=== PATIENT | female | born 1995 | race Hispanic/Latino ===

== ENCOUNTER 2018-03-06 23:06 | Emergency (ER) | payer SELFPAY ==
[2018-03-07 00:12] LABS: Absolute Lymphocytes (CBC) 2.8 K/uL (0.7-4.9); Absolute Monocytes 0.4 K/uL (0.1-1.3); Absolute Neutrophil 3.2 K/uL (1.8-8.0); Basophils % 0.5 % (0-1.3); Eosinophils % 1.1 % (0-4.4); Hematocrit 37.2 % (36.0-45.0); Lymphocytes % 42.6 % (15.3-44.8); MCH 31.7 pg (27.0-35.0); MCV 92.2 fL (80-100); MPV 7.9 fL (7.6-11.3); Monocytes % 6.5 % (3.3-12.3); RBC Red Blood Cell Count 4.04 M/uL (3.86-4.86)
[2018-03-07 00:17] LABS: Urine Blood 1+ (NEG); Urine Glucose NEGATIVE (NEG); Urine Protein NEGATIVE (NEG); Urine Specific Gravity 1.025 (1.005-1.030)
[2018-03-07 00:37] LABS: BUN Blood Urea Nitrogen 9 mg/dL (7-18); Bicarbonate 26 mmol/L (21-32); Glucose Level 85 mg/dL (74-106); Potassium 3.9 mmol/L (3.5-5.1); Sodium Level 141 mmol/L (136-145)
--- NOTE | 2018-03-07 03:39 | EDPHYS ---
Physician Documentation [facility] Name: Lilia Nunez Age: 22 yrs Sex: Female : 1995 Arrival Date: 03/06/2018 Time: 23:07 Bed 23 Private MD: ED Physician Misha Muñoz HPI: 03/07 00:06 This 22 yrs old Female presents to ER via Ambulatory with complaints of jr8 Nausea, Abdominal Pain. 00:06 The patient presents to the emergency department with nausea, abdominal pain, of the jr8 right lower quadrant and left lower quadrant, described as crampy, stabbing. Onset: The symptoms/episode began/occurred gradually, 2 week(s) ago. Possible causes: unknown. The symptoms are aggravated by nothing. The symptoms are alleviated by nothing. Associated signs and symptoms: Pertinent positives: vaginal bleeding. Severity of symptoms: At their worst the symptoms were mild in the emergency department the symptoms are unchanged. The patient has not experienced similar symptoms in the past. The patient has not recently seen a physician. 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 - Social history:: Smoking status: Patient uses tobacco products, smokes one-half pack cigarettes per day. - Ebola Screening: : No symptoms or risks identified at this time. ROS: 03/07 00:06 ENT: Negative for injury, pain, and discharge, Neck: Negative for injury, pain, and jr8 swelling, Cardiovascular: Negative for chest pain, palpitations, and edema, Respiratory: Negative for shortness of breath, cough, wheezing, and pleuritic chest pain, Back: Negative for injury and pain, MS/Extremity: Negative for injury and deformity, Skin: Negative for injury, rash, and discoloration, Neuro: Negative for headache, weakness, numbness, tingling, and seizure. Abdomen/GI: Positive for abdominal pain, nausea, abdominal cramps, Negative for diarrhea, constipation, abdominal distension, anorexia, dysphagia, hematemesis, black/tarry stool, rectal pain, rectal bleeding, bowel incontinence, flatulence. : Positive for vaginal bleeding, menstrual abnormality, Negative for urinary symptoms, vaginal discharge, vaginal itching. Exam: 00:06 Cardiovascular: Regular rate and rhythm with a normal S1 and S2. No gallops, murmurs, jr8 or rubs. Normal PMI, no JVD. No pulse deficits. Respiratory: Lungs have equal breath sounds bilaterally, clear to auscultation and percussion. No rales, rhonchi or wheezes noted. No increased work of breathing, no retractions or nasal flaring. Back: No spinal tenderness. No costovertebral tenderness. Full range of motion. Skin: Warm, dry with normal turgor. Normal color with no rashes, no lesions, and no evidence of cellulitis. MS/ Extremity: Pulses equal, no cyanosis. Neurovascular intact. Full, normal range of motion. Neuro: Awake and alert, GCS 15, oriented to person, place, time, and situation. Cranial nerves II-XII grossly intact. Motor strength 5/5 in all extremities. Sensory grossly intact. Cerebellar exam normal. Normal gait. 00:06 Abdomen/GI: Inspection: abdomen appears normal, Bowel sounds: active, all quadrants, Palpation: soft, in all quadrants, mild abdominal tenderness, in the suprapubic area, right lower quadrant and left lower quadrant, mass, is not appreciated, rebound tenderness, is not appreciated, voluntary guarding, is not appreciated, involuntary guarding, is not appreciated, no appreciated organomegaly, Indicators: McBurney's point is not tender, Leon's sign is negative, Rovsing's sign is negative, Obturator sign is negative, Liver: no appreciated palpable abnormalities, tenderness, is not appreciated. Vital Signs: 03/06 23:47 BP 148 / 100; Pulse 87; Resp 20; Temp 98.1; Pulse Ox 97% on R/A; Weight 72.57 kg (R); ak1 Height 5 ft. 2 in. (157.48 cm) (R); Pain 04/07; 03/07 00:43 BP 120 / 65; Pulse 55; Resp 17; Pulse Ox 100% on R/A; kr2 02:30 BP 134 / 72; Pulse 62; Resp 20; Pulse Ox 100% on R/A; Pain 10; fc 03:50 BP 99 / 70; Pulse 58; Resp 16; Temp 97.6; Pulse Ox 100% on R/A; Pain 0/10; ak1 03/06 23:47 Body Mass Index 29.26 (72.57 kg, 157.48 cm) ak1 MDM: 03/06 23:39 Patient medically screened. 03/07 02:55 ED course: Disposition severely delayed secondary to V-Rad returning imaging report . 03:37 Data reviewed: vital signs, nurses notes, lab test result(s), radiologic studies, CT jr8 scan, and as a result, I will discharge patient. Data interpreted: Pulse oximetry: on room air is 100 %. Interpretation: normal. Counseling: I had a detailed discussion with the patient and/or guardian regarding: the historical points, exam findings, and any diagnostic results supporting the discharge/admit diagnosis, lab results, radiology results, the need for outpatient follow up, an OB/Gyne specialist, to return to the emergency department if symptoms worsen or persist or if there are any questions or concerns that arise at home. 03/06 23:49 Order name: CBC with Diff; Complete Time: 00:40 03/06 23:49 Order name: Basic Metabolic Panel; Complete Time: 00:40 03/06 23:49 Order name: IV; Complete Time: 00:10 03/07 00:12 Order name: Urine Dipstick--Ancillary (enter results); Complete Time: 00:28 03/07 00:12 Order name: Urine --Ancillary (enter results); Complete Time: 00:28 03/07 00:41 Order name: CT Abd/Pelvis - W/Contrast 03/06 23:49 Order name: Urine Test (obtain specimen); Complete Time: 00:10 03/06 23:49 Order name: Urine Dipstick-Ancillary (obtain specimen); Complete Time: 00: Administered Medications: No medications were administered Disposition: 06:58 Co-signature as Attending Physician, Misha Muñoz MD I agree with the assessment and jacek plan of care. Disposition: 03/07/18 03:38 Discharged to Home. Impression: Abdominal and pelvic pain. - Condition is Stable. - Discharge Instructions: Abdominal Pain, Adult. - Prescriptions for Ibuprofen 800 mg Oral Tablet - take 1 tablet by ORAL route every 12 hours As needed take with food; 20 tablet. Zofran 4 mg Oral Tablet - take 1 tablet by ORAL route every 12 hours As needed; 20 tablet. - Medication Reconciliation Form, Thank You Letter, Antibiotic Education, Prescription Opioid Use form. - Follow up: Private Physician; When: 2 - 3 days; Reason: Recheck today's complaints, Continuance of care, Re-evaluation by your physician. - Problem is new. - Symptoms have improved. Signatures: Dispatcher [employer] EDTX Misha Muñoz MD MD cha Roszak, Josh, PA PA jr8 Samantha Saucedo, RN RN ak1 Corrections: (The following items were deleted from the chart) 03:51 03:38 03/07/2018 03:38 Discharged to Home. Impression: Abdominal and pelvic pain. ak1 Condition is Stable. Forms are Medication Reconciliation Form, Thank You Letter, Antibiotic Education, Prescription Opioid Use. Follow up: Private Physician; When: 2 - 3 days; Reason: Recheck today's complaints, Continuance of care, Re-evaluation by your physician. Problem is new. Symptoms have improved. jr8
--- NOTE | 2018-03-07 03:39 | ER ---
Nurse's Notes [facility] Name: Lilia Nunez Age: 22 yrs Sex: Female : 1995 Arrival Date: 03/06/2018 Time: 23:07 Bed 23 Private MD: Diagnosis: Abdominal and pelvic pain Presentation: 03/06 23:45 Presenting complaint: Patient states: mid and lower abd pain since 02/15 after starting ak1 her cycle a second time for the month. pt LMP 01/30/18. pt c/o nausea. Transition of care: patient was not received from another setting of care. Onset of symptoms is unknown. Risk Assessment: Do you want to hurt yourself or someone else? Patient reports no desire to harm self or others. Initial Sepsis Screen: Does the patient meet any 2 criteria? No. Patient's initial sepsis screen is negative. Does the patient have a suspected source of infection? No. Patient's initial sepsis screen is negative. Care prior to arrival: None. 23:45 Method Of Arrival: Ambulatory ak1 23:45 Acuity: TERRY 3 ak1 Triage Assessment: 23:47 General: Appears in no apparent distress. Behavior is calm, cooperative. Pain: ak1 Complains of pain in abdomen. EENT: No signs and/or symptoms were reported regarding the EENT system. Neuro: No deficits noted. Cardiovascular: No deficits noted. Respiratory: No deficits noted. GI: Reports lower abdominal pain, nausea. : Reports vaginal bleeding that is. Derm: No signs and/or symptoms reported regarding the dermatologic system. Musculoskeletal: No signs and/or symptoms reported regarding the musculoskeletal system. 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 - Social history:: Smoking status: Patient uses tobacco products, smokes one-half pack cigarettes per day. - Ebola Screening: : No symptoms or risks identified at this time. Screenin:48 Abuse screen: Denies threats or abuse. Denies injuries from another. Nutritional ak1 screening: No deficits noted. Tuberculosis screening: No symptoms or risk factors identified. Fall Risk None identified. Assessment: 23:55 General: Appears in no apparent distress. uncomfortable, well groomed, well developed, kr2 well nourished, Behavior is calm, cooperative, appropriate for age. Pain: Complains of pain in suprapubic area, right lower quadrant and left lower quadrant Pain currently is 5 out of 10 on a pain scale. Quality of pain is described as aching, crampy, tender, Is continuous, Alleviated by rest, Aggravated by increased activity. Neuro: Level of Consciousness is awake, alert, obeys commands, Oriented to person, place, time, situation, Appropriate for age. Cardiovascular: Capillary refill < 3 seconds in bilateral fingers Patient's skin is warm and dry. Respiratory: Airway is patent Respiratory effort is even, unlabored, Respiratory pattern is regular, symmetrical. GI: Abdomen is flat, non-distended, Reports nausea, vomiting. : Urine is clear. EENT: Oral mucosa is moist. Derm: Skin is intact, is healthy with good turgor, Skin is clammy, Skin is pink, Skin temperature is warm. Musculoskeletal: Circulation, motion, and sensation intact. 03/07 01:15 General: Appears in no apparent distress. uncomfortable, Behavior is calm, cooperative, fc appropriate for age. Pain: Complains of pain in abdomen Quality of pain is described as aching, crampy, tender, Is continuous. Neuro: Level of Consciousness is awake, alert, obeys commands, Oriented to person, place, time, situation. Cardiovascular: No deficits noted. Respiratory: No deficits noted. GI: Abdomen is non-distended, Bowel sounds present X 4 quads. Abd is soft X 4 quads Abdomen is tender to palpation X 4 quads. Reports nausea, vomiting. : No deficits noted. EENT: No deficits noted. Derm: Skin is pink, warm \T\ dry. Musculoskeletal: Circulation, motion, and sensation intact. Capillary refill < 3 seconds. 02:45 Reassessment: No changes from previously documented assessment. Patient and/or family fc updated on plan of care and expected duration. Pain level reassessed. Patient is alert, oriented x 3, equal unlabored respirations, skin warm/dry/pink. Awaiting results of CT. Vital Signs: 03/06 23:47 BP 148 / 100; Pulse 87; Resp 20; Temp 98.1; Pulse Ox 97% on R/A; Weight 72.57 kg (R); ak1 Height 5 ft. 2 in. (157.48 cm) (R); Pain 8/10; 07 00:43 BP 120 / 65; Pulse 55; Resp 17; Pulse Ox 100% on R/A; kr2 02:30 BP 134 / 72; Pulse 62; Resp 20; Pulse Ox 100% on R/A; Pain 4/10; fc 03:50 BP 99 / 70; Pulse 58; Resp 16; Temp 97.6; Pulse Ox 100% on R/A; Pain 0/10; ak1 03/06 23:47 Body Mass Index 29.26 (72.57 kg, 157.48 cm) ak1 ED Course: 03/06 23:07 Patient arrived in ED. es 23:39 Jadiel Roth PA is PHCP. jr8 23:39 Misha Muñoz MD is Attending Physician. jr8 23:46 Triage completed. ak1 23:47 Arm band placed on Patient placed in an exam room, on a stretcher, on pulse oximetry, ak1 Patient notified of wait time. 23:49 Patient has correct armband on for positive identification. Bed in low position. Call ak1 light in reach. Side rails up X 1. Pulse ox on. NIBP on. 23:59 Mei Vizcarra, RN is Primary Nurse. kr2 03/07 00:00 Inserted saline lock: 22 gauge in right antecubital area, using aseptic technique. kr2 Blood collected. 01:52 CT Abd/Pelvis - W/Contrast In Process Unspecified. EDMS 01:53 CT completed. Patient tolerated procedure well. Patient moved to CT via wheelchair. eh Patient moved back from CT. 03:49 No provider procedures requiring assistance completed. IV discontinued, intact, ak1 bleeding controlled, No redness/swelling at site. Pressure dressing applied. Administered Medications: No medications were administered Outcome: 03:38 Discharge ordered by . jr8 03:50 Discharged to home ambulatory, with family. ak1 03:50 Condition: improved 03:50 Discharge instructions given to patient, family, Instructed on discharge instructions, follow up and referral plans. medication usage, Demonstrated understanding of instructions, follow-up care, medications, Prescriptions given X 2. 03:51 Patient left the ED. ak1 Signatures: Dispatcher [employer] Natalia Mcdaniels Ervin eh Chretien, Felicia, RN RN Jadiel Pratt PA PA jr8 Krenek, Amber RN RN ak1 Mei Vizcarra RN RN kr2
--- NOTE | 2018-03-07 08:48 | RAD REPORT ---
EXAM DESCRIPTION: CTAbdomen Pelvis W Contrast - 03/07/2018 6:44 am CLINICAL HISTORY: Abdominal pain. iv only;Abd pain COMPARISON: Head C Spine Cap W Con dated 02/27/2017 TECHNIQUE: Biphasic CT imaging of the abdomen and pelvis was performed with 100 ml non-ionic IV cont rast. All CT scans are performed using dose optimization technique as appropriate and may include automated exposure control or mA/KV adjustment according to patient size. FINDINGS: The lung bases are clear. The liver, spleen, pancreas, adrenal glands and kidneys are within normal limits. No bowel obstruction, free air, free fluid or abscess. Moderate fecal retention in the colon. The ashvin endix is normal. No evidence of significant lymphadenopathy. No suspicious bony findings. IMPRESSION: No acute intra-abdominal or pelvic finding. Moderate fecal retention in the colon.
== END 2018-03-07 03:51 | disposition home or self-care (01) ==
LOC: ER 23:06
DX: R10.2 Pelvic and perineal pain (principal); F17.210 Nicotine dependence, cigarettes, uncomplicated
CPT/HCPCS: 36415; 74177; 80048; 81003; 81025; 85025; 99284; Q9967

== ENCOUNTER 2018-06-06 00:58 | Emergency (ER) | payer SELFPAY ==
[2018-06-06] MEDS ORDERED: ONDANSETRON 4 MG/2 ML VIAL ONE (01:51)
[2018-06-06] MEDS ORDERED: NA CHLORIDE 0.9% 2,000 ML ONE (01:51)
[2018-06-06 01:57] LABS: Absolute Lymphocytes (CBC) 1.2 K/uL (0.7-4.9); Absolute Monocytes 0.5 K/uL (0.1-1.3); Basophils % 0.3 % (0-1.3); Eosinophils % 0.1 % (0-4.4); Hematocrit 38.1 % (36.0-45.0); Lymphocytes % 15.9 % (15.3-44.8); MCH 32.4 pg (27.0-35.0); MCV 91.8 fL (80-100); MPV 7.8 fL (7.6-11.3); Monocytes % 5.8 % (3.3-12.3); RBC Red Blood Cell Count 4.16 M/uL (3.86-4.86)
[2018-06-06 02:12] LABS: ALT/SGPT 21 U/L (12-78); AST/SGOT 13 U/L (15-37); Albumin 3.8 g/dL (3.4-5.0); Alkaline Phosphatase 79 U/L (45-117); BUN Blood Urea Nitrogen 10 mg/dL (7-18); Bicarbonate 25 mmol/L (21-32); Bilirubin Direct < 0.1 mg/dL (0-0.2); Bilirubin Total 0.2 mg/dL (0.2-1.0); Glucose Level 126 mg/dL (74-106); Lipase 102 U/L (73-393); Potassium 3.9 mmol/L (3.5-5.1); Protein, Total 7.3 g/dL (6.4-8.2); Sodium Level 139 mmol/L (136-145)
--- NOTE | 2018-06-06 02:56 | ER ---
Nurse's Notes [facility] Name: Lilia Nunez Age: 23 yrs Sex: Female : 1995 Arrival Date: 06/06/2018 Time: 01:00 Bed 5 Private MD: Diagnosis: Gastrenteritis Presentation: 06/06 01:09 Presenting complaint: Patient states: Vomiting x5 today; Denies any fever, diarrhea, lp1 abdominal pain; States feeling generalized weakness. Transition of care: patient was not received from another setting of care. Onset of symptoms was June 06, 2018. Risk Assessment: Do you want to hurt yourself or someone else? Patient reports no desire to harm self or others. Initial Sepsis Screen: Does the patient meet any 2 criteria? No. Patient's initial sepsis screen is negative. Does the patient have a suspected source of infection? No. Patient's initial sepsis screen is negative. Care prior to arrival: None. 01:09 Method Of Arrival: Ambulatory lp1 01:09 Acuity: TERRY 3 lp1 Triage Assessment: 01:15 General: Appears in no apparent distress. comfortable, Behavior is calm, cooperative, cc3 appropriate for age. Pain: Denies pain. GI: Reports vomiting, since yesterday. 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 - Social history:: Smoking status: Patient/guardian denies using tobacco. - Ebola Screening: : No symptoms or risks identified at this time. Screenin:12 Abuse screen: Denies threats or abuse. Denies injuries from another. Nutritional lp1 screening: No deficits noted. Tuberculosis screening: No symptoms or risk factors identified. Fall Risk None identified. Assessment: 01:15 General: Appears in no apparent distress. comfortable, Behavior is calm, cooperative, cc3 appropriate for age. Pain: Denies pain. Neuro: Level of Consciousness is awake, alert, obeys commands, Oriented to person, place, time, situation, Appropriate for age. Cardiovascular: Denies chest pain. Respiratory: Airway is patent Respiratory effort is even, unlabored, Respiratory pattern is regular, symmetrical. GI: Abdomen is round non-distended. : No signs and/or symptoms were reported regarding the genitourinary system. EENT: No signs and/or symptoms were reported regarding the EENT system. Derm: No signs and/or symptoms reported regarding the dermatologic system. Musculoskeletal: No signs and/or symptoms reported regarding the musculoskeletal system. 02:15 Reassessment: Patient appears in no apparent distress at this time. Patient and/or cc3 family updated on plan of care and expected duration. Pain level reassessed. Patient is alert, oriented x 3, equal unlabored respirations, skin warm/dry/pink. 03:00 Reassessment: Dr. Santoyo discharged the patient home with prescription given. IV cannula cc3 removed and patient left ER vitally stable and ambulatory. Vital Signs: 01:11 BP 132 / 98; Pulse 93; Resp 16; Pulse Ox 100% on R/A; Weight 74.84 kg; Height 5 ft. 2 lp1 in. (157.48 cm); Pain 0/10; 02:45 BP 128 / 74; Pulse 92; Resp 16 S; Pulse Ox 100% on R/A; Pain 0/10; cc3 01:11 Body Mass Index 30.18 (74.84 kg, 157.48 cm) lp1 ED Course: 01:00 Patient arrived in ED. ds1 01:10 Triage completed. lp1 01:11 Arm band placed on left wrist. lp1 01:15 Patient has correct armband on for positive identification. Bed in low position. Call cc3 light in reach. Side rails up X 1. 01:18 Denae Roldan is Primary Nurse. cc3 01:20 Terry Santoyo MD is Attending Physician. pkl 01:30 Inserted saline lock: 20 gauge in right antecubital area, using aseptic technique. cc3 Blood collected. 02:50 Patient moved to radiology via wheelchair. kw 02:50 X-ray completed. Patient tolerated procedure well. kw 02:50 Patient moved back from radiology. kw 02:50 XRAY Abdomen Acute Series In Process Unspecified. EDMS 03:00 No provider procedures requiring assistance completed. IV discontinued, intact, cc3 bleeding controlled, No redness/swelling at site. Pressure dressing applied. Administered Medications: 01:40 Drug: NS 0.9% 1000 ml Route: IV; Rate: 1000 ml; Site: right antecubital; cc3 02:40 Follow up: Response: No adverse reaction; IV Status: Completed infusion; IV Intake: cc3 1000ml 01:40 Drug: Zofran 4 mg Route: IVP; Site: right antecubital; cc3 02:00 Follow up: Response: No adverse reaction; Nausea is decreased; Vomiting decreased cc3 02:29 Drug: NS 0.9% 1000 ml Route: IV; Rate: 125 ml/hr; Site: right antecubital; cc3 03:00 Follow up: Response: No adverse reaction; IV Status: Order to discontinue infusion; IV cc3 Intake: 100ml Intake: 02:40 IV: 1000ml; Total: 1000ml. cc3 03:00 IV: 100ml; Total: 1100ml. cc3 Outcome: 02:55 Discharge ordered by . teri 03:00 Discharged to home ambulatory. cc3 03:00 Condition: stable 03:00 Discharge instructions given to patient, Instructed on discharge instructions, follow up and referral plans. medication usage, Demonstrated understanding of instructions, follow-up care, medications, Prescriptions given X 1. 03:12 Patient left the ED. cc3 Signatures: Dispatcher [employer] Terry Pool MD MD pkl Sanford, Demi ds1 Argelia Briceno Laura, RN RN lp1 Denae Roldan cc3
--- NOTE | 2018-06-06 02:56 | EDPHYS ---
Physician Documentation [facility] Name: Lilia Nunez Age: 23 yrs Sex: Female : 1995 Arrival Date: 06/06/2018 Time: 01:00 Bed 5 Private MD: ED Physician Terry Santoyo HPI: 06/06 01:25 This 23 yrs old Female presents to ER via Ambulatory with complaints of pkl Vomiting. 01:25 The patient presents to the emergency department with nausea, vomiting, diarrhea. pkl Onset: The symptoms/episode began/occurred yesterday. 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 - Social history:: Smoking status: Patient/guardian denies using tobacco. - Ebola Screening: : No symptoms or risks identified at this time. ROS: 01:25 Eyes: Negative for injury, pain, redness, and discharge, ENT: Negative for injury, pkl pain, and discharge, Neck: Negative for injury, pain, and swelling, Cardiovascular: Negative for chest pain, palpitations, and edema, Respiratory: Negative for shortness of breath, cough, wheezing, and pleuritic chest pain. 01:25 Abdomen/GI: Positive for nausea, vomiting, and diarrhea. 01:25 Back: Negative for acute changes. 01:25 : Negative for urinary symptoms. 01:25 MS/extremity: Negative for acute changes. 01:25 Skin: Negative for rash. 01:25 Neuro: Negative for altered mental status. Exam: 01:25 Head/Face: Normocephalic, atraumatic. Eyes: Pupils equal round and reactive to light, pkl extra-ocular motions intact. Lids and lashes normal. Conjunctiva and sclera are non-icteric and not injected. Cornea within normal limits. Periorbital areas with no swelling, redness, or edema. ENT: Nares patent. No nasal discharge, no septal abnormalities noted. Tympanic membranes are normal and external auditory canals are clear. Oropharynx with no redness, swelling, or masses, exudates, or evidence of obstruction, uvula midline. Mucous membranes moist. Neck: Trachea midline, no thyromegaly or masses palpated, and no cervical lymphadenopathy. Supple, full range of motion without nuchal rigidity, or vertebral point tenderness. No Meningismus. Chest/axilla: Normal chest wall appearance and motion. Nontender with no deformity. No lesions are appreciated. Cardiovascular: Regular rate and rhythm with a normal S1 and S2. No gallops, murmurs, or rubs. Normal PMI, no JVD. No pulse deficits. Respiratory: Lungs have equal breath sounds bilaterally, clear to auscultation and percussion. No rales, rhonchi or wheezes noted. No increased work of breathing, no retractions or nasal flaring. 01:25 Abdomen/GI: Bowel sounds: normal, Palpation: abdomen is soft and non-tender, in all quadrants. 01:25 Back: Exam negative for acute changes. 01:25 : Exam negative for acute changes. 01:25 Musculoskeletal/extremity: Exam is negative for acute changes. 01:25 Skin: Exam negative for rash. 01:25 Neuro: Orientation: is normal, Mentation: is normal, Cranial nerves: grossly normal, Motor: is normal. Vital Signs: 01:11 BP 132 / 98; Pulse 93; Resp 16; Pulse Ox 100% on R/A; Weight 74.84 kg; Height 5 ft. 2 lp1 in. (157.48 cm); Pain 0/10; 02:45 BP 128 / 74; Pulse 92; Resp 16 S; Pulse Ox 100% on R/A; Pain 0/10; cc3 01:11 Body Mass Index 30.18 (74.84 kg, 157.48 cm) lp1 MDM: 01:20 Patient medically screened. pkl 02:45 Data reviewed: vital signs, nurses notes, lab test result(s), radiologic studies, plain pkl films. 06/06 01:24 Order name: Basic Metabolic Panel; Complete Time: 02:21 pkl 06/06 01:24 Order name: CBC with Diff; Complete Time: 02:21 pkl 06/06 01:24 Order name: Creatinine for Radiology; Complete Time: 02:21 pkl 06/06 01:24 Order name: Hepatic Function; Complete Time: 02:21 pkl 06/06 01:24 Order name: Lipase; Complete Time: 02:21 pkl 06/06 01:56 Order name: Urine Dipstick--Ancillary (enter results) ms 06/06 01:24 Order name: IV Saline Lock; Complete Time: 01:42 pkl 06/06 01:24 Order name: Labs collected and sent; Complete Time: 01:42 pkl 06/06 01:56 Order name: Urine --Ancillary (enter results) ms 06/06 02:22 Order name: XRAY Abdomen Acute Series pkl Administered Medications: 01:40 Drug: NS 0.9% 1000 ml Route: IV; Rate: 1000 ml; Site: right antecubital; cc3 02:40 Follow up: Response: No adverse reaction; IV Status: Completed infusion; IV Intake: cc3 1000ml 01:40 Drug: Zofran 4 mg Route: IVP; Site: right antecubital; cc3 02:00 Follow up: Response: No adverse reaction; Nausea is decreased; Vomiting decreased cc3 02:29 Drug: NS 0.9% 1000 ml Route: IV; Rate: 125 ml/hr; Site: right antecubital; cc3 03:00 Follow up: Response: No adverse reaction; IV Status: Order to discontinue infusion; IV cc3 Intake: 100ml Disposition: 06/06/18 02:55 Discharged to Home. Impression: Gastrenteritis. - Condition is Stable. - Prescriptions for Zofran 4 mg Oral Tablet - take 1 tablet by ORAL route every 12 hours As needed; 6 tablet. - Medication Reconciliation Form, Thank You Letter, Antibiotic Education, Prescription Opioid Use form. - Follow up: Private Physician; When: 1 - 2 days; Reason: Re-evaluation by your physician. - Problem is new. - Symptoms have improved. Signatures: Dispatcher [employer] EDMS Terry Santoyo MD MD pkl Gricelda Cisneros RN RN lp1 Denae Roldan cc3 Corrections: (The following items were deleted from the chart) 03:12 02:55 06/06/2018 02:55 Discharged to Home. Impression: Gastrenteritis. Condition is cc3 Stable. Forms are Medication Reconciliation Form, Thank You Letter, Antibiotic Education, Prescription Opioid Use. Follow up: Private Physician; When: 1 - 2 days; Reason: Re-evaluation by your physician. Problem is new. Symptoms have improved. pkl
[2018-06-06 05:49] LABS: Urine Blood 1+ (NEG); Urine Glucose NEGATIVE (NEG); Urine Protein NEGATIVE (NEG)
--- NOTE | 2018-06-06 09:21 | RAD REPORT ---
EXAM DESCRIPTION: RAD - Abdomen Acute Series - 06/06/2018 2:52 am CLINICAL HISTORY: Abdominal pain, vomiting COMPARISON: Chest exam 2008, CT imaging February 2018 FINDINGS: Lungs are clear. Heart size and pulmonary vasculature are normal. No pleural effusion, pne umothorax or other acute cardiopulmonary process seen. No gastric dilatation suspected. There is no dilated large or small bowel seen. Patient does have a m oderate amount of stool filling most of the colon. No free air or pneumatosis. No suspicious calcific ations. No other suspicious for significant findings. IMPRESSION: Moderate stool volume throughout the colon. No large or small bowel obstruction, free ai r or other surgically emergent finding.
== END 2018-06-06 03:12 | disposition home or self-care (01) ==
LOC: ER 00:58
DX: K52.9 Noninfective gastroenteritis and colitis, unspecified (principal)
CPT/HCPCS: 36415; 74022; 80048; 80076; 81003; 81025; 83690; 85025; 96361; 96374; 99284; J2405; J7030

== ENCOUNTER 2019-07-25 15:47 | Emergency (ER) | payer SELFPAY ==
--- OUTSIDE RECORDS SUMMARY | 2019-07-25 15:49 | XMS REPORT ---
:1995 [facility] Address [address] [place] [address] Dr. Williamson. [address] [place] [address] Care Team Providers Name Role Phone Unavailable Unavailable Unavailable Problems This patient has no known problems. Allergies, Adverse Reactions, Alerts This patient has no known allergies or adverse reactions. Medications This patient has no known medications.
[2019-07-25] MEDS ORDERED: TETANUS & DIPHTHERIA TOX,ADULT 0.5 ML VIAL ONE (16:14)
[2019-07-25] MEDS ORDERED: LIDOCAINE 1% MPF 5 ML VIAL ONE ×2 (16:14→16:40)
--- NOTE | 2019-07-25 17:11 | ER ---
Nurse's Notes [facility] Name: Lilia Nunez Age: 24 yrs Sex: Female : 1995 Arrival Date: 07/25/2019 Time: 15:48 Bed 8 Private MD: Diagnosis: Laceration without foreign body of left forearm;Fall on same level from slipping, tripping and stumbling Presentation: 07/25 15:54 Presenting complaint: Patient states: I got light headed while walking and fell on to la1 some rakes in the garage, laceration to left arm. Transition of care: patient was not received from another setting of care. Complicating Factors: There are no complicating factors for this patient. Onset of symptoms was July 25, 2019. Risk Assessment: Do you want to hurt yourself or someone else? Patient reports no desire to harm self or others. Initial Sepsis Screen: Does the patient meet any 2 criteria? No. Patient's initial sepsis screen is negative. Does the patient have a suspected source of infection? No. Patient's initial sepsis screen is negative. Care prior to arrival: None. 15:54 Method Of Arrival: Ambulatory la1 15:54 Acuity: TERRY 3 la1 Historical: - Allergies: 15:57 No Known Allergies; la1 - PMHx: 15:57 Asthma; la1 - Immunization history:: Adult Immunizations up to date. - Social history:: Smoking status: Patient uses tobacco products, smokes one pack cigarettes per day. - Ebola Screening: : No symptoms or risks identified at this time. Screenin:28 Abuse screen: Denies threats or abuse. Denies injuries from another. Nutritional rv screening: No deficits noted. Tuberculosis screening: No symptoms or risk factors identified. Fall Risk None identified. Assessment: 16:25 General: Appears in no apparent distress. comfortable, Behavior is calm, cooperative. rv Pain: Complains of pain in left arm. Neuro: Level of Consciousness is awake, alert, obeys commands, Oriented to person, place, time, situation. Cardiovascular: Patient's skin is warm and dry. Respiratory: Airway is patent. GI: No signs and/or symptoms were reported involving the gastrointestinal system. : No signs and/or symptoms were reported regarding the genitourinary system. EENT: No signs and/or symptoms were reported regarding the EENT system. Derm: Skin is intact. Musculoskeletal: Reports pain in left arm. Injury Description: Laceration sustained to left arm is clean, 2.6 to 7.5 cm long, not bleeding. 16:28 Reassessment: patient refused CT scan. rv 16:31 Reassessment: patient also refused Xray. referred to KRISTYN Stoll. rv 17:01 Reassessment: Patient appears in no apparent distress at this time. No changes from ph previously documented assessment. Patient is alert, oriented x 3, equal unlabored respirations, skin warm/dry/pink. 17:38 Reassessment: Patient appears in no apparent distress at this time. No changes from ph previously documented assessment. Patient is alert, oriented x 3, equal unlabored respirations, skin warm/dry/pink. Pt instructed on suture care and to follow up for suture removal in 10-14 days. Vital Signs: 15:57 BP 140 / 100; Pulse 104; Resp 16; Temp 98.1; Pulse Ox 100% on R/A; Weight 77.11 kg; la1 Height 5 ft. 2 in. (157.48 cm); 16:05 BP 126 / 75 Supine; Pulse 91; lt1 16:08 BP 122 / 83 Sitting; Pulse 87; lt1 16:11 BP 129 / 94 Standing; Pulse 106; lt1 17:39 BP 118 / 84; Pulse 87; Resp 18; Temp 97.9; Pulse Ox 99% on R/A; ph 15:57 Body Mass Index 31.09 (77.11 kg, 157.48 cm) la1 ED Course: 15:48 Patient arrived in ED. mr 15:56 Triage completed. la1 15:57 Arm band placed on left wrist. la1 15:59 Dodie Bruce FNP-C is [facility]. kb 15:59 Blaze Quiñones MD is Attending Physician. kb 16:18 Maria Luisa Hdz RN is Primary Nurse. ph 16:27 Wound care: to laceration located on left arm was cleaned with Hibiclens, irrigated rv with normal saline, dressed with 4X4s, Patient tolerated well. 16:28 Patient has correct armband on for positive identification. Bed in low position. Call rv light in reach. Side rails up X 1. Pulse ox on. NIBP on. 17:00 No provider procedures requiring assistance completed. Patient did not have IV access ph during this emergency room visit. Dressings: Kerlix X 1; left arm 4X4s. 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 Exp: rv 02/01/2021. Lot #: [id number]. } Route: IM; Site: right deltoid; 17:42 Follow up: Response: No adverse reaction ph 17:01 Drug: Lidocaine (1 %) 1 vials Volume: 5 ml; Route: Infiltration; ph Outcome: 17:10 Discharge ordered by . karel 17:41 Discharged to home ambulatory, with significant other. ph 17:41 Condition: good 17:41 Discharge instructions given to patient, Instructed on discharge instructions, follow up and referral plans. medication usage, wound care, Demonstrated understanding of instructions, follow-up care, medications, wound care, Prescriptions given X 1. 17:42 Patient left the ED. ph Signatures: Dodie Bruce, DRONE OPERATOR-C DRONE OPERATOR-Ckb NolandNicole Lee, DRONE OPERATOR-C DRONE OPERATOR-Cla1 Maria Luisa Hdz, RN RN Harlan Marques, LYNETTE OJEDA Theresa, [facility]
--- NOTE | 2019-07-25 17:11 | EDPHYS ---
Physician Documentation [facility] Name: Lilia Nunez Age: 24 yrs Sex: Female : 1995 Arrival Date: 07/25/2019 Time: 15:48 Bed 8 Private MD: ED Physician Blaze Quiñones HPI: 07/25 16:24 This 24 yrs old Female presents to ER via Ambulatory with complaints of Passed kb Out Prior To Arrival, Laceration To Arm. 17:11 Details of fall: The patient fell from an upright position, while walking. Onset: The kb symptoms/episode began/occurred just prior to arrival. Associated injuries: The patient sustained palmar aspect of left forearm, laceration, 2 lacerations, each 4cm in length. Severity of symptoms: At their worst the symptoms were moderate, in the emergency department the symptoms are unchanged. The patient has not experienced similar symptoms in the past. The patient has not recently seen a physician. Pt reports she was walking outside and either tripped on the step or got lightheaded and the step caused her to fall. Pt fell onto metal rake with left arm causing 2 lacerations. Pt believes she passed out for a few seconds after fall. Can recall all events. . Historical: - Allergies: 15:57 No Known Allergies; la1 - PMHx: 15:57 Asthma; la1 - Immunization history:: Adult Immunizations up to date. - Social history:: Smoking status: Patient uses tobacco products, smokes one pack cigarettes per day. - Ebola Screening: : No symptoms or risks identified at this time. ROS: 16:21 Constitutional: Negative for fever, chills, and weight loss, Eyes: Negative for injury, kb pain, redness, and discharge, ENT: Negative for injury, pain, and discharge, Neck: Negative for injury, pain, and swelling, Cardiovascular: Negative for chest pain, palpitations, and edema, Respiratory: Negative for shortness of breath, cough, wheezing, and pleuritic chest pain, Abdomen/GI: Negative for abdominal pain, nausea, vomiting, diarrhea, and constipation, Back: Negative for injury and pain. 16:21 Skin: Positive for laceration(s), of the palmar aspect of left forearm. 16:21 Neuro: Positive for dizziness, headache, loss of consciousness. kb Exam: 16:21 Constitutional: This is a well developed, well nourished patient who is awake, alert, kb and in no acute distress. Head/Face: Normocephalic, atraumatic. Eyes: Pupils equal round and reactive to light, extra-ocular motions intact. Lids and lashes normal. Conjunctiva and sclera are non-icteric and not injected. Cornea within normal limits. Periorbital areas with no swelling, redness, or edema. ENT: Nares patent. No nasal discharge, no septal abnormalities noted. Tympanic membranes are normal and external auditory canals are clear. Oropharynx with no redness, swelling, or masses, exudates, or evidence of obstruction, uvula midline. Mucous membranes moist. Neck: Trachea midline, no thyromegaly or masses palpated, and no cervical lymphadenopathy. Supple, full range of motion without nuchal rigidity, or vertebral point tenderness. No Meningismus. Chest/axilla: Normal chest wall appearance and motion. Nontender with no deformity. No lesions are appreciated. Cardiovascular: Regular rate and rhythm with a normal S1 and S2. No gallops, murmurs, or rubs. Normal PMI, no JVD. No pulse deficits. Respiratory: Lungs have equal breath sounds bilaterally, clear to auscultation and percussion. No rales, rhonchi or wheezes noted. No increased work of breathing, no retractions or nasal flaring. Abdomen/GI: Soft, non-tender, with normal bowel sounds. No distension or tympany. No guarding or rebound. No evidence of tenderness throughout. MS/ Extremity: Pulses equal, no cyanosis. Neurovascular intact. Full, normal range of motion. Neuro: Awake and alert, GCS 15, oriented to person, place, time, and situation. Cranial nerves II-XII grossly intact. Motor strength 5/5 in all extremities. Sensory grossly intact. Cerebellar exam normal. Normal gait. 16:21 Skin: injury, laceration(s), the wound is approximately 4 cm(s), of the palmar aspect of left forearm, the second wound is approximately 4 cm(s), of the palmar aspect of left forearm, that can be described as clean, no foreign body, linear, without bleeding. Vital Signs: 15:57 BP 140 / 100; Pulse 104; Resp 16; Temp 98.1; Pulse Ox 100% on R/A; Weight 77.11 kg; la1 Height 5 ft. 2 in. (157.48 cm); 16:05 BP 126 / 75 Supine; Pulse 91; lt1 16:08 BP 122 / 83 Sitting; Pulse 87; lt1 16:11 BP 129 / 94 Standing; Pulse 106; lt1 17:39 BP 118 / 84; Pulse 87; Resp 18; Temp 97.9; Pulse Ox 99% on R/A; ph 15:57 Body Mass Index 31.09 (77.11 kg, 157.48 cm) la1 Laceration: 17:05 Wound Repair of 8cm ( 3.1in ) subcutaneous laceration to palmar aspect of left forearm. kb Linear shaped.. Distal neuro/vascular/tendon intact. Anesthesia: Local anesthetic administered with 8 mls of 1% lidocaine. Wound prep: Extensive cleansing with hibiclenz by me, Wound irrigation with saline by me. Skin closed with 9 4-0 Prolene using interrupted sutures and sterile technique. Dressed with Neosporin, bandaid. Patient tolerated well. MDM: 15:59 Patient medically screened. kb 16:20 Data reviewed: vital signs, nurses notes. Data interpreted: Pulse oximetry: on room air kb is 100 %. Interpretation: normal. 17:07 Counseling: I had a detailed discussion with the patient and/or guardian regarding: the kb historical points, exam findings, and any diagnostic results supporting the discharge/admit diagnosis, the need for outpatient follow up, a family practitioner, to return to the emergency department if symptoms worsen or persist or if there are any questions or concerns that arise at home. ED course: Two parallel lacerations measuring 4cm each. 4 sutures placed through both lacerations to close skin. 2 simple sutures used to complete closure of distal laceration. 3 simple sutures placed to complete closure of proximal laceration.. 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 Lot #: [id number]. } Route: IM; Site: right deltoid; 17:42 Follow up: Response: No adverse reaction ph 17:01 Drug: Lidocaine (1 %) 1 vials Volume: 5 ml; Route: Infiltration; ph Disposition: 07/25/19 17:10 Discharged to Home. Impression: Laceration without foreign body of left forearm, Fall on same level from slipping, tripping and stumbling. - Condition is Stable. - Discharge Instructions: Laceration Care, Adult, Lade-nd-Lnlr, Fall Prevention in the Home, Poic-tg-Nmet. - Prescriptions for Diclofenac Sodium 75 mg Oral Tablet, Delayed Release (E.C.) - take 1 tablet by ORAL route 2 times per day As needed; 30 tablet. - Medication Reconciliation Form, Thank You Letter, Antibiotic Education, Prescription Opioid Use, Work release form form. - Follow up: Emergency Department; When: As needed; Reason: Worsening of condition. Follow up: Private Physician; When: 2 - 3 days; Reason: Recheck today's complaints, Continuance of care, Re-evaluation by your physician. - Notes: Have sutures removed in 10-14 days Keep clean and dry Addendum: 07/30/2019 09:56 Co-signature as Attending Physician, Blaze Quiñones MD I agree with the assessment and k dr plan of care. Signatures: Dispatcher [employer] EDOR Dodie Bruce, HOME CARE ASSOCIATE-C HOME CARE ASSOCIATE-Ckb Blaze Quiñones MD MD [facility] Nikunj Boswell HOME CARE ASSOCIATE-C HOME CARE ASSOCIATE-Cla1 Maria Luisa Hdz, RN RN Harlan Espinosa, LYNETTE RN rv Corrections: (The following items were deleted from the chart) 07/25 16:34 16:11 Head Brain Wo Cont+CT.RAD.BRZ ordered. [facility] EDOR 16:36 16:24 Forearm Left+RAD.RAD.BRZ ordered. [facility] EDOR 17:42 17:10 07/25/2019 17:10 Discharged to Home. Impression: Laceration without foreign body ph of left forearm; Fall on same level from slipping, tripping and stumbling. Condition is Stable. Forms are Medication Reconciliation Form, Thank You Letter, Antibiotic Education, Prescription Opioid Use. Follow up: Emergency Department; When: As needed; Reason: Worsening of condition. Follow up: Private Physician; When: 2 - 3 days; Reason: Recheck today's complaints, Continuance of care, Re-evaluation by your physician. kb
[2019-07-25 18:04] VITALS: BP 118/84; TEMP 97.9; O2SAT 99
== END 2019-07-25 17:42 | disposition home or self-care (01) ==
LOC: ER 15:47
PROC: 0DQQXZZ Repair Anus, External Approach (ICD-10-PCS; principal; 2019-07-25)
DX: S51.812A Laceration without foreign body of left forearm, initial encounter (principal); W01.0XXA Fall on same level from slipping, tripping and stumbling without subsequent striking against object, initial encounter; Y93.89 Activity, other specified; Y92.9 Unspecified place or not applicable; Z23 Encounter for immunization; F17.210 Nicotine dependence, cigarettes, uncomplicated
CPT/HCPCS: 90471; 90714; 99284

== ENCOUNTER 2019-07-28 22:53 | Emergency (ER) | payer SELFPAY ==
--- OUTSIDE RECORDS SUMMARY | 2019-07-28 22:54 | XMS REPORT ---
:1995 [facility] Address [address] [place] [address] Dr. Williamson. [address] [place] [address] Care Team Providers Name Role Phone Unavailable Unavailable Unavailable Problems This patient has no known problems. Allergies, Adverse Reactions, Alerts This patient has no known allergies or adverse reactions. Medications This patient has no known medications.
[2019-07-28 23:24] LABS: Absolute Lymphocytes (CBC) 1.2 K/uL (0.7-4.9); Basophils % 0.6 % (0-1.3); Hematocrit 40.8 % (36.0-45.0); Lymphocytes % 10.7 % (15.3-44.8); MPV 7.7 fL (7.6-11.3); RBC Red Blood Cell Count 4.64 M/uL (3.86-4.86)
[2019-07-28 23:33] LABS: Protime INR 1.16
[2019-07-28] MEDS ORDERED: NA CHLORIDE 0.9% 1,000 ML ONE (23:37)
[2019-07-28 23:46] LABS: ALT/SGPT 24 U/L (12-78); AST/SGOT 23 U/L (15-37); Albumin 4.3 g/dL (3.4-5.0); Alkaline Phosphatase 77 U/L (45-117); BUN Blood Urea Nitrogen 8 mg/dL (7-18); Bicarbonate 21 mmol/L (21-32); Bilirubin Direct 0.2 mg/dL (0-0.2); Bilirubin Total 0.6 mg/dL (0.2-1.0); Glucose Level 86 mg/dL (74-106); Potassium 3.1 mmol/L (3.5-5.1); Sodium Level 136 mmol/L (136-145)
[2019-07-28] MEDS ORDERED: CEFTRIAXONE/SWI 1gm 1 GM/10 ML SYR ONE (23:48)
[2019-07-29 00:11] LABS: Barbiturates NEGATIVE (NEGATIVE); Benzodiazepines NEGATIVE (NEGATIVE); Cocaine NEGATIVE (NEGATIVE); METHAMPHETAM POSITIVE (NEGATIVE); Methadone NEGATIVE (NEGATIVE); Opiates NEGATIVE (NEGATIVE); Phencyclidine NEGATIVE (NEGATIVE); THC Cannibis POSITIVE (NEGATIVE)
[2019-07-29 00:12] LABS: Urine Blood 3+ (NEG); Urine Glucose NEGATIVE (NEG); Urine Protein TRACE (NEG)
[2019-07-29] MEDS ORDERED: POTASSIUM 25 MEQ EFFERV TAB ONE (01:46)
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
[2019-07-29 05:19] VITALS: BP 132/88; TEMP 98.6; O2SAT 99
--- NOTE | 2019-07-29 06:12 | EKG ---
Test Date: 2019-07-28 Test Time: 23:21:19 Storm Window Installer: GIGI MEASUREMENT RESULTS: Intervals: Rate: 85 UT: 148 QRSD: 86 QT: 384 QTc: 456 [place]: P: 32 UT: 148 QRS: 132 T: 25 INTERPRETIVE STATEMENTS: Sinus rhythm with premature atrial complexes Right axis deviation Abnormal ECG No previous ECG available for comparison Electronically Signed On 07-29-19 06:12:13 PIN SORTER AND BAGGER by Rickey Bedolla
--- NOTE | 2019-07-31 13:37 | RAD REPORT ---
EXAM DESCRIPTION: CT of the head without contrast CLINICAL HISTORY: DIZZINESS COMPARISON: None available TECHNIQUE: Axial CT of the head obtained from the skull apex to the skull base without contrast. FINDINGS: No acute intracranial hemorrhage identified. No mass, mass effect, shift of the midline, a bnormal extra-axial fluid collection or CT evidence of acute ischemic change identified. The ventricu lar system is unremarkable. No acute abnormalities of the supratentorial white matter, basal gangli a, cerebellum, or brainstem. The visualized paranasal sinuses and the mastoids are clear. No skull fracture identified. Visualized orbits and globes are unremarkable. IMPRESSION: 1. No acute intracranial abnormality identified. This exam was performed according to our departmental dose-optimization program, which includes autom ated exposure control, adjustment of the mA and/or kV according to patient size and/or use of iterati ve reconstruction technique. Electronically signed by: Guanaco Wilcox 07/29/2019 1:28 AM FIRE MANAGEMENT OFFICER Due to temporary technical issues with the PACS/Fluency reporting system, reports are being signed by the in house radiologist as a courtesy to ensure prompt reporting. The interpreting radiologist is f ully responsible for the content of the report.
== END 2019-07-29 04:41 | disposition home or self-care (01) ==
LOC: ER 22:53
DX: T74.21XA Adult sexual abuse, confirmed, initial encounter (principal); T43.625A Adverse effect of amphetamines, initial encounter; N93.9 Abnormal uterine and vaginal bleeding, unspecified; N39.0 Urinary tract infection, site not specified; E87.6 Hypokalemia; Y00.XXXA Assault by blunt object, initial encounter; Y93.89 Activity, other specified; Y92.9 Unspecified place or not applicable; F17.210 Nicotine dependence, cigarettes, uncomplicated
CPT/HCPCS: 36415; 70450; 80048; 80076; 80307; 80320; 80329; 81003; 81025; 85025; 85610; 85730; 93005; 96361; 96365; 99284; J0696; J7030

== ENCOUNTER 2019-07-30 13:21 | Emergency (ER) | payer SELFPAY ==
--- OUTSIDE RECORDS SUMMARY | 2019-07-30 13:23 | XMS REPORT ---
:1995 [facility] Address [address] [place] [address] [address] [place] [address] Care Team Providers Name Role Phone Unavailable Unavailable Unavailable Problems This patient has no known problems. Allergies, Adverse Reactions, Alerts This patient has no known allergies or adverse reactions. Medications This patient has no known medications.
--- NOTE | 2019-07-30 14:33 | EDPHYS ---
Physician Documentation [facility] Name: Lilia Nunez Age: 24 yrs Sex: Female : 1995 Arrival Date: 07/30/2019 Time: 13:24 Bed 9 Private MD: ED Physician Arnold Nunez HPI: 07/30 16:06 This 24 yrs old Female presents to ER via Ambulatory with complaints of Suture la1 Removal. 16:06 The patient has sutures on the palmar aspect of left forearm. Sutures/elba progress: la1 The patient has no c/o's. The wound is well-healing with no redness, swelling, discharge, or dehiscence reported. Pt with well approximated wounds to left forearm.. 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 - Social history:: Smoking status: Patient uses tobacco products, smokes one pack cigarettes per day. - Ebola Screening: : No symptoms or risks identified at this time. ROS: 16:08 Constitutional: Negative for fever, chills, and weight loss, Cardiovascular: Negative la1 for chest pain, palpitations, and edema, Respiratory: Negative for shortness of breath, cough, wheezing, and pleuritic chest pain, MS/Extremity: Negative for injury and deformity, Skin: Negative for injury, rash, and discoloration, Neuro: Negative for headache, weakness, numbness, tingling, and seizure. Exam: 16:08 Constitutional: This is a well developed, well nourished patient who is awake, alert, la1 and in no acute distress. Cardiovascular: Regular rate and rhythm with a normal S1 and S2. No gallops, murmurs, or rubs. Normal PMI, no JVD. No pulse deficits. Respiratory: Lungs have equal breath sounds bilaterally, clear to auscultation and percussion. No rales, rhonchi or wheezes noted. No increased work of breathing, no retractions or nasal flaring. Abdomen/GI: Soft, non-tender, with normal bowel sounds. No distension or tympany. No guarding or rebound. No evidence of tenderness throughout. Skin: Warm, dry with normal turgor. Normal color with no rashes, no lesions, and no evidence of cellulitis. MS/ Extremity: Pulses equal, no cyanosis. Neurovascular intact. Full, normal range of motion. Neuro: Awake and alert, GCS 15, oriented to person, place, time, and situation. Cranial nerves II-XII grossly intact. Motor strength 5/5 in all extremities. Sensory grossly intact. Cerebellar exam normal. Normal gait. Vital Signs: 13:34 BP 122 / 89; Pulse 115; Resp 20 S; Temp 98.2(TE); Pulse Ox 99% on R/A; Pain 0/10; aa5 Procedures: 16:08 Suture/Staple removal: Removed 9 sutures, from palmar aspect of left forearm, site la1 appears well healed, Patient tolerated well. MDM: 14:13 Patient medically screened. la1 14:32 Data reviewed: vital signs, nurses notes. Counseling: I had a detailed discussion with la1 the patient and/or guardian regarding: the historical points, exam findings, and any diagnostic results supporting the discharge/admit diagnosis. Administered Medications: No medications were administered Disposition: 17:10 Co-signature as Attending Physician, Arnold Nunez MD. rn Disposition: 07/30/19 14:32 Discharged to Home. Impression: Encounter for removal of sutures. - Condition is Stable. - Discharge Instructions: Suture Removal, Care After, Incision Care, Adult. - Medication Reconciliation Form, Thank You Letter form. - Follow up: Private Physician; When: As needed; Reason: Wound Recheck, Recheck today's complaints, Re-evaluation by your physician. Signatures: Arnold Nunez MD MD rn Calderon, Audri RN RN aa5 Nikunj Boswell, SYRUP MACHINE LABORER-C SYRUP MACHINE LABORER-Cla1 Corrections: (The following items were deleted from the chart) 14:43 14:32 07/30/2019 14:32 Discharged to Home. Impression: Encounter for removal of aa5 sutures. Condition is Stable. Forms are Medication Reconciliation Form, Thank You Letter, Antibiotic Education, Prescription Opioid Use. Follow up: Private Physician; When: As needed; Reason: Wound Recheck, Recheck today's complaints, Re-evaluation by your physician. la1
--- NOTE | 2019-07-30 14:33 | ER ---
Nurse's Notes [facility] Name: Lilia Nunez Age: 24 yrs Sex: Female : 1995 Arrival Date: 07/30/2019 Time: 13:24 Bed 9 Private MD: Diagnosis: Encounter for removal of sutures Presentation: 07/30 13:32 Presenting complaint: Patient states: "I just need the sutures removed from my left aa5 forearm". Sutures were placed 07/25/19. Transition of care: patient was not received from another setting of care. Onset of symptoms was July 30, 2019. Risk Assessment: Do you want to hurt yourself or someone else? Patient reports no desire to harm self or others. Initial Sepsis Screen: Does the patient meet any 2 criteria? No. Patient's initial sepsis screen is negative. Does the patient have a suspected source of infection? No. Patient's initial sepsis screen is negative. Care prior to arrival: None. 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 - Social history:: Smoking status: Patient uses tobacco products, smokes one pack cigarettes per day. - Ebola Screening: : No symptoms or risks identified at this time. Assessment: 13:35 General: Appears comfortable, Behavior is cooperative. Pain: Denies pain. Neuro: Level aa5 of Consciousness is awake, alert, obeys commands, Oriented to person, place, time, situation. Cardiovascular: Patient's skin is warm and dry. Respiratory: Airway is patent Respiratory effort is even, unlabored, Respiratory pattern is regular, symmetrical. GI: No signs and/or symptoms were reported involving the gastrointestinal system. : No signs and/or symptoms were reported regarding the genitourinary system. EENT: No signs and/or symptoms were reported regarding the EENT system. Derm: Skin is pink, warm \\T\\ dry. Musculoskeletal: Range of motion: intact in all extremities. Vital Signs: 13:34 BP 122 / 89; Pulse 115; Resp 20 S; Temp 98.2(TE); Pulse Ox 99% on R/A; Pain 0/10; aa5 ED Course: 13:24 Patient arrived in ED. mr 13:32 Arm band placed on. aa5 13:33 Triage completed. aa5 14:13 Nikunj Boswell FNP-C [facility]. la1 14:13 Arnold Nunez MD is Attending Physician. la1 14:41 Kellie Lopez, RN is Primary Nurse. aa5 Administered Medications: No medications were administered Outcome: 14:32 Discharge ordered by . la1 14:40 Patient left the ED. aa5 14:40 Eloped from patient exam room, after seeing physician Time discovered patient gone: aa5 July 30, 2019 at 14:40 Signatures: Nicole Noland mr Kellie Lopez, RN RN aa5 Nikunj Boswell FNP-C HOSPITAL TRAY SERVICE WORKER-Cla1 Corrections: (The following items were deleted from the chart) 14:44 14:43 Patient left the ED. aa5 aa5
[2019-07-30 15:19] VITALS: BP 122/89; TEMP 98.2; O2SAT 99
== END 2019-07-30 14:43 | disposition home or self-care (01) ==
LOC: ER 13:21
DX: Z48.02 Encounter for removal of sutures (principal)
CPT/HCPCS: 99281

== ENCOUNTER 2019-08-23 13:12 | Emergency (ER) | payer SELFPAY ==
--- OUTSIDE RECORDS SUMMARY | 2019-08-23 13:22 | XMS REPORT ---
:1995 [facility] [address] [place] [address] [address] [place] [address] Care Team Providers Name Role Phone Unavailable Unavailable Unavailable Problems This patient has no known problems. Allergies, Adverse Reactions, Alerts This patient has no known allergies or adverse reactions. Medications This patient has no known medications.
--- NOTE | 2019-08-23 13:44 | ER ---
Nurse's Notes [facility] Name: Lilia Nunez Age: 24 yrs Sex: Female : 1995 Arrival Date: 08/23/2019 Time: 13:13 Bed 25 Private MD: Diagnosis: Cutaneous abscess of other sites-left labia majora Presentation: 08/23 13:24 Presenting complaint: Patient states: "i think i have a boil down there" referring to sr5 the vaginal area. Reports pain both on the outside and inside the vagina. Denies change in vaginal discharge. Transition of care: patient was not received from another setting of care. Onset of symptoms was August 22, 2019. Risk Assessment: Do you want to hurt yourself or someone else? Patient reports no desire to harm self or others. Initial Sepsis Screen: Does the patient meet any 2 criteria? HR > 90 bpm. Does the patient have a suspected source of infection? No. Patient's initial sepsis screen is negative. Care prior to arrival: None. 13:24 Method Of Arrival: Ambulatory sr5 13:24 Acuity: TERRY 3 sr5 Triage Assessment: 13:26 General: Appears uncomfortable, Behavior is calm, cooperative. Pain: Complains of pain sr5 in groin Pain currently is 10 out of 10 on a pain scale. Neuro: No deficits noted. Cardiovascular: No deficits noted. Respiratory: No deficits noted. 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 - Social history:: Smoking status: Patient uses tobacco products, smokes one-half pack cigarettes per day. - Ebola Screening: : Patient negative for fever greater than or equal to 101.5 degrees Fahrenheit, and additional compatible Ebola Virus Disease symptoms. Screenin:40 Abuse screen: Denies threats or abuse. Denies injuries from another. Nutritional ca1 screening: No deficits noted. Tuberculosis screening: No symptoms or risk factors identified. Fall Risk None identified. Assessment: 13:40 General: Appears in no apparent distress. comfortable, Behavior is calm, cooperative, ca1 appropriate for age. Pain: Complains of pain in groin Pain currently is 10 out of 10 on a pain scale. Neuro: Level of Consciousness is awake, alert, obeys commands, Oriented to person, place, time, situation, Appropriate for age. Derm: Skin is intact, is healthy with good turgor, Skin is pink, warm \\T\\ dry. Abscess located on left labia majora is nickel sized, has no drainage, is raised, firm and tender upon palpation. Musculoskeletal: Circulation, motion, and sensation intact. Capillary refill < 3 seconds, Range of motion: intact in all extremities. Vital Signs: 13:26 BP 125 / 76; Pulse 110; Resp 18; Temp 98.3(O); Pulse Ox 100% ; Weight 77.11 kg (R); sr5 Height 5 ft. 2 in. (157.48 cm); Pain 10/10; 13:26 Body Mass Index 31.09 (77.11 kg, 157.48 cm) sr5 ED Course: 13:13 Patient arrived in ED. rg4 13:21 Dodie Bruce FNP-C is PHCP. kb 13:21 Arnold Nunez MD is Attending Physician. kb 13:26 Triage completed. sr5 13:26 Arm band placed on right wrist. sr5 13:30 Eryn Snyder, RN is Primary Nurse. ca1 13:40 Patient has correct armband on for positive identification. Placed in gown. Bed in low ca1 position. Call light in reach. Side rails up X 1. Pulse ox on. NIBP on. Warm blanket given. 13:40 No provider procedures requiring assistance completed. Urine collected: clean catch ca1 specimen, cloudy, Amount Voided: 50mL. Patient did not have IV access during this emergency room visit. Administered Medications: 13:49 Drug: Bactrim (160 mg-800 mg (DS) 1 tablet Route: PO; ca1 13:49 Follow up: Response: Medication administered at discharge. ca1 Outcome: 13:43 Discharge ordered by . kb 13:49 Discharged to home ambulatory, with significant other. ca1 13:49 Condition: stable 13:49 Discharge instructions given to patient, Instructed on discharge instructions, follow up and referral plans. medication usage, Demonstrated understanding of instructions, follow-up care, medications, Prescriptions given X 1. 13:50 Patient left the ED. ca1 Signatures: Dodie Brcue, WAN CHAVIRA-Jackson Frank RN RN sr5 Urszula Vanessa4 Eryn Snyder, RN RN ca1
--- NOTE | 2019-08-23 13:45 | EDPHYS ---
Physician Documentation [facility] Name: Lilia Nunez Age: 24 yrs Sex: Female : 1995 Arrival Date: 08/23/2019 Time: 13:13 Bed 25 Private MD: ED Physician Arnold Nunez HPI: 08/23 13:40 This 24 yrs old Female presents to ER via Ambulatory with complaints of kb Vaginal Pain. 13:40 The patient presents with an abscess of the left labia majora. Description: swollen, kb warm. Onset: The symptoms/episode began/occurred yesterday. Possible cause(s): unknown. Associated signs and symptoms: Pertinent positives: swelling, Pertinent negatives: discharge, drainage, erythema, foreign body sensation, fever, headache, nausea, shortness of breath, vomiting. Modifying factors: the symptoms are alleviated by nothing, the symptoms are aggravated by pressure, squeezing the lesion and expressing the contents, touching. Severity of symptoms: At their worst the symptoms were moderate, in the emergency department the symptoms are unchanged. The patient has not experienced similar symptoms in the past. The patient has not recently seen a physician. 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 - Social history:: Smoking status: Patient uses tobacco products, smokes one-half pack cigarettes per day. - Ebola Screening: : Patient negative for fever greater than or equal to 101.5 degrees Fahrenheit, and additional compatible Ebola Virus Disease symptoms. ROS: 13:40 Constitutional: Negative for fever, chills, and weight loss, ENT: Negative for injury, kb pain, and discharge, Neck: Negative for injury, pain, and swelling, Cardiovascular: Negative for chest pain, palpitations, and edema, Respiratory: Negative for shortness of breath, cough, wheezing, and pleuritic chest pain, Abdomen/GI: Negative for abdominal pain, nausea, vomiting, diarrhea, and constipation, MS/Extremity: Negative for injury and deformity, Neuro: Negative for headache, weakness, numbness, tingling, and seizure. 13:40 Skin: Positive for abscess, of the left labia majora. Exam: 13:40 Constitutional: This is a well developed, well nourished patient who is awake, alert, kb and in no acute distress. Head/Face: Normocephalic, atraumatic. Neck: Trachea midline, no thyromegaly or masses palpated, and no cervical lymphadenopathy. Supple, full range of motion without nuchal rigidity, or vertebral point tenderness. No Meningismus. Chest/axilla: Normal chest wall appearance and motion. Nontender with no deformity. No lesions are appreciated. Cardiovascular: Regular rate and rhythm with a normal S1 and S2. No gallops, murmurs, or rubs. Normal PMI, no JVD. No pulse deficits. Respiratory: Lungs have equal breath sounds bilaterally, clear to auscultation and percussion. No rales, rhonchi or wheezes noted. No increased work of breathing, no retractions or nasal flaring. Abdomen/GI: Soft, non-tender, with normal bowel sounds. No distension or tympany. No guarding or rebound. No evidence of tenderness throughout. MS/ Extremity: Pulses equal, no cyanosis. Neurovascular intact. Full, normal range of motion. Neuro: Awake and alert, GCS 15, oriented to person, place, time, and situation. Cranial nerves II-XII grossly intact. Motor strength 5/5 in all extremities. Sensory grossly intact. Cerebellar exam normal. Normal gait. 13:40 Skin: abscess, that is small, of the left labia majora, with induration. Vital Signs: 13:26 BP 125 / 76; Pulse 110; Resp 18; Temp 98.3(O); Pulse Ox 100% ; Weight 77.11 kg (R); sr5 Height 5 ft. 2 in. (157.48 cm); Pain 10/10; 13:26 Body Mass Index 31.09 (77.11 kg, 157.48 cm) sr5 MDM: 13:29 Patient medically screened. kb 13:40 Data reviewed: vital signs, nurses notes. Data interpreted: Pulse oximetry: on room air kb is 100 %. Interpretation: normal. Counseling: I had a detailed discussion with the patient and/or guardian regarding: the historical points, exam findings, and any diagnostic results supporting the discharge/admit diagnosis, the need for outpatient follow up, an OB/Gyne specialist, to return to the emergency department if symptoms worsen or persist or if there are any questions or concerns that arise at home. ED course: No areas of fluctuance noted. Pt elected not to have incision made at this time, would rather try PO antibiotics first. . 08/23 13:46 Order name: Urine Dipstick--Ancillary (enter results) eb 08/23 13:46 Order name: Urine --Ancillary (enter results) eb Administered Medications: 13:49 Drug: Bactrim (160 mg-800 mg (DS) 1 tablet Route: PO; ca1 13:49 Follow up: Response: Medication administered at discharge. ca1 Disposition: 17:40 Co-signature as Attending Physician, Arnold Nunez MD. rn Disposition: 08/23/19 13:43 Discharged to Home. Impression: Cutaneous abscess of other sites - left labia majora. - Condition is Stable. - Discharge Instructions: Skin Abscess, [id number]. - Prescriptions for Bactrim DS 800- 160 mg Oral Tablet - take 1 tablet by ORAL route every 12 hours for 10 days; 20 tablet. - Medication Reconciliation Form, Thank You Letter, Antibiotic Education, Prescription Opioid Use form. - Follow up: Emergency Department; When: As needed; Reason: Worsening of condition. Follow up: Private Physician; When: 2 - 3 days; Reason: Recheck today's complaints, Continuance of care, Re-evaluation by your physician. Signatures: Dispatcher [employer] EDDodie Linares, COW TRIMMER-C COW TRIMMER-Ckb Arnold Nunez MD MD rn ReseckJackson mcmillan RN RN sr5 Eryn Snyder RN RN ca1 Corrections: (The following items were deleted from the chart) 13:50 13:43 08/23/2019 13:43 Discharged to Home. Impression: Cutaneous abscess of other sites ca1 - left labia majora. Condition is Stable. Forms are Medication Reconciliation Form, Thank You Letter, Antibiotic Education, Prescription Opioid Use. Follow up: Emergency Department; When: As needed; Reason: Worsening of condition. Follow up: Private Physician; When: 2 - 3 days; Reason: Recheck today's complaints, Continuance of care, Re-evaluation by your physician. kb
[2019-08-23] MEDS ORDERED: SMZ./TMP. 800/160 MG TABLET ONE (13:50)
[2019-08-23 14:06] VITALS: BP 125/76; TEMP 98.3; O2SAT 100
[2019-08-23 14:11] LABS: Urine Blood NEGATIVE (NEG); Urine Glucose NEGATIVE (NEG); Urine Protein NEGATIVE (NEG)
== END 2019-08-23 13:50 | disposition home or self-care (01) ==
LOC: ER 13:12
DX: N76.4 Abscess of vulva (principal); F17.210 Nicotine dependence, cigarettes, uncomplicated
CPT/HCPCS: 81003; 81025; 99284

== ENCOUNTER 2019-09-02 13:38 | Emergency (ER) | payer SELFPAY ==
--- OUTSIDE RECORDS SUMMARY | 2019-09-02 13:40 | XMS REPORT ---
:1995 [facility] Address [address] [place] [address] [address] [place] [id number] Care Team Providers Name Role Phone Unavailable Unavailable Unavailable Problems This patient has no known problems. Allergies, Adverse Reactions, Alerts This patient has no known allergies or adverse reactions. Medications This patient has no known medications.
--- NOTE | 2019-09-02 14:54 | ER ---
Nurse's Notes [facility] Name: Lilia Nunez Age: 24 yrs Sex: Female : 1995 Arrival Date: 09/02/2019 Time: 13:41 Bed 11 Private MD: Diagnosis: Influenza due to certain identified influenza viruses Presentation: 09/02 14:12 Presenting complaint: Patient states: Cough, congestion 4 days ago. Fever on and off. ca1 Sore throat 2 days ago. Transition of care: patient was not received from another setting of care. Onset of symptoms was September 02, 2019. Risk Assessment: Do you want to hurt yourself or someone else? Patient reports no desire to harm self or others. Initial Sepsis Screen: Does the patient meet any 2 criteria? No. Patient's initial sepsis screen is negative. Does the patient have a suspected source of infection? No. Patient's initial sepsis screen is negative. Care prior to arrival: None. 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 - Social history:: Smoking status: Patient uses tobacco products, smokes one-half pack cigarettes per day. - Ebola Screening: : Patient negative for fever greater than or equal to 101.5 degrees Fahrenheit, and additional compatible Ebola Virus Disease symptoms Patient denies exposure to infectious person Patient denies travel to an Ebola-affected area in the 21 days before illness onset No symptoms or risks identified at this time. Screenin:36 Abuse screen: Denies threats or abuse. Denies injuries from another. Nutritional ca1 screening: No deficits noted. Tuberculosis screening: No symptoms or risk factors identified. Fall Risk None identified. Assessment: 14:36 General: Appears in no apparent distress. comfortable, Behavior is calm, cooperative, ca1 appropriate for age. Pain: Complains of pain in throat Pain currently is 7 out of 10 on a pain scale. Neuro: Level of Consciousness is awake, alert, obeys commands, Oriented to person, place, time, situation. Cardiovascular: Heart tones S1 S2 present Capillary refill < 3 seconds Patient's skin is warm and dry. Respiratory: Reports cough that is Airway is patent Respiratory effort is even, unlabored, Respiratory pattern is regular, symmetrical, Breath sounds are clear bilaterally. EENT: Reports nasal congestion. Derm: Skin is intact, is healthy with good turgor, Skin is pink, warm \T\ dry. Musculoskeletal: Circulation, motion, and sensation intact. Capillary refill < 3 seconds, Range of motion: intact in all extremities. Vital Signs: 14:14 BP 124 / 83; Pulse 99; Resp 18 S; Temp 99.1(O); Pulse Ox 100% on R/A; Weight 72.57 kg ca1 (R); Height 5 ft. 2 in. (157.48 cm) (R); Pain 8/10; 14:14 Body Mass Index 29.26 (72.57 kg, 157.48 cm) ca1 ED Course: 13:41 Patient arrived in ED. mr 14:13 Triage completed. ca1 14:14 Arm band placed on right wrist. ca1 14:35 Eryn Snyder RN is Primary Nurse. ca1 14:35 Jadiel Roth PA is PHCP. jr8 14:35 Misha Muñoz MD is Attending Physician. jr8 14:36 Patient has correct armband on for positive identification. Bed in low position. Call ca1 light in reach. Side rails up X 1. Pulse ox on. NIBP on. 14:36 No provider procedures requiring assistance completed. Patient did not have IV access ca1 during this emergency room visit. Administered Medications: 15:00 Drug: Decadron 10 mg Route: IM; Site: right deltoid; ss 15:10 Follow up: Response: No adverse reaction; Medication administered at discharge. ss Outcome: 14:53 Discharge ordered by . jr8 15:10 Discharged to home ambulatory. ss 15:10 Condition: good 15:10 Discharge instructions given to patient, family, Instructed on discharge instructions, follow up and referral plans. medication usage, Demonstrated understanding of instructions, follow-up care, medications, Prescriptions given X 1. 15:10 Patient left the ED. ss Signatures: Nicole Noland Shelby, RN RN Jadiel Roth PA PA 8 Acob, Eryn, RN RN ca1
--- NOTE | 2019-09-02 14:54 | EDPHYS ---
Physician Documentation [facility] Name: Lilia Nunez Age: 24 yrs Sex: Female : 1995 Arrival Date: 09/02/2019 Time: 13:41 Bed 11 Private MD: ED Physician Misha Muñoz HPI: 09/02 14:57 This 24 yrs old Female presents to ER via Ambulatory with complaints of Flu jr8 Symptoms. 14:57 The patient reports fever, not measured (subjective). Onset: The symptoms/episode jr8 began/occurred gradually, 4 day(s) ago. Modifying factors: The patient has had contact with sick daughter. Associated signs and symptoms: Pertinent positives: chills, cough, runny nose, sinus congestion, sore throat. Severity of symptoms: At their worst the symptoms were mild in the emergency department the symptoms are unchanged. The patient has not experienced similar symptoms in the past. The patient has not recently seen a physician. Stated that her child was diagnosed with influenza last week. Started having similar symptoms 4 days ago but still feels weak. Now having sore throat . 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 - Social history:: Smoking status: Patient uses tobacco products, smokes one-half pack cigarettes per day. - Ebola Screening: : Patient negative for fever greater than or equal to 101.5 degrees Fahrenheit, and additional compatible Ebola Virus Disease symptoms Patient denies exposure to infectious person Patient denies travel to an Ebola-affected area in the 21 days before illness onset No symptoms or risks identified at this time. ROS: 14:57 Eyes: Negative for injury, pain, redness, and discharge, Neck: Negative for injury, jr8 pain, and swelling, Cardiovascular: Negative for chest pain, palpitations, and edema, Abdomen/GI: Negative for abdominal pain, nausea, vomiting, diarrhea, and constipation, Back: Negative for injury and pain, MS/Extremity: Negative for injury and deformity, Skin: Negative for injury, rash, and discoloration, Neuro: Negative for headache, weakness, numbness, tingling, and seizure. 14:57 Constitutional: Positive for body aches, chills, fatigue, fever. 14:57 ENT: Positive for rhinorrhea, sinus congestion, sore throat. 14:57 Respiratory: Positive for cough, Negative for dyspnea on exertion, shortness of breath, sputum production, wheezing. Exam: 14:57 Eyes: Pupils equal round and reactive to light, extra-ocular motions intact. Lids and jr8 lashes normal. Conjunctiva and sclera are non-icteric and not injected. Cornea within normal limits. Periorbital areas with no swelling, redness, or edema. ENT: Nares patent. No nasal discharge, no septal abnormalities noted. Tympanic membranes are normal and external auditory canals are clear. Oropharynx with no redness, swelling, or masses, exudates, or evidence of obstruction, uvula midline. Mucous membranes moist. Neck: Trachea midline, no thyromegaly or masses palpated, and no cervical lymphadenopathy. Supple, full range of motion without nuchal rigidity, or vertebral point tenderness. No Meningismus. Cardiovascular: Regular rate and rhythm with a normal S1 and S2. No gallops, murmurs, or rubs. Normal PMI, no JVD. No pulse deficits. Respiratory: Lungs have equal breath sounds bilaterally, clear to auscultation and percussion. No rales, rhonchi or wheezes noted. No increased work of breathing, no retractions or nasal flaring. Abdomen/GI: Soft, non-tender, with normal bowel sounds. No distension or tympany. No guarding or rebound. No evidence of tenderness throughout. Back: No spinal tenderness. No costovertebral tenderness. Full range of motion. Skin: Warm, dry with normal turgor. Normal color with no rashes, no lesions, and no evidence of cellulitis. MS/ Extremity: Pulses equal, no cyanosis. Neurovascular intact. Full, normal range of motion. Neuro: Awake and alert, GCS 15, oriented to person, place, time, and situation. Cranial nerves II-XII grossly intact. Motor strength 5/5 in all extremities. Sensory grossly intact. Cerebellar exam normal. Normal gait. Vital Signs: 14:14 BP 124 / 83; Pulse 99; Resp 18 S; Temp 99.1(O); Pulse Ox 100% on R/A; Weight 72.57 kg ca1 (R); Height 5 ft. 2 in. (157.48 cm) (R); Pain 8/10; 14:14 Body Mass Index 29.26 (72.57 kg, 157.48 cm) ca1 MDM: 14:35 Patient medically screened. jr8 14:52 Data reviewed: vital signs, nurses notes, lab test result(s), Flu: positive and as a jr8 result, I will discharge patient. Data interpreted: Pulse oximetry: on room air is 100 %. Interpretation: normal. Counseling: I had a detailed discussion with the patient and/or guardian regarding: the historical points, exam findings, and any diagnostic results supporting the discharge/admit diagnosis, lab results, the need for outpatient follow up, a family practitioner, to return to the emergency department if symptoms worsen or persist or if there are any questions or concerns that arise at home. 09/02 14:16 Order name: Flu; Complete Time: 14:52 ca1 09/02 14:16 Order name: Strep; Complete Time: 14:52 ca1 09/02 14:51 Order name: Throat Culture EDMS Administered Medications: 15:00 Drug: Decadron 10 mg Route: IM; Site: right deltoid; 15:10 Follow up: Response: No adverse reaction; Medication administered at discharge. Disposition: 09/03 07:31 Co-signature as Attending Physician, Misha Muñoz MD I agree with the assessment and jacek plan of care. Disposition: 09/02/19 14:53 Discharged to Home. Impression: Influenza due to certain identified influenza viruses. - Condition is Stable. - Discharge Instructions: Influenza, Adult. - Prescriptions for Tessalon Perles 100 mg Oral Capsule - take 1 capsule by ORAL route every 8 hours As needed; 15 capsule. - Work release form, Medication Reconciliation Form, Thank You Letter, Antibiotic Education, Prescription Opioid Use form. - Follow up: Private Physician; When: 2 - 3 days; Reason: Recheck today's complaints, Continuance of care, Re-evaluation by your physician. - Problem is new. - Symptoms have improved. Signatures: Dispatcher [employer] EDMS Misha Muñoz MD MD cha Smirch, Shelby, RN RN Jadiel Roth PA PA jr8 Eryn Snyder RN RN ca1 Corrections: (The following items were deleted from the chart) 09/02 15:10 14:53 09/02/2019 14:53 Discharged to Home. Impression: Influenza due to certain ss identified influenza viruses. Condition is Stable. Forms are Medication Reconciliation Form, Thank You Letter, Antibiotic Education, Prescription Opioid Use. Follow up: Private Physician; When: 2 - 3 days; Reason: Recheck today's complaints, Continuance of care, Re-evaluation by your physician. Problem is new. Symptoms have improved. jr8
[2019-09-02] MEDS ORDERED: dexAMETHasone 10 MG/ML VIAL ONE (14:59)
[2019-09-02 15:24] VITALS: BP 124/83; TEMP 99.1; O2SAT 100
== END 2019-09-02 15:10 | disposition home or self-care (01) ==
LOC: ER 13:38
DX: J10.1 Influenza due to other identified influenza virus with other respiratory manifestations (principal); F17.210 Nicotine dependence, cigarettes, uncomplicated
CPT/HCPCS: 87070; 87081; 87804; 96372; 99283; J1100

== ENCOUNTER 2019-12-22 20:28 | Emergency (ER) | payer SELFPAY ==
--- OUTSIDE RECORDS SUMMARY | 2019-12-22 20:30 | XMS REPORT ---
:1995 Author Organization [facility] t Address [address] [place] [address] [address] [place] [address] Care Team Providers Name Role Phone Unavailable Unavailable Unavailable Problems This patient has no known problems. Allergies, Adverse Reactions, Alerts This patient has no known allergies or adverse reactions. Medications This patient has no known medications.
[2019-12-22] MEDS ORDERED: NA CHLORIDE 0.9% 1,000 ML ONE (20:54)
[2019-12-22 21:05] LABS: Absolute Lymphocytes (CBC) 2.4 K/uL (0.7-4.9); Basophils % 0.5 % (0-1.3); Hematocrit 39.6 % (36.0-45.0); Lymphocytes % 33.7 % (15.3-44.8); MPV 7.4 fL (7.6-11.3); RBC Red Blood Cell Count 4.36 M/uL (3.86-4.86)
[2019-12-22 21:12] LABS: Urine Amorphous Sediment 3+ /HPF (NONE SEEN); Urine Bacteria >50 /HPF (<20); Urine Culture Reflex Order REFLEXED; Urine Mucus 2+ /HPF (NONE SEEN); Urine RBC <5 /HPF (NONE SEEN)
[2019-12-22 21:13] LABS: Urine Blood NEGATIVE (NEG); Urine Glucose NEGATIVE (NEG); Urine Protein NEGATIVE (NEG); Urine Specific Gravity 1.025 (1.005-1.030); Urine pH 7.5 (5.0-7.0)
[2019-12-22 21:23] LABS: ALT/SGPT 22 U/L (12-78); AST/SGOT 14 U/L (15-37); Albumin 3.6 g/dL (3.4-5.0); Alkaline Phosphatase 89 U/L (45-117); BUN Blood Urea Nitrogen 12 mg/dL (7-18); Bicarbonate 28 mmol/L (21-32); Bilirubin Direct < 0.1 mg/dL (0-0.2); Bilirubin Total 0.1 mg/dL (0.2-1.0); Glucose Level 88 mg/dL (74-106); Lipase 91 U/L (73-393); Potassium 3.9 mmol/L (3.5-5.1); Protein, Total 7.4 g/dL (6.4-8.2); Sodium Level 144 mmol/L (136-145)
[2019-12-22] MEDS ORDERED: CEFTRIAXONE/SWI 1gm 1 GM/10 ML SYR ONE (21:36)
--- NOTE | 2019-12-22 21:52 | RAD REPORT ---
EXAM DESCRIPTION: CT - Abdomen Pelvis W Contrast - 12/22/2019 9:40 pm CLINICAL HISTORY: Abdominal pain COMPARISON: 2017 TECHNIQUE: Computed axial tomography of the abdomen pelvis was obtained. 100 cc Isovue-300 was admin istered intravenously. Oral contrast was not requested which limits evaluation of bowel. All CT scans are performed using dose optimization technique as appropriate and may include automated exposure control or mA/KV adjustment according to patient size. FINDINGS: The liver, spleen, pancreas, adrenal and kidneys appear unremarkable. There is no evidence of diverticulitis. Normal appendix 2 centimeter right ovarian cyst without significant free fluid IMPRESSION: 2 centimeter right ovarian cyst without significant free fluid
--- NOTE | 2019-12-22 22:03 | EDPHYS ---
Physician Documentation [facility] Name: Lilia Nunez Age: 24 yrs Sex: Female : 1995 Arrival Date: 12/22/2019 Time: 20:[address] Private MD: ED Physician Terry Santoyo HPI: 12/21 20:39 This 24 yrs old Female presents to ER via Ambulatory with complaints of cp Abdominal Pain. 20:40 The patient presents with abdominal pain in the periumbilical area. cp 20:40 Onset: The symptoms/episode began/occurred 2 week(s) ago. cp 20:40 The symptoms do not radiate. Associated signs and symptoms: Pertinent negatives: nausea cp and vomiting, anorexia, chest pain, constipation, diarrhea, dysuria, fever. 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 - Social history:: Smoking status: Patient reports the use of cigarette tobacco products, smokes two packs cigarettes per day. Patient/guardian denies using alcohol, street drugs. ROS: 20:45 Constitutional: Negative for body aches, chills, fever, poor PO intake. cp 20:45 Eyes: Negative for injury, pain, redness, and discharge. cp Exam: 21:00 Constitutional: The patient appears in no acute distress, alert, awake, non-toxic, well cp developed, well nourished. 21:00 Head/Face: Normocephalic, atraumatic. cp 21:00 Eyes: Periorbital structures: appear normal, Conjunctiva: normal, no exudate, no injection, Sclera: no appreciated abnormality, Lids and lashes: appear normal, bilaterally. 21:00 ENT: External ear(s): are unremarkable, Nose: is normal, Mouth: is normal, Posterior pharynx: is normal, airway is patent, no erythema, no exudate. 21:00 Chest/axilla: Inspection: normal, Palpation: is normal, no crepitus, no tenderness. 21:00 Cardiovascular: Rate: tachycardic, Rhythm: regular. 21:00 Respiratory: the patient does not display signs of respiratory distress, Respirations: normal, no use of accessory muscles, labored breathing, is not present, Breath sounds: are clear throughout, no decreased breath sounds. 21:00 Abdomen/GI: Inspection: abdomen appears normal, Bowel sounds: active, all quadrants, Palpation: soft, in all quadrants, mild abdominal tenderness, in the umbilical area, rebound tenderness, is not appreciated, voluntary guarding, is not appreciated, involuntary guarding, is not appreciated. 21:00 Back: CVA tenderness, is absent. Vital Signs: 20:37 BP 140 / 94; Pulse 104; Resp 18; Temp 98.2; Pulse Ox 99% ; Pain 10/10; ll1 21:17 BP 124 / 84; Pulse 92; Resp 16; Pulse Ox 100% ; rr5 22:14 BP 120 / 86; Pulse 85; Resp 16; Temp 98.2; Pulse Ox 99% on R/A; rr5 MDM: 20:38 Patient medically screened. cp 22:01 Data reviewed: vital signs, nurses notes, lab test result(s), radiologic studies, CT cp scan, and as a result, I will discharge patient. 12/21 20:39 Order name: Basic Metabolic Panel; Complete Time: 21:23 cp 12/21 21:23 Interpretation: Normal except: CL 109; GFR 80. cp 12/21 20:39 Order name: CBC with Diff; Complete Time: 21:23 cp 12/21 21:24 Interpretation: Normal except: MCV 90.8; MPV 7.4. cp 12/21 20:39 Order name: Creatinine for Radiology; Complete Time: 21:59 cp 12/21 21:59 Interpretation: Within normal limits. cp 12/21 20:39 Order name: Hepatic Function; Complete Time: 21:24 cp 12/21 21:24 Interpretation: Normal except: AST 14; BILIT 0.1; GLOB 3.8; A/G 0.9. cp 12/21 20:39 Order name: Lipase; Complete Time: 21:59 cp 12/21 21:59 Interpretation: Within normal limits. cp 12/21 20:39 Order name: Urine Microscopic Only; Complete Time: 21:23 cp 12/21 21:24 Interpretation: Normal except: UWBC 5-10; UBACT >50; AMORPH 3+. cp 12/21 20:39 Order name: Urine Dipstick-Ancillary (obtain specimen); Complete Time: 21:03 cp 12/21 20:39 Order name: IV Saline Lock; Complete Time: 21:03 cp 12/21 21:11 Order name: Urine Dipstick--Ancillary (enter results); Complete Time: 21:23 mw2 12/21 22:00 Interpretation: Normal except: UPH 7.5; UESTR TRACE. cp 12/21 21:11 Order name: Urine --Ancillary (enter results); Complete Time: 21:23 mw2 12/21 21:13 Order name: Urine Culture EDSD 12/21 21:25 Order name: CT Abd/Pelvis - IV Contrast Only; Complete Time: 21:59 cp 12/21 20:39 Order name: Labs collected and sent; Complete Time: 21:03 cp 12/21 20:39 Order name: Urine Test (obtain specimen); Complete Time: 21:03 cp Administered Medications: 21:03 Drug: NS 0.9% 1000 ml Route: IV; Rate: 1 bolus; Site: right antecubital; jb4 22:15 Follow up: Response: No adverse reaction; IV Status: Completed infusion; IV Intake: rr5 1000ml 21:34 Drug: Rocephin 1 grams Route: IV; Rate: calculated rate; Site: right antecubital; rr5 22:05 Follow up: Response: No adverse reaction; IV Status: Completed infusion; IV Intake: [id number] Disposition: 23:07 Co-signature as Attending Physician, Terry Santoyo MD. pkl Disposition: 12/22/19 22:02 Discharged to Home. Impression: Urinary tract infection, site not specified, Unspecified abdominal pain. - Condition is Stable. - Discharge Instructions: Abdominal Pain, Adult, Urinary Tract Infection, Adult. - Prescriptions for Bactrim DS 800- 160 mg Oral Tablet - take 1 tablet by ORAL route every 12 hours for 7 days; 14 tablet. - Medication Reconciliation Form, Thank You Letter, Antibiotic Education, Prescription Opioid Use form. - Follow up: Private Physician; When: 2 - 3 days; Reason: Recheck today's complaints. - Problem is new. - Symptoms have improved. Signatures: [facility] Terry Sant[facility] MD MD pkl Misha Umaña PA PA cp Bryson, James, RN RN jb4 Hal Masters RN RN rr5 Estefany Yanes RN RN ll1 Corrections: (The following items were deleted from the chart) 22:16 22:02 12/22/2019 22:02 Discharged to Home. Impression: Urinary tract infection, site rr5 not specified; Unspecified abdominal pain. Condition is Stable. Forms are Medication Reconciliation Form, Thank You Letter, Antibiotic Education, Prescription Opioid Use. Follow up: Private Physician; When: 2 - 3 days; Reason: Recheck today's complaints. Problem is new. Symptoms have improved. cp
--- NOTE | 2019-12-22 22:03 | ER ---
Nurse's Notes [facility] Name: Lilia Nunez Age: 24 yrs Sex: Female : 1995 Arrival Date: 12/22/2019 Time: 20:[address] Private MD: Diagnosis: Urinary tract infection, site not specified;Unspecified abdominal pain Presentation: 12/21 20:37 Chief complaint: Patient states: Epigastric pain for 2 weeks. Int. N/V. No fever. ll1 Coronavirus screen: Proceed with normal triage. Patient denies a cough. Patient denies shortness of breath or difficulty breathing. Patient denies measured and/or subjective temperature greater than 100.4F prior to today's visit. Patient denies travel on a cruise ship or to a country the [facility] currently lists as an affected area. Patient denies contact with known and/or suspected case of COVID-19. Ebola Screen: Patient denies travel to an Ebola-affected area in the 21 days before illness onset. Initial Sepsis Screen: Does the patient meet any 2 criteria? HR > 90 bpm. No. Patient's initial sepsis screen is negative. Does the patient have a suspected source of infection? No. Patient's initial sepsis screen is negative. Risk Assessment: Do you want to hurt yourself or someone else? Patient reports no desire to harm self or others. Onset of symptoms was December 08, 2019. 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 - Social history:: Smoking status: Patient reports the use of cigarette tobacco products, smokes two packs cigarettes per day. Patient/guardian denies using alcohol, street drugs. Screenin:04 Abuse screen: Denies threats or abuse. Denies injuries from another. Nutritional rr5 screening: No deficits noted. Tuberculosis screening: No symptoms or risk factors identified. Fall Risk IV access (20 points). Total Reynolds Fall Scale indicates No Risk (0-24 pts). Assessment: 20:40 General: Appears in no apparent distress. comfortable, Behavior is calm, cooperative, rr5 appropriate for age. Pain: Complains of pain in abdomen Pain does not radiate. Pain currently is 10 out of 10 on a pain scale. Quality of pain is described as aching, Pain began gradually, Is intermittent. Neuro: Level of Consciousness is awake, alert, obeys commands, Oriented to person, place, time, situation, Appropriate for age. Cardiovascular: Capillary refill < 3 seconds Patient's skin is warm and dry. Respiratory: Airway is patent Respiratory effort is even, unlabored, Respiratory pattern is regular, symmetrical. GI: Abdomen is round non-distended, Bowel sounds present X 4 quads. Abd is soft and non tender X 4 quads. Reports lower abdominal pain, upper abdominal pain, nausea, vomiting. : No signs and/or symptoms were reported regarding the genitourinary system. EENT: No signs and/or symptoms were reported regarding the EENT system. Derm: Skin is intact, is healthy with good turgor, Skin temperature is warm. Musculoskeletal: Circulation, motion, and sensation intact. Capillary refill < 3 seconds. 21:30 Reassessment: Patient appears in no apparent distress at this time. No changes from rr5 previously documented assessment. Patient is alert, oriented x 3, equal unlabored respirations, skin warm/dry/pink. awaiting for results. 22:14 Reassessment: Patient appears in no apparent distress at this time. Patient is alert, rr5 oriented x 3, equal unlabored respirations, skin warm/dry/pink. discharge instruction given and explained without complaints made. Vital Signs: 20:37 BP 140 / 94; Pulse 104; Resp 18; Temp 98.2; Pulse Ox 99% ; Pain 10/10; ll1 21:17 BP 124 / 84; Pulse 92; Resp 16; Pulse Ox 100% ; rr5 22:14 BP 120 / 86; Pulse 85; Resp 16; Temp 98.2; Pulse Ox 99% on R/A; rr5 ED Course: 20:31 Patient arrived in ED. ag3 20:32 Misha Umaña PA is PHCP. cp 20:32 Terry Santoyo MD is Attending Physician. cp 20:39 Triage completed. ll1 20:39 Arm band placed on Patient placed in an exam room, on a stretcher. ll1 20:47 Masters, Hal, RN is Primary Nurse. rr5 20:50 No provider procedures requiring assistance completed. Inserted saline lock: 20 gauge rr5 in right antecubital area, using aseptic technique. Blood collected. 21:06 Patient has correct armband on for positive identification. Bed in low position. Call rr5 light in reach. Pulse ox on. NIBP on. 21:40 CT Abd/Pelvis - IV Contrast Only In Process Unspecified. EDMS 21:49 CT completed. Patient tolerated procedure well. Patient moved back from CT. mw3 22:14 IV discontinued, intact, bleeding controlled, No redness/swelling at site. Pressure rr5 dressing applied. Administered Medications: 21:03 Drug: NS 0.9% 1000 ml Route: IV; Rate: 1 bolus; Site: right antecubital; jb4 22:15 Follow up: Response: No adverse reaction; IV Status: Completed infusion; IV Intake: rr5 1000ml 21:34 Drug: Rocephin 1 grams Route: IV; Rate: calculated rate; Site: right antecubital; rr5 22:05 Follow up: Response: No adverse reaction; IV Status: Completed infusion; IV Intake: [id number] Intake: 22:05 IV: 10ml; Total: 10ml. rr5 22:15 IV: 1000ml; Total: 1010ml. rr5 Outcome: 22:02 Discharge ordered by . cp 22:14 Discharged to home ambulatory. rr5 22:14 Condition: stable 22:14 Discharge instructions given to patient, Instructed on discharge instructions, follow up and referral plans. medication usage, Demonstrated understanding of instructions, follow-up care, medications, Prescriptions given X 1. 22:16 Patient left the ED. rr5 Signatures: Dispatcher [employer] EDMS Misha Umaña PA PA cp Bryson, James RN RN jb4 Lashaun Kc mw3 Lexus Greer 3 Hal Masters, RN RN rr5 Estefany Yanes RN RN ll1
[2019-12-22 22:41] VITALS: TEMP 98.2
[2019-12-22 22:44] VITALS: BP 120/86; O2SAT 99
== END 2019-12-22 22:16 | disposition home or self-care (01) ==
LOC: ER 20:28
DX: N39.0 Urinary tract infection, site not specified (principal); F17.210 Nicotine dependence, cigarettes, uncomplicated
CPT/HCPCS: 36415; 74177; 80048; 80076; 81003; 81015; 81025; 83690; 85025; 87086; 87088; 96361; 96365; 99284; J0696; J7030; Q9967

== ENCOUNTER 2020-03-01 14:20 | Emergency (ER) | payer SELFPAY ==
--- OUTSIDE RECORDS SUMMARY | 2020-03-01 14:22 | XMS REPORT | Continuity of Care Document ---
:1995 Author Organization [facility] t Address [address] [place] [address] [address] [place] [address] Care Team Providers Name Role Phone Unavailable Unavailable Unavailable Problems This patient has no known problems. Allergies, Adverse Reactions, Alerts This patient has no known allergies or adverse reactions. Medications This patient has no known medications. Procedures This patient has no known procedures. Results This patient has no known results.
--- NOTE | 2020-03-01 16:05 | EDPHYS ---
Physician Documentation [facility] Name: Lilia Nunez Age: 24 yrs Sex: Female : 1995 Arrival Date: 03/01/2020 Time: 14:24 Bed 17 Private MD: ED Physician Maria C Hernández HPI: 03/01 15:12 This 24 yrs old Female presents to ER via Ambulatory with complaints of kb Vaginal Pain, Vaginal Discharge, STD Exposure. 15:12 The patient presents with urinary symptoms, dysuria, vaginal discharge, that is a kb moderate amount of yellow discharge, white discharge, patient has had similar discharge in the past. Onset: The symptoms/episode began/occurred 1 month(s) ago. Modifying factors: The symptoms are alleviated by nothing, the symptoms are aggravated by urinating, wiping. Associated signs and symptoms: Pertinent positives: dysuria, vaginal discharge. Severity of symptoms: At their worst the symptoms were moderate, in the emergency department the symptoms are unchanged. The patient has experienced similar episodes in the past. The patient has not recently seen a physician. "My baby daddy said I gave him an STD and I know I got it from my ex-boyfriend. I know it's a STD because I've had them before." Pt reports pain to genital area with urination and wiping. Reports yellow/white vaginal discharge. Reports this has been going on for approx 1 month. Sexual partner tested positive for trichomoniasis. . 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 - Social history:: Smoking status: Patient reports the use of cigarette tobacco products, smokes one pack cigarettes per day. ROS: 15:11 Constitutional: Negative for fever, chills, and weight loss, Cardiovascular: Negative kb for chest pain, palpitations, and edema, Respiratory: Negative for shortness of breath, cough, wheezing, and pleuritic chest pain, Abdomen/GI: Negative for abdominal pain, nausea, vomiting, diarrhea, and constipation, MS/Extremity: Negative for injury and deformity, Skin: Negative for injury, rash, and discoloration, Neuro: Negative for headache, weakness, numbness, tingling, and seizure. 15:11 : Positive for burning with urination, vaginal discharge, vaginal itching. Exam: 15:11 Constitutional: This is a well developed, well nourished patient who is awake, alert, kb and in no acute distress. Head/Face: Normocephalic, atraumatic. Chest/axilla: Normal chest wall appearance and motion. Nontender with no deformity. No lesions are appreciated. Cardiovascular: Regular rate and rhythm with a normal S1 and S2. No gallops, murmurs, or rubs. Normal PMI, no JVD. No pulse deficits. Respiratory: Lungs have equal breath sounds bilaterally, clear to auscultation and percussion. No rales, rhonchi or wheezes noted. No increased work of breathing, no retractions or nasal flaring. Abdomen/GI: Soft, non-tender, with normal bowel sounds. No distension or tympany. No guarding or rebound. No evidence of tenderness throughout. Skin: Warm, dry with normal turgor. Normal color with no rashes, no lesions, and no evidence of cellulitis. MS/ Extremity: Pulses equal, no cyanosis. Neurovascular intact. Full, normal range of motion. Neuro: Awake and alert, GCS 15, oriented to person, place, time, and situation. Cranial nerves II-XII grossly intact. Motor strength 5/5 in all extremities. Sensory grossly intact. Cerebellar exam normal. Normal gait. Vital Signs: 15:07 BP 131 / 85; Pulse 79; Resp 17; Temp 98.0(O); Pulse Ox 98% on R/A; Weight 86.18 kg; vc Height 5 ft. 2 in. (157.48 cm); Pain 8/10; 15:07 Body Mass Index 34.75 (86.18 kg, 157.48 cm) vc MDM: 15:00 Patient medically screened. kb 15:11 Data reviewed: vital signs, nurses notes. Data interpreted: Pulse oximetry: on room air kb is 98 %. Interpretation: normal. 15:12 Counseling: I had a detailed discussion with the patient and/or guardian regarding: the kb historical points, exam findings, and any diagnostic results supporting the discharge/admit diagnosis, lab results, the need for outpatient follow up, an OB/Gyne specialist, to return to the emergency department if symptoms worsen or persist or if there are any questions or concerns that arise at home. 03/01 15:10 Order name: Urine Microscopic Only; Complete Time: 16:41 kb 03/01 16:05 Order name: Urine Dipstick--Ancillary (enter results); Complete Time: 16:17 em1 03/01 16:05 Order name: Urine --Ancillary (enter results); Complete Time: 16:17 em1 03/01 16:36 Order name: Urine Culture [facility] 03/01 15:10 Order name: Urine Test (obtain specimen); Complete Time: 16:03 kb 03/01 15:10 Order name: Urine Dipstick-Ancillary (obtain specimen); Complete Time: 16:03 kb Administered Medications: 16:30 Drug: Rocephin (cefTRIAXone) 250 mg Route: IM; Site: right gluteus; dm5 16:55 Follow up: Response: No adverse reaction vc 16:30 Drug: Zithromax 1 grams Route: PO; dm5 16:55 Follow up: Response: No adverse reaction vc 16:30 Drug: Flagyl 2 grams Route: PO; dm5 16:55 Follow up: Response: No adverse reaction vc Disposition: 18:32 Co-signature as Attending Physician, Maria C Hernández MD. ma2 Disposition: 03/01/20 16:04 Discharged to Home. Impression: Unspecified sexually transmitted disease. - Condition is Stable. - Discharge Instructions: Sexually Transmitted Disease, [id number]. - Medication Reconciliation Form, Thank You Letter, Antibiotic Education, Prescription Opioid Use form. - Follow up: Emergency Department; When: As needed; Reason: Worsening of condition. Follow up: Private Physician; When: 2 - 3 days; Reason: Recheck today's complaints, Continuance of care, Re-evaluation by your physician. Signatures: Dispatcher [employer] EDDodie Linares FNP-C FNP-Ckb Markwardt, Deana, RN RN Maria C Man MD MD ma2 Ruba Mills RN RN vc Corrections: (The following items were deleted from the chart) 16:47 16:04 03/01/2020 16:04 Discharged to Home. Impression: Unspecified sexually transmitted vc disease. Condition is Stable. Forms are Medication Reconciliation Form, Thank You Letter, Antibiotic Education, Prescription Opioid Use. Follow up: Emergency Department; When: As needed; Reason: Worsening of condition. Follow up: Private Physician; When: 2 - 3 days; Reason: Recheck today's complaints, Continuance of care, Re-evaluation by your physician. kb
--- NOTE | 2020-03-01 16:05 | ER ---
Nurse's Notes [facility] Name: Lilia Nunez Age: 24 yrs Sex: Female : 1995 Arrival Date: 03/01/2020 Time: 14:24 Bed 17 Private MD: Diagnosis: Unspecified sexually transmitted disease Presentation: 03/01 15:07 Chief complaint: Patient states: "I HAD SEX WITH MY BABY KEVIN A FEW DAYS AGO AND HE vc CALLED ME TODAY SAYING I NEEDED TO GET CHECKED OUT BECAUSE HE TESTED POSITIVE FOR TRICHOMONIASIS. I THOUGHT I HAD A YEAST INFECTION. IT HURTS WHEN I PEE OR WIPE, I'M DISCHARGING, AND THERE IS AN ODOR.". Coronavirus screen: Proceed with normal triage. Patient denies a cough. Patient denies shortness of breath or difficulty breathing. Patient denies measured and/or subjective temperature greater than 100.4F prior to today's visit. Patient denies travel on a cruise ship or to a country the [facility] currently lists as an affected area. Patient denies contact with known and/or suspected case of COVID-19. Ebola Screen: No symptoms or risks identified at this time. Initial Sepsis Screen: Does the patient meet any 2 criteria? No. Patient's initial sepsis screen is negative. Does the patient have a suspected source of infection? Yes: Dysuria/Frequency/Urgency/UTI. Risk Assessment: Do you want to hurt yourself or someone else? Patient reports no desire to harm self or others. Onset of symptoms is unknown. Care prior to arrival: TAKING MONISTAT FOR 3 WEEKS. 15:07 Method Of Arrival: Ambulatory vc 15:07 Acuity: TERRY 4 vc Triage Assessment: 15:11 General: Appears in no apparent distress. uncomfortable, Behavior is calm, cooperative, vc appropriate for age. Pain: Complains of pain in WHILE PEEING OR WIPING Pain does not radiate. Pain currently is 8 out of 10 on a pain scale. Quality of pain is described as burning. 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 - Social history:: Smoking status: Patient reports the use of cigarette tobacco products, smokes one pack cigarettes per day. Screenin:11 Abuse screen: Denies threats or abuse. Nutritional screening: No deficits noted. vc Tuberculosis screening: No symptoms or risk factors identified. Fall Risk None identified. Assessment: 15:00 General: Behavior is cooperative, anxious. Pain: Complains of pain in burrows with vc urination and wiping. 15:00 Neuro: Level of Consciousness is awake, alert, obeys commands, Oriented to person, vc place, time, situation, Appropriate for age. Cardiovascular: Capillary refill < 3 seconds Patient's skin is warm and dry. Respiratory: Airway is patent Respiratory effort is even, unlabored, Respiratory pattern is regular, symmetrical. GI: No signs and/or symptoms were reported involving the gastrointestinal system. : Reports burning with urination, discharge, from vagina that is malodorous, white, pain with urination. Derm: No signs and/or symptoms reported regarding the dermatologic system. Derm: No signs and/or symptoms reported regarding the dermatologic system. 16:00 Reassessment: Patient appears in no apparent distress at this time. Patient and/or vc family updated on plan of care and expected duration. Pain level reassessed. Patient is alert, oriented x 3, equal unlabored respirations, skin warm/dry/pink. Patient states symptoms have not improved. Vital Signs: 15:07 BP 131 / 85; Pulse 79; Resp 17; Temp 98.0(O); Pulse Ox 98% on R/A; Weight 86.18 kg; vc Height 5 ft. 2 in. (157.48 cm); Pain 8/10; 15:07 Body Mass Index 34.75 (86.18 kg, 157.48 cm) vc ED Course: 14:24 Patient arrived in ED. mr 14:57 Ruba Mills RN is Primary Nurse. vc 15:00 Dodie Bruce FNP-C is PHCP. kb 15:00 Maria C Hernández MD is Attending Physician. kb 15:00 Arm band placed on. vc 15:00 Patient has correct armband on for positive identification. vc 15:00 Pulse ox on. NIBP on. vc 15:10 Triage completed. vc 16:45 No provider procedures requiring assistance completed. Patient did not have IV access vc during this emergency room visit. Administered Medications: 16:30 Drug: Rocephin (cefTRIAXone) 250 mg Route: IM; Site: right gluteus; dm5 16:55 Follow up: Response: No adverse reaction vc 16:30 Drug: Zithromax 1 grams Route: PO; dm5 16:55 Follow up: Response: No adverse reaction vc 16:30 Drug: Flagyl 2 grams Route: PO; dm5 16:55 Follow up: Response: No adverse reaction vc Outcome: 16:04 Discharge ordered by . karel 16:45 Discharged to home ambulatory. vc 16:45 Condition: good 16:45 Discharge instructions given to patient, Instructed on discharge instructions, follow up and referral plans. Demonstrated understanding of instructions, follow-up care. 16:47 Patient left the ED. vc Signatures: Dodie Bruce, DIRECTOR OF OPERATIONS HOME HEALTH-C DIRECTOR OF OPERATIONS HOME HEALTH-Sasha Gamboa RN RN [email or web address] Nicole Noland Vanessa, RN RN vc
[2020-03-01 16:14] LABS: Urine Blood TRACE (NEG); Urine Glucose NEGATIVE (NEG); Urine Protein NEGATIVE (NEG); Urine Specific Gravity >1.030 (1.005-1.030)
[2020-03-01] MEDS ORDERED: AZITHROMYCIN 250 MG TAB ONE (16:23)
[2020-03-01] MEDS ORDERED: metroNIDAZOLE 500 MG TABLET ONE (16:23)
[2020-03-01] MEDS ORDERED: LIDOCAINE 1% MPF 2 ML AMPULE ONE (16:24)
[2020-03-01] MEDS ORDERED: CEFTRIAXONE 250 MG/VIAL ONE (16:24)
[2020-03-01] MEDS ORDERED: WATER FOR INJ,STERILE 10 ML ONE (16:27)
[2020-03-01 16:33] LABS: Urine Mucus SLIGHT /HPF (NONE SEEN)
[2020-03-01 16:34] LABS: Urine Bacteria 20-50 /HPF (<20); Urine Culture Reflex Order REFLEXED; Urine RBC <5 /HPF (NONE SEEN)
[2020-03-01 16:53] VITALS: BP 131/85; TEMP 98; O2SAT 98
== END 2020-03-01 16:47 | disposition home or self-care (01) ==
LOC: ER 14:20
DX: A64 Unspecified sexually transmitted disease (principal)
CPT/HCPCS: 81003; 81015; 81025; 87086; 87088; 96372; 99283; J0696; J2001

== ENCOUNTER 2020-05-10 19:16 | Emergency (ER) | payer SELFPAY ==
--- OUTSIDE RECORDS SUMMARY | 2020-05-10 19:18 | XMS REPORT | Continuity of Care Document ---
:1995 Author Organization [facility] t Address [address] [place] [address] [address] [place] [address] Care Team Providers Name Role Phone Unavailable Unavailable Unavailable Problems This patient has no known problems. Allergies, Adverse Reactions, Alerts This patient has no known allergies or adverse reactions. Medications This patient has no known medications. Procedures This patient has no known procedures. Results This patient has no known results.
--- NOTE | 2020-05-10 19:51 | EDPHYS ---
Physician Documentation [facility] Name: Lilia Nunez Age: 25 yrs Sex: Female : 1995 Arrival Date: 05/10/2020 Time: 19:18 Bed 25 Private MD: ED Physician Arnold Nunez HPI: 05/10 19:48 This 25 yrs old Female presents to ER via Ambulatory with complaints of rn Toothache. 19:48 The patient presents with pain. The problem is located in the left upper posterior. rn Onset: The symptoms/episode began/occurred today. Duration: The symptoms are continuous. Modifying factors: The symptoms are alleviated by nothing, the symptoms are aggravated by chewing. Severity of symptoms: At their worst the symptoms were mild, in the emergency department the symptoms are unchanged. The patient has experienced similar episodes in the past. The patient has not recently seen a physician. 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 - Social history:: Smoking status: Patient reports the use of cigarette tobacco products, smokes one-half pack cigarettes per day, Patient uses alcohol, but reports only rare drinking. Patient/guardian denies using street drugs. - Family history:: not pertinent. - Hospitalizations: : No recent hospitalization is reported. ROS: 19:48 Constitutional: Negative for fever, chills, and weight loss, Eyes: Negative for injury, rn pain, redness, and discharge, ENT: + dental pain, no swelling or drainage Neck: Negative for injury, pain, and swelling. Exam: 19:48 Constitutional: This is a well developed, well nourished patient who is awake, alert, rn and in no acute distress. ENT: No focal swelling/drainage/redness, + mild tenderness alond left upper/posterior gums, no dental injury, no sinus pressure or tenderness Vital Signs: 19:27 BP 130 / 71; Pulse 73; Resp 17; Temp 98.7; Pulse Ox 100% ; Pain 10/10; ll1 MDM: 19:35 Patient medically screened. rn 19:48 Differential diagnosis: dental caries, gingivitis, dental abscess. Data reviewed: vital rn signs, nurses notes, and as a result, I will discharge patient. Counseling: I had a detailed discussion with the patient and/or guardian regarding: the historical points, exam findings, and any diagnostic results supporting the discharge/admit diagnosis, the need for outpatient follow up, to return to the emergency department if symptoms worsen or persist or if there are any questions or concerns that arise at home. Special discussion: I discussed with the patient/guardian in detail that at this point there is no indication for admission to the hospital. It is understood, however, that if the symptoms persist or worsen the patient needs to return immediately for re-evaluation. Based on the history and exam findings, there is no indication for further emergent testing or inpatient evaluation. I discussed with the patient/guardian the need to see a dentist for further evaluation of the symptoms. Administered Medications: 20:14 Drug: [place] 5 mg-325 mg 1 tabs Route: PO; ll1 20:36 Follow up: Response: No adverse reaction; Pain is decreased; RASS: Alert and Calm (0) ll1 20:14 Drug: Motrin 800 mg Route: PO; ll1 20:36 Follow up: Response: No adverse reaction; Pain is decreased; RASS: Alert and Calm (0) ll1 20:14 Drug: Clindamycin 300 mg Route: PO; ll1 20:36 Follow up: Response: No adverse reaction; RASS: Alert and Calm (0) ll1 Disposition: 05/10/20 19:50 Discharged to Home. Impression: Dental pain. - Condition is Stable. - Discharge Instructions: Dental Pain. - Prescriptions for Clindamycin HCl 300 mg Oral Capsule - take 1 capsule by ORAL route every 6 hours for 10 days; 40 capsule. - Medication Reconciliation Form, Thank You Letter, Antibiotic Education, Prescription Opioid Use, Work release form form. - Follow up: Private Physician; When: As needed; Reason: Recheck today's complaints, Re-evaluation by your physician. - Problem is new. - Symptoms are unchanged. Signatures: Ryan Brunson RN RN sg Arnold Nunez MD MD rn Lewis, Lynsay, RN RN ll1 Corrections: (The following items were deleted from the chart) 20:18 19:50 05/10/2020 19:50 Discharged to Home. Impression: Dental pain. Condition is sg Stable. Forms are Medication Reconciliation Form, Thank You Letter, Antibiotic Education, Prescription Opioid Use. Follow up: Private Physician; When: As needed; Reason: Recheck today's complaints, Re-evaluation by your physician. Problem is new. Symptoms are unchanged. rn
--- NOTE | 2020-05-10 19:51 | ER ---
Nurse's Notes [facility] Name: Lilia Nunez Age: 25 yrs Sex: Female : 1995 Arrival Date: 05/10/2020 Time: 19:18 Bed 25 Private MD: Diagnosis: Dental pain Presentation: 05/10 19:27 Chief complaint: Patient states: Left upper jaw dental pain since yesterday. No fever. ll1 Unable to get to a dentist. Coronavirus screen: Client denies travel out of the [place] in the last 14 days. At this time, the client does not indicate any symptoms associated with coronavirus-19. Ebola Screen: Patient denies travel to an Ebola-affected area in the 21 days before illness onset. Initial Sepsis Screen: Does the patient meet any 2 criteria? No. Patient's initial sepsis screen is negative. Risk Assessment: Do you want to hurt yourself or someone else? Patient reports no desire to harm self or others. Onset of symptoms was May 09, 2020. 19:27 Method Of Arrival: Ambulatory [facility] 19:27 Acuity: TERRY 4 ll1 20:00 Initial Sepsis Screen: Does the patient have a suspected source of infection? Yes: ll1 Other: dental pain. Triage Assessment: 20:10 General: Appears uncomfortable, Behavior is calm, cooperative. ll1 20:35 EENT: Reports pain in L upper jaw. 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 - Social history:: Smoking status: Patient reports the use of cigarette tobacco products, smokes one-half pack cigarettes per day, Patient uses alcohol, but reports only rare drinking. Patient/guardian denies using street drugs. - Family history:: not pertinent. - Hospitalizations: : No recent hospitalization is reported. Screenin:10 Abuse screen: Denies threats or abuse. Nutritional screening: No deficits noted. ll1 Tuberculosis screening: No symptoms or risk factors identified. Fall Risk None identified. Total Reynolds Fall Scale indicates No Risk (0-24 pts). Assessment: 20:10 Pain: Complains of pain in L upper jaw Pain currently is 10 out of 10 on a pain scale. ll1 Quality of pain is described as aching, throbbing, Pain began 1 day ago. Is continuous. Neuro: No deficits noted. Cardiovascular: No deficits noted. Respiratory: No deficits noted. GI: Abdomen is flat, Bowel sounds present X 4 quads. Abd is soft and non tender X 4 quads. Reports nausea. EENT: Oral mucosa is moist. Reports pain in L upper jaw. Vital Signs: 19:27 BP 130 / 71; Pulse 73; Resp 17; Temp 98.7; Pulse Ox 100% ; Pain 10/10; ll1 ED Course: 19:18 Patient arrived in ED. mr 19:28 Triage completed. ll1 19:29 Arm band placed on. ll1 19:35 Arnold Nunez MD is Attending Physician. rn 20:06 Ryan Brunson RN is Primary Nurse. sg 20:10 Patient has correct armband on for positive identification. Bed in low position. Call ll1 light in reach. Side rails up X 1. 20:10 No provider procedures requiring assistance completed. Patient did not have IV access ll1 during this emergency room visit. Administered Medications: 20:14 Drug: [place] 5 mg-325 mg 1 tabs Route: PO; ll1 20:36 Follow up: Response: No adverse reaction; Pain is decreased; RASS: Alert and Calm (0) ll1 20:14 Drug: Motrin 800 mg Route: PO; ll1 20:36 Follow up: Response: No adverse reaction; Pain is decreased; RASS: Alert and Calm (0) ll1 20:14 Drug: Clindamycin 300 mg Route: PO; ll1 20:36 Follow up: Response: No adverse reaction; RASS: Alert and Calm (0) ll1 Outcome: 19:50 Discharge ordered by . rn 20:18 Patient left the ED. sg 20:18 Discharged to home ambulatory. ll1 20:18 Condition: stable 20:18 Discharge instructions given to patient, Instructed on discharge instructions, follow up and referral plans. medication usage, Demonstrated understanding of instructions, follow-up care, medications, Prescriptions given X 1. Signatures: Ryan Brunson RN RN sg Nicole Noland Arnold Nunez MD MD rn Lewis, Lynsay, RN RN [facility]
[2020-05-10] MEDS ORDERED: IBUPROFEN 400 MG TAB ONE (20:19)
[2020-05-10] MEDS ORDERED: HYDROCODONE/APAP 5/325 MG TAB ONE (20:19)
[2020-05-10 20:54] VITALS: BP 130/71; TEMP 98.7; O2SAT 100
== END 2020-05-10 20:18 | disposition home or self-care (01) ==
LOC: ER 19:16
DX: K08.89 Other specified disorders of teeth and supporting structures (principal); F17.210 Nicotine dependence, cigarettes, uncomplicated
CPT/HCPCS: 99283

== ENCOUNTER 2020-09-22 19:09 | Emergency (ER) | payer SELFPAY ==
--- OUTSIDE RECORDS SUMMARY | 2020-09-22 19:11 | XMS REPORT | Continuity of Care Document ---
:1995 Author Organization [facility] t Address [address] [place] [address] Care Team Providers Name Role Phone José Miguel CHAVIRA Attending Clinician Problems This patient has no known problems. Allergies, Adverse Reactions, Alerts This patient has no known allergies or adverse reactions. Medications This patient has no known medications. Procedures This patient has no known procedures. Encounters Start End Encounter Admission Attending Care Care Encounter Source Date/Time Date/Time Type Type Clinicians Facility Department ID 2020-06-16 2020-06-16 Josefa Valdez [facility] [id number] 15:24:00 17:00:00 Caity Dalton [id number] [place] [id number] [place] [id number] Results This patient has no known results.
[2020-09-22 20:41] LABS: Urine Blood 1+ (NEG); Urine Glucose NEGATIVE (NEG); Urine Protein NEGATIVE (NEG); Urine Specific Gravity >1.030 (1.005-1.030)
[2020-09-22 22:03] LABS: Urine Bacteria 20-50 /HPF (<20)
[2020-09-22 22:04] LABS: Urine Mucus 3+ /HPF (NONE SEEN)
--- NOTE | 2020-09-22 22:46 | EDPHYS ---
Physician Documentation [facility] Name: Lilia Nunez Age: 25 yrs Sex: Female : 1995 Arrival Date: 09/22/2020 Time: 19:10 Bed 28 Private MD: ED Physician Evens Pitt HPI: 09/22 22:41 This 25 yrs old Female presents to ER via Ambulatory with complaints of ps1 Vaginal Pain. 22:41 patient states that she had unprotected sex with her ex. He reportedly cheated on her ps1 but she had GC/ trich which was treated and now she has it again. Requesting treatment. Has green discharge with dysuria. 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 - Social history:: Smoking status: Patient reports the use of cigarette tobacco products, smokes one-half pack cigarettes per day, Patient uses alcohol, occasionally. Patient/guardian denies using street drugs. ROS: 22:41 Constitutional: Negative for fever, chills, and weight loss, Eyes: Negative for injury, ps1 pain, redness, and discharge, Cardiovascular: Negative for chest pain, palpitations, and edema, Respiratory: Negative for shortness of breath, cough, wheezing, and pleuritic chest pain, Abdomen/GI: Negative for abdominal pain, nausea, vomiting, diarrhea, and constipation. 22:41 Neuro: Negative for headache, weakness, numbness, tingling, and seizure, Psych: Negative for depression, anxiety, suicide ideation, homicidal ideation, and hallucinations. 22:41 : Positive for burning with urination, vaginal discharge. Exam: 22:41 Constitutional: This is a well developed, well nourished patient who is awake, alert, ps1 and in no acute distress. Head/Face: Normocephalic, atraumatic. Eyes: Pupils equal round and reactive to light, extra-ocular motions intact. Lids and lashes normal. Conjunctiva and sclera are non-icteric and not injected. Cardiovascular: Regular rate and rhythm. No gallops, murmurs, or rubs. Normal PMI, no JVD. No pulse deficits. Respiratory: Lungs have equal breath sounds bilaterally, clear to auscultation and percussion. No rales, rhonchi or wheezes noted. No increased work of breathing, no retractions or nasal flaring. Abdomen/GI: Soft, non-tender, with normal bowel sounds. No distension or tympany. No guarding or rebound. No evidence of tenderness throughout. 22:41 : deferred. No abdominal pain. . Vital Signs: 19:44 BP 122 / 79; Pulse 90; Resp 16; Temp 98.7; Pulse Ox 99% ; Weight 90.72 kg; Height 5 ft. rr5 2 in. (157.48 cm); Pain 8/10; 19:44 Body Mass Index 36.58 (90.72 kg, 157.48 cm) rr5 MDM: 22:35 Patient medically screened. ps1 09/22 20:07 Order name: Urine Dipstick--Ancillary (enter results); Complete Time: 22:40 mw2 09/22 20:07 Order name: Urine --Ancillary (enter results); Complete Time: 22:40 mw2 09/22 20:08 Order name: Urine Microscopic Only kb 09/22 20:09 Order name: Urine Microscopic Only; Complete Time: 22:40 EDPR 09/22 22:05 Order name: Urine Culture [facility] 09/22 19:47 Order name: Urine Test (obtain specimen); Complete Time: 21:56 kb 09/22 19:47 Order name: Urine Dipstick-Ancillary (obtain specimen); Complete Time: 21:56 kb Administered Medications: 22:56 Drug: Rocephin (cefTRIAXone) 500 mg Route: IM; Site: right deltoid; em 22:57 Drug: AZITHromycin 1 grams Route: PO; em 22:57 Drug: Flagyl 2 grams Route: PO; em Disposition: 09/22/20 22:46 Discharged to Home. Impression: Encounter for STI treatment, Vaginal discharge, Acute cystitis without hematuria. - Condition is Stable. - Discharge Instructions: Sexually Transmitted Disease, Urinary Tract Infection, Adult. - Prescriptions for Doxycycline Hyclate 100 mg Oral Tablet - take 1 tablet by ORAL route every 12 hours; 20 tablet. - Medication Reconciliation Form, Thank You Letter, Antibiotic Education, Prescription Opioid Use form. - Follow up: Private Physician; When: Tomorrow; Reason: Recheck today's complaints, Continuance of care, Re-evaluation by your physician. Follow up: Emergency Department; When: As needed; Reason: Fever > 102 F, Worsening of condition. - Problem is new. - Symptoms are unchanged. Signatures: Dispatcher [employer] EDDodie Linares, TELEPHONE SERVICE REPRESENTATIVE-C TELEPHONE SERVICE REPRESENTATIVE-Ckb Cl Garcia, RN RN em Marilyn Lovett RN RN iw Evens Pitt MD MD ps1 Hal Masters RN RN rr5 Corrections: (The following items were deleted from the chart) 22:46 22:46 09/22/2020 22:46 Discharged to Home. Impression: Encounter for STI treatment; ps1 Vaginal discharge. Condition is Stable. Forms are Medication Reconciliation Form, Thank You Letter, Antibiotic Education, Prescription Opioid Use. Follow up: Private Physician; When: Tomorrow; Reason: Recheck today's complaints, Continuance of care, Re-evaluation by your physician. Follow up: Emergency Department; When: As needed; Reason: Fever > 102 F, Worsening of condition. Problem is new. Symptoms are unchanged. ps1 23:19 22:46 09/22/2020 22:46 Discharged to Home. Impression: Encounter for STI treatment; iw Vaginal discharge; Acute cystitis without hematuria. Condition is Stable. Forms are Medication Reconciliation Form, Thank You Letter, Antibiotic Education, Prescription Opioid Use. Follow up: Private Physician; When: Tomorrow; Reason: Recheck today's complaints, Continuance of care, Re-evaluation by your physician. Follow up: Emergency Department; When: As needed; Reason: Fever > 102 F, Worsening of condition. Problem is new. Symptoms are unchanged. ps1
--- NOTE | 2020-09-22 22:46 | ER ---
Nurse's Notes [facility] Name: Lilia Nunez Age: 25 yrs Sex: Female : 1995 Arrival Date: 09/22/2020 Time: 19:10 Bed 28 Private MD: Diagnosis: Encounter for STI treatment;Vaginal discharge;Acute cystitis without hematuria Presentation: 09/22 19:44 Chief complaint: Patient states: vaginal pain started this weekend, it hurts when i pee rr5 and having discharge. Coronavirus screen: Client denies travel out of the [place] in the last 14 days. At this time, the client does not indicate any symptoms associated with coronavirus-19. Ebola Screen: Patient negative for fever greater than or equal to 101.5 degrees Fahrenheit, and additional compatible Ebola Virus Disease symptoms Patient denies exposure to infectious person. Patient denies travel to an Ebola-affected area in the 21 days before illness onset. Initial Sepsis Screen: Does the patient meet any 2 criteria? No. Patient's initial sepsis screen is negative. Does the patient have a suspected source of infection? Yes: Dysuria/Frequency/Urgency/UTI. Risk Assessment: Do you want to hurt yourself or someone else? Patient reports no desire to harm self or others. Onset of symptoms was September 19, 2020. 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 - Social history:: Smoking status: Patient reports the use of cigarette tobacco products, smokes one-half pack cigarettes per day, Patient uses alcohol, occasionally. Patient/guardian denies using street drugs. Screenin:15 Abuse screen: Denies threats or abuse. Nutritional screening: No deficits noted. em Tuberculosis screening: No symptoms or risk factors identified. Fall Risk None identified. Assessment: 20:30 General: Appears in no apparent distress. comfortable, Behavior is calm, cooperative, em appropriate for age, Denies fever. Pain: Complains of pain in pelvis. Neuro: Level of Consciousness is awake, alert, obeys commands, Oriented to person, place, time, situation, Appropriate for age. Cardiovascular: Capillary refill < 3 seconds Patient's skin is warm and dry. Respiratory: Airway is patent Respiratory effort is even, unlabored, Respiratory pattern is regular, symmetrical. : Reports burning with urination, discharge. Derm: Skin is intact, is healthy with good turgor, Skin is pink, warm \T\ dry. Musculoskeletal: Capillary refill < 3 seconds, Range of motion: intact in all extremities. 23:15 Reassessment: pt refused GC probe and wet prep, states she just wants her meds and iw wants to go home. Vital Signs: 19:44 BP 122 / 79; Pulse 90; Resp 16; Temp 98.7; Pulse Ox 99% ; Weight 90.72 kg; Height 5 ft. rr5 2 in. (157.48 cm); Pain 8/10; 19:44 Body Mass Index 36.58 (90.72 kg, 157.48 cm) rr5 ED Course: 19:10 Patient arrived in ED. cf2 19:45 Urine collected: clean catch specimen, clear. rr5 19:46 Triage completed. rr5 19:48 Arm band placed on right wrist. rr5 21:43 Cl Garcia, RN is Primary Nurse. em 21:54 Evens Pitt MD is Attending Physician. ps1 22:15 Patient has correct armband on for positive identification. Bed in low position. Call em light in reach. Adult w/ patient. 23:18 No provider procedures requiring assistance completed. Patient did not have IV access iw during this emergency room visit. Administered Medications: 22:56 Drug: Rocephin (cefTRIAXone) 500 mg Route: IM; Site: right deltoid; em 22:57 Drug: AZITHromycin 1 grams Route: PO; em 22:57 Drug: Flagyl 2 grams Route: PO; em Outcome: 22:46 Discharge ordered by . ps1 23:18 Discharged to home ambulatory. iw 23:18 Condition: good 23:18 Discharge instructions given to patient, Instructed on discharge instructions, follow up and referral plans. medication usage, Demonstrated understanding of instructions, follow-up care, medications, Prescriptions given X 1. 23:19 Patient left the ED. iw Addendum: 09/26/2020 20:19 Addendum: Culture Results: Positive urine culture. Bacteria is resistant to, has d m5 intermediate sensitivity, or is not tested against prescribed antibiotics. 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 Prescription called-in to pharmacy of choice. Augmentin 875 mg 1 tab PO BID for 7 days called in by ks for BILL [facility]bert to [facility]. Signatures: Sasha Aiken, LYNETTE RN dm5 Cl Garcia RN RN em Williams, Irene, RN RN iw Singer, Phillip, MD MD ps1 Hal Masters RN RN rr5 Boris, Derek 2
[2020-09-22] MEDS ORDERED: AZITHROMYCIN 250 MG TAB ONE (23:01)
[2020-09-22] MEDS ORDERED: metroNIDAZOLE 500 MG TABLET ONE (23:01)
[2020-09-22] MEDS ORDERED: CEFTRIAXONE 500 MG/VIAL ONE (23:01)
[2020-09-22] MEDS ORDERED: LIDOCAINE 1% MPF 2 ML AMPULE ONE (23:01)
[2020-09-22 23:23] VITALS: BP 122/79; TEMP 98.7; O2SAT 99
== END 2020-09-22 23:19 | disposition home or self-care (01) ==
LOC: ER 19:09
DX: N30.00 Acute cystitis without hematuria (principal); A64 Unspecified sexually transmitted disease; J45.909 Unspecified asthma, uncomplicated; F17.210 Nicotine dependence, cigarettes, uncomplicated
CPT/HCPCS: 81003; 81015; 81025; 87077; 87086; 87088; 87186; 96372; 99283; J0696; J2001

== ENCOUNTER 2020-10-24 17:13 | Emergency (ER) | payer SELFPAY ==
--- OUTSIDE RECORDS SUMMARY | 2020-10-24 17:50 | XMS REPORT | Continuity of Care Document ---
:1995 Author Organization [facility] t Address [address] [place] [address] Care Team Providers Name Role Phone José [...] Facility Department ID 2020-06-16 2020-06-16 Josefa Valdez DCP[facility] [id number] 15:24:00 17:00:00 Caity Dalton [id number] [place] [id number] [place] [phone] Results This patient has no known results.
[2020-10-24 19:45] LABS: Absolute Lymphocytes (CBC) 2.8 K/uL (0.7-4.9); Basophils % 0.4 % (0-1.3); Hematocrit 39.8 % (36.0-45.0); Lymphocytes % 38.4 % (15.3-44.8); MPV 7.7 fL (7.6-11.3)
[2020-10-24 20:02] LABS: ALT/SGPT 23 U/L (12-78); AST/SGOT 12 U/L (15-37); Albumin 3.9 g/dL (3.4-5.0); Alkaline Phosphatase 87 U/L (45-117); BUN Blood Urea Nitrogen 9 mg/dL (7-18); Bicarbonate 28 mmol/L (21-32); Bilirubin Direct < 0.1 mg/dL (0-0.2); Bilirubin Total 0.3 mg/dL (0.2-1.0); Glucose Level 87 mg/dL (74-106); Lipase 63 U/L (73-393); Potassium 3.6 mmol/L (3.5-5.1); Protein, Total 7.7 g/dL (6.4-8.2); Sodium Level 141 mmol/L (136-145)
--- NOTE | 2020-10-24 20:24 | EDPHYS ---
Physician Documentation [facility] Name: Lilia Nunez Age: 25 yrs Sex: Female : 1995 Arrival Date: 10/24/2020 Time: 17:18 Bed 20 Private MD: ED Physician Blaze Quiñones HPI: 10/24 19:46 This 25 yrs old Female presents to ER via Ambulatory with complaints of kb Diarrhea, Nausea. 19:46 The patient presents to the emergency department with nausea, vomiting, diarrhea. kb Onset: The symptoms/episode began/occurred yesterday. Possible causes: unknown. The symptoms are aggravated by nothing. The symptoms are alleviated by nothing. Associated signs and symptoms: Pertinent positives: diarrhea, nausea, vomiting. Severity of symptoms: At their worst the symptoms were moderate in the emergency department the symptoms are unchanged. The patient has not experienced similar symptoms in the past. The patient has not recently seen a physician. Pt reports n/v/d since yesterday. Denies fever. Historical: - Allergies: 17:40 No Known Drug Allergies; ll1 - PMHx: 17:40 Asthma; ll1 - PSHx: 17:40 None; ll1 - Immunization history:: Flu vaccine is not up to date. - Social history:: Smoking status: Patient reports the use of cigarette tobacco products, smokes one-half pack cigarettes per day. ROS: 19:46 Constitutional: Negative for fever, chills, and weight loss, Cardiovascular: Negative kb for chest pain, palpitations, and edema, Respiratory: Negative for shortness of breath, cough, wheezing, and pleuritic chest pain, MS/Extremity: Negative for injury and deformity, Skin: Negative for injury, rash, and discoloration, Neuro: Negative for headache, weakness, numbness, tingling, and seizure. 19:46 Abdomen/GI: Positive for nausea, vomiting, and diarrhea, abdominal cramps. Exam: 20:23 Constitutional: This is a well developed, well nourished patient who is awake, alert, kb and in no acute distress. Head/Face: Normocephalic, atraumatic. Cardiovascular: Regular rate and rhythm with a normal S1 and S2. No gallops, murmurs, or rubs. Normal PMI, no JVD. No pulse deficits. Respiratory: Lungs have equal breath sounds bilaterally, clear to auscultation and percussion. No rales, rhonchi or wheezes noted. No increased work of breathing, no retractions or nasal flaring. Abdomen/GI: Soft, non-tender, with normal bowel sounds. No distension or tympany. No guarding or rebound. No evidence of tenderness throughout. Skin: Warm, dry with normal turgor. Normal color with no rashes, no lesions, and no evidence of cellulitis. MS/ Extremity: Pulses equal, no cyanosis. Neurovascular intact. Full, normal range of motion. Neuro: Awake and alert, GCS 15, oriented to person, place, time, and situation. Cranial nerves II-XII grossly intact. Motor strength 5/5 in all extremities. Sensory grossly intact. Cerebellar exam normal. Normal gait. Vital Signs: 17:41 BP 118 / 93; Pulse 75; Resp 17; Temp 97.9; Pulse Ox 99% ; Weight 86.18 kg; Height 5 ft. ll1 2 in. (157.48 cm); Pain 10/10; 20:35 BP 120 / 80; Pulse 70; Resp 18; Temp 98; Pulse Ox 98% ; ea 17:41 Body Mass Index 34.75 (86.18 kg, 157.48 cm) ll1 MDM: 18:47 Patient medically screened. kb 20:23 Data reviewed: vital signs, nurses notes. Data interpreted: Pulse oximetry: on room air kb is 99 %. Interpretation: normal. Counseling: I had a detailed discussion with the patient and/or guardian regarding: the historical points, exam findings, and any diagnostic results supporting the discharge/admit diagnosis, lab results, the need for outpatient follow up, a family practitioner, to return to the emergency department if symptoms worsen or persist or if there are any questions or concerns that arise at home. 10/24 19:08 Order name: Basic Metabolic Panel; Complete Time: 20:11 kb 10/24 19:08 Order name: CBC with Diff; Complete Time: 20:11 kb 10/24 19:08 Order name: Hepatic Function; Complete Time: 20:11 kb 10/24 19:08 Order name: Lipase; Complete Time: 20:11 kb 10/24 19:08 Order name: IV Saline Lock; Complete Time: 19:35 kb 10/24 19:08 Order name: Labs collected and sent; Complete Time: 19:35 kb Administered Medications: 20:32 Drug: Zofran (Ondansetron) 4 mg Route: IVP; Site: right antecubital; ea 20:42 Follow up: Response: No adverse reaction ea 20:32 Drug: Bentyl 20 mg Route: PO; ea 20:42 Follow up: Response: No adverse reaction ea Disposition: 10/24/20 20:23 Discharged to Home. Impression: Nausea and vomiting, Diarrhea, unspecified. - Condition is Stable. - Discharge Instructions: Food Choices to Help Relieve Diarrhea, Adult, Viral Gastroenteritis, Adult, [id number], Nausea and Vomiting, Adult, Zpwm-[id number], Diarrhea, Adult, Wabq-mc-Glpy. - Prescriptions for Bentyl 20 mg Oral Tablet - take 1 tablet by ORAL route every 6 hours As needed; 20 tablet. Zofran 4 mg Oral Tablet - take 1 tablet by ORAL route every 6 hours As needed; 20 tablet. - Work release form, Medication Reconciliation Form, Thank You Letter, Antibiotic Education, Prescription Opioid Use form. - Follow up: Emergency Department; When: As needed; Reason: Worsening of condition. Follow up: Private Physician; When: 2 - 3 days; Reason: Recheck today's complaints, Continuance of care, Re-evaluation by your physician. Addendum: 10/27/2020 05:42 Co-signature as Attending Physician, Blaze Quiñones MD I agree with the assessment and k dr plan of care. Signatures: Dispatcher [employer] EDIL Dodie Bruce, PRIMER BOXER-C PRIMER BOXER-Ckb Blaze Quiñones MD MD [facility] Cass Meeks RN RN ea Lewis, Lynsay, RN RN ll1 Corrections: (The following items were deleted from the chart) 10/24 20:42 20:23 10/24/2020 20:23 Discharged to Home. Impression: Nausea and vomiting; Diarrhea, ea unspecified. Condition is Stable. Forms are Medication Reconciliation Form, Thank You Letter, Antibiotic Education, Prescription Opioid Use. Follow up: Emergency Department; When: As needed; Reason: Worsening of condition. Follow up: Private Physician; When: 2 - 3 days; Reason: Recheck today's complaints, Continuance of care, Re-evaluation by your physician. kb
--- NOTE | 2020-10-24 20:24 | ER ---
Nurse's Notes [facility] Name: Lilia Nunez Age: 25 yrs Sex: Female : 1995 Arrival Date: 10/24/2020 Time: 17:18 Bed 20 Private MD: Diagnosis: Nausea and vomiting;Diarrhea, unspecified Presentation: 10/24 17:41 Chief complaint: Patient states: Abd pain with diarrhea and nausea for 2 days. No known ll1 fever. Coronavirus screen: Client denies travel out of the [place] in the last 14 days. At this time, the client does not indicate any symptoms associated with coronavirus-19. Ebola Screen: Patient denies travel to an Ebola-affected area in the 21 days before illness onset. Initial Sepsis Screen: Does the patient meet any 2 criteria? No. Patient's initial sepsis screen is negative. Does the patient have a suspected source of infection? Yes: Acute abdominal pain. Risk Assessment: Do you want to hurt yourself or someone else? Patient reports no desire to harm self or others. Onset of symptoms was October 23, 2020. 17:41 Method Of Arrival: Ambulatory ll1 17:41 Acuity: TERRY 3 ll1 Historical: - Allergies: 17:40 No Known Drug Allergies; ll1 - PMHx: 17:40 Asthma; ll1 - PSHx: 17:40 None; ll1 - Immunization history:: Flu vaccine is not up to date. - Social history:: Smoking status: Patient reports the use of cigarette tobacco products, smokes one-half pack cigarettes per day. Screenin:18 Abuse screen: Denies threats or abuse. Nutritional screening: No deficits noted. ea Tuberculosis screening: No symptoms or risk factors identified. Fall Risk None identified. Assessment: 19:18 General: Appears in no apparent distress. Behavior is calm, cooperative, appropriate ea for age. Pain: Denies pain. Neuro: Level of Consciousness is awake, alert, obeys commands, Oriented to person, place, time, situation. Cardiovascular: Patient's skin is warm and dry. Respiratory: Airway is patent Respiratory effort is even, unlabored, Respiratory pattern is regular, symmetrical. GI: Abdomen is non-distended. Derm: Skin is pink, warm \T\ dry. 20:41 Reassessment: Patient and/or family updated on plan of care and expected duration. Pain ea level reassessed. Patient is alert, oriented x 3, equal unlabored respirations, skin warm/dry/pink. Discharge instruction given to patient, verbalized the understanding of instruction. Pt left ED ambulatory tolerating well. Vital Signs: 17:41 BP 118 / 93; Pulse 75; Resp 17; Temp 97.9; Pulse Ox 99% ; Weight 86.18 kg; Height 5 ft. ll1 2 in. (157.48 cm); Pain 10/10; 20:35 BP 120 / 80; Pulse 70; Resp 18; Temp 98; Pulse Ox 98% ; ea 17:41 Body Mass Index 34.75 (86.18 kg, 157.48 cm) ll1 ED Course: 17:18 Patient arrived in ED. mr 17:40 Arm band placed on. ll1 17:42 Triage completed. ll1 18:47 Dodie Bruce FNP-C is [facility]. kb 18:47 Blaze Quiñones MD is Attending Physician. kb 19:18 Cass Meeks, LYNETTE is Primary Nurse. ea 19:18 Patient has correct armband on for positive identification. Bed in low position. Call ea light in reach. Side rails up X2. 19:30 Inserted saline lock: 20 gauge in right antecubital area, using aseptic technique. ea 20:39 No provider procedures requiring assistance completed. IV discontinued, intact, ea bleeding controlled, No redness/swelling at site. Pressure dressing applied. Administered Medications: 20:32 Drug: Zofran (Ondansetron) 4 mg Route: IVP; Site: right antecubital; ea 20:42 Follow up: Response: No adverse reaction ea 20:32 Drug: Bentyl 20 mg Route: PO; ea 20:42 Follow up: Response: No adverse reaction ea Outcome: 20:23 Discharge ordered by . kb 20:40 Discharged to home ambulatory. ea 20:40 Condition: stable 20:40 Discharge instructions given to patient, Instructed on discharge instructions, follow up and referral plans. medication usage, Demonstrated understanding of instructions, follow-up care, medications, Prescriptions given X 2. 20:42 Patient left the ED. ea Signatures: Dodie Bruce FNP-C FNP-Noris Nicole Noland mr Meeks, Cass, RN RN ea Joaquín, Lynsay, RN RN ll1
[2020-10-24] MEDS ORDERED: ONDANSETRON 4 MG/2 ML VIAL ONE (20:49)
[2020-10-24] MEDS ORDERED: DICYCLOMINE HCL 10 MG CAP ONE (20:49)
[2020-10-24 22:16] VITALS: BP 120/80; TEMP 98; O2SAT 98
== END 2020-10-24 20:42 | disposition home or self-care (01) ==
LOC: ER 17:13
DX: R19.7 Diarrhea, unspecified (principal); F17.210 Nicotine dependence, cigarettes, uncomplicated
CPT/HCPCS: 36415; 80048; 80076; 83690; 85025; 96374; 99283; J2405

== ENCOUNTER 2020-12-08 14:30 | Emergency (ER) | payer SELFPAY ==
--- OUTSIDE RECORDS SUMMARY | 2020-12-08 14:33 | XMS REPORT | Continuity of Care Document ---
:1995 Author Organization [facility] t Address [address] [place] [address] Care Team Providers Name Role Phone José [...] Facility Department ID 2020-06-16 2020-06-16 Josefa Valdez [facility] [id number] 15:24:00 17:00:00 Caity Dalton [id number] [place] [id number] [place] [phone] [id number] Results This patient has no known results.
[2020-12-08 17:17] LABS: Urine Blood Negative (Negative); Urine Glucose Negative (Negative); Urine Protein 1+ (Negative); Urine Specific Gravity 1.015 (1.005-1.030); Urine pH 8.5 (5.0-7.0)
[2020-12-08 17:49] LABS: Urine Specific Gravity/Preg 1.015 (1.005-1.030)
[2020-12-08 17:52] LABS: Absolute Lymphocytes (CBC) 2.1 K/uL (0.7-4.9); Basophils % 0.7 % (0-1.3); Lymphocytes % 23.8 % (15.3-44.8); MPV 7.7 fL (7.6-11.3); RBC Red Blood Cell Count 4.41 M/uL (3.86-4.86)
[2020-12-08 18:09] LABS: ALT/SGPT 21 U/L (12-78); AST/SGOT 10 U/L (15-37); Albumin 3.6 g/dL (3.4-5.0); Alkaline Phosphatase 80 U/L (45-117); BUN Blood Urea Nitrogen 9 mg/dL (7-18); Bicarbonate 29 mmol/L (21-32); Bilirubin Direct < 0.1 mg/dL (0-0.2); Bilirubin Total 0.2 mg/dL (0.2-1.0); Glucose Level 84 mg/dL (74-106); Lipase 61 U/L (73-393); Potassium 4.1 mmol/L (3.5-5.1); Protein, Total 7.1 g/dL (6.4-8.2); Sodium Level 143 mmol/L (136-145)
--- NOTE | 2020-12-08 18:37 | RAD REPORT ---
EXAM DESCRIPTION: CT - Abdomen Pelvis W Contrast - 12/08/2020 6:19 pm CLINICAL HISTORY: abominal pain COMPARISON: Abdomen Pelvis W Contrast dated 12/22/2019; Abdomen Pelvis W Contrast dated 03/07/2018 TECHNIQUE: Biphasic, helical CT imaging of the abdomen and pelvis was performed following 100 ml non -ionic IV contrast. No oral contrast administered. All CT scans are performed using dose optimization technique as appropriate and may include automated exposure control or mA/KV adjustment according to patient size. FINDINGS: No suspicious findings in the lung bases. The liver, spleen, and pancreas show no suspicious findings. Gallbladder is tightly contracted. No bi liary tree dilatation. Symmetric renal function is seen with no hydronephrosis or suspicious renal mass. No pyelonephritis o r acute parenchymal process. No bladder abnormalities. No adrenal abnormalities. No uterine or left ovarian abnormality. Right ovary contains a 4.5 centimeter cyst and a smaller 1.9 centimeter cyst. The larger cyst is somewhat heterogeneous and may have some cellular or hemorrhagic debris. No calcium or fat component. This is probably still functional and can be monitored with a fo llow-up study as warranted. No dilated bowel loops or bowel wall thickening. Appendix is normal. No free air, free fluid or infla mmatory stranding. No hernia, mass or bulky lymphadenopathy. No suspicious bony findings. IMPRESSION: Contrast enhanced CT abdomen and pelvis showing no acute or emergent finding. Patient has a 4.5 centimeter complex right ovarian cyst and smaller adjacent 1.9 centimeter cyst. Lar calvin cyst is probably still functional cyst rather than ovarian mass. This can be monitored on subsequ ent imaging. Correlation is needed to determine if the patient has a pain pattern that may be related to an unruptured right ovarian cyst.
[2020-12-08] MEDS ORDERED: ONDANSETRON 4 MG/2 ML VIAL ONE (19:05)
[2020-12-08] MEDS ORDERED: KETOROLAC 30 MG/ML INJ ONE (19:05)
[2020-12-08] MEDS ORDERED: MORPHINE 4 MG/ML SYR ONE (19:55)
--- NOTE | 2020-12-08 19:55 | ER ---
Nurse's Notes [facility] Name: Lilia Nunez Age: 25 yrs Sex: Female : 1995 Arrival Date: 12/08/2020 Time: 14:31 Bed 17 [facility] MD: Diagnosis: Unspecified ovarian cysts Presentation: 12/08 14:53 Chief complaint: Patient states: Abdominal pain, all over x 4 days. Denies V/D. Reports ca1 a little bit of nausea. Coronavirus screen: Client denies travel out of the [place] in the last 14 days. nausea, Client presents with at least one sign or symptom that may indicate coronavirus-19. Standard/surgical mask placed on the client. Provider contacted for isolation considerations. Ebola Screen: Patient negative for fever greater than or equal to 101.5 degrees Fahrenheit, and additional compatible Ebola Virus Disease symptoms Patient denies exposure to infectious person. Patient denies travel to an Ebola-affected area in the 21 days before illness onset. No symptoms or risks identified at this time. Initial Sepsis Screen: Does the patient meet any 2 criteria? No. Patient's initial sepsis screen is negative. Does the patient have a suspected source of infection? No. Patient's initial sepsis screen is negative. Risk Assessment: Do you want to hurt yourself or someone else? Patient reports no desire to harm self or others. Onset of symptoms was December 08, 2020. 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 - Social history:: Smoking status: Patient reports the use of cigarette tobacco products, smokes one-half pack cigarettes per day. Screenin:52 Abuse screen: Denies threats or abuse. Nutritional screening: No deficits noted. jd3 Tuberculosis screening: No symptoms or risk factors identified. Fall Risk IV access (20 points). Ambulatory Aid- None/Bed Rest/Nurse Assist (0 pts). Gait- Normal/Bed Rest/Wheelchair (0 pts) Mental Status- Oriented to own ability (0 pts). Total Reynolds Fall Scale indicates No Risk (0-24 pts). Assessment: 17:49 General: Appears in no apparent distress. comfortable, Behavior is calm, cooperative, jd3 appropriate for age. Pain: Complains of pain in abdomen Quality of pain is described as aching, tender. Neuro: Level of Consciousness is awake, alert, obeys commands, Oriented to person, place, time, situation. Cardiovascular: Denies chest pain, Capillary refill < 3 seconds Patient's skin is warm and dry. Respiratory: Airway is patent Respiratory effort is even, unlabored, Respiratory pattern is regular, symmetrical, Denies cough, shortness of breath. GI: Abdomen is round non-distended, Abd is soft X 4 quads Abdomen is tender to palpation X 4 quads. Reports lower abdominal pain, upper abdominal pain, nausea. : No signs and/or symptoms were reported regarding the genitourinary system. EENT: No signs and/or symptoms were reported regarding the EENT system. Derm: Skin is intact, Skin is dry, Skin is normal, Skin temperature is warm. Musculoskeletal: Circulation, motion, and sensation intact. Range of motion: intact in all extremities. 18:45 Reassessment: Patient appears in no apparent distress at this time. No changes from jd3 previously documented assessment. Patient and/or family updated on plan of care and expected duration. Pain level reassessed. Patient is alert, oriented x 3, equal unlabored respirations, skin warm/dry/pink. 19:44 General: Appears in no apparent distress. comfortable, Behavior is calm, cooperative, ea appropriate for age. Pain: Complains of pain in abdomen. Neuro: Level of Consciousness is awake, alert, obeys commands, Oriented to person, place, time, situation. Cardiovascular: Patient's skin is warm and dry. Respiratory: Airway is patent Respiratory effort is even, unlabored, Respiratory pattern is regular, symmetrical. Derm: Skin is pink, warm \T\ dry. Vital Signs: 14:53 BP 113 / 77; Pulse 92; Resp 16; Temp 97.7(TE); Pulse Ox 100% on R/A; Weight 86.18 kg ca1 (R); Height 5 ft. 2 in. (157.48 cm) (R); Pain 10/10; 18:30 BP 106 / 76; Pulse 73; Resp 16 S; Pulse Ox 100% on R/A; jd3 20:00 BP 110 / 70; Pulse 68; Resp 18; Temp 98; Pulse Ox 98% on R/A; ea 14:53 Body Mass Index 34.75 (86.18 kg, 157.48 cm) ca1 ED Course: 14:31 Patient arrived in ED. am2 14:54 Triage completed. ca1 14:54 Arm band placed on right wrist. ca1 16:47 Mando Ruiz PA is PHCP. m 16:47 Misha Muñoz MD is Attending Physician. [facility] 16:50 Cameron Holden RN is Primary Nurse. jd3 17:49 Initial lab(s) drawn, by me, sent to lab. Inserted saline lock: 22 gauge in right mh5 antecubital area, using aseptic technique. Blood collected. 17:50 Patient has correct armband on for positive identification. Bed in low position. Call 5 light in reach. Side rails up X 1. Warm blanket given. Pulse ox on. NIBP on. 18:19 CT Abd/Pelvis - IV Contrast Only In Process Unspecified. EDMS 20:06 No provider procedures requiring assistance completed. IV discontinued, intact, ea bleeding controlled, No redness/swelling at site. Pressure dressing applied. Administered Medications: 18:42 CANCELLED (other medication used): morphine 4 mg IVP once; RASS on ADMIN: Combtv4, Very jmm Agttd3, Agttd2, Rstlss1, AlertClm0, Drwsy-1, Lt Sdtn-2, Mod Sdtn-3, Dp Sdtn-4, UnArsble-5 18:51 Drug: Zofran (Ondansetron) 4 mg Route: IVP; Site: right antecubital; jd3 20:08 Follow up: Response: No adverse reaction ea 18:51 Drug: Ketorolac 30 mg Route: IVP; Site: right antecubital; jd3 20:08 Follow up: Response: No adverse reaction ea 19:35 Drug: morphine 4 mg Route: IVP; Site: right antecubital; ea 20:08 Follow up: Response: No adverse reaction ea Outcome: 19:55 Discharge ordered by . jmm 20:06 Discharged to home ambulatory, with family. ea 20:06 Condition: stable 20:06 Discharge instructions given to patient, Instructed on discharge instructions, follow up and referral plans. medication usage, Demonstrated understanding of instructions, follow-up care, medications, Prescriptions given X 1. 20:07 Patient left the ED. oscar Signatures: Dispatcher [employer] EDMS Mando Ruiz PA PA jmm Martinez, Maria 5 Dimitri, Lay lemon2 Cass Meeks RN RN ea Davies, Jonathon, RN RN jd3 Acob, Cheryl, RN RN ca1 Corrections: (The following items were deleted from the chart) 19:01 19:00 BP 106 / 76; Pulse 73bpm; Resp 16bpm; Spontaneous; Pulse Ox 100% RA; anusha tavares
--- NOTE | 2020-12-08 19:56 | EDPHYS ---
Physician Documentation [facility] Name: Lilia Nunez Age: 25 yrs Sex: Female : 1995 Arrival Date: 12/08/2020 Time: 14:31 Bed 17 Private MD: ED Physician Misha Muñoz HPI: 12/08 16:55 This 25 yrs old Female presents to ER via Ambulatory with complaints of jmm Abdominal Pain. 16:55 The patient presents with abdominal pain in the epigastric area, in the lower abdomen. jmm Onset: The symptoms/episode began/occurred gradually, 4 day(s) ago. The symptoms do not radiate. Associated signs and symptoms: Pertinent negatives: fever, vomiting. The symptoms are described as achy. Modifying factors: The symptoms are alleviated by nothing, the symptoms are aggravated by nothing. This is a 25 year old female with a history of asthma that presents to the ED with complaints of epigastric and lower abdominal pain beginning approx 4 days ago. Denies abnormal discharge, patient states LMP 8 weeks ago. Denies vomiting or diarrhea. . 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 - Social history:: Smoking status: Patient reports the use of cigarette tobacco products, smokes one-half pack cigarettes per day. ROS: 16:55 Constitutional: Negative for fever, chills, and weight loss, Cardiovascular: Negative jmm for chest pain, palpitations, and edema, Respiratory: Negative for shortness of breath, cough, wheezing, and pleuritic chest pain. 16:55 Abdomen/GI: Positive for abdominal pain. 16:55 All other systems are negative. Exam: 16:55 Constitutional: This is a well developed, well nourished patient who is awake, alert, jmm and in no acute distress. Head/Face: atraumatic. Eyes: EOMI, no conjunctival erythema appreciated ENT: Moist Mucus Membranes Neck: Trachea midline, Supple Chest/axilla: Normal chest wall appearance and motion. Cardiovascular: Regular rate and rhythm. No edema appreciated Respiratory: Normal respirations, no respiratory distress appreciated 16:55 Back: Normal ROM Skin: General appearance color normal MS/ Extremity: Moves all extremities, no obvious deformities appreciated, no edema noted to the lower extremities Neuro: Awake and alert, normal gait Psych: Behavior is normal, Mood is normal, Patient is cooperative and pleasant 16:55 Abdomen/GI: Inspection: abdomen appears normal, Bowel sounds: normal, Palpation: soft, in all quadrants, nontender, in all quadrants. Vital Signs: 14:53 BP 113 / 77; Pulse 92; Resp 16; Temp 97.7(TE); Pulse Ox 100% on R/A; Weight 86.18 kg ca1 (R); Height 5 ft. 2 in. (157.48 cm) (R); Pain 10/10; 18:30 BP 106 / 76; Pulse 73; Resp 16 S; Pulse Ox 100% on R/A; jd3 20:00 BP 110 / 70; Pulse 68; Resp 18; Temp 98; Pulse Ox 98% on R/A; ea 14:53 Body Mass Index 34.75 (86.18 kg, 157.48 cm) ca1 MDM: 16:55 Patient medically screened. jacek 19:54 Data reviewed: vital signs, nurses notes. Counseling: I had a detailed discussion with carson the patient and/or guardian regarding: the historical points, exam findings, and any diagnostic results supporting the discharge/admit diagnosis, lab results, radiology results, the need for outpatient follow up, to return to the emergency department if symptoms worsen or persist or if there are any questions or concerns that arise at home. ED course: Patient advised to follow up with obgyn for further evaluation. Patient understood and agrees with the plan of care. . 12/08 17:12 Order name: Basic Metabolic Panel; Complete Time: 18:24 [facility] 12/08 17:12 Order name: CBC with Diff; Complete Time: 18:03 [facility] 12/08 17:12 Order name: Hepatic Function; Complete Time: 18:24 [facility] 12/08 17:12 Order name: Lipase; Complete Time: 18:24 [facility] 12/08 17:17 Order name: Urine Dipstick-Ancillary; Complete Time: 17:18 [facility] 12/08 17:22 Order name: Urine --Ancillary (enter results); Complete Time: 18:03 12/08 17:12 Order name: IV Saline Lock; Complete Time: 17:49 [facility] 12/08 17:12 Order name: Labs collected and sent; Complete Time: 17:49 [facility] 12/08 17:12 Order name: Urine Dipstick-Ancillary (obtain specimen); Complete Time: 17:15 [facility] 12/08 17:12 Order name: CT Abd/Pelvis - IV Contrast Only; Complete Time: 18:40 [facility] 12/08 17:12 Order name: Urine Test (obtain specimen); Complete Time: 17:15 [facility] Administered Medications: 18:42 CANCELLED (other medication used): morphine 4 mg IVP once; RASS on ADMIN: Combtv4, Very jmm Agttd3, Agttd2, Rstlss1, AlertClm0, Drwsy-1, Lt Sdtn-2, Mod Sdtn-3, Dp Sdtn-4, UnArsble-5 18:51 Drug: Zofran (Ondansetron) 4 mg Route: IVP; Site: right antecubital; jd3 20:08 Follow up: Response: No adverse reaction ea 18:51 Drug: Ketorolac 30 mg Route: IVP; Site: right antecubital; jd3 20:08 Follow up: Response: No adverse reaction ea 19:35 Drug: morphine 4 mg Route: IVP; Site: right antecubital; ea 20:08 Follow up: Response: No adverse reaction ea Disposition: 12/08/20 19:55 Discharged to Home. Impression: Unspecified ovarian cysts. - Condition is Stable. - Discharge Instructions: Ovarian Cyst. - Prescriptions for Ibuprofen 800 mg Oral Tablet - take 1 tablet by ORAL route every 8 hours As needed take with food; 30 tablet. - Medication Reconciliation Form, Thank You Letter, Antibiotic Education, Prescription Opioid Use, Work release form form. - Follow up: Private Physician; When: 2 - 3 days; Reason: Recheck today's complaints, Continuance of care, Re-evaluation by your physician. Addendum: 12/10/2020 06:53 Co-signature as Attending Physician, Misha Muñoz MD I agree with the assessment and c etienne plan of care. Signatures: Dispatcher [employer] Misha Croft MD MD cha Mickail, Joel, PA PA jmm Antunez, Elena, RN Cameron Aguirre ea RN RN jd3 AcobEryn RN RN ca1 Corrections: (The following items were deleted from the chart) 12/08 18:42 18:42 morphine 4 mg IVP once; RASS on ADMIN: Combtv4, Very Agttd3, Agttd2, Rstlss1, jmm AlertClm0, Drwsy-1, Lt Sdtn-2, Mod Sdtn-3, Dp Sdtn-4, UnArsble-5 ordered. carson 20:07 19:55 12/08/2020 19:55 Discharged to Home. Impression: Unspecified ovarian cysts. ea Condition is Stable. Forms are Work release form, Medication Reconciliation Form, Thank You Letter, Antibiotic Education, Prescription Opioid Use. Follow up: Private Physician; When: 2 - 3 days; Reason: Recheck today's complaints, Continuance of care, Re-evaluation by your physician. carson
[2020-12-08 20:27] VITALS: BP 110/70; TEMP 98; O2SAT 98
== END 2020-12-08 20:07 | disposition home or self-care (01) ==
LOC: ER 14:30
DX: N83.209 Unspecified ovarian cyst, unspecified side (principal); F17.210 Nicotine dependence, cigarettes, uncomplicated
CPT/HCPCS: 36415; 74177; 80048; 80076; 81003; 81025; 83690; 85025; 96374; 96375; 99284; J2405; Q9967

== ENCOUNTER 2021-01-09 09:10 | Emergency (ER) | payer SELFPAY ==
--- OUTSIDE RECORDS SUMMARY | 2021-01-09 09:12 | XMS REPORT | Continuity of Care Document ---
:1995 Author Organization [facility] t Address [address] [place] [address] Care Team Providers Name Role Phone Deepa Patterson NP Attending Clinician José Miguel CHAVIRA Attending Clinician Problems This patient has no known problems. Allergies, Adverse Reactions, Alerts This patient has no known allergies or adverse reactions. Medications This patient has no known medications. Procedures This patient has no known procedures. Encounters Start End Encounter Admission Attending Care Care Encounter Source Date/Time Date/Time Type Type Clinicians Facility Department ID 2020-12-09 2020-12-10 Emergency [facility] [id number] 19:02:00 01:46:00 Tessa Dalton [id number] [place] [id number] [place] [address] [id number] 2020-06-16 2020-06-16 [facility] [id number] 15:24:00 17:00:00 Caity Dalton [id number] [place] [id number] [place] [address] [id number] Results This patient has no known results.
[2021-01-09] MEDS ORDERED: KETOROLAC 30 MG/ML INJ ONE (10:06)
--- NOTE | 2021-01-09 10:28 | RAD REPORT ---
EXAM DESCRIPTION: RAD - Chest Pa And Lat (2 Views) - 01/09/2021 10:20 am CLINICAL HISTORY: CHEST PAIN Chest pain. COMPARISON: Abdomen Acute Series dated 06/06/2018; CHEST PA AND LAT 2 VIEW dated 09/30/2008; CHEST PA A ND LAT 2 VIEW dated 04/22/2006; Abdomen Pelvis W Contrast dated 12/08/2020 FINDINGS: The lungs are clear. The heart is normal in size. No displaced fractures. IMPRESSION: No acute or concerning finding suspected.
--- NOTE | 2021-01-09 10:45 | ER ---
Nurse's Notes [facility] Name: Lilia Nunez Age: 25 yrs Sex: Female : 1995 Arrival Date: 01/09/2021 Time: 09:11 Bed 4 Private MD: Diagnosis: Chondrocostal junction syndrome [Tietze] Presentation: 01/09 09:14 Chief complaint: Patient states: "I just don't feel right. My left ankle hurts and I jd3 don't know what i did to it. my chest hurts when I breath. and I have been taking all these bad meds and I just don't feel right.". Coronavirus screen: At this time, the client does not indicate any symptoms associated with coronavirus-19. Ebola Screen: Patient negative for fever greater than or equal to 101.5 degrees Fahrenheit, and additional compatible Ebola Virus Disease symptoms. Initial Sepsis Screen: Does the patient meet any 2 criteria? No. Patient's initial sepsis screen is negative. Does the patient have a suspected source of infection? No. Patient's initial sepsis screen is negative. Risk Assessment: Do you want to hurt yourself or someone else? Patient reports no desire to harm self or others. Onset of symptoms was January 09, 2021. 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 - Social history:: Smoking status: unknown. Screenin:13 Abuse screen: Denies threats or abuse. Nutritional screening: No deficits noted. ap3 Tuberculosis screening: No symptoms or risk factors identified. Fall Risk No fall in past 12 months (0 pts). No secondary diagnosis (0 pts). IV access (20 points). Ambulatory Aid- None/Bed Rest/Nurse Assist (0 pts). Gait- Impaired (20 pts.). Mental Status- Oriented to own ability (0 pts). Total Reynolds Fall Scale indicates Low Risk Score (25-44 pts). Fall prevention measures have been instituted. Side Rails Up X 2 Frequent Obs/Assesments occuring As available Patient and Family Educated on Fall Prevention Program and strategies. Assessment: 10:09 General: Appears uncomfortable, Behavior is cooperative, appropriate for age, restless. ap3 General: patient states that her ex boyfriend has been getting her "morphine pills" for her pain because the medication prescribed to her was not alleviating her pain. Patient states she takes these "morphine pills" 3 to 4 times a day, strength is unknown.. Pain: Complains of pain in chest and right ankle. Neuro: Level of Consciousness is awake, alert, obeys commands, Oriented to person, place, time, situation, Gait is unsteady. Cardiovascular: Reports chest pain, Capillary refill < 3 seconds. Respiratory: Airway is patent Respiratory effort is even, unlabored, Respiratory pattern is regular, symmetrical, Denies cough, shortness of breath. GI: Abdomen is round Bowel sounds present X 4 quads. : Reports she was diagnosed with an ovarian cyst last month, has been self medicating for it but is currently having no symptoms. EENT: No signs and/or symptoms were reported regarding the EENT system. Derm: No signs and/or symptoms reported regarding the dermatologic system. Musculoskeletal: Reports pain in right ankle. 11:06 Reassessment: Pt discharged, awaiting transportation at this time. jl7 Vital Signs: 09:16 BP 137 / 82; Pulse 114; Resp 19 S; Temp 97.3(TE); Pulse Ox 100% on R/A; Weight 90.72 kg jd3 (R); Height 5 ft. 2 in. (157.48 cm) (R); Pain 10/10; 10:50 BP 121 / 81; Pulse 97; Pulse Ox 100% on R/A; ap3 09:16 Body Mass Index 36.58 (90.72 kg, 157.48 cm) jd3 ED Course: 09:11 Patient arrived in ED. am2 09:15 Triage completed. jd3 09:17 Arm band placed on. jd3 09:22 Jadiel Roth PA is PHCP. jr8 09:22 Misha Muñoz MD is Attending Physician. jr8 09:25 Lay Crawford, LYNETTE is Primary Nurse. ap3 10:14 Patient has correct armband on for positive identification. Bed in low position. Call ap3 light in reach. Side rails up X 1. Pulse ox on. NIBP on. Door closed. Noise minimized. 10:20 XRAY Chest Pa And Lat (2 Views) In Process Unspecified. EDMS 10:57 No provider procedures requiring assistance completed. Patient did not have IV access ap3 during this emergency room visit. Administered Medications: 10:15 Drug: TORadol (ketorolac) 30 mg Route: IM; Site: right gluteus; ap3 10:51 Follow up: Response: No adverse reaction; Pain is decreased ap3 Outcome: 10:44 Discharge ordered by . 8 10:57 Discharged to home ambulatory. ap3 10:57 Condition: good 10:57 Discharge instructions given to patient, Instructed on discharge instructions, follow up and referral plans. medication usage, Demonstrated understanding of instructions, follow-up care, medications, Prescriptions given X 2. 11:28 Patient left the ED. ap3 Signatures: Dispatcher [employer] EDMS Jadiel Roth PA PA jr8 Elio Dawn RN RN jl7 Lay Mosley Jonathon, RN RN jd3 Lay Crawford RN RN ap3 Corrections: (The following items were deleted from the chart) 09:20 09:16 Pulse 114bpm; Resp 19bpm; Spontaneous; Pulse Ox 100% RA; Temp 97.3F Temporal; jd3 90.72 kg Reported; Height 5 ft. 2 in. Reported; BMI: 36.5; Pain 06/07; jd3
--- NOTE | 2021-01-09 10:45 | EDPHYS ---
Physician Documentation [facility] Name: Lilia Nunez Age: 25 yrs Sex: Female : 1995 Arrival Date: 01/09/2021 Time: 09:11 Bed 4 Private MD: ED Physician Misha Muñoz HPI: 01/09 09:55 This 25 yrs old Female presents to ER via Ambulatory with complaints of Chest jr8 Pain. 09:55 The patient or guardian reports chest pain that is located primarily in the anterior jr8 chest wall. The pain does not radiate. Associated signs and symptoms: The patient has no apparent associated signs or symptoms. The chest pain is described as sharp. Duration: The patient or guardian reports multiple episodes. Modifying factors: The symptoms are alleviated by rest, the symptoms are aggravated by movement, palpation of area. Severity of pain: At its worst the pain was moderate in the emergency department the pain is unchanged. The patient has not experienced similar symptoms in the past. The patient has not recently seen a physician. Patient stated that she woke up with chest wall pain on left side that is worse with palpation, breathing, and movement. Denies trauma or recent URI. Stated that her left ankle is also cramping but again denies trauma . 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 - Social history:: Smoking status: unknown. ROS: 09:55 Eyes: Negative for injury, pain, redness, and discharge, ENT: Negative for injury, jr8 pain, and discharge, Neck: Negative for injury, pain, and swelling, Respiratory: Negative for shortness of breath, cough, wheezing, and pleuritic chest pain, Abdomen/GI: Negative for abdominal pain, nausea, vomiting, diarrhea, and constipation, Back: Negative for injury and pain, MS/Extremity: Negative for injury and deformity, Skin: Negative for injury, rash, and discoloration, Neuro: Negative for headache, weakness, numbness, tingling, and seizure. 09:55 Cardiovascular: Positive for chest pain, with movement, Negative for edema, orthopnea, palpitations, paroxysmal nocturnal dyspnea. Exam: 09:55 Neck: Trachea midline, no thyromegaly or masses palpated, and no cervical jr8 lymphadenopathy. Supple, full range of motion without nuchal rigidity, or vertebral point tenderness. No Meningismus. Cardiovascular: Regular rate and rhythm with a normal S1 and S2. No gallops, murmurs, or rubs. Normal PMI, no JVD. No pulse deficits. Respiratory: Lungs have equal breath sounds bilaterally, clear to auscultation and percussion. No rales, rhonchi or wheezes noted. No increased work of breathing, no retractions or nasal flaring. Abdomen/GI: Soft, non-tender, with normal bowel sounds. No distension or tympany. No guarding or rebound. No evidence of tenderness throughout. Back: No spinal tenderness. No costovertebral tenderness. Full range of motion. Skin: Warm, dry with normal turgor. Normal color with no rashes, no lesions, and no evidence of cellulitis. MS/ Extremity: Pulses equal, no cyanosis. Neurovascular intact. Full, normal range of motion. Neuro: Awake and alert, GCS 15, oriented to person, place, time, and situation. Cranial nerves II-XII grossly intact. Motor strength 5/5 in all extremities. Sensory grossly intact. 09:55 Chest/axilla: Inspection: normal, Palpation: tenderness, that is moderate, of the anterior aspect of left upper chest and mid-sternal area, that totally reproduces the patient's complaints. 10:01 ECG was reviewed by the Attending Physician. [facility] Vital Signs: 09:16 BP 137 / 82; Pulse 114; Resp 19 S; Temp 97.3(TE); Pulse Ox 100% on R/A; Weight 90.72 kg jd3 (R); Height 5 ft. 2 in. (157.48 cm) (R); Pain 10/10; 10:50 BP 121 / 81; Pulse 97; Pulse Ox 100% on R/A; ap3 09:16 Body Mass Index 36.58 (90.72 kg, 157.48 cm) jd3 MDM: 09:25 Patient medically screened. jacek 10:02 The patient's pulmonary embolism risk score was calculated as follows: No Risks (0 Pts).jr8 10:04 Data reviewed: vital signs, nurses notes, EKG, radiologic studies, plain films. Data jr8 interpreted: Pulse oximetry: on room air is 100 %. Interpretation: normal. Counseling: I had a detailed discussion with the patient and/or guardian regarding: the historical points, exam findings, and any diagnostic results supporting the discharge/admit diagnosis, radiology results, the need for outpatient follow up, a family practitioner, to return to the emergency department if symptoms worsen or persist or if there are any questions or concerns that arise at home. 01/09 09:36 Order name: XRAY Chest Pa And Lat (2 Views); Complete Time: 10:42 jr8 01/09 09:36 Order name: EKG; Complete Time: 09:38 jr8 01/09 09:36 Order name: EKG - Nurse/Tech; Complete Time: 10:15 jr8 EC:01 Rate is 65 beats/min. Rhythm is regular, Normal Sinus Rhythm. QRS [place] is Normal. [place] jr8 interval is normal. QRS interval is normal. QT interval is normal. No Q waves. T waves are Inverted in lead III. T waves are Flattened in leads aVF, V3. No ST changes noted. Clinical impression: NSR w/ Non-specific ST/T Changes and No evidence of ischemia. Interpreted by me. Reviewed by me. Administered Medications: 10:15 Drug: TORadol (ketorolac) 30 mg Route: IM; Site: right gluteus; ap3 10:51 Follow up: Response: No adverse reaction; Pain is decreased ap3 Disposition: 01/10 07:50 Co-signature as Attending Physician, Misha Muñoz MD I agree with the assessment and jacek plan of care. Disposition: 01/09/21 10:44 Discharged to Home. Impression: Chondrocostal junction syndrome [Tietze]. - Condition is Stable. - Discharge Instructions: Chest Wall Pain, Costochondritis. - Prescriptions for Ibuprofen 800 mg Oral Tablet - take 1 tablet by ORAL route every 8 hours As needed take with food; 30 tablet. Zofran 4 mg Oral Tablet - take 1 tablet by ORAL route every 12 hours As needed; 20 tablet. - Medication Reconciliation Form, Thank You Letter, Antibiotic Education, Prescription Opioid Use form. - Follow up: Private Physician; When: 5 - 6 days; Reason: Recheck today's complaints, Continuance of care, Re-evaluation by your physician. - Problem is new. - Symptoms have improved. Signatures: Dispatcher [employer] EDMS Misha Muñoz MD MD cha Roszak, Josh, PA PA jr8 Cameron Holden, RN RN jd3 Lay Crawford RN RN ap3 Corrections: (The following items were deleted from the chart) 01/09 11:28 10:44 01/09/2021 10:44 Discharged to Home. Impression: Chondrocostal junction syndrome ap3 [Tietze]. Condition is Stable. Forms are Medication Reconciliation Form, Thank You Letter, Antibiotic Education, Prescription Opioid Use. Follow up: Private Physician; When: 5 - 6 days; Reason: Recheck today's complaints, Continuance of care, Re-evaluation by your physician. Problem is new. Symptoms have improved. jr8
[2021-01-09 11:35] VITALS: TEMP 97.3; O2SAT 100
[2021-01-09 11:36] VITALS: BP 121/81
== END 2021-01-09 11:28 | disposition home or self-care (01) ==
LOC: ER 09:10
DX: M94.0 Chondrocostal junction syndrome [Tietze] (principal); J45.909 Unspecified asthma, uncomplicated
CPT/HCPCS: 71046; 93005; 96372; 99284

== ENCOUNTER 2022-09-03 18:07 | Emergency (ER) | payer SELFPAY ==
--- OUTSIDE RECORDS SUMMARY | 2022-09-03 18:11 | XMS REPORT | Continuity of Care Document ---
:1995 Author Organization [facility] t Address [address] [place] [address] Care Team Providers Name Role Phone PCP, PATIENT DOES NOT HAVE A Primary Care Physician UnavailQIANA Diaz Attending Clinician Unavailable Qiana Kinney Attending Clinician Elliot Fletcher Attending Clinician ELLIOT FRASER Attending Clinician Unavailable Amber Cardozo NP Attending Clinician Payers Payer Name Policy Type Policy Number Effective Date Expiration Date S celio MEDICAID PENDING PENDING 2021 00:00:00 Problems Condition Condition Condition Status Onset Resolution Last Treating Co mments Source Name Details Category Date Date Treatment Clinician Date No known No known Disease Unive rs active active ity of problems problems [facility] Allergies, Adverse Reactions, Alerts Allergy Allergy Status Severity Reaction(s) Onset Inactive Treating Comm ents Source Name Type Date Date Clinician NO KNOWN Drug Active Univers ALLERGIE Class ity [facility] Social History Social Habit Start Date Stop Date Quantity Comments Source Exposure to Not sure [facility] SARS-CoV-2 (event) Medica l Branch Cigarettes smoked 2017-07-12 2017-07-12 [facility] current (pack per 00:00:00 00:00:00 Medical Branch ) - Reported Tobacco use and 2017-07-12 2017-07-12 Never used [facility] [place] exposure 00:00:00 00:00:00 Medical Branch Sex Ass[birth year] At [birth year] [facility] 00:00:00 00:00:00 Medical Branch Smoking Status Start Date Stop Date Source Current every day smoker 2017-07-12 00:00:00 [facility] Medications Ordered Filled Start Stop Current Ordering Indication Dosage Frequency Signature Comments Components Source Medication Medication Date Date Medication? Clinician (SIG) Name Name Dose 2021-0 No Unknown 6-02 00:00: 00 Dose 2022-0 No Unknown 6-02 00:00: 00 Dose 2022-0 No Unknown 4-17 00:00: 00 Dose 2022-0 No Unknown 4-17 00:00: 00 Dose 2022-0 No Unknown 4-17 00:00: 00 Dose 2022-0 No Unknown 4-17 00:00: 00 Dose 2022-0 No Unknown 3-12 00:00: 00 Dose 2022-0 No Unknown 3-12 00:00: 00 Dose 2022-0 No Unknown 3-12 00:00: 00 Dose 2022-0 No Unknown 3-12 00:00: 00 Dose 2022-0 No Unknown 3-12 00:00: 00 Dose 2022-0 No Unknown 3-12 00:00: 00 Dose 2022-0 No Unknown 3-12 00:00: 00 Dose 2022-0 No Unknown 3-12 00:00: 00 Dose 2022-0 No Unknown 3-12 00:00: 00 Dose 2022-0 No Unknown 3-12 00:00: 00 Dose 2022-0 No Unknown 3-12 00:00: 00 Dose 2022-0 No Unknown 3-12 00:00: 00 Dose 2022-0 No Unknown 3-12 00:00: 00 Dose 2022-0 No Unknown 3-12 00:00: 00 Dose 2022-0 No Unknown 3-12 00:00: 00 Dose 2022-0 No Unknown 3-12 00:00: 00 Dose 2022-0 No Unknown 3-12 00:00: 00 Dose 2022-0 No Unknown 3-12 00:00: 00 Dose 2022-0 No Unknown 3-12 00:00: 00 Dose 2022-0 No Unknown 3-12 00:00: 00 Dose 2022-0 No Unknown 3-11 00:00: 00 Dose 2022-0 No Unknown 3-11 00:00: 00 Dose 2022-0 No Unknown 3-11 00:00: 00 Dose 2022-0 No Unknown 3-11 00:00: 00 Dose 2022-0 No Unknown 3-11 00:00: 00 Dose 2022-0 No Unknown 3-11 00:00: 00 Dose 2022-0 No Unknown 3-11 00:00: 00 Dose 2022-0 No Unknown 3-11 00:00: 00 Dose 2022-0 No Unknown 3-11 00:00: 00 Dose 2022-0 No Unknown 3-11 00:00: 00 Dose 2022-0 No Unknown 3-11 00:00: 00 Dose 2022-0 No Unknown 3-11 00:00: 00 Dose 2022-0 No Unknown 3-10 00:00: 00 Dose 2022-0 No Unknown 3-10 00:00: 00 Dose 2022-0 No Unknown 3-10 00:00: 00 Dose 2022-0 No Unknown 3-10 00:00: 00 Dose 2022-0 No Unknown 3-10 00:00: 00 Dose 2022-0 No Unknown 3-10 00:00: 00 Dose 2022-0 No Unknown 3-10 00:00: 00 Dose 2022-0 No Unknown 3-10 00:00: 00 Dose 2022-0 No Unknown 3-10 00:00: 00 Dose 2022-0 No Unknown 3-10 00:00: 00 Dose 2022-0 No Unknown 3-10 00:00: 00 Dose 2022-0 No Unknown 3-10 00:00: 00 Dose 2022-0 No Unknown 3-10 00:00: 00 Dose 2022-0 No Unknown 3-10 00:00: 00 Dose 2022-0 No Unknown 3-10 00:00: 00 Dose 2022-0 No Unknown 3-10 00:00: 00 Dose 2022-0 No Unknown 3-10 00:00: 00 Dose 2022-0 No Unknown 3-10 00:00: 00 Dose 2022-0 No Unknown 3-10 00:00: 00 Dose 2022-0 No Unknown 3-10 00:00: 00 Dose 2022-0 No Unknown 3-10 00:00: 00 Dose 2022-0 No Unknown 3-10 00:00: 00 Dose 2022-0 No Unknown 3-10 00:00: 00 Dose 2022-0 No Unknown 3-10 00:00: 00 Dose 2022-0 No Unknown 3-10 00:00: 00 Dose 2022-0 No Unknown 3-10 00:00: 00 Dose 2022-0 No Unknown 3-10 00:00: 00 Dose 2022-0 No Unknown 3-10 00:00: 00 Dose 2022-0 No Unknown 3-09 00:00: 00 Dose 2022-0 No Unknown 3-09 00:00: 00 Dose 2022-0 No Unknown 3-09 00:00: 00 Dose 2022-0 No Unknown 3-09 00:00: 00 Dose 2022-0 No Unknown 3-09 00:00: 00 Dose 2022-0 No Unknown 3-09 00:00: 00 Dose 2022-0 No Unknown 3-09 00:00: 00 Dose 2022-0 No Unknown 3-09 00:00: 00 Dose 2022-0 No Unknown 3-09 00:00: 00 Dose 2022-0 No Unknown 3-09 00:00: 00 Dose 2022-0 No Unknown 3-09 00:00: 00 Dose 2022-0 No Unknown 3-09 00:00: 00 Dose 2022-0 No Unknown 3-09 00:00: 00 Dose 2022-0 No Unknown 3-09 00:00: 00 Dose 2022-0 No Unknown 3-09 00:00: 00 Dose 2022-0 No Unknown 3-09 00:00: 00 Dose 2022-0 No Unknown 3-09 00:00: 00 Dose 2022-0 No Unknown 3-09 00:00: 00 Dose 2022-0 No Unknown 3-09 00:00: 00 Dose 2022-0 No Unknown 3-09 00:00: 00 Dose 2022-0 No Unknown 3-09 00:00: 00 Dose 2022-0 No Unknown 3-09 00:00: 00 Dose 2022-0 No Unknown 3-09 00:00: 00 Dose 2022-0 No Unknown 3-09 00:00: 00 Dose 2022-0 No Unknown 3-09 00:00: 00 Dose 2022-0 No Unknown 3-09 00:00: 00 Dose 2022-0 No Unknown 3-09 00:00: 00 Dose 2021-0 No Unknown 3-09 00:00: 00 Dose 2021-0 No Unknown 3- 00:00: 00 Dose 2021-0 No Unknown 3- 00:00: 00 Dose 2021-0 No Unknown 3- 00:00: 00 Dose 2021-0 No Unknown 3- 00:00: 00 Dose 2021-0 No Unknown 3- 00:00: 00 Dose 2021-0 No Unknown 3- 00:00: 00 Dose 2021-0 No Unknown 3- 00:00: 00 Dose 2021-0 No Unknown 3- 00:00: 00 Dose 2021-0 No Unknown 3- 00:00: 00 Dose 2021-0 No Unknown 3- 00:00: 00 cefTRIAXone 2020-08 500mg 500 mg, U nivers (ROCEPHIN) 10-26 12- Intramuscu it y of injection 03:45: 02:59 lar, ONCE, [place] 500 mg 00 :00 1 dose, On Medical [facility] 08/24/21 at 2145, VIVIEN
Re ason for Anti-Infec tive: Documented Infection< br>Documen héctor Infection Site: Pelvic
Duration of Therapy: 7 days NaCl 0.9% 2020-08 1000mL at 999 Uni vers (NS) bolus 10-26 12-28 mL/hr, ity of infusion 02:00: 02:45 1,000 mL, [place] 1,000 mL 00 :00 IV Medical Infusion, Branch ONCE, 1 dose, On [facility] 08/24/21 at 2000, VIVIEN doxycycline 2020-08 No [id number] 100mg Take 1 Univers hyclate 100 10-25 [id number] capsule by i ty of mg capsule 00:00: 05:59 mouth 2 [place] as 00 :00 (two) Medical times [place] daily for 7 days. traMADoL No 50mg 50 mg, Univer s (ULTRAM) 03-26 Oral, ity of tablet 50 22:15: 21:15 ONCE, 1 [place] mg 00 :00 dose, [facility] 03/26/21 at Branch 1715, Routine traMADoL 50 Yes [id number] 50mg Take 1 Univ ers mg tablet 7-29 tablet by ity o f 00:00: mouth [place] 00 every 6 Medical (six) Branch hours as needed for Pain (scale 7-10). Indication s: acute pain traMADoL 50 Yes [id number] 50mg Take 1 Univ ers mg tablet 7-29 tablet by ity o f 00:00: mouth [place] 00 every 6 Medical (six) Branch hours as needed for Pain (scale 7-10). Indication s: acute pain clindamycin 2020- No [id number] 450mg Take 3 Univers 150 mg - 08-09 capsules ity of capsule 00:00: 04:59 by mouth 3 [place] as 00 :00 (three) Medical times Branch daily for 10 days. dicyclomine Yes 20mg 20 mg, Univ ers (BENTYL) 12-10 Intramuscu ity o f injection 13:00: lar, QID, [place] 20 mg 00 First dose Medical on Tue Branch 12/10/20 at 0800, Until Discontinu ed, Routine ketorolac 2020- No 30mg 30 mg, Unive rs (TORADOL) 12-10 Slow IV ity of injection 04:45: 03:51 Push, [place] 30 mg 00 :00 ONCE, 1 Medical dose, Tue Branch 12/09/20 at 2345, Routine
membership counselor approving Restricted medication : AMBER CARDOZO dicyclomine Yes [id number] 20mg Take 1 Univers 20 mg 12-10 [id number] tablet by ity of tablet 00:00: mouth 4 [place] 00 (four) Medical times Branch daily as needed for Abdominal pain. dicyclomine 2020- No [id number] 20mg Take 1 Univers 20 mg 12-10 [id number] tablet by ity of tablet 00:00: 00:00 mouth 4 [place] 00 :00 (four) Medical times Branch daily as needed for Abdominal pain. indomethaci 2020- No [id number] 50mg Take 1 Univers n 50 mg 12-10 [id number] capsule by ity of capsule 00:00: 04:59 mouth 2 [place] 00 :00 (two) Medical times Branch daily with meals for 7 days. Flonase No 12mcg/a Allergy 3-05 ctuatio Relief 50 00:00: n mcg/actuati 00 on nasal spray,suspe nsion Bromfed DM 2020-0 No 75mg/5 2 mg-30 3-05 mL mg-10 mg/5 00:00: mL oral 00 syrup HYDROcodone 2019-08 2020- No 1{tbl} 1 tablet, Univers -acetaminop 0-16 06- Oral, ity of hen (NORCO 22:00: 21:06 ONCE, 1 [place] 5) 5-325 mg 00 :00 dose, Mon Med ical tablet 1 06/16/20 Branch tablet at 1700, VIVIEN ketorolac 2019-08- No 60mg 60 mg, Unive rs (TORADOL) 06-16 Intramuscu ity of injection 22:00: 21:07 lar, ONCE, [place] 60 mg 00 :00 1 dose, Medical Mon Branch 06/16/20 at 1700, VIVIEN
Fa culty member approving Restricted medication : EMERGENCY ROOM, penicillin 2019-08- No [id number] 500mg Take 1 Univers v potassium 0-16 06- tablet by it y of 500 mg 00:00: 04:59 mouth 4 [place] tablet 00 :00 (four) Medical times Branch daily for 7 days. acetaminoph 2019-08- No [id number] 1{tbl} Take 1 U nivers en-codeine 0-16 06- tablet by ity of 300-30 mg 00:00: 04:59 mouth [place] tablet 00 :00 every 6 Medical (six) Branch hours as needed for Pain (scale 7-10) for up to 7 days. Indication s: acute pain codeine-gua 2016-08 Yes 5mL Take 5 mL U nivers ifenesin 1-14 by mouth ity of 10-100 mg/5 00:00: every 6 [place] mL solution 00 (six) Medical hours as Branch needed for Cough. ondansetron 2016-08 Yes 4mg Take 1 Univ ers 4 mg 1-14 tablet by ity of disintegrat 00:00: mouth [place] ing tablet 00 every 8 Medica l (eight) Branch hours as needed for Nausea and Vomiting (N/V). codeine-gua 2016-08 Yes 5mL Take 5 mL U nivers ifenesin 1-14 by mouth ity of 10-100 mg/5 00:00: every 6 [place] mL solution 00 (six) Medical hours as Branch needed for Cough. ondansetron 2016-08 Yes 4mg Take 1 Univ ers 4 mg 14 tablet by ity of disintegrat 00:00: mouth [place] ing tablet 00 every 8 Medica l (eight) Branch hours as needed for Nausea and Vomiting (N/V). codeine-gua 2016-08 No 5mL Take 5 mL Univers ifenesin 09-11 by mouth ity of 10-100 mg/5 00:00: 00:00 every 6 [place] mL solution 00 :00 (six) Medical hours as Branch needed for Cough. ondansetron 2016-08 No 4mg Take 1 Uni vers 4 mg 09-11 tablet by ity of disintegrat 00:00: 00:00 mouth [place] ing tablet 00 :00 every 8 Medica l (eight) Branch hours as needed for Nausea and Vomiting (N/V). ibuprofen No 1mg 800 mg 5-03 tablet 00:00: 00 Immunizations Ordered Filled Immunization Date Status Comments [facility] e Immunization Name Name SARS-COV-2 COVID-19 2021-01-17 Completed Unive rsity of PFIZER VACCINE 00:00:00 [facility] SARS-COV-2 COVID-19 2021-01-17 Completed Unive rsity of PFIZER VACCINE 00:00:00 [facility] SARS-COV-2 COVID-19 2020-12-20 Completed Unive rsity of PFIZER VACCINE 00:00:00 [facility] SARS-COV-2 COVID-19 2020-12-20 Completed Unive rsity of PFIZER VACCINE 00:00:00 [facility] Influenza, 2017-08-24 Completed seasonal, inj 00:00:00 Hep A-Hep B 2017-04-06 Completed 00:00:00 Vital Signs Vital Name Observation Time Observation Value Comments Source Systolic blood 2021-08-25 02:00:00 120 mm[Hg] Univer sity of pressure [facility] Diastolic blood 2021-08-25 02:00:00 82 mm[Hg] Unive rsity of pressure [facility] Heart rate 2021-08-25 02:00:00 82 /min [facility] Respiratory rate 2021-08-25 02:00:00 15 /min [facility] [place] [facility] Oxygen saturation in 2021-08-25 02:00:00 100 /min University of Arterial blood by [facility] Pulse oximetry Branch Body temperature 2021-08-25 00:45:00 37.17 Ariane [facility] [place] [facility] Body weight 2021-08-25 00:45:00 86.183 kg [facility] [place] [facility] BMI 2021-08-25 00:45:00 34.75 kg/m2 [facility] [place] [facility] Systolic blood 2021 20:13:00 108 mm[Hg] Univer sity of pressure [place] [facility] Diastolic blood 2021 20:13:00 86 mm[Hg] Unive rsity of pressure [place] [facility] Heart rate 2021 20:13:00 90 /min [facility] [place] [facility] Body temperature 2021 20:13:00 37.5 Ariane [facility] [place] [facility] Respiratory rate 2021 20:13:00 18 /min [facility] [place] [facility] Body height 2021 20:13:00 157.5 cm [facility] [place] [facility] Body weight 2021 20:13:00 88.905 kg [facility] [place] [facility] BMI 2021 20:13:00 35.85 kg/m2 [facility] [place] [facility] Oxygen saturation in 2021 20:13:00 100 /min University of Arterial blood by [facility] Pulse oximetry Branch Systolic blood 2020-12-10 00:00:00 120 mm[Hg] Univer sity of pressure [place] [facility] Diastolic blood 2020-12-10 00:00:00 74 mm[Hg] Unive rsity of pressure [place] [facility] Heart rate 2020-12-10 00:00:00 71 /min [facility] [place] [facility] Body temperature 2020-12-10 00:00:00 37.5 Ariane [facility] [place] [facility] Respiratory rate 2020-12-10 00:00:00 18 /min [facility] [place] [facility] Body weight 2020-12-10 00:00:00 86.183 kg [facility] [place] [facility] BMI 2020-12-10 00:00:00 34.75 kg/m2 [facility] [place] [facility] Oxygen saturation in 2020-12-10 00:00:00 97 /min University of Arterial blood by [facility] juan m Pulse oximetry Branch Systolic blood 2020-12-10 00:00:00 120 mm[Hg] Univer sity of pressure [place] [facility] Diastolic blood 2020-12-10 00:00:00 74 mm[Hg] Unive rsity of pressure [place] [facility] Heart rate 2020-12-10 00:00:00 71 /min [facility] [place] [facility] Body temperature 2020-12-10 00:00:00 37.5 Ariane [facility] [place] [facility] Respiratory rate 2020-12-10 00:00:00 18 /min [facility] [place] [facility] Body weight 2020-12-10 00:00:00 86.183 kg [facility] [place] [facility] BMI 2020-12-10 00:00:00 34.75 kg/m2 [facility] [place] [facility] Oxygen saturation in 2020-12-10 00:00:00 97 /min University of Arterial blood by [facility] Pulse oximetry Branch Systolic blood 2020-06-16 20:21:00 132 mm[Hg] Univer sity of pressure [place] [facility] Diastolic blood 2020-06-16 20:21:00 74 mm[Hg] Unive rsity of pressure [place] [facility] Heart rate 2020-06-16 20:21:00 82 /min [facility] [place] [facility] Body temperature 2020-06-16 20:21:00 36.72 Ariane [facility] [place] [facility] Respiratory rate 2020-06-16 20:21:00 20 /min [facility] [place] [facility] Body height 2020-06-16 20:21:00 157.5 cm [facility] [place] [facility] Body weight 2020-06-16 20:21:00 86.183 kg [facility] [place] [facility] BMI 2020-06-16 20:21:00 34.75 kg/m2 [facility] [place] [facility] Oxygen saturation in 2020-06-16 20:21:00 100 /min University of Arterial blood by [facility] juan m Pulse oximetry Branch Systolic blood 2020-06-16 20:21:00 132 mm[Hg] Univer sity of pressure [place] [facility] Diastolic blood 2020-06-16 20:21:00 74 mm[Hg] Unive rsity of pressure [facility] Heart rate 2020-06-16 20:21:00 82 /min Universi ty [facility] Body temperature 2020-06-16 20:21:00 36.72 Ariane Univ ersity of [facility] Respiratory rate 2020-06-16 20:21:00 20 /min [facility] Body height 2020-06-16 20:21:00 157.5 cm Universi ty of [facility] Body weight 2020-06-16 20:21:00 86.183 kg Universi ty of [facility] BMI 2020-06-16 20:21:00 34.75 kg/m2 Universi ty [facility] Oxygen saturation in 2020-06-16 20:21:00 100 /min [facility] Arterial blood by [facility] Pulse oximetry Branch BP Systolic 2021-11-04 11:02:00 108 mm[Hg] BP Diastolic 2021-11-04 11:02:00 68 mm[Hg] Weight Measured 2021-11-04 11:02:00 201.20 pounds Height Measured 2021-11-04 11:02:00 62.00 inches Body Temperature 2021-11-04 11:02:00 98.00 degrees Heart Rate 2021-11-04 11:02:00 83.00 /min Respiratory Rate 2021-11-04 11:02:00 BP Systolic 2021-09-08 14:27:00 BP Diastolic 2021-09-08 14:27:00 Weight Measured 2021-09-08 14:27:00 180.00 pounds Height Measured 2021-09-08 14:27:00 62.00 inches Body Temperature 2021-09-08 14:27:00 Heart Rate 2021-09-08 14:27:00 Respiratory Rate 2021-09-08 14:27:00 BP Systolic 2018-08-15 11:28:00 117 mm[Hg] BP Diastolic 2018-08-15 11:28:00 70 mm[Hg] Weight Measured 2018-08-15 11:28:00 175.60 pounds Height Measured 2018-08-15 11:28:00 62.00 inches Body Temperature 2018-08-15 11:28:00 98.60 degrees Heart Rate 2018-08-15 11:28:00 84.00 /min Respiratory Rate 2018-08-15 11:28:00 16.00 /min BP Systolic 2018-08-15 11:25:00 117 mm[Hg] BP Diastolic 2018-08-15 11:25:00 70 mm[Hg] Weight Measured 2018-08-15 11:25:00 175.60 pounds Height Measured 2018-08-15 11:25:00 62.00 inches Body Temperature 2018-08-15 11:25:00 98.60 degrees Heart Rate 2018-08-15 11:25:00 84.00 /min Respiratory Rate 2018-08-15 11:25:00 16.00 /min BP Systolic 2017-08-24 11:17:00 131 mm[Hg] BP Diastolic 2017-08-24 11:17:00 77 mm[Hg] Weight Measured 2017-08-24 11:17:00 155.80 pounds Height Measured 2017-08-24 11:17:00 62.00 inches Body Temperature 2017-08-24 11:17:00 98.40 degrees Heart Rate 2017-08-24 11:17:00 81.00 /min Respiratory Rate 2017-08-24 11:17:00 17.00 /min BP Systolic 2017-04-04 10:43:00 119 mm[Hg] BP Diastolic 2017-04-04 10:43:00 79 mm[Hg] Weight Measured 2017-04-04 10:43:00 155.40 pounds Height Measured 2017-04-04 10:43:00 62.00 inches Body Temperature 2017-04-04 10:43:00 98.20 degrees Heart Rate 2017-04-04 10:43:00 77.00 /min Respiratory Rate 2017-04-04 10:43:00 15.00 /min BP Systolic 2017-01-21 13:40:00 121 mm[Hg] BP Diastolic 2017-01-21 13:40:00 81 mm[Hg] Weight Measured 2017-01-21 13:40:00 156.60 pounds Height Measured 2017-01-21 13:40:00 62.00 inches Body Temperature 2017-01-21 13:40:00 99.20 degrees Heart Rate 2017-01-21 13:40:00 78.00 /min Respiratory Rate 2017-01-21 13:40:00 16.00 /min BP Systolic 2016-01-02 11:57:00 111 mm[Hg] BP Diastolic 2016-01-02 11:57:00 71 mm[Hg] Weight Measured 2016-01-02 11:57:00 178.00 pounds Height Measured 2016-01-02 11:57:00 62.50 inches Body Temperature 2016-01-02 11:57:00 98.10 degrees Heart Rate 2016-01-02 11:57:00 69.00 /min Respiratory Rate 2016-01-02 11:57:00 16.00 /min BP Systolic 2016-01-02 11:50:00 111 mm[Hg] BP Diastolic 2016-01-02 11:50:00 71 mm[Hg] Weight Measured 2016-01-02 11:50:00 178.00 pounds Height Measured 2016-01-02 11:50:00 62.50 inches Body Temperature 2016-01-02 11:50:00 98.10 degrees Heart Rate 2016-01-02 11:50:00 69.00 /min Respiratory Rate 2016-01-02 11:50:00 16.00 /min BP Systolic 2015-12-30 15:40:00 112 mm[Hg] BP Diastolic 2015-12-30 15:40:00 74 mm[Hg] Weight Measured 2015-12-30 15:40:00 176.60 pounds Height Measured 2015-12-30 15:40:00 62.50 inches Body Temperature 2015-12-30 15:40:00 98.30 degrees Heart Rate 2015-12-30 15:40:00 84.00 /min Respiratory Rate 2015-12-30 15:40:00 16.00 /min Procedures Procedure Date / Time Performed Performing Clinician [facility] e POCT TEST 2021-08-25 01:28:00 Qiana Valdez [facility] BASIC METABOLIC PANEL 2021-08-25 01:26:[address] [facility] (NA, K, CL, CO2, Medical Branch GLUCOSE, BUN, CREATININE, CA) CBC WITH DIFF 2021-08-25 01:26:00 Qiana Valdez [facility] URINALYSIS 2021-08-25 01:26:00 Qiana Valdez [facility] CONSENT/REFUSAL FOR 2021-08-25 00:39:27 Doctor Unassigned, No [facility] [place] [facility] AND Name Medical Branch TREATMENT CONSENT/REFUSAL FOR 2021 20:08:24 Doctor Unassigned, No [facility] [place] DI[facility]NOS[facility] AND Name Medical Branch TREATMENT CT ABDOMEN PELVIS WO 2020-12-10 04:09:17 Amber Cardozo [facility] CONTRAST [facility] URINE DRUG 2020-12-10 03:57:[address] [facility] (IMMUNOASSAY) - 4 ER Medical [facility] PANEL POCT TEST 2020-12-10 01:46:00 Johnnie Olivarez [facility] LIPASE 2020-12-10 01:44:00 Johnnie Olivarez [facility] COMP. METABOLIC PANEL 2020-12-10 01:44:[address] [facility] ([id number]) Medical [place] CBC WITH DIFF 2020-12-10 01:44:00 Johnnie Olivarez [facility] URINALYSIS 2020-12-10 01:44:00 Johnnie Olivarez [facility] NOTICE OF PRIVACY 2020-12-09 23:56:35 Doctor Unassigned, No [facility] [place] [facility] Name Medical Branch CONSENT/REFUSAL FOR 2020-12-09 23:55:46 Doctor Unassigned, No [facility] [place] DIAGNOS[facility] AND Name Medical Branch TREATMENT CONSENT/REFUSAL FOR 2020-06-16 20:19:26 Doctor Unassigned, No [facility] [place] DIAGNOSIS AND Name Medical Branch TREATMENT Plan of Care Planned Activity Planned Date Details Comments Source Goal Plan of Care Note [code = 27785-5] Goal Plan of Care Note [code = 47792-2] Goal Plan of Care Note [code = 50070-6] Goal Plan of Care Note [code = 67559-5] Goal Plan of Care Note [code = 41443-9] Goal Plan of Care Note [code = 95930-2] Goal Plan of Care Note [code = 69607-2] Goal Plan of Care Note [code = 88019-3] Goal Plan of Care Note [code = 52679-3] Goal Plan of Care Note [code = 72967-4] Goal Plan of Care Note [code = 74982-4] Goal Plan of Care Note [code = 26804-8] Goal Plan of Care Note [code = 55973-5] Goal Plan of Care Note [code = 24910-0] Goal Plan of Care Note [code = 38954-0] Goal Plan of Care Note [code = 32765-0] Goal Plan of Care Note [code = 43286-2] Goal Plan of Care Note [code = 08840-5] Goal Plan of Care Note [code = 76315-7] Goal Plan of Care Note [code = 29405-2] Goal Plan of Care Note [code = 58383-5] Goal Plan of Care Note [code = 97235-0] Goal Plan of Care Note [code = 20050-1] Goal Plan of Care Note [code = 33844-2] Goal Plan of Care Note [code = 21903-3] Goal Plan of Care Note [code = 74143-5] Encounters Start End Encounter Admission Attending Care Care Encounter Source Date/Time Date/Time Type Type Clinicians Facility Department ID 2022-04-02 2022-04-02 Outpatient [id number] 00:00:00 00:00:00 Visit [id number] 2021-08-24 2021-08-24 [facility] [id number] Univers 18:46:00 21:11:00 QIANA jimenez [facility] 2021-08-24 2021-08-24 Emergency [facility] [id number] Univers 18:46:00 21:11:00 Qiana LOONEY [id number] i ty of [place] 4.2.7.2.686 [facility] [id number] [address] 2021 2021 Emergency [facility] [id number] Univers 15:14:00 16:17:00 Elliot Keisha Looney [id number] i ty of [place] 4.2.7.2.686 [facility] [id number] [address] 2021 2021 Emergency X EVELIO, [facility] ERT [id number] Univers 15:08:00 15:08:00 [facility] 2020-12-09 2020-12-10 Emergency Drever, [facility] [id number] Univers 19:02:00 01:46:00 Amber Looney [id number] ity of [place] 4.2.7.2.686 [facility] [id number] [address] 2020-12-09 2020-12-10 Emergency Drever, [facility] [id number] 19:02:00 01:46:00 Amber Looney [id number] [place] 4.2.7.2.686 [place] [id number] [facility] 2020-12-09 2020-12-09 Emergency X [facility] ERT [id number] Univers 18:54:00 18:54:00 ity [facility] 2020-06-16 2020-06-16 Emergency Valdez, [facility] [id number] Univers 15:24:00 17:00:00 Qiana Looney [id number] i ty of [place] 4.2.7.2.686 [facility] [id number] [address] 2020-06-16 2020-06-16 Emergency Valdez, [facility] [id number] 15:24:00 17:00:00 Qiana Looney [id number] [place] 4.2.7.2.686 [place] [id number] [facility] [facility] 2020-06-16 2020-06-16 Emergency [facility] ERT [id number] [facility] 15:18:00 [facility]18[facility] 2020-01-27 2020-01-27 Emergency X [facility] ERT [id number] [facility] 14:14:00 14:14:00 [facility] Results Test Description Test Time Test Comments Results Result Comments Source PAP TEST, THINPREP, IMAGED 2021-11-06 09:47:06 Test Item Value Reference Range Interpretation Comme nts SOURCE: (test code = Cervical/Endocervical 8001) SLIDES: (test code = 1 8011) LMP: (test code = 10/27/2021 8021) SPECIMEN ADEQUACY: (NOTE) Martín west for (test code = 34578) evaluati on. Endocervical cells/transform ation zone component prese nt. INTERPRETATION: NILM/NO EPITH. ABNORMALITY;SEE (test code = 02477) BELOW -------- NEGATIVE FOR INTRAEPITHE LIAL LESION OR MALIGNANCY ( NILM) -- TOUR DRIVER: Nery Macedo (test code = 8101) LOCATION: (test code (NOTE) Specime ns processed and = 38078) interpreted at [facility], [address] [place] [address], Phone: , CLIA: [id number] CPT: (test code = (NOTE) 41260 UNLE SS OTHERWISE 8140) INDICATED, COMP UTER AIDED AND CYTOTECHNOL OGIST SCREENING PERFO RMED. The Pap test is a scree sekou test with an inheren t, but low probability of error. Your patient should be reminded to consult you immediately if she experien mira any suspicious sign s or symptoms, regar dless of her Pap test result . An alternate repor t format containing imag es or consolidated pr ior Pap history is avai lable as applicable. UNL ESS OTHERWISE INDICATED, ALL TESTING PERFORMED [facility]. [address] [place] [address] LABORATOR Y DIRECTOR: Anjum YINIA NUMBER [id number] CAP ACCREDITATION N O. PAP TEST, THINPREP, [id number] 00:00:00 Test Item Value Reference Range Interpretation Comments SOURCE: (test code = Cervical/Endocervical 8001) SLIDES: (test code = 1 8011) LMP: (test code = 8021) 10/27/2021 SPECIMEN ADEQUACY: (NOTE) (test code = 66892) INTERPRETATION: (test NILM/NO EPITH. code = 59485) ABNORMALITY;SEE BELOW TOUR DRIVER: (test Nery [place] code = 8101) LOCATION: (test code = (NOTE) 33246) CPT: (test code = 8140) (NOTE) PAP TEST, THINPREP, [id number] 00:00:00 Test Item Value Reference Range Interpretation Comments SOURCE: (test code = Cervical/Endocervical 8001) SLIDES: (test code = 1 8011) LMP: (test code = 8021) 10/27/2021 SPECIMEN ADEQUACY: (NOTE) (test code = 48414) INTERPRETATION: (test NILM/NO EPITH. code = 71891) ABNORMALITY;SEE BELOW TOUR DRIVER: (test Nery [place] code = 8101) LOCATION: (test code = (NOTE) 82375) CPT: (test code = 8140) (NOTE) VAGINAL PATHOGENS DNA [id number] 14:50:28 Test Item Value Reference Range Interpretation Comments DAMIR SPECIES (test NEGATIVE NEGATIVE code = ) G. VAGINALIS (test NEGATIVE NEGATIVE code = 42839) T. VAGINALIS (test NEGATIVE NEGATIVE UNLESS O THERWISE code = 20608) INDICATED, ALL TESTING PERFORMED [facility] [address] [place] [address] 4 LABORATORY DIRE CTOR: Anjum YINIA NUMBER [id number] CAP ACCREDITATI ON NO. [id number] 06:56:09 Test Item Value Reference Range Interpretation Comments RPR RESULT (test code = NON-REACTIVE NON-REACTIVE 3501) RPR TITER (test code = 3500) NOT INDIC. TITER NOT INDIC. HIV 1/2 4TH GEN, RFLX [id number] 05:54:17 Test Item Value Reference Range Interpretation Comments HIV 1/2 4TH GEN, RFLX CONF (test NON-REACTIVE NON-REACTIVE code = 3514) HEPATITIS PANEL, [id number] 05:54:17 Test Item Value Reference Range Interpretation Comments HEPATITIS A IgM (test NON-REACTIVE NON-REACTIVE code = 71767) HEPATITIS B CORE IgM NON-REACTIVE NON-REACTIVE (test code = 4644) HEPATITIS B SURF AG NON-REACTIVE NON-REACTIVE (test code = 2739) HEPATITIS C ANTIBODY NON-REACTIVE NON-REACTIVE (test code = 4675) INTERPRETATION (NOTE) Hepatitis A HEPATITIS A: (test code sero logy shows no = 2552) evidence of acu te hepatitis A. INTERPRETATION (NOTE) Hepatitis B HEPATITIS B: (test code sero logy shows no = 70545) evidence of acu te hepatitis B and no indication of exposure to hepatitis B vir us in the previous jie eight months. INTERPRETATION (NOTE) Hepatitis C HEPATITIS C: (test code sero logy shows no = 42539) evidence of exposure to hepatitisC viru s at this time. I t can take up to 12 months after exposure tothe hepatitis C vir us for antibodies to become detectab le in the blood in certain patient s. HIV AB/AG COMBO RFLX [id number] 00:00:00 Test Item Value Reference Range Interpretation Comments HIV 1/2 4TH GEN, RFLX CONF (test NON-REACTIVE code = 3514) HIV AB/AG COMBO RFLX [id number] 00:00:00 Test Item Value Reference Range Interpretation Comments HIV 1/2 4TH GEN, RFLX CONF (test NON-REACTIVE code = 3514) ACUTE HEPATITIS [id number] 00:00:00 Test Item Value Reference Range Interpretation Comments HEPATITIS A IgM (test code = NON-REACTIVE 09337) HEPATITIS B CORE IgM (test code NON-REACTIVE = 4644) HEPATITIS B SURF AG (test code = NON-REACTIVE 2739) HEPATITIS C ANTIBODY (test code NON-REACTIVE = 4675) INTERPRETATION HEPATITIS A: (NOTE) (test code = 2552) INTERPRETATION HEPATITIS B: (NOTE) (test code = 80276) INTERPRETATION HEPATITIS C: (NOTE) (test code = 52499) ACUTE HEPATITIS [id number] 00:00:00 Test Item Value Reference Range Interpretation Comments HEPATITIS A IgM (test code = NON-REACTIVE 48502) HEPATITIS B CORE IgM (test code NON-REACTIVE = 4644) HEPATITIS B SURF AG (test code = NON-REACTIVE 3409) HEPATITIS C ANTIBODY (test code NON-REACTIVE = 4638) INTERPRETATION HEPATITIS A: (NOTE) (test code = 2552) INTERPRETATION HEPATITIS B: (NOTE) (test code = 30779) INTERPRETATION HEPATITIS C: (NOTE) (test code = 99390) [id number] 00:00:00 Test Item Value Reference Range Interpretation Comments RPR RESULT (test code = NON-REACTIVE 3501) RPR TITER (test code = 3500) NOT INDIC. TITER [id number] 00:00:00 Test Item Value Reference Range Interpretation Comments RPR RESULT (test code = NON-REACTIVE 3501) RPR TITER (test code = 3500) NOT INDIC. TITER [id number] 00:00:00 Test Item Value Reference Range Interpretation Comments RPR RESULT (test code = NON-REACTIVE 3501) RPR TITER (test code = 3500) NOT INDIC. TITER VAGINAL PATHOGENS DNA [id number] 00:00:00 Test Item Value Reference Range Interpretation Comments DAMIR SPECIES (test code = 30659) NEGATIVE G. VAGINALIS (test code = 14358) NEGATIVE T. VAGINALIS (test code = 91777) NEGATIVE VAGINAL PATHOGENS DNA [id number] 00:00:00 Test Item Value Reference Range Interpretation Comments DAMIR SPECIES (test code = 05884) NEGATIVE G. VAGINALIS (test code = 85236) NEGATIVE T. VAGINALIS (test code = 33643) NEGATIVE SARS-CoV-2 (COVID-19), RT-PCR/[id number] 13:12:43 Test Item Value Reference Interpretation Comments Range SARS-CoV-2 NEGATIVE SEE NOTE SARS-CoV-2 RNA NOT INTERPRETATION DETECTEDNegat fidencio (test code = 23202) results do not preclude SARS-C oV-2 infection and s hould pete used as t he sole basis for patie nt management deci sions. Negativeresults must be combined wit h clinical observ ations, patient history ,and epidemiological information. Op timum specimen types and timingfor peak viral levels during infections caus ed by SARS-CoV-2 have darby morales. Collection of m ultiple specimens or ty pes ofspecimens may be necessary to de tect virus. Improper specimencollect ion and handling, seque nce variability und er primers/probes, or organism presen t below the limit of de tection may lead to falsenegative r esults. Positive and ne gative predictive valu es oftesting are h ighly dependent on prevalence. Fal se negative testre sults are more likely when prevalence is h igh. SOURCE (test code = NASOPHARYNGEAL Note: [place] [address]) Ronit Jagdeep Brooke l-Time RT-PCR. The exp ected result or refer ence range is NEGATI VE (Not Detected). For more information reg arding COVID-19 testin g to include clinicalinforma tion, methodology det ail, intended use, F DA authorization andrecommended fact sheets for krissy ents or healthcare prov iders, see RF Controls Announcement: SARS-CoV-2 (COV ID-19) by NAAT at URL below (note,fact shee ts are provided by met hod given in report:https:// www.[employer].com/clinic ians/cl ient-communicat ions/ Alternatively, see downloadable PD F fact sheet at:https://www. leemail/COVID-19-R T-PCR UNLESS OTHERWIS E INDICATED, ALL TESTING PERFORMED [facility], [facility]. [address] [place] [id number] BEENA PARVEZ DIRECTOR: ELIF MADISON M.D. CLIA NUMBER [id number] CAP ACCREDITATION N O. [id number] SARS-CoV-2 (COVID-19) by RT-PCR (HIGH RISK)2021-09-16 00:00:00 Test Item Value Reference Range Interpretation Comments SARS-CoV-2 INTERPRETATION NEGATIVE (test code = 49594) SOURCE (test code = 03313) NASOPHARYNGEAL SARS-CoV-2 (COVID-19) by RT-PCR (HIGH RISK)2021-09-16 00:00:00 Test Item Value Reference Range Interpretation Comments SARS-CoV-2 INTERPRETATION NEGATIVE (test code = 14930) SOURCE (test code = 91845) NASOPHARYNGEAL SARS-CoV-2 (COVID-19), RT-PCR/[id number] 13:37:12 Test Item Value Reference Interpretation Comments Range SARS-CoV-2 PRESUMPTIVE SEE NOTE A NOTE: PRESUMPT FIDENCIO INTERPRETATION POSITIVE POSITIVE RESU LTS (test code = 56763) ARE MOST CONSISTENT WITH SARS-COV-2 NEAR THE LIMIT OF DETECTION OF TH E ASSAY. OTHER UNCOMMON POSSIBLECAUSES ARE A MUTATION IN O NE OF THE TARGET REGIONS, INFECT ION WITHANOTHER SARBECOVIRUS OR LABORATORY ISSU ES. CORRELATE WITH CLINICALHISTORY AND EPIDEMIOLOGIC FINDINGS. SOURCE (test code = NASOPHARYNGEAL Note: Methodology 11055) is Ronit Jagdeep Real-Time RT-PC R. The expected re sult or reference ra nge is NEGATIVE (No t Detected). For more information regarding COVID -19 testing to incl ude clinicalinforma tion , methodology detail, intende d use, FDA authorization andrecommended fact sheets for krissy ents or healthcare providers, see NewTest Announcement: SARS-CoV-2 (COVID-19) by N AAT at URL below (note,fact shee ts are provided by method given in report:https:// www. Tr[employer]i ans/client-comm unic ations/ Alternatively, see downloadable PD F fact sheet at:https://www. Tus reQRdos/COVID-1 9-RT -PCR Note: Methodology is Ronit Jagdeep Real-Time RT-PC R. The expected re sult or reference ra nge is NEGATIVE (No t Detected). For more information regarding COVID -19 testing to incl ude clinicalinforma tion , methodology detail, intende d use, FDA authorization andrecommended fact sheets for krissy ents or healthcare providers, see NewTest Announcement: SARS-CoV-2 (COVID-19) by N AAT at URL below (note,fact shee ts are provided by method given in report:https:// wwwLoaded Pocket/EDUSi pam ans/client-comm unic ations/ Alternatively, see downloadable PD F fact sheet at:https://www. Tus reQRdos/COVID-1 9-RT -PCR UNLESS OTHERWISE INDICATED, ALL TESTING PERFORM [facility], [facility]. [address] [place] [address] 15 4 COMPOSITE LAYUP WORKER: ELIF MADISON M.D. CLIA NUMBER [id number] CAP ACCREDITATION N O. [id number] SARS-CoV-2 (COVID-19) by RT-PCR (HIGH RISK)2021-09-09 00:00:00 Test Item Value Reference Range Interpretation Comments SARS-CoV-2 PRESUMPTIVE POSITIVE INTERPRETATION (test code = 79327) SOURCE (test code = NASOPHARYNGEAL 96302) SARS-CoV-2 (COVID-19) by RT-PCR (HIGH RISK)2021-09-09 00:00:00 Test Item Value Reference Range Interpretation Comments SARS-CoV-2 PRESUMPTIVE POSITIVE INTERPRETATION (test code = 64217) SOURCE (test code = NASOPHARYNGEAL 89828) BASIC METABOLIC PANEL (NA, K, CL, CO2, GLUCOSE, BUN, CREATININE, CA)2021-08-25 01:45:53 Test Item Value Reference Range Interpretation Comments NA (test code = 136 mmol/L 135-145 6227826819) K (test code = 4.1 mmol/L 3.5-5.0 6996059351) CL (test code = 102 mmol/L 98-108 9753060220) CO2 TOTAL (test code = 29 mmol/L 23-31 0317209623) AGAP (test code = 2-16 5688451221) BUN (test code = 9 mg/dL 7-23 6318871448) GLUCOSE (test code = 92 mg/dL 70-110 9093606278) CREATININE (test code = 0.54 mg/dL 0.50-1.04 9154982962) CALCIUM (test code = 8.5 mg/dL 8.6-10.6 L 7417881868) eGFR (test code = mL/min/1.73m2 9762608320) EMERALD (test code = EMERALD) Association of Glomerular Filtration Rate (GFR) and Staging of Kidney Disease* + --+ --+ ------+| GFR (mL/min/1.73 m2) ?| With Kidney Damage ?| ?Without Kidney Damage+ --------+ --------+ +| ?>90 ?| ?Stage one ?| ? Normal ?+ ---+ ---+ -------+| ?60-89 ?| ?Stage two ?| ? Decreased GFR ? + --+ --+ ------+| ?30-59 ?| ?Stage three ?| ? Stage three ? + --+ --+ ------+| ?15-29 ?| ?Stage four ? | ? Stage four ?+ ---+ ---+ -------+| ?<15 (or dialysis) ? ?| ?Stage five ? | ? Stage five ?+ ---+ ---+ -------+ *Each stage assumes the associated GFR level has been in effect for at least three months. ?Stages 1 to 5, with or without kidney disease, indicate chronic kidney disease. Notes: Determination of stages one and two (with eGFR >59mL/min/1.73 m2) requires estimation of kidney damage for at least three months as defined by structural or functional abnormalities of the kidney, manifested by either:Pathological abnormalities or Markers of kidney damage (including abnormalities in the composition of the blood or urine or abnormalities in imaging tests). Lab Interpretation Abnormal (test code = 40037-4) [facility] WITH [id number] 01:34:37 Test Item Value Reference Range Interpretation Comments WBC (test code = See_Comment [Automated 9689-2) message] The sy stem which generated this result transmitted reference range : 4.30 - 11.10 10*3/?L. The reference range was not used to interpret this result as normal/abnormal . RBC (test code = See_Comment [Automated 077-8) message] The sy stem which generated this result transmitted reference range : 3.93 - 5.25 10*6/?L. The reference range was not used to interpret this result as normal/abnormal . HGB (test code = 13.4 g/dL 11.6-15.0 718-7) HCT (test code = 39.8 % 35.7-45.2 4544-3) MCV (test code = 88.8 fL 80.6-95.5 787-2) MCH (test code = 29.9 pg 25.9-32.8 785-6) MCHC (test code = 33.7 g/dL 31.6-35.1 786-4) RDW-SD (test code = 41.3 fL 39.0-49.9 63894-2) RDW-CV (test code = 12.7 % 12.0-15.5 788-0) PLT (test code = See_Comment [Automated 067-3) message] The sy stem which generated this result transmitted reference range : 166 - 358 10*3/ ?L. The reference r lexy was not used to interpret this result as normal/abnormal . MPV (test code = 9.1 fL 9.5-12.9 L 43599-5) NRBC/100 WBC (test See_Comment [Automat ed code = 4102170832) message] The system which generated this result transmitted reference range : 0.0 - 10.0 /100 WBCs. The refer ence range was not u sed to interpret th is result as normal/abnormal . NRBC x10^3 (test code <0.01 See_Comment [Auto mated = 0397446714) message] The s ystem which generated this result transmitted reference range : 10*3/?L. The reference range was not used to interpret this result as normal/abnormal . GRAN MAT (NEUT) % 49.6 % (test code = 770-8) IMM GRAN % (test code 0.20 % = 7971941139) LYMPH % (test code = 39.5 % 736-9) MONO % (test code = 9.0 % 5905-5) EOS % (test code = 1.3 % 713-8) BASO % (test code = 0.4 % 706-2) GRAN MAT x10^3(ANC) 2.36 10*3/uL 1.88-7.09 (test code = 9082561829) IMM GRAN x10^3 (test <0.03 0.00-0.06 code = 9343119359) LYMPH x10^3 (test code 1.88 10*3/uL 1.32-3.29 = 731-0) MONO x10^3 (test code 0.43 10*3/uL 0.33-0.92 = 742-7) EOS x10^3 (test code = 0.06 10*3/uL 0.03-0.39 711-2) BASO x10^3 (test code <0.03 0.01-0.07 = 704-7) Lab Interpretation Abnormal (test code = 16966-1) [facility] [id number] 01:28:00 Test Item Value Reference Range Interpretation Comments POCT PREG (test code = 1605) negative On board controls acceptable with present C Line (test code = 3574) POCT PREG LOT # (test code = 3575) [id number] POCT PREG TEST DATE (test 09/28/2022 code = 3576) Lab Interpretation (test code = Normal 37823-9) [facility]2020-12-10 05:28:49 Test Item Value Reference Range Interpretation Comments AMPHET (test code = Negative Negative 8097422515) Cocaine Metabolite (test Negative Negative code = 8801970984) OPIATES (test code = Presumptive Positive Negative A 5469046858) THC (test code = Negative Negative 5670421142) EMERALD (test code = EMERALD) Urine Drug Cutoff Ranges Amphetamine: ? 1,000 ng/mLCocaine: ? 150 ng/mLOpiates: ? 300 ng/mLCannabinoids: ?50 ng/mL The results are to be used only for medical (i.e., treatment) purposes. Unconfirmed screening results must not be used for non-medical purposes (e.g., employment testing, legal testing). Lab Interpretation (test Abnormal code = 45354-0) [facility] P[facility] WO [id number] 04:25:17No acute intra-abdominal or pelvic abnormality. No genitourinary stones. Complex right ovarian cyst,likely hemorrhagic cyst measuring 3.8 cm RL: 6200AF: 91642 Electronically signed by Kenny Rashid 12/09/2020 11:25 PMPatient name: LORNA BREWER BETHANYB: 1995 25 years EXAMINATION: CT ABDOMEN PELVIS WO CONTRAST Ordering Physician: AMBER CARDOZO CLINICAL HISTORY:Flank pain, kidney stone suspected COMPARISON:None TECHNIQUE:Helical CT images of the abdomen and pelvis were performed fromthe lungbases to the proximal femurs using 5 mm slice thickness without theadministration of IV contr ast. Coronal and sagittal reconstruction wasperformed. Dose reduction technology was utilized.. FINDINGS:Lack of IV contrast decreased sensitivity for detecting and characterizingabnormalities within the abdomen and pelvis. The liver is normal in sizeand morphology without discrete lesions. No calcified gallstones. Thespleen is normal. No pancreatic lesions or inflammatory changes. Theadrenal glands are normal. Both kidneys are symmetric in size without discrete lesions. No stones orhydronephrosis. Urinary bladder is grossly normal. Complex cyst in theright ovary measures 3.8 cm. No hiatal hernia or esophageal thickening. No discrete gastric thickeningor surrounding inflammatory changes. The largeand small bowel are normalin caliber and wall thickness. The appendix is normal. No free fluid or abscess. No adenopathy. Aorta is normal in caliber. No acute osseous abnormality. No acute process in the subcutaneous softtissues. The lung bases are clear. [facility], Radiant Results Inft User - 12/09/2020 11:26 PM CDTPatient name: LORNA BREWER NIETODOB: 1995 25 years EXAMINATION: CT ABDOMEN PELVIS WO CONTRASTOrdering Physician: AMBER CARDOZO CLINICAL HISTORY:Flank pain, kidney stone suspected COMPARISON:NoneTECHNIQUE:Helical CT images of the abdomen and pelvis were performed from the lungbases to the proximal femurs using 5 mm slice thickness without theadministration of IV contrast. Coronaland sagittal reconstruction wasperformed. Dose reduction technology was utilized..FINDINGS:Lack of IV contrast decreased sensitivity for detecting and characterizingabnormalities within the abdomen andpelvis. The liver is normal in sizeand morphology without discrete lesions. No calcified gallstones.Thespleen is normal. No pancreatic lesions or inflammatory changes. Theadrenal glands are normal.Both kidneys are symmetric in size without discrete lesions. No stones orhydronephrosis. Urinary bladderis grossly normal. Complex cyst in theright ovary measures 3.8 cm.No hiatal hernia or esophageal thic kening. No discrete gastric thickeningor surrounding inflammatory changes. The large and small bowelare normalin caliber and wall thickness. The appendix is normal.No free fluid or abscess. No adenopathy. Aorta is normal in caliber.No acute osseous abnormality. No acute process in the subcutaneous softtissues. The lung bases are clear.IMPRESSIONNo acute intra-abdominal or pelvic abnormality. No genitourinary stones.Complex right ovarian cyst, likely hemorrhagic cyst measuring 3.8 cmRL: 6200AFC: 91882 [facility] HospitalUrinalysis2021-04-14 02:12:28 Test Item Value Reference Range Interpretation Comments APPEARANCE (test code = Hazy Clear A 7087033116) COLOR (test code = Yellow Yellow 2582666576) PH (test code = 4.8-8.0 4958732514) SP GRAVITY (test code = 1.003-1.030 0209526428) GLU U QUAL (test code = Normal Normal 8549438047) BLOOD (test code = Negative Negative 8667959614) KETONES (test code = Negative Negative 9384707645) PROTEIN (test code = Negative Negative 2887-8) UROBILIN (test code = 4.0 mg/dL Normal A 6265874681) BILIRUBIN (test code = Negative Negative 6095467480) NITRITE (test code = Negative Negative 9610587413) LEUK HOLLEY (test code = Negative Negative 8449747984) RBC/HPF (test code = See_Comment H [Autom ated message] 2264403355) The system Trustlook generated this result transmit héctor reference range : 0 - 3 HPF. The refe rence range was not u sed to interpret th is result as normal/abnormal . WBC/HPF (test code = See_Comment [Autom ated message] 7787608978) The system [employer] generated this result transmit héctor reference range : 0 - 5 HPF. The refe rence range was not u sed to interpret th is result as normal/abnormal . BACTERIA (test code = Negative Negative 4757191783) MUCOUS (test code = Slight Negative LPF A 9042043203) SQ EPITH (test code = HPF 6405249210) YEAST BUD (test code = See_Comment H [Aut omated message] 9913876610) The system [employer] generated this result transmit héctor reference range : <=1 HPF. The refere nce range was not u sed to interpret th is result as normal/abnormal . Lab Interpretation (test Abnormal code = 91996-7) [facility] HospitalComplete Metabolic [id number] 02:09:13 Test Item Value Reference Range Interpretation Comments NA (test code = 137 mmol/L 135-145 2454099871) K (test code = 3.7 mmol/L 3.5-5.0 3090857857) CL (test code = 103 mmol/L 98-108 0152829168) CO2 TOTAL (test code 26 mmol/L 23-31 = 9312476365) AGAP (test code = 2-16 4280560229) BUN (test code = 12 mg/dL 7-23 5554921216) GLUCOSE (test code = 92 mg/dL 70-110 9421795886) CREATININE (test code 0.62 mg/dL 0.50-1.04 = 0358868566) TOTAL BILI (test code 0.4 mg/dL 0.1-1.1 = 0722074384) CALCIUM (test code = 8.9 mg/dL 8.6-10.6 2515785089) T PROTEIN (test code 7.1 g/dL 6.3-8.2 = 2847372165) ALBUMIN (test code = 4.4 g/dL 3.5-5.0 7986548356) ALK PHOS (test code = 79 U/L 34-122 5471719683) ALTv (test code = 16 U/L 5-35 1742-6) AST(SGOT) (test code 23 U/L 13-40 = 8800809953) eGFR (test code = mL/min/1.73m2 8944499438) EMERALD (test code = EMERALD) Association of Glomerular Filtration Rate (GFR) and Staging of Kidney Disease* + + +- +| GFR (mL/min/1.73 m2) ?| With Kidney Damage ?| ?Without Kidney Damage+ ------+ ----+ ------+| ?>90 ?| ?Stage one ?| ? Normal ?+ -+ + -+| ?60-89 ?| ?Stage two ?| ? Decreased GFR ? + + +- +| ?30-59 ?| ?Stage three ?| ? Stage three ? + + +- +| ?15-29 ?| ?Stage four ? | ? Stage four ?+ -+ + -+| ?<15 (or dialysis) ? ?| ?Stage five ? | ? Stage five ?+ -+ + -+ *Each stage assumes the associated GFR level has been in effect for at least three months. ?Stages 1 to 5, with or without kidney disease, indicate chronic kidney disease. Notes: Determination of stages one and two (with eGFR >59mL/min/1.73 m2) requires estimation of kidney damage for at least three months as defined by structural or functional abnormalities of the kidney, manifested by either:Pathological abnormalities or Markers of kidney damage (including abnormalities in the composition of the blood or urine or abnormalities in imaging tests). [facility] HospitalLip[facility], [id number] 02:08:38 Test Item Value Reference Range Interpretation Comments LIPASE (test code = 2324337401) 53 U/L 0-220 Lab Interpretation (test code = Normal 98456-9) [facility] HospitalCBC with [id number] 02:00:16 Test Item Value Reference Range Interpretation Comments WBC (test code = See_Comment [Automated message] 1890-2) The system [employer]look generated this result transmitted ref erence range: 4.30 - 1 1.10 10*3/?L. The re ference range was not u sed to interpret this result as normal/abnor mal. RBC (test code = See_Comment [Automated message] 729-8) The system [employer] generated this result transmitted ref erence range: 3.93 - 5 .25 10*6/?L. The re ference range was not u sed to interpret this result as normal/abnor mal. HGB (test code = 13.4 g/dL 11.6-15.0 718-7) HCT (test code = 39.9 % 35.7-45.2 4544-3) MCV (test code = 89.1 fL 80.6-95.5 787-2) MCH (test code = 29.9 pg 25.9-32.8 785-6) MCHC (test code = 33.6 g/dL 31.6-35.1 786-4) RDW-SD (test code 42.6 fL 39.0-49.9 = 43001-2) RDW-CV (test code 13.2 % 12.0-15.5 = 788-0) PLT (test code = See_Comment [Automated message] 497-3) The system [employer] generated this result transmitted ref erence range: 166 - 35 8 10*3/?L. The re ference range was not u sed to interpret this result as normal/abnor mal. MPV (test code = 9.5 fL 9.5-12.9 36192-9) NRBC/100 WBC (test See_Comment [Automat ed message] code = 5095496807) The syste m which generated this result transmitted ref erence range: 0.0 - 10 .0 /100 WBCs. The refer ence range was not u sed to interpret this result as normal/abnor mal. NRBC x10^3 (test <0.01 See_Comment [Automated message] code = 1430888903) The syste m which generated this result transmitted ref erence range: 10*3/?L. The reference range was not used to interpr et this result as normal/abnormal . GRAN MAT (NEUT) % 59.6 % (test code = 770-8) IMM GRAN % (test 0.30 % code = 5152382319) LYMPH % (test code 31.8 % = 736-9) MONO % (test code 6.4 % = 5905-5) EOS % (test code = 1.4 % 713-8) BASO % (test code 0.5 % = 706-2) GRAN MAT 5.15 10*3/uL 1.88-7.09 x10^3(ANC) (test code = 3586019876) IMM GRAN x10^3 0.03 10*3/uL 0.00-0.06 (test code = 7683166870) LYMPH x10^3 (test 2.75 10*3/uL 1.32-3.29 code = 731-0) MONO x10^3 (test 0.55 10*3/uL 0.33-0.92 code = 742-7) EOS x10^3 (test 0.12 10*3/uL 0.03-0.39 code = 711-2) BASO x10^3 (test 0.04 10*3/uL 0.01-0.07 code = 704-7) [id number] Test Item Value Reference Range Interpretation Comments POCT PREG (test code = 1605) negative On board controls acceptable with C present Line (test code = 3574) Lab Interpretation (test code = Normal 97060-4) [facility] by RT-PCR (HIGH RISK) 2020-12-03 00:00:00 Test Item Value Reference Range Interpretation Comments SARS-CoV-2 INTERPRETATION (test NEGATIVE code = 68044) SOURCE (test code = 96617) NOT SPECIFIED SARS-CoV-2 (COVID-19) by RT-PCR (HIGH RISK)2020-12-03 00:00:00 Test Item Value Reference Range Interpretation Comments SARS-CoV-2 INTERPRETATION (test NEGATIVE code = 71524) SOURCE (test code = 93441) NOT SPECIFIED PAP TEST, THINPREP, [id number] 00:00:00 Test Item Value Reference Range Interpretation Comments SOURCE: (test code = Cervical/Endocervical 8001) SLIDES: (test code = 1 8011) LMP: (test code = 03/16/17 8021) SPECIMEN ADEQUACY: (NOTE) (test code = 53400) INTERPRETATION: (test NO EPITHELIAL code = 68665) ABNORMALITY SEE BELOW TOUR DRIVER: LITO Skaggs(ASCP) (test code = 8101) QC TECHNOLOGIST: Jg Humphrey (test code = 8111) CT(ASCP)IAC LOCATION: (test code (NOTE) = 70185) CPT: (test code = (NOTE) 8140) PAP TEST, THINPREP, [id number] 00:00:00 Test Item Value Reference Range Interpretation Comments SOURCE: (test code = Cervical/Endocervical 8001) SLIDES: (test code = 1 8011) LMP: (test code = 03/16/17 8021) SPECIMEN ADEQUACY: (NOTE) (test code = 87913) INTERPRETATION: (test NO EPITHELIAL code = 70507) ABNORMALITY SEE BELOW TOUR DRIVER: LITO Skaggs(ASCP) (test code = 8101) QC TECHNOLOGIST: Jg Humphrey (test code = 8111) CT(ASCP)IAC LOCATION: (test code (NOTE) = 48691) CPT: (test code = (NOTE) 8140) GC AND CHLAMYDIA AMPLIFIED, [id number] 00:00:00 Test Item Value Reference Range Interpretation Comments GONORRHEA, TMA (test code = 66677) NEGATIVE CHLAMYDIA, TMA (test code = 89835) NEGATIVE GC AND CHLAMYDIA AMPLIFIED, [id number] 00:00:00 Test Item Value Reference Range Interpretation Comments GONORRHEA, TMA (test code = 57712) NEGATIVE CHLAMYDIA, TMA (test code = 67986) NEGATIVE HIV AB/AG COMBO RFLX [id number] 00:00:00 Test Item Value Reference Range Interpretation Comments HIV 1/2 4TH GEN, RFLX CONF (test NON-REACTIVE code = 3514) HIV AB/AG COMBO RFLX [id number] 00:00:00 Test Item Value Reference Range Interpretation Comments HIV 1/2 4TH GEN, RFLX CONF (test NON-REACTIVE code = 3514) [id number] 00:00:00 Test Item Value Reference Range Interpretation Comments RPR RESULT (test code = NON-REACTIVE 3501) RPR TITER (test code = 3500) NOT INDIC. TITER [id number] 00:00:00 Test Item Value Reference Range Interpretation Comments RPR RESULT (test code = NON-REACTIVE 3501) RPR TITER (test code = 3500) NOT INDIC. TITER [id number] 00:00:00 Test Item Value Reference Range Interpretation Comments RPR RESULT (test code = NON-REACTIVE 3501) RPR TITER (test code = 3500) NOT INDIC. TITER ACUTE HEPATITIS [id number] 00:00:00 Test Item Value Reference Range Interpretation Comments HEPATITIS A IgM (test code = NON-REACTIVE 21534) HEPATITIS B CORE IgM (test code NON-REACTIVE = 4644) HEPATITIS B SURF AG (test code = NON-REACTIVE 2739) HEPATITIS C ANTIBODY (test code NON-REACTIVE = 4675) INTERPRETATION HEPATITIS A: (NOTE) (test code = 2552) INTERPRETATION HEPATITIS B: (NOTE) (test code = 57504) INTERPRETATION HEPATITIS C: (NOTE) (test code = 19197) ACUTE HEPATITIS [id number] 00:00:00 Test Item Value Reference Range Interpretation Comments HEPATITIS A IgM (test code = NON-REACTIVE 46991) HEPATITIS B CORE IgM (test code NON-REACTIVE = 4644) HEPATITIS B SURF AG (test code = NON-REACTIVE 2739) HEPATITIS C ANTIBODY (test code NON-REACTIVE = 4675) INTERPRETATION HEPATITIS A: (NOTE) (test code = 2552) INTERPRETATION HEPATITIS B: (NOTE) (test code = 25957) INTERPRETATION HEPATITIS C: (NOTE) (test code = 01058)"
[2022-09-03] MEDS ORDERED: HYDROCODONE/APAP 5/325 MG TAB ONE (19:52)
--- NOTE | 2022-09-03 21:03 | RAD REPORT ---
EXAM DESCRIPTION: RAD - Wrist Left 3 View - 09/03/2022 7:56 pm CLINICAL HISTORY: PAIN COMPARISON: No comparisons FINDINGS: No fracture is identified. There is no dislocation or periosteal reaction noted. No foreig n body or other soft tissue abnormality. IMPRESSION: Negative left wrist examination.
--- NOTE | 2022-09-03 21:12 | EDPHYS ---
Physician Documentation [facility] Name: Lilia Nunez Age: 27 yrs Sex: Female : 1995 Arrival Date: 09/03/2022 Time: 18:10 Bed Treatment Private MD: ED Physician Aly Zarate HPI: 09/03 21:09 This 27 yrs old Female presents to ER via Ambulatory with complaints of Wrist kb Pain. 21:09 The patient or guardian reports decreased range of motion, pain, tenderness. The kb complaints affect the left wrist diffusely. Context: The problem was sustained at home, resulted from an unknown cause. Onset: The symptoms/episode began/occurred yesterday. Modifying factors: The symptoms are alleviated by nothing, the symptoms are aggravated by movement. Associated signs and symptoms: The patient has no apparent associated signs or symptoms. The patient has experienced similar episodes in the past, a few times. The patient has not recently seen a physician. Patient reports left wrist pain that started yesterday and has been ongoing. Reports she is had this pain in the past but is never lasted this long. 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 Denies injury or trauma.. 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 - Social history:: Smoking status: Patient denies any tobacco usage or history of. ROS: 21:07 Constitutional: Negative for fever, chills, and weight loss. kb 21:07 MS/extremity: Positive for pain, tenderness, of the left wrist. 21:07 All other systems are negative. Exam: 21:07 Constitutional: This is a well developed, well nourished patient who is awake, alert, kb and in no acute distress. Head/Face: Normocephalic, atraumatic. ENT: Moist Mucous membranes Cardiovascular: Regular rate and rhythm with a normal S1 and S2. No gallops, murmurs, or rubs. No pulse deficits. Respiratory: Respirations even and unlabored. No increased work of breathing. Talking in full sentences Skin: Warm, dry with normal turgor. Normal color. Neuro: Awake and alert, GCS 15, oriented to person, place, time, and situation. Moves all extremities. Normal gait. Psych: Awake, alert, with orientation to person, place and time. Behavior, mood, and affect are within normal limits. 21:07 Musculoskeletal/extremity: Extremities: grossly normal except: noted in the left wrist: decreased ROM, pain, tenderness, ROM: limited active range of motion due to pain, in the left wrist, Circulation is intact in all extremities. Sensation intact. Vital Signs: 18:32 BP 113 / 81; Pulse 73; Resp 18; Temp 98; Pulse Ox 100% ; Weight 80.74 kg; Height 5 ft. kb3 2 in. (157.48 cm); Pain 9/10; 20:32 BP 141 / 98; Pulse 84; Resp 20; Pulse Ox 100% on R/A; em6 18:32 Body Mass Index 32.56 (80.74 kg, 157.48 cm) kb3 MDM: 18:12 Patient medically screened. snw 21:08 Differential diagnosis: closed fracture, tendonitis, Sprain. Data reviewed: vital kb signs, nurses notes. Data interpreted: Pulse oximetry: on room air is 100 %. Interpretation: normal. Counseling: I had a detailed discussion with the patient and/or guardian regarding: the historical points, exam findings, and any diagnostic results supporting the discharge/admit diagnosis, radiology results, the need for outpatient follow up, a orthopedic surgeon, to return to the emergency department if symptoms worsen or persist or if there are any questions or concerns that arise at home. ED course: Independent interpretation of the following tests in the emergency department: X-ray left wrist reveals no acute findings I considered the following discharge prescriptions or medication management in the emergency department: Diclofenac prescribed; History obtained from: Patient. 09/03 18:38 Order name: Wrist Left (3 View) XRAY; Complete Time: 21:06 kb3 09/03 21:06 Order name: Wrist Splint; Complete Time: 21:19 kb Administered Medications: 21:07 Drug: [place] (HYDROcodone-acetaminophen) 5 mg-325 mg 1 tabs Route: PO; kb 21:19 Follow up: Response: No adverse reaction; RASS: Alert and Calm (0) em6 Disposition Summary: 09/03/22 21:11 Discharge Ordered Location: Home kb Condition: Stable kb Diagnosis - Pain in left wrist kb Followup: kb - With: Emergency Department - When: As needed - Reason: Worsening of condition Followup: kb - With: Private Physician - When: 2 - 3 days - Reason: Recheck today's complaints, Continuance of care, Re-evaluation by your physician Discharge Instructions: - Discharge Summary Sheet kb - Musculoskeletal Pain kb - Wrist Pain, Adult, [id number] kb Forms: - Medication Reconciliation Form kb - Work release form kb - Thank You Letter kb - Antibiotic Education kb - Prescription Opioid Use kb Prescriptions: - Diclofenac Sodium 75 mg Oral tablet,delayed release (DR/EC) - take 1 tablet by ORAL route 2 times per day As needed; 30 tablet; Refills: 0, kb Product Selection Permitted Addendum: 09/05/2022 12:36 Co-signature as Attending Physician, Aly Zarate DO I was immediately available on-site m s3 in the Emergency Department for consultation in the care of the patient.. Signatures: Dispatcher [employer] EDMS Dodie Bruce, MACHINE HEEL BUILDER-C MACHINE HEEL BUILDER-Ckb Kellie Benitez MACHINE HEEL BUILDER-C MACHINE HEEL BUILDER-Csnw Aly Zarate DO DO ms3 Beatriz Alicea, RN RN kb3 Jyotsna Gillespie RN em6
--- NOTE | 2022-09-03 21:12 | ER ---
Nurse's Notes [facility] Name: Lilia Nunez Age: 27 yrs Sex: Female : 1995 Arrival Date: 09/03/2022 Time: 18:10 Bed Treatment Private MD: Diagnosis: Pain in left wrist Presentation: 09/03 18:32 Chief complaint: Patient states: spontaneous onset of left ulnar wrist pain since last kb3 night. Denies injury. Coronavirus screen: Vaccine status: Patient reports receiving the 2nd dose of the covid vaccine. Client denies travel out of the [place] in the last 14 days. Ebola Screen: Patient negative for fever greater than or equal to 101.5 degrees Fahrenheit, and additional compatible Ebola Virus Disease symptoms Patient denies exposure to infectious person. Patient denies travel to an Ebola-affected area in the 21 days before illness onset. Initial Sepsis Screen: Does the patient meet any 2 criteria? No. Patient's initial sepsis screen is negative. Does the patient have a suspected source of infection? No. Patient's initial sepsis screen is negative. Risk Assessment: Do you want to hurt yourself or someone else? Patient reports no desire to harm self or others. Onset of symptoms was September 02, 2021. 18:32 Method Of Arrival: Ambulatory kb3 18:32 Acuity: TERRY 4 kb3 Triage Assessment: 18:35 General: Appears in no apparent distress. Behavior is calm, cooperative. Pain: kb3 Complains of pain in left wrist Pain does not radiate. Pain currently is 9 out of 10 on a pain scale. Quality of pain is described as throbbing. 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 - Social history:: Smoking status: Patient denies any tobacco usage or history of. Screenin:32 [facility] ED Fall Risk Assessment (Adult) History of falling in the last 3 months, em6 including since admission No falls in past 3 months (0 pts) Confusion or Disorientation No (0 pts) Intoxicated or Sedated No (0 pts) Impaired Gait No (0 pts) Mobility Assist Device Used No (0 pt) Altered Elimination No (0 pt) Score/Fall Risk Level 0 - 2 = Low Risk Oriented to surroundings, Maintained a safe environment, Educated pt \T\ family on fall prevention, incl call for assistance when getting out of bed, Assessed \T\ reinforced patient's understanding of fall precautions, Provided non-skid footwear, Hourly rounding (assess needs \T\ fall precautionary measures) done, Used ambulatory aids as needed (educated on \T\ assisted with), Used gait belt as appropriate. Abuse screen: Denies threats or abuse. Nutritional screening: No deficits noted. Tuberculosis screening: No symptoms or risk factors identified. Assessment: 20:33 General: Appears in no apparent distress. Behavior is cooperative. Pain: Complains of em6 pain in left arm and left wrist Pain does not radiate. Pain currently is 6 out of 10 on a pain scale. Quality of pain is described as pressure, sharp. Neuro: Lang Agitation-Sedation Scale (RASS): 0 - Alert and Calm. Cardiovascular: Patient's skin is warm and dry. Respiratory: Airway is patent Respiratory effort is even, unlabored, Respiratory pattern is regular, symmetrical. GI: No signs and/or symptoms were reported involving the gastrointestinal system. : No signs and/or symptoms were reported regarding the genitourinary system. EENT: No signs and/or symptoms were reported regarding the EENT system. Derm: No signs and/or symptoms reported regarding the dermatologic system. Musculoskeletal: Circulation, motion, and sensation intact. Range of motion: intact in all extremities. Vital Signs: 18:32 BP 113 / 81; Pulse 73; Resp 18; Temp 98; Pulse Ox 100% ; Weight 80.74 kg; Height 5 ft. kb3 2 in. (157.48 cm); Pain 9/10; 20:32 BP 141 / 98; Pulse 84; Resp 20; Pulse Ox 100% on R/A; em6 18:32 Body Mass Index 32.56 (80.74 kg, 157.48 cm) kb3 ED Course: 18:10 Patient arrived in ED. as 18:11 Kellie Benitez FNP-C is PHCP. snw 18:11 Aly Zarate DO is Attending Physician. snw 18:35 Triage completed. kb3 18:35 Arm band placed on right wrist. kb3 19:44 PHCP role handed off by Kellie Benitez FNP-C kb 19:44 Dodie Bruce FNP-C is PHCP. kb 19:58 Wrist Left (3 View) XRAY In Process Unspecified. EDMS 20:27 Jyotsna Gillespie, RN is Primary Nurse. em6 20:32 Bed in low position. Call light in reach. Side rails up X 1. Pulse ox on. NIBP on. Warm em6 blanket given. 21:19 No provider procedures requiring assistance completed. Patient did not have IV access em6 during this emergency room visit. Administered Medications: 21:07 Drug: [place] (HYDROcodone-acetaminophen) 5 mg-325 mg 1 tabs Route: PO; kb 21:19 Follow up: Response: No adverse reaction; RASS: Alert and Calm (0) em6 Medication: 20:33 VIS not applicable for this client. em6 Outcome: 21:11 Discharge ordered by MD. kb 21:19 Discharged to home ambulatory. em6 21:19 Condition: stable 21:19 Discharge instructions given to patient, Instructed on discharge instructions, follow up and referral plans. medication usage, splint care Demonstrated understanding of instructions, follow-up care, medications, splint care, Prescriptions given X 1. 21:20 Patient left the ED. em6 Signatures: Dispatcher [employer] EDPR Dodie Bruce FNP-C FNP-Ckb Kellie Benitez FNP-C FNP-CsnGabi Mohan as Jyotsna Gillespie, RN RN em6 Beatriz Alicea, LYNETTE RN kb3 Corrections: (The following items were deleted from the chart) 21:20 21:19 Discharge instructions given to patient, Instructed on discharge instructions, em6 follow up and referral plans. medication usage, Demonstrated understanding of instructions, follow-up care, medications, Prescriptions given X 1, em6
[2022-09-03 22:10] VITALS: TEMP 98; O2SAT 100
[2022-09-03 22:11] VITALS: BP 141/98
== END 2022-09-03 21:20 | disposition home or self-care (01) ==
LOC: ER 18:07
DX: M25.532 Pain in left wrist (principal)
CPT/HCPCS: 99284

== ENCOUNTER 2022-09-16 17:09 | Emergency (ER) | payer SELFPAY ==
--- OUTSIDE RECORDS SUMMARY | 2022-09-16 17:14 | XMS REPORT | Continuity of Care Document ---
:1995 Author Organization [facility] t Address [address] [place] [address] Care Team Providers Name Role Phone Dena Perry Primary Care Physician [phone] SREE LOPEZ Attending Clinician Unavailable Sree Lopez MD Attending Clinician QIANA VALDEZ Attending Clinician Unavailable Qiana Kinney Attending Clinician Elliot Fletcher Attending Clinician ELLIOT FRASER Attending Clinician Unavailable Amber Cardozo NP Attending Clinician Payers Payer Name Policy Type Policy Number Effective Date Expiration Date S [facility] MEDICAID PENDING PENDING 2021 00:00:00 Problems Condition Condition Condition Status Onset Resolution Last Treating Co mments Source Name Details Category Date Date Treatment Clinician Date No known No known Disease Unive rs active active ity of problems problems [facility] Allergies, Adverse Reactions, Alerts Allergy Allergy Status Severity Reaction(s) Onset Inactive Treating Comm ents Source Name Type Date Date Clinician NO KNOWN Drug Active Univers ALLERGIE Class ity of S [facility] Social History Social Habit Start Date Stop Date Quantity Comments Source History of tobacco Cigarette Smoker University [facility] Exposure to 2022-08-31 2022-09-10 Not sure University of SARS-CoV-2 (event) 00:00:00 12:55:00 [facility] Cigarettes smoked 2017-07-12 2017-07-12 Univers ity of current (pack per 00:00:00 00:00:00 [facility] ) - Reported Branch Tobacco use and 2017-07-12 2017-07-12 Smokeless Universit y of exposure 00:00:00 00:00:00 tobacco non-user [facility] Sex Assigned At [birth year] Universit y of 00:00:00 00:00:00 [facility] Smoking Status Start Date Stop Date Source Smokes tobacco daily 2017-07-12 00:00:00 [facility] ity of [facility] Medications Ordered Filled Start Stop Current Ordering Indication Dosage Frequency Signature Comments Components Source Medication Medication Date Date Medication? Clinician (SIG) Name Name LORazepam No 1mg 1 mg, Univer s (ATIVAN) 09-10 Oral, ity of tablet 1 mg 19:30: 19:43 [place]CE, 1 [place] :[place] dose, On Medical Fri Branch 09/10/22 at 1330, VIVIEN hydrOXYzine Yes [id number] 25mg Take 1 Univers (VISTARIL) 09-10 capsule by ity of 25 mg 00:00: mouth 2 [place] capsule 00 (two) Medical times [place] daily as needed for Anxiety. Dose No Unknown 6-02 00:00: 00 Dose 2021-0 No Unknown 6-02 00:00: 00 Dose 2021-0 No Unknown 4-17 00:00: 00 Dose 2021-0 No Unknown 4-17 00:00: 00 Dose 2021-0 No Unknown 4-17 00:00: 00 Dose 2021-0 No Unknown 4-17 00:00: 00 Dose 2021-0 No Unknown 3-12 00:00: 00 Dose 2021-0 No Unknown 3-12 00:00: 00 Dose 2021-0 No Unknown 3-12 00:00: 00 Dose 2021-0 No Unknown 3-12 00:00: 00 Dose 2-0 No Unknown 3-12 00:00: 00 Dose 2021-0 No Unknown 3-12 00:00: 00 Dose 2021-0 No Unknown 3-12 00:00: 00 Dose 2022-0 [...] 2022-0 No Unknown 3-09 00:00: 00 Dose 2-0 No Unknown 3-09 00:00: 00 Dose 2-0 No Unknown 3-09 00:00: 00 Dose 2-0 No Unknown 3-09 00:00: 00 Dose 2-0 No Unknown 3-09 00:00: 00 Dose 2022-0 No Unknown 3-09 00:00: 00 Dose 2-0 No Unknown 3-09 00:00: 00 Dose 2-0 No Unknown 3-09 00:00: 00 Dose 2-0 No Unknown 3-09 00:00: 00 Dose 2-0 No Unknown 3-09 00:00: 00 Dose 2-0 No Unknown 3-09 00:00: 00 Dose 2-0 No Unknown 3-09 00:00: 00 Dose 2-0 No Unknown 3-09 00:00: 00 Dose 2-0 No Unknown 3-09 00:00: 00 Dose 2-0 No Unknown 3-09 00:00: 00 Dose 2-0 No Unknown 3-09 00:00: 00 Dose 2-0 No Unknown 3-09 00:00: 00 Dose 2-0 No Unknown 3-09 00:00: 00 Dose 2-0 No Unknown 3-09 00:00: 00 Dose 2-0 No Unknown 3-09 00:00: 00 Dose 2-0 No Unknown 3-09 00:00: 00 Dose 2022-0 No Unknown 3-09 00:00: 00 Dose 2-0 No Unknown 3-09 00:00: 00 Dose 2-0 No Unknown 3-09 00:00: 00 cefTRIAXone 2020-08- No 500mg 500 mg, U nivers (ROCEPHIN) 10-26 Intramuscu it y of injection 03:45: 02:59 lar, [place]CE, [place] 500 mg 00 :00 1 dose, On [facility] 08/24/21 at 2145, VIVIEN
Re ason for Anti-Infec tive: Documented Infection< br>Documen héctor Infection Site: Pelvic
Duration of Therapy: 7 days NaCl 0.9% 2020-08- No 1000mL at 999 Uni vers (NS) bolus 2-28 12-28 mL/hr, ity of infusion 02:00: 02:45 1,000 mL, [place] as 1,000 mL 00 :00 IV Medical Infusion, Branch ONCE, 1 dose, On 08/24/21 at 2000, VIVIEN doxycycline 2020-08- No [id number] 100mg Take 1 Univers hyclate 100 10-25 01-04 9101 capsule by i ty of mg capsule 00:00: 05:59 mouth 2 [place] 00 :00 (two) Medical times Branch daily for 7 days. traMADoL No 50mg 50 mg, Univer s (ULTRAM) 03-26 07-29 Oral, ity of tablet 50 22:15: 21:15 ONCE, 1 [place] mg 00 :00 dose, Nadia Medical 03/26/21 at Branch 1715, Routine traMADoL 50 Yes [id number] 50mg Take 1 Univ ers mg tablet -29 tablet by ity o f 00:00: mouth [...] Indication s: acute pain clindamycin 2020- No [id number] 450mg Take 3 Univers 150 mg 03-26 08-09 capsules ity of capsule 00:00: 04:59 by mouth 3 [place] 00 :00 (three) Medical times Branch daily for 10 days. dicyclomine Yes 20mg 20 mg, Univ ers (BENTYL) -14 Intramuscu ity o f injection 13:00: lar, QID, [place] 20 mg 00 First dose Medical on Tue Branch 12/10/20 at 0800, Until Discontinu ed, Routine ketorolac 2020- No 30mg 30 mg, Unive rs (TORADOL) 12-10- Slow IV ity of injection 04:45: 03:51 Push, [place] 30 mg 00 :00 ONCE, 1 Medical dose, [facility] Branch 12/09/20 at 2345, Routine
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 dicyclomine 2020- No [id number] 20mg Take 1 Univers 20 mg 12-10 [id number] tablet by ity of tablet 00:00: 00:00 mouth 4 [place] 00 :00 (four) Medical times Branch daily as needed for Abdominal pain. indomethaci 2020- No [id number] 50mg Take 1 Univers n 50 mg 12-10 [id number] capsule by ity of capsule 00:00: 04:59 mouth 2 [place] 00 :00 (two) Medical times Branch daily with meals for 7 days. Flonase No 12mcg/a Allergy 3-05 ctuatio Relief 50 00:00: n mcg/actuati 00 on nasal spray,suspe nsion Bromfed DM No 75mg/5 2 mg-30 3-05 mL mg-10 mg/5 00:00: mL oral 00 syrup HYDROcodone 2019-08 2020- No 1{tbl} 1 tablet, Univers -acetaminop 06-16 Oral, ity of hen (NORCO 22:00: 21:06 ONCE, 1 [place] 5) 5-325 mg 00 :00 dose, Mon Med ical tablet 1 06/16/20 Branch tablet at 1700, VIVIEN ketorolac 2019-08- No 60mg 60 mg, Unive rs (TORADOL) 06-16 Intramuscu ity of injection 22:00: 21:07 lar, ONCE, [place] 60 mg 00 :00 1 dose, Medical [facility] Branch 06/16/20 at 1700, VIVIEN
Fa culty member approving Restricted medication : EMERGENCY ROOM, penicillin 2019-08- No [id number] 500mg Take 1 Univers v potassium 0-19 10-27 tablet by it y of 500 mg 00:00: 04:59 mouth 4 [place] tablet 00 :00 (four) Medical times Branch daily for 7 days. acetaminoph 2019-08 2020- No [id number] 1{tbl} Take 1 U nivers en-codeine 0-19 10-27 tablet by ity of 300-30 mg 00:00: [...] No 5mL Take 5 mL Univers ifenesin 1-14 -29 by mouth ity of 10-100 mg/5 00:00: 00:00 every 6 [place] mL solution 00 :00 (six) Medical hours as Branch needed for Cough. ondansetron 2016-08 No 4mg Take 1 Uni vers 4 mg 1-14 -29 tablet by ity of disintegrat 00:00: 00:00 mouth [place] tablet 00 :00 every 8 Medica l (eight) Branch hours as needed for Nausea and Vomiting (N/V). ibuprofen No 1mg 800 mg 5-03 tablet 00:00: 00 Immunizations Ordered Filled Immunization Date Status Comments Sour e Immunization Name Name SARS-COV-2 COVID-19 2021-01-17 Completed Unive rsity of PFIZER VACCINE 00:00:00 [facility] SARS-COV-2 COVID-19 2021-01-17 Completed Unive rsity of PFIZER VACCINE 00:00:00 [facility] SARS-COV-2 COVID-19 2021-01-17 Completed Unive rsity of PFIZER VACCINE 00:00:00 [facility] SARS-COV-2 COVID-19 2020-12-20 Completed Unive rsity of PFIZER VACCINE 00:00:00 [facility] SARS-COV-2 COVID-19 2020-12-20 Completed Unive rsity of PFIZER VACCINE 00:00:00 [facility] SARS-COV-2 COVID-19 2020-12-20 Completed Unive rsity of PFIZER VACCINE 00:00:00 [facility] Influenza, 2017-08-24 Completed seasonal, inj 00:00:00 Hep A-Hep B 2017-04-06 Completed 00:00:00 Vital Signs Vital Name Observation Time Observation Value Comments Source Systolic blood 2022-09-10 18:57:00 180 mm[Hg] Univer sity of pressure [facility] Diastolic blood 2022-09-10 18:57:00 115 mm[Hg] Unive rsity of pressure [facility] Heart rate 2022-09-10 18:57:00 90 /min [facility] Body temperature 2022-09-10 18:57:00 36.83 Ariane [facility] Respiratory rate 2022-09-10 18:57:00 20 /min [facility] Body height 2022-09-10 18:57:00 157.5 cm [facility] Body weight 2022-09-10 18:57:00 79.379 kg [facility] BMI 2022-09-10 18:57:00 32.01 kg/m2 [facility] Oxygen saturation in 2022-09-10 18:57:00 99 /min University of Arterial blood by [facility] Pulse oximetry Branch Systolic blood 2021-08-25 02:00:00 120 mm[Hg] Univer sity of pressure [place] [facility] Diastolic blood 2021-08-25 02:00:00 82 mm[Hg] Unive rsity of pressure [place] [facility] Heart rate 2021-08-25 02:00:00 82 /min Universi ty [facility] [place] [facility] Respiratory rate 2021-08-25 02:00:00 15 /min Univ ersity of [place] [facility] Oxygen saturation in 2021-08-25 02:00:00 100 /min University of Arterial blood by [place] ju[place] m Pulse oximetry Branch Body temperature 2021-08-25 00:45:00 37.17 Ariane Univ [facility] [place] [facility] Body weight 2021-08-25 00:45:00 86.183 kg Universi ty [facility] [place] [facility] BMI 2021-08-25 00:45:00 34.75 kg/m2 [facility]i ty [facility] [place] [facility] Systolic blood 2021 20:13:00 108 mm[Hg] Univer sity of pressure [place] [facility] Diastolic blood 2021 20:13:00 86 mm[Hg] Unive rsity of pressure [place] [facility] Heart rate 2021 20:13:00 90 /min Universi ty of [place] [facility] Body temperature 2021 20:13:00 37.5 Ariane Univ ersity [facility] [place] [facility] Respiratory rate 2021 20:13:00 18 /min Univ ersity [facility] [place] [facility] Body height 2021 20:13:00 157.5 cm Universi ty [facility] [place] [facility] Body weight 2021 20:13:00 88.905 kg Universi ty [facility] [place] [facility] BMI 2021 20:13:00 35.85 kg/m2 [facility]i ty [facility] [place] [facility] Oxygen saturation in 2021 20:13:00 100 /min University of Arterial blood by [facility] juan m Pulse oximetry Branch Systolic blood 2020-12-10 00:00:00 120 mm[Hg] Univer sity of pressure [place] [facility] Diastolic blood 2020-12-10 00:00:00 74 mm[Hg] Unive rsity of pressure [place] [facility] Heart rate 2020-12-10 00:00:00 71 /min [facility]i ty [facility] [place] [facility] Body temperature 2020-12-10 00:00:00 37.5 Ariane Univ ers[facility] [place] [facility] Respiratory rate 2020-12-10 00:00:00 18 /min Univ ers[facility] [place] [facility] Body weight 2020-12-10 00:00:00 86.183 kg [facility]i [facility] [place] [facility] BMI 2020-12-10 00:00:00 34.75 kg/m2 [facility] [place] [facility] Oxygen saturation in 2020-12-10 00:00:00 97 /min University of Arterial blood by [facility] Pulse oximetry Branch Systolic blood 2020-12-10 00:00:00 120 mm[Hg] Univer sity of pressure [place] [facility] Diastolic blood 2020-12-10 00:00:00 74 mm[Hg] Unive rsity of pressure [place] [facility] Heart rate 2020-12-10 00:00:00 71 /min Universi ty [facility] [place] [facility] Body temperature 2020-12-10 00:00:00 37.5 Ariane Univ ers[facility] [place] [facility] Respiratory rate 2020-12-10 00:00:00 18 /min Univ ers[facility] [place] [facility] Body weight 2020-12-10 00:00:00 86.183 kg [facility]i [facility] [place] [facility] BMI 2020-12-10 00:00:00 34.75 kg/m2 [facility] [place] [facility] Oxygen saturation in 2020-12-10 00:00:00 97 /min University of Arterial blood by [facility] Pulse oximetry Branch Systolic blood 2020-06-16 20:21:00 132 mm[Hg] Univer sity of pressure [place] [facility] Diastolic blood 2020-06-16 20:21:00 74 mm[Hg] Unive rsity of pressure [place] [facility] Heart rate 2020-06-16 20:21:00 82 /min Universi ty [facility] [place] [facility] Body temperature 2020-06-16 20:21:00 36.72 Ariane Univ ersity [facility] [place] [facility] Respiratory rate 2020-06-16 20:21:00 20 /min Univ [facility] [place] [facility] Body height 2020-06-16 20:21:00 157.5 cm [facility]i [facility] [place] [facility] Body weight 2020-06-16 20:21:00 86.183 kg [facility] [place] [facility] BMI 2020-06-16 20:21:00 34.75 kg/m2 [facility] [place] [facility] Oxygen saturation in 2020-06-16 20:21:00 100 /min University of Arterial blood by [facility] Pulse oximetry Branch Systolic blood 2020-06-16 20:21:00 132 mm[Hg] Univer sity of pressure [facility] Diastolic blood 2020-06-16 20:21:00 74 mm[Hg] Unive rsity of pressure [facility] Heart rate 2020-06-16 20:21:00 82 /min Universi ty of [facility] Body temperature 2020-06-16 20:21:00 36.72 Ariane Univ ersity of [facility] Respiratory rate 2020-06-16 20:21:00 20 /min [facility] Body height 2020-06-16 20:21:00 157.5 cm Universi ty of [facility] Body weight 2020-06-16 20:21:00 86.183 kg Universi ty [facility] BMI 2020-06-16 20:21:00 34.75 kg/m2 Universi [facility] Oxygen saturation in 2020-06-16 20:21:00 100 /min University of Arterial blood by [facility] Pulse oximetry Branch BP Systolic 2021-11-04 11:02:00 [...] 16.00 /min Procedures Procedure Date / Time Performing Clinician Source Performed POCT TEST 2022-09-10 19:42:00 Sree Lopez [facility] URINE DRUG (IMMUNOASSAY) 2022-09-10 19:41:00 Sree Lopez [facility] SCREEN URINALYSIS 2022-09-10 19:41:00 Sree Lopez White o f [facility] CONSENT/REFUSAL FOR 2022-09-10 18:46:57 Doctor Unassigned, No [facility] [place] DIAGNOSIS AND TREATMENT Name [facility] POCT TEST 2021-08-25 01:28:00 Qiana Valdez [facility] BASIC METABOLIC PANEL 2021-08-25 01:26:00 [facility] (NA, K, CL, CO2, Medical Branch GLUCOSE, BUN, CREATININE, CA) CBC WITH DIFF 2021-08-25 01:26:00 José iMguel [facility] URINALYSIS 2021-08-25 01:26:00 José Miguel [facility] CONSENT/REFUSAL FOR 2021-08-25 00:39:27 Doctor Unassigned, No [facility] [place] DIAGNOS[facility] TREATMENT [facility] CONSENT/REFUSAL FOR 2021 20:08:24 Doctor Unassigned, No [facility] [place] DI[facility] TREATMENT [facility] ABDOMEN PELVIS WO 2020-12-10 04:09:17 Amber Cardozo [facility] CONTRAST [facility] URINE DRUG (IMMUNOASSAY) 2020-12-10 03:57:00 [facility] [place] [facility] ER PANEL [facility] POCT TEST 2020-12-10 01:46:00 Johnnie Olivarez [facility] LIPASE 2020-12-10 01:44:00 Johnnie Olivarez [facility] COMP. METABOLIC PANEL 2020-12-10 01:44:00 Johnnie Olivarez [facility] ([id number]) [facility] CBC WITH DIFF 2020-12-10 01:44:00 Johnnie Olivarez [facility] URINALYSIS 2020-12-10 01:44:00 Johnnie Olivarez [facility] NOTICE OF PRIVACY 2020-12-09 23:56:35 [facility]igned, No [facility] CONSENT/REFUSAL FOR 2020-12-09 23:55:46 Doctor Unassigned, No [facility] [place] DIAGNOSIS AND TREATMENT Name Medical Branch CONSENT/REFUSAL FOR 2020-06-16 20:19:26 Doctor Unassigned, No [facility] [place] DIAGNOSIS AND TREATMENT Name Medical Branch Plan of Care Planned Activity Planned Date Details Comments Source Goal Plan of Care Note [code = 01013-6] Goal Plan of Care Note [code = 43924-9] Goal Plan of Care Note [code = 80280-9] Goal Plan of Care Note [code = 93876-4] Goal Plan of Care Note [code = 96834-9] Goal Plan of Care Note [code = 04835-5] Goal Plan of Care Note [code = 99397-6] Goal Plan of Care Note [code = 38481-2] Goal Plan of Care Note [code = 10328-0] Goal Plan of Care Note [code = 16290-1] Goal Plan of Care Note [code = 07147-6] Goal Plan of Care Note [code = 80437-9] Goal Plan of Care Note [code = 86931-8] Goal Plan of Care Note [code = 90866-2] Goal Plan of Care Note [code = 77000-4] Goal Plan of Care Note [code = 99150-9] Goal Plan of Care Note [code = 01424-0] Goal Plan of Care Note [code = 54810-2] Goal Plan of Care Note [code = 55711-6] Goal Plan of Care Note [code = 56568-7] Goal Plan of Care Note [code = 16824-3] Goal Plan of Care Note [code = 94182-7] Goal Plan of Care Note [code = 28498-8] Goal Plan of Care Note [code = 30592-4] Goal Plan of Care Note [code = 42376-4] Goal Plan of Care Note [code = 10316-6] Encounters Start End Encounter Admission Attending Care Care Encounter Source Date/Time Date/Time Type Type Clinicians Facility Department ID 2022-09-11 Outpatient [facility] [id number] [place] 22:37:13 [id number] Health 2022-09-10 2022-09-10 Emergency X CATHLEEN LOPEZ ERT [id number] Univers 12:58:00 16:23:00 SREE jimenez of [facility] 2022-09-10 2022-09-10 Emergency Vasut, [facility] [id number] Univers 12:58:00 16:23:00 Sree LOONEY [id number] i ty of [place] 4.2.7.2.686 [facility] [id number] [address] 2022-04-02 2022-04-02 [facility] [id number] 00:00:00 00:00:00 Visit [id number] 2021-08-24 2021-08-24 Emergency X VALDEZ, [facility] ERT [id number] Univers 18:46:00 21:11:00 QIANA itmaegan [facility] 2021-08-24 2021-08-24 Emergency Valdez, [facility] [id number] Univers 18:46:00 21:11:00 Qiana LOONEY [id number] i ty of [place] [address] [place] [id number] 2021 2021 [facility] [id number] Univers 15:14:00 16:17:00 Elliot Looney [id number] i ty of [place] 4.2.7.2.6 [facility] [id number] [address] 2021 2021 Emergency X EVELIO, [facility] ERT [id number] Univers 15:08:00 15:08:00 ELLIOT ity [facility] 2020-12-09 2020-12-10 Emergency [facility] [id number] Univers 19:02:00 01:46:00 Amber Looney [id number] ity of [place] 4.2.7.2.6 [facility] [id number] [address] 2020-12-09 2020-12-10 Emergency [facility] [id number] 19:02:00 01:46:00 Amber Looney [id number] [place] 4.2.7.2.686 [place] [id number] [facility] 2020-12-09 2020-12-09 Emergency X [facility] ERT [id number] Univers 18:54:00 18:54:00 ity [facility] 2020-06-16 2020-06-16 Emergency Valdez, [facility] [id number] Univers 15:24:00 17:00:00 Qiana Looney [id number] i ty of [place] 4.2.7.2.686 [facility] [id number] [address] 2020-06-16 2020-06-16 Emergency [facility], [facility] [id number] 15:24:00 17:00:00 Qiana Looney [id number] [place] 4.2.7.2.686 [place] [id number] [facility] 2020-06-16 2020-06-16 Emergency X [facility] ERT [id number] Univers 15:18:00 15:18:00 [facility] 2020-01-27 2020-01-27 Emergency X [facility] ERT [id number] Univers 14:14:00 14:14:[address] [facility] Results Test Description Test Time Test Comments Results Result Comments Source POCT TEST 2022-09-10 19:42:00 Test Item Value Reference Range Interpretation Comme nts POCT PREG (test code = 1605) negative On board controls acceptable with C Line (test code = 3574) present POCT PREG LOT # (test code = 3575) [id number] POCT PREG TEST DATE (test code = 3576) 11-27-2023 Lab Interpretation (test code = 12715-8) Normal [facility], THINPREP, [id number] 09:47:06 Test Item Value Reference Range Interpretation Comments SOURCE: (test Cervical/Endoce code = 8001) rvical SLIDES: (test 1 code = 8011) LMP: (test code 10/27/2021 = 8021) SPECIMEN (NOTE) Satisfactory f or ADEQUACY: (test evaluation. code = 54981) Endocervical cells/transform ation zone component present. INTERPRETATION: NILM/NO EPITH. (test code = ABNORMALITY;SEE 49787) BELOW -------- - NEGATIVE FOR INTRAEPITHELIAL LESION OR MALIGNANCY ( NILM) -------- -------- -------- ---- SYSTEM VALIDATION ENGINEER Nery Macedo : (test code = 8101) LOCATION: (test (NOTE) Specimens pr ocessed and code = 08931) interpreted at [facility], [address] [place] [address] 4, Phone: , CLIA: [id number] CPT: (test code (NOTE) 81695 UNLESS OTHERWISE = 8140) INDICATED, COMP UTER AIDED AND CYTOTECHNOLOGIS T SCREENING PERFO RMED. The Pap test is a screening test with an inherent, but l ow probability of error. Your patient sh ould be reminded to con sult you immediately if she experiences any suspicious sig ns or symptoms, regar dless of her Pap test re sult. An alternate repor t format containing imag es or consolidated pr ior Pap history is avai lable as applicable. UNL ESS OTHERWISE INDIC ATED, ALL TESTING PER FORMED [facility] PATH [facility], [facility]. [address] [place] [address] LABORATOR Y DIRECTOR: ELIF MADISON M.D. CLIA NUMBER [id number] CAP ACCREDITATION N O. [id number] PAP TEST, THINPREP, [id number] 00:00:00 Test Item Value Reference Range Interpretation Comments SOURCE: (test code = Cervical/Endocervical 8001) SLIDES: (test code = 1 8011) LMP: (test code = 8021) 10/27/2021 SPECIMEN ADEQUACY: (NOTE) (test code = 55696) INTERPRETATION: (test NILM/NO EPITH. code = 24469) ABNORMALITY;SEE BELOW SYSTEM VALIDATION ENGINEER: (test Nery Macedo code = 8101) LOCATION: (test code = (NOTE) 24717) CPT: (test code = 8140) (NOTE) PAP TEST, THINPREP, [id number] 00:00:00 Test Item Value Reference Range Interpretation Comments SOURCE: (test code = Cervical/Endocervical 8001) SLIDES: (test code = 1 8011) LMP: (test code = 8021) 10/27/2021 SPECIMEN ADEQUACY: (NOTE) (test code = 66098) INTERPRETATION: (test NILM/NO EPITH. code = 37999) ABNORMALITY;SEE BELOW SYSTEM VALIDATION ENGINEER: (test Nery Macedo code = 8101) LOCATION: (test code = (NOTE) 57281) CPT: (test code = 8140) (NOTE) VAGINAL PATHOGENS DNA [id number] 14:50:28 Test Item Value Reference Range Interpretation Comments DAMIR SPECIES (test NEGATIVE NEGATIVE code = 51842) G. VAGINALIS (test NEGATIVE NEGATIVE code = 48653) T. VAGINALIS (test NEGATIVE NEGATIVE UNLESS O THERWISE code = 97876) INDICATED, ALL TESTING PERFORMED [facility] PATHOLOGY LABOR [facility] [facility] [address] [place] [address] 4 LABORATORY DIRE CTOR: ELIF BLACK M.D. CLIA NUMBER [id number] [facility] [place] [id number] 06:56:09 Test Item Value Reference Range Interpretation Comments RPR RESULT (test code = NON-REACTIVE NON-REACTIVE 3501) RPR TITER (test code = 3500) NOT INDIC. TITER NOT INDIC. HIV 1/2 4TH GEN, RFLX [id number] 05:54:17 Test Item Value Reference Range Interpretation Comments HIV 1/2 4TH GEN, RFLX CONF (test NON-REACTIVE NON-REACTIVE code = 3514) HEPATITIS PANEL, [id number] 05:54:17 Test Item Value Reference Range Interpretation Comments HEPATITIS A IgM (test NON-REACTIVE NON-REACTIVE code = 20453) HEPATITIS B CORE IgM NON-REACTIVE NON-REACTIVE (test code = 4644) HEPATITIS B SURF AG NON-REACTIVE NON-REACTIVE (test code = 2739) HEPATITIS C ANTIBODY NON-REACTIVE NON-REACTIVE (test code = 4675) INTERPRETATION (NOTE) Hepatitis A HEPATITIS A: (test code sero logy shows no = 2552) evidence of acu te hepatitis A. INTERPRETATION (NOTE) Hepatitis B HEPATITIS B: (test code sero logy shows no = 61442) evidence of acu te hepatitis B and no indication of exposure to hepatitis B vir us in the previous jie eight months. INTERPRETATION (NOTE) Hepatitis C HEPATITIS C: (test code sero logy shows no = 56028) evidence of exposure to hepatitisC viru s at this time. I t can take up to 12 months after exposure tothe hepatitis C vir us for antibodies to become detectab le in the blood in certain patient s. HIV AB/AG COMBO RFLX [id number] 00:00:00 Test Item Value Reference Range Interpretation Comments HIV 1/2 4TH GEN, RFLX CONF (test NON-REACTIVE code = 3514) HIV AB/AG COMBO RFLX [id number] 00:00:00 Test Item Value Reference Range Interpretation Comments HIV 1/2 4TH GEN, RFLX CONF (test NON-REACTIVE code = 3514) ACUTE HEPATITIS [id number] 00:00:00 Test Item Value Reference Range Interpretation Comments HEPATITIS A IgM (test code = NON-REACTIVE 63945) HEPATITIS B CORE IgM (test code NON-REACTIVE = 4644) HEPATITIS B SURF AG (test code = NON-REACTIVE 2739) HEPATITIS C ANTIBODY (test code NON-REACTIVE = 4675) INTERPRETATION HEPATITIS A: (NOTE) (test code = 2552) INTERPRETATION HEPATITIS B: (NOTE) (test code = 58927) INTERPRETATION HEPATITIS C: (NOTE) (test code = 10542) ACUTE HEPATITIS [id number] 00:00:00 Test Item Value Reference Range Interpretation Comments HEPATITIS A IgM (test code = NON-REACTIVE 15334) HEPATITIS B CORE IgM (test code NON-REACTIVE = 4644) HEPATITIS B SURF AG (test code = NON-REACTIVE 2739) HEPATITIS C ANTIBODY (test code NON-REACTIVE = 4675) INTERPRETATION HEPATITIS A: (NOTE) (test code = 2552) INTERPRETATION HEPATITIS B: (NOTE) (test code = 08163) INTERPRETATION HEPATITIS C: (NOTE) (test code = 16310) [id number] 00:00:00 Test Item Value Reference Range Interpretation Comments RPR RESULT (test code = NON-REACTIVE 3501) RPR TITER (test code = 3500) NOT INDIC. TITER [id number] 00:00:00 Test Item Value Reference Range Interpretation Comments RPR RESULT (test code = NON-REACTIVE 3501) RPR TITER (test code = 3500) NOT INDIC. TITER [id number] 00:00:00 Test Item Value Reference Range Interpretation Comments RPR RESULT (test code = NON-REACTIVE 3501) RPR TITER (test code = 3500) NOT INDIC. TITER VAGINAL PATHOGENS DNA [id number] 00:00:00 Test Item Value Reference Range Interpretation Comments DAMIR SPECIES (test code = 62437) NEGATIVE G. VAGINALIS (test code = 24743) NEGATIVE T. VAGINALIS (test code = 96919) NEGATIVE VAGINAL PATHOGENS DNA [id number] 00:00:00 Test Item Value Reference Range Interpretation Comments DAMIR SPECIES (test code = 68987) NEGATIVE G. VAGINALIS (test code = 37904) NEGATIVE T. VAGINALIS (test code = 08372) NEGATIVE SARS-CoV-2 (COVID-19), RT-PCR/[id number] 13:12:43 Test Item Value Reference Interpretation Comments Range SARS-CoV-2 NEGATIVE SEE NOTE SARS-CoV-2 RNA NOT INTERPRETATION DETECTEDNegat fidencio (test code = 33549) results do not preclude SARS-C oV-2 infection and s hould notbe used as t he sole basis for patie nt management deci sions. Negativeresults must be combined wit h clinical observ ations, patient history ,and epidemiological information. Op timum specimen types and timingfor peak viral levels during infections caus ed by SARS-CoV-2 have notbeen determi andrew. Collection of m ultiple specimens or ty [...] (test code = NASOPHARYNGEAL Note: [place] [address]) Ronit Jagdeep [place] l-Time RT-PCR. The exp ected result or refer ence range is NEGATI VE (Not Detected). For more information reg arding COVID-19 testin g to include clinicalinforma tion, methodology det ail, intended use, F DA authorization andrecommended fact sheets for krissy ents or healthcare prov iders, see Channel [employer] Announcement: SARS-CoV-2 (COV ID-19) by NAAT at URL below (note,fact shee ts are provided by met hod given in report:https:// [email or web address]/clinic ians/cl ient-communicat ions/ Alternatively, see downloadable PD F fact sheet at:https://www. [employer]/COVID-19-R T-PCR UNLESS OTHERWIS E INDICATED, ALL TESTING PERFORMED [facility]Y [facility], [facility]. [address] [place] [address] DIRECTOR: ELIF MADISON M.D. CLIA NUMBER [id number] CAP ACCREDITATION N O. [id number] SARS-CoV-2 (COVID-19) by RT-PCR (HIGH RISK)2021-09-16 00:00:00 Test Item Value Reference Range Interpretation Comments SARS-CoV-2 INTERPRETATION NEGATIVE (test code = 97478) SOURCE (test code = 09192) NASOPHARYNGEAL SARS-CoV-2 (COVID-19) by RT-PCR (HIGH RISK)2021-09-16 00:00:00 Test Item Value Reference Range Interpretation Comments SARS-CoV-2 INTERPRETATION NEGATIVE (test code = 95485) SOURCE (test code = 40646) NASOPHARYNGEAL SARS-CoV-2 (COVID-19), RT-PCR/[id number] 13:37:12 Test Item Value Reference Interpretation Comments Range SARS-CoV-2 PRESUMPTIVE SEE NOTE A NOTE: PRESUMPT FIDENCIO INTERPRETATION POSITIVE POSITIVE RESU LTS (test code = 62859) ARE MOST CONSISTENT WITH SARS-COV-2 NEAR THE LIMIT OF DETECTION OF TH E ASSAY. OTHER UNCOMMON POSSIBLECAUSES ARE A MUTATION IN O NE OF THE TARGET REGIONS, INFECT ION WITHANOTHER SARBECOVIRUS OR LABORATORY ISSU ES. CORRELATE WITH CLINICALHISTORY AND EPIDEMIOLOGIC FINDINGS. SOURCE (test code = NASOPHARYNGEAL Note: Methodology 02999) is Ronit Jagdeep Real-Time RT-PC R. The [...] provided by method given in report:https:// www. [employer]Act[employer]/Cozy Queeni ans/client-comm unic ations/ Alternatively, see downloadable PD F fact sheet at:https://www. [employer]/COVID-1 9-RT -PCR Note: Methodology is Ronit Jagdeep Real-Time RT-PC R. The expected re sult or reference ra nge is NEGATIVE (No t Detected). For more information regarding COVID -19 testing to incl e clinicalinforma tion , methodology detail, intende d use, FDA authorization andrecommended fact sheets for krissy ents or healthcare providers, see NewTest Announcement: SARS-CoV-2 (COVID-19) by N AAT at URL below (note,fact shee ts are provided by method given in report:https:// wwwLocalCircles/Cozy Queeni ans/client-comm unic ations/ Alternatively, see downloadable PD F fact sheet at:https://wwwCubeacon/COVID-1 9-RT -PCR UNLESS OTHERWISE INDICATED, ALL TESTING PERFORM [facility], [facility]. [address] [place] [address] 4 MUSIC TYPOGRAPHER: ELIF MADISON M.D. CLIA NUMBER [id number] CAP ACCREDITATION N O. [id number] SARS-CoV-2 (COVID-19) by RT-PCR (HIGH RISK)2021-09-09 00:00:00 Test Item Value Reference Range Interpretation Comments SARS-CoV-2 PRESUMPTIVE POSITIVE INTERPRETATION (test code = 53537) SOURCE (test code = NASOPHARYNGEAL 09300) SARS-CoV-2 (COVID-19) by RT-PCR (HIGH RISK)2021-09-09 00:00:00 Test Item Value Reference Range Interpretation Comments SARS-CoV-2 PRESUMPTIVE POSITIVE INTERPRETATION (test code = 01219) SOURCE (test code = NASOPHARYNGEAL 18531) BASIC METABOLIC PANEL (NA, K, CL, CO2, GLUCOSE, BUN, CREATININE, CA)2021-08-25 01:45:53 Test Item Value Reference Range Interpretation Comments NA (test code = 136 mmol/L 135-145 7981259825) K (test code = 4.1 mmol/L 3.5-5.0 7315074279) CL (test code = 102 mmol/L 98-108 9750302597) CO2 TOTAL (test code = 29 mmol/L 23-31 6166477226) AGAP (test code = 2-16 4398054019) BUN (test code = 9 mg/dL 7-23 3807386417) GLUCOSE (test code = 92 mg/dL 70-110 8293541887) CREATININE (test code = 0.54 mg/dL 0.50-1.04 4311295822) CALCIUM (test code = 8.5 mg/dL 8.6-10.6 L 0742763359) eGFR (test code = mL/min/1.73m2 5766761023) EMERALD (test code = EMERALD) Association of [...] tests). Lab Interpretation Abnormal (test code = 06348-5) [facility] WITH [id number] 01:34:37 Test Item Value Reference Range Interpretation Comments WBC (test code = See_Comment [Automated 2690-2) message] The sy stem which generated this result transmitted reference range : 4.30 - 11.10 10*3/?L. The reference range was not used to interpret this result as normal/abnormal . RBC (test code = See_Comment [Automated 789-8) message] The sy stem which generated this [...] RDW-SD (test code = 41.3 fL 39.0-49.9 85123-7) RDW-CV (test code = 12.7 % 12.0-15.5 788-0) PLT (test code = See_Comment [Automated 777-3) message] The sy stem which generated this result transmitted reference range : 166 - 358 10*3/ ?L. The reference r lexy was not used to interpret this result as normal/abnormal . MPV (test code = 9.1 fL 9.5-12.9 L 24710-6) NRBC/100 WBC (test See_Comment [Automat ed code = 1864639347) message] The system which generated this result transmitted reference range : 0.0 - 10.0 /100 WBCs. The refer ence range was not u sed to interpret th is result as normal/abnormal . NRBC x10^3 (test code <0.01 See_Comment [Auto mated = 5726365915) message] The s ystem which generated this result transmitted reference range : 10*3/?L. The reference range was not used to interpret this result as normal/abnormal . GRAN MAT (NEUT) % 49.6 % (test code = 770-8) IMM GRAN % (test code 0.20 % = 8531687202) LYMPH % (test code = 39.5 % 736-9) MONO % (test code = 9.0 % 5905-5) EOS % (test code = 1.3 % 713-8) BASO % (test code = 0.4 % 706-2) GRAN MAT x10^3(ANC) 2.36 10*3/uL 1.88-7.09 (test code = 5688898647) IMM GRAN x10^3 (test <0.03 0.00-0.06 code = 7065087701) LYMPH x10^3 (test code 1.88 10*3/uL 1.32-3.29 = 731-0) MONO x10^3 (test code 0.43 10*3/uL 0.33-0.92 = 742-7) EOS x10^3 (test code = 0.06 10*3/uL 0.03-0.39 711-2) BASO x10^3 (test code <0.03 0.01-0.07 = 704-7) Lab Interpretation Abnormal (test code = 52904-7) [facility] [id number] 01:28:00 Test Item Value Reference Range Interpretation Comments POCT PREG (test code = 1605) negative On board controls acceptable with present C Line (test code = 3574) POCT PREG LOT # (test code = 3575) [id number] POCT PREG TEST DATE (test 09/28/2022 code = 3576) Lab Interpretation (test code = Normal 39227-8) [facility]2020-12-10 05:28:49 Test Item Value Reference Range Interpretation Comments AMPHET (test code = Negative Negative 7257014341) Cocaine Metabolite (test Negative Negative code = 7370483276) OPIATES (test code = Presumptive Positive Negative A 2941451850) THC (test code = Negative Negative 8699333708) EMERALD (test code = EMERALD) Urine Drug Cutoff Ranges Amphetamine: ? 1,000 ng/mLCocaine: ? 150 ng/mLOpiates: ? 300 ng/mLCannabinoids: ?50 ng/mL The results are to be used only for medical (i.e., treatment) purposes. Unconfirmed screening results must not be used for non-medical purposes (e.g., employment testing, legal testing). Lab Interpretation (test Abnormal code = 39486-0) [facility] P[facility] WO [id number] 04:25:17No acute intra-abdominal or pelvic abnormality. No genitourinary stones. Complex right ovarian cyst,likely hemorrhagic cyst measuring 3.8 cm RL: 6200AFC: 66692 Patient name: LORNA GUERRAB: 1995 25 years EXAMINATION: CT ABDOMEN PELVIS WO CONTRAST Ordering Physician: AMBER CARDOZO CLINICAL HISTORY:Flank pain, kidney stonesuspected COMPARISON:None TECHNIQUE:Helical CT images of the abdomen and pelvis were performed from the lungbases to the proximal femurs using 5 mm slice thickness without theadministration of IV contrast. Coronal and sagittal reconstruction wasperformed. Dose reduction technology was utilized.. FINDIN GS:Lack of IV contrast decreased sensitivity for detecting [...] ovary measures 3.8 cm. No hiatal hernia oresophageal thickening. No discrete gastric thickeningor surrounding inflammatory changes. The large and small bowel are normalin caliber and wall thickness. The appendix is normal. No free fluid or abscess. No adenopathy. Aorta is normal in caliber. No acute osseous abnormality. No acute process in the subcutaneous softtissues. The lung bases are clear. [facility], Radiant Results Inft User - 12/09/2020 11:26 PM CDTPatient name: LORNA HIGHTOWER: 1995 25 years EXAMINATION: CT ABDOMEN PELVISWO CONTRASTOrdering Physician: AMBER CARDOZO CLINICAL HISTORY:Flank pain, kidney stone suspected COMPARISON:NoneTECHNIQUE:Helical CT images of the abdomen and pelvis were performed from the lungbasesto the proximal femurs using 5 mm slice thickness without theadministration of IV contrast. Coronal and sagittal reconstruction wasperformed. Dose reduction technology was utilized..FINDINGS:Lack of IVcontrast decreased sensitivity for detecting and characterizingabnormalities within the abdomen and pelvis. The liver is normal in sizeand morphology without discrete lesions. No calcified gallstones. Thespleen is normal. No pancreatic lesions or inflammatory changes. Theadrenal glands are normal.Bothkidneys are symmetric in size without discrete lesions. No stones orhydronephrosis. Urinary bladder is grossly normal. Complex cyst in theright ovary measures 3.8 cm.No hiatal hernia or esophageal thick ening. No discrete gastric thickeningor surrounding inflammatory changes. The large and small bowel are normalin caliber and wall thickness. The appendix is normal.No free fluid or abscess. No adenopathy. Aorta is normal in caliber.No acute osseous abnormality. No acute process in the subcutaneous softtissues. The lung bases are clear.IMPRESSIONNo acute intra-abdominal or pelvic abnormality. No genitourinary stones.Complex right ovarian cyst, likely hemorrhagic cyst measuring 3.8 cmRL: 6200AF: 13520 [facility]en[facility]inalysis2021-04-14 02:12:28 Test Item Value Reference Range Interpretation Comments APPEARANCE (test code = Hazy Clear A 8723797758) COLOR (test code = Yellow Yellow 8284409374) PH (test code = 4.8-8.0 3986295966) SP GRAVITY (test code = 1.003-1.030 1558085888) GLU U QUAL (test code = Normal Normal 8242627611) BLOOD (test code = Negative Negative 5334996548) KETONES (test code = Negative Negative 3798060262) PROTEIN (test code = Negative Negative 2887-8) UROBILIN (test code = 4.0 mg/dL Normal A 6116185093) BILIRUBIN (test code = Negative Negative 6901990678) NITRITE (test code = Negative Negative 1765277211) LEUK HOLLEY (test code = Negative Negative 4104088969) RBC/HPF (test code = See_Comment H [Autom ated message] 8445903265) The system InfoBionic generated this result transmit héctor reference range : 0 - 3 HPF. The refe rence range was not u sed to interpret th is result as normal/abnormal . WBC/HPF (test code = See_Comment [Autom ated message] 9025514209) The system [employer] generated this result transmit héctor reference range : 0 - 5 HPF. The refe rence range was not u sed to interpret th is result as normal/abnormal . BACTERIA (test code = Negative Negative 8409131077) MUCOUS (test code = Slight Negative LPF A 4320925462) SQ EPITH (test code = HPF 3998675534) YEAST BUD (test code = See_Comment H [Aut omated message] 3063927851) The system [employer] generated this result transmit héctor reference range : <=1 HPF. The refere nce range was not u sed to interpret th is result as normal/abnormal . Lab Interpretation (test Abnormal code = 21783-6) [facility] Metabolic [id number] 02:09:13 Test Item Value Reference Range Interpretation Comments NA (test code = 137 mmol/L 135-145 5191632061) K (test code = 3.7 mmol/L 3.5-5.0 4711158783) CL (test code = 103 mmol/L 98-108 4566745742) CO2 TOTAL (test code 26 mmol/L 23-31 = 7421275554) AGAP (test code = 2-16 6261536391) BUN (test code = 12 mg/dL 7-23 6924591246) GLUCOSE (test code = 92 mg/dL 70-110 1875707282) CREATININE (test code 0.62 mg/dL 0.50-1.04 = 9624095339) TOTAL BILI (test code 0.4 mg/dL 0.1-1.1 = 2599577603) CALCIUM (test code = 8.9 mg/dL 8.6-10.6 3344024271) T PROTEIN (test code 7.1 g/dL 6.3-8.2 = 5288849851) ALBUMIN (test code = 4.4 g/dL 3.5-5.0 3120909903) ALK PHOS (test code = 79 U/L 34-122 1093413320) ALTv (test code = 16 U/L 5-35 1742-6) AST(SGOT) (test code 23 U/L 13-40 = 7632031202) eGFR (test code = mL/min/1.73m2 3877117802) EMERALD (test code = EMERALD) Association of [...] or urine or abnormalities in imaging tests). [facility]enLip[facility], [id number] 02:08:38 Test Item Value Reference Range Interpretation Comments LIPASE (test code = 5932468819) 53 U/L 0-220 Lab Interpretation (test code = Normal 89451-8) [facility] with [id number] 02:00:16 Test Item Value Reference Range Interpretation Comments WBC (test code = See_Comment [Automated message] 6690-2) The system [employer] generated this result transmitted ref erence range: 4.30 - 1 1.10 10*3/?L. The re ference range was not u sed to interpret this result as normal/abnor mal. RBC (test code = See_Comment [Automated message] 319-8) The system [employer] generated this result transmitted ref erence range: [...] RDW-SD (test code 42.6 fL 39.0-49.9 = 34123-0) RDW-CV (test code 13.2 % 12.0-15.5 = 788-0) PLT (test code = See_Comment [Automated message] 777-3) The system [employer] generated this result transmitted ref erence range: 166 - 35 8 10*3/?L. The re ference range was not u sed to interpret this result as normal/abnor mal. MPV (test code = 9.5 fL 9.5-12.9 62674-2) NRBC/100 WBC (test See_Comment [Automat ed message] code = 7834677343) The [employer] which generated this result transmitted ref erence range: 0.0 - 10 .0 /100 WBCs. The refer ence range was not u sed to interpret this result as normal/abnor mal. NRBC x10^3 (test <0.01 See_Comment [Automated message] code = 5919972676) The syste m which generated this result transmitted ref erence range: 10*3/?L. The reference range was not used to interpr et this result as normal/abnormal . GRAN MAT (NEUT) % 59.6 % (test code = 770-8) IMM GRAN % (test 0.30 % code = 6571417138) LYMPH % (test code 31.8 % = 736-9) MONO % (test code 6.4 % = 5905-5) EOS % (test code = 1.4 % 713-8) BASO % (test code 0.5 % = 706-2) GRAN MAT 5.15 10*3/uL 1.88-7.09 x10^3(ANC) (test code = 4280213637) IMM GRAN x10^3 0.03 10*3/uL 0.00-0.06 (test code = 6906812592) LYMPH x10^3 (test 2.75 10*3/uL 1.32-3.29 code = 731-0) MONO x10^3 (test 0.55 10*3/uL 0.33-0.92 code = 742-7) EOS x10^3 (test 0.12 10*3/uL 0.03-0.39 code = 711-2) BASO x10^3 (test 0.04 10*3/uL 0.01-0.07 code = 704-7) [facility] [id number] 01:46:00 Test Item Value Reference Range Interpretation Comments POCT PREG (test code = 1605) negative On board controls acceptable with C present Line (test code = 3574) Lab Interpretation (test code = Normal 53298-1) [facility]ARS[facility] (COVID-19) by RT-PCR (HIGH RISK) 2020-12-03 00:00:00 Test Item Value Reference Range Interpretation Comments SARS-CoV-2 INTERPRETATION (test NEGATIVE code = 35503) SOURCE (test code = 24599) NOT SPECIFIED SARS-CoV-2 (COVID-19) by RT-PCR (HIGH RISK)2020-12-03 00:00:00 Test Item Value Reference Range Interpretation Comments SARS-CoV-2 INTERPRETATION (test NEGATIVE code = 54937) SOURCE (test code = 72427) NOT SPECIFIED PAP TEST, THINPREP, [id number] 00:00:00 Test Item Value Reference Range Interpretation Comments SOURCE: (test code = Cervical/Endocervical 8001) SLIDES: (test code = 1 8011) LMP: (test code = 03/16/17 8021) SPECIMEN ADEQUACY: (NOTE) (test code = 74579) INTERPRETATION: (test NO EPITHELIAL code = 38276) ABNORMALITY SEE BELOW SYSTEM VALIDATION ENGINEER: LITO Skaggs(ASCP) (test code = 8101) QC TECHNOLOGIST: Jg Humphrey, (test code = 8111) CT(ASCP)IAC LOCATION: (test code (NOTE) = 27687) CPT: (test code = (NOTE) 8140) PAP TEST, THINPREP, [id number] 00:00:00 Test Item Value Reference Range Interpretation Comments SOURCE: (test code = Cervical/Endocervical 8001) SLIDES: (test code = 1 8011) LMP: (test code = 03/16/17 8021) SPECIMEN ADEQUACY: (NOTE) (test code = 54581) INTERPRETATION: (test NO EPITHELIAL code = 89300) ABNORMALITY SEE BELOW SYSTEM VALIDATION ENGINEER: LITO Skaggs(ASCP) (test code = 8101) QC TECHNOLOGIST: Jg Humphrey, (test code = 8111) CT(ASCP)IAC LOCATION: (test code (NOTE) = 11207) CPT: (test code = (NOTE) 8140) GC AND CHLAMYDIA AMPLIFIED, [id number] 00:00:00 Test Item Value Reference Range Interpretation Comments GONORRHEA, TMA (test code = 44067) NEGATIVE CHLAMYDIA, TMA (test code = 54882) NEGATIVE GC AND CHLAMYDIA AMPLIFIED, [id number] 00:00:00 Test Item Value Reference Range Interpretation Comments GONORRHEA, TMA (test code = 83452) NEGATIVE CHLAMYDIA, TMA (test code = 85591) NEGATIVE HIV AB/AG COMBO RFLX [id number] 00:00:00 Test Item Value Reference Range Interpretation Comments HIV 1/2 4TH GEN, RFLX CONF (test NON-REACTIVE code = 3514) HIV AB/AG COMBO RFLX [id number] 00:00:00 Test Item Value Reference Range Interpretation Comments HIV 1/2 4TH GEN, RFLX CONF (test NON-REACTIVE code = 3514) [id number] 00:00:00 Test Item Value Reference Range Interpretation Comments RPR RESULT (test code = NON-REACTIVE 3501) RPR TITER (test code = 3500) NOT INDIC. TITER [id number] 00:00:00 Test Item Value Reference Range Interpretation Comments RPR RESULT (test code = NON-REACTIVE 3501) RPR TITER (test code = 3500) NOT INDIC. TITER [id number] 00:00:00 Test Item Value Reference Range Interpretation Comments RPR RESULT (test code = NON-REACTIVE 3501) RPR TITER (test code = 3500) NOT INDIC. TITER ACUTE HEPATITIS [id number] 00:00:00 Test Item Value Reference Range Interpretation Comments HEPATITIS A IgM (test code = NON-REACTIVE 03057) HEPATITIS B CORE IgM (test code NON-REACTIVE = 4644) HEPATITIS B SURF AG (test code = NON-REACTIVE 2739) HEPATITIS C ANTIBODY (test code NON-REACTIVE = 4675) INTERPRETATION HEPATITIS A: (NOTE) (test code = 2552) INTERPRETATION HEPATITIS B: (NOTE) (test code = 54711) INTERPRETATION HEPATITIS C: (NOTE) (test code = 34446) ACUTE HEPATITIS [id number] 00:00:00 Test Item Value Reference Range Interpretation Comments HEPATITIS A IgM (test code = NON-REACTIVE 44186) HEPATITIS B CORE IgM (test code NON-REACTIVE = 4644) HEPATITIS B SURF AG (test code = NON-REACTIVE 2739) HEPATITIS C ANTIBODY (test code NON-REACTIVE = 4675) INTERPRETATION HEPATITIS A: (NOTE) (test code = 2552) INTERPRETATION HEPATITIS B: (NOTE) (test code = 26384) INTERPRETATION HEPATITIS C: (NOTE) (test code = 71248)"
[2022-09-16 17:41] LABS: Urine Blood Trace-intact (Negative); Urine Glucose Negative (Negative); Urine Protein Negative (Negative); Urine Specific Gravity 1.015 (1.005-1.030)
--- NOTE | 2022-09-16 17:45 | EDPHYS ---
Physician Documentation [facility] Name: Lilia Nunez Age: 27 yrs Sex: Female : 1995 Arrival Date: 09/16/2022 Time: 17:11 Bed 11 Private MD: ED Physician Blaze Quiñones HPI: 09/16 17:51 This 27 yrs old Female presents to ER via Ambulatory with complaints of snw Toothache, Doesn't Feel Right. 17:51 The patient presents with pain. The problem is located in the upper left first molar snw (#14). Onset: The symptoms/episode began/occurred acutely. Duration: The symptoms are continuous. Associated signs and symptoms: The patient has no apparent associated signs or symptoms. Severity of symptoms: At their worst the symptoms were moderate. It is unknown whether or not the patient has had similar symptoms in the past. The patient has not recently seen a physician. pt has been taking too many aspirin/NSAID for pain. Poison control contacted. . 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 - Social history:: Smoking status: . ROS: 17:47 Constitutional: Negative for fever, chills, and weight loss, Eyes: Negative for injury, snw pain, redness, and discharge, Neck: Negative for injury, pain, and swelling, Cardiovascular: Negative for chest pain, palpitations, and edema, Respiratory: Negative for shortness of breath, cough, wheezing, and pleuritic chest pain, Abdomen/GI: Negative for abdominal pain, nausea, vomiting, diarrhea, and constipation, Back: Negative for injury and pain, : Negative for injury, bleeding, discharge, and swelling, MS/Extremity: Negative for injury and deformity, Skin: Negative for injury, rash, and discoloration, Neuro: Negative for headache, weakness, numbness, tingling, and seizure. 17:47 ENT: Positive for dental pain. Exam: 17:47 Constitutional: This is a well developed, well nourished patient who is awake, alert, snw and in no acute distress. Head/Face: Normocephalic, atraumatic. Eyes: Pupils equal round and reactive to light, extra-ocular motions intact. Lids and lashes normal. Conjunctiva and sclera are non-icteric and not injected. Cornea within normal limits. Periorbital areas with no swelling, redness, or edema. Neck: Trachea midline, no thyromegaly or masses palpated, and no cervical lymphadenopathy. Supple, full range of motion without nuchal rigidity, or vertebral point tenderness. No Meningismus. Chest/axilla: Normal chest wall appearance and motion. Nontender with no deformity. No lesions are appreciated. Cardiovascular: Regular rate and rhythm with a normal S1 and S2. No gallops, murmurs, or rubs. Normal PMI, no JVD. No pulse deficits. Respiratory: Lungs have equal breath sounds bilaterally, clear to auscultation and percussion. No rales, rhonchi or wheezes noted. No increased work of breathing, no retractions or nasal flaring. Abdomen/GI: Soft, non-tender, with normal bowel sounds. No distension or tympany. No guarding or rebound. No evidence of tenderness throughout. Back: No spinal tenderness. No costovertebral tenderness. Full range of motion. Skin: Warm, dry with normal turgor. Normal color with no rashes, no lesions, and no evidence of cellulitis. MS/ Extremity: Pulses equal, no cyanosis. Neurovascular intact. Full, normal range of motion. Neuro: Awake and alert, GCS 15, oriented to person, place, time, and situation. Cranial nerves II-XII grossly intact. Motor strength 5/5 in all extremities. Sensory grossly intact. Cerebellar exam normal. Normal gait. Psych: Awake, alert, with orientation to person, place and time. Behavior, mood, and affect are within normal limits. 17:47 ENT: External ear(s): are unremarkable, Mouth: is normal, Posterior pharynx: is normal, Dental exam: pain, that is moderate, specifically in the upper left first molar (#14). Vital Signs: 17:13 BP 112 / 94; Pulse 73; Resp 16; Temp 98.3; Pulse Ox 100% on R/A; iw MDM: 17:27 Patient medically screened. snw 17:49 Differential diagnosis: dental caries, gingivitis, dental abscess, ASA overdose. Data snw reviewed: vital signs, nurses notes, lab test result(s), urinalysis, pH 7.0. I considered the following discharge prescriptions or medication management in the emergency department Medications were administered in the Emergency Department. See MAR. Test considered but Not performed: Labs: no tinnitus, pH of urine alkaline, no ketones. Counseling: I had a detailed discussion with the patient and/or guardian regarding: the historical points, exam findings, and any diagnostic results supporting the discharge/admit diagnosis, the presence of at least one elevated blood pressure reading (>120/80) during this emergency department visit, lab results, the need for outpatient follow up, to return to the emergency department if symptoms worsen or persist or if there are any questions or concerns that arise at home. Special discussion: I have referred the patient to see his PCP for further evaluation of high blood pressure. Based on the history and exam findings, there is no indication for further emergent testing or inpatient evaluation. I discussed with the patient/guardian the need to see a dentist for further evaluation of the symptoms. I discussed with the patient/guardian the need to see the primary care provider for further evaluation of the symptoms. 09/16 17:27 Order name: Urine Drug Screen snw 09/16 17:27 Order name: Urine Microscopic Only; Complete Time: 17:53 snw 09/16 17:27 Order name: Urine Dipstick-Ancillary (obtain specimen); Complete Time: 17:37 snw 09/16 17:42 Order name: Urine Dipstick-Ancillary; Complete Time: 17:42 EDMS 09/16 17:53 Order name: Urine --Ancillary (enter results) kj1 09/16 17:27 Order name: Urine Test (obtain specimen); Complete Time: 17:37 snw Administered Medications: 17:42 Drug: Ancef (cefazolin) 1 grams Route: IM; Site: right vastus lateralis; ll1 17:57 Follow up: Response: No adverse reaction ll1 Disposition: 18:19 Co-signature as Attending Physician, Blaze Quiñones MD I agree with the assessment and kdr plan of care. Disposition Summary: 09/16/22 17:45 Discharge Ordered Location: Home snw Condition: Stable snw Diagnosis - Dental caries, unspecified snw Followup: snw - With: Emergency Department - When: As needed - Reason: Worsening of condition Followup: snw - With: Private Physician - When: 5 - 6 days - Reason: Recheck today's complaints, Continuance of care, Re-evaluation by your physician Discharge Instructions: - Discharge Summary Sheet snw - Dental Caries, Adult snw - Dental Pain snw - Diet and Dental Disease snw - Rehydration, Adult snw Forms: - Medication Reconciliation Form snw - Thank You Letter snw - Antibiotic Education snw - Prescription Opioid Use snw - Work release form ss Prescriptions: - chlorhexidine gluconate 0.12 % Mucous Membrane mouthwash - place 15 milliliter by MUCOUS MEMBRANE route 2 times per day after brushing snw teeth, swish in mouth for 30 seconds then spit out; 480 milliliter; Refills: 0, Product Selection Permitted - Clindamycin HCl 300 mg Oral Capsule - take 1 capsule by ORAL route every 8 hours for 10 days; 30 capsule; Refills: 0, snw Product Selection Permitted - Tramadol 50 mg Oral Tablet - take 1 tablet by ORAL route every 8 hours as needed; 12 tablet; Refills: 0, snw Product Selection Permitted Signatures: Dispatcher [employer] EDMS Blaze Quiñones MD MD kdr Waters, Shelly, NARCOTICS DETECTIVE-C NARCOTICS DETECTIVE-Csnw Marilyn Lovett, RN RN iw Estefany Yanes RN RN ll1 Corrections: (The following items were deleted from the chart) 17:15 17:15 Home Meds: None; [facility]
--- NOTE | 2022-09-16 17:45 | ER ---
Nurse's Notes [facility] Name: Lilia Nunez Age: 27 yrs Sex: Female : 1995 Arrival Date: 09/16/2022 Time: 17:11 Bed 11 Private MD: Diagnosis: Dental caries, unspecified Presentation: 09/16 17:13 Chief complaint: Patient states: i have a toothache and I took 5 aleve last night and iw five Excedrin today and she put some numbing medicine on her tooth today and they told me i took too much medicine and now I don't feel good, my tooth has been hurting for three days. Coronavirus screen: At this time, the client does not indicate any symptoms associated with coronavirus-19. Ebola Screen: Patient negative for fever greater than or equal to 101.5 degrees Fahrenheit, and additional compatible Ebola Virus Disease symptoms Patient denies exposure to infectious person. Patient denies travel to an Ebola-affected area in the 21 days before illness onset. No symptoms or risks identified at this time. Initial Sepsis Screen: Does the patient meet any 2 criteria? No. Patient's initial sepsis screen is negative. Does the patient have a suspected source of infection? No. Patient's initial sepsis screen is negative. Risk Assessment: Do you want to hurt yourself or someone else? Patient reports no desire to harm self or others. Onset of symptoms was September 16, 2022. 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 - Social history:: Smoking status: . Screenin:43 [facility] ED Fall Risk Assessment (Adult) Score/Fall Risk Level 0 - 2 = Low Risk ll1 Oriented to surroundings, Maintained a safe environment, Educated pt \T\ family on fall prevention, incl call for assistance when getting out of bed, Hourly rounding (assess needs \T\ fall precautionary measures) done. Abuse screen: Denies threats or abuse. Nutritional screening: No deficits noted. Tuberculosis screening: No symptoms or risk factors identified. Assessment: 17:42 General: Appears uncomfortable, Behavior is cooperative, appropriate for age, anxious. ll1 Pain: Complains of pain in L upper jaw Quality of pain is described as aching, throbbing, Pain began 2-3 days ago. Neuro: Reports dizziness. Cardiovascular: No deficits noted. Respiratory: No deficits noted. EENT: Reports pain in left jaw. 17:57 Reassessment: No changes from previously documented assessment. Patient and/or family ll1 updated on plan of care and expected duration. Pain level reassessed. Patient is alert, oriented x 3, equal unlabored respirations, skin warm/dry/pink. Vital Signs: 17:13 BP 112 / 94; Pulse 73; Resp 16; Temp 98.3; Pulse Ox 100% on R/A; iw ED Course: 17:11 Patient arrived in ED. mr 17:15 Triage completed. iw 17:15 Arm band placed on. iw 17:24 Kell[facility] Benitez [facility]C [facility]. snw 17:24 Blaze Quiñones MD is Attending Physician. snw 17:31 Estefany Yanes, LYNETTE is Primary Nurse. ll1 17:37 Urine Microscopic Only Sent. ll1 17:37 Urine Drug Screen Sent. ll1 17:43 Patient has correct armband on for positive identification. Bed in low position. Call ll1 light in reach. Cardiac monitoring not applicable on this patient. 17:58 No provider procedures requiring assistance completed. Patient did not have IV access ll1 during this emergency room visit. Administered Medications: 17:42 Drug: Ancef (cefazolin) 1 grams Route: IM; Site: right vastus lateralis; ll1 17:57 Follow up: Response: No adverse reaction ll1 Medication: 17:43 VIS not applicable for this client. ll1 Outcome: 17:45 Discharge ordered by . snw 17:58 Discharged to home ambulatory. ll1 17:58 Condition: stable 17:58 Discharge instructions given to patient, Instructed on discharge instructions, follow up and referral plans. no drinking with medication, no driving heavy equipment, medication usage, Demonstrated understanding of instructions, follow-up care, medications, Prescriptions given X 3. 17:58 Patient left the ED. ll1 Signatures: Kellie Benitez FNP-C FNP-Nicole Stevens Irene, RN Estefany Bush RN RN ll1 Corrections: (The following items were deleted from the chart) 17:15 17:15 [place] Meds: None; irvin bryan
[2022-09-16 17:50] LABS: Urine Bacteria None Seen /HPF (<20); Urine RBC <5 /HPF (None Seen)
[2022-09-16 17:57] LABS: Barbiturates NEGATIVE (NEGATIVE); Benzodiazepines NEGATIVE (NEGATIVE); Cocaine NEGATIVE (NEGATIVE); METHAMPHETAM NEGATIVE (NEGATIVE); Methadone NEGATIVE (NEGATIVE); Opiates NEGATIVE (NEGATIVE); Phencyclidine NEGATIVE (NEGATIVE); THC Cannibis NEGATIVE (NEGATIVE)
[2022-09-16 18:05] LABS: Urine Specific Gravity/Preg 1.015 (1.005-1.030)
[2022-09-16 18:33] VITALS: BP 112/94; TEMP 98.3; O2SAT 100
== END 2022-09-16 17:58 | disposition home or self-care (01) ==
LOC: ER 17:09
DX: K02.9 Dental caries, unspecified (principal); F41.9 Anxiety disorder, unspecified; J45.909 Unspecified asthma, uncomplicated
CPT/HCPCS: 80307; 81003; 81015; 81025; 96372; 99283

== ENCOUNTER 2023-04-05 10:39 | Emergency (ER) | payer BC ==
--- OUTSIDE RECORDS SUMMARY | 2023-04-05 10:44 | XMS REPORT | Continuity of Care Document ---
:1995 Author Organization [facility] t Address [address] [place] [address] [place] [address] Care Team Providers Name Role Phone Dena Perry Primary Care Physician [phone] SREE LOPEZ Attending Clinician Unavailable Sree Lopez MD Attending Clinician QIANA VALDEZ Attending Clinician Unavailable Qiana Kinney Attending Clinician Elliot Fletcher Attending Clinician ELLIOT FRASER Attending Clinician Unavailable Amber Cardozo NP Attending Clinician Payers Payer Name Policy Type Policy Number Effective Date Expiration Date S ource MEDICAID PENDING PENDING 2021 00:00:00 Problems Condition Condition Condition Status Onset Resolution Last Treating Co mments Source Name Details Category Date Date Treatment Clinician Date No known No known Disease Unive rs active active ity of problems problems [facility] Allergies, Adverse Reactions, Alerts Allergy Allergy Status Severity Reaction(s) Onset Inactive Treating Comm ents Source Name Type Date Date Clinician NO KNOWN Drug Active Univers ALLERGIE Class ity of S [facility] Social History Social Habit Start Date Stop Date Quantity Comments Source History of tobacco Cigarette Smoker University of use [facility] Exposure to 2022-08-31 2022-09-10 Not sure University of SARS-CoV-2 (event) 00:00:00 12:55:00 [facility] Cigarettes smoked 2017-07-12 2017-07-12 Univers ity of current (pack per 00:00:00 00:00:00 [facility] ) - Reported Branch Tobacco use and 2017-07-12 2017-07-12 Smokeless Universit y of exposure 00:00:00 00:00:00 tobacco non-user [facility] Sex Assigned At [birth year] Universit y of 00:00:00 00:00:00 [facility] Smoking Status Start Date Stop Date Source Smokes tobacco daily 2017-07-12 00:00:00 [facility] ity of [facility] Medications Ordered Filled Start Stop Current Ordering Indication Dosage Frequency Signature Comments Components Source Medication Medication Date Date Medication? Clinician (SIG) Name Name LORazepam No 1mg 1 mg, Univer s (ATIVAN) 09-10 Oral, ity of tablet 1 mg 19:30: 19:43 [place] dose, On Medical Fri Branch 09/10/22 at 1330, VIVIEN hydrOXYzine Yes [id number] 25mg Take 1 Univers (VISTARIL) 09-10 capsule by ity of 25 mg 00:00: mouth 2 [place] capsule 00 (two) Medical times [place] daily as needed for Anxiety. Dose 2021-0 No Unknown 6-02 00:00: 00 [...] Dose 2022-0 No Unknown 3-09 00:00: 00 cefTRIAXone 2020-08- No 500mg 500 mg, U nivers (ROCEPHIN) 10-26 12-28 Intramuscu it y of injection 03:45: 02:59 lar, ONCE, [place] 500 mg 00 :00 1 dose, On [facility] 08/24/21 at 2145, VIVIEN
Re ason for Anti-Infec tive: Documented Infection< br>Documen héctor Infection Site: Pelvic
Duration of Therapy: 7 days NaCl 0.9% 2020-08- No 1000mL at 999 Uni vers (NS) bolus 2-28 12-28 mL/hr, ity of infusion 02:00: 02:45 1,000 mL, [place] as 1,000 mL 00 :00 IV Medical Infusion, Branch ONCE, 1 dose, On Tue08/24/21 at 2000, VIVIEN doxycycline 2020-08- No [id number] 100mg Take 1 Univers hyclate 100 10-25 [...] Indication s: acute pain clindamycin 2020- No [id number] 450mg Take 3 Univers 150 mg 03-26 08-09 capsules ity of capsule 00:00: 04:59 by mouth 3 [place] as 00 :00 (three) Medical times Branch daily for 10 days. dicyclomine Yes 20mg 20 mg, Univ ers (BENTYL) 4-14 Intramuscu ity o f injection 13:00: lar, QID, [place] as 20 mg 00 First dose Medical on Tue Branch 12/10/20 at 0800, Until Discontinu ed, Routine ketorolac 2020- No 30mg 30 mg, Unive rs (TORADOL) 4-14 04-14 Slow IV ity of injection 04:45: 03:51 Push, [place] 30 mg 00 :00 ONCE, 1 Medical dose, [facility] Branch 12/09/20 at 2345, Routine
bioinformatics team member approving Restricted medication : AMBER CARDOZO dicyclomine Yes [id number] 20mg Take 1 Univers 20 mg 12-10 [id number] tablet by ity of tablet 00:00: mouth 4 [place] 00 (four) Medical times Branch daily as needed for Abdominal pain. dicyclomine 2020- No [id number] 20mg Take 1 Univers 20 mg 12-10 [id number] tablet by ity of tablet 00:00: 00:00 mouth 4 [place] 00 :00 (four) Medical times [place] daily as needed for Abdominal pain. indomethaci 2020- No [id number] 50mg Take 1 Univers n 50 mg 12-10 [id number] capsule by ity of capsule 00:00: 04:59 mouth 2 [place] 00 :00 (two) Medical times [place] daily with meals for 7 days. Flonase [...] as 5) 5-325 mg 00 :00 dose, [facility] Med ical tablet 1 06/16/20 Branch tablet at 1700, VIVIEN ketorolac 2019-08- No 60mg 60 mg, Unive rs (TORADOL) 06-16 Intramuscu ity of injection 22:00: 21:07 lar, ONCE, [place] 60 mg 00 :00 1 dose, Medical [facility] Branch 06/16/20 at 1700, VIVIEN
Fa culty member approving Restricted medication : EMERGENCY ROOM, penicillin 2019-08 2020- No [id number] 500mg Take 1 Univers v potassium 0-19 [...] Completed Unive rsity of PFIZER VACCINE 00:00:00 [facility] SARS-COV-2 COVID-19 2021-01-17 Completed Unive rsity of PFIZER VACCINE 00:00:00 [facility] SARS-COV-2 COVID-19 2021-01-17 Completed Unive rsity of PFIZER VACCINE 00:00:00 [facility] SARS-COV-2 COVID-19 2020-12-20 Completed Unive rsity of PFIZER VACCINE 00:00:00 [facility] SARS-COV-2 COVID-19 2020-12-20 Completed Unive rsity of PFIZER VACCINE 00:00:00 [facility] SARS-COV-2 COVID-19 2020-12-20 Completed Unive rsity of PFIZER VACCINE 00:00:00 [facility] Influenza, 2017-08-24 Completed seasonal, inj 00:00:00 Hep A-Hep B 2017-04-06 Completed 00:00:00 Vital Signs Vital Name Observation Time Observation Value Comments Source Systolic blood 2022-09-10 18:57:00 180 mm[Hg] Univer sity of pressure [facility] Diastolic blood 2022-09-10 18:57:00 115 mm[Hg] Unive rsity of pressure [facility] Heart rate 2022-09-10 18:57:00 90 /min [facility] Body temperature 2022-09-10 18:57:00 36.83 Ariane [facility] Res[facility] rate 2022-09-10 18:57:00 20 /min [facility] Body height 2022-09-10 18:57:00 157.5 cm [facility] Body weight 2022-09-10 18:57:00 79.379 kg [facility] BMI 2022-09-10 18:57:00 32.01 kg/m2 [facility] Oxygen saturation in 2022-09-10 18:57:00 99 /min University Arterial blood by [facility] Pulse oximetry Branch Systolic blood 2021-08-25 02:00:00 120 mm[Hg] Univer sity of pressure [place] [facility] Diastolic blood 2021-08-25 02:00:00 82 mm[Hg] Unive rsity of pressure [place] [facility] Heart rate 2021-08-25 02:00:00 82 /min Universi ty of [place] [facility] Respiratory rate 2021-08-25 02:00:00 15 /min Univ ersity [facility] [place] [facility] Oxygen saturation in 2021-08-25 02:00:00 100 /min University of Arterial blood by [place] Medi juan m Pulse oximetry Branch Body temperature 2021-08-25 00:45:00 37.17 Ariane Univ ers[facility] [place] [facility] Body weight 2021-08-25 00:45:00 86.183 kg Universi ty [facility] [place] [facility] BMI 2021-08-25 00:45:00 34.75 kg/m2 Universi ty [facility] [place] [facility] Systolic blood 2021 20:13:00 108 mm[Hg] Univer sity of pressure [place] [facility] Diastolic blood 2021 20:13:00 86 mm[Hg] Unive rsity of pressure [place] [facility] Heart rate 2021 20:13:00 90 /min Universi ty [facility] [place] [facility] Body temperature 2021 20:13:00 37.5 Ariane Univ ers[facility] [place] [facility] Respiratory rate 2021 20:13:00 18 /min Univ ers[facility] [place] [facility] Body height 2021 20:13:00 157.5 cm Universi ty [facility] [place] [facility] Body weight 2021 20:13:00 88.905 kg Universi ty [facility] [place] [facility] BMI 2021 20:13:00 35.85 kg/m2 [facility] [place] [facility] Oxygen saturation in 2021 20:13:00 100 /min University of Arterial blood by [place] Medi juan m Pulse oximetry Branch Systolic blood 2020-12-10 00:00:00 120 mm[Hg] Univer sity of pressure [place] [facility] Diastolic blood 2020-12-10 00:00:00 74 mm[Hg] Unive rsity of pressure [place] [facility] Heart rate 2020-12-10 00:00:00 71 /min Universi ty [facility] [place] [facility] Body temperature 2020-12-10 00:00:00 37.5 Ariane Univ ersity [facility] [place] [facility] Respiratory rate 2020-12-10 00:00:00 18 /min Univ ers[facility] [place] [facility] Body weight 2020-12-10 00:00:00 86.183 kg Universi ty [facility] [place] [facility] BMI 2020-12-10 00:00:00 34.75 kg/m2 [facility]i ty [facility] [place] [facility] Oxygen saturation in 2020-12-10 00:00:00 97 /min University of Arterial blood by [facility] Pulse oximetry Branch Systolic blood 2020-12-10 00:00:00 120 mm[Hg] Univer sity of pressure [place] [facility] Diastolic blood 2020-12-10 00:00:00 74 mm[Hg] Unive rsity of pressure [place] [facility] Heart rate 2020-12-10 00:00:00 71 /min Universi ty [facility] [place] [facility] Body temperature 2020-12-10 00:00:00 37.5 Ariane Univ [facility] [place] [facility] Respiratory rate 2020-12-10 00:00:00 18 /min Univ [facility] [place] [facility] Body weight 2020-12-10 00:00:00 86.183 kg Universi ty [facility] [place] [facility] BMI 2020-12-10 00:00:00 34.75 kg/m2 [facility] [place] [facility] Oxygen saturation in 2020-12-10 00:00:00 97 /min University of Arterial blood by [facility] Pulse oximetry Branch Systolic blood 2020-06-16 20:21:00 132 mm[Hg] Univer sity of pressure [place] [facility] Diastolic blood 2020-06-16 20:21:00 74 mm[Hg] Unive rsity of pressure [place] [facility] Heart rate 2020-06-16 20:21:00 82 /min [facility]i ty [facility] [place] [facility] Body temperature 2020-06-16 20:21:00 36.72 Ariane Univ [facility] [place] [facility] Respiratory rate 2020-06-16 20:21:00 20 /min Univ [facility] [place] [facility] Body height 2020-06-16 20:21:00 157.5 cm [facility]i [facility] [place] [facility] Body weight 2020-06-16 20:21:00 86.183 kg [facility] [place] [facility] BMI 2020-06-16 20:21:00 34.75 kg/m2 [facility] [place] [facility] Oxygen saturation in 2020-06-16 20:21:00 100 /min University of Arterial blood by [place] Medi juan m Pulse oximetry Branch Systolic blood 2020-06-16 20:21:00 132 mm[Hg] Univer sity of pressure [facility] Diastolic blood 2020-06-16 20:21:00 74 mm[Hg] Unive rsity of pressure [facility] Heart rate 2020-06-16 20:21:00 82 /min Universi ty of [facility] Body temperature 2020-06-16 20:21:00 36.72 Ariane Univ ersity of [facility] Respiratory rate 2020-06-16 20:21:00 20 /min Univ ersity of [facility] Body height 2020-06-16 20:21:00 157.5 cm Universi ty of [facility] Body weight 2020-06-16 20:21:00 86.183 kg Universi ty of [facility] BMI 2020-06-16 20:21:00 34.75 kg/m2 Universi ty [facility] Oxygen saturation in 2020-06-16 20:21:00 100 /min University of Arterial blood by [facility] Pulse oximetry Branch BP Systolic 2021-11-04 11:02:00 [...] Performed POCT TEST 2022-09-10 19:42:00 Sree Lopez [facility] URINE DRUG (IMMUNOASSAY) 2022-09-10 19:41:00 Sree Lopez [facility] SCREEN URINALYSIS 2022-09-10 19:41:00 Sree Lopez Reynolds o f [facility] CONSENT/REFUSAL FOR 2022-09-10 18:46:57 Doctor Unassigned, No Un iversity of [place] DIAGNOSIS AND TREATMENT Name [facility] POCT TEST 2021-08-25 01:28:00 Qiana Valdez [facility] BASIC METABOLIC PANEL 2021-08-25 01:26:00 [facility], K, CL, CO2, Medical Branch GLUCOSE, BUN, CREATININE, CA) CBC WITH DIFF 2021-08-25 01:26:00 [facility] 2021-08-25 01:26:00 Jagdeep [facility] CONSENT/REFUSAL FOR 2021-08-25 00:39:27 Doctor Unassigned, No [facility] [place] [facility] CONSENT/REFUSAL FOR 2021 20:08:24 Doctor Unassigned, No [facility] [place] [facility] ABDOMEN PELVIS WO 2020-12-10 04:09:17 Amber Cardozo [facility] CONTRAST [facility] URINE DRUG (IMMUNOASSAY) 2020-12-10 03:57:00 [facility] Cardozo [facility] [place] [facility] PANEL [facility] POCT TEST 2020-12-10 01:46:00 Johnnie Olivarez [facility] LIPASE 2020-12-10 01:44:00 Johnnie Olivarez [facility] COMP. METABOLIC PANEL 2020-12-10 01:44:00 Johnnie Olivarez [facility] ([id number]) Medical [place] CBC WITH DIFF 2020-12-10 01:44:00 Johnnie Olivarez [facility] URINALYSIS 2020-12-10 01:44:00 Johnnie Olivarez [facility] NOTICE OF PRIVACY 2020-12-09 23:56:35 [facility], [facility] CONSENT/REFUSAL FOR 2020-12-09 23:55:46 Doctor Unassigned, No [facility] [place] DIAGNOSIS AND TREATMENT Name Medical Branch CONSENT/REFUSAL FOR 2020-06-16 20:19:26 [facility]igned, No [facility] Name [facility] Branch Plan of Care Planned Activity Planned Date Details Comments Source Goal Plan of Care Note [code = 35714-5] Goal Plan of Care Note [code = 07507-5] Goal Plan of Care Note [code = 41683-8] Goal Plan of Care Note [code = 79766-3] Goal Plan of Care Note [code = 55293-3] Goal Plan of Care Note [code = 80907-5] Goal Plan of Care Note [code = 50313-9] Goal Plan of Care Note [code = 00316-6] Goal Plan of Care Note [code = 60236-3] Goal Plan of Care Note [code = 11918-8] Goal Plan of Care Note [code = 23229-4] Goal Plan of Care Note [code = 48444-6] Goal Plan of Care Note [code = 01545-1] Goal Plan of Care Note [code = 27017-9] Goal Plan of Care Note [code = 49848-0] Goal Plan of Care Note [code = 09063-8] Goal Plan of Care Note [code = 76949-4] Goal Plan of Care Note [code = 92659-3] Goal Plan of Care Note [code = 73053-6] Goal Plan of Care Note [code = 73069-7] Goal Plan of Care Note [code = 14260-6] Goal Plan of Care Note [code = 08735-1] Goal Plan of Care Note [code = 22800-6] Goal Plan of Care Note [code = 36980-3] Goal Plan of Care Note [code = 52049-9] Goal Plan of Care Note [code = 61907-4] Encounters Start End Encounter Admission Attending Care Care Encounter Source Date/Time Date/Time Type Type Clinicians Facility Department ID 2022-09-11 Outpatient [facility] [id number] [place] 22:37:13 [id number] Health 2023-03-15 2023-03-15 Outpatient [facility] [id number] Mariusz 08:16:23 08:16:23 0718 F Karlo 2022-09-10 2022-09-10 Emergency X XIN, [facility] [id number] Univers 12:58:00 16:23:00 SREE itmaegan [facility] 2022-09-10 2022-09-10 Emergency Vassherry, [facility] [id number] Univers 12:58:00 16:23:00 Sree Mendoza AAYUSH [id number] i ty of [place] 4.2.7.2.686 [facility] [id number] [address] 2022-04-02 2022-04-02 Outpatient [id number] 00:00:00 00:00:00 Visit [id number] 2021-08-24 2021-08-24 Emergency X JAGDEEP, [facility] ERT [id number] Univers 18:46:00 21:11:00 QIANA jimenez [facility] 2021-08-24 2021-08-24 [facility] [id number] Univers 18:46:00 21:11:00 Qiana LOONEY [id number] i ty of [place] 4.2.7.2.686 [facility] [id number] [address] 2021 2021 [facility] [id number] Univers 15:14:00 16:17:00 Elliot Valdes Aayush [id number] i ty of [place] 4.2.7.2.686 [facility] [id number] [address] 2021 2021 Emergency [facility] [id number] Univers 15:08:00 15:08:00 ELLIOT jimenez [facility] 2020-12-09 2020-12-10 Emergency [facility] [id number] Univers 19:02:00 01:46:00 Amber Looney [id number] ity of [place] 4.2.7.2.686 [facility] [id number] [address] 2020-12-09 2020-12-10 Emergency Drever, [facility] [id number] 19:02:00 01:46:00 Amber Looney [id number] [place] 4.2.7.2.686 [place] [id number] [facility] 2020-12-09 2020-12-09 Emergency X [facility] ERT [id number] Univers 18:54:00 [facility]:54:[facility] 2020-06[facility]16 2020-06-16 Emergency Valdez, [facility] [id number] Univers 15:24:00 17:00:00 Qiana Looney [id number] [facility] 4.2.7.2.686 [facility] [id number] [address] 2020-06-16 2020-06-16 Emergency Valdez, [facility] [id number] 15:24:00 17:00:00 Qiana Looney 350.1.13.10 [place] 4.2.7.2.686 [place] [id number] [facility] 2020-06-16 2020-06-16 Emergency X [place] ERT [id number] Univers 15:18:00 15:18:00 [facility] 2020-01-27 2020-01-27 Emergency X [facility] ERT [id number] Univers 14:14:00 14:14:00 [facility] Results Test Description Test Time Test Comments Results Result Comments Source POCT TEST 2022-09-10 19:42:00 Test Item Value Reference Range Interpretation Comme nts POCT PREG (test code = 1605) negative On board controls acceptable with C Line (test code = 3574) present POCT PREG LOT # (test code = 3575) [id number] POCT PREG TEST DATE (test code = 3576) 11-27-2023 Lab Interpretation (test code = 62600-2) [facility], [id number] 09:47:06 Test Item Value Reference Range Interpretation Comments SOURCE: (test Cervical/Endoce code = 8001) rvical SLIDES: (test 1 code = 8011) LMP: (test code 10/27/2021 = 8021) SPECIMEN (NOTE) Satisfactory f or ADEQUACY: (test evaluation. code = 89375) Endocervical cells/transform ation zone component present. INTERPRETATION: NILM/NO EPITH. (test code = ABNORMALITY;SEE 81141) BELOW -------- - NEGATIVE FOR INTRAEPITHELIAL LESION OR MALIGNANCY ( NILM) -------- -------- -------- ---- STUDENT RECORDS COORDINATOR Nery Macedo : (test code = 8101) LOCATION: (test (NOTE) Specimens pr ocessed and code = 71727) interpreted at [facility], [address] [place] [address] 8440 4, Phone: , CLIA: [id number] CPT: (test code (NOTE) 75278 UNLESS OTHERWISE = 8140) INDICATED, COMP UTER AIDED AND CYTOTECHNOLOGIS T SCREENING PERFO RMED. The Pap test is a screening test with an inherent, but l ow probability of error. Your patient sh ould be reminded to con sult you immediately if she experiences any suspicious sign s or symptoms, regar dless of her Pap test re sult. An alternate repor t format containing imag es or consolidated pr ior Pap history is avai lable as applicable. UNL ESS OTHERWISE INDIC ATED, ALL TESTING PER FORMED ATCLINICAL PATH OLOGY [facility], [place]. [address] [place] [address] LABORATOR Y DIRECTOR: ELIF MADISON M.D. CLIA NUMBER [id number] CAP ACCREDITATION N O. [id number] PAP TEST, THINPREP, [id number] 00:00:00 Test Item Value Reference Range Interpretation Comments SOURCE: (test code = Cervical/Endocervical 8001) SLIDES: (test code = 1 8011) LMP: (test code = 8021) 10/27/2021 SPECIMEN ADEQUACY: (NOTE) (test code = 23830) INTERPRETATION: (test NILM/NO EPITH. code = 91652) ABNORMALITY;SEE BELOW STUDENT RECORDS COORDINATOR: (test Nery Macedo code = 8101) LOCATION: (test code = (NOTE) 31063) CPT: (test code = 8140) (NOTE) PAP TEST, THINPREP, [id number] 00:00:00 Test Item Value Reference Range Interpretation Comments SOURCE: (test code = Cervical/Endocervical 8001) SLIDES: (test code = 1 8011) LMP: (test code = 8021) 10/27/2021 SPECIMEN ADEQUACY: (NOTE) (test code = 01408) INTERPRETATION: (test NILM/NO EPITH. code = 32669) ABNORMALITY;SEE BELOW STUDENT RECORDS COORDINATOR: (test Nery Macedo code = 8101) LOCATION: (test code = (NOTE) 46089) CPT: (test code = 8140) (NOTE) VAGINAL PATHOGENS DNA [id number] 14:50:28 Test Item Value Reference Range Interpretation Comments DAMIR SPECIES (test NEGATIVE NEGATIVE code = ) G. VAGINALIS (test NEGATIVE NEGATIVE code = 19168) T. VAGINALIS (test NEGATIVE NEGATIVE UNLESS O THERWISE code = 38793) INDICATED, ALL TESTING PERFORMED [facility] PATHOLOGY [facility], [facility]. [address] [place] [address] 4 LABORATORY DIRE CTOR: ELIF BLACK M.D. CLIA NUMBER [id number] [place] [id number] 06:56:09 Test Item Value Reference Range Interpretation Comments RPR RESULT (test code = NON-REACTIVE NON-REACTIVE 3501) RPR TITER (test code = 3500) NOT INDIC. TITER NOT INDIC. HIV 1/2 4TH GEN, RFLX [id number] 05:54:17 Test Item Value Reference Range Interpretation Comments HIV 1/2 4TH GEN, RFLX CONF (test NON-REACTIVE NON-REACTIVE code = 3514) HEPATITIS PANEL, [id number] 05:54:17 Test Item Value Reference Range Interpretation Comments HEPATITIS A IgM (test NON-REACTIVE NON-REACTIVE code = 97919) HEPATITIS B CORE IgM NON-REACTIVE NON-REACTIVE (test code = 4644) HEPATITIS B SURF AG NON-REACTIVE NON-REACTIVE (test code = 2739) HEPATITIS C ANTIBODY NON-REACTIVE NON-REACTIVE (test code = 4675) INTERPRETATION (NOTE) Hepatitis A HEPATITIS A: (test code sero logy shows no = 2552) evidence of acu te hepatitis A. INTERPRETATION (NOTE) Hepatitis B HEPATITIS B: (test code sero logy shows no = 29392) evidence of acu te hepatitis B and no indication of exposure to hepatitis B vir us in the previous jie eight months. INTERPRETATION (NOTE) Hepatitis C HEPATITIS C: (test code sero logy shows no = 03869) evidence of exposure to hepatitisC viru s at this time. I t can take up to 12 months after exposure tothe hepatitis C vir us for antibodies to become detectab le in the blood in certain patient s. HIV AB/AG COMBO RFLX [id number] 00:00:00 Test Item Value Reference Range Interpretation Comments HIV 1/2 4TH GEN, RFLX CONF (test NON-REACTIVE code = 3514) HIV AB/AG COMBO RFLX [id number] 00:00:00 Test Item Value Reference Range Interpretation Comments HIV 1/2 4TH GEN, RFLX CONF (test NON-REACTIVE code = 3514) ACUTE HEPATITIS [id number] 00:00:00 Test Item Value Reference Range Interpretation Comments HEPATITIS A IgM (test code = NON-REACTIVE 22560) HEPATITIS B CORE IgM (test code NON-REACTIVE = 4644) HEPATITIS B SURF AG (test code = NON-REACTIVE 2739) HEPATITIS C ANTIBODY (test code NON-REACTIVE = 4675) INTERPRETATION HEPATITIS A: (NOTE) (test code = 2552) INTERPRETATION HEPATITIS B: (NOTE) (test code = 16872) INTERPRETATION HEPATITIS C: (NOTE) (test code = 10826) ACUTE HEPATITIS [id number] 00:00:00 Test Item Value Reference Range Interpretation Comments HEPATITIS A IgM (test code = NON-REACTIVE 10553) HEPATITIS B CORE IgM (test code NON-REACTIVE = 4644) HEPATITIS B SURF AG (test code = NON-REACTIVE 2739) HEPATITIS C ANTIBODY (test code NON-REACTIVE = 4675) INTERPRETATION HEPATITIS A: (NOTE) (test code = 2552) INTERPRETATION HEPATITIS B: (NOTE) (test code = 82729) INTERPRETATION HEPATITIS C: (NOTE) (test code = 45208) [id number] 00:00:00 Test Item Value Reference Range Interpretation Comments RPR RESULT (test code = NON-REACTIVE 3501) RPR TITER (test code = 3500) NOT INDIC. TITER [id number] 00:00:00 Test Item Value Reference Range Interpretation Comments RPR RESULT (test code = NON-REACTIVE 3501) RPR TITER (test code = 3500) NOT INDIC. TITER [id number] 00:00:00 Test Item Value Reference Range Interpretation Comments RPR RESULT (test code = NON-REACTIVE 3501) RPR TITER (test code = 3500) NOT INDIC. TITER VAGINAL PATHOGENS DNA [id number] 00:00:00 Test Item Value Reference Range Interpretation Comments DAMIR SPECIES (test code = 91563) NEGATIVE G. VAGINALIS (test code = 50658) NEGATIVE T. VAGINALIS (test code = 47914) NEGATIVE VAGINAL PATHOGENS DNA [id number] 00:00:00 Test Item Value Reference Range Interpretation Comments DAMIR SPECIES (test code = ) NEGATIVE G. VAGINALIS (test code = 46055) NEGATIVE T. VAGINALIS (test code = 96897) NEGATIVE SARS-CoV-2 (COVID-19), RT-PCR/[id number] 13:12:43 Test Item Value Reference Interpretation Comments Range SARS-CoV-2 NEGATIVE SEE NOTE SARS-CoV-2 RNA NOT INTERPRETATION DETECTEDNegat fidencio (test code = 67027) results do not preclude SARS-C oV-2 infection [...] (test code = NASOPHARYNGEAL [place]: [place] [address]) Ronit Jagdeep [place] l-Time RT-PCR. The exp ected result or refer ence range is NEGATI VE (Not Detected). For more information reg arding COVID-19 testin g to include clinicalinforma tion, methodology det ail, intended use, F DA authorization andrecommended fact sheets for krissy ents or healthcare prov iders, see NewTest Announcement: SARS-CoV-2 (COV ID-19) by NAAT at URL below (note,fact shee ts are provided by met hod given in report:https:// [email or web address]/clinic ians/cl ient-communicat ions/ Alternatively, see downloadable PD F fact sheet at:https://www. [employer]/COVID-19-R T-PCR UNLESS OTHERWIS E INDICATED, ALL TESTING PERFORMED [facility], [address] [place] [address] DIRECTOR: ELIF MADISON M.D. CLIA NUMBER [id number] CAP ACCREDITATION N O. [id number] SARS-CoV-2 (COVID-19) by RT-PCR (HIGH RISK)2021-09-16 00:00:00 Test Item Value Reference Range Interpretation Comments SARS-CoV-2 INTERPRETATION NEGATIVE (test code = 51873) SOURCE (test code = 45639) NASOPHARYNGEAL SARS-CoV-2 (COVID-19) by RT-PCR (HIGH RISK)2021-09-16 00:00:00 Test Item Value Reference Range Interpretation Comments SARS-CoV-2 INTERPRETATION NEGATIVE (test code = 75810) SOURCE (test code = 49047) NASOPHARYNGEAL SARS-CoV-2 (COVID-19), RT-PCR/[id number] 13:37:12 Test Item Value Reference Interpretation Comments Range SARS-CoV-2 PRESUMPTIVE SEE NOTE A NOTE: PRESUMPT FIDENCIO INTERPRETATION POSITIVE POSITIVE RESU LTS (test code = 64890) ARE MOST CONSISTENT WITH SARS-COV-2 NEAR THE LIMIT OF DETECTION OF TH E ASSAY. OTHER UNCOMMON POSSIBLECAUSES ARE A MUTATION IN O NE OF THE TARGET REGIONS, INFECT ION WITHANOTHER SARBECOVIRUS OR LABORATORY ISSU ES. CORRELATE WITH CLINICALHISTORY AND EPIDEMIOLOGIC FINDINGS. SOURCE (test code = NASOPHARYNGEAL Note: Methodology 19589) is Ronit Jagdeep Real-Time RT-PC R. The [...] provided by method given in report:https:// www. [employer] ans/client-comm unic ations/ Alternatively, see downloadable PD F fact sheet at:https://www. [employer]/COVID-1 9-RT -PCR Note: Methodology is Ronit Jagdeep [...] are provided by method given in report:https:// wwwBRES [employer]visors/[employer] ans/client-comm unic ations/ Alternatively, see downloadable PD F fact sheet at:https://[email or web address]/COVID-1 9-RT -PCR UNLESS OTHERWISE INDICATED, ALL TESTING PERFORM [facility], [facility]. [address] [place] [address] 4 SCIENTIFIC EDITOR: ELIF MADISON M.D. CLIA NUMBER [id number] CAP ACCREDITATION N O. [id number] SARS-CoV-2 (COVID-19) by RT-PCR (HIGH RISK)2021-09-09 00:00:00 Test Item Value Reference Range Interpretation Comments SARS-CoV-2 PRESUMPTIVE POSITIVE INTERPRETATION (test code = 90873) SOURCE (test code = NASOPHARYNGEAL 29585) SARS-CoV-2 (COVID-19) by RT-PCR (HIGH RISK)2021-09-09 00:00:00 Test Item Value Reference Range Interpretation Comments SARS-CoV-2 PRESUMPTIVE POSITIVE INTERPRETATION (test code = 42334) SOURCE (test code = NASOPHARYNGEAL 03522) BASIC METABOLIC PANEL (NA, K, CL, CO2, GLUCOSE, BUN, CREATININE, CA)2021-08-25 01:45:53 Test Item Value Reference Range Interpretation Comments NA (test code = 136 mmol/L 135-145 0103289457) K (test code = 4.1 mmol/L 3.5-5.0 3587003526) CL (test code = 102 mmol/L 98-108 9193340852) CO2 TOTAL (test code = 29 mmol/L 23-31 0572079411) AGAP (test code = 2-16 0460479017) BUN (test code = 9 mg/dL 7-23 2590270643) GLUCOSE (test code = 92 mg/dL 70-110 5781994484) CREATININE (test code = 0.54 mg/dL 0.50-1.04 2710302062) CALCIUM (test code = 8.5 mg/dL 8.6-10.6 L 0928196509) eGFR (test code = mL/min/1.73m2 0874849264) EMERALD (test code = EMERALD) Association of [...] tests). Lab Interpretation Abnormal (test code = 85000-4) [facility] WITH [id number] 01:34:37 Test Item Value Reference Range Interpretation Comments WBC (test code = See_Comment [Automated 0010-2) message] The sy stem which generated this result transmitted reference range : 4.30 - 11.10 10*3/?L. The reference range was not used to interpret this result as normal/abnormal . RBC (test code = See_Comment [Automated 219-8) message] The sy stem which generated this [...] RDW-SD (test code = 41.3 fL 39.0-49.9 20667-9) RDW-CV (test code = 12.7 % 12.0-15.5 788-0) PLT (test code = See_Comment [Automated 997-3) message] The sy stem which generated this result transmitted reference range : 166 - 358 10*3/ ?L. The reference r lexy was not used to interpret this result as normal/abnormal . MPV (test code = 9.1 fL 9.5-12.9 L 81454-2) NRBC/100 WBC (test See_Comment [Automat ed code = 4340954981) message] The system which generated this result transmitted reference range : 0.0 - 10.0 /100 WBCs. The refer ence range was not u sed to interpret th is result as normal/abnormal . NRBC x10^3 (test code <0.01 See_Comment [Auto mated = 6585506928) message] The s ystem which generated this result transmitted reference range : 10*3/?L. The reference range was not used to interpret this result as normal/abnormal . GRAN MAT (NEUT) % 49.6 % (test code = 770-8) IMM GRAN % (test code 0.20 % = 2069724807) LYMPH % (test code = 39.5 % 736-9) MONO % (test code = 9.0 % 5905-5) EOS % (test code = 1.3 % 713-8) BASO % (test code = 0.4 % 706-2) GRAN MAT x10^3(ANC) 2.36 10*3/uL 1.88-7.09 (test code = 8011355771) IMM GRAN x10^3 (test <0.03 0.00-0.06 code = 3119522194) LYMPH x10^3 (test code 1.88 10*3/uL 1.32-3.29 = 731-0) MONO x10^3 (test code 0.43 10*3/uL 0.33-0.92 = 742-7) EOS x10^3 (test code = 0.06 10*3/uL 0.03-0.39 711-2) BASO x10^3 (test code <0.03 0.01-0.07 = 704-7) Lab Interpretation Abnormal (test code = 89124-2) [id number] 01:28[facility]00 Test Item Value Reference Range Interpretation Comments POCT PREG (test code = 1605) negative On board controls acceptable with present C Line (test code = 3574) POCT PREG LOT # (test code = 3575) [id number] POCT PREG TEST DATE (test 09/28/2022 code = 3576) Lab Interpretation (test code = Normal 04245-8) [facility]2020-12-10 05:28:49 Test Item Value Reference Range Interpretation Comments AMPHET (test code = Negative Negative 8090322339) Cocaine Metabolite (test Negative Negative code = 0820651841) OPIATES (test code = Presumptive Positive Negative A 6142332839) THC (test code = Negative Negative 1601420636) EMERALD (test code = EMERALD) Urine Drug Cutoff Ranges Amphetamine: ? 1,000 ng/mLCocaine: ? 150 ng/mLOpiates: ? 300 ng/mLCannabinoids: ?50 ng/mL The results are to be used only for medical (i.e., treatment) purposes. Unconfirmed screening results must not be used for non-medical purposes (e.g., employment testing, legal testing). Lab Interpretation (test Abnormal code = 06076-1) [facility] WO [id number] 04:25:17No acute intra-abdominal or pelvic abnormality. No genitourinary stones. Complex right ovarian cyst,likely hemorrhagic cyst measuring 3.8 cm RL: 6200AF: 60460 Patient name: LORNA HIGHTOWER: 1995 25 years EXAMINATION: CT ABDOMEN PELVIS [...] - 12/09/2020 11:26 PM CDTPatient name: LORNA GUERRADOB: 1995 25 years EXAMINATION: CT ABDOMEN PELVISWO [...] likely hemorrhagic cyst measuring 3.8 cmRL: 6200AFC: 26131 [facility]Urinalysis2021-04-14 02:12:28 Test Item Value Reference Range Interpretation Comments APPEARANCE (test code = Hazy Clear A 8466012284) COLOR (test code = Yellow Yellow 1248897141) PH (test code = 4.8-8.0 5210206849) SP GRAVITY (test code = 1.003-1.030 8832617004) GLU U QUAL (test code = Normal Normal 9502170697) BLOOD (test code = Negative Negative 0865809897) KETONES (test code = Negative Negative 0252225136) PROTEIN (test code = Negative Negative 2887-8) UROBILIN (test code = 4.0 mg/dL Normal A 2582418551) BILIRUBIN (test code = Negative Negative 4137637819) NITRITE (test code = Negative Negative 3085669925) LEUK HOLLEY (test code = Negative Negative 1852153350) RBC/HPF (test code = See_Comment H [Autom ated message] 2769155962) The system [employer] generated this result transmit héctor reference range : 0 - 3 HPF. The refe rence range was not u sed to interpret th is result as normal/abnormal . WBC/HPF (test code = See_Comment [Autom ated message] 9973812014) The system [employer] generated this result transmit héctor reference range : 0 - 5 HPF. The refe rence range was not u sed to interpret th is result as normal/abnormal . BACTERIA (test code = Negative Negative 2559052647) MUCOUS (test code = Slight Negative LPF A 4504047506) SQ EPITH (test code = HPF 7082769896) YEAST BUD (test code = See_Comment H [Aut omated message] 2730410368) The system [employer] generated this result transmit héctor reference range : <=1 HPF. The refere nce range was not u sed to interpret th is result as normal/abnormal . Lab Interpretation (test Abnormal code = 55798-0) [facility] CenterComplete Metabolic [id number] 02:09:13 Test Item Value Reference Range Interpretation Comments NA (test code = 137 mmol/L 135-145 7806045962) K (test code = 3.7 mmol/L 3.5-5.0 7666805418) CL (test code = 103 mmol/L 98-108 9004019638) CO2 TOTAL (test code 26 mmol/L 23-31 = 2261223296) AGAP (test code = 2-16 1127367512) BUN (test code = 12 mg/dL 7-23 7338990589) GLUCOSE (test code = 92 mg/dL 70-110 8817428636) CREATININE (test code 0.62 mg/dL 0.50-1.04 = 3067579180) TOTAL BILI (test code 0.4 mg/dL 0.1-1.1 = 7556550763) CALCIUM (test code = 8.9 mg/dL 8.6-10.6 3185147288) T PROTEIN (test code 7.1 g/dL 6.3-8.2 = 5716351211) ALBUMIN (test code = 4.4 g/dL 3.5-5.0 6799148393) ALK PHOS (test code = 79 U/L 34-122 4151055377) ALTv (test code = 16 U/L 5-35 1742-6) AST(SGOT) (test code 23 U/L 13-40 = 0447070975) eGFR (test code = mL/min/1.73m2 1723549981) EMERALD (test code = EMERALD) Association of [...] or urine or abnormalities in imaging tests). [facility] CenterLipase, [id number] 02:08:38 Test Item Value Reference Range Interpretation Comments LIPASE (test code = 9592357351) 53 U/L 0-220 Lab Interpretation (test code = Normal 63830-9) [facility] CenterCBC with [id number] 02:00:16 Test Item Value Reference Range Interpretation Comments WBC (test code = See_Comment [Automated message] 6690-2) The system [employer] generated this result transmitted ref erence range: 4.30 - 1 1.10 10*3/?L. The re ference range was not u sed to interpret this result as normal/abnor mal. RBC (test code = See_Comment [Automated message] 099-8) The system [employer] generated this result transmitted ref erence range: [...] RDW-SD (test code 42.6 fL 39.0-49.9 = 48903-7) RDW-CV (test code 13.2 % 12.0-15.5 = 788-0) PLT (test code = See_Comment [Automated message] 707-3) The system [employer] generated this result transmitted ref erence range: 166 - 35 8 10*3/?L. The re ference range was not u sed to interpret this result as normal/abnor mal. MPV (test code = 9.5 fL 9.5-12.9 13252-4) NRBC/100 WBC (test See_Comment [Automat ed message] code = 1019789365) The [employer] which generated this result transmitted ref erence range: 0.0 - 10 .0 /100 WBCs. The refer ence range was not u sed to interpret this result as normal/abnor mal. NRBC x10^3 (test <0.01 See_Comment [Automated message] code = 1873510690) The syste m which generated this result transmitted ref erence range: 10*3/?L. The reference range was not used to interpr et this result as normal/abnormal . GRAN MAT (NEUT) % 59.6 % (test code = 770-8) IMM GRAN % (test 0.30 % code = 6183496896) LYMPH % (test code 31.8 % = 736-9) MONO % (test code 6.4 % = 5905-5) EOS % (test code = 1.4 % 713-8) BASO % (test code 0.5 % = 706-2) GRAN MAT 5.15 10*3/uL 1.88-7.09 x10^3(ANC) (test code = 8071187850) IMM GRAN x10^3 0.03 10*3/uL 0.00-0.06 (test code = 7938124827) LYMPH x10^3 (test 2.75 10*3/uL 1.32-3.29 code = 731-0) MONO x10^3 (test 0.55 10*3/uL 0.33-0.92 code = 742-7) EOS x10^3 (test 0.12 10*3/uL 0.03-0.39 code = 711-2) BASO x10^3 (test 0.04 10*3/uL 0.01-0.07 code = 704-7) [facility]PO[facility] [id number] 01:46:00 Test Item Value Reference Range Interpretation Comments POCT PREG (test code = 1605) negative On board controls acceptable with C present Line (test code = 3574) Lab Interpretation (test code = Normal 26481-6) [facility] CenterSARS[facility]CoV-[facility] (COVID-19) by RT-PCR (HIGH RISK) 2020-12-03 00:00:00 Test Item Value Reference Range Interpretation Comments SARS-CoV-2 INTERPRETATION (test NEGATIVE code = 75593) SOURCE (test code = 27373) NOT SPECIFIED SARS-CoV-2 (COVID-19) by RT-PCR (HIGH RISK)2020-12-03 00:00:00 Test Item Value Reference Range Interpretation Comments SARS-CoV-2 INTERPRETATION (test NEGATIVE code = 17446) SOURCE (test code = 81017) NOT SPECIFIED PAP TEST, THINPREP, [id number] 00:00:00 Test Item Value Reference Range Interpretation Comments SOURCE: (test code = Cervical/Endocervical 8001) SLIDES: (test code = 1 8011) LMP: (test code = 03/16/17 8021) SPECIMEN ADEQUACY: (NOTE) (test code = 38991) INTERPRETATION: (test NO EPITHELIAL code = 96476) ABNORMALITY SEE BELOW STUDENT RECORDS COORDINATOR: LITO Skaggs(ASCP) (test code = 8101) QC TECHNOLOGIST: Jg Humphrey, (test code = 8111) CT(ASCP)IAC LOCATION: (test code (NOTE) = 26047) CPT: (test code = (NOTE) 8140) PAP TEST, THINPREP, [id number] 00:00:00 Test Item Value Reference Range Interpretation Comments SOURCE: (test code = Cervical/Endocervical 8001) SLIDES: (test code = 1 8011) LMP: (test code = 03/16/17 8021) SPECIMEN ADEQUACY: (NOTE) (test code = 25259) INTERPRETATION: (test NO EPITHELIAL code = 04111) ABNORMALITY SEE BELOW STUDENT RECORDS COORDINATOR: LITO Skaggs(ASCP) (test code = 8101) QC TECHNOLOGIST: Jg Humphrey, (test code = 8111) CT(ASCP)IAC LOCATION: (test code (NOTE) = 26795) CPT: (test code = (NOTE) 8140) GC AND CHLAMYDIA AMPLIFIED, [id number] 00:00:00 Test Item Value Reference Range Interpretation Comments GONORRHEA, TMA (test code = 43316) NEGATIVE CHLAMYDIA, TMA (test code = 31411) NEGATIVE GC AND CHLAMYDIA AMPLIFIED, [id number] 00:00:00 Test Item Value Reference Range Interpretation Comments GONORRHEA, TMA (test code = 61601) NEGATIVE CHLAMYDIA, TMA (test code = 36244) NEGATIVE HIV AB/AG COMBO RFLX [id number] 00:00:00 Test Item Value Reference Range Interpretation Comments HIV 1/2 4TH GEN, RFLX CONF (test NON-REACTIVE code = 3514) HIV AB/AG COMBO RFLX [id number] 00:00:00 Test Item Value Reference Range Interpretation Comments HIV 1/2 4TH GEN, RFLX CONF (test NON-REACTIVE code = 3514) [id number] 00:00:00 Test Item Value Reference Range Interpretation Comments RPR RESULT (test code = NON-REACTIVE 3501) RPR TITER (test code = 3500) NOT INDIC. TITER [id number] 00:00:00 Test Item Value Reference Range Interpretation Comments RPR RESULT (test code = NON-REACTIVE 3501) RPR TITER (test code = 3500) NOT INDIC. TITER [id number] 00:00:00 Test Item Value Reference Range Interpretation Comments RPR RESULT (test code = NON-REACTIVE 3501) RPR TITER (test code = 3500) NOT INDIC. TITER ACUTE HEPATITIS [id number] 00:00:00 Test Item Value Reference Range Interpretation Comments HEPATITIS A IgM (test code = NON-REACTIVE 56477) HEPATITIS B CORE IgM (test code NON-REACTIVE = 4644) HEPATITIS B SURF AG (test code = NON-REACTIVE 2739) HEPATITIS C ANTIBODY (test code NON-REACTIVE = 4675) INTERPRETATION HEPATITIS A: (NOTE) (test code = 2552) INTERPRETATION HEPATITIS B: (NOTE) (test code = 54876) INTERPRETATION HEPATITIS C: (NOTE) (test code = 91604) ACUTE HEPATITIS [id number] 00:00:00 Test Item Value Reference Range Interpretation Comments HEPATITIS A IgM (test code = NON-REACTIVE 59645) HEPATITIS B CORE IgM (test code NON-REACTIVE = 4644) HEPATITIS B SURF AG (test code = NON-REACTIVE 2739) HEPATITIS C ANTIBODY (test code NON-REACTIVE = 4675) INTERPRETATION HEPATITIS A: (NOTE) (test code = 2552) INTERPRETATION HEPATITIS B: (NOTE) (test code = 94090) INTERPRETATION HEPATITIS C: (NOTE) (test code = 41233)"
[2023-04-05] MEDS ORDERED: METOCLOPRAMIDE 10 MG/2mL INJ ONE (11:11)
[2023-04-05] MEDS ORDERED: MORPHINE 4 MG/ML SYR ONE (11:12)
[2023-04-05] MEDS ORDERED: dexAMETHasone 10 MG/ML VIAL ONE (11:12)
[2023-04-05] MEDS ORDERED: NA CHLORIDE 0.9% 1,000 ML ONE (11:12)
[2023-04-05 11:19] LABS: Specific Gravity > 1.030 (1.005-1.030)
[2023-04-05 11:21] LABS: Absolute Lymphocytes (CBC) 1.6 K/uL (0.7-4.9); Hematocrit 41.5 % (36.0-45.0); Lymphocytes % 18.3 % (15.3-44.8); MCV 91.5 fL (80-100); MPV 7.3 fL (7.6-11.3); Platelets 350 thou/uL (152-406); RBC Red Blood Cell Count 4.54 M/uL (3.86-4.86)
[2023-04-05 11:32] LABS: Potassium 4.1 mEq/L (3.5-5.1)
--- NOTE | 2023-04-05 11:32 | RAD REPORT ---
EXAM DESCRIPTION: CT - Head Brain Wo Cont - 04/05/2023 11:23 am CLINICAL HISTORY: HEADACHE Headache, drowsiness COMPARISON: Head Brain Wo Cont dated 07/29/2019 TECHNIQUE: All CT scans are performed using dose optimization technique as appropriate and may inclu de automated exposure control or mA/KV adjustment according to patient size. FINDINGS: No intracranial hemorrhage, hydrocephalus or extra-axial fluid collection.No areas of brai n edema or evidence of midline shift. Mild fluid is seen in the sphenoid sinus. The paranasal sinuses and mastoids are otherwise clear. The calvarium is intact. IMPRESSION: No acute intracranial abnormality.
--- NOTE | 2023-04-05 11:51 | ER ---
Nurse's Notes [facility] Name: Lilia Nunez Age: 28 yrs Sex: Female : 1995 Arrival Date: 04/05/2023 Time: 10:39 Bed 13 Private MD: Diagnosis: Migraine, unspecified, not intractable, without status migrainosus Presentation: 04/05 10:45 Chief complaint: Patient states: MIGRAINE SINCE Y/D WITH NAUSEA. Coronavirus screen: At bp this time, the client does not indicate any symptoms associated with coronavirus-19. Ebola Screen: No symptoms or risks identified at this time. Initial Sepsis Screen: Does the patient meet any 2 criteria? No. Patient's initial sepsis screen is negative. Does the patient have a suspected source of infection? No. Patient's initial sepsis screen is negative. Risk Assessment: Do you want to hurt yourself or someone else? Patient reports no desire to harm self or others. Onset of symptoms was April 04, 2023. 10:45 Method Of Arrival: Ambulatory bp 10:45 Acuity: TERRY 3 bp Triage Assessment: 10:46 General: Appears uncomfortable, Behavior is calm, cooperative, appropriate for age. bp Pain: Complains of pain in head. EENT: No deficits noted. Neuro: Reports headache. Cardiovascular: No deficits noted. Respiratory: No deficits noted. GI: Reports nausea. : No signs and/or symptoms were reported regarding the genitourinary system. Derm: No deficits noted. Musculoskeletal: No deficits noted. Historical: - Allergies: 10:46 No Known Drug Allergies; bp - Home Meds: 10:46 None [Active]; bp - PMHx: 10:46 Asthma; Anxiety; bp - Immunization history:: Adult Immunizations up to date. - Social history:: Smoking status: Patient denies any tobacco usage or history of. - Family history:: not pertinent. - Hospitalizations: : No recent hospitalization is reported. Screenin:13 [facility] ED Fall Risk Assessment (Adult) History of falling in the last 3 months, kc6 including since admission No falls in past 3 months (0 pts) Confusion or Disorientation No (0 pts) Intoxicated or Sedated No (0 pts) Impaired Gait No (0 pts) Mobility Assist Device Used No (0 pt) Altered Elimination No (0 pt) Score/Fall Risk Level 0 - 2 = Low Risk. Abuse screen: Denies threats or abuse. Denies injuries from another. Nutritional screening: No deficits noted. Tuberculosis screening: No symptoms or risk factors identified. Assessment: 11:12 General: Appears in no apparent distress. comfortable, Behavior is calm, cooperative, kc6 appropriate for age. Pain: Complains of pain in head Pain does not radiate. Pain currently is 9 out of 10 on a pain scale. Quality of pain is described as dull, throbbing, Is continuous. Neuro: Level of Consciousness is awake, alert, obeys commands, Oriented to person, place, time, situation, Appropriate for age. Cardiovascular: Capillary refill < 3 seconds. Respiratory: Airway is patent Trachea midline Respiratory effort is even, unlabored, Respiratory pattern is regular, symmetrical. GI: Abdomen is flat, non-distended, Reports nausea, vomiting, Patient currently denies diarrhea. : No signs and/or symptoms were reported regarding the genitourinary system. EENT: No signs and/or symptoms were reported regarding the EENT system. Derm: No signs and/or symptoms reported regarding the dermatologic system. Skin is intact, is healthy with good turgor, Skin is pink, warm \T\ dry. Musculoskeletal: No signs and/or symptoms reported regarding the musculoskeletal system. Circulation, motion, and sensation intact. Capillary refill < 3 seconds, Range of motion: intact in all extremities. 12:10 Reassessment: Patient appears in no apparent distress at this time. No changes from kc6 previously documented assessment. Patient and/or family updated on plan of care and expected duration. Pain level reassessed. Patient is alert, oriented x 3, equal unlabored respirations, skin warm/dry/pink. Vital Signs: 10:45 BP 109 / 73; Pulse 69; Resp 16; Temp 98; Pulse Ox 100% ; Weight 79.38 kg; Height 5 ft. bp 2 in. ; 12:10 BP 100 / 72; Pulse 54; Resp 17 S; Pulse Ox 100% on R/A; kc6 10:45 Body Mass Index 32.01 (79.38 kg, 157.48 cm) bp [place] Coma Score: 11:48 Eye Response: spontaneous(4). Motor Response: obeys commands(6). Verbal Response: rn oriented(5). Total: 15. ED Course: 10:41 Patient arrived in ED. mr 10:45 Sana Govea, RN is Primary Nurse. kc6 10:46 Triage completed. bp 10:46 Arm band placed on. bp 10:47 Arnold Nunez MD is Attending Physician. rn 11:01 Radiology exam delayed due to IV insertion attempt and/or patient not having ls3 appropriate IV at this time. pain meds. 11:11 Test, Urine Sent. kc6 11:11 CBC with Diff Sent. kc6 11:11 Basic Metabolic Panel Sent. kc6 11:13 Patient has correct armband on for positive identification. Bed in low position. Call kc6 light in reach. Side rails up X 1. 11:13 Inserted saline lock: 20 gauge in right antecubital area, using aseptic technique. kc6 Blood collected. 11:23 CT Head Brain wo Cont In Process Unspecified. EDMS 11:49 John Turcios MD is Referral Physician. rn 12:10 No provider procedures requiring assistance completed. IV discontinued, intact, kc6 bleeding controlled, No redness/swelling at site. Pressure dressing applied. Administered Medications: 11:11 Drug: morphine IVP or IV 4 mg Route: IVP; Infused Over: 4 mins; Site: right antecubital;kc6 12:11 Follow up: Response: No adverse reaction; Pain is decreased; RASS: Alert and Calm (0) kc6 11:11 Drug: Decadron - Dexamethasone IVP 10 mg Route: IVP; Site: right antecubital; kc6 12:11 Follow up: Response: No adverse reaction kc6 11:12 Drug: NS 0.9% IV 1000 ml Route: IV; Rate: 1000 ml; Site: right antecubital; kc6 12:11 Follow up: Response: No adverse reaction; IV Status: Completed infusion; IV Intake: kc6 1000ml 11:12 Drug: metoCLOPramide IVP 10 mg Route: IVP; Site: right antecubital; kc6 12:11 Follow up: Response: No adverse reaction; Nausea is decreased kc6 Medication: 12:10 VIS not applicable for this client. kc6 Intake: 12:11 IV: 1000ml; Total: 1000ml. kc6 Outcome: 11:50 Discharge ordered by MD. rn 12:10 Discharged to home ambulatory, with family. kc6 12:10 Condition: improved 12:10 Discharge instructions given to patient, Instructed on discharge instructions, follow up and referral plans. Demonstrated understanding of instructions, follow-up care. 12:11 Patient left the ED. kc6 Signatures: Dispatcher [employer] YANCY LudinNicole MayraArnold MD MD rn Peltier, Brian RN Kyara Silverio ls3 Sana Govea RN RN kc6
--- NOTE | 2023-04-05 11:51 | EDPHYS ---
Physician Documentation [facility] Name: Lilia Nunez Age: 28 yrs Sex: Female : 1995 Arrival Date: 04/05/2023 Time: 10:39 Bed 13 Private MD: ED Physician Arnold Nunez HPI: 04/05 11:00 This 28 yrs old Female presents to ER via Ambulatory with complaints of rn Headache. 11:00 The patient complains of pain to the forehead. The patient describes the headache as rn aching. Onset: The symptoms/episode began/occurred yesterday. Associated signs and symptoms: Pertinent positives: nausea, vomiting, Pertinent negatives: altered mental status, fever, neck stiffness, rash, vision changes, vision loss, vertigo. Severity of symptoms: At its worst the pain was moderate, in the emergency department the pain is unchanged. Headache History: The patient has had previous headaches and this one is similar to previous episodes. The patient has experienced similar episodes in the past. Pt reports headaches since teenager, has never had imaging done, but has what she calls "migraines" about 5-6 times a year. No fever. Does not feel ill. Otherwise, feels like previous headaches. No neck stiffness. NO focal neuro complaint. . Historical: - Allergies: 10:46 No Known Drug Allergies; bp - Home Meds: 10:46 None [Active]; bp - PMHx: 10:46 Asthma; Anxiety; bp - Immunization history:: Adult Immunizations up to date. - Social history:: Smoking status: Patient denies any tobacco usage or history of. - Family history:: not pertinent. - Hospitalizations: : No recent hospitalization is reported. ROS: 11:00 Constitutional: Negative for fever, chills, and weight loss, Eyes: Negative for injury, rn pain, redness, and discharge, Neck: Negative for injury, pain, and swelling, Cardiovascular: Negative for chest pain, palpitations, and edema, Respiratory: Negative for shortness of breath, cough, wheezing, and pleuritic chest pain, Abdomen/GI: Negative for abdominal pain, diarrhea, and constipation Back: Negative for injury and pain, MS/Extremity: Negative for injury and deformity, Skin: Negative for injury, rash, and discoloration, Neuro: Negative for weakness, numbness, tingling, and seizure Exam: 11:00 Constitutional: This is a well developed, well nourished patient who is awake, alert, rn and in no acute distress, lights off, laying in bed. Head/Face: Normocephalic, atraumatic. Neck: Trachea midline, no masses palpated, and no cervical lymphadenopathy. Supple, full range of motion without nuchal rigidity, or vertebral point tenderness. No Meningismus. Cardiovascular: Regular rate and rhythm. No pulse deficits. Respiratory: No increased work of breathing, no retractions or nasal flaring. Skin: Warm, dry MS/ Extremity: Pulses equal, no cyanosis. Neuro: Awake and alert, GCS 15, oriented to person, place, time, and situation. Cranial nerves II-XII grossly intact. Motor strength 5/5 in all extremities. Sensory grossly intact. Cerebellar exam normal. Vital Signs: 10:45 BP 109 / 73; Pulse 69; Resp 16; Temp 98; Pulse Ox 100% ; Weight 79.38 kg; Height 5 ft. bp 2 in. ; 12:10 BP 100 / 72; Pulse 54; Resp 17 S; Pulse Ox 100% on R/A; kc6 10:45 Body Mass Index 32.01 (79.38 kg, 157.48 cm) bp [place] Coma Score: 11:48 Eye Response: spontaneous(4). Motor Response: obeys commands(6). Verbal Response: rn oriented(5). Total: 15. MDM: 10:47 Patient medically screened. rn 11:48 Differential diagnosis: hypertensive headache, intracerebral hemorrhage, migraine, rn neoplasm, tension headache, vasomotor headache. Data reviewed: vital signs, nurses notes, lab test result(s), radiologic studies, CT scan, and as a result, I will discharge patient. Counseling: I had a detailed discussion with the patient and/or guardian regarding: the historical points, exam findings, and any diagnostic results supporting the discharge/admit diagnosis, lab results, radiology results, the need for outpatient follow up, to return to the emergency department if symptoms worsen or persist or if there are any questions or concerns that arise at home. Response to treatment: the patient's symptoms have markedly improved after treatment, and as a result, I will discharge patient. Special discussion: I discussed with the patient/guardian in detail that at this point there is no indication for admission to the hospital. It is understood, however, that if the symptoms persist or worsen the patient needs to return immediately for re-evaluation. Based on the history and exam findings, there is no indication for further emergent testing or inpatient evaluation. I discussed with the patient/guardian the need to see the neurologist for further evaluation of the symptoms. 04/05 10:54 Order name: Test, Urine; Complete Time: 11:38 rn 04/05 10:54 Order name: CBC with Diff; Complete Time: 11: rn 04/05 10:54 Order name: Basic Metabolic Panel; Complete Time: 11: rn 04/05 10:54 Order name: CT Head Brain wo Cont; Complete Time: : rn 04/05 10:54 Order name: IV Start; Complete Time: 11:11 rn Administered Medications: 11:11 Drug: morphine IVP or IV 4 mg Route: IVP; Infused Over: 4 mins; Site: right antecubital;kc6 12:11 Follow up: Response: No adverse reaction; Pain is decreased; RASS: Alert and Calm (0) 6 11:11 Drug: Decadron - Dexamethasone IVP 10 mg Route: IVP; Site: right antecubital; kc6 12:11 Follow up: Response: No adverse reaction kc6 11:12 Drug: NS 0.9% IV 1000 ml Route: IV; Rate: 1000 ml; Site: right antecubital; kc6 12:11 Follow up: Response: No adverse reaction; IV Status: Completed infusion; IV Intake: kc6 1000ml 11:12 Drug: metoCLOPramide IVP 10 mg Route: IVP; Site: right antecubital; kc6 12:11 Follow up: Response: No adverse reaction; Nausea is decreased kc6 Disposition Summary: 04/05/23 11:50 Discharge Ordered Location: Home rn Problem: an ongoing problem rn Symptoms: have improved rn Condition: Stable rn Diagnosis - Migraine, unspecified, not intractable, without status migrainosus rn Followup: rn - With: John Turcios MD - When: As needed - Reason: Recheck today's complaints, Re-evaluation by your physician Discharge Instructions: - Discharge Summary Sheet rn - Migraine Headache rn Forms: - Medication Reconciliation Form rn - Thank You Letter rn - Antibiotic government auditor - Prescription Opioid Use rn - Patient Portal Instructions rn Signatures: Dispatcher [employer] EDArnold Dodge MD MD rn Christopher Mancera, RN RN bp Sana Govea RN RN kc6
[2023-04-05 12:19] VITALS: TEMP 98; O2SAT 100
[2023-04-05 12:20] VITALS: BP 100/72
== END 2023-04-05 12:11 | disposition home or self-care (01) ==
LOC: ER 10:39
DX: G43.009 Migraine without aura, not intractable, without status migrainosus (principal)
CPT/HCPCS: 96361; 85025; 80048; 36415; 81025; 70450; 96375; 96374; 99284; J2765; J1100; J7030

== ENCOUNTER 2023-05-17 18:32 | Emergency (ER) | payer BC ==
--- OUTSIDE RECORDS SUMMARY | 2023-05-17 18:37 | XMS REPORT | Continuity of Care Document ---
:1995 Author Organization [facility] t Address [address] [facility] [address] [place] [address] Care Team Providers Name Role Phone Dena Perry Primary Care Physician [phone] SREE LOPEZ Attending Clinician Unavailable Sree Lopez MD Attending Clinician QIANA VALDEZ Attending Clinician Unavailable Qiana Kinney Attending Clinician Elliot Fletcher Attending Clinician ELLIOT FRASER Attending Clinician Unavailable Amber Cardozo NP Attending Clinician Payers Payer Name Policy Type Policy Number Effective Date Expiration Date S [facility] [place] PENDING PENDING 2021 00:00:00 Problems Condition Condition Condition Status Onset Resolution Last Treating Co mments Source Name Details Category Date Date Treatment Clinician Date No known No known Disease Unive rs active active ity of problems problems [facility] Allergies, Adverse Reactions, Alerts Allergy Allergy Status Severity Reaction(s) Onset Inactive Treating Comm ents Source Name Type Date Date Clinician NO KNOWN Drug Active Univers ALLERGIE Class ity of S [facility] Social History Social Habit Start Date Stop Date Quantity Comments Source History of tobacco Cigarette Smoker University of use [facility] Exposure to 2022-08-31 2022-09-10 Not sure University of SARS-CoV-2 (event) 00:00:00 12:55:00 [facility] Cigarettes smoked 2017-07-12 2017-07-12 Univers ity of current (pack per 00:00:00 00:00:00 [facility] ) - Reported Branch Tobacco use and 2017-07-12 2017-07-12 Smokeless Universit y of exposure 00:00:00 00:00:00 tobacco non-user [facility] Sex Assigned At [birth year] Universit y of 00:00:00 00:00:00 [facility] Smoking Status Start Date Stop Date Source Smokes tobacco daily 2017-07-12 00:00:00 Univers ity of [facility] Medications Ordered Filled Start Stop Current Ordering Indication Dosage Frequency Signature Comments Components Source Medication Medication Date Date Medication? Clinician (SIG) Name Name LORazepam No 1mg 1 mg, Univer s (ATIVAN) 09-10 Oral, ity of tablet 1 mg 19:30: 19:43 [place] 1 [place] :[place] dose, On Medical Fri Branch 09/10/22 at 1330, VIVIEN hydrOXYzine Yes [id number] 25mg Take 1 Univers (VISTARIL) 09-10 capsule by ity of 25 mg 00:00: mouth 2 [place] capsule 00 (two) Medical times [place] daily as needed for Anxiety. Dose No [...] 500 mg 00 :00 1 dose, On [facility] 08/24/21 at 2145, VIVIEN
Re ason [...] Tue08/24/21 at 2000, VIVIEN doxycycline 2020-08- No [id number] 100mg Take 1 Univers hyclate 100 10-25 [...] Indication s: acute pain clindamycin 2020- No [id number] 450mg Take 3 Univers 150 mg 03-26 [...] :00 ONCE, 1 Medical dose, [facility] Branch 12/09/20 at 2345, Routine
member of parliament approving Restricted medication : AMBER CARDOZO dicyclomine Yes [id number] 20mg Take 1 Univers 20 mg 12-10 [id number] tablet by ity of tablet 00:00: mouth 4 [place] 00 (four) Medical times Branch daily as needed for Abdominal pain. dicyclomine 2020- No [id number] 20mg Take 1 Univers 20 mg 12-10 [id number] tablet by ity of tablet 00:00: 00:00 mouth 4 [place] 00 :00 (four) Medical times Branch daily as needed for Abdominal pain. indomethaci 2020- No [id number] 50mg Take 1 Univers n 50 mg 12-10 [id number] capsule by ity of capsule 00:00: 04:59 mouth 2 [place] 00 :00 (two) Medical times Branch daily [...] No 60mg 60 mg, Unive rs (TORADOL) 006-16 Intramuscu ity of injection 22:00: 21:07 lar, ONCE, [place] 60 mg 00 :00 1 dose, Medical Mon Branch 06/16/20 at 1700, VIVIEN
Fa culty member approving Restricted medication : EMERGENCY ROOM, penicillin 2019-08 2020- No [id number] 500mg Take 1 Univers v potassium 0-19 [...] Completed Unive rsity of PFIZER VACCINE 00:00:00 [facility] SARS-COV-2 COVID-19 2021-01-17 Completed Unive rsity of PFIZER VACCINE 00:00:00 [facility] SARS-COV-2 COVID-19 2021-01-17 Completed Unive rsity of PFIZER VACCINE 00:00:00 [facility] SARS-COV-2 COVID-19 2020-12-20 Completed Unive rsity of PFIZER VACCINE 00:00:00 [facility] SARS-COV-2 COVID-19 2020-12-20 Completed Unive rsity of PFIZER VACCINE 00:00:00 [facility] SARS-COV-2 COVID-19 2020-12-20 Completed Unive rsity of PFIZER VACCINE 00:00:00 [facility] Influenza, 2017-08-24 Completed seasonal, inj 00:00:00 Hep A-Hep B 2017-04-06 Completed 00:00:00 Vital Signs Vital Name Observation Time Observation Value Comments Source Systolic blood 2022-09-10 18:57:00 180 mm[Hg] Univer sity of pressure [facility] Diastolic blood 2022-09-10 18:57:00 115 mm[Hg] Unive rsity of pressure [facility] Heart rate 2022-09-10 18:57:00 90 /min [facility] Body temperature 2022-09-10 18:57:00 36.83 Ariane [facility] Respiratory rate 2022-09-10 18:57:00 20 /min [facility] Body height 2022-09-10 18:57:00 157.5 cm [facility] Body weight 2022-09-10 18:57:00 79.379 kg [facility] BMI 2022-09-10 18:57:00 32.01 kg/m2 [facility] Oxygen saturation in 2022-09-10 18:57:00 99 /min University Arterial blood by [facility] Pulse oximetry Branch Systolic blood 2021-08-25 02:00:00 120 mm[Hg] Univer sity of pressure [facility] Diastolic blood 2021-08-25 02:00:00 82 mm[Hg] Unive rsity of pressure [facility] Heart rate 2021-08-25 02:00:00 82 /min Universi ty of [facility] Respiratory rate 2021-08-25 02:00:00 15 /min Univ ersity of [place] [facility] Oxygen saturation in 2021-08-25 02:00:00 100 /min University of Arterial blood by [place] [employer] juan m Pulse oximetry Branch Body temperature 2021-08-25 00:45:00 37.17 Ariane Univ [facility] [place] [facility] Body weight 2021-08-25 00:45:00 86.183 kg Universi ty [facility] [place] [facility] BMI 2021-08-25 00:45:00 34.75 kg/m2 [facility]i ty [facility] [place] [facility] Systolic blood 2021 20:13:00 108 mm[Hg] Univer sity of pressure [facility] Diastolic blood 2021 20:13:00 86 mm[Hg] Unive rsity of pressure [facility] Heart rate 2021 20:13:00 90 /min Universi ty of [facility] Body temperature 2021 20:13:00 37.5 Ariane Univ ers[facility] [place] [facility] Respiratory rate 2021 20:13:00 18 /min Univ ers[facility] [place] [facility] Body height 2021 20:13:00 157.5 cm Universi ty [facility] Body weight 2021 20:13:00 88.905 kg Universi ty [facility] [place] [facility] BMI 2021 20:13:00 35.85 kg/m2 [facility] Oxygen saturation in 2021 20:13:00 100 /min University of Arterial blood by [place] [employer] juan m Pulse oximetry Branch Systolic blood 2020-12-10 00:00:00 120 mm[Hg] Univer sity of pressure [facility] Diastolic blood 2020-12-10 00:00:00 74 mm[Hg] Unive rsity of pressure [facility] Heart rate 2020-12-10 00:00:00 71 /min Universi ty [facility] Body temperature 2020-12-10 00:00:00 37.5 Ariane Univ [facility] [place] [facility] Respiratory rate 2020-12-10 00:00:00 18 /min Univ [facility] [place] [facility] Body weight 2020-12-10 00:00:00 86.183 kg Universi ty [facility] [place] [facility] BMI 2020-12-10 00:00:00 34.75 kg/m2 [facility]i ty [facility] [place] [facility] Oxygen saturation in 2020-12-10 00:00:00 97 /min University of Arterial blood by [facility] juan m Pulse oximetry Branch Systolic blood 2020-12-10 00:00:00 120 mm[Hg] Univer sity of pressure [place] [facility] Diastolic blood 2020-12-10 00:00:00 74 mm[Hg] Unive rsity of pressure [place] [facility] Heart rate 2020-12-10 00:00:00 71 /min Universi ty [facility] [place] [facility] Body temperature 2020-12-10 00:00:00 37.5 Ariane Univ ers[facility] [place] [facility] Respiratory rate 2020-12-10 00:00:00 18 /min Univ ers[facility] [place] [facility] Body weight 2020-12-10 00:00:00 86.183 kg Universi ty [facility] [place] [facility] BMI 2020-12-10 00:00:00 34.75 kg/m2 [facility] [place] [facility] Oxygen saturation in 2020-12-10 00:00:00 97 /min University of Arterial blood by [facility] Pulse oximetry Branch Systolic blood 2020-06-16 20:21:00 132 mm[Hg] Univer sity of pressure [place] [facility] Diastolic blood 2020-06-16 20:21:00 74 mm[Hg] Unive rsity of pressure [place] [facility] Heart rate 2020-06-16 20:21:00 82 /min [facility]i ty [facility] [place] [facility] Body temperature 2020-06-16 20:21:00 36.72 Ariane Univ [facility] [place] [facility] Respiratory rate 2020-06-16 20:21:00 20 /min Univ [facility] [place] [facility] Body height 2020-06-16 20:21:00 157.5 cm [facility]i [facility] [place] [facility] Body weight 2020-06-16 20:21:00 86.183 kg [facility]i [facility] [place] [facility] BMI 2020-06-16 20:21:00 34.75 kg/m2 [facility]i ty [facility] [place] [facility] Oxygen saturation in 2020-06-16 20:21:00 100 /min University of Arterial blood by [facility] Pulse oximetry Branch Systolic blood 2020-06-16 20:21:00 132 mm[Hg] Univer sity of pressure [facility] Diastolic blood 2020-06-16 20:21:00 74 mm[Hg] Unive rsity of pressure [facility] Heart rate 2020-06-16 20:21:00 82 /min Universi ty of [facility] Body temperature 2020-06-16 20:21:00 36.72 Ariane Univ ersity of [facility] Respiratory rate 2020-06-16 20:21:00 20 /min Univ ersity of [facility] Body height 2020-06-16 20:21:00 157.5 cm Universi ty of [facility] Body weight 2020-06-16 20:21:00 86.183 kg Universi ty of [facility] BMI 2020-06-16 20:21:00 34.75 kg/m2 Universi ty [facility] Oxygen saturation in 2020-06-16 20:21:00 100 /min University of Arterial blood by [facility] Pulse oximetry Branch BP Systolic 2021-11-04 11:02:00 [...] Performed POCT TEST 2022-09-10 19:42:00 Sree Lopez [facility] URINE DRUG (IMMUNOASSAY) 2022-09-10 19:41:00 Sree Lopez [facility] SCREEN URINALYSIS 2022-09-10 19:41:00 Sree Lopez [place] [facility] CONSENT/REFUSAL FOR 2022-09-10 18:46:57 Doctor Unassigned, No [facility] [place] [facility] TREATMENT Name [facility] POCT TEST 2021-08-25 01:28:00 Qiana Valdez [facility] BASIC METABOLIC PANEL 2021-08-25 01:26:00 [facility], K, CL, CO2, Medical Branch GLUCOSE, BUN, CREATININE, CA) CBC WITH DIFF 2021-08-25 01:26:[address] [facility] URINALYSIS 2021-08-25 01:26:[address] [facility] CONSENT/REFUSAL FOR 2021-08-25 00:39:27 Doctor Unassigned, No [facility] [place] [facility] TREATMENT [facility]3] CONSENT/REFUSAL FOR 2021 20:08:24 Doctor Unassigned, No [facility] [place] DIAGNOS[facility] TREATMENT [facility]3] CT ABDOMEN PELVIS WO 2020-12-10 04:09:17 Amber Cardozo [facility] CONTRAST [facility] URINE DRUG (IMMUNOASSAY) 2020-12-10 03:57:00 [facility] [place] [facility]EL [facility] POCT TEST 2020-12-10 01:46:00 Johnnie Olivarez [facility] LIPASE 2020-12-10 01:44:00 Johnnie Olivarez [facility] COMP. METABOLIC PANEL 2020-12-10 01:44:00 Johnnie Olivarez [facility] ([id number]) [facility] CBC WITH DIFF 2020-12-10 01:44:00 Johnnie Olivarez [facility] URINALYSIS 2020-12-10 01:44:00 Johnnie Olivarez [facility] NOTICE OF PRIVACY 2020-12-09 23:56:35 Doctor Unassigned, No [facility]3] CONSENT/REFUSAL FOR 2020-12-09 23:55:46 Doctor Unassigned, No [facility] [place] DIAGNOSIS AND TREATMENT Name Medical Branch CONSENT/REFUSAL FOR 2020-06-16 20:19:26 Doctor Unassigned, No [facility] [place] DIAGNOSIS AND TREATMENT Name Medical Branch Plan of Care Planned Activity Planned Date Details Comments Source Goal Plan of Care Note [code = 91364-8] Goal Plan of Care Note [code = 54439-9] Goal Plan of Care Note [code = 55344-5] Goal Plan of Care Note [code = 11579-7] Goal Plan of Care Note [code = 20701-5] Goal Plan of Care Note [code = 04064-1] Goal Plan of Care Note [code = 37880-4] Goal Plan of Care Note [code = 65685-8] Goal Plan of Care Note [code = 75931-9] Goal Plan of Care Note [code = 58538-4] Goal Plan of Care Note [code = 70668-8] Goal Plan of Care Note [code = 59534-0] Goal Plan of Care Note [code = 57360-7] Goal Plan of Care Note [code = 73847-0] Goal Plan of Care Note [code = 01478-6] Goal Plan of Care Note [code = 94566-7] Goal Plan of Care Note [code = 59717-8] Goal Plan of Care Note [code = 78906-2] Goal Plan of Care Note [code = 00774-8] Goal Plan of Care Note [code = 51860-6] Goal Plan of Care Note [code = 01539-6] Goal Plan of Care Note [code = 45247-1] Goal Plan of Care Note [code = 22662-8] Goal Plan of Care Note [code = 07151-7] Goal Plan of Care Note [code = 60719-3] Goal Plan of Care Note [code = 18954-8] Encounters Start End Encounter Admission Attending Care Care Encounter Source Date/Time Date/Time Type Type Clinicians Facility Department ID 2022-09-11 Outpatient [facility] [id number] [place] 22:37:13 [id number] Health 2023-03-15 2023-03-15 Outpatient [facility] [id number] Mariusz 08:16:23 08:16:23 0718 F Karlo 2022-09-10 2022-09-10 Emergency X XIN [facility] [id number] Univers 12:58:00 16:23:00 SREE itmaegan [facility] 2022-09-10 2022-09-10 Emergency [place], [facility] [id number] Univers 12:58:00 16:23:00 Sree Mendoza AAYUSH [id number] i ty [facility] 4.2.7.2.686 [facility] [id number] [address] 2022-04-02 2022-04-02 Outpatient [id number] 00:00:00 00:00:00 Visit [id number] 2021-08-24 2021-08-24 Emergency X VALDEZ, [facility] ERT [id number] Univers 18:46:00 21:11:00 QIANA jimenez [facility] 2021-08-24 2021-08-24 Emergency [facility] [id number] Univers 18:46:00 21:11:00 Qiana DE LUNANAGA [id number] i ty of [place] 4.2.7.2.686 [facility] [id number] [address] 2021 2021 [facility] [id number] Univers 15:14:00 16:17:00 Elliot Valdes Aayush [id number] i ty of [place] 4.2.7.2.686 [facility] [id number] [address] 2021 2021 Emergency [facility] [id number] Univers 15:08:00 15:08:00 ELLIOT [facility] 2020-12-09 2020-12-10 Emergency [facility] [id number] Univers 19:02:00 01:46:00 Amber Dalton [id number] ity of [place] 4.2.7.2.686 [facility] [id number] [address] 2020-12-09 2020-12-10 Emergency Drever, [facility] [id number] 19:02:00 01:46:00 Amber Arenas [place] [id number] [place] 4.2.7.2.686 [place] [id number] [facility] 2020-12-09 2020-12-09 Emergency X [facility] ERT [id number] Univers 18:54:00 18:54[facility] 2020-06-16 2020-06-16 Emergency Valdez, [facility] [id number] Univers 15:24:00 17:00:00 Qiana Dalton [id number] i ty of [place] 4.2.7.2.686 [facility] [id number] [address] 2020-06-16 2020-06-16 Emergency Valdez, [facility] [id number] 15:24:00 17:00:00 Qiana Dalton [id number] [place] 4.2.7.2.686 [place] [id number] [facility] 2020-06-16 2020-06-16 Emergency X [facility] ERT [id number] Univers 15:18:00 15:18:00 [facility] 2020-01-27 2020-01-27 Emergency X [place] ERT [id number] Univers 14:14:00 14:14:00 [facility] Results Test Description Test Time Test Comments Results Result Comments Source POCT TEST 2022-09-10 19:42:00 Test Item Value Reference Range Interpretation Comme nts POCT PREG (test code = 1605) negative On board controls acceptable with C Line (test code = 3574) present POCT PREG LOT # (test code = 3575) [id number] POCT PREG TEST DATE (test code = 3576) 11-27-2023 Lab Interpretation (test code = 75097-4) Normal [facility], THINPREP, [id number] 09:47:06 Test Item Value Reference Range Interpretation Comments SOURCE: (test Cervical/Endoce code = 8001) rvical SLIDES: (test 1 code = 8011) LMP: (test code 10/27/2021 = 8021) SPECIMEN (NOTE) Satisfactory f or ADEQUACY: (test evaluation. code = 93078) Endocervical cells/transform ation zone component present. INTERPRETATION: NILM/NO EPITH. (test code = ABNORMALITY;SEE 97495) BELOW -------- - NEGATIVE FOR INTRAEPITHELIAL LESION OR MALIGNANCY ( NILM) -------- -------- -------- ---- PACKAGE PICK UP Nery Macedo : (test code = 8101) LOCATION: (test (NOTE) Specimens pr ocessed and code = 15472) interpreted at [facility], [address] [place] [address] 5933 4, Phone: , CLIA: [id number] CPT: (test code (NOTE) 06344 UNLESS OTHERWISE = 8140) INDICATED, COMP UTER [...] ALL TESTING PER FORMED ATCLINICAL PATH OLOGY LABORATORIES, I [place] [place] [address] LABORATOR Y DIRECTOR: ELIF MADISON M.D. CLIA NUMBER [id number] CAP ACCREDITATION N O. [id number] PAP TEST, THINPREP, [id number] 00:00:00 Test Item Value Reference Range Interpretation Comments SOURCE: (test code = Cervical/Endocervical 8001) SLIDES: (test code = 1 8011) LMP: (test code = 8021) 10/27/2021 SPECIMEN ADEQUACY: (NOTE) (test code = 36502) INTERPRETATION: (test NILM/NO EPITH. code = 65731) ABNORMALITY;SEE BELOW PACKAGE PICK UP: (test Nery Macedo code = 8101) LOCATION: (test code = (NOTE) 71515) CPT: (test code = 8140) (NOTE) PAP TEST, THINPREP, [id number] 00:00:00 Test Item Value Reference Range Interpretation Comments SOURCE: (test code = Cervical/Endocervical 8001) SLIDES: (test code = 1 8011) LMP: (test code = 8021) 10/27/2021 SPECIMEN ADEQUACY: (NOTE) (test code = 07593) INTERPRETATION: (test NILM/NO EPITH. code = 19544) ABNORMALITY;SEE BELOW PACKAGE PICK UP: (test Nery Beckerkins code = 8101) LOCATION: (test code = (NOTE) 76054) CPT: (test code = 8140) (NOTE) VAGINAL PATHOGENS DNA [id number] 14:50:28 Test Item Value Reference Range Interpretation Comments DAMIR SPECIES (test NEGATIVE NEGATIVE code = ) G. VAGINALIS (test NEGATIVE NEGATIVE code = 52571) T. VAGINALIS (test NEGATIVE NEGATIVE UNLESS O THERWISE code = 73169) INDICATED, ALL TESTING PERFORMED [facility] PATHOLOGY [facility]. [address] [place] [address] LABORATORY DIRE CTOR: ELIF BLACK M.D. CLIA NUMBER [id number] [place] [id number] 06:56:09 Test Item Value Reference Range Interpretation Comments RPR RESULT (test code = NON-REACTIVE NON-REACTIVE 3501) RPR TITER (test code = 3500) NOT INDIC. TITER NOT INDIC. HIV 1/2 4TH GEN, RFLX [id number] 05:54:17 Test Item Value Reference Range Interpretation Comments HIV 1/2 4TH GEN, RFLX CONF (test NON-REACTIVE NON-REACTIVE code = 3514) HEPATITIS PANEL, [id number] 05:54:17 Test Item Value Reference Range Interpretation Comments HEPATITIS A IgM (test NON-REACTIVE NON-REACTIVE code = 28960) HEPATITIS B CORE IgM NON-REACTIVE NON-REACTIVE (test code = 4644) HEPATITIS B SURF AG NON-REACTIVE NON-REACTIVE (test code = 2739) HEPATITIS C ANTIBODY NON-REACTIVE NON-REACTIVE (test code = 4675) INTERPRETATION (NOTE) Hepatitis A HEPATITIS A: (test code sero logy shows no = 2552) evidence of acu te hepatitis A. INTERPRETATION (NOTE) Hepatitis B HEPATITIS B: (test code sero logy shows no = 94902) evidence of acu te hepatitis B and no indication of exposure to hepatitis B vir us in the previous jie eight months. INTERPRETATION (NOTE) Hepatitis C HEPATITIS C: (test code sero logy shows no = 12329) evidence of exposure to hepatitisC viru s at this time. I t can take up to 12 months after exposure tothe hepatitis C vir us for antibodies to become detectab le in the blood in certain patient s. HIV AB/AG COMBO RFLX [id number] 00:00:00 Test Item Value Reference Range Interpretation Comments HIV 1/2 4TH GEN, RFLX CONF (test NON-REACTIVE code = 3514) HIV AB/AG COMBO RFLX [id number] 00:00:00 Test Item Value Reference Range Interpretation Comments HIV 1/2 4TH GEN, RFLX CONF (test NON-REACTIVE code = 3514) ACUTE HEPATITIS [id number] 00:00:00 Test Item Value Reference Range Interpretation Comments HEPATITIS A IgM (test code = NON-REACTIVE 98891) HEPATITIS B CORE IgM (test code NON-REACTIVE = 4644) HEPATITIS B SURF AG (test code = NON-REACTIVE 2739) HEPATITIS C ANTIBODY (test code NON-REACTIVE = 4675) INTERPRETATION HEPATITIS A: (NOTE) (test code = 2552) INTERPRETATION HEPATITIS B: (NOTE) (test code = 24309) INTERPRETATION HEPATITIS C: (NOTE) (test code = 12210) ACUTE HEPATITIS [id number] 00:00:00 Test Item Value Reference Range Interpretation Comments HEPATITIS A IgM (test code = NON-REACTIVE 21408) HEPATITIS B CORE IgM (test code NON-REACTIVE = 4644) HEPATITIS B SURF AG (test code = NON-REACTIVE 2739) HEPATITIS C ANTIBODY (test code NON-REACTIVE = 4675) INTERPRETATION HEPATITIS A: (NOTE) (test code = 2552) INTERPRETATION HEPATITIS B: (NOTE) (test code = 11035) INTERPRETATION HEPATITIS C: (NOTE) (test code = 02308) [id number] 00:00:00 Test Item Value Reference Range Interpretation Comments RPR RESULT (test code = NON-REACTIVE 3501) RPR TITER (test code = 3500) NOT INDIC. TITER [id number] 00:00:00 Test Item Value Reference Range Interpretation Comments RPR RESULT (test code = NON-REACTIVE 3501) RPR TITER (test code = 3500) NOT INDIC. TITER [id number] 00:00:00 Test Item Value Reference Range Interpretation Comments RPR RESULT (test code = NON-REACTIVE 3501) RPR TITER (test code = 3500) NOT INDIC. TITER VAGINAL PATHOGENS DNA [id number] 00:00:00 Test Item Value Reference Range Interpretation Comments DAMIR SPECIES (test code = 83955) NEGATIVE G. VAGINALIS (test code = 13188) NEGATIVE T. VAGINALIS (test code = 18146) NEGATIVE VAGINAL PATHOGENS DNA [id number] 00:00:00 Test Item Value Reference Range Interpretation Comments DAMIR SPECIES (test code = ) NEGATIVE G. VAGINALIS (test code = 25680) NEGATIVE T. VAGINALIS (test code = 49318) NEGATIVE SARS-CoV-2 (COVID-19), RT-PCR/[id number] 13:12:43 Test Item Value Reference Interpretation Comments Range SARS-CoV-2 NEGATIVE SEE NOTE SARS-CoV-2 RNA NOT INTERPRETATION DETECTEDNegat fidencio (test code = 35351) results do not preclude SARS-C oV-2 infection [...] (test code = NASOPH[place]: [place] [address]) Ronit Jagdeep Brooke l-Time RT-PCR. The exp [...] provided by met hod given in report:https:// www.TrustGo.com/clinic ians/cl ient-communicat ions/ Alternatively, see downloadable PD F fact sheet at:https://www. [employer]/COVID-19-R T-PCR UNLESS OTHERWIS E INDICATED, ALL TESTING PERFORMED [facility] PATHOLOGY LABORATORIES, [facility]. [address] [place] [id number] [place] [address] DIRECTOR: ELIF MADISON M.D. CLIA NUMBER [id number] CAP ACCREDITATION N O. [id number] SARS-CoV-2 (COVID-19) by RT-PCR (HIGH RISK)2021-09-16 00:00:00 Test Item Value Reference Range Interpretation Comments SARS-CoV-2 INTERPRETATION NEGATIVE (test code = 65186) SOURCE (test code = 03938) NASOPHARYNGEAL SARS-CoV-2 (COVID-19) by RT-PCR (HIGH RISK)2021-09-16 00:00:00 Test Item Value Reference Range Interpretation Comments SARS-CoV-2 INTERPRETATION NEGATIVE (test code = 37295) SOURCE (test code = 30576) NASOPHARYNGEAL SARS-CoV-2 (COVID-19), RT-PCR/[id number] 13:37:12 Test Item Value Reference Interpretation Comments Range SARS-CoV-2 PRESUMPTIVE SEE NOTE A NOTE: PRESUMPT FIDENCIO INTERPRETATION POSITIVE POSITIVE RESU LTS (test code = 95112) ARE MOST CONSISTENT WITH SARS-COV-2 NEAR THE LIMIT OF DETECTION OF TH E ASSAY. OTHER UNCOMMON POSSIBLECAUSES ARE A MUTATION IN O NE OF THE TARGET REGIONS, INFECT ION WITHANOTHER SARBECOVIRUS OR LABORATORY ISSU ES. CORRELATE WITH CLINICALHISTORY AND EPIDEMIOLOGIC FINDINGS. SOURCE (test code = NASOPHARYNGEAL Note: Methodology 02303) is Ronit Jagdeep Real-Time RT-PC R. The [...] provided by method given in report:https:// www. [employer]/DermApprovedi ans/client-comm unic ations/ Alternatively, see downloadable PD F fact sheet at:https://www. [employer]/COVID-1 9-RT -PCR Note: Methodology is Ronit Jagdeep [...] are provided by method given in report:https:// [email or web address] ans/client-comm unic ations/ Alternatively, see downloadable PD F fact sheet at:https://[email or web address]-1 9-RT -PCR UNLESS OTHERWISE INDICATED, ALL TESTING PERFORM ED ATCLINICAL PATHOLOGY LABORATORIES, [facility]. [address] [place] [address] 4 [employer]PUTER SYSTEM[employer] SECURITY ADMINISTRATOR: ELIF MADISON M.D. CLIA NUMBER [id number] CAP ACCREDITATION N O. [id number] SARS-CoV-2 (COVID-19) by RT-PCR (HIGH RISK)2021-09-09 00:00:00 Test Item Value Reference Range Interpretation Comments SARS-CoV-2 PRESUMPTIVE POSITIVE INTERPRETATION (test code = 23593) SOURCE (test code = NASOPHARYNGEAL 90640) SARS-CoV-2 (COVID-19) by RT-PCR (HIGH RISK)2021-09-09 00:00:00 Test Item Value Reference Range Interpretation Comments SARS-CoV-2 PRESUMPTIVE POSITIVE INTERPRETATION (test code = 43116) SOURCE (test code = NASOPHARYNGEAL 28056) BASIC METABOLIC PANEL (NA, K, CL, CO2, GLUCOSE, BUN, CREATININE, CA)2021-08-25 01:45:53 Test Item Value Reference Range Interpretation Comments NA (test code = 136 mmol/L 135-145 1565766056) K (test code = 4.1 mmol/L 3.5-5.0 5947303119) CL (test code = 102 mmol/L 98-108 2411120696) CO2 TOTAL (test code = 29 mmol/L 23-31 6570126546) AGAP (test code = 2-16 7689438760) BUN (test code = 9 mg/dL 7-23 7827004302) GLUCOSE (test code = 92 mg/dL 70-110 0511628444) CREATININE (test code = 0.54 mg/dL 0.50-1.04 8481354272) CALCIUM (test code = 8.5 mg/dL 8.6-10.6 L 0720706286) eGFR (test code = mL/min/1.73m2 9012528451) EMERALD (test code = EMERALD) Association of [...] tests). Lab Interpretation Abnormal (test code = 93982-8) [facility] WITH [id number] 01:34:37 Test Item Value Reference Range Interpretation Comments WBC (test code = See_Comment [Automated 9781-2) message] The sy stem which generated this result transmitted reference range : 4.30 - 11.10 10*3/?L. The reference range was not used to interpret this result as normal/abnormal . RBC (test code = See_Comment [Automated 342-8) message] The sy stem which generated this [...] RDW-SD (test code = 41.3 fL 39.0-49.9 57154-2) RDW-CV (test code = 12.7 % 12.0-15.5 788-0) PLT (test code = See_Comment [Automated 297-3) message] The sy stem which generated this result transmitted reference range : 166 - 358 10*3/ ?L. The reference r lexy was not used to interpret this result as normal/abnormal . MPV (test code = 9.1 fL 9.5-12.9 L 40203-7) NRBC/100 WBC (test See_Comment [Automat ed code = 6312899618) message] The system which generated this result transmitted reference range : 0.0 - 10.0 /100 WBCs. The refer ence range was not u sed to interpret th is result as normal/abnormal . NRBC x10^3 (test code <0.01 See_Comment [Auto mated = 3954269154) message] The s ystem which generated this result transmitted reference range : 10*3/?L. The reference range was not used to interpret this result as normal/abnormal . GRAN MAT (NEUT) % 49.6 % (test code = 770-8) IMM GRAN % (test code 0.20 % = 8421195830) LYMPH % (test code = 39.5 % 736-9) MONO % (test code = 9.0 % 5905-5) EOS % (test code = 1.3 % 713-8) BASO % (test code = 0.4 % 706-2) GRAN MAT x10^3(ANC) 2.36 10*3/uL 1.88-7.09 (test code = 2599273361) IMM GRAN x10^3 (test <0.03 0.00-0.06 code = 9172776527) LYMPH x10^3 (test code 1.88 10*3/uL 1.32-3.29 = 731-0) MONO x10^3 (test code 0.43 10*3/uL 0.33-0.92 = 742-7) EOS x10^3 (test code = 0.06 10*3/uL 0.03-0.39 711-2) BASO x10^3 (test code <0.03 0.01-0.07 = 704-7) Lab Interpretation Abnormal (test code = 65291-5) [facility] [id number] 01:28:00 Test Item Value Reference Range Interpretation Comments POCT PREG (test code = 1605) negative On board controls acceptable with present C Line (test code = 3574) POCT PREG LOT # (test code = 3575) [id number] POCT PREG TEST DATE (test 09/28/2022 code = 3576) Lab Interpretation (test code = Normal 25673-4) [facility]2020-12-10 05:28:49 Test Item Value Reference Range Interpretation Comments AMPHET (test code = Negative Negative 4655442238) Cocaine Metabolite (test Negative Negative code = 9322138050) OPIATES (test code = Presumptive Positive Negative A 6182288804) THC (test code = Negative Negative 2438350984) EMERALD (test code = EMERALD) Urine Drug Cutoff Ranges Amphetamine: ? 1,000 ng/mLCocaine: ? 150 ng/mLOpiates: ? 300 ng/mLCannabinoids: ?50 ng/mL The results are to be used only for medical (i.e., treatment) purposes. Unconfirmed screening results must not be used for non-medical purposes (e.g., employment testing, legal testing). Lab Interpretation (test Abnormal code = 60062-7) [facility] CenterCT [facility] PEL[facility] WO [id number] 04:25:17No acute intra-abdominal or pelvic abnormality. No genitourinary stones. Complex right ovarian cyst,likely hemorrhagic cyst measuring 3.8 cm RL: 6200AF: 26505 Patient name: LORNA SIMSB: 1995 25 years EXAMINATION: CT ABDOMEN PELVIS [...] 12/09/2020 11:26 PM CDTPatient name: LORNA BREWER NIRASHAUNDOB: 1995 25 years EXAMINATION: CT ABDOMEN PELVISWO [...] likely hemorrhagic cyst measuring 3.8 cmRL: 6200AFC: 99169 [facility] CenterUrinalysis2021-04-14 02:12:28 Test Item Value Reference Range Interpretation Comments APPEARANCE (test code = Hazy Clear A 8132635284) COLOR (test code = Yellow Yellow 3282998834) PH (test code = 4.8-8.0 2154725156) SP GRAVITY (test code = 1.003-1.030 7139427081) GLU U QUAL (test code = Normal Normal 6395333355) BLOOD (test code = Negative Negative 4766657434) KETONES (test code = Negative Negative 0493831082) PROTEIN (test code = Negative Negative 2887-8) UROBILIN (test code = 4.0 mg/dL Normal A 0471026879) BILIRUBIN (test code = Negative Negative 4540218758) NITRITE (test code = Negative Negative 4926010707) LEUK HOLLEY (test code = Negative Negative 5926958281) RBC/HPF (test code = See_Comment H [Autom ated message] 0094726980) The system [employer] generated this result transmit héctor reference range : 0 - 3 HPF. The refe rence range was not u sed to interpret th is result as normal/abnormal . WBC/HPF (test code = See_Comment [Autom ated message] 3073872804) The system [employer] generated this result transmit héctor reference range : 0 - 5 HPF. The refe rence range was not u sed to interpret th is result as normal/abnormal . BACTERIA (test code = Negative Negative 8227409587) MUCOUS (test code = Slight Negative LPF A 9034817456) SQ EPITH (test code = HPF 2771184787) YEAST BUD (test code = See_Comment H [Aut omated message] 2220154965) The system [employer] generated this result transmit héctor reference range : <=1 HPF. The refere nce range was not u sed to interpret th is result as normal/abnormal . Lab Interpretation (test Abnormal code = 90391-4) [facility] CenterComplete Metabolic [id number] 02:09:13 Test Item Value Reference Range Interpretation Comments NA (test code = 137 mmol/L 135-145 1705018476) K (test code = 3.7 mmol/L 3.5-5.0 3119312463) CL (test code = 103 mmol/L 98-108 5016332185) CO2 TOTAL (test code 26 mmol/L 23-31 = 7488648163) AGAP (test code = 2-16 9875001341) BUN (test code = 12 mg/dL 7-23 5923313471) GLUCOSE (test code = 92 mg/dL 70-110 3769240799) CREATININE (test code 0.62 mg/dL 0.50-1.04 = 4917645178) TOTAL BILI (test code 0.4 mg/dL 0.1-1.1 = 7472942469) CALCIUM (test code = 8.9 mg/dL 8.6-10.6 8822329472) T PROTEIN (test code 7.1 g/dL 6.3-8.2 = 9038333732) ALBUMIN (test code = 4.4 g/dL 3.5-5.0 0286596516) ALK PHOS (test code = 79 U/L 34-122 3562561455) ALTv (test code = 16 U/L 5-35 1742-6) AST(SGOT) (test code 23 U/L 13-40 = 1486989570) eGFR (test code = mL/min/1.73m2 2173992260) EMERALD (test code = EMERALD) Association of [...] or urine or abnormalities in imaging tests). [facility] CenterLipase, [id number] 02:08:38 Test Item Value Reference Range Interpretation Comments LIPASE (test code = 6649103992) 53 U/L 0-220 Lab Interpretation (test code = Normal 81804-3) [facility] CenterCBC with [id number] 02:00:16 Test Item Value Reference Range Interpretation Comments WBC (test code = See_Comment [Automated message] 6690-2) The system [employer] generated this result transmitted ref erence range: 4.30 - 1 1.10 10*3/?L. The re ference range was not u sed to interpret this result as normal/abnor mal. RBC (test code = See_Comment [Automated message] 799-8) The system [employer] generated this result transmitted ref erence range: [...] RDW-SD (test code 42.6 fL 39.0-49.9 = 56621-2) RDW-CV (test code 13.2 % 12.0-15.5 = 788-0) PLT (test code = See_Comment [Automated message] 557-3) The system [employer] generated this result transmitted ref erence range: 166 - 35 8 10*3/?L. The re ference range was not u sed to interpret this result as normal/abnor mal. MPV (test code = 9.5 fL 9.5-12.9 23663-8) NRBC/100 WBC (test See_Comment [Automat ed message] code = 6005642019) The syste m which generated this result transmitted ref erence range: 0.0 - 10 .0 /100 WBCs. The refer ence range was not u sed to interpret this result as normal/abnor mal. NRBC x10^3 (test <0.01 See_Comment [Automated message] code = 9906205451) The syste m which generated this result transmitted ref erence range: 10*3/?L. The reference range was not used to interpr et this result as normal/abnormal . GRAN MAT (NEUT) % 59.6 % (test code = 770-8) IMM GRAN % (test 0.30 % code = 6902814395) LYMPH % (test code 31.8 % = 736-9) MONO % (test code 6.4 % = 5905-5) EOS % (test code = 1.4 % 713-8) BASO % (test code 0.5 % = 706-2) GRAN MAT 5.15 10*3/uL 1.88-7.09 x10^3(ANC) (test code = 5033860921) IMM GRAN x10^3 0.03 10*3/uL 0.00-0.06 (test code = 0604272693) LYMPH x10^3 (test 2.75 10*3/uL 1.32-3.29 code = 731-0) MONO x10^3 (test 0.55 10*3/uL 0.33-0.92 code = 742-7) EOS x10^3 (test 0.12 10*3/uL 0.03-0.39 code = 711-2) BASO x10^3 (test 0.04 10*3/uL 0.01-0.07 code = 704-7) [facility] CenterPOCT [id number] 01:46:00 Test Item Value Reference Range Interpretation Comments POCT PREG (test code = 1605) negative On board controls acceptable with C present Line (test code = 3574) Lab Interpretation (test code = Normal 69860-4) [facility] CenterSARS-CoV-2 (COVID-19) by RT-PCR (HIGH RISK) 2020-12-03 00:00:00 Test Item Value Reference Range Interpretation Comments SARS-CoV-2 INTERPRETATION (test NEGATIVE code = 74990) SOURCE (test code = 33744) NOT SPECIFIED SARS-CoV-2 (COVID-19) by RT-PCR (HIGH RISK)2020-12-03 00:00:00 Test Item Value Reference Range Interpretation Comments SARS-CoV-2 INTERPRETATION (test NEGATIVE code = 83573) SOURCE (test code = 85664) NOT SPECIFIED PAP TEST, THINPREP, [id number] 00:00:00 Test Item Value Reference Range Interpretation Comments SOURCE: (test code = Cervical/Endocervical 8001) SLIDES: (test code = 1 8011) LMP: (test code = 03/16/17 8021) SPECIMEN ADEQUACY: (NOTE) (test code = 38208) INTERPRETATION: (test NO EPITHELIAL code = 32793) ABNORMALITY SEE BELOW PACKAGE PICK UP: LITO Skaggs(ASCP) (test code = 8101) QC TECHNOLOGIST: Jg Humphrey, (test code = 8111) CT(ASCP)IAC LOCATION: (test code (NOTE) = 52772) CPT: (test code = (NOTE) 8140) PAP TEST, THINPREP, [id number] 00:00:00 Test Item Value Reference Range Interpretation Comments SOURCE: (test code = Cervical/Endocervical 8001) SLIDES: (test code = 1 8011) LMP: (test code = 03/16/17 8021) SPECIMEN ADEQUACY: (NOTE) (test code = 35360) INTERPRETATION: (test NO EPITHELIAL code = 79456) ABNORMALITY SEE BELOW PACKAGE PICK UP: LITO Skaggs(ASCP) (test code = 8101) QC TECHNOLOGIST: Jg Humphrey, (test code = 8111) CT(ASCP)IAC LOCATION: (test code (NOTE) = 26528) CPT: (test code = (NOTE) 8140) GC AND CHLAMYDIA AMPLIFIED, [id number] 00:00:00 Test Item Value Reference Range Interpretation Comments GONORRHEA, TMA (test code = 79429) NEGATIVE CHLAMYDIA, TMA (test code = 60850) NEGATIVE GC AND CHLAMYDIA AMPLIFIED, [id number] 00:00:00 Test Item Value Reference Range Interpretation Comments GONORRHEA, TMA (test code = 77511) NEGATIVE CHLAMYDIA, TMA (test code = 48871) NEGATIVE HIV AB/AG COMBO RFLX [id number] 00:00:00 Test Item Value Reference Range Interpretation Comments HIV 1/2 4TH GEN, RFLX CONF (test NON-REACTIVE code = 3514) HIV AB/AG COMBO RFLX [id number] 00:00:00 Test Item Value Reference Range Interpretation Comments HIV 1/2 4TH GEN, RFLX CONF (test NON-REACTIVE code = 3514) [id number] 00:00:00 Test Item Value Reference Range Interpretation Comments RPR RESULT (test code = NON-REACTIVE 3501) RPR TITER (test code = 3500) NOT INDIC. TITER [id number] 00:00:00 Test Item Value Reference Range Interpretation Comments RPR RESULT (test code = NON-REACTIVE 3501) RPR TITER (test code = 3500) NOT INDIC. TITER [id number] 00:00:00 Test Item Value Reference Range Interpretation Comments RPR RESULT (test code = NON-REACTIVE 3501) RPR TITER (test code = 3500) NOT INDIC. TITER ACUTE HEPATITIS [id number] 00:00:00 Test Item Value Reference Range Interpretation Comments HEPATITIS A IgM (test code = NON-REACTIVE 89160) HEPATITIS B CORE IgM (test code NON-REACTIVE = 4644) HEPATITIS B SURF AG (test code = NON-REACTIVE 2739) HEPATITIS C ANTIBODY (test code NON-REACTIVE = 4675) INTERPRETATION HEPATITIS A: (NOTE) (test code = 2552) INTERPRETATION HEPATITIS B: (NOTE) (test code = 46612) INTERPRETATION HEPATITIS C: (NOTE) (test code = 92129) ACUTE HEPATITIS [id number] 00:00:00 Test Item Value Reference Range Interpretation Comments HEPATITIS A IgM (test code = NON-REACTIVE 30691) HEPATITIS B CORE IgM (test code NON-REACTIVE = 4644) HEPATITIS B SURF AG (test code = NON-REACTIVE 2739) HEPATITIS C ANTIBODY (test code NON-REACTIVE = 4675) INTERPRETATION HEPATITIS A: (NOTE) (test code = 2552) INTERPRETATION HEPATITIS B: (NOTE) (test code = 45663) INTERPRETATION HEPATITIS C: (NOTE) (test code = 64768)"
[2023-05-17 19:15] LABS: SARS-CoV-2 Antigen Rapid Res Positive (Negative)
--- NOTE | 2023-05-17 19:30 | EDPHYS ---
Physician Documentation [facility] Name: Lilia Nunez Age: 28 yrs Sex: Female : 1995 Arrival Date: 05/17/2023 Time: 18:32 Bed IW4 Private MD: ED Physician Aly Zarate HPI: 05/17 18:43 This 28 yrs old Female presents to ER via Ambulatory with complaints of Flu ms3 Symptoms. 18:43 28-year-old female with past medical history of anxiety and asthma presents for body ms3 aches, cough that began this morning. Patient states her boss recently had COVID last week. Patient states her discomfort is an 8/10 described as aching. Patient denies alleviating or inciting factors. Patient states she took DayQuil and allergy medication this morning without relief.. Historical: - Allergies: 18:38 No Known Allergies; mb9 - Home Meds: 18:38 None [Active]; mb9 - PMHx: 18:38 Anxiety; Asthma; mb9 - PSHx: 18:38 None; mb9 - Immunization history:: Adult Immunizations up to date. - Social history:: Smoking status: Patient denies any tobacco usage or history of. ROS: 18:43 Constitutional: Negative for fever, and chills. Cardiovascular: Negative for chest ms3 pain, and palpitations. Respiratory: Negative for shortness of breath, cough, wheezing, and pleuritic chest pain, Abdomen/GI: Negative for abdominal pain, nausea, vomiting, diarrhea, and constipation, MS/Extremity: Negative for injury and deformity, Skin: Negative for injury, rash, and discoloration, 18:43 ENT: Positive for nasal discharge, rhinorrhea, sore throat, 18:43 All other systems are negative, Exam: 18:43 Constitutional: This is a well developed, well nourished patient who is awake, alert, ms3 and in no acute distress. Head/Face: Normocephalic, atraumatic. Chest/axilla: Normal chest wall appearance and motion. Nontender with no deformity. Cardiovascular: Regular rate and rhythm with a normal S1 and S2. No gallops, murmurs, or rubs. Normal PMI, no JVD. No pulse deficits. Respiratory: Lungs have equal breath sounds bilaterally, clear to auscultation and percussion. No rales, rhonchi or wheezes noted. No increased work of breathing, no retractions or nasal flaring. Abdomen/GI: Soft, non-tender, with normal bowel sounds. No distension or tympany. No guarding or rebound. No evidence of tenderness throughout. 18:43 ENT: Nose: Nasal mucosa: edematous, Mouth: Posterior pharynx: erythema, that is moderate, Vital Signs: 18:37 BP 125 / 88; Pulse 84; Resp 18; Temp 98.4; Pulse Ox 100% on R/A; Weight 79.38 kg; mb9 Height 5 ft. 2 in. ; 18:37 Body Mass Index 32.01 (79.38 kg, 157.48 cm) 9 MDM: 18:43 Patient medically screened. ms3 18:43 Differential Diagnosis: Bronchitis Influenza Upper Respiratory Infection. ms3 19:29 Data reviewed: vital signs, nurses notes, lab test result(s), and as a result, I will ms3 discharge patient. Counseling: I had a detailed discussion with the patient and/or guardian regarding the historical points, exam findings, and any diagnostic results supporting the discharge/admit diagnosis, lab results, the need for outpatient follow up, to return to the emergency department if symptoms worsen or persist or if there are any questions or concerns that arise at home. Special discussion: I discussed with the patient/guardian in detail that at this point there is no indication for admission to the hospital. It is understood, however, that if the symptoms persist or worsen the patient needs to return immediately for re-evaluation. ED course: Discussed positive COVID results with patient. Patient to follow-up with primary care physician in 2 to 3 days. Patient understands agrees plan. All questions were answered. Return precautions discussed include worsening symptoms, or any other concerns. 05/17 18:40 Order name: Flu; Complete Time: 19:28 [facility] 05/17 18:41 Order name: Strep [facility] 05/17 18:41 Order name: SARS RAPID; Complete Time: 19:28 [facility] 05/17 19:27 Order name: Throat Culture EDMS Administered Medications: No medications were administered Disposition Summary: 05/17/23 19:29 Discharge Ordered Notes: Location: Home ms3 Condition: Stable ms3 Diagnosis - SARS-associated coronavirus as the cause of diseases classified elsewhere ms3 - Cough ms3 - Myalgia ms3 Followup: ms3 - With: Louis North DO - When: 2 - 3 days - Reason: Recheck today's complaints Discharge Instructions: - Discharge Summary Sheet ms3 - Cough, Adult ms3 - COVID-19 ms3 - 10 Things You Can Do to Manage Your COVID-19 Symptoms at Home - [facility] [place]03/13/[place] ms3 Forms: - Medication Reconciliation Form ms3 - Thank You Letter ms3 - Antibiotic Education ms3 - Prescription Opioid Use ms3 - Patient Portal Instructions ms3 - Leadership Thank You Letter ms3 - Work release form pf1 Prescriptions: - Tessalon Perles 100 mg Oral Capsule - take 1 capsule ORAL route every 8 hours As needed; 15 capsule; Refills: 0, ms3 Product Selection Permitted Signatures: Dispatcher [employer] Aly Canela DO DO ms3 Nicole Gaston, RN RN mb9
--- NOTE | 2023-05-17 19:30 | ER ---
Nurse's Notes [facility] Name: Lilia Nunez Age: 28 yrs Sex: Female : 1995 Arrival Date: 05/17/2023 Time: 18:32 Bed IW4 Private MD: Diagnosis: SARS-associated coronavirus as the cause of diseases classified elsewhere;Cough;Myalgia Presentation: 05/17 18:37 Chief complaint: Patient states: "Since last week, I haven't felt good. My boss has mb9 COVID and I feel like I may have it or the flu. I've cough, sore throat, congestion, and feeling hot". Coronavirus screen: Vaccine status: Patient reports receiving the 2nd dose of the covid vaccine. Ebola Screen: No symptoms or risks identified at this time. Initial Sepsis Screen: Does the patient meet any 2 criteria? No. Patient's initial sepsis screen is negative. Does the patient have a suspected source of infection? No. Patient's initial sepsis screen is negative. Risk Assessment: Do you want to hurt yourself or someone else? Patient reports no desire to harm self or others. Onset of symptoms was May 17, 2023. 18:37 Method Of Arrival: Ambulatory mb9 18:37 Acuity: TERRY 4 mb9 Triage Assessment: 18:39 General: Appears in no apparent distress. Behavior is. Pain: Denies pain. EENT: Reports mb9 nasal congestion. Neuro: Lang Agitation-Sedation Scale (RASS): 0 - Alert and Calm Level of Consciousness is awake, alert, obeys commands, Oriented to person, place, time, situation, Appropriate for age. Cardiovascular: Patient's skin is warm and dry. Respiratory: Reports cough that is. GI: Patient currently denies diarrhea, nausea, vomiting. : No signs and/or symptoms were reported regarding the genitourinary system. Derm: Skin is pink, warm \\T\\ dry. Musculoskeletal: Range of motion: intact in all extremities. Historical: - Allergies: 18:38 No Known Allergies; mb9 - Home Meds: 18:38 None [Active]; mb9 - PMHx: 18:38 Anxiety; Asthma; mb9 - PSHx: 18:38 None; mb9 - Immunization history:: Adult Immunizations up to date. - Social history:: Smoking status: Patient denies any tobacco usage or history of. Screenin:20 Abuse screen: Denies threats or abuse. Nutritional screening: No deficits noted. pf1 19:20 [facility] ED Fall Risk Assessment (Adult) History of falling in the last 3 months, pf1 including since admission No falls in past 3 months (0 pts) Confusion or Disorientation No (0 pts) Intoxicated or Sedated No (0 pts) Impaired Gait No (0 pts) Mobility Assist Device Used No (0 pt) Altered Elimination No (0 pt) Score/Fall Risk Level 0 - 2 = Low Risk Oriented to surroundings, Maintained a safe environment, Educated pt \\T\\ family on fall prevention, incl call for assistance when getting out of bed, Assessed \\T\\ reinforced patient's understanding of fall precautions, Provided non-skid footwear, Hourly rounding (assess needs \\T\\ fall precautionary measures) done, Used ambulatory aids as needed (educated on \\T\\ assisted with), Used gait belt as appropriate. Tuberculosis screening: No symptoms or risk factors identified. Assessment: 18:39 Reassessment: see triage assessment. mb9 Vital Signs: 18:37 BP 125 / 88; Pulse 84; Resp 18; Temp 98.4; Pulse Ox 100% on R/A; Weight 79.38 kg; mb9 Height 5 ft. 2 in. ; 18:37 Body Mass Index 32.01 (79.38 kg, 157.48 cm) mb9 ED Course: 18:35 Patient arrived in ED. im 18:37 Aly Zarate DO is Attending Physician. ms3 18:38 Triage completed. mb9 18:39 Arm band placed on. mb9 18:45 SARS RAPID Sent. mb9 18:45 Strep Sent. mb9 18:45 Flu Sent. mb9 19:00 Patient has correct armband on for positive identification. pf1 19:29 Louis North DO is Referral Physician. ms3 19:51 No provider procedures requiring assistance completed. Patient did not have IV access pf1 during this emergency room visit. 19:52 Provided Education on: prescription medication. pf1 Administered Medications: No medications were administered Medication: 19:52 VIS not applicable for this client. pf1 Outcome: 19:29 Discharge ordered by . ms3 19:51 Discharged to home pf1 19:51 Condition: stable 19:51 Discharge instructions given to Patient left before signing discharge paperwork 19:52 Patient left the ED. pf1 Signatures: Aly Zarate DO DO ms3 Nicole Gaston RN RN mb9 Tessa Salazar RN RN pf1 Kathy Macedo
[2023-05-17 20:54] VITALS: BP 125/88; TEMP 98.4; O2SAT 100
== END 2023-05-17 19:52 | disposition home or self-care (01) ==
LOC: ER 18:32
DX: U07.1 COVID-19 (principal); M79.10 Myalgia, unspecified site
CPT/HCPCS: 36415; 87070; 87081; 87804; 87811

== ENCOUNTER 2023-07-04 12:13 | Emergency (ER) | payer BC ==
--- OUTSIDE RECORDS SUMMARY | 2023-07-04 12:17 | XMS REPORT | Continuity of Care Document ---
:1995 Author Organization [facility] t Address [address] [facility] [address] [place] [address] Care Team Providers Name Role Phone Dena Perry Primary Care Physician [phone] SREE LOPEZ Attending Clinician Unavailable Sree Lopez MD Attending Clinician QIANA VALDEZ Attending Clinician Unavailable Qiana Kinney Attending Clinician Elliot Fletcher Attending Clinician ELLIOT FRASER Attending Clinician Unavailable Amber Cardozo NP Attending Clinician Payers Payer Name Policy Type Policy Number Effective Date Expiration Date S [facility] MEDICAID PENDING PENDING 2021 00:00:00 Problems Condition Condition Condition Status Onset Resolution Last Treating Co mments Source Name Details Category Date Date Treatment Clinician Date No known No known Disease Unive rs active active ity of problems problems [facility] Allergies, Adverse Reactions, Alerts Allergy Allergy Status Severity Reaction(s) Onset Inactive Treating Comm ents Source Name Type Date Date Clinician NO KNOWN Drug Active Univers ALLERGIE Class ity of S [facility] Social History Social Habit Start Date Stop Date Quantity Comments Source History of tobacco Cigarette Smoker University [facility] Exposure to 2022-08-31 2022-09-10 Not sure University SARS-CoV-2 (event) 00:00:00 12:55:00 [facility] Cigarettes smoked 2017-07-12 2017-07-12 Univers ity of current (pack per 00:00:00 00:00:00 [facility] ) - Reported Branch Tobacco use and 2017-07-12 2017-07-12 Smokeless Universit y of exposure 00:00:00 00:00:00 tobacco non-user [facility] Sex Assigned At [birth year] Universit y of 00:00:00 00:00:00 [facility] Smoking Status Start Date Stop Date Source Smokes tobacco daily 2017-07-12 00:00:00 [facility] ity [facility] Medications Ordered Filled Start Stop Current Ordering Indication Dosage Frequency Signature Comments Components Source Medication Medication Date Date Medication? Clinician (SIG) Name Name LORazepam No 1mg 1 mg, Univer s (ATIVAN) 09-10 Oral, ity of tablet 1 mg 19:30: 19:43 [place] dose, On Medical Fri Branch 09/10/22 at 1330, VIVIEN hydrOXYzine Yes [id number] 25mg Take 1 Univers (VISTARIL) 09-10 capsule by ity of 25 mg 00:00: mouth 2 [place] capsule 00 (two) Medical times [place] daily as needed for Anxiety. Dose 2021-0 [...] No 500mg 500 mg, U nivers (ROCEPHIN) 2-28 12-28 Intramuscu it y of injection 03:45: 02:59 lar, ONCE, [place] 500 mg 00 :00 1 dose, On Medical [facility] Branch 08/24/21 at 2145, VIVIEN
Re ason for Anti-Infec tive: Documented Infection< br>Documen héctor Infection Site: Pelvic
Duration of Therapy: 7 days NaCl 0.9% 2020-08 No 1000mL at 999 Uni vers (NS) bolus 10-26 12-28 mL/hr, ity of infusion 02:00: 02:45 1,000 mL, [place] as 1,000 mL 00 :00 IV Medical Infusion, Branch ONCE, 1 dose, On 08/24/21 at 2000, VIVIEN doxycycline 2020-2021- No [id number] 100mg Take 1 Univers hyclate 100 10-25 01-04 [id number] capsule by i ty of mg capsule 00:00: 05:59 mouth 2 [place] 00 :00 (two) Medical times Branch daily for 7 days. traMADoL 2020- No 50mg 50 mg, Univer s (ULTRAM) [...] Indication s: acute pain clindamycin 2020- No [id number] 450mg Take 3 Univers 150 mg 03-26 [...] at 0800, Until Discontinu ed, Routine ketorolac No 30mg 30 mg, Unive rs (TORADOL) 12-10 Slow IV ity of injection 04:45: 03:51 Push, [place] 30 mg 00 :00 ONCE, 1 Medical dose, e Branch 12/09/20 at 2345, Routine
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 dicyclomine 2020- No [id number] 20mg Take 1 Univers 20 mg 12-10 [id number] tablet by ity of tablet 00:00: 00:00 mouth 4 [place] 00 :00 (four) Medical times Branch daily as needed for Abdominal pain. indomethaci 2020- No [id number] 50mg Take 1 Univers n 50 mg 12-10 [id number] capsule by ity of capsule 00:00: 04:59 mouth 2 [place] 00 :00 (two) Medical times Branch daily with meals for 7 days. Flonase No 12mcg/a Allergy 3-05 ctuatio Relief 50 00:00: n mcg/actuati 00 on nasal spray,suspe nsion Bromfed DM No 75mg/5 2 mg-30 3-05 mL mg-10 mg/5 00:00: mL oral 00 syrup HYDROcodone 2019-08- No 1{tbl} 1 tablet, Univers -acetaminop 06-16 Oral, ity of hen (NORCO 22:00: 21:06 ONCE, 1 [place] 5) 5-325 mg 00 :00 dose, Mon Med ical tablet 1 06/16/20 Branch tablet at 1700, VIVIEN ketorolac 2019-08 No 60mg 60 mg, Unive rs (TORADOL) 06-16 Intramuscu ity of injection 22:00: 21:07 lar, ONCE, [place] 60 mg 00 :00 1 dose, Medical [facility] Branch 06/16/20 at 1700, VIVIEN
Fa culty member approving Restricted medication : EMERGENCY ROOM, penicillin 2019-08- No [id number] 500mg Take 1 Univers v potassium 0-19 [...] needed for Nausea and Vomiting (N/V). ibuprofen 0 No 1mg 800 mg 5-03 tablet 00:00: 00 Vital Signs Vital Name Observation Time Observation Value Comments Source Systolic blood 2022-09-10 18:57:00 180 mm[Hg] Univer sity of pressure [place] [facility] [place] Diastolic blood 2022-09-10 18:57:00 115 mm[Hg] Unive rsity of [facility] Heart rate 2022-09-10 18:57:00 90 /min Universi ty of [facility] Body temperature 2022-09-10 18:57:00 36.83 Ariane Univ ersity of [facility] Respiratory rate 2022-09-10 18:57:00 20 /min Univ ersity of [facility] Body height 2022-09-10 18:57:00 157.5 cm Universi ty of [facility] Body weight 2022-09-10 18:57:00 79.379 kg Universi ty [facility] BMI 2022-09-10 18:57:00 32.01 kg/m2 Universi ty [facility] Oxygen saturation in 2022-09-10 18:57:00 99 /min University of Arterial blood by [facility] Pulse oximetry Branch Systolic blood 2021-08-25 02:00:00 120 mm[Hg] Univer sity of [facility] Diastolic blood 2021-08-25 02:00:00 82 mm[Hg] Unive rsity of [facility] Heart rate 2021-08-25 02:00:00 82 /min Universi ty [facility] Medical [place] Respiratory rate 2021-08-25 02:00:00 15 /min [facility] Oxygen saturation in 2021-08-25 02:00:00 100 /min University of Arterial blood by [facility] Pulse oximetry Branch Body temperature 2021-08-25 00:45:00 37.17 Ariane Univ ersity of [place] [facility] [place] Body weight 2021-08-25 00:45:00 86.183 kg Universi ty of [place] [facility] [place] BMI 2021-08-25 00:45:00 34.75 kg/m2 Universi ty of [place] [facility] [place] Systolic blood 2021 20:13:00 108 mm[Hg] Univer sity of pressure [place] [facility] Diastolic blood 2021 20:13:00 86 mm[Hg] Unive rsity of pressure [place] [facility] Heart rate 2021 20:13:00 90 /min Universi ty of [place] [facility] Body temperature 2021 20:13:00 37.5 Ariane Univ ersity of [place] [facility] Respiratory rate 2021 20:13:00 18 /min Univ ersity of [place] [facility] Body height 2021 20:13:00 157.5 cm Universi ty of [place] [facility] Body weight 2021 20:13:00 88.905 kg Universi ty of [place] [facility] BMI 2021 20:13:00 35.85 kg/m2 Universi ty of [place] [facility] Oxygen saturation in 2021 20:13:00 100 /min University of Arterial blood by [facility] juan m Pulse oximetry Branch Systolic blood 2020-12-10 00:00:00 120 mm[Hg] Univer sity of pressure [place] [facility] Diastolic blood 2020-12-10 00:00:00 74 mm[Hg] Unive rsity of pressure [place] [facility] Heart rate 2020-12-10 00:00:00 71 /min Universi ty of [place] [facility] Body temperature 2020-12-10 00:00:00 37.5 Ariane Univ ersity of [place] [facility] Respiratory rate 2020-12-10 00:00:00 18 /min Univ ersity of [place] [facility] Body weight 2020-12-10 00:00:00 86.183 kg Universi ty of [place] [facility] BMI 2020-12-10 00:00:00 34.75 kg/m2 Universi ty of [place] [facility] Oxygen saturation in 2020-12-10 00:00:00 97 /min University of Arterial blood by [facility] juan m Pulse oximetry Branch Systolic blood 2020-12-10 00:00:00 120 mm[Hg] Univer sity of pressure [place] [facility] Diastolic blood 2020-12-10 00:00:00 74 mm[Hg] Unive rsity of pressure [place] [facility] Heart rate 2020-12-10 00:00:00 71 /min Universi ty of [place] [facility] Body temperature 2020-12-10 00:00:00 37.5 Ariane Univ ersity of [place] [facility] Respiratory rate 2020-12-10 00:00:00 18 /min Univ ersity of [place] [facility] Body weight 2020-12-10 00:00:00 86.183 kg Universi ty of [place] [facility] BMI 2020-12-10 00:00:00 34.75 kg/m2 Universi ty of [place] [facility] Oxygen saturation in 2020-12-10 00:00:00 97 /min University of Arterial blood by [facility] Pulse oximetry Branch Systolic blood 2020-06-16 20:21:00 132 mm[Hg] Univer sity of pressure [place] [facility] Diastolic blood 2020-06-16 20:21:00 74 mm[Hg] Unive rsity of pressure [place] [facility] Heart rate 2020-06-16 20:21:00 82 /min Universi ty of [place] [facility] Body temperature 2020-06-16 20:21:00 36.72 Ariane Univ ersity of [place] [facility] Respiratory rate 2020-06-16 20:21:00 20 /min Univ ersity of [place] [facility] Body height 2020-06-16 20:21:00 157.5 cm Universi ty of [place] [facility] Body weight 2020-06-16 20:21:00 86.183 kg Universi ty of [place] [facility] BMI 2020-06-16 20:21:00 34.75 kg/m2 Universi ty of [place] [facility] Oxygen saturation in 2020-06-16 20:21:00 100 /min University of Arterial blood by [facility] Pulse oximetry Branch Systolic blood 2020-06-16 20:21:00 132 mm[Hg] Univer sity of pressure [place] [facility] Diastolic blood 2020-06-16 20:21:00 74 mm[Hg] Unive rsity of pressure [place] [facility] Heart rate 2020-06-16 20:21:00 82 /min Universi ty of [place] [facility] Body temperature 2020-06-16 20:21:00 36.72 Ariane Univ ersity of [place] [facility] Respiratory rate 2020-06-16 20:21:00 20 /min Univ ersity of [place] [facility] Body height 2020-06-16 20:21:00 157.5 cm Universi ty of [place] [facility] Body weight 2020-06-16 20:21:00 86.183 kg Universi ty of [place] [facility] BMI 2020-06-16 20:21:00 34.75 kg/m2 Universi ty of [place] [facility] Oxygen saturation in 2020-06-16 20:21:00 100 /min University of Arterial blood by [facility] Pulse oximetry Branch BP Systolic 2021-11-04 11:02:00 [...] Performed POCT TEST 2022-09-10 19:42:00 Sree Lopez [facility] URINE DRUG (IMMUNOASSAY) 2022-09-10 19:41:00 Sree Lopez [facility] SCREEN URINALYSIS 2022-09-10 19:41:00 Sree Lopez [place] o [facility] CONSENT/REFUSAL FOR 2022-09-10 18:46:57 [facility]igned[facility] POCT TEST 2021-08-25 01:28:00 Qiana Valdez [facility] BASIC METABOLIC PANEL 2021-08-25 01:26:00 Qiana Valdez [facility] (NA, K, CL, CO2, Medical Branch GLUCOSE, BUN, CREATININE, CA) CBC WITH DIFF 2021-08-25 01:26:00 Qiana Valdez [facility] URINALYSIS 2021-08-25 01:26:00 Qiana Valdez [facility] CONSENT/REFUSAL FOR 2021-08-25 00:39:27 Doctor Unassigned, [facility] CONSENT/REFUSAL FOR 2021 20:08:24 Doctor Unassigned, No Un [facility] [place] DIAGNOSIS AND TREATMENT Name Medical Branch CT ABDOMEN PELVIS WO 2020-12-10 04:09:17 Amber Cardozo [facility] CONTRAST [facility] URINE DRUG (IMMUNOASSAY) 2020-12-10 03:57:00 Amber Cardozo Un [facility] [place] - 4 ER PANEL [facility] Branch POCT TEST 2020-12-10 01:46:00 Johnnie Olivarez [facility] LIPASE 2020-12-10 01:44:00 Johnnie Olivarez [facility] COMP. METABOLIC PANEL 2020-12-10 01:44:00 Johnnie Olivarez [facility] ([id number]) [facility] CBC WITH DIFF 2020-12-10 01:44:00 Johnnie Olivarez [facility] URINALYSIS 2020-12-10 01:44:00 Johnnie Olivarez [facility] NOTICE OF PRIVACY 2020-12-09 23:56:35 Doctor Unassigned, No Univ ersity [facility] PRACTICES [facility] CONSENT/REFUSAL FOR 2020-12-09 23:55:46 Doctor Unassigned, No Un [facility] [place] DIAGNOSIS AND TREATMENT [facility] CONSENT/REFUSAL FOR 2020-06-16 20:19:26 Doctor Unassigned, No Un [facility] [place] DIAGNOSIS AND TREATMENT Name [facility] Plan of Care Planned Activity Planned Date Details Comments Source Goal Plan of Care Note [code = 82481-6] Goal Plan of Care Note [code = 98391-8] Goal Plan of Care Note [code = 21559-7] Goal Plan of Care Note [code = 95903-8] Goal Plan of Care Note [code = 80649-3] Goal Plan of Care Note [code = 28358-9] Goal Plan of Care Note [code = 21222-5] Goal Plan of Care Note [code = 36403-7] Goal Plan of Care Note [code = 77183-9] Goal Plan of Care Note [code = 00233-5] Goal Plan of Care Note [code = 34621-0] Goal Plan of Care Note [code = 89966-9] Goal Plan of Care Note [code = 18821-9] Goal Plan of Care Note [code = 20882-0] Goal Plan of Care Note [code = 13144-3] Goal Plan of Care Note [code = 26444-3] Goal Plan of Care Note [code = 05673-1] Goal Plan of Care Note [code = 65333-0] Goal Plan of Care Note [code = 11462-3] Goal Plan of Care Note [code = 92366-1] Goal Plan of Care Note [code = 27114-4] Goal Plan of Care Note [code = 99223-0] Goal Plan of Care Note [code = 25175-7] Goal Plan of Care Note [code = 01413-6] Goal Plan of Care Note [code = 67004-1] Goal Plan of Care Note [code = 12633-1] Encounters Start End Encounter Admission Attending Care Care Encounter Source Date/Time Date/Time Type Type Clinicians Facility Department ID 2022-09-11 Outpatient [facility] [id number] [place] 22:37:13 [id number] [facility] 2023-03-15 2023-03-15 Outpatient [facility] [id number] Mariusz 08:16:23 08:16:23 0718 F [place] 2022-09-10 2022-09-10 Emergency X VASUT, [facility] ERT [id number] Univers 12:58:00 16:23:00 SREE [facility] 2022-09-10 2022-09-10 Emergency Vasut, [facility] [id number] Univers 12:58:00 16:23:00 Sree LOONEY [id number] i [facility] 4.2.7.2.686 [facility] [id number] [place] [address] Branch 2022-04-02 2022-04-02 Outpatient [id number] 00:00:00 00:00:00 Visit [id number] 2021-08-24 2021-08-24 Emergency X VALDEZ, [facility] ERT [id number] Univers 18:46:00 21:11:00 [facility] 2021-08-242021-08-24 Emergency Valdez, [facility] [id number] Univers 18:46:00 21:11:00 Qiana LOONEY [id number] i ty [facility] 4.2.7.2.686 [facility] [id number] [address] 2021 2021 Emergency Fraser, [facility] [id number] Univers 15:14:00 16:17:00 Elliotlm [place] [id number] i ty of [place] [address] [place] [id number] 2021 2021 Emergency X EVELIO, [facility] ERT [id number] Univers 15:08:00 15:08:00 ELLIOT ity [facility] 2020-12-09 2020-12-10 Emergency Drever, [facility] [id number] Univers 19:02:00 01:46:00 Amber Looney [id number] ity of [place] [address] [place] [id number] 2020-12-09 2020-12-10 Emergency Drever, [facility] [id number] 19:02:00 01:46:00 Amber Looney [id number] [place] [address] [place] [address] [id number] [facility] 2020-12-09 2020-12-09 Emergency X [facility] ERT [id number] Univers 18:54:00 18:54:00 ity of [facility] 2020-06-16 2020-06-16 Emergency Valdez, [facility] [id number] Univers 15:24:00 17:00:00 Qiana Looney [id number] i ty of [place] 4.2.7.2.686 [facility] [id number] [address] 2020-06-16 2020-06-16 Emergency Valdez, [facility] [id number] 15:24:00 17:00:00 Qiana Looney [id number] [place] 4.2.7.2.686 [place] [id number] 2020-06-16 2020-06-16 Emergency X [facility] ERT [id number] Univers 15:18:00 15:18:00 [facility] 2020-01-27 2020-01-27 Emergency X [facility] ERT [id number] Univers 14:14:00 14:14:00 [facility] Results Test Description Test Time Test Comments Results Result Comments Source POCT TEST 2022-09-10 19:42:00 Test Item Value Reference Range Interpretation Comme nts POCT PREG (test code = 1605) negative On board controls acceptable with C Line (test code = 3574) present POCT PREG LOT # (test code = 3575) [id number] POCT PREG TEST DATE (test code = 3576) 11-27-2023 Lab Interpretation (test code = 45523-8) [facility], [id number] 09:47:06 Test Item Value Reference Range Interpretation Comments SOURCE: (test Cervical/Endoce code = 8001) rvical SLIDES: (test 1 code = 8011) LMP: (test code 10/27/2021 = 8021) SPECIMEN (NOTE) Satisfactory f or ADEQUACY: (test evaluation. code = 83409) Endocervical cells/transform ation zone component present. INTERPRETATION: NILM/NO EPITH. (test code = ABNORMALITY;SEE 78554) BELOW -------- - NEGATIVE FOR INTRAEPITHELIAL LESION OR MALIGNANCY ( NILM) -------- -------- -------- ---- PROCESS SAFETY ENGINEERING TECHNOLOGIST Nery Macedo : (test code = 8101) LOCATION: (test (NOTE) Specimens pr ocessed and code = 04247) interpreted at [facility], [address] [place] [address] 7875 4, Phone: , CLIA: [id number] CPT: (test code (NOTE) 30375 UNLESS OTHERWISE = 8140) INDICATED, COMP UTER [...] ESS OTHERWISE INDIC ATED, ALL TESTING PER [facility]. [address] [place] [id number] [facility] DIRECTOR: ELIF MADISON M.D. CLIA NUMBER [id number] CAP ACCREDITATION N O. [id number] PAP TEST, THINPREP, [id number] 00:00:00 Test Item Value Reference Range Interpretation Comments SOURCE: (test code = Cervical/Endocervical 8001) SLIDES: (test code = 1 8011) LMP: (test code = 8021) 10/27/2021 SPECIMEN ADEQUACY: (NOTE) (test code = 52159) INTERPRETATION: (test NILM/NO EPITH. code = 56427) ABNORMALITY;SEE BELOW PROCESS SAFETY ENGINEERING TECHNOLOGIST: (test Nery Macedo code = 8101) LOCATION: (test code = (NOTE) 28114) CPT: (test code = 8140) (NOTE) PAP TEST, THINPREP, [id number] 00:00:00 Test Item Value Reference Range Interpretation Comments SOURCE: (test code = Cervical/Endocervical 8001) SLIDES: (test code = 1 8011) LMP: (test code = 8021) 10/27/2021 SPECIMEN ADEQUACY: (NOTE) (test code = 85136) INTERPRETATION: (test NILM/NO EPITH. code = 78802) ABNORMALITY;SEE BELOW PROCESS SAFETY ENGINEERING TECHNOLOGIST: (test Nery Macedo code = 8101) LOCATION: (test code = (NOTE) 06993) CPT: (test code = 8140) (NOTE) VAGINAL PATHOGENS DNA [id number] 14:50:28 Test Item Value Reference Range Interpretation Comments DAMIR SPECIES (test NEGATIVE NEGATIVE code = ) G. VAGINALIS (test NEGATIVE NEGATIVE code = ) T. VAGINALIS (test NEGATIVE NEGATIVE UNLESS O THERWISE code = ) INDICATED, ALL TESTING PERFORMED [facility] PATHOLOGY LABOR [facility] [address] [place] [address] 4 LABORATORY DIRE CTOR: ELIF BLACK M.D. CLIA NUMBER [id number] [place] [id number] 06:56:09 Test Item Value Reference Range Interpretation Comments RPR RESULT (test code = NON-REACTIVE NON-REACTIVE 3501) RPR TITER (test code = 3500) NOT INDIC. TITER NOT INDIC. HIV 1/2 4TH GEN, RFLX [id number] 05:54:17 Test Item Value Reference Range Interpretation Comments HIV 1/2 4TH GEN, RFLX CONF (test NON-REACTIVE NON-REACTIVE code = 3514) HEPATITIS PANEL, [id number] 05:54:17 Test Item Value Reference Range Interpretation Comments HEPATITIS A IgM (test NON-REACTIVE NON-REACTIVE code = 04696) HEPATITIS B CORE IgM NON-REACTIVE NON-REACTIVE (test code = 4644) HEPATITIS B SURF AG NON-REACTIVE NON-REACTIVE (test code = 2739) HEPATITIS C ANTIBODY NON-REACTIVE NON-REACTIVE (test code = 4675) INTERPRETATION (NOTE) Hepatitis A HEPATITIS A: (test code sero logy shows no = 2552) evidence of acu te hepatitis A. INTERPRETATION (NOTE) Hepatitis B HEPATITIS B: (test code sero logy shows no = 90901) evidence of acu te hepatitis B and no indication of exposure to hepatitis B vir us in the previous jie eight months. INTERPRETATION (NOTE) Hepatitis C HEPATITIS C: (test code sero logy shows no = 54647) evidence of exposure to hepatitisC viru s at this time. I t can take up to 12 months after exposure tothe hepatitis C vir us for antibodies to become detectab le in the blood in certain patient s. HIV AB/AG COMBO RFLX [id number] 00:00:00 Test Item Value Reference Range Interpretation Comments HIV 1/2 4TH GEN, RFLX CONF (test NON-REACTIVE code = 3514) HIV AB/AG COMBO RFLX [id number] 00:00:00 Test Item Value Reference Range Interpretation Comments HIV 1/2 4TH GEN, RFLX CONF (test NON-REACTIVE code = 3514) ACUTE HEPATITIS [id number] 00:00:00 Test Item Value Reference Range Interpretation Comments HEPATITIS A IgM (test code = NON-REACTIVE 40534) HEPATITIS B CORE IgM (test code NON-REACTIVE = 4644) HEPATITIS B SURF AG (test code = NON-REACTIVE 2739) HEPATITIS C ANTIBODY (test code NON-REACTIVE = 4675) INTERPRETATION HEPATITIS A: (NOTE) (test code = 2552) INTERPRETATION HEPATITIS B: (NOTE) (test code = 60968) INTERPRETATION HEPATITIS C: (NOTE) (test code = 24797) ACUTE HEPATITIS [id number] 00:00:00 Test Item Value Reference Range Interpretation Comments HEPATITIS A IgM (test code = NON-REACTIVE 34381) HEPATITIS B CORE IgM (test code NON-REACTIVE = 4644) HEPATITIS B SURF AG (test code = NON-REACTIVE 2739) HEPATITIS C ANTIBODY (test code NON-REACTIVE = 4675) INTERPRETATION HEPATITIS A: (NOTE) (test code = 2552) INTERPRETATION HEPATITIS B: (NOTE) (test code = 29268) INTERPRETATION HEPATITIS C: (NOTE) (test code = 47304) [id number] 00:00:00 Test Item Value Reference Range Interpretation Comments RPR RESULT (test code = NON-REACTIVE 3501) RPR TITER (test code = 3500) NOT INDIC. TITER [id number] 00:00:00 Test Item Value Reference Range Interpretation Comments RPR RESULT (test code = NON-REACTIVE 3501) RPR TITER (test code = 3500) NOT INDIC. TITER [id number] 00:00:00 Test Item Value Reference Range Interpretation Comments RPR RESULT (test code = NON-REACTIVE 3501) RPR TITER (test code = 3500) NOT INDIC. TITER VAGINAL PATHOGENS DNA [id number] 00:00:00 Test Item Value Reference Range Interpretation Comments DAMIR SPECIES (test code = ) NEGATIVE G. VAGINALIS (test code = 07039) NEGATIVE T. VAGINALIS (test code = 36026) NEGATIVE VAGINAL PATHOGENS DNA [id number] 00:00:00 Test Item Value Reference Range Interpretation Comments DAMIR SPECIES (test code = ) NEGATIVE G. VAGINALIS (test code = 69307) NEGATIVE T. VAGINALIS (test code = 75623) NEGATIVE SARS-CoV-2 (COVID-19), RT-PCR/[id number] 13:12:43 Test Item Value Reference Interpretation Comments Range SARS-CoV-2 NEGATIVE SEE NOTE SARS-CoV-2 RNA NOT INTERPRETATION DETECTEDNegat fidencio (test code = 83136) results do not preclude SARS-C oV-2 infection [...] (test code = [place]OPHARY[place]: [place] [address]) Ronit Jagdeep Brooke l-Time RT-PCR. The exp [...] provided by met hod given in report:https:// [email or web address]/clinic ians/cl ient-communicat ions/ Alternatively, see downloadable PD F fact sheet at:https://www. Wote/COVID-19-R T-PCR UNLESS OTHERWIS E INDICATED, ALL TESTING PERFORMED [facility], [facility]. [address] [place] [address] DAWSON CARMONA DIRECTOR: ELIF MADISON M.D. [place] NUMBER [id number] CAP ACCREDITATION N O. [id number] SARS-CoV-2 (COVID-19) by RT-PCR (HIGH RISK)2021-09-16 00:00:00 Test Item Value Reference Range Interpretation Comments SARS-CoV-2 INTERPRETATION NEGATIVE (test code = 31068) SOURCE (test code = 17689) NASOPHARYNGEAL SARS-CoV-2 (COVID-19) by RT-PCR (HIGH RISK)2021-09-16 00:00:00 Test Item Value Reference Range Interpretation Comments SARS-CoV-2 INTERPRETATION NEGATIVE (test code = 77806) SOURCE (test code = 68845) NASOPHARYNGEAL SARS-CoV-2 (COVID-19), RT-PCR/[id number] 13:37:12 Test Item Value Reference Interpretation Comments Range SARS-CoV-2 PRESUMPTIVE SEE NOTE A NOTE: PRESUMPT FIDENCIO INTERPRETATION POSITIVE POSITIVE RESU LTS (test code = 66573) ARE MOST CONSISTENT WITH SARS-COV-2 NEAR THE LIMIT OF DETECTION OF TH E ASSAY. OTHER UNCOMMON POSSIBLECAUSES ARE A MUTATION IN O NE OF THE TARGET REGIONS, INFECT ION WITHANOTHER SARBECOVIRUS OR LABORATORY ISSU ES. CORRELATE WITH CLINICALHISTORY AND EPIDEMIOLOGIC FINDINGS. SOURCE (test code = NASOPHARYNGEAL Note: Methodology 40729) is Ronti Jagdeep Real-Time RT-PC R. The expected re sult or reference ra nge is NEGATIVE (No t Detected). For more information regarding COVID -19 testing to incl ude clinicalinforma tion , methodology detail, intende d use, FDA authorization andrecommended fact sheets for krissy ents or healthcare providers, see [facility] Announcement: SARS-CoV-2 (COVID-19) by N AAT at URL below (note,fact shee ts are provided by method given in report:https:// www. [employer]/cli pam ans/client-comm unic ations/ Alternatively, see downloadable PD F fact sheet at:https://[email or web address]. Admaxim.com/COVID-1 9-RT -PCR Note: Methodology is Ronit Jagdeep Real-Time RT-PC R. The expected re sult or reference ra nge is NEGATIVE (No t Detected). For more information regarding COVID -19 testing to incl ude clinicalinforma tion , methodology detail, intende d use, FDA authorization andrecommended fact sheets for krissy ents or healthcare providers, see [facility] Announcement: SARS-CoV-2 (COVID-19) by N AAT at URL below (note,fact shee ts are provided by method given in report:https:// www. [employer]/cli pam ans/client-comm unic ations/ Alternatively, see downloadable PD F fact sheet at:https://www. [employer].Needly/[email or web address]-1 9-RT -PCR UNLESS OTHERWISE INDICATED, ALL TESTING PERFORM [facility], [place] [address] 4 BODY TEAM MEMBER: ELIF MADISON M.D. [place] NUMBER [id number] CAP ACCREDITATION N O. [id number] SARS-CoV-2 (COVID-19) by RT-PCR (HIGH RISK)2021-09-09 00:00:00 Test Item Value Reference Range Interpretation Comments SARS-CoV-2 PRESUMPTIVE POSITIVE INTERPRETATION (test code = 30463) SOURCE (test code = NASOPHARYNGEAL 03280) SARS-CoV-2 (COVID-19) by RT-PCR (HIGH RISK)2021-09-09 00:00:00 Test Item Value Reference Range Interpretation Comments SARS-CoV-2 PRESUMPTIVE POSITIVE INTERPRETATION (test code = 22380) SOURCE (test code = NASOPHARYNGEAL 49984) BASIC METABOLIC PANEL (NA, K, CL, CO2, GLUCOSE, BUN, CREATININE, CA)2021-08-25 01:45:53 Test Item Value Reference Range Interpretation Comments NA (test code = 136 mmol/L 135-145 2155298446) K (test code = 4.1 mmol/L 3.5-5.0 2311550048) CL (test code = 102 mmol/L 98-108 7009679812) CO2 TOTAL (test code = 29 mmol/L 23-31 9804262139) AGAP (test code = 2-16 7527867381) BUN (test code = 9 mg/dL 7-23 5908260397) GLUCOSE (test code = 92 mg/dL 70-110 6189711424) CREATININE (test code = 0.54 mg/dL 0.50-1.04 0047510592) CALCIUM (test code = 8.5 mg/dL 8.6-10.6 L 4610000307) eGFR (test code = mL/min/1.73m2 6092195356) EMERALD (test code = EMERALD) Association of [...] tests). Lab Interpretation Abnormal (test code = 75287-0) [facility] WITH [id number] 01:34:37 Test Item Value Reference Range Interpretation Comments WBC (test code = See_Comment [Automated 6690-2) message] The sy stem which generated this [...] RDW-SD (test code = 41.3 fL 39.0-49.9 03690-2) RDW-CV (test code = 12.7 % 12.0-15.5 788-0) PLT (test code = See_Comment [Automated 777-3) message] The sy stem which generated this result transmitted reference range : 166 - 358 10*3/ ?L. The reference r lexy was not used to interpret this result as normal/abnormal . MPV (test code = 9.1 fL 9.5-12.9 L 26501-2) NRBC/100 WBC (test See_Comment [Automat ed code = 6981539603) message] The system which generated this result transmitted reference range : 0.0 - 10.0 /100 WBCs. The refer ence range was not u sed to interpret th is result as normal/abnormal . NRBC x10^3 (test code <0.01 See_Comment [Auto mated = 0517766499) message] The s ystem which generated this result transmitted reference range : 10*3/?L. The reference range was not used to interpret this result as normal/abnormal . GRAN MAT (NEUT) % 49.6 % (test code = 770-8) IMM GRAN % (test code 0.20 % = 3412122128) LYMPH % (test code = 39.5 % 736-9) MONO % (test code = 9.0 % 5905-5) EOS % (test code = 1.3 % 713-8) BASO % (test code = 0.4 % 706-2) GRAN MAT x10^3(ANC) 2.36 10*3/uL 1.88-7.09 (test code = 4515678903) IMM GRAN x10^3 (test <0.03 0.00-0.06 code = 0865941344) LYMPH x10^3 (test code 1.88 10*3/uL 1.32-3.29 = 731-0) MONO x10^3 (test code 0.43 10*3/uL 0.33-0.92 = 742-7) EOS x10^3 (test code = 0.06 10*3/uL 0.03-0.39 711-2) BASO x10^3 (test code <0.03 0.01-0.07 = 704-7) Lab Interpretation Abnormal (test code = 22205-2) [facility] [id number] 01:28:00 Test Item Value Reference Range Interpretation Comments POCT PREG (test code = 1605) negative On board controls acceptable with present C Line (test code = 3574) POCT PREG LOT # (test code = 3575) [id number] POCT PREG TEST DATE (test 09/28/2022 code = 3576) Lab Interpretation (test code = Normal 78858-2) [facility])2020-12-10 05:28:49 Test Item Value Reference Range Interpretation Comments AMPHET (test code = Negative Negative 6418484063) Cocaine Metabolite (test Negative Negative code = 6468936043) OPIATES (test code = Presumptive Positive Negative A 8651545030) THC (test code = Negative Negative 3807387002) EMERALD (test code = EMERALD) Urine Drug Cutoff Ranges Amphetamine: ? 1,000 ng/mLCocaine: ? 150 ng/mLOpiates: ? 300 ng/mLCannabinoids: ?50 ng/mL The results are to be used only for medical (i.e., treatment) purposes. Unconfirmed screening results must not be used for non-medical purposes (e.g., employment testing, legal testing). Lab Interpretation (test Abnormal code = 04735-2) [facility] CenterCT [facility] PEL[facility] WO [id number] 04:25:17No acute intra-abdominal or pelvic abnormality. No genitourinary stones. Complex right ovarian cyst,likely hemorrhagic cyst measuring 3.8 cm RL: 6200AFC: 79959 Patient name: LORNA GUERRADOB: 1995 25 years EXAMINATION: CT ABDOMEN PELVIS [...] - 12/09/2020 11:26 PM CDTPatient name: [facility] 1995 25 years EXAMINATION: CT ABDOMEN PELVISWO [...] likely hemorrhagic cyst measuring 3.8 cmRL: 6200AFC: 03210 [facility] CenterUrinalysis2021-04-14 02:12:28 Test Item Value Reference Range Interpretation Comments APPEARANCE (test code = Hazy Clear A 3756797812) COLOR (test code = Yellow Yellow 5360358080) PH (test code = 4.8-8.0 2324545594) SP GRAVITY (test code = 1.003-1.030 2447986877) GLU U QUAL (test code = Normal Normal 0253083928) BLOOD (test code = Negative Negative 4539420658) KETONES (test code = Negative Negative 5361655112) PROTEIN (test code = Negative Negative 2887-8) UROBILIN (test code = 4.0 mg/dL Normal A 9729413795) BILIRUBIN (test code = Negative Negative 1723660355) NITRITE (test code = Negative Negative 1320127649) LEUK HOLLEY (test code = Negative Negative 2926838713) RBC/HPF (test code = See_Comment H [Autom ated message] 7020542124) The system [employer] generated this result transmit héctor reference range : 0 - 3 HPF. The refe rence range was not u sed to interpret th is result as normal/abnormal . WBC/HPF (test code = See_Comment [Autom ated message] 9068853475) The system [employer] generated this result transmit héctor reference range : 0 - 5 HPF. The refe rence range was not u sed to interpret th is result as normal/abnormal . BACTERIA (test code = Negative Negative 5050176840) MUCOUS (test code = Slight Negative LPF A 6832340052) SQ EPITH (test code = HPF 7870654943) YEAST BUD (test code = See_Comment H [Aut omated message] 0179356579) The system [employer] generated this result transmit héctor reference range : <=1 HPF. The refere nce range was not u sed to interpret th is result as normal/abnormal . Lab Interpretation (test Abnormal code = 47751-3) [facility] CenterComplete Metabolic [id number] 02:09:13 Test Item Value Reference Range Interpretation Comments NA (test code = 137 mmol/L 135-145 1181768884) K (test code = 3.7 mmol/L 3.5-5.0 8434908854) CL (test code = 103 mmol/L 98-108 3847931488) CO2 TOTAL (test code 26 mmol/L 23-31 = 7665514191) AGAP (test code = 2-16 2049958586) BUN (test code = 12 mg/dL 7-23 7463708814) GLUCOSE (test code = 92 mg/dL 70-110 5101226630) CREATININE (test code 0.62 mg/dL 0.50-1.04 = 5990281080) TOTAL BILI (test code 0.4 mg/dL 0.1-1.1 = 0551681750) CALCIUM (test code = 8.9 mg/dL 8.6-10.6 0708620469) T PROTEIN (test code 7.1 g/dL 6.3-8.2 = 3363842913) ALBUMIN (test code = 4.4 g/dL 3.5-5.0 9884727303) ALK PHOS (test code = 79 U/L 34-122 6761703602) ALTv (test code = 16 U/L 5-35 1742-6) AST(SGOT) (test code 23 U/L 13-40 = 6628755680) eGFR (test code = mL/min/1.73m2 5289049072) EMERALD (test code = EMERALD) Association of [...] or urine or abnormalities in imaging tests). [facility] CenterLipase, [id number] 02:08:38 Test Item Value Reference Range Interpretation Comments LIPASE (test code = 2868427699) 53 U/L 0-220 Lab Interpretation (test code = Normal 94640-8) [facility] CenterCBC with [id number] 02:00:16 Test Item Value Reference Range Interpretation Comments WBC (test code = See_Comment [Automated message] 6690-2) The system [employer] generated this result transmitted ref erence range: 4.30 - 1 1.10 10*3/?L. The re ference range was not u sed to interpret this result as normal/abnor mal. RBC (test code = See_Comment [Automated message] 789-8) The system [employer] generated this result transmitted ref erence range: [...] RDW-SD (test code 42.6 fL 39.0-49.9 = 89101-1) RDW-CV (test code 13.2 % 12.0-15.5 = 788-0) PLT (test code = See_Comment [Automated message] 777-3) The system [employer] h generated this result transmitted ref erence range: 166 - 35 8 10*3/?L. The re ference range was not u sed to interpret this result as normal/abnor mal. MPV (test code = 9.5 fL 9.5-12.9 56813-8) NRBC/100 WBC (test See_Comment [Automat ed message] code = 7218322248) The syste m which generated this result transmitted ref erence range: 0.0 - 10 .0 /100 WBCs. The refer ence range was not u sed to interpret this result as normal/abnor mal. NRBC x10^3 (test <0.01 See_Comment [Automated message] code = 2674549872) The syste m which generated this result transmitted ref erence range: 10*3/?L. The reference range was not used to interpr et this result as normal/abnormal . GRAN MAT (NEUT) % 59.6 % (test code = 770-8) IMM GRAN % (test 0.30 % code = 4871229871) LYMPH % (test code 31.8 % = 736-9) MONO % (test code 6.4 % = 5905-5) EOS % (test code = 1.4 % 713-8) BASO % (test code 0.5 % = 706-2) GRAN MAT 5.15 10*3/uL 1.88-7.09 x10^3(ANC) (test code = 4626430741) IMM GRAN x10^3 0.03 10*3/uL 0.00-0.06 (test code = 4116192870) LYMPH x10^3 (test 2.75 10*3/uL 1.32-3.29 code = 731-0) MONO x10^3 (test 0.55 10*3/uL 0.33-0.92 code = 742-7) EOS x10^3 (test 0.12 10*3/uL 0.03-0.39 code = 711-2) BASO x10^3 (test 0.04 10*3/uL 0.01-0.07 code = 704-7) [facility] CenterPO[facility] [id number] 01:46:00 Test Item Value Reference Range Interpretation Comments POCT PREG (test code = 1605) negative On board controls acceptable with C present Line (test code = 3574) Lab Interpretation (test code = Normal 67866-2) [facility] CenterSARS-CoV-2 (COVID-19) by RT-PCR (HIGH RISK) 2020-12-03 00:00:00 Test Item Value Reference Range Interpretation Comments SARS-CoV-2 INTERPRETATION (test NEGATIVE code = 16671) SOURCE (test code = 06241) NOT SPECIFIED SARS-CoV-2 (COVID-19) by RT-PCR (HIGH RISK)2020-12-03 00:00:00 Test Item Value Reference Range Interpretation Comments SARS-CoV-2 INTERPRETATION (test NEGATIVE code = 74660) SOURCE (test code = 63699) NOT SPECIFIED PAP TEST, THINPREP, [id number] 00:00:00 Test Item Value Reference Range Interpretation Comments SOURCE: (test code = Cervical/Endocervical 8001) SLIDES: (test code = 1 8011) LMP: (test code = 03/16/17 8021) SPECIMEN ADEQUACY: (NOTE) (test code = 40543) INTERPRETATION: (test NO EPITHELIAL code = 85785) ABNORMALITY SEE BELOW PROCESS SAFETY ENGINEERING TECHNOLOGIST: Claudia Rolle CT(ASCP) (test code = 8101) QC TECHNOLOGIST: Jg Humphrey, (test code = 8111) CT(ASCP)IAC LOCATION: (test code (NOTE) = 12836) CPT: (test code = (NOTE) 8140) PAP TEST, THINPREP, [id number] 00:00:00 Test Item Value Reference Range Interpretation Comments SOURCE: (test code = Cervical/Endocervical 8001) SLIDES: (test code = 1 8011) LMP: (test code = 03/16/17 8021) SPECIMEN ADEQUACY: (NOTE) (test code = 62969) INTERPRETATION: (test NO EPITHELIAL code = 38834) ABNORMALITY SEE BELOW PROCESS SAFETY ENGINEERING TECHNOLOGIST: Claudia Rolle, CT(ASCP) (test code = 8101) QC TECHNOLOGIST: Jg Humphrey, (test code = 8111) CT(ASCP)IAC LOCATION: (test code (NOTE) = 25620) CPT: (test code = (NOTE) 8140) GC AND CHLAMYDIA AMPLIFIED, [id number] 00:00:00 Test Item Value Reference Range Interpretation Comments GONORRHEA, TMA (test code = 91050) NEGATIVE CHLAMYDIA, TMA (test code = 21865) NEGATIVE GC AND CHLAMYDIA AMPLIFIED, [id number] 00:00:00 Test Item Value Reference Range Interpretation Comments GONORRHEA, TMA (test code = 51684) NEGATIVE CHLAMYDIA, TMA (test code = 85971) NEGATIVE HIV AB/AG COMBO RFLX [id number] 00:00:00 Test Item Value Reference Range Interpretation Comments HIV 1/2 4TH GEN, RFLX CONF (test NON-REACTIVE code = 3514) HIV AB/AG COMBO RFLX [id number] 00:00:00 Test Item Value Reference Range Interpretation Comments HIV 1/2 4TH GEN, RFLX CONF (test NON-REACTIVE code = 3514) [id number] 00:00:00 Test Item Value Reference Range Interpretation Comments RPR RESULT (test code = NON-REACTIVE 3501) RPR TITER (test code = 3500) NOT INDIC. TITER [id number] 00:00:00 Test Item Value Reference Range Interpretation Comments RPR RESULT (test code = NON-REACTIVE 3501) RPR TITER (test code = 3500) NOT INDIC. TITER [id number] 00:00:00 Test Item Value Reference Range Interpretation Comments RPR RESULT (test code = NON-REACTIVE 3501) RPR TITER (test code = 3500) NOT INDIC. TITER ACUTE HEPATITIS [id number] 00:00:00 Test Item Value Reference Range Interpretation Comments HEPATITIS A IgM (test code = NON-REACTIVE 87176) HEPATITIS B CORE IgM (test code NON-REACTIVE = 4644) HEPATITIS B SURF AG (test code = NON-REACTIVE 2739) HEPATITIS C ANTIBODY (test code NON-REACTIVE = 4675) INTERPRETATION HEPATITIS A: (NOTE) (test code = 2552) INTERPRETATION HEPATITIS B: (NOTE) (test code = 41763) INTERPRETATION HEPATITIS C: (NOTE) (test code = 62042) ACUTE HEPATITIS [id number] 00:00:00 Test Item Value Reference Range Interpretation Comments HEPATITIS A IgM (test code = NON-REACTIVE 53485) HEPATITIS B CORE IgM (test code NON-REACTIVE = 4644) HEPATITIS B SURF AG (test code = NON-REACTIVE 2739) HEPATITIS C ANTIBODY (test code NON-REACTIVE = 4675) INTERPRETATION HEPATITIS A: (NOTE) (test code = 2552) INTERPRETATION HEPATITIS B: (NOTE) (test code = 80983) INTERPRETATION HEPATITIS C: (NOTE) (test code = 46260)"
--- NOTE | 2023-07-04 12:36 | EDPHYS ---
Physician Documentation [facility] Name: Lilia Nunez Age: 28 yrs Sex: Female : 1995 Arrival Date: 07/04/2023 Time: 12:13 Bed IW4 Private MD: ED Physician Arnold Nunez HPI: 07/04 12:34 This 28 yrs old Female presents to ER via Ambulatory with complaints of rn Toothache. 12:34 The patient presents with pain. The problem is located in the Left upper second molar. rn Onset: The symptoms/episode began/occurred at an unknown time. Duration: The symptoms are intermittent. Modifying factors: The symptoms are alleviated by nothing, the symptoms are aggravated by nothing. Severity of symptoms: At their worst the symptoms were moderate, in the emergency department the symptoms have improved. The patient has experienced similar episodes in the past. Patient reports about 3 years of intermittent pain to this tooth, left upper second molar, no injury, has known cavity, already has scheduled root canal or procedure next week. Here with increased pain and requesting antibiotics and pain medication. No fever. No trouble swallowing no trouble breathing.. 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 - Family history:: not pertinent. - Social history:: Smoking status: Patient denies any tobacco usage or history of. - Hospitalizations: : No recent hospitalization is reported. ROS: 12:34 Constitutional: Negative for fever, chills, and weight loss, ENT: Positive for dental rn pain Neck: Negative for injury, pain, and swelling, Exam: 12:34 Constitutional: This is a well developed, well nourished patient who is awake, alert, rn and in no acute distress. ENT: Left upper second premolar with small to moderate cavity noted. No intraoral swelling or erythema. No fluctuance. No buccal swelling. Vital Signs: 12:31 BP 113 / 69; Pulse 94; Resp 16; Temp 98.6; Pulse Ox 99% on R/A; Pain 8/10; iw 12:31 Pain Scale: Adult iw MDM: 12:16 Patient medically screened. rn 12:34 Differential diagnosis: dental caries, dental abscess. Data reviewed: vital signs, rn nurses notes, and as a result, I will discharge patient. Counseling: I had a detailed discussion with the patient and/or guardian regarding the historical points, exam findings, and any diagnostic results supporting the discharge/admit diagnosis, the need for outpatient follow up, to return to the emergency department if symptoms worsen or persist or if there are any questions or concerns that arise at home. Special discussion: I discussed with the patient/guardian in detail that at this point there is no indication for admission to the hospital. It is understood, however, that if the symptoms persist or worsen the patient needs to return immediately for re-evaluation. Based on the history and exam findings, there is no indication for further emergent testing or inpatient evaluation. I discussed with the patient/guardian the need to see a dentist for further evaluation of the symptoms. Administered Medications: No medications were administered Disposition Summary: 07/04/23 12:36 Discharge Ordered Notes: Location: Home rn Problem: an ongoing problem rn Symptoms: are unchanged rn Condition: Stable rn Diagnosis - Dental caries, unspecified rn Followup: rn - With: Private Physician - When: As needed - Reason: Recheck today's complaints, Re-evaluation by your physician Discharge Instructions: - Discharge Summary Sheet rn - Dental Caries, Adult rn Forms: - Medication Reconciliation Form rn - Thank You Letter rn - Antibiotic international guest coordinator - Prescription Opioid Use rn - Patient Portal Instructions rn - Leadership Thank You Letter rn - Work release form ll1 Prescriptions: - Clindamycin HCl 300 mg Oral Capsule - take 1 capsule ORAL route every 6 hours for 10 days; 40 capsule; Refills: 0, rn Product Selection Permitted - Tramadol 50 mg Oral Tablet - take 1 tablet ORAL route every 8 hours as needed; 12 tablet; Refills: 0, rn Product Selection Permitted Signatures: Marilyn Lovett RN RN Arnold Mccarty MD MD rn Lewis, Lynsay, RN RN ll1
--- NOTE | 2023-07-04 12:36 | ER ---
Nurse's Notes [facility] Name: Lilia Nunez Age: 28 yrs Sex: Female : 1995 Arrival Date: 07/04/2023 Time: 12:13 Bed IW4 Private MD: Diagnosis: Dental caries, unspecified Presentation: 07/04 12:31 Chief complaint: Patient states: her tooth has been hurting her this morning, is due iw for root canal next week. Coronavirus screen: At this time, the client does not indicate any symptoms associated with coronavirus-19. Ebola Screen: Patient negative for fever greater than or equal to 101.5 degrees Fahrenheit, and additional compatible Ebola Virus Disease symptoms Patient denies exposure to infectious person. Patient denies travel to an Ebola-affected area in the 21 days before illness onset. No symptoms or risks identified at this time. Initial Sepsis Screen: Does the patient meet any 2 criteria? No. Patient's initial sepsis screen is negative. Does the patient have a suspected source of infection? No. Patient's initial sepsis screen is negative. Risk Assessment: Do you want to hurt yourself or someone else? Patient reports no desire to harm self or others. Onset of symptoms was July 04, 2023. 12:31 Method Of Arrival: Ambulatory iw 12:31 Acuity: TERRY 4 iw Triage Assessment: 12:49 General: Appears uncomfortable, Behavior is calm, cooperative, appropriate for age. ll1 Pain: Complains of pain in left cheek Quality of pain is described as aching, throbbing. EENT: Reports pain in left cheek. 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 - Family history:: not pertinent. - Social history:: Smoking status: Patient denies any tobacco usage or history of. - Hospitalizations: : No recent hospitalization is reported. Screenin:35 [facility] ED Fall Risk Assessment (Adult) History of falling in the last 3 months, iw including since admission Score/Fall Risk Level 0 - 2 = Low Risk. 12:50 Abuse screen: Denies threats or abuse. Nutritional screening: No deficits noted. ll1 Tuberculosis screening: No symptoms or risk factors identified. Assessment: 12:35 General: Appears in no apparent distress. Pain: Complains of pain in left cheek. Vital Signs: 12:31 BP 113 / 69; Pulse 94; Resp 16; Temp 98.6; Pulse Ox 99% on R/A; Pain 8/10; iw 12:31 Pain Scale: Adult ED Course: 12:15 Patient arrived in ED. im 12:16 Arnold Nunez MD is Attending Physician. rn 12:33 Triage completed. iw 12:50 Arm band placed on. ll1 12:51 Patient has correct armband on for positive identification. Call light in reach. Side ll1 rails up X 1. Provided Education on: n/a. 12:51 No provider procedures requiring assistance completed. Patient did not have IV access ll1 during this emergency room visit. Administered Medications: No medications were administered Medication: 12:51 VIS not applicable for this client. ll1 Outcome: 12:36 Discharge ordered by MD. rn 12:51 Discharged to home ambulatory, ll1 12:51 Condition: stable 12:51 Discharge instructions given to patient, Instructed on discharge instructions, follow up and referral plans. medication usage, Demonstrated understanding of instructions, follow-up care, medications, Prescriptions given X 2, 12:52 Patient left the ED. ll1 Signatures: Marilyn Lovett RN LYNETTE Arnold Nunez MD MD rn Lewis, Lynsay, RN RN ll1 Kathy Macedo Corrections: (The following items were deleted from the chart) 12:35 12:31 Pulse 94bpm; Resp 16bpm; Pulse Ox 99% RA; Temp 98.6F; iw iw
[2023-07-04 13:05] VITALS: BP 113/69; TEMP 98.6; O2SAT 99
== END 2023-07-04 12:52 | disposition home or self-care (01) ==
LOC: ER 12:13
DX: K02.9 Dental caries, unspecified (principal)
CPT/HCPCS: 99283

== ENCOUNTER 2023-12-23 11:13 | Emergency (ER) | payer SELFPAY ==
--- OUTSIDE RECORDS SUMMARY | 2023-12-23 11:16 | XMS REPORT | Continuity of Care Document ---
Author Name Unknown Address [address] [facility] [address] [place] [address] [facility] thconnect Address [address] [place] [address] Care Team Providers Care Prepress Technician Name Role Phone Dena Perry Primary Care Physician SREE LOPEZ Attending Clinician Unavailable Sree Lopez MD Attending Clinician [phone] QIANA VALDEZ Attending Clinician Unavailable Qiana Kinney Attending Clinician Elliot Fletcher Attending Clinician [phone] ELLIOT FRASER Attending Clinician Unavailable Amber Cardozo NP Attending Clinician [phone] Payers Payer Name Policy Type Policy Number Effective Date Expirati on Date Source MEDICAID PENDING PENDING 2021 00:00:00 Problems Condition Name Condition Details Condition Category Status Onset Date Resolution Date Last Treatment Date Treating Clinician Comments Source No known active problems No known active problems Disease [facility] Allergies, Adverse Reactions, Alerts Allergy Name Allergy Type Status Severity Reaction(s) Onset Date Inactive Date Treating Clinician Comments Source NO KNOWN ALLERGIE S Drug Class Active [facility] Social History Social Habit Start Date Stop Date Quantity Comments Source History of tobacco use Cigarette Smoker [facility] Exposure to SARS-CoV-2 (event) 2022-08-31 00:00:00 2022-09-10 12:55:00 Not sure [facility] Cigarettes smoked current (pack per day) - Reported 2017-07-12 00:00:00 2017-07-12 00:00:00 [facility] Tobacco use and exposure 2017-07-12 00:00:00 2017-07-12 00:00:00 Smokeless tobacco non-user [facility] Sex Assigned At 1995 00:00:00 1995 00:00:00 [facility] Smoking Status Start Date Stop Date Source Smokes tobacco daily 2017-07-12 00:00:00 [facility] Medications Ordered Medication Name Filled Medication Name Start Date Stop Date Current Medication? Ordering Clinician Indication Dosage Frequency Signature (SIG) Comments Components Source LORazepam (ATIVAN) tablet 1 mg 09-10 19:30: 00 09-10 19:43 :00 No 1mg 1 mg, Oral, ONCE, 1 dose, On Tue09/10/22 at 1330, VIVIEN [facility] hydrOXYzine (VISTARIL) 25 mg capsule 09-10 00:00: 00 Yes [id number] 25mg Take 1 capsule by mouth 2 (two) times daily as needed for Anxiety. [facility] Dose Unknown 0 6-02 00:00: 00 No Dose Unknown 0 6-02 00:00: 00 No Dose Unknown 0 4-17 00:00: 00 No Dose Unknown 0 4-17 00:00: 00 No Dose Unknown 0 3-12 00:00: 00 No Dose Unknown 2021-0 3-12 00:00: 00 No Dose Unknown 0 3-11 00:00: 00 No Dose Unknown 2021-0 3-11 00:00: 00 No Dose Unknown 2021-0 3-10 00:00: 00 No Dose Unknown 2021-0 3-10 00:00: 00 No Dose Unknown 2021-0 3-09 00:00: 00 No Dose Unknown 0 3-09 00:00: 00 No cefTRIAXone (ROCEPHIN) injection 500 mg 2020-08 03:45: 00 08-25 02:59 :00 No 500mg 500 mg, Intramuscu lar, ONCE, 1 dose, On Tue08/24/21 at 2145, VIVIEN
Re ason for Anti-Infec tive: Documented Infection< br>Documen héctor Infection Site: Pelvic
Duration of Therapy: 7 days [facility] NaCl 0.9% (NS) bolus infusion 1,000 mL 2020-08 02:00: 00 08-25 02:45 :00 No 1000mL at 999 mL/hr, 1,000 mL, IV Infusion, ONCE, 1 dose, On Tue08/24/21 at 2000, VIVIEN [facility] doxycycline hyclate 100 mg capsule 2020-08 00:00: 00 09-01 05:59 :00 No [id number] 100mg Take 1 capsule by mouth 2 (two) times daily for 7 days. [facility] traMADoL (ULTRAM) tablet 50 mg 03-26 22:15: 00 03-26 21:15 :00 No 50mg 50 mg, Oral, ONCE, 1 dose, Nadia 03/26/21 at 1715, Routine [facility] traMADoL 50 mg tablet 03-26 00:00: 00 Yes [id number] 50mg Take 1 tablet by mouth every 6 (six) hours as needed for Pain (scale 7-10). Indication s: acute pain [facility] clindamycin 150 mg capsule 03-26 00:00: 00 04-06 04:59 :00 No [id number] 450mg Take 3 capsules by mouth 3 (three) times daily for 10 days. [facility] dicyclomine (BENTYL) injection 20 mg 12-10 13:00: 00 Yes 20mg 20 mg, Intramuscu lar, QID, First dose on Tue12/10/20 at 0800, Until Discontinu ed, Routine [facility] ketorolac (TORADOL) injection 30 mg 2021-0 4-14 04:45: 00 12-10 03:51 :00 No 30mg 30 mg, Slow IV Push, ONCE, 1 dose, 12/09/20 at 2345, Routine
membership assistant approving Restricted medication : AMBER CARDOZO [facility] dicyclomine 20 mg tablet 414 00:00: 00 03-26 00:00 :00 No [id number] 20mg Take 1 tablet by mouth 4 (four) times daily as needed for Abdominal pain. [facility] indomethaci n 50 mg capsule 12-10 00:00: 00 12-18 04:59 :00 No [id number] 50mg Take 1 capsule by mouth 2 (two) times daily with meals for 7 days. [facility] Flonase Allergy Relief 50 mcg/actuati on nasal spray,suspe nsion 10-31 00:00: 00 No 12mcg/a ctuatio n Bromfed DM 2 mg-30 mg-10 mg/5 mL oral syrup 05 00:00: 00 No 75mg/5 mL HYDROcodone -acetaminop hen (NORCO 5) 5-325 mg tablet 1 tablet 2019-08 22:00: 00 06-16 21:06 :00 No 1{tbl} 1 tablet, Oral, ONCE, 1 dose, 06/16/20 at 1700, VIVIEN [facility] ketorolac (TORADOL) injection 60 mg 2019-08 22:00: 00 06-16 21:07 :00 No 60mg 60 mg, Intramuscu lar, ONCE, 1 dose, 06/16/20 at 1700, VIVIEN
Fa culty member approving Restricted medication : EMERGENCY ROOM, [facility] penicillin v potassium 500 mg tablet 2019-08 00:00: 00 06-24 04:59 :00 No [id number] 500mg Take 1 tablet by mouth 4 (four) times daily for 7 days. [facility] acetaminoph en-codeine 300-30 mg tablet 2019-08 00:00: 00 06-24 04:59 :00 No [id number] 1{tbl} Take 1 tablet by mouth every 6 (six) hours as needed for Pain (scale 7-10) for up to 7 days. Indication s: acute pain [facility] codeine-gua ifenesin 10-100 mg/5 mL solution 2016-08 00:00: 00 03-26 00:00 :00 No 5mL Take 5 mL by mouth every 6 (six) hours as needed for Cough. [facility] ondansetron 4 mg disintegrat ing tablet 2016-08 00:00: 00 03-26 00:00 :00 No 4mg Take 1 tablet by mouth every 8 (eight) hours as needed for Nausea and Vomiting (N/V). [facility] ibuprofen 800 mg tablet 12-29 00:00: 00 No 1mg Vital Signs Vital Name Observation Time Observation Value Comments S ource Systolic blood pressure 2022-09-10 18:57:00 180 mm[Hg] [facility] Diastolic blood pressure 2022-09-10 18:57:00 115 mm[Hg] [facility] Heart rate 2022-09-10 18:57:00 90 /min [facility] acute hospital Body temperature 2022-09-10 18:57:00 36.83 Ariane [facility] Respiratory rate 2022-09-10 18:57:00 20 /min [facility] Body height 2022-09-10 18:57:00 157.5 cm [facility] Body weight 2022-09-10 18:57:00 79.379 kg [facility] BMI 2022-09-10 18:57:00 32.01 kg/m2 [facility] Oxygen saturation in Arterial blood by Pulse oximetry 2022-09-10 18:57:00 99 /min [facility] Systolic blood pressure 2021-08-25 02:00:00 120 mm[Hg] [facility] Diastolic blood pressure 2021-08-25 02:00:00 82 mm[Hg] [facility] Heart rate 2021-08-25 02:00:00 82 /min [facility] Respiratory rate 2021-08-25 02:00:00 15 /min [facility] Oxygen saturation in Arterial blood by Pulse oximetry 2021-08-25 02:00:00 100 /min [facility] Body temperature 2021-08-25 00:45:00 37.17 Ariane [facility] Body weight 2021-08-25 00:45:00 86.183 kg [facility] BMI 2021-08-25 00:45:00 34.75 kg/m2 [facility] Systolic blood pressure 2021 20:13:00 108 mm[Hg] [facility] Diastolic blood pressure 2021 20:13:00 86 mm[Hg] [facility] Heart rate 2021 20:13:00 90 /min [facility] Body temperature 2021 20:13:00 37.5 Ariane [facility] Respiratory rate 2021 20:13:00 18 /min [facility] Body height 2021 20:13:00 157.5 cm [facility] Body weight 2021 20:13:00 88.905 kg [facility] BMI 2021 20:13:00 35.85 kg/m2 [facility] Oxygen saturation in Arterial blood by Pulse oximetry 2021 20:13:00 100 /min [facility] Systolic blood pressure 2020-12-10 00:00:00 120 mm[Hg] [facility] Diastolic blood pressure 2020-12-10 00:00:00 74 mm[Hg] [facility] Heart rate 2020-12-10 00:00:00 71 /min [facility] Body temperature 2020-12-10 00:00:00 37.5 Ariane [facility] Respiratory rate 2020-12-10 00:00:00 18 /min [facility] Body weight 2020-12-10 00:00:00 86.183 kg [facility] BMI 2020-12-10 00:00:00 34.75 kg/m2 [facility] Oxygen saturation in Arterial blood by Pulse oximetry 2020-12-10 00:00:00 97 /min [facility] Systolic blood pressure 2020-12-10 00:00:00 120 mm[Hg] [facility] Diastolic blood pressure 2020-12-10 00:00:00 74 mm[Hg] [facility] Heart rate 2020-12-10 00:00:00 71 /min [facility] Body temperature 2020-12-10 00:00:00 37.5 Ariane [facility] Respiratory rate 2020-12-10 00:00:00 18 /min [facility] Body weight 2020-12-10 00:00:00 86.183 kg [facility] BMI 2020-12-10 00:00:00 34.75 kg/m2 [facility] Oxygen saturation in Arterial blood by Pulse oximetry 2020-12-10 00:00:00 97 /min [facility] Systolic blood pressure 2020-06-16 20:21:00 132 mm[Hg] [facility] Diastolic blood pressure 2020-06-16 20:21:00 74 mm[Hg] [facility] Heart rate 2020-06-16 20:21:00 82 /min [facility] Body temperature 2020-06-16 20:21:00 36.72 Ariane [facility] Respiratory rate 2020-06-16 20:21:00 20 /min [facility] Body height 2020-06-16 20:21:00 157.5 cm [facility] Body weight 2020-06-16 20:21:00 86.183 kg [facility] BMI 2020-06-16 20:21:00 34.75 kg/m2 [facility] Oxygen saturation in Arterial blood by Pulse oximetry 2020-06-16 20:21:00 100 /min [facility] Systolic blood pressure 2020-06-16 20:21:00 132 mm[Hg] [facility] Diastolic blood pressure 2020-06-16 20:21:00 74 mm[Hg] [facility] Heart rate 2020-06-16 20:21:00 82 /[facility] Body temperature 2020-06-16 20:21:00 36.72 Ariane [facility] Respiratory rate 2020-06-16 20:21:00 20 /min [facility] Body height 2020-06-16 20:21:00 157.5 cm [facility] Body weight 2020-06-16 20:21:00 86.183 kg [facility] BMI 2020-06-16 20:21:00 34.75 kg/m2 [facility] Oxygen saturation in Arterial blood by Pulse oximetry 2020-06-16 20:21:00 100 /min [place] [facility] BP Systolic 2021-11-04 11:02:00 108 mm[Hg] BP [...] Procedure Date / Time Performed Performing Clinician Source POCT TEST 2022-09-10 19:42:00 Sree Lopez [facility] URINE DRUG (IMMUNOASSAY) - COMPREHENSIVE DRUG SCREEN 2022-09-10 19:41:00 Sree Lopez [facility] URINALYSIS 2022-09-10 19:41:00 Sree Lopez [facility] CONSENT/REFUSAL FOR DIAGNOSIS AND TREATMENT 2022-09-10 18:46:57 Doctor Unassigned, [place] [facility] POCT TEST 2021-08-25 01:28:00 Aviva Valdez [facility] BASIC METABOLIC PANEL (NA, K, CL, CO2, GLUCOSE, BUN, CREATININE, CA) 2021-08-25 01:26:00 Qiana Valdez [facility] CBC WITH DIFF 2021-08-25 01:26:00 Qiana Valdez [facility] URINALYSIS 2021-08-25 01:26:00 Qiana Valdez [facility] CONSENT/REFUSAL FOR DIAGNOSIS AND TREATMENT 2021-08-25 00:39:27 Doctor Unassigned, [place] [facility] CONSENT/REFUSAL FOR DIAGNOSIS AND TREATMENT 2021 20:08:24 Doctor Unassigned, [place] [facility] CT ABDOMEN PELVIS WO CONTRAST 2020-12-10 04:09:17 Amber Cardozo [facility] URINE DRUG (IMMUNOASSAY) - 4 ER PANEL 2020-12-10 03:57:00 Amber Cardozo [facility] POCT TEST 2020-12-10 01:46:00 Johnnie Olivarez [facility] LIPASE 2020-12-10 01:44:00 Johnnie Olivarez [facility] COMP. METABOLIC PANEL ([id number]) 2020-12-10 01:44:00 Johnnie Olivarez [facility] CBC WITH DIFF 2020-12-10 01:44:00 Johnnie Olivarez [facility] URINALYSIS 2020-12-10 01:44:00 Johnnie Olivarez [facility] NOTICE OF PRIVACY PRACTICES 2020-12-09 23:56:35 Doctor Unassigned, [place] [facility] CONSENT/REFUSAL FOR DIAGNOSIS AND TREATMENT 2020-12-09 23:55:46 Doctor Unassigned, [place] [facility] CONSENT/REFUSAL FOR DIAGNOSIS AND TREATMENT 2020-06-16 20:19:26 Doctor Unassigned, [place] [facility] Plan of Care Planned Activity Planned Date Details Comments Source Goal Plan of Care Note [code = 77469-9] Goal Plan of Care Note [code = 69825-5] Goal Plan of Care Note [code = 55631-6] Goal Plan of Care Note [code = 99049-2] Goal Plan of Care Note [code = 55186-1] Goal Plan of Care Note [code = 47187-0] Goal Plan of Care Note [code = 83588-4] Goal Plan of Care Note [code = 73891-0] Goal Plan of Care Note [code = 16570-2] Goal Plan of Care Note [code = 23960-6] Goal Plan of Care Note [code = 65380-4] Goal Plan of Care Note [code = 94621-9] Goal Plan of Care Note [code = 29779-7] Goal Plan of Care Note [code = 23617-8] Goal Plan of Care Note [code = 31512-3] Goal Plan of Care Note [code = 05810-5] Goal Plan of Care Note [code = 44504-9] Goal Plan of Care Note [code = 23616-6] Goal Plan of Care Note [code = 05468-6] Goal Plan of Care Note [code = 49396-0] Goal Plan of Care Note [code = 17293-2] Goal Plan of Care Note [code = 83561-5] Goal Plan of Care Note [code = 47792-8] Goal Plan of Care Note [code = 43557-9] Goal Plan of Care Note [code = 46987-8] Goal Plan of Care Note [code = 05535-8] Encounters Start Date/Time End Date/Time Encounter Type Admission Type Attending [facility] Facility Care Department Encounter ID Source 2022-09-11 22:37:13 Outpatient [facility] ER [id number] [facility] 2023-03-15 08:16:23 2023-03-15 08:16:23 Outpatient [facility] 18 Mariusz Dietrich 2022-09-10 12:58:00 2022-09-10 16:23:00 Emergency X SREE LOPEZ [facility] ERT [id number] [facility] 2022-09-10 12:58:00 2022-09-10 16:23:00 Emergency Sree Lopez [facility] [id number] [facility] 2022-04-02 00:00:00 2022-04-02 00:00:00 Outpatient Visit [id number] 2021-08-24 18:46:00 2021-08-24 21:11:00 Emergency X QIANA VALDEZ [facility] ERT [id number] [facility] 2021-08-24 18:46:00 2021-08-24 21:11:00 Emergency Qiana Valdez [facility] [id number] [id number] [facility] 2021 15:14:00 2021 16:17:00 Emergency Elliot Fraser [facility] [id number] [id number] [facility] 2021 15:08:00 2021 15:08:00 Emergency X ELLIOT FRASER [facility] ERT [id number] [facility] 2020-12-09 19:02:00 2020-12-10 01:46:00 Emergency Amber Cardozo [facility] [id number] [id number] [id number] [facility] 2020-12-09 19:02:00 2020-12-10 01:46:00 Emergency Amber Cardozo [facility] [id number] 4.2.7.2.686 [id number] 2020-12-09 18:54:00 2020-12-09 18:54:00 Emergency X [facility] ERT [id number] [facility] 2020-06-16 15:24:00 2020-06-16 17:00:00 Emergency Qiana Valdez [facility] [id number] [id number] [id number] [facility] 2020-06-16 15:24:00 2020-06-16 17:00:00 Emergency Qiana Valdez [facility] [id number] [id number] [id number] 2020-06-16 15:18:00 2020-06-16 15:18:00 Emergency X [place] ERT [id number] [facility] 2020-01-27 14:14:00 2020-01-27 14:14:00 Emergency X [facility] ERT [id number] [facility] Results Test Description Test Time Test Comments Results Result Co mments Source [facility], THIN[facility], [id number] 09:47:06 * Test Item Value Reference Range Interpretation Comme nts SOURCE: (test code = 8001) Cervical/Endoce rvical SLIDES: (test code = 8011) 1 LMP: (test code = 8021) 10/27/2021 SPECIMEN ADEQUACY: (test code = 31189) (NOTE) Satisfactory for evaluation. Endocervical cells/transformation zone component present. INTERPRETATION: (test code = 13637) NILM/NO EPITH. ABNORMALITY;SEE BELOW --- - NEGATIVE FOR INTRAEPITHELIAL LESION OR MALIGNANCY (NILM) ---- WINE CELLAR STOCK CLERK : (test code = 8101) Nery Macedo LOCATION: (test code = 18961) (NOTE) Specimens proces sed and interpreted at [facility], [address] [place] [address], , CLIA: [id number] CPT: (test code = 8140) (NOTE) [address] UNLESS OTH ERWISE INDICATED, COMPUTER AIDED AND WINE CELLAR STOCK CLERK SCREENING PERFORMED. The Pap test is a screening test with an inherent, but low probability of error. Your patient should be reminded to consult you immediately if she experiences any suspicious signs or symptoms, regardless of her Pap test result. An alternate report format containing images or consolidated prior Pap history is available as applicable. UNLESS OTHERWISE INDICATED, ALL TESTING PERFORMED [facility] [address] [place] [address] TELEPHONE SURVEYOR: ELIF MADISON M.D. CLIA NUMBER [id number] [facility] [place]. [id number] PAP TEST, THINPREP, [id number] 00:00:00* Test Item Value Reference Range Interpretation Comme nts SOURCE: (test code = 8001) Cervical/Endocervical SLIDES: (test code = 8011) 1 LMP: (test code = 8021) 10/27/2021 SPECIMEN ADEQUACY: (test code = 07247) (NOTE) INTERPRETATION: (test code = 20635) NILM/NO EPITH. ABNORMALITY;SEE BELOW WINE CELLAR STOCK CLERK: (test code = 8101) Nery Macedo LOCATION: (test code = 43799) (NOTE) CPT: (test code = 8140) (NOTE) PAP TEST, THINPREP, [id number] 00:00:00* Test Item Value Reference Range Interpretation Comme nts SOURCE: (test code = 8001) Cervical/Endocervical SLIDES: (test code = 8011) 1 LMP: (test code = 8021) 10/27/2021 SPECIMEN ADEQUACY: (test code = 49265) (NOTE) INTERPRETATION: (test code = 11981) NILM/NO EPITH. ABNORMALITY;SEE BELOW WINE CELLAR STOCK CLERK: (test code = 8101) Nery Macedo LOCATION: (test code = 71509) (NOTE) CPT: (test code = 8140) (NOTE) VAGINAL PATHOGENS DNA [id number] 14:50:28* Test Item Value Reference Range Interpretation Comme nts DAMIR SPECIES (test code = 54714) NEGATIVE NEGATIVE G. VAGINALIS (test code = 82268) NEGATIVE NEGATIVE T. VAGINALIS (test code = 29360) NEGATIVE NEGATIVE UNLESS OTHERWISE INDICATED, ALL TESTING PERFORMED [facility] [address] [place] [address] TELEPHONE SURVEYOR: ELIF MADISON M.D. [facility] NUMBER [id number] [facility] [place]. [id number] 06:56:09* Test Item Value Reference Range Interpretation Comme nts RPR RESULT (test code = 3501) NON-REACTIVE NON-REACTIVE RPR TITER (test code = 3500) NOT INDIC. TITER NOT INDIC. HEPATITIS PANEL, [id number] 05:54:17* Test Item Value Reference Range Interpretation Comme nts HEPATITIS A IgM (test code = 89090) NON-REACTIVE NON-REACTIVE HEPATITIS B CORE IgM (test code = 4644) NON-REACTIVE NON-REACTIVE HEPATITIS B SURF AG (test code = 2739) NON-REACTIVE NON-REACTIVE HEPATITIS C ANTIBODY (test code = 4675) NON-REACTIVE NON-REACTIVE INTERPRETATION HEPATITIS A: (test code = 2552) (NOTE) Hepatitis A serology shows no evidence of acute hepatitis A. INTERPRETATION HEPATITIS B: (test code = 86843) (NOTE) Hepatitis B serology shows no evidence of acute hepatitis B andno indication of exposure to hepatitis B virus in the previous jie eight months. INTERPRETATION HEPATITIS C: (test code = 68867) (NOTE) Hepatitis C serology shows no evidence of exposure to hepatitisC virus at this time. It can take up to 12 months after exposure tothe hepatitis C virus for antibodies to become detectable in the blood in certain patients. HIV 1/2 4TH GEN, RFLX [id number] 05:54:17* Test Item Value Reference Range Interpretation Comme nts HIV 1/2 4TH GEN, RFLX CONF ( test code = 3514) NON-REACTIVE NON-REACTIVE HIV AB/AG COMBO RFLX [id number] 00:00:00* Test Item Value Reference Range Interpretation Comme nts HIV 1/2 4TH GEN, RFLX CONF ( test code = 3514) NON-REACTIVE HIV AB/AG COMBO RFLX [id number] 00:00:00* Test Item Value Reference Range Interpretation Comme nts HIV 1/2 4TH GEN, RFLX CONF ( test code = 3514) NON-REACTIVE ACUTE HEPATITIS [id number] 00:00:00* Test Item Value Reference Range Interpretation Comme nts HEPATITIS A IgM (test code = 06044) NON-REACTIVE HEPATITIS B CORE IgM (test c ode = 4644) NON-REACTIVE HEPATITIS B SURF AG (test co de = 2739) NON-REACTIVE HEPATITIS C ANTIBODY (test c ode = 4675) NON-REACTIVE INTERPRETATION HEPATITIS A: (test code = 2552) (NOTE) INTERPRETATION HEPATITIS B: (test code = 21420) (NOTE) INTERPRETATION HEPATITIS C: (test code = 46666) (NOTE) ACUTE HEPATITIS [id number] 00:00:00* Test Item Value Reference Range Interpretation Comme nts HEPATITIS A IgM (test code = 41224) NON-REACTIVE HEPATITIS B CORE IgM (test c ode = 4644) NON-REACTIVE HEPATITIS B SURF AG (test co de = 2739) NON-REACTIVE HEPATITIS C ANTIBODY (test c ode = 4675) NON-REACTIVE INTERPRETATION HEPATITIS A: (test code = 2552) (NOTE) INTERPRETATION HEPATITIS B: (test code = 11743) (NOTE) INTERPRETATION HEPATITIS C: (test code = 26120) (NOTE) [id number] 00:00:00* Test Item Value Reference Range Interpretation Comme nts RPR RESULT (test code = 3501) NON-REACTIVE RPR TITER (test code = 3500) NOT INDIC. TITER [id number] 00:00:00* Test Item Value Reference Range Interpretation Comme nts RPR RESULT (test code = 3501) NON-REACTIVE RPR TITER (test code = 3500) NOT INDIC. TITER [id number] 00:00:00* Test Item Value Reference Range Interpretation Comme nts RPR RESULT (test code = 3501) NON-REACTIVE RPR TITER (test code = 3500) NOT INDIC. TITER VAGINAL PATHOGENS DNA [id number] 00:00:00* Test Item Value Reference Range Interpretation Comme nts DAMIR SPECIES (test code = ) NEGATIVE G. VAGINALIS (test code = ) NEGATIVE T. VAGINALIS (test code = 00844) NEGATIVE VAGINAL PATHOGENS DNA [id number] 00:00:00* Test Item Value Reference Range Interpretation Comme nts DAMIR SPECIES (test code = 94054) NEGATIVE G. VAGINALIS (test code = 25420) NEGATIVE T. VAGINALIS (test code = 64222) NEGATIVE SARS-CoV-2 (COVID-19), RT-PCR/[id number] 13:12:43* Test Item Value Reference Range Interpretation Comments SARS-CoV-2 INTERPRETATION (test code = 29263) NEGATIVE SEE NOTE SARS-CoV-2 R NA NOT DETECTEDNegative results do not preclude SARS-CoV-2 infection and should notbe used as the sole basis for patient management decisions. Negativeresults must be combined with clinical observations, patient history,and epidemiological information. Optimum specimen types and timingfor peak viral levels during infections caused by SARS-CoV-2 have notbeen determined. Collection of multiple specimens or types ofspecimens may be necessary to detect virus. Improper specimencollection and handling, sequence variability under primers/probes,or organism present below the limit of detection may lead to falsenegative results. Positive and negative predictive values oftesting are highly dependent on prevalence. False negative testresults are more likely when prevalence is high. SOURCE (test code = 12931) NASOPHARYNGEAL Note: Methodolog y is Ronit Jagdeep Real-Time RT-PCR. The expected result or reference range is NEGATIVE (Not Detected). For more information regarding COVID-19 testing to include clinicalinformation, methodology detail, intended use, FDA authorization andrecommended fact sheets for patients or healthcare providers, see NewTuneWiki Announcement: SARS-CoV-2 (COVID-19) by NAAT at URL below (note,fact sheets are provided by method given in report:[email or web address] Alternatively, see downloadable PDF fact sheet at:[email or web address] UNLESS OTHERWISE INDICATED, ALL TESTING PERFORMED [facility] [employer] [address] [place] [address] TELEPHONE SURVEYOR: ELIF MADISON M.D. CLIA NUMBER [id number] [place]. [id number] SARS-CoV-2 (COVID-19) by RT-PCR (HIGH RISK)2021-09-16 00:00:00* Test Item Value Reference Range Interpretation Comme nts SARS-CoV-2 INTERPRETATION (test code = 57038) NEGATIVE SOURCE (test code = 42182) NASOPHARYNGEAL SARS-CoV-2 (COVID-19) by RT-PCR (HIGH RISK)2021-09-16 00:00:00* Test Item Value Reference Range Interpretation Comme nts SARS-CoV-2 INTERPRETATION (test code = 15120) NEGATIVE SOURCE (test code = 54142) NASOPHARYNGEAL SARS-CoV-2 (COVID-19), RT-PCR/[id number] 13:37:12* Test Item Value Reference Range Interpretation Comments SARS-CoV-2 INTERPRETATION (test code = 56549) PRESUMPTIVE POSITIVE SEE NOTE A NOTE: PRESUMPTIVE POSITIVE RESULTS ARE MOST CONSISTENT WITH [id number] THE LIMIT OF DETECTION OF THE ASSAY. OTHER UNCOMMON POSSIBLECAUSES ARE A MUTATION IN ONE OF THE TARGET REGIONS, INFECTION WITHANOTHER SARBECOVIRUS OR LABORATORY ISSUES. CORRELATE WITH CLINICALHISTORY AND EPIDEMIOLOGIC FINDINGS. SOURCE (test code = 55337) NASOPHARYNGEAL Note: Methodolog y is Ronit Jagdeep Real-Time RT-PCR. The expected result or reference range is NEGATIVE (Not Detected). For more information regarding COVID-19 testing to include clinicalinformation , methodology detail, intended use, FDA authorization andrecommended fact sheets for patients or healthcare providers, see TalentClick Announcement: SARS-CoV-2 (COVID-19) by NAAT at URL below (note,fact sheets are provided by method given in report:https://www. [email or web address] ans/client-[email or web address] ations/ Alternatively, see downloadable PDF fact sheet at:[email or web address]/[email or web address]-RT -PCR Note: Methodology is Ronit Jagdeep Real-Time RT-PCR. The expected result or reference range is NEGATIVE (Not Detected). For more information regarding COVID-19 testing to include clinicalinformation , methodology detail, intended use, FDA authorization andrecommended fact sheets for patients or healthcare providers, see NewTest Announcement: SARS-CoV-2 (COVID-19) by NAAT at URL below (note,fact sheets are provided by method given in report:https://www. [email or web address]/clinici ans/client-[email or web address] ations/ Alternatively, see downloadable PDF fact sheet at:[email or web address] -PCR UNLESS OTHERWISE INDICATED, ALL TESTING PERFORMED [facility] [employer], [facility]. [address] [place] [address] TELEPHONE SURVEYOR: ELIF MADISON M.D. IA NUMBER [id number] [facility] [place]. [id number] SARS-CoV-2 (COVID-19) by RT-PCR (HIGH RISK)2021-09-09 00:00:00* Test Item Value Reference Range Interpretation Comme nts SARS-CoV-2 INTERPRETATION (test code = 00622) PRESUMPTIVE POSITIVE SOURCE (test code = 49787) NASOPHARYNGEAL SARS-CoV-2 (COVID-19) by RT-PCR (HIGH RISK)2021-09-09 00:00:00* Test Item Value Reference Range Interpretation Comme nts SARS-CoV-2 INTERPRETATION (test code = 66093) PRESUMPTIVE POSITIVE SOURCE (test code = 27749) NASOPHARYNGEAL BASIC METABOLIC PANEL (NA, K, CL, CO2, GLUCOSE, BUN, CREATININE, CA)2021-08-25 01:45:53* Test Item Value Reference Range Interpretation Comme nts NA (test code = 8667531457) 136 mmol/L 135-145 K (test code = 5110373401) 4.1 mmol/L 3.5-5.0 CL (test code = 1235506895) 102 mmol/L 98-108 CO2 TOTAL (test code = 2007545964) 29 mmol/L 23-31 AGAP (test code = 2478108973) 2-16 BUN (test code = 0902882119) 9 mg/dL 7-23 GLUCOSE (test code = 3912666494) 92 mg/dL 70-110 CREATININE (test code = 9100113558) 0.54 mg/dL 0.50-1.04 CALCIUM (test code = 5926999688) 8.5 mg/dL 8.6-10.6 L eGFR (test code = 1357549995) mL/min/1.73m2 EMERALD (test code = EMERALD) Association of [...] or abnormalities in imaging tests). Lab Interpretation (test code = 80419-7) Abnormal [facility] WITH [id number] 01:34:37* Test Item Value Reference Range Interpretation Comme nts WBC (test code = 6690-2) See_Comment [Clipabout] The system which generated this result transmitted reference range: 4.30 - 11.10 10*3/?L. The reference range was not used to interpret this result as normal/abnormal. RBC (test code = 789-8) See_Comment [Automated [employer]] The system which generated this result transmitted reference range: 3.93 - 5.25 10*6/?L. The reference range was not used to interpret this result as normal/abnormal. HGB (test code = 718-7) 13.4 g/dL 11.6-15.0 HCT (test code = 4544-3) 39.8 % 35.7-45.2 MCV (test code = 787-2) 88.8 fL 80.6-95.5 MCH (test code = 785-6) 29.9 pg 25.9-32.8 MCHC (test code = 786-4) 33.7 g/dL 31.6-35.1 RDW-SD (test code = 63184-4) 41.3 fL 39.0-49.9 RDW-CV (test code = 788-0) 12.7 % 12.0-15.5 PLT (test code = 777-3) See_Comment [Automated Normala ge] The system which generated this result transmitted reference range: 166 - 358 10*3/?L. The reference range was not used to interpret this result as normal/abnormal. MPV (test code = 26147-9) 9.1 fL 9.5-12.9 L NRBC/100 WBC (test code = 8295505997) See_Comment [Automated [employer] ssage] The system which generated this result transmitted reference range: 0.0 - 10.0 /100 WBCs. The reference range was not used to interpret this result as normal/abnormal. NRBC x10^3 (test code = 7568480717) <0.01 See_Comment [Automated Normala ge] The system which generated this result transmitted reference range: 10*3/?L. The reference range was not used to interpret this result as normal/abnormal. GRAN MAT (NEUT) % (test code = 770-8) 49.6 % IMM GRAN % (test code = 0037781558) 0.20 % LYMPH % (test code = 736-9) 39.5 % MONO % (test code = 5905-5) 9.0 % EOS % (test code = 713-8) 1.3 % BASO % (test code = 706-2) 0.4 % GRAN MAT x10^3(ANC) (test code = 5578874828) 2.36 10*3/uL 1.88-7.09 IMM GRAN x10^3 (test code = 0013978026) <0.03 0.00-0.06 LYMPH x10^3 (test code = 731-0) 1.88 10*3/uL 1.32-3.29 MONO x10^3 (test code = 742-7) 0.43 10*3/uL 0.33-0.92 EOS x10^3 (test code = 711-2) 0.06 10*3/uL 0.03-0.39 BASO x10^3 (test code = 704-7) <0.03 0.01-0.07 Lab Interpretation (test code = 60570-4) [facility] [id number] 01:28:00* Test Item Value Reference Range Interpretation Comme nts POCT PREG (test code = 1605) negative On board controls acceptable with C Line (test code = 3574) present POCT PREG LOT # (test code = 3575) [id number] POCT PREG TEST DATE ( test code = 3576) 09/28/2022 Lab Interpretation (test cod e = 25944-0) Normal [facility] (URINE)2020-12-10 05:28:49* Test Item Value Reference Range Interpretation Comme nts AMPHET (test code = 5250980653) Negative Negative Cocaine Metabolite (test code = 0502315963) Negative Negative OPIATES (test code = 9947541920) Presumptive Positive Negative A THC (test code = 1872388981) Negative Negative EMERALD (test code = EMERALD) Urine Drug Cutoff Ranges Amphetamine: ? 1,000 ng/mLCocaine: ? 150 ng/mLOpiates: ? 300 ng/mLCannabinoids: ?50 ng/mL The results are to be used only for medical (i.e., treatment) purposes. Unconfirmed screening results must not be used for non-medical purposes (e.g., employment testing, legal testing). Lab Interpretation (test code = 08869-1) [facility]normal [facility] ABDOM[facility] PELVIS WO [id number] 04:25:17No acute intra-abdominal or pelvic abnormality. No genitourinary stones. Complex right ovarian cyst, likely hemorrhagic cyst measuring 3.8 cm RL: 6200AFC: 35403 Patient name: LORNA SIMSLes: 1995 25 years EXAMINATION: CT A BDOMEN PELVIS WO CONTRAST Ordering Physician: AMBER CARDOZO [...] normal in sizeand morphology without discrete lesions. Nocalcified gallstones. Thespleen is normal. No pancreatic lesions [...] bases are clear. [facility], Radiant Results Inft User- 12/09/2020 11:26 PM CDTPatient name: LORNA BREWER [facility]: 1995 25 years EXAMINATION: CT ABDOMEN PELVIS WO CONTRASTOrdering Physician: AMBER CARDOZO CLINICAL HISTORY:Flank pain, kidneystone suspected COMPARISON:NoneTECHNIQUE:Helical CT images of the abdomen and pelvis were performedfrom the lungbases to the proximal femurs using 5 mm slice thickness without theadministration of IV contrast. Coronal and sagittal reconstruction wasperformed. Dose reduction technology was utilized..FINDINGS:Lack of IV contrast decreased sensitivity for detecting and characterizingabnormalities within the abdomen and pelvis. The liver is normal in sizeand morphology without discrete lesions. Nocalcified gallstones. Thespleen is normal. No pancreatic lesions or inflammatory changes. Theadrenal glands are normal.Both kidneys are symmetric in size without discrete lesions. No stones orhydronephrosis. Urinary bladder is grossly normal. Complex cyst in theright ovary measures 3.8 cm.No hiatalhernia or esophageal thickening. No discrete gastric thickeningor surrounding inflammatory changes.The large and small bowel are normalin caliber and wall thickness. The appendix is normal.No free fluid or abscess. No adenopathy. Aorta is normal in caliber.No acute osseous abnormality. No acute process in the subcutaneous softtissues. The lung bases are clear.IMPRESSIONNo acute intra-abdominal or pelvic abnormality. No genitourinary stones.Complex right ovarian cyst, likely hemorrhagic cyst aisha suring 3.8 cmRL: 6200AF: 54945 [facility] 02:12:28* Test Item Value Reference Range Interpretation Comme nts APPEARANCE (test code = 3034753374) Hazy Clear A COLOR (test code = 4695429868) Yellow Yellow PH (test code = 4470091222) 4.8-8.0 SP GRAVITY (test code = 7185566280) 1.003-1.030 GLU U QUAL (test code = 4874782748) Normal Normal BLOOD (test code = 2193859032) Negative Negative KETONES (test code = 4392572981) Negative Negative PROTEIN (test code = 2887-8) Negative Negative UROBILIN (test code = 6784145542) 4.0 mg/dL Normal A BILIRUBIN (test code = 6069035266) Negative Negative NITRITE (test code = 9006281193) Negative Negative LEUK HOLLEY (test code = 1504915598) Negative Negative RBC/HPF (test code = 0624601386) See_Comment H [Automated Normala ge] The system which generated this result transmitted reference range: 0 - 3 HPF. The reference range was not used to interpret this result as normal/abnormal. WBC/HPF (test code = 7360589290) See_Comment [Automated Normala ge] The system which generated this result transmitted reference range: 0 - 5 HPF. The reference range was not used to interpret this result as normal/abnormal. BACTERIA (test code = 5444504855) Negative Negative MUCOUS (test code = 6611926999) Slight Negative LPF A SQ EPITH (test code = 9220403492) HPF YEAST BUD (test code = 6125906821) See_Comment H [Automated Normala ge] The system which generated this result transmitted reference range: <=1 HPF. The reference range was not used to interpret this result as normal/abnormal. Lab Interpretation (test code = 77184-9) Abnormal [facility] Taylor[facility] Metabolic [id number] 02:09:13* Test Item Value Reference Range Interpretation Comme nts NA (test code = 0007592670) 137 mmol/L 135-145 K (test code = 4291508970) 3.7 mmol/L 3.5-5.0 CL (test code = 3733154056) 103 mmol/L 98-108 CO2 TOTAL (test code = 7510027647) 26 mmol/L 23-31 AGAP (test code = 4033982706) 2-16 BUN (test code = 9033367992) 12 mg/dL 7-23 GLUCOSE (test code = 8647481761) 92 mg/dL 70-110 CREATININE (test code = 7952837512) 0.62 mg/dL 0.50-1.04 TOTAL BILI (test code = 2817970858) 0.4 mg/dL 0.1-1.1 CALCIUM (test code = 5524481264) 8.9 mg/dL 8.6-10.6 T PROTEIN (test code = 0985380644) 7.1 g/dL 6.3-8.2 ALBUMIN (test code = 9425378907) 4.4 g/dL 3.5-5.0 ALK PHOS (test code = 7426579807) 79 U/L 34-122 ALTv (test code = 1742-6) 16 U/L 5-35 AST(SGOT) (test code = 9953284277) 23 U/L 13-40 eGFR (test code = 4239582635) mL/min/1.73m2 EMERALD (test code = EMERALD) Association of [...] or urine or abnormalities in imaging tests). [facility] TaylorLipase, [id number] 02:08:38* Test Item Value Reference Range Interpretation Comme nts LIPASE (test code = 9083208719) 53 U/L 0-220 Lab Interpretation (test cod e = 01603-6) Normal [facility] Taylor[facility] with [id number] 02:00:16* Test Item Value Reference Range Interpretation Comme nts WBC (test code = 6690-2) See_Comment [Automated [employer]] The system which generated this result transmitted reference range: 4.30 - 11.10 10*3/?L. The reference range was not used to interpret this result as normal/abnormal. RBC (test code = 789-8) See_Comment [Clipabout] The system which generated this result transmitted reference range: 3.93 - 5.25 10*6/?L. The reference range was not used to interpret this result as normal/abnormal. HGB (test code = 718-7) 13.4 g/dL 11.6-15.0 HCT (test code = 4544-3) 39.9 % 35.7-45.2 MCV (test code = 787-2) 89.1 fL 80.6-95.5 MCH (test code = 785-6) 29.9 pg 25.9-32.8 MCHC (test code = 786-4) 33.6 g/dL 31.6-35.1 RDW-SD (test code = 90356-0) 42.6 fL 39.0-49.9 RDW-CV (test code = 788-0) 13.2 % 12.0-15.5 PLT (test code = 777-3) See_Comment [Automated messa ge] The system which generated this result transmitted reference range: 166 - 358 10*3/?L. The reference range was not used to interpret this result as normal/abnormal. MPV (test code = 59515-1) 9.5 fL 9.5-12.9 NRBC/100 WBC (test code = 8417254042) See_Comment [Automated me ssage] The system which generated this result transmitted reference range: 0.0 - 10.0 /100 WBCs. The reference range was not used to interpret this result as normal/abnormal. NRBC x10^3 (test code = 5098682322) <0.01 See_Comment [Automated me ssage] The system which generated this result transmitted reference range: 10*3/?L. The reference range was not used to interpret this result as normal/abnormal. GRAN MAT (NEUT) % (test code = 770-8) 59.6 % IMM GRAN % (test code = 4352321555) 0.30 % LYMPH % (test code = 736-9) 31.8 % MONO % (test code = 5905-5) 6.4 % EOS % (test code = 713-8) 1.4 % BASO % (test code = 706-2) 0.5 % GRAN MAT x10^3(ANC) (test code = 5076261611) 5.15 10*3/uL 1.88-7.09 IMM GRAN x10^3 (test code = 6562246491) 0.03 10*3/uL 0.00-0.06 LYMPH x10^3 (test code = 731-0) 2.75 10*3/uL 1.32-3.29 MONO x10^3 (test code = 742-7) 0.55 10*3/uL 0.33-0.92 EOS x10^3 (test code = 711-2) 0.12 10*3/uL 0.03-0.39 BASO x10^3 (test code = 704-7) 0.04 10*3/uL 0.01-0.07 [facility]PO[facility] [id number] 01:46:00* Test Item Value Reference Range Interpretation Comme nts POCT PREG (test code = 1605) negative On board controls acceptable with C Line (test code = 3574) present Lab Interpretation (test cod e = 40349-8) Normal [facility] TaylorSARS-CoV-2 (COVID-19) by RT-PCR (HIGH RISK) 2020-12-03 00:00:00* Test Item Value Reference Range Interpretation Comme nts SARS-CoV-2 INTERPRETATION (t est code = 48072) NEGATIVE SOURCE (test code = 39366) NOT SPECIFIED SARS-CoV-2 (COVID-19) by RT-PCR (HIGH RISK)2020-12-03 00:00:00* Test Item Value Reference Range Interpretation Comme nts SARS-CoV-2 INTERPRETATION (t est code = 60813) NEGATIVE SOURCE (test code = 18002) NOT SPECIFIED PAP TEST, THINPREP, [id number] 00:00:00* Test Item Value Reference Range Interpretation Comme nts SOURCE: (test code = 8001) Cervical/Endocervical SLIDES: (test code = 8011) 1 LMP: (test code = 8021) 03/16/17 SPECIMEN ADEQUACY: (test code = 24042) (NOTE) INTERPRETATION: (test code = 90788) NO EPITHELIAL ABNORMALITY SEE BELOW WINE CELLAR STOCK CLERK: (test code = 8101) LITO Skaggs(ASCP) QC TECHNOLOGIST: (test code = 8111) LITO Woods(ASCP)IAC LOCATION: (test code = 81223) (NOTE) CPT: (test code = 8140) (NOTE) PAP TEST, THINPREP, [id number] 00:00:00* Test Item Value Reference Range Interpretation Comme nts SOURCE: (test code = 8001) Cervical/Endocervical SLIDES: (test code = 8011) 1 LMP: (test code = 8021) 03/16/17 SPECIMEN ADEQUACY: (test code = 77422) (NOTE) INTERPRETATION: (test code = 69187) NO EPITHELIAL ABNORMALITY SEE BELOW WINE CELLAR STOCK CLERK: (test code = 8101) LITO Skaggs(ASCP) QC TECHNOLOGIST: (test code = 8111) LITO Woods(ASCP)IAC LOCATION: (test code = 19783) (NOTE) CPT: (test code = 8140) (NOTE) GC AND CHLAMYDIA AMPLIFIED, [id number] 00:00:00* Test Item Value Reference Range Interpretation Comme nts GONORRHEA, TMA (test code = 03911) NEGATIVE CHLAMYDIA, TMA (test code = 45856) NEGATIVE GC AND CHLAMYDIA AMPLIFIED, [id number] 00:00:00* Test Item Value Reference Range Interpretation Comme nts GONORRHEA, TMA (test code = 29174) NEGATIVE CHLAMYDIA, TMA (test code = 24975) NEGATIVE HIV AB/AG COMBO RFLX [id number] 00:00:00* Test Item Value Reference Range Interpretation Comme nts HIV 1/2 4TH GEN, RFLX CONF ( test code = 3514) NON-REACTIVE HIV AB/AG COMBO RFLX [id number] 00:00:00* Test Item Value Reference Range Interpretation Comme nts HIV 1/2 4TH GEN, RFLX CONF ( test code = 3514) NON-REACTIVE [id number] 00:00:00* Test Item Value Reference Range Interpretation Comme nts RPR RESULT (test code = 3501) NON-REACTIVE RPR TITER (test code = 3500) NOT INDIC. TITER [id number] 00:00:00* Test Item Value Reference Range Interpretation Comme nts RPR RESULT (test code = 3501) NON-REACTIVE RPR TITER (test code = 3500) NOT INDIC. TITER [id number] 00:00:00* Test Item Value Reference Range Interpretation Comme nts RPR RESULT (test code = 3501) NON-REACTIVE RPR TITER (test code = 3500) NOT INDIC. TITER ACUTE HEPATITIS [id number] 00:00:00* Test Item Value Reference Range Interpretation Comme nts HEPATITIS A IgM (test code = 84800) NON-REACTIVE HEPATITIS B CORE IgM (test c ode = 4644) NON-REACTIVE HEPATITIS B SURF AG (test co de = 2739) NON-REACTIVE HEPATITIS C ANTIBODY (test c ode = 4675) NON-REACTIVE INTERPRETATION HEPATITIS A: (test code = 2552) (NOTE) INTERPRETATION HEPATITIS B: (test code = 27349) (NOTE) INTERPRETATION HEPATITIS C: (test code = 60951) (NOTE) ACUTE HEPATITIS [id number] 00:00:00* Test Item Value Reference Range Interpretation Comme nts HEPATITIS A IgM (test code = 62054) NON-REACTIVE HEPATITIS B CORE IgM (test c ode = 4644) NON-REACTIVE HEPATITIS B SURF AG (test co de = 2739) NON-REACTIVE HEPATITIS C ANTIBODY (test c ode = 4675) NON-REACTIVE INTERPRETATION HEPATITIS A: (test code = 2552) (NOTE) INTERPRETATION HEPATITIS B: (test code = 86868) (NOTE) INTERPRETATION HEPATITIS C: (test code = 40065) (NOTE)"
[2023-12-23] MEDS ORDERED: ACETAMINOPHEN 500 MG TAB ONE (12:07)
[2023-12-23 12:35] LABS: SARS-CoV-2 Antigen CONTROL BLUE LINE VIS/BG OK; SARS-CoV-2 Antigen Rapid Res Negative (Negative)
--- NOTE | 2023-12-23 13:23 | EDPHYS ---
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 - Infectious Disease History:: Denies. - Social history:: Smoking status: Patient denies any tobacco usage or history of. Vital Signs: 11:20 BP 123 / 86; Pulse 93; Resp 18 S; Temp 97.3(TE); Pulse Ox 100% on R/A; Weight 83.46 kg aa5 (R); Height 5 ft. 2 in. (R); 12:19 BP 119 / 79; Pulse 88; Resp 16; Pulse Ox 100% on R/A; Pain 8/10; tl4 13:42 BP 112 / 70; Pulse 80; Resp 16; Temp 36.3(O); Pulse Ox 99% on R/A; Pain 0/10; tl4 11:20 Body Mass Index 33.65 (83.46 kg, 157.48 cm) aa5 12:19 Pain Scale: Adult tl4 13:42 Pain Scale: Adult tl4 MDM: 11:46 Patient medically screened. rt 12/22 11:52 Order name: Influenza Screen (a \T\ B); Complete Time: 13:21 rt 12/22 11:52 Order name: SARS RAPID; Complete Time: 13:21 rt 12/22 11:52 Order name: Strep; Complete Time: 13:21 rt 12/22 12:41 Order name: Throat Culture EDMS Administered Medications: 12:16 Drug: Acetaminophen PO 1000 mg PO once Route: PO; tl4 13:28 Follow up: Response: No adverse reaction; Pain is decreased tl4 Disposition Summary: 12/23/23 13:23 Discharge Ordered Notes: Location: Home rt Problem: new rt Symptoms: are unchanged rt Condition: Stable rt Diagnosis - Acute upper respiratory infection, unspecified rt Followup: rt - With: Private Physician - When: 5 - 6 days - Reason: Discharge Instructions: - Discharge Summary Sheet rt - Viral Respiratory Infection rt Forms: - Work release form rt - Medication Reconciliation Form rt - Antibiotic Education rt - Prescription Opioid Use rt - Patient Portal Instructions rt - Leadership Thank You Letter rt Signatures: Dispatcher [employer] Kellie Patrick RN RN aa5 Angel Rosales MD MD rt Sj Rivera RN RN tl4 Corrections: (The following items were deleted from the chart) 11:22 11:21 Allergies: Aspirin; aa5 aa5
--- NOTE | 2023-12-23 13:23 | ER ---
Nurse's Notes [facility] Name: Lilia Nunez Age: 28 yrs Sex: Female : 1995 Arrival Date: 12/23/2023 Time: 11:13 Bed 11 Private MD: Diagnosis: Acute upper respiratory infection, unspecified Presentation: 12/22 11:20 Chief complaint: Patient states: cough, runny nose, sore throat that began Tuesday. aa5 Coronavirus screen: congestion, cough unrelated to allergies, sore throat. Ebola Screen: Patient denies travel to an Ebola-affected area in the 21 days before illness onset. Initial Sepsis Screen: Does the patient meet any 2 criteria? HR > 90 bpm. Does the patient have a suspected source of infection? No. Patient's initial sepsis screen is negative. Risk Assessment: Do you want to hurt yourself or someone else? Patient reports no desire to harm self or others. Onset of symptoms was November 2023. 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 - Infectious Disease History:: Denies. - Social history:: Smoking status: Patient denies any tobacco usage or history of. Screenin:20 [facility] [place] ED Fall Risk Assessment (Adult) History of falling in the last 3 months, tl4 including since admission No falls in past 3 months (0 pts) Confusion or Disorientation No (0 pts) Intoxicated or Sedated No (0 pts) Impaired Gait No (0 pts) Mobility Assist Device Used No (0 pt) Altered Elimination No (0 pt) Score/Fall Risk Level 0 - 2 = Low Risk Oriented to surroundings, Maintained a safe environment, Educated pt \T\ family on fall prevention, incl call for assistance when getting out of bed, Assessed \T\ reinforced patient's understanding of fall precautions. Abuse screen: Denies threats or abuse. Denies injuries from another. Nutritional screening: No deficits noted. Tuberculosis screening: No symptoms or risk factors identified. Assessment: 12:17 General: Appears in no apparent distress. Behavior is calm, cooperative. Pain: tl4 Complains of pain in generalized body aches Quality of pain is described as aching. Neuro: Level of Consciousness is awake, alert, obeys commands, Oriented to person, place, time, situation, Moves all extremities. Full function Gait is steady, Speech is normal. Cardiovascular: Capillary refill < 3 seconds Patient's skin is warm and dry. Respiratory: Reports cough that is Airway is patent Respiratory effort is even, unlabored, Respiratory pattern is regular, symmetrical, Breath sounds are clear bilaterally. GI: No signs and/or symptoms were reported involving the gastrointestinal system. : No signs and/or symptoms were reported regarding the genitourinary system. EENT: No signs and/or symptoms were reported regarding the EENT system. Derm: No signs and/or symptoms reported regarding the dermatologic system. Musculoskeletal: Reports generalized body aches. Vital Signs: 11:20 BP 123 / 86; Pulse 93; Resp 18 S; Temp 97.3(TE); Pulse Ox 100% on R/A; Weight 83.46 kg aa5 (R); Height 5 ft. 2 in. (R); 12:19 BP 119 / 79; Pulse 88; Resp 16; Pulse Ox 100% on R/A; Pain 8/10; tl4 13:42 BP 112 / 70; Pulse 80; Resp 16; Temp 36.3(O); Pulse Ox 99% on R/A; Pain 0/10; tl4 11:20 Body Mass Index 33.65 (83.46 kg, 157.48 cm) aa5 12:19 Pain Scale: Adult tl4 13:42 Pain Scale: Adult tl4 ED Course: 11:16 Patient arrived in ED. mg5 11:20 Arm band placed on. aa5 11:21 Triage completed. aa5 11:43 Angel Rosales MD is Attending Physician. rt 11:58 Sj Rivera RN is Primary Nurse. tl4 12:16 Strep Sent. tl4 12:16 SARS RAPID Sent. tl4 12:16 Influenza Screen (a \T\ B) Sent. tl4 12:20 Patient has correct armband on for positive identification. Bed in low position. Call tl4 light in reach. Side rails up X 1. Provided Education on: ED process. Client placed on continuous cardiac and pulse oximetry monitoring. NIBP monitoring applied. Door closed. Noise minimized. Lights dimmed. Moved to private room. Warm blanket given. 12:21 No provider procedures requiring assistance completed. tl4 13:42 Patient did not have IV access during this emergency room visit. tl4 Administered Medications: 12:16 Drug: Acetaminophen PO 1000 mg PO once Route: PO; tl4 13:28 Follow up: Response: No adverse reaction; Pain is decreased tl4 Medication: 12:19 VIS not applicable for this client. tl4 Outcome: 13:23 Discharge ordered by . rt 13:42 Discharged to home ambulatory, tl4 13:42 Condition: stable 13:42 Discharge instructions given to patient, Instructed on discharge instructions, follow up and referral plans. Demonstrated understanding of instructions, follow-up care, 13:43 Patient left the ED. tl4 Signatures: Kellie Lopez RN RN aa5 Angel Rosales MD MD rt Irene Morfin mg5 Sj Rivera RN RN tl4 Corrections: (The following items were deleted from the chart) 11:22 11:21 Allergies: Aspirin; piero aa5
[2023-12-23 13:57] VITALS: BP 112/70; TEMP 36.3; O2SAT 99
== END 2023-12-23 13:43 | disposition home or self-care (01) ==
LOC: ER 11:13
DX: J06.9 Acute upper respiratory infection, unspecified (principal); Z11.52 Encounter for screening for COVID-19
CPT/HCPCS: 36415; 87070; 87081; 87804; 87811

== ENCOUNTER 2024-04-12 14:32 | Emergency (ER) | payer SELFPAY ==
--- NOTE | 2024-04-12 15:03 | ER ---
Nurse's Notes [facility] Name: Lilia Nunez Age: 29 yrs Sex: Female : 1995 Arrival Date: 04/12/2024 Time: 14:32 Bed 11 Private MD: Diagnosis: Unspecified acute conjunctivitis, left eye Presentation: 04/12 14:44 Chief complaint: Patient states: left eye redness and swelling, itching X 2 days. iw Coronavirus screen: At this time, the client does not indicate any symptoms associated with coronavirus-19. Ebola Screen: No symptoms or risks identified at this time. Initial Sepsis Screen: Does the patient meet any 2 criteria? No. Patient's initial sepsis screen is negative. Does the patient have a suspected source of infection? No. Patient's initial sepsis screen is negative. Risk Assessment: Do you want to hurt yourself or someone else? Patient reports no desire to harm self or others. Onset of symptoms was April 10, 2024. 14:44 Method Of Arrival: Ambulatory iw 14:44 Acuity: TERRY 4 iw Historical: - Allergies: 14:45 No Known Allergies; iw - Home Meds: 14:45 semaglutide subcutaneous twice a month [Active]; iw - PMHx: 14:45 Anxiety; Asthma; iw - Infectious Disease History:: Denies. - Social history:: Smoking status: . Vital Signs: 14:44 BP 123 / 64; Pulse 98; Resp 16; Pulse Ox 99% on R/A; iw ED Course: 14:35 Patient arrived in ED. ra3 14:38 Misha Umaña PA is PHCP. cp 14:38 Misha Muñoz MD is Attending Physician. cp 14:45 Triage completed. iw 14:46 Marilyn Lovett RN is Primary Nurse. iw 14:46 Arm band placed on. iw 15:03 Barbara Carpenter MD is Referral Physician. cp Administered Medications: No medications were administered Outcome: 15:03 Discharge ordered by . cp 15:25 Patient left the ED. iw Signatures: Marilyn Lovett RN RN iw Misha Umaña PA PA Judith Brown ra3
--- NOTE | 2024-04-12 15:03 | EDPHYS ---
Physician Documentation [facility] Name: Lilia Nunez Age: 29 yrs Sex: Female : 1995 Arrival Date: 04/12/2024 Time: 14:32 Bed 11 Private MD: Misha Jackson HPI: 04/12 14:50 This 29 yrs old Female presents to ER via Ambulatory with complaints of Eye cp Problem. 14:50 The patient is experiencing matting or discharge, pain, redness, to the left eye. cp Onset: The symptoms/episode began/occurred today. Duration: the symptoms are continuous. Associated signs and symptoms: Pertinent negatives: ear ache, fever, headache, runny nose, sore throat. Patient wears glasses. Historical: - Allergies: 14:45 No Known Allergies; iw - Home Meds: 14:45 semaglutide subcutaneous twice a month [Active]; iw - PMHx: 14:45 Anxiety; Asthma; iw - Infectious Disease History:: Denies. - Social history:: Smoking status: . ROS: 14:52 Constitutional: Negative for body aches, chills, fever, cp 14:52 Eyes: Positive for discharge, pain, redness, 14:52 ENT: Negative for drainage from ear(s), ear pain, sore throat, difficulty swallowing, cp difficulty handling secretions, 14:52 Respiratory: Negative for cough, Exam: 14:55 Constitutional: The patient appears in no acute distress, alert, awake, non-toxic, well cp developed, well nourished, 14:55 Head/Face: Normocephalic, atraumatic. cp 14:55 Eyes: Periorbital structures: appear normal, Pupils: equal, round, and reactive to light and accomodation, Extraocular movements: intact throughout, Conjunctiva: mild injection of left conjunctiva. Corneas: are normal, no foreign body, Lids and lashes: mild swelling of left lower lid. Examination of the other eye reveals no obvious gross abnormality, 14:55 ENT: External ear(s): are unremarkable, Nose: is normal, Mouth: Lips: moist, Oral mucosa: pink and intact, moist, Posterior pharynx: Airway: no evidence of obstruction, patent, 14:55 Neck: ROM/movement: is normal, is supple, without pain, no range of motions limitations, Lymph nodes: no appreciated lymphadenopathy, 14:55 Chest/axilla: Inspection: normal, 14:55 Cardiovascular: Rate: normal, 14:55 Respiratory: the patient does not display signs of respiratory distress, Respirations: normal, no use of accessory muscles, no retractions, 14:55 Skin: cellulitis, is not appreciated, no rash present. Vital Signs: 14:44 BP 123 / 64; Pulse 98; Resp 16; Pulse Ox 99% on R/A; iw MDM: 14:48 Patient medically screened. cp 14:50 Differential diagnosis: Corneal abrasion of Foreign body in Chemical conjunctivitis in cp Allergic conjunctivitis in Infectious conjunctivitis in. 15:02 Data reviewed: vital signs, nurses notes, and as a result, I will discharge patient. cp 15:02 Counseling: I had a detailed discussion with the patient and/or guardian regarding the cp historical points, exam findings, and any diagnostic results supporting the discharge/admit diagnosis, to return to the emergency department if symptoms worsen or persist or if there are any questions or concerns that arise at home. Administered Medications: No medications were administered Disposition Summary: 04/12/24 15:03 Discharge Ordered Notes: Location: Home cp Problem: new cp Symptoms: are unchanged cp Condition: Stable cp Diagnosis - Unspecified acute conjunctivitis, left eye cp Followup: cp - With: Barbara Carpenter MD - When: 2 - 3 days - Reason: Worsening of condition Discharge Instructions: - Discharge Summary Sheet cp - Bacterial Conjunctivitis, Adult cp - How to Use Eye Drops and Eye Ointments cp Forms: - Work release form iw - Medication Reconciliation Form cp - Antibiotic Education cp - Prescription Opioid Use cp - Patient Portal Instructions cp - Leadership Thank You Letter cp Prescriptions: - Vigamox 0.5 % Ophthalmic Drops - instill 1 drop OPHTHALMIC route every 8 hours for 7 days; 5 milliliter; cp Refills: 0, Product Selection Permitted Addendum: 04/19/2024 01:42 Co-signature as Attending Physician, Misha Muñoz MD I agree with the assessment and c etienne plan of care. Signatures: Misha Muñoz MD MD cha Williams, Irene, RN RN Misha Shine PA PA cp
[2024-04-12 15:29] VITALS: BP 123/64; O2SAT 99
--- OUTSIDE RECORDS SUMMARY | 2024-04-13 09:43 | XMS REPORT | Continuity of Care Document ---
Author Name Unknown Address [address] [facility] [address] [place] [address] [facility] thconnect Address [address] [facility] [address] [place] [address] Care Team Providers Care Photographic Intelligence Officer Name Role Phone Dena Perry Primary Care Physician [phone] SREE LOPEZ Attending Clinician Unavailable Sree Lopez MD Attending Clinician [phone] QIANA VALDEZ Attending Clinician Unavailable Qiana Kinney Attending Clinician [phone] Elliot Fletcher Attending Clinician [phone] ELLIOT FRASER Attending Clinician Unavailable Amber Cardozo NP Attending Clinician [phone] Payers Payer Name Policy Type Policy Number Effective Date Expirati on Date Source MEDICAID PENDING PENDING 2021 00:00:00 Problems Condition Name Condition Details Condition Category Status Onset Date Resolution Date Last Treatment Date Treating Clinician Comments Source No known active problems No known active problems Disease [facility] Allergies, Adverse Reactions, Alerts Allergy Name Allergy Type Status Severity Reaction(s) Onset Date Inactive Date Treating Clinician Comments Source NO KNOWN ALLERGIE S Drug Class Active [facility] Social History Social Habit Start Date Stop Date Quantity Comments Source History of tobacco use Cigarette Smoker [facility] Exposure to SARS-CoV-2 (event) 2022-08-31 00:00:00 2022-09-10 12:55:00 Not sure [facility] Cigarettes smoked current (pack per day) - Reported 2017-07-12 00:00:00 2017-07-12 00:00:00 [facility] Tobacco use and exposure 2017-07-12 00:00:00 2017-07-12 00:00:00 Smokeless tobacco non-user [facility] Sex Assigned At 1995 00:00:00 1995 00:00:00 [facility] Smoking Status Start Date Stop Date Source Smokes tobacco daily 2017-07-12 00:00:00 [facility] Medications Ordered Medication Name Filled Medication Name Start Date Stop Date Current Medication? Ordering Clinician Indication Dosage Frequency Signature (SIG) Comments Components Source LORazepam (ATIVAN) tablet 1 mg 09-10 19:30: 00 09-10 19:43 :00 No 1mg 1 mg, Oral, ONCE, 1 dose, On Tue09/10/22 at 1330, VIVIEN [facility] hydrOXYzine (VISTARIL) 25 mg capsule 09-10 00:00: 00 Yes [id number] 25mg Take 1 capsule by mouth 2 (two) times daily as needed for Anxiety. [facility] Dose Unknown 0 6-02 00:00: 00 No Dose Unknown 0 6-02 00:00: 00 No Dose Unknown 0 4-17 00:00: 00 No Dose Unknown 2021-0 4-17 00:00: 00 No Dose Unknown 2021-0 3-12 00:00: 00 No Dose Unknown 2021-0 3-12 00:00: 00 No Dose Unknown 2021-0 3-11 00:00: 00 No Dose Unknown 2021-0 3-11 00:00: 00 No Dose Unknown 2022-0 3-10 00:00: 00 No Dose Unknown 2-0 3-10 00:00: 00 No Dose Unknown 2022-0 3-09 00:00: 00 No Dose Unknown 2021-0 3-09 00:00: 00 No cefTRIAXone (ROCEPHIN) injection 500 mg 2020-08 03:45: 00 08-25 02:59 :00 No 500mg 500 mg, Intramuscu lar, ONCE, 1 dose, On Tue08/24/21 at 2145, VIVIEN
Re ason for Anti-Infec tive: Documented Infection< br>Documen héctor Infection Site: Pelvic
Duration of Therapy: 7 days [facility] NaCl 0.9% (NS) bolus infusion 1,000 mL 2020-08 02:00: 00 08-25 02:45 :00 No 1000mL at 999 mL/hr, 1,000 mL, IV Infusion, ONCE, 1 dose, On Tue08/24/21 at 2000, VIVIEN [facility] doxycycline hyclate 100 mg capsule 2020-08 00:00: 00 09-01 05:59 :00 No [id number] 100mg Take 1 capsule by mouth 2 (two) times daily for 7 days. [facility] traMADoL (ULTRAM) tablet 50 mg 03-26 22:15: 00 03-26 21:15 :00 No 50mg 50 mg, Oral, ONCE, 1 dose, Nadia 03/26/21 at 1715, Routine [facility] traMADoL 50 mg tablet 03-26 00:00: 00 Yes [id number] 50mg Take 1 tablet by mouth every 6 (six) hours as needed for Pain (scale 7-10). Indication s: acute pain [facility] clindamycin 150 mg capsule 03-26 00:00: 00 04-06 04:59 :00 No [id number] 450mg Take 3 capsules by mouth 3 (three) times daily for 10 days. [facility] dicyclomine (BENTYL) injection 20 mg 12-10 13:00: 00 Yes 20mg 20 mg, Intramuscu lar, QID, First dose on Tue12/10/20 at 0800, Until Discontinu ed, Routine [facility] ketorolac (TORADOL) injection 30 mg 12-10 04:45: 00 12-10 03:51 :00 No 30mg 30 mg, Slow IV Push, ONCE, 1 dose, Tu12/09/20 at 2345, Routine
member of the legislative council approving Restricted medication : AMBER CARDOZO [facility] dicyclomine 20 mg tablet 12-10 00:00: 00 Yes [id number] 20mg Take 1 tablet by mouth 4 (four) times daily as needed for Abdominal pain. [facility] indomethaci n 50 mg capsule 12-10 00:00: 00 12-18 04:59 :00 No [id number] 50mg Take 1 capsule by mouth 2 (two) times daily with meals for 7 days. [facility] Flonase Allergy Relief 50 mcg/actuati on nasal spray,suspe nsion 10-31 00:00: 00 No 12mcg/a ctuatio n Bromfed DM 2 mg-30 mg-10 mg/5 mL oral syrup 10-31 00:00: 00 No 75mg/5 mL HYDROcodone -acetaminop hen (NORCO 5) 5-325 mg tablet 1 tablet 2019-08 22:00: 00 06-16 21:06 :00 No 1{tbl} 1 tablet, Oral, ONCE, 1 dose, Tue06/16/20 at 1700, VIVIEN [facility] ketorolac (TORADOL) injection 60 mg 2019-08 22:00: 00 06-16 21:07 :00 No 60mg 60 mg, Intramuscu lar, ONCE, 1 dose, 06/16/20 at 1700, VIVIEN
Fa culty member approving Restricted medication : EMERGENCY ROOM, [facility] penicillin v potassium 500 mg tablet 2019-08 00:00: 00 06-24 04:59 :00 No [id number] 500mg Take 1 tablet by mouth 4 (four) times daily for 7 days. [facility] acetaminoph en-codeine 300-30 mg tablet 2019-08 00:00: 00 06-24 04:59 :00 No [id number] 1{tbl} Take 1 tablet by mouth every 6 (six) hours as needed for Pain (scale 7-10) for up to 7 days. Indication s: acute pain [facility] codeine-gua ifenesin 10-100 mg/5 mL solution 2016-08 00:00: 00 03-26 00:00 :00 No 5mL Take 5 mL by mouth every 6 (six) hours as needed for Cough. [facility] ondansetron 4 mg disintegrat ing tablet 2016-08 00:00: 00 03-26 00:00 :00 No 4mg Take 1 tablet by mouth every 8 (eight) hours as needed for Nausea and Vomiting (N/V). [facility] ibuprofen 800 mg tablet 12-29 00:00: 00 No 1mg Vital Signs Vital Name Observation Time Observation Value Comments S ource Systolic blood pressure 2022-09-10 18:57:00 180 mm[Hg] [facility] Diastolic blood pressure 2022-09-10 18:57:00 115 mm[Hg] [facility] Heart rate 2022-09-10 18:57:00 90 /min [facility] Body temperature 2022-09-10 18:57:00 36.83 Ariane [facility] Respiratory rate 2022-09-10 18:57:00 20 /min [facility] Body height 2022-09-10 18:57:00 157.5 cm [facility] Body weight 2022-09-10 18:57:00 79.379 kg [facility] BMI 2022-09-10 18:57:00 32.01 kg/m2 [facility] Oxygen saturation in Arterial blood by Pulse oximetry 2022-09-10 18:57:00 99 /min [facility] Systolic blood pressure 2021-08-25 02:00:00 120 mm[Hg] [facility] Diastolic blood pressure 2021-08-25 02:00:00 82 mm[Hg] [facility] Heart rate 2021-08-25 02:00:00 82 /min [facility] Respiratory rate 2021-08-25 02:00:00 15 /min [facility] Oxygen saturation in Arterial blood by Pulse oximetry 2021-08-25 02:00:00 100 /min [facility] Body temperature 2021-08-25 00:45:00 37.17 Ariane [facility] Body weight 2021-08-25 00:45:00 86.183 kg [facility] BMI 2021-08-25 00:45:00 34.75 kg/m2 [facility] Systolic blood pressure 2021 20:13:00 108 mm[Hg] [facility] Diastolic blood pressure 2021 20:13:00 86 mm[Hg] [facility] Heart rate 2021 20:13:00 90 /min [facility] Body temperature 2021 20:13:00 37.5 Ariane [facility] Respiratory rate 2021 20:13:00 18 /min [facility] Body height 2021 20:13:00 157.5 cm [facility] Body weight 2021 20:13:00 88.905 kg [facility] BMI 2021 20:13:00 35.85 kg/m2 [facility] Oxygen saturation in Arterial blood by Pulse oximetry 2021 20:13:00 100 /min [facility] Systolic blood pressure 2020-12-10 00:00:00 120 mm[Hg] [facility] Diastolic blood pressure 2020-12-10 00:00:00 74 mm[Hg] [facility] Heart rate 2020-12-10 00:00:00 71 /min [facility] Body temperature 2020-12-10 00:00:00 37.5 Ariane [facility] Respiratory rate 2020-12-10 00:00:00 18 /min [facility] Body weight 2020-12-10 00:00:00 86.183 kg [facility] BMI 2020-12-10 00:00:00 34.75 kg/m2 [facility] Oxygen saturation in Arterial blood by Pulse oximetry 2020-12-10 00:00:00 97 /min [facility] Systolic blood pressure 2020-12-10 00:00:00 120 mm[Hg] [facility] Diastolic blood pressure 2020-12-10 00:00:00 74 mm[Hg] [facility] Heart rate 2020-12-10 00:00:00 71 /min [facility] Body temperature 2020-12-10 00:00:00 37.5 Ariane [facility] Respiratory rate 2020-12-10 00:00:00 18 /min [facility] Body weight 2020-12-10 00:00:00 86.183 kg [facility] BMI 2020-12-10 00:00:00 34.75 kg/m2 [facility] Oxygen saturation in Arterial blood by Pulse oximetry 2020-12-10 00:00:00 97 /min [facility] Systolic blood pressure 2020-06-16 20:21:00 132 mm[Hg] [facility] Diastolic blood pressure 2020-06-16 20:21:00 74 mm[Hg] [facility] Heart rate 2020-06-16 20:21:00 82 /min [facility] Body temperature 2020-06-16 20:21:00 36.72 Ariane [facility] Respiratory rate 2020-06-16 20:21:00 20 /min [facility] Body height 2020-06-16 20:21:00 157.5 cm [facility] Body weight 2020-06-16 20:21:00 86.183 kg [facility] BMI 2020-06-16 20:21:00 34.75 kg/m2 [facility] Oxygen saturation in Arterial blood by Pulse oximetry 2020-06-16 20:21:00 100 /min [facility] Systolic blood pressure 2020-06-16 20:21:00 132 mm[Hg] [facility] Diastolic blood pressure 2020-06-16 20:21:00 74 mm[Hg] [facility] Heart rate 2020-06-16 20:21:00 82 /min [facility] Body temperature 2020-06-16 20:21:00 36.72 Ariane [facility] Respiratory rate 2020-06-16 20:21:00 20 /min [facility] Body height 2020-06-16 20:21:00 157.5 cm [facility] Body weight 2020-06-16 20:21:00 86.183 kg [facility] BMI 2020-06-16 20:21:00 34.75 kg/m2 [facility] Oxygen saturation in Arterial blood by Pulse oximetry 2020-06-16 20:21:00 100 /min [facility] BP Systolic 2021-11-04 11:02:00 108 mm[Hg] BP [...] Source POCT TEST 2022-09-10 19:42:00 Sree Lopez [facility] URINE DRUG (IMMUNOASSAY) - COMPREHENSIVE DRUG SCREEN 2022-09-10 19:41:00 Sree Lopez [facility] URINALYSIS 2022-09-10 19:41:00 Sree Lopez [facility] CONSENT/REFUSAL FOR DIAGNOSIS AND TREATMENT 2022-09-10 18:46:57 Doctor Unassigned, [place] [facility] POCT TEST 2021-08-25 01:28:00 Aviva Valdez [facility] BASIC METABOLIC PANEL (NA, K, CL, CO2, GLUCOSE, BUN, CREATININE, CA) 2021-08-25 01:26:00 Qiana Valdez [facility] CBC WITH DIFF 2021-08-25 01:26:00 Qiana Valdez [facility] URINALYSIS 2021-08-25 01:26:00 Puja Valdezanne [facility] CONSENT/REFUSAL FOR DIAGNOSIS AND TREATMENT 2021-08-25 00:39:27 Doctor Unassigned, [place] [facility] CONSENT/REFUSAL FOR DIAGNOSIS AND TREATMENT 2021 20:08:24 Doctor Unassigned, [place] [facility] CT ABDOMEN PELVIS WO CONTRAST 2020-12-10 04:09:17 Amber Cardozo [facility] URINE DRUG (IMMUNOASSAY) - 4 ER PANEL 2020-12-10 03:57:00 Amber Cardozo [facility] POCT TEST 2020-12-10 01:46:00 Johnnie Olivarez [facility] LIPASE 2020-12-10 01:44:00 Johnnie Olivarez [facility] COMP. METABOLIC PANEL (25890) 2020-12-10 01:44:00 Johnnie Olviarez [facility] CBC WITH DIFF 2020-12-10 01:44:00 Johnnie Olivarez [facility] URINALYSIS 2020-12-10 01:44:00 Johnnie Olivarez [facility] NOTICE OF PRIVACY PRACTICES 2020-12-09 23:56:35 Doctor Unassigned, [place] [facility] CONSENT/REFUSAL FOR DIAGNOSIS AND TREATMENT 2020-12-09 23:55:46 Doctor Unassigned, [place] [facility] CONSENT/REFUSAL FOR DIAGNOSIS AND TREATMENT 2020-06-16 20:19:26 Doctor Unassigned, [place] [facility] Plan of Care Planned Activity Planned Date Details Comments Source Goal Plan of Care Note [code = 01761-3] Goal Plan of Care Note [code = 04623-2] Goal Plan of Care Note [code = 37955-0] Goal Plan of Care Note [code = 38409-9] Goal Plan of Care Note [code = 66616-0] Goal Plan of Care Note [code = 26043-1] Goal Plan of Care Note [code = 66055-9] Goal Plan of Care Note [code = 11297-0] Goal Plan of Care Note [code = 21492-0] Goal Plan of Care Note [code = 16645-9] Goal Plan of Care Note [code = 67391-3] Goal Plan of Care Note [code = 71173-8] Goal Plan of Care Note [code = 35204-8] Goal Plan of Care Note [code = 62210-8] Goal Plan of Care Note [code = 78703-0] Goal Plan of Care Note [code = 98833-2] Goal Plan of Care Note [code = 61957-8] Goal Plan of Care Note [code = 48356-4] Goal Plan of Care Note [code = 37984-2] Goal Plan of Care Note [code = 60024-3] Goal Plan of Care Note [code = 94885-0] Goal Plan of Care Note [code = 08272-1] Goal Plan of Care Note [code = 94807-6] Goal Plan of Care Note [code = 25131-0] Goal Plan of Care Note [code = 64263-0] Goal Plan of Care Note [code = 66515-9] Encounters Start Date/Time End Date/Time Encounter Type Admission Type Attending [facility] Care Department Encounter ID Source 2022-09-11 22:37:13 Outpatient [facility] [id number] [facility] 2023-03-15 08:16:23 2023-03-15 08:16:23 Outpatient [facility] [id number] Mariusz Dietrich 2022-09-10 12:58:00 2022-09-10 16:23:00 Emergency X SREE LOPEZ [facility] ERT [id number] [facility] 2022-09-10 12:58:00 2022-09-10 16:23:00 Emergency Sree Lopez [facility] [id number] [id number] [facility] 2022-04-02 00:00:00 2022-04-02 00:00:00 Outpatient Visit [id number] 2021-08-24 18:46:00 2021-08-24 21:11:00 Emergency X QIANA VALDEZ [facility] ERT [id number] [facility] 2021-08-24 18:46:00 2021-08-24 21:11:00 Emergency Qiana Valdez [facility] [id number] [id number] [id number] [facility] 2021 15:14:00 2021 16:17:00 Emergency Elliot Fraser [facility] [id number] [id number] [facility] 2021 15:08:00 2021 15:08:00 Emergency X ELLIOT FRASER [facility] ERT [id number] [facility] 2020-12-09 19:02:00 2020-12-10 01:46:00 Emergency Amber Cardozo [facility] [id number] [id number] [id number] [facility] 2020-12-09 19:02:00 2020-12-10 01:46:00 Emergency Amber Cardozo [facility] [id number] [id number] 4.2.7.2.686 [id number] 2020-12-09 18:54:00 2020-12-09 18:54:00 Emergency X [facility] ERT [id number] [facility] 2020-06-16 15:24:00 2020-06-16 17:00:00 Emergency Qiana Valdez [facility] [id number] [id number] 4.2.7.2.686 [id number] [facility] 2020-06-16 15:24:00 2020-06-16 17:00:00 Emergency Qiana Valdez [facility] [id number] [id number] 2020-06-16 15:18:00 2020-06-16 15:18:00 Emergency X [place] ERT [id number] [facility] 2020-01-27 14:14:00 2020-01-27 14:14:00 Emergency X [facility] ERT [id number] [facility] Results Test Description Test Time Test Comments Results Result Co mments Source [facility] THIN[facility], [id number] 09:47:06 * Test Item Value Reference Range Interpretation Comme nts SOURCE: (test code = 8001) Cervical/Endoce rvical SLIDES: (test code = 8011) 1 LMP: (test code = 8021) 10/27/2021 SPECIMEN ADEQUACY: (test code = 61869) (NOTE) Satisfactory for evaluation. Endocervical cells/transformation zone component present. INTERPRETATION: (test code = 31089) NILM/NO EPITH. ABNORMALITY;SEE BELOW --- - NEGATIVE FOR INTRAEPITHELIAL LESION OR MALIGNANCY (NILM) ---- FINAL FINISHER FORGING DIES : (test code = 8101) Nery Macedo LOCATION: (test code = 51585) (NOTE) Specimens proces sed and interpreted at [facility], [address] [place], [place] [address], , CLIA: [id number] CPT: (test code = 8140) (NOTE) [address] UNLESS OTH ERWISE INDICATED, COMPUTER AIDED AND FINAL FINISHER FORGING DIES SCREENING PERFORMED. The Pap test is a screening test with an inherent, but low probability of error. Your patient should be reminded to consult you immediately if she experiences any suspicious signs or symptoms, regardless of her Pap test result. An alternate report format containing images or consolidated prior Pap history is available as applicable. UNLESS OTHERWISE INDICATED, ALL TESTING PERFORMED [facility], [facility]. [address] [place] [address] POWDER PRESS OPERATOR: ELIF MADISON M.D. CLIA NUMBER [id number] [facility] [place]. [id number] PAP TEST, THINPREP, [id number] 00:00:00* Test Item Value Reference Range Interpretation Comme nts SOURCE: (test code = 8001) Cervical/Endocervical SLIDES: (test code = 8011) 1 LMP: (test code = 8021) 10/27/2021 SPECIMEN ADEQUACY: (test code = 85457) (NOTE) INTERPRETATION: (test code = 19505) NILM/NO EPITH. ABNORMALITY;SEE BELOW FINAL FINISHER FORGING DIES: (test code = 8101) Nery Macedo LOCATION: (test code = 46208) (NOTE) CPT: (test code = 8140) (NOTE) PAP TEST, THINPREP, [id number] 00:00:00* Test Item Value Reference Range Interpretation Comme nts SOURCE: (test code = 8001) Cervical/Endocervical SLIDES: (test code = 8011) 1 LMP: (test code = 8021) 10/27/2021 SPECIMEN ADEQUACY: (test code = 23036) (NOTE) INTERPRETATION: (test code = 09998) NILM/NO EPITH. ABNORMALITY;SEE BELOW FINAL FINISHER FORGING DIES: (test code = 8101) Nery Macedo LOCATION: (test code = 84671) (NOTE) CPT: (test code = 8140) (NOTE) VAGINAL PATHOGENS DNA [id number] 14:50:28* Test Item Value Reference Range Interpretation Comme nts DAMIR SPECIES (test code = 72717) NEGATIVE NEGATIVE G. VAGINALIS (test code = 87498) NEGATIVE NEGATIVE T. VAGINALIS (test code = 27062) NEGATIVE NEGATIVE UNLESS OTHERWISE INDICATED, ALL TESTING PERFORMED [facility] [employer] [address] [place] [address] POWDER PRESS OPERATOR: ELIF MADISON M.D. [facility] NUMBER [id number] [facility] [place]. [id number] 06:56:09* Test Item Value Reference Range Interpretation Comme nts RPR RESULT (test code = 3501) NON-REACTIVE NON-REACTIVE RPR TITER (test code = 3500) NOT INDIC. TITER NOT INDIC. HEPATITIS PANEL, [id number] 05:54:17* Test Item Value Reference Range Interpretation Comme nts HEPATITIS A IgM (test code = 84410) NON-REACTIVE NON-REACTIVE HEPATITIS B CORE IgM (test code = 4644) NON-REACTIVE NON-REACTIVE HEPATITIS B SURF AG (test code = 2739) NON-REACTIVE NON-REACTIVE HEPATITIS C ANTIBODY (test code = 4675) NON-REACTIVE NON-REACTIVE INTERPRETATION HEPATITIS A: (test code = 2552) (NOTE) Hepatitis A serology shows no evidence of acute hepatitis A. INTERPRETATION HEPATITIS B: (test code = 64504) (NOTE) Hepatitis B serology shows no evidence of acute hepatitis B andno indication of exposure to hepatitis B virus in the previous jie eight months. INTERPRETATION HEPATITIS C: (test code = 56806) (NOTE) Hepatitis C serology shows no evidence of exposure to hepatitisC virus at this time. It can take up to 12 months after exposure tothe hepatitis C virus for antibodies to become detectable in the blood in certain patients. HIV 1/2 4TH GEN, RFLX [id number] 05:54:17* Test Item Value Reference Range Interpretation Comme nts HIV 1/2 4TH GEN, RFLX CONF ( test code = 3514) NON-REACTIVE NON-REACTIVE HIV AB/AG COMBO RFLX [id number] 00:00:00* Test Item Value Reference Range Interpretation Comme nts HIV 1/2 4TH GEN, RFLX CONF ( test code = 3514) NON-REACTIVE HIV AB/AG COMBO RFLX [id number] 00:00:00* Test Item Value Reference Range Interpretation Comme nts HIV 1/2 4TH GEN, RFLX CONF ( test code = 3514) NON-REACTIVE ACUTE HEPATITIS [id number] 00:00:00* Test Item Value Reference Range Interpretation Comme nts HEPATITIS A IgM (test code = 46587) NON-REACTIVE HEPATITIS B CORE IgM (test c ode = 4644) NON-REACTIVE HEPATITIS B SURF AG (test co de = 2739) NON-REACTIVE HEPATITIS C ANTIBODY (test c ode = 4675) NON-REACTIVE INTERPRETATION HEPATITIS A: (test code = 2552) (NOTE) INTERPRETATION HEPATITIS B: (test code = 71870) (NOTE) INTERPRETATION HEPATITIS C: (test code = 16636) (NOTE) ACUTE HEPATITIS [id number] 00:00:00* Test Item Value Reference Range Interpretation Comme nts HEPATITIS A IgM (test code = 35683) NON-REACTIVE HEPATITIS B CORE IgM (test c ode = 4644) NON-REACTIVE HEPATITIS B SURF AG (test co de = 2739) NON-REACTIVE HEPATITIS C ANTIBODY (test c ode = 4675) NON-REACTIVE INTERPRETATION HEPATITIS A: (test code = 2552) (NOTE) INTERPRETATION HEPATITIS B: (test code = 96447) (NOTE) INTERPRETATION HEPATITIS C: (test code = 57398) (NOTE) [id number] 00:00:00* Test Item Value Reference Range Interpretation Comme nts RPR RESULT (test code = 3501) NON-REACTIVE RPR TITER (test code = 3500) NOT INDIC. TITER [id number] 00:00:00* Test Item Value Reference Range Interpretation Comme nts RPR RESULT (test code = 3501) NON-REACTIVE RPR TITER (test code = 3500) NOT INDIC. TITER [id number] 00:00:00* Test Item Value Reference Range Interpretation Comme nts RPR RESULT (test code = 3501) NON-REACTIVE RPR TITER (test code = 3500) NOT INDIC. TITER VAGINAL PATHOGENS DNA [id number] 00:00:00* Test Item Value Reference Range Interpretation Comme nts DAMIR SPECIES (test code = 21395) NEGATIVE G. VAGINALIS (test code = 72762) NEGATIVE T. VAGINALIS (test code = ) NEGATIVE VAGINAL PATHOGENS DNA [id number] 00:00:00* Test Item Value Reference Range Interpretation Comme nts DAMIR SPECIES (test code = 48155) NEGATIVE G. VAGINALIS (test code = 39946) NEGATIVE T. VAGINALIS (test code = 22991) NEGATIVE SARS-CoV-2 (COVID-19), RT-[id number] 13:12:43* Test Item Value Reference Range Interpretation Comments SARS-CoV-2 INTERPRETATION (test code = 40671) NEGATIVE SEE NOTE SARS-CoV-2 R NA NOT [...] prevalence is high. SOURCE (test code = 16633) NASOPHARYNGEAL Note: Methodolog y is Ronit Jagdeep Real-Time RT-PCR. The expected result or reference range is NEGATIVE (Not Detected). For more information regarding COVID-19 testing to include clinicalinformation, methodology detail, intended use, FDA authorization andrecommended fact sheets for patients or healthcare providers, see [email or web address] Announcement: SARS-CoV-2 (COVID-19) by NAAT at URL below (note,fact sheets are provided by method given in report:[email or web address] Alternatively, see downloadable PDF fact sheet at:[email or web address] UNLESS OTHERWISE INDICATED, ALL TESTING PERFORMED [facility] [employer] [address] [place] [id number] POWDER PRESS OPERATOR: ELIF MADISON M.D. CLIA NUMBER [id number] [place]. [id number] SARS-CoV-2 (COVID-19) by RT-PCR (HIGH RISK)2021-09-16 00:00:00* Test Item Value Reference Range Interpretation Comme nts SARS-CoV-2 INTERPRETATION (test code = 04723) NEGATIVE SOURCE (test code = 89767) NASOPHARYNGEAL SARS-CoV-2 (COVID-19) by RT-PCR (HIGH RISK)2021-09-16 00:00:00* Test Item Value Reference Range Interpretation Comme nts SARS-CoV-2 INTERPRETATION (test code = 09358) NEGATIVE SOURCE (test code = 60296) NASOPHARYNGEAL SARS-CoV-2 (COVID-19), RT-PCR/[id number] 13:37:12* Test Item Value Reference Range Interpretation Comments SARS-CoV-2 INTERPRETATION (test code = 83654) PRESUMPTIVE POSITIVE SEE NOTE A NOTE: PRESUMPTIVE POSITIVE RESULTS ARE MOST CONSISTENT WITH [id number] THE LIMIT OF DETECTION OF THE ASSAY. OTHER UNCOMMON POSSIBLECAUSES ARE A MUTATION IN ONE OF THE TARGET REGIONS, INFECTION WITHANOTHER SARBECOVIRUS OR LABORATORY ISSUES. CORRELATE WITH CLINICALHISTORY AND EPIDEMIOLOGIC FINDINGS. SOURCE (test code = 11073) NASOPHARYNGEAL Note: Methodolog y is Ronit Jagdeep Real-Time RT-PCR. The expected result or reference range is NEGATIVE (Not Detected). For more information regarding COVID-19 testing to include clinicalinformation , methodology detail, intended use, FDA authorization andrecommended fact sheets for patients or healthcare providers, see [employer] Announcement: SARS-CoV-2 (COVID-19) by NAAT at URL below (note,fact sheets are provided by method given in report:[email or web address] [email or web address] Alternatively, see downloadable PDF fact sheet at:[email or web address]/[email or web address] -PCR Note: Methodology is Ronit Jagdeep Real-Time RT-PCR. The expected result or reference range is NEGATIVE (Not Detected). For more information regarding COVID-19 testing to include clinicalinformation , methodology detail, intended use, FDA authorization andrecommended fact sheets for patients or healthcare providers, see [employer] Announcement: SARS-CoV-2 (COVID-19) by NAAT at URL below (note,fact sheets are provided by method given in report:[email or web address] [email or web address] Alternatively, see downloadable PDF fact sheet at:[email or web address] UNLESS OTHERWISE INDICATED, ALL TESTING PERFORMED [facility] [employer] [employer] [address] [place] [address] POWDER PRESS OPERATOR: ELIF MADISON M.D. CLIA NUMBER [id number] [facility] [place]. [id number] SARS-CoV-2 (COVID-19) by RT-PCR (HIGH RISK)2021-09-09 00:00:00* Test Item Value Reference Range Interpretation Comme nts SARS-CoV-2 INTERPRETATION (test code = 17520) PRESUMPTIVE POSITIVE SOURCE (test code = 62119) NASOPHARYNGEAL SARS-CoV-2 (COVID-19) by RT-PCR (HIGH RISK)2021-09-09 00:00:00* Test Item Value Reference Range Interpretation Comme nts SARS-CoV-2 INTERPRETATION (test code = 11771) PRESUMPTIVE POSITIVE SOURCE (test code = 69665) NASOPHARYNGEAL BASIC METABOLIC PANEL (NA, K, CL, CO2, GLUCOSE, BUN, CREATININE, CA)2021-08-25 01:45:53* Test Item Value Reference Range Interpretation Comme nts NA (test code = 6487464716) 136 mmol/L 135-145 K (test code = 3331796111) 4.1 mmol/L 3.5-5.0 CL (test code = 4485913291) 102 mmol/L 98-108 CO2 TOTAL (test code = 1372571358) 29 mmol/L 23-31 AGAP (test code = 4300260756) 2-16 BUN (test code = 1092561596) 9 mg/dL 7-23 GLUCOSE (test code = 4489234055) 92 mg/dL 70-110 CREATININE (test code = 9229771544) 0.54 mg/dL 0.50-1.04 CALCIUM (test code = 3871050532) 8.5 mg/dL 8.6-10.6 L eGFR (test code = 6873434844) mL/min/1.73m2 EMERALD (test code = EMERALD) Association [...] imaging tests). Lab Interpretation (test code = 78868-7) Abnormal [facility] WITH [id number] 01:34:37* Test Item Value Reference Range Interpretation Comme nts WBC (test code = 6690-2) See_Comment [Compliance Control] The system which generated this result transmitted reference range: 4.30 - 11.10 10*3/?L. The reference range was not used to interpret this result as normal/abnormal. RBC (test code = 789-8) See_Comment [Compliance Control] The system which generated this result transmitted [...] 33.7 g/dL 31.6-35.1 RDW-SD (test code = 74816-7) 41.3 fL 39.0-49.9 RDW-CV (test code = 788-0) 12.7 % 12.0-15.5 PLT (test code = 777-3) See_Comment [Automated messa ge] The system which generated this result transmitted reference range: 166 - 358 10*3/?L. The reference range was not used to interpret this result as normal/abnormal. MPV (test code = 99666-3) 9.1 fL 9.5-12.9 L NRBC/100 WBC (test code = 2387668249) See_Comment [Automated [employer] ssage] The system which generated this result transmitted reference range: 0.0 - 10.0 /100 WBCs. The reference range was not used to interpret this result as normal/abnormal. NRBC x10^3 (test code = 4288358675) <0.01 See_Comment [Automated messa ge] The system which generated this result transmitted reference range: 10*3/?L. The reference range was not used to interpret this result as normal/abnormal. GRAN MAT (NEUT) % (test code = 770-8) 49.6 % IMM GRAN % (test code = 6749958074) 0.20 % LYMPH % (test code = 736-9) 39.5 % MONO % (test code = 5905-5) 9.0 % EOS % (test code = 713-8) 1.3 % BASO % (test code = 706-2) 0.4 % GRAN MAT x10^3(ANC) (test code = 1666084746) 2.36 10*3/uL 1.88-7.09 IMM GRAN x10^3 (test code = 3625071653) <0.03 0.00-0.06 LYMPH x10^3 (test code = 731-0) 1.88 10*3/uL 1.32-3.29 MONO x10^3 (test code = 742-7) 0.43 10*3/uL 0.33-0.92 EOS x10^3 (test code = 711-2) 0.06 10*3/uL 0.03-0.39 BASO x10^3 (test code = 704-7) <0.03 0.01-0.07 Lab Interpretation (test code = 90414-4) [facility] [id number] 01:28:00* Test Item Value Reference Range Interpretation Comme nts POCT PREG (test code = 1605) negative On board controls acceptable with C Line (test code = 3574) present POCT PREG LOT # (test code = 3575) [id number] POCT PREG TEST DATE ( test code = 3576) 09/28/2022 Lab Interpretation (test cod e = 15929-3) Normal [facility] (URINE)2020-12-10 05:28:49* Test Item Value Reference Range Interpretation Comme nts AMPHET (test code = 7199177766) Negative Negative Cocaine Metabolite (test code = 4615881206) Negative Negative OPIATES (test code = 5282241484) Presumptive Positive Negative A THC (test code = 0638081843) Negative Negative EMERALD (test code = EMERALD) Urine Drug Cutoff Ranges Amphetamine: ? 1,000 ng/mLCocaine: ? 150 ng/mLOpiates: ? 300 ng/mLCannabinoids: ?50 ng/mL The results are to be used only for medical (i.e., treatment) purposes. Unconfirmed screening results must not be used for non-medical purposes (e.g., employment testing, legal testing). Lab Interpretation (test code = 45221-0) Abnormal [facility] ABDOMEN PELVIS WO [id number] 04:25:17No acute intra-abdominal or pelvic abnormality. No genitourinary stones. Complex right ovarian cyst, likely hemorrhagic cyst measuring 3.8 cm RL: 6200AFC: 93941 Patient name: LORNA HIGHTOWER: 1995 25 years EXAMINATION: CT A BDOMEN [...] subcutaneous softtissues. The lung bases are clear. [facility], Radiant Results Inft User- 12/09/2020 11:26 PM CDTPatient name: LORNA BREWER FRANCISCO [facility]OUR [facility]: 1995 25 years EXAMINATION: CT ABDOMEN PELVIS [...] hemorrhagic cyst aisha suring 3.8 cmRL: 6200AF: 77614 [facility] CenterUrinalysis2021-[facility]-14 02:12:28* Test Item Value Reference Range Interpretation Comme nts APPEARANCE (test code = 9770703073) Hazy Clear A COLOR (test code = 4484381353) Yellow Yellow PH (test code = 7219711143) 4.8-8.0 SP GRAVITY (test code = 3279056252) 1.003-1.030 GLU U QUAL (test code = 3057443733) Normal Normal BLOOD (test code = 6684041057) Negative Negative KETONES (test code = 8932071406) Negative Negative PROTEIN (test code = 2887-8) Negative Negative UROBILIN (test code = 2357957410) 4.0 mg/dL Normal A BILIRUBIN (test code = 5725833162) Negative Negative NITRITE (test code = 6437367925) Negative Negative LEUK HOLLEY (test code = 0553950188) Negative Negative RBC/HPF (test code = 2861433102) See_Comment H [Automated messa ge] The system which generated this result transmitted reference range: 0 - 3 HPF. The reference range was not used to interpret this result as normal/abnormal. WBC/HPF (test code = 2642932589) See_Comment [Automated messa ge] The system which generated this result transmitted reference range: 0 - 5 HPF. The reference range was not used to interpret this result as normal/abnormal. BACTERIA (test code = 5740202904) Negative Negative MUCOUS (test code = 6415699661) Slight Negative LPF A SQ EPITH (test code = 6181475244) HPF YEAST BUD (test code = 2446092042) See_Comment H [Automated messa ge] The system which generated this result transmitted reference range: <=1 HPF. The reference range was not used to interpret this result as normal/abnormal. Lab Interpretation (test code = 23356-1) [facility]normal [facility] Children[facility] Metabolic [id number] 02:09:13* Test Item Value Reference Range Interpretation Comme nts NA (test code = 1177677432) 137 mmol/L 135-145 K (test code = 9364305117) 3.7 mmol/L 3.5-5.0 CL (test code = 8051006628) 103 mmol/L 98-108 CO2 TOTAL (test code = 1601109694) 26 mmol/L 23-31 AGAP (test code = 8561731784) 2-16 BUN (test code = 1664581258) 12 mg/dL 7-23 GLUCOSE (test code = 2662713328) 92 mg/dL 70-110 CREATININE (test code = 6090346055) 0.62 mg/dL 0.50-1.04 TOTAL BILI (test code = 2860307829) 0.4 mg/dL 0.1-1.1 CALCIUM (test code = 0543469099) 8.9 mg/dL 8.6-10.6 T PROTEIN (test code = 9513024805) 7.1 g/dL 6.3-8.2 ALBUMIN (test code = 1061858843) 4.4 g/dL 3.5-5.0 ALK PHOS (test code = 2543258632) 79 U/L 34-122 ALTv (test code = 1742-6) 16 U/L 5-35 AST(SGOT) (test code = 8312438319) 23 U/L 13-40 eGFR (test code = 6178316655) mL/min/1.73m2 EMERALD (test code = EMERALD) Association [...] or urine or abnormalities in imaging tests). [facility] ChildrenLipase, [id number] 02:08:38* Test Item Value Reference Range Interpretation Comme nts LIPASE (test code = 1033650038) 53 U/L 0-220 Lab Interpretation (test cod e = 16901-9) Normal [facility] ChildrenCB with Ljtxowxfakic7616-10-28 02:00:16* Test Item Value Reference Range Interpretation Comme nts WBC (test code = 6690-2) See_Comment [Automated [employer]] The system which generated this result transmitted reference range: 4.30 - 11.10 10*3/?L. The reference range was not used to interpret this result as normal/abnormal. RBC (test code = 789-8) See_Comment [[employer]] The system which generated this result transmitted [...] 33.6 g/dL 31.6-35.1 RDW-SD (test code = 40163-5) 42.6 fL 39.0-49.9 RDW-CV (test code = 788-0) 13.2 % 12.0-15.5 PLT (test code = 777-3) See_Comment [Automated messa ge] The system which generated this result transmitted reference range: 166 - 358 10*3/?L. The reference range was not used to interpret this result as normal/abnormal. MPV (test code = 16053-7) 9.5 fL 9.5-12.9 NRBC/100 WBC (test code = 4597330549) See_Comment [Automated me ssage] The system which generated this result transmitted reference range: 0.0 - 10.0 /100 WBCs. The reference range was not used to interpret this result as normal/abnormal. NRBC x10^3 (test code = 8087265521) <0.01 See_Comment [Automated me ssage] The system which generated this result transmitted reference range: 10*3/?L. The reference range was not used to interpret this result as normal/abnormal. GRAN MAT (NEUT) % (test code = 770-8) 59.6 % IMM GRAN % (test code = 7081837824) 0.30 % LYMPH % (test code = 736-9) 31.8 % MONO % (test code = 5905-5) 6.4 % EOS % (test code = 713-8) 1.4 % BASO % (test code = 706-2) 0.5 % GRAN MAT x10^3(ANC) (test code = 4967986881) 5.15 10*3/uL 1.88-7.09 IMM GRAN x10^3 (test code = 5118077044) 0.03 10*3/uL 0.00-0.06 LYMPH x10^3 (test code = 731-0) 2.75 10*3/uL 1.32-3.29 MONO x10^3 (test code = 742-7) 0.55 10*3/uL 0.33-0.92 EOS x10^3 (test code = 711-2) 0.12 10*3/uL 0.03-0.39 BASO x10^3 (test code = 704-7) 0.04 10*3/uL 0.01-0.07 [facility]PO[facility] [id number] 01:46:00* Test Item Value Reference Range Interpretation Comme nts POCT PREG (test code = 1605) negative On board controls acceptable with C Line (test code = 3574) present Lab Interpretation (test cod e = 12507-8) [facility] ChildrenS[facility] (COVID-19) by RT-PCR (HIGH RISK) 2020-12-03 00:00:00* Test Item Value Reference Range Interpretation Comme nts SARS-CoV-2 INTERPRETATION (t est code = 67780) NEGATIVE SOURCE (test code = 29708) NOT SPECIFIED SARS-CoV-2 (COVID-19) by RT-PCR (HIGH RISK)2020-12-03 00:00:00* Test Item Value Reference Range Interpretation Comme nts SARS-CoV-2 INTERPRETATION (t est code = 80138) NEGATIVE SOURCE (test code = 16149) NOT SPECIFIED PAP TEST, THINPREP, [id number] 00:00:00* Test Item Value Reference Range Interpretation Comme nts SOURCE: (test code = 8001) Cervical/Endocervical SLIDES: (test code = 8011) 1 LMP: (test code = 8021) 03/16/17 SPECIMEN ADEQUACY: (test code = 25723) (NOTE) INTERPRETATION: (test code = 89941) NO EPITHELIAL ABNORMALITY SEE BELOW FINAL FINISHER FORGING DIES: (test code = 8101) LITO Skaggs(ASCP) QC TECHNOLOGIST: (test code = 8111) LITO Woods(ASCP)IAC LOCATION: (test code = 47810) (NOTE) CPT: (test code = 8140) (NOTE) PAP TEST, THINPREP, [id number] 00:00:00* Test Item Value Reference Range Interpretation Comme nts SOURCE: (test code = 8001) Cervical/Endocervical SLIDES: (test code = 8011) 1 LMP: (test code = 8021) 03/16/17 SPECIMEN ADEQUACY: (test code = 22531) (NOTE) INTERPRETATION: (test code = 07219) NO EPITHELIAL ABNORMALITY SEE BELOW FINAL FINISHER FORGING DIES: (test code = 8101) LITO Skaggs(ASCP) QC TECHNOLOGIST: (test code = 8111) LITO Woods(ASCP)IAC LOCATION: (test code = 96127) (NOTE) CPT: (test code = 8140) (NOTE) GC AND CHLAMYDIA AMPLIFIED, [id number] 00:00:00* Test Item Value Reference Range Interpretation Comme nts GONORRHEA, TMA (test code = 58525) NEGATIVE CHLAMYDIA, TMA (test code = 34205) NEGATIVE GC AND CHLAMYDIA AMPLIFIED, [id number] 00:00:00* Test Item Value Reference Range Interpretation Comme nts GONORRHEA, TMA (test code = 37513) NEGATIVE CHLAMYDIA, TMA (test code = 97314) NEGATIVE HIV AB/AG COMBO RFLX [id number] 00:00:00* Test Item Value Reference Range Interpretation Comme nts HIV 1/2 4TH GEN, RFLX CONF ( test code = 3514) NON-REACTIVE HIV AB/AG COMBO RFLX [id number] 00:00:00* Test Item Value Reference Range Interpretation Comme nts HIV 1/2 4TH GEN, RFLX CONF ( test code = 3514) NON-REACTIVE [id number] 00:00:00* Test Item Value Reference Range Interpretation Comme nts RPR RESULT (test code = 3501) NON-REACTIVE RPR TITER (test code = 3500) NOT INDIC. TITER [id number] 00:00:00* Test Item Value Reference Range Interpretation Comme nts RPR RESULT (test code = 3501) NON-REACTIVE RPR TITER (test code = 3500) NOT INDIC. TITER [id number] 00:00:00* Test Item Value Reference Range Interpretation Comme nts RPR RESULT (test code = 3501) NON-REACTIVE RPR TITER (test code = 3500) NOT INDIC. TITER ACUTE HEPATITIS [id number] 00:00:00* Test Item Value Reference Range Interpretation Comme nts HEPATITIS A IgM (test code = 56772) NON-REACTIVE HEPATITIS B CORE IgM (test c ode = 4644) NON-REACTIVE HEPATITIS B SURF AG (test co de = 2739) NON-REACTIVE HEPATITIS C ANTIBODY (test c ode = 4675) NON-REACTIVE INTERPRETATION HEPATITIS A: (test code = 2552) (NOTE) INTERPRETATION HEPATITIS B: (test code = 17466) (NOTE) INTERPRETATION HEPATITIS C: (test code = 64780) (NOTE) ACUTE HEPATITIS [id number] 00:00:00* Test Item Value Reference Range Interpretation Comme nts HEPATITIS A IgM (test code = 08173) NON-REACTIVE HEPATITIS B CORE IgM (test c ode = 4644) NON-REACTIVE HEPATITIS B SURF AG (test co de = 2739) NON-REACTIVE HEPATITIS C ANTIBODY (test c ode = 4675) NON-REACTIVE INTERPRETATION HEPATITIS A: (test code = 2552) (NOTE) INTERPRETATION HEPATITIS B: (test code = 20364) (NOTE) INTERPRETATION HEPATITIS C: (test code = 00041) (NOTE)"
== END 2024-04-12 15:25 | disposition home or self-care (01) ==
LOC: ER 14:32
DX: H10.32 Unspecified acute conjunctivitis, left eye (principal)
CPT/HCPCS: 99281

== ENCOUNTER 2024-07-19 17:06 | Emergency (ER) | payer SELFPAY ==
--- OUTSIDE RECORDS SUMMARY | 2024-07-19 17:10 | XMS REPORT | Continuity of Care Document ---
Author Name Unknown Address [address] [facility] [address] [place] [address] [facility] Address [address] [facility] [address] [place] [address] Care Team Providers Care Net Architect Name Role Phone Annemarie Ireland M.D. Primary Care Physician SREE LOPEZ Attending Clinician Unavailable Sree Lopez MD Attending Clinician [phone] QIANA VALDEZ Attending Clinician Unavailable Qiana Kinney Attending Clinician [phone] Elliot Fletcher Attending Clinician [phone] ELLIOT FRASER Attending Clinician Unavailable Amber Cardozo NP Attending Clinician [phone] Payers Payer Name Policy Type Policy Number Effective Date Expirati on Date Source MEDICAID PENDING PENDING 2021 00:00:00 Problems Condition Name Condition Details Condition Category Status Onset Date Resolution Date Last Treatment Date Treating Clinician Comments Source No known active problems No known active problems Disease [facility] Allergies, Adverse Reactions, Alerts Allergy Name Allergy Type Status Severity Reaction(s) Onset Date Inactive Date Treating Clinician Comments Source NO KNOWN ALLERGIE S Drug Class Active [facility] Social History Social Habit Start Date Stop Date Quantity Comments Source History of tobacco use Cigarette Smoker [facility] Exposure to SARS-CoV-2 (event) 2022-08-31 00:00:00 2022-09-10 12:55:00 Not sure [facility] Cigarettes smoked current (pack per day) - Reported 2017-07-12 00:00:00 2017-07-12 00:00:00 [facility] Tobacco use and exposure 2017-07-12 00:00:00 2017-07-12 00:00:00 Smokeless tobacco non-user [facility] Sex Assigned At 1995 00:00:00 1995 00:00:00 [facility] Smoking Status Start Date Stop Date Source Smokes tobacco daily 2017-07-12 00:00:00 [facility] Medications Ordered Medication Name Filled Medication Name Start Date Stop Date Current Medication? Ordering Clinician Indication Dosage Frequency Signature (SIG) Comments Components Source valacyclovi r 1 gram tablet 05-04 00:00: 00 Yes 1gram Mariusz Dietrich TAKE 1 TABLET BY MOUTH TWICE DAILY 01-02 00:00: 00 Yes Mariusz Dietrich CHLORHEXIDI NE 0.12% ORAL RINSE 01-02 00:00: 00 Yes Mariusz Dietrich TAKE 1 TABLET BY MOUTH ONCE DAILY. TAKE WITH FOOD 01-02 00:00: 00 Yes Mariusz Dietrich TAKE 1 CAPSULE BY MOUTH EVERY 8 HOURS FOR INFECTION FOR 10 DAYS 09-16 00:00: 00 Yes Mariusz Dietrich TAKE 1 TABLET BY MOUTH EVERY 8 HOURS NEEDED 09-16 00:00: 00 Yes Mariusz Dietrich SWISH AND SPIT OUT 15ML FOR 30 SECONDS AFTER BRUSHING 2 TIMES DAILY 09-16 00:00: 00 Yes Mariusz Dietrich LORazepam (ATIVAN) tablet 1 mg 09-10 19:30: 00 09-10 19:43 :00 No 1mg 1 mg, Oral, ONCE, 1 dose, On Tue09/10/22 at 1330, VIVIEN [facility] hydrOXYzine (VISTARIL) 25 mg capsule 09-10 00:00: 00 Yes [id number] 25mg Take 1 capsule by mouth 2 (two) times daily as needed for Anxiety. [facility] TAKE 1 TABLET BY MOUTH TWICE DAILY NEEDED 2023-0 1-06 00:00: 00 Yes Mariusz Adams Karlo Dose Unknown 2022-0 6-02 00:00: 00 Yes Mariusz Adams Karlo Dose Unknown 2022-0 6-02 00:00: 00 Yes Mariusz Adams Karlo Dose Unknown 2022-0 6-02 00:00: 00 No Dose Unknown 2022-0 6-02 00:00: 00 No Dose Unknown 2022-0 4-17 00:00: 00 Yes Mariusz Adams Karlo Dose Unknown 2022-0 4-17 00:00: 00 Yes Mariusz Adams Karlo Dose Unknown 2022-0 4-17 00:00: 00 No Dose Unknown 2022-0 4-17 00:00: 00 No Dose Unknown 2022-0 3-12 00:00: 00 Yes Mariusz Adams Karlo Dose Unknown 2022-0 3-12 00:00: 00 Yes Mariusz Adams Karlo Dose Unknown 2022-0 3-12 00:00: 00 No Dose Unknown 2022-0 3-12 00:00: 00 No Dose Unknown 2022-0 3-11 00:00: 00 Yes Mariusz Adams Karlo Dose Unknown 2022-0 3-11 00:00: 00 Yes Mariusz Adams Karlo Dose Unknown 2022-0 3-11 00:00: 00 No Dose Unknown 2022-0 3-11 00:00: 00 No Dose Unknown 2022-0 3-10 00:00: 00 Yes Mariusz Adams Karlo Dose Unknown 2022-0 3-10 00:00: 00 Yes Mariusz dAams Karlo Dose Unknown 2022-0 3-10 00:00: 00 No Dose Unknown 2022-0 3-10 00:00: 00 No Dose Unknown 2022-0 3-09 00:00: 00 Yes Mariusz Adams Karlo Dose Unknown 2022-0 3-09 00:00: 00 Yes Mariusz F Karlo Dose Unknown 2022-0 3-09 00:00: 00 No Dose Unknown 2022-0 3-09 00:00: 00 No cefTRIAXone (ROCEPHIN) injection 500 mg 2020-08 2 03:45: 00 08-25 02:59 :00 No 500mg 500 mg, Intramuscu lar, ONCE, 1 dose, On Tue08/24/21 at 2145, VIVIEN
Re ason for Anti-Infec tive: Documented Infection< br>Documen héctro Infection Site: Pelvic
Duration of Therapy: 7 days [facility] NaCl 0.9% (NS) bolus infusion 1,000 mL 2020-08 02:00: 00 08-25 02:45 :00 No 1000mL at 999 mL/hr, 1,000 mL, IV Infusion, ONCE, 1 dose, On Tue08/24/21 at 2000, VIVIEN [facility] doxycycline hyclate 100 mg capsule 2020-08 00:00: 00 09-01 05:59 :00 No [id number] 100mg Take 1 capsule by mouth 2 (two) times daily for 7 days. [facility] traMADoL (ULTRAM) tablet 50 mg 03-26 22:15: 00 03-26 21:15 :00 No 50mg 50 mg, Oral, ONCE, 1 dose, Nadia 03/26/21 at 1715, Routine [facility] traMADoL 50 mg tablet 03-26 00:00: 00 Yes [id number] 50mg Take 1 tablet by mouth every 6 (six) hours as needed for Pain (scale 7-10). Indication s: acute pain [facility] clindamycin 150 mg capsule 03-26 00:00: 00 04-06 04:59 :00 No [id number] 450mg Take 3 capsules by mouth 3 (three) times daily for 10 days. [facility] dicyclomine (BENTYL) injection 20 mg 12-10 13:00: 00 Yes 20mg 20 mg, Intramuscu lar, QID, First dose on Tue12/10/20 at 0800, Until Discontinu ed, Routine [facility] ketorolac (TORADOL) injection 30 mg 12-10 04:45: 00 12-10 03:51 :00 No 30mg 30 mg, Slow IV Push, ONCE, 1 dose, 4/13/21 at 2345, Routine
member services coordinator approving Restricted medication : AMBER CARDOZO [facility] dicyclomine 20 mg tablet 12-10 00:00: 00 Yes [id number] 20mg Take 1 tablet by mouth 4 (four) times daily as needed for Abdominal pain. [facility] indomethaci n 50 mg capsule 12-10 00:00: 00 12-18 04:59 :00 No [id number] 50mg Take 1 capsule by mouth 2 (two) times daily with meals for 7 days. [facility] Flonase Allergy Relief 50 mcg/actuati on nasal spray,suspe nsion 10-31 00:00: 00 Yes 12mcg/a ctuatio n Mariusz Dietrich Bromfed DM 2 mg-30 mg-10 mg/5 mL oral syrup 10-31 00:00: 00 Yes 75mg/5 mL Mariusz Dietrich Flonase Allergy Relief 50 mcg/actuati on nasal spray,suspe nsion 10-31 00:00: 00 No 12mcg/a ctuatio n Bromfed DM 2 mg-30 mg-10 mg/5 mL oral syrup 10-31 00:00: 00 No 75mg/5 mL HYDROcodone -acetaminop hen (NORCO 5) 5-325 mg tablet 1 tablet 2019-08 22:00: 00 06-16 21:06 :00 No 1{tbl} 1 tablet, Oral, ONCE, 1 dose, Tue06/16/20 at 1700, VIVIEN [facility] ketorolac (TORADOL) injection 60 mg 2019-08 22:00: 00 06-16 21:07 :00 No 60mg 60 mg, Intramuscu lar, ONCE, 1 dose, Tue06/16/20 at 1700, VIVIEN
Fa culty member approving Restricted medication : EMERGENCY ROOM, [facility] penicillin v potassium 500 mg tablet 2019-08 00:00: 00 06-24 04:59 :00 No [id number] 500mg Take 1 tablet by mouth 4 (four) times daily for 7 days. [facility] acetaminoph en-codeine 300-30 mg tablet 2019-08 00:00: 00 06-24 04:59 :00 No [id number] 1{tbl} Take 1 tablet by mouth every 6 (six) hours as needed for Pain (scale 7-10) for up to 7 days. Indication s: acute pain [facility] codeine-gua ifenesin 10-100 mg/5 mL solution 2016-08 00:00: 00 03-26 00:00 :00 No 5mL Take 5 mL by mouth every 6 (six) hours as needed for Cough. [facility] ondansetron 4 mg disintegrat ing tablet 2016-08 00:00: 00 03-26 00:00 :00 No 4mg Take 1 tablet by mouth every 8 (eight) hours as needed for Nausea and Vomiting (N/V). [facility] ibuprofen 800 mg tablet 12-29 00:00: 00 Yes 1mg Mariusz Dietrich ibuprofen 800 mg tablet 12-29 00:00: 00 No 1mg Immunizations Ordered Immunization Name Filled Immunization Name Date Status Comments Source SARS-COV-2 COVID-19 PFIZER VACCINE 2021-01-17 00:00:00 Completed [facility] SARS-COV-2 COVID-19 PFIZER VACCINE 2021-01-17 00:00:00 Completed [facility] SARS-COV-2 COVID-19 PFIZER VACCINE 2021-01-17 00:00:00 Completed [facility] SARS-COV-2 COVID-19 PFIZER VACCINE 2020-12-20 00:00:00 Completed [facility] SARS-COV-2 COVID-19 PFIZER VACCINE 2020-12-20 00:00:00 Completed [facility] SARS-COV-2 COVID-19 PFIZER VACCINE 2020-12-20 00:00:00 Completed [facility] Influenza, seasonal, inj Influenza, seasonal, inj 2017-08-24 00:00:00 Completed Mariusz Dietrich Influenza, seasonal, inj 2017-08-24 00:00:00 Completed Hep A-Hep B Hep A-Hep B 2017-04-06 00:00:00 Completed Mariusz Dietrich Hep A-Hep B 2017-04-06 00:00:00 Completed Vital Signs Vital Name Observation Time Observation Value Comments S celio Systolic blood pressure 2022-09-10 18:57:00 180 mm[Hg] [facility] Diastolic blood pressure 2022-09-10 18:57:00 115 mm[Hg] [facility] Heart rate 2022-09-10 18:57:00 90 /min General acute hospital Body temperature 2022-09-10 18:57:00 36.83 Ariane [facility] Respiratory rate 2022-09-10 18:57:00 20 /min [facility] Body height 2022-09-10 18:57:00 157.5 cm [facility] Body weight 2022-09-10 18:57:00 79.379 kg [facility] BMI 2022-09-10 18:57:00 32.01 kg/m2 [facility] Oxygen saturation in Arterial blood by Pulse oximetry 2022-09-10 18:57:00 99 /min [facility] Systolic blood pressure 2021-08-25 02:00:00 120 mm[Hg] [facility] Diastolic blood pressure 2021-08-25 02:00:00 82 mm[Hg] [facility] Heart rate 2021-08-25 02:00:00 82 /min General acute hospital Respiratory rate 2021-08-25 02:00:00 15 /min [facility] Oxygen saturation in Arterial blood by Pulse oximetry 2021-08-25 02:00:00 100 /min [facility] Body temperature 2021-08-25 00:45:00 37.17 Ariane [facility] Body weight 2021-08-25 00:45:00 86.183 kg [facility] BMI 2021-08-25 00:45:00 34.75 kg/m2 [facility] Systolic blood pressure 2021 20:13:00 108 mm[Hg] [facility] Diastolic blood pressure 2021 20:13:00 86 mm[Hg] [facility] Heart rate 2021 20:13:00 90 /min [facility] Body temperature 2021 20:13:00 37.5 Ariane [facility] Respiratory rate 2021 20:13:00 18 /min [facility] Body height 2021 20:13:00 157.5 cm [facility] Body weight 2021 20:13:00 88.905 kg [facility] BMI 2021 20:13:00 35.85 kg/m2 [facility] Oxygen saturation in Arterial blood by Pulse oximetry 2021 20:13:00 100 /min [facility] Systolic blood pressure 2020-12-10 00:00:00 120 mm[Hg] [facility] Diastolic blood pressure 2020-12-10 00:00:00 74 mm[Hg] [facility] Heart rate 2020-12-10 00:00:00 71 /min [facility] Body temperature 2020-12-10 00:00:00 37.5 Ariane [facility] Respiratory rate 2020-12-10 00:00:00 18 /min [facility] Body weight 2020-12-10 00:00:00 86.183 kg [facility] BMI 2020-12-10 00:00:00 34.75 kg/m2 [facility] Oxygen saturation in Arterial blood by Pulse oximetry 2020-12-10 00:00:00 97 /min [facility] Systolic blood pressure 2020-12-10 00:00:00 120 mm[Hg] [facility] Diastolic blood pressure 2020-12-10 00:00:00 74 mm[Hg] [facility] Heart rate 2020-12-10 00:00:00 71 /min [facility] Body temperature 2020-12-10 00:00:00 37.5 Ariane [facility] Respiratory rate 2020-12-10 00:00:00 18 /min [facility] Body weight 2020-12-10 00:00:00 86.183 kg [facility] BMI 2020-12-10 00:00:00 34.75 kg/m2 [facility] Oxygen saturation in Arterial blood by Pulse oximetry 2020-12-10 00:00:00 97 /min [facility] Systolic blood pressure 2020-06-16 20:21:00 132 mm[Hg] [facility] Diastolic blood pressure 2020-06-16 20:21:00 74 mm[Hg] [facility] Heart rate 2020-06-16 20:21:00 82 /min [facility] Body temperature 2020-06-16 20:21:00 36.72 Ariane [facility] Respiratory rate 2020-06-16 20:21:00 20 /min [facility] Body height 2020-06-16 20:21:00 157.5 cm [facility] Body weight 2020-06-16 20:21:00 86.183 kg [facility] BMI 2020-06-16 20:21:00 34.75 kg/m2 [facility] Oxygen saturation in Arterial blood by Pulse oximetry 2020-06-16 20:21:00 100 /min [facility] Systolic blood pressure 2020-06-16 20:21:00 132 mm[Hg] [facility] Diastolic blood pressure 2020-06-16 20:21:00 74 mm[Hg] [facility] Heart rate 2020-06-16 20:21:00 82 /min [facility] Body temperature 2020-06-16 20:21:00 36.72 Ariane [facility] Respiratory rate 2020-06-16 20:21:00 20 /min [facility] Body height 2020-06-16 20:21:00 157.5 cm [facility] Body weight 2020-06-16 20:21:00 86.183 kg [facility] BMI 2020-06-16 20:21:00 34.75 kg/m2 [facility] Oxygen saturation in Arterial blood by Pulse oximetry 2020-06-16 20:21:00 100 /min [facility] BP Systolic 2024-05-25 11:34:00 135 mm[Hg] Step hen F Karlo BP Diastolic 2024-05-25 11:34:00 110 mm[Hg] Clay phen F Karlo Weight Measured 2024-05-25 11:34:00 168.00 pounds Mariusz F Karlo Height Measured 2024-05-25 11:34:00 62.00 inches Mariusz F Karlo Body Temperature 2024-05-25 11:34:00 97.90 degrees Mariusz F Karlo Heart Rate 2024-05-25 11:34:00 86.00 /min Emeli en F Karlo Respiratory Rate 2024-05-25 11:34:00 18.00 /min Mariusz F Karlo BP Systolic 2024-05-07 16:51:00 124 mm[Hg] Step hen F Karlo BP Diastolic 2024-05-07 16:51:00 85 mm[Hg] Clay phen F Karlo Weight Measured 2024-05-07 16:51:00 168.60 pounds Mariusz F Karlo Height Measured 2024-05-07 16:51:00 62.00 inches Mariusz F Karlo Body Temperature 2024-05-07 16:51:00 98.20 degrees Mariusz F Karlo Heart Rate 2024-05-07 16:51:00 68.00 /min Emeli en F Karlo Respiratory Rate 2024-05-07 16:51:00 17.00 /min Mariusz F Karlo Body Temperature 2024-05-01 09:03:00 97.60 degrees Mariusz F Karlo Heart Rate 2024-05-01 09:03:00 85.00 /min Emeli en F Karlo Respiratory Rate 2024-05-01 09:03:00 19.00 /min Mariusz F Karlo BP Systolic 2024-05-01 09:03:00 120 mm[Hg] Step hen F Karlo BP Diastolic 2024-05-01 09:03:00 76 mm[Hg] Clay phen F Karlo Weight Measured 2024-05-01 09:03:00 168.60 pounds Mariusz F Karlo Height Measured 2024-05-01 09:03:00 62.00 inches Mariusz F Karlo BP Systolic 2021-11-04 11:02:00 108 mm[Hg] Step hen F Karlo BP Diastolic 2021-11-04 11:02:00 68 mm[Hg] [place] phen F Karlo Weight Measured 2021-11-04 11:02:00 201.20 pounds Mariusz F Karlo Height Measured 2021-11-04 11:02:00 62.00 inches Mariusz F Karlo Body Temperature 2021-11-04 11:02:00 98.00 degrees Mariusz F Karlo Heart Rate 2021-11-04 11:02:00 83.00 /min Emeli en F Karlo Respiratory Rate 2021-11-04 11:02:00 Mariusz F Karlo BP Systolic 2021-09-08 14:27:00 Step hen F Karlo BP Diastolic 2021-09-08 14:27:00 Clay phen F Karlo Weight Measured 2021-09-08 14:27:00 180.00 pounds Mariusz F Karlo Height Measured 2021-09-08 14:27:00 62.00 inches Mariusz F Karlo Body Temperature 2021-09-08 14:27:00 Mariusz F Karlo Heart Rate 2021-09-08 14:27:00 Emeli en F Karlo Respiratory Rate 2021-09-08 14:27:00 Mariusz F Karlo BP Systolic 2018-08-15 11:28:00 117 mm[Hg] Step hen F Karlo BP Diastolic 2018-08-15 11:28:00 70 mm[Hg] Clay phen F Karlo Weight Measured 2018-08-15 11:28:00 175.60 pounds Mariusz F Karlo Height Measured 2018-08-15 11:28:00 62.00 inches Mariusz F Karlo Body Temperature 2018-08-15 11:28:00 98.60 degrees Mariusz F Karlo Heart Rate 2018-08-15 11:28:00 84.00 /min Emeli en F Karlo Respiratory Rate 2018-08-15 11:28:00 16.00 /min Mariusz F Karlo BP Systolic 2018-08-15 11:25:00 117 mm[Hg] Step hen F Karlo BP Diastolic 2018-08-15 11:25:00 70 mm[Hg] [place] phen F Karlo Weight Measured 2018-08-15 11:25:00 175.60 pounds Mariusz F Karlo Height Measured 2018-08-15 11:25:00 62.00 inches Mariusz F Karlo Body Temperature 2018-08-15 11:25:00 98.60 degrees Mariusz F Karlo Heart Rate 2018-08-15 11:25:00 84.00 /min Emeli en F Karlo Respiratory Rate 2018-08-15 11:25:00 16.00 /min Mariusz F Karlo BP Systolic 2017-08-24 11:17:00 131 mm[Hg] Step hen F Karlo BP Diastolic 2017-08-24 11:17:00 77 mm[Hg] [place] phen F Karlo Weight Measured 2017-08-24 11:17:00 155.80 pounds Mariusz F Karlo Height Measured 2017-08-24 11:17:00 62.00 inches Mariusz F Karlo Body Temperature 2017-08-24 11:17:00 98.40 degrees Mariusz F Karlo Heart Rate 2017-08-24 11:17:00 81.00 /min Emeli en F Karlo Respiratory Rate 2017-08-24 11:17:00 17.00 /min Mariusz F Karlo BP Systolic 2017-04-04 10:43:00 119 mm[Hg] Step hen F Karlo BP Diastolic 2017-04-04 10:43:00 79 mm[Hg] [place] phen F Karlo Weight Measured 2017-04-04 10:43:00 155.40 pounds Mariusz F Karlo Height Measured 2017-04-04 10:43:00 62.00 inches Mariusz F Karlo Body Temperature 2017-04-04 10:43:00 98.20 degrees Mariusz F Karlo Heart Rate 2017-04-04 10:43:00 77.00 /min Emeli en F Karlo Respiratory Rate 2017-04-04 10:43:00 15.00 /min Mariusz F Karlo BP Systolic 2017-01-21 13:40:00 121 mm[Hg] Step hen F Karlo BP Diastolic 2017-01-21 13:40:00 81 mm[Hg] [place] phen F Karlo Weight Measured 2017-01-21 13:40:00 156.60 pounds Mariusz F Karlo Height Measured 2017-01-21 13:40:00 62.00 inches Mariusz F Karlo Body Temperature 2017-01-21 13:40:00 99.20 degrees Mariusz F Karlo Heart Rate 2017-01-21 13:40:00 78.00 /min Emeli en F Karlo Respiratory Rate 2017-01-21 13:40:00 16.00 /min Mariusz F Karlo BP Systolic 2016-01-02 11:57:00 111 mm[Hg] Step hen F Karlo BP Diastolic 2016-01-02 11:57:00 71 mm[Hg] [place] phen F Karlo Weight Measured 2016-01-02 11:57:00 178.00 pounds Mariusz F Karlo Height Measured 2016-01-02 11:57:00 62.50 inches Mariusz F Karlo Body Temperature 2016-01-02 11:57:00 98.10 degrees Mariusz F Karlo Heart Rate 2016-01-02 11:57:00 69.00 /min Emeli en F Karlo Respiratory Rate 2016-01-02 11:57:00 16.00 /min Mariusz F Karlo BP Systolic 2016-01-02 11:50:00 111 mm[Hg] Step hen F Karlo BP Diastolic 2016-01-02 11:50:00 71 mm[Hg] [place] phen F Karlo Weight Measured 2016-01-02 11:50:00 178.00 pounds Mariusz F Karlo Height Measured 2016-01-02 11:50:00 62.50 inches Mariusz F Karlo Body Temperature 2016-01-02 11:50:00 98.10 degrees Mariusz F Karlo Heart Rate 2016-01-02 11:50:00 69.00 /min Emeli en F Karlo Respiratory Rate 2016-01-02 11:50:00 16.00 /min Mariusz F Karlo BP Systolic 2015-12-30 15:40:00 112 mm[Hg] BP Diastolic 2015-12-30 15:40:00 74 mm[Hg] Weight Measured 2015-12-30 15:40:00 176.60 pounds Height Measured 2015-12-30 15:40:00 62.50 inches Body Temperature 2015-12-30 15:40:00 98.30 degrees Heart Rate 2015-12-30 15:40:00 84.00 /min Respiratory Rate 2015-12-30 15:40:00 16.00 /min Procedures Procedure Date / Time Performed Performing Clinician Source POCT TEST 2022-09-10 19:42:00 Sree Lopez [facility] URINE DRUG (IMMUNOASSAY) - COMPREHENSIVE DRUG SCREEN 2022-09-10 19:41:00 Sree Lopez [facility] URINALYSIS 2022-09-10 19:41:00 Sree Lopez [facility] CONSENT/REFUSAL FOR DIAGNOSIS AND TREATMENT 2022-09-10 18:46:57 Doctor Unassigned, [place] [facility] POCT TEST 2021-08-25 01:28:00 Aviva Valdez [facility] BASIC METABOLIC PANEL (NA, K, CL, CO2, GLUCOSE, BUN, CREATININE, CA) 2021-08-25 01:26:00 Qiana Valdez [facility] CBC WITH DIFF 2021-08-25 01:26:00 Qiana Valdez [facility] URINALYSIS 2021-08-25 01:26:00 Qiana Valdez [facility] CONSENT/REFUSAL FOR DIAGNOSIS AND TREATMENT 2021-08-25 00:39:27 Doctor Unassigned, [place] [facility] CONSENT/REFUSAL FOR DIAGNOSIS AND TREATMENT 2021 20:08:24 Doctor Unassigned, [place] [facility] CT ABDOMEN PELVIS WO CONTRAST 2020-12-10 04:09:17 Amber Cardozo [facility] URINE DRUG (IMMUNOASSAY) - 4 ER PANEL 2020-12-10 03:57:00 Amber Cardozo [facility] POCT TEST 2020-12-10 01:46:00 Johnnie Olivarez [facility] LIPASE 2020-12-10 01:44:00 Johnnie Olivarez [facility] COMP. METABOLIC PANEL (22714) 2020-12-10 01:44:00 Johnnie Olivarez [facility] CBC WITH DIFF 2020-12-10 01:44:00 Johnnie Olivarez [facility] URINALYSIS 2020-12-10 01:44:00 Johnnie Olivarez [facility] NOTICE OF PRIVACY PRACTICES 2020-12-09 23:56:35 Doctor Unassigned, [place] [facility] CONSENT/REFUSAL FOR DIAGNOSIS AND TREATMENT 2020-12-09 23:55:46 Doctor Unassigned, [place] [facility] CONSENT/REFUSAL FOR DIAGNOSIS AND TREATMENT 2020-06-16 20:19:26 Doctor Unassigned, [place] [facility] Plan of Care Planned Activity Planned Date Details Comments Source Goal Plan of Care Note [code = 61259-1] Goal Plan of Care Note [code = 47820-0] Goal Plan of Care Note [code = 97279-9] Goal Plan of Care Note [code = 51523-8] Goal Plan of Care Note [code = 56000-1] Goal Plan of Care Note [code = 22079-7] Goal Plan of Care Note [code = 00591-1] Goal Plan of Care Note [code = 69426-6] Goal Plan of Care Note [code = 50177-7] Goal Plan of Care Note [code = 76583-8] Goal Plan of Care Note [code = 04378-3] Goal Plan of Care Note [code = 84215-7] Goal Plan of Care Note [code = 01548-4] Goal Plan of Care Note [code = 91236-9] Goal Plan of Care Note [code = 52838-3] Goal Plan of Care Note [code = 24733-1] Goal Plan of Care Note [code = 88876-9] Goal Plan of Care Note [code = 20716-0] Goal Plan of Care Note [code = 37696-6] Goal Plan of Care Note [code = 07645-8] Goal Plan of Care Note [code = 39452-3] Goal Plan of Care Note [code = 52826-1] Goal Plan of Care Note [code = 95001-0] Goal Plan of Care Note [code = 50420-3] Goal Plan of Care Note [code = 28679-6] Goal Plan of Care Note [code = 61078-8] Encounters Start Date/Time End Date/Time Encounter Type Admission Type Attending [facility] Facility Care Department Encounter ID Source 2022-09-11 22:37:13 Outpatient [facility] [id number] [facility] 2024-05-25 11:29:14 2024-05-25 11:29:14 Outpatient [facility] LEÓN [id number] Mariusz Dietrich 2024-05-25 00:00:00 2024-05-25 00:00:00 Outpatient Visit [facility] [id number] Mariusz Dietrich 2024-05-07 16:45:19 2024-05-07 16:45:19 Outpatient ROMELIA LEÓN [id number] Mariusz Dietrich 2024-05-07 00:00:00 2024-05-07 00:00:[address] [facility] [id number] Mariusz Dietrich 2024-05-01 09:03:27 2024-05-01 09:03:[address] [facility] [id number] Mariusz Dietrich 2024-05-01 00:00:00 2024-05-01 00:00:[address] [facility] [id number] Mariusz Dietrich 2024-04-30 13:03:22 2024-04-30 13:03:22 Outpatient [facility] [id number] Mariusz Dietrich 2023-03-15 08:16:23 2023-03-15 08:16:[address] [facility] [id number] Mariusz Adams [place] 2022-09-10 12:58:00 2022-09-10 16:23:00 Emergency X SREE LOPEZ [facility] ERT [id number] [facility] 2022-09-10 12:58:00 2022-09-10 16:23:00 Emergency Sree Lopez [facility] 1.2.840.114 350.1.13.10 4.2.7.2.686 [id number] [facility] 2022-04-02 00:00:00 2022-04-02 00:00:00 Outpatient Visit [id number] 2021-08-24 18:46:00 2021-08-24 21:11:00 Emergency X QIANA VALDEZ [facility] ERT [id number] [facility] 2021-08-24 18:46:00 2021-08-24 21:11:00 Emergency Qiana Valdez [facility] 1.2.840.114 350.1.13.10 4.2.7.2.686 [id number] [id number] [facility] 2021 15:14:00 2021 16:17:00 Emergency [facility] 1.2.840.114 350.1.13.10 4.2.7.2.686 [id number] [facility] 2021 15:08:00 2021 15:08:00 Emergency X ELLITO FRASER [facility] ERT [id number] [facility] 2020-12-09 19:02:00 2020-12-10 01:46:00 Emergency [facility] 1.2.840.114 350.1.13.10 4.2.7.2.686 [id number] 2020-12-09 19:02:00 2020-12-10 01:46:00 Emergency [facility] 1.2.840.114 350.1.13.10 4.2.7.2.686 [id number] [id number] [facility] 2020-12-09 18:54:00 2020-12-09 18:54:[address] [facility] ERT [id number] [facility] 2020-06-16 15:24:00 2020-06-16 17:00:00 Emergency [facility] 1.2.840.114 350.1.13.10 4.2.7.2.686 [id number] [id number] 2020-06-16 15:24:00 2020-06-16 17:00:00 Emergency [facility] 1.2.840.114 350.1.13.10 4.2.7.2.686 [id number] [facility] 2020-06-16 15:18:00 2020-06-16 15:18:[address] [facility] ERT [id number] [facility] 2020-01-27 14:14:00 2020-01-27 14:14:[address] [facility] ERT [id number] [facility] Results Test Description Test Time Test Comments Results Result Co mments Source Mariusz Adams AustinCT/NG, NAAT, [id number] 23:09:43* Test Item Value Reference Range Interpretation Comme nts CHLAMYDIA, NAAT, URINE (test code = 68184) NEGATIVE NEGATIVE Testing is perfo rmed with Ronit JAGDEEP 6800/8800 systems usingreal-time polymerase chain reaction (PCR) method. A negative result does not exclude low level infection, specimensampling error, or collection error. GONORRHEA, NAAT, URINE (test code = 20359) NEGATIVE NEGATIVE Testing is perfo rmed with Ronit JAGDEEP 6800/8800 systems usingreal-time polymerase chain reaction (PCR) method. A negative result does not exclude low level infection, specimensampling error, or collection error. CT/NG, NAAT, [id number] 00:00:00* Test Item Value Reference Range Interpretation Comme nts CHLAMYDIA, NAAT, URINE (test code = 30607) NEGATIVE GONORRHEA, NAAT, URINE (test code = 88151) NEGATIVE Mariusz DietrichCT/NG, NAAT, [id number] 00:00:00* Test Item Value Reference Range Interpretation Comme nts CHLAMYDIA, NAAT, URINE (test code = 77123) NEGATIVE GONORRHEA, NAAT, URINE (test code = 88092) NEGATIVE Mariusz DietrichHERPES SIMPLEX AB, [id number] 18:44:31* Test Item Value Reference Range Interpretation Comme nts HERPES SIMPLEX AB, IgM (test code = 18026) 1.97 INDEX SEE BELOW H IMPORTANT NOTE: HSV IgM ASSAYS ARE NOT TYPE-SPECIFIC. THE BIOLOGICALIgM RESPONSE WITH PRIMARY INFECTIONS IS VARIABLE AND MAY BEUNDETECTABLE; WITH RECURRENT INFECTIONS IgM MAY OR MAY NOT BEDETECTED. FALSE POSITIVE RESULTS UNRELATED TO HSV INFECTION CAN OCCURWITH HSV IgM ASSAYS. ALL RESULTS SHOULD BE REVIEWED IN CLINICALCONTEXT, AND COMPARISON TO ACUTE OR CONVALESCENT TYPE-SPECIFIC [id number] HSV2 IgG ASSAYS SHOULD BE CONSIDERED. INTERPRETATION UNITS RANGE ----- ----- NEGATIVE INDEX <=0.89 EQUIVOCAL INDEX 0.90-1.09 POSITIVE INDEX >=1.10 HEPATITIS PANEL, [id number] 05:46:11* Test Item Value Reference Range Interpretation Comments HEPATITIS A TOTAL AB (test code = 2725) REACTIVE NON-REACTIVE A HEPATITIS B SURF AG (test code = 2739) NON-REACTIVE NON-REACTIVE HEP B CORE TOTAL AB (test code = 2729) NON-REACTIVE NON-REACTIVE HEPATITIS B SURFACE AB (test code = 2737) REACTIVE NON-REACTIVE A HEPATITIS C ANTIBODY (test code = 4675) NON-REACTIVE NON-REACTIVE INTERPRETATION HEPATITIS A: (test code = 2552) (NOTE) Hepatitis A sero logy consistent with past exposure or previousvaccination to hepatitis A virus. No evidence of current acutehepatitis A infection. INTERPRETATION HEPATITIS B: (test code = 95539) (NOTE) Hepatitis B sero logy consistent with immunity to hepatitis Bfrom previous hepatitis B vaccination. INTERPRETATION HEPATITIS C: (test code = 33584) (NOTE) Hepatitis C sero logy shows no evidence of exposure to hepatitisC virus at this time. It can take up to 12 months after exposure tothe hepatitis C virus for antibodies to become detectable in the blood in certain patients. HERPES SIMPLEX 1/2 AB, IgG [id number] 05:46:11* Test Item Value Reference Range Interpretation Comme nts HERPES SIMPLEX 1 AB, IgG (test code = 30613) 0.020 INDEX SEE BELOW INTERPRETATION U NITS RANGE ----- ----- NON-REACTIVE INDEX <1.000 REACTIVE INDEX >=1.000 HERPES SIMPLEX 2 AB, IgG (test code = 64379) 419.000 INDEX SEE BELOW H INTERPRETATION U NITS RANGE ----- ----- NON-REACTIVE INDEX <1.000 REACTIVE INDEX >=1.000 HIV 1/2 4TH GEN, RFLX [id number] 05:46:11* Test Item Value Reference Range Interpretation Comme nts HIV 1/2 4TH GEN, RFLX CONF ( test code = 3514) NON-REACTIVE NON-REACTIVE HEPATITIS A [id number] 05:46:11* Test Item Value Reference Range Interpretation Comme nts HEPATITIS A IgM (test code = 2728) NON-REACTIVE NON-REACTIVE UNLESS OTHERW ISE INDICATED, ALL TESTING PERFORMED AT [facility] [address] [place] [address] REGIONAL ENGAGEMENT CONSULTANT: ALONSO SOTO M.D. [place] NUMBER [id number] [facility] [place]. [id number] 04:26:03* Test Item Value Reference Range Interpretation Comme nts RPR RESULT (test code = 3501) NON-REACTIVE NON-REACTIVE RPR TITER (test code = 3500) NOT INDIC. TITER NOT INDIC. HEPATITIS PROFILE (A,B,C)2024-05-02 00:00:00* Test Item Value Reference Range Interpretation Comme nts HEPATITIS A TOTAL AB (test c ode = 2725) REACTIVE HEPATITIS B SURF AG (test co de = 2739) NON-REACTIVE HEP B CORE TOTAL AB (test co de = 2729) NON-REACTIVE HEPATITIS B SURFACE AB (test code = 2737) REACTIVE HEPATITIS C ANTIBODY (test c ode = 4675) NON-REACTIVE INTERPRETATION HEPATITIS A: (test code = 2552) (NOTE) INTERPRETATION HEPATITIS B: (test code = 45893) (NOTE) INTERPRETATION HEPATITIS C: (test code = 99491) (NOTE) Mariusz DietrichHERPES SIMPLEX AB, [id number] 00:00:00* Test Item Value Reference Range Interpretation Comme nts HERPES SIMPLEX AB, IgM (test code = 09501) 1.97 INDEX Mariusz DietrichHERPES SIMPLEX 1/2 ANTIBODY, [id number] 00:00:00* Test Item Value Reference Range Interpretation Comme nts HERPES SIMPLEX 1 AB, IgG (te st code = 46070) 0.020 INDEX HERPES SIMPLEX 2 AB, IgG (te st code = 24981) 419.000 INDEX Mariusz [id number] 00:00:00* Test Item Value Reference Range Interpretation Comme nts RPR RESULT (test code = 3501) NON-REACTIVE RPR TITER (test code = 3500) NOT INDIC. TITER Mariusz DietrichHIV 1/2 4TH GEN, RFLX [id number] 00:00:00* Test Item Value Reference Range Interpretation Comme nts HIV 1/2 4TH GEN, RFLX CONF ( test code = 3514) NON-REACTIVE Mariusz DietrichHEPATITIS A IgM [REFLEX]2024-05-02 00:00:00* Test Item Value Reference Range Interpretation Comme nts HEPATITIS A IgM (test code = 2728) NON-REACTIVE Mariusz DietrichHEPATITIS PROFILE (A,B,C)2024-05-02 00:00:00* Test Item Value Reference Range Interpretation Comme nts HEPATITIS A TOTAL AB (test c ode = 2725) REACTIVE HEPATITIS B SURF AG (test co de = 2739) NON-REACTIVE HEP B CORE TOTAL AB (test co de = 2729) NON-REACTIVE HEPATITIS B SURFACE AB (test code = 2737) REACTIVE HEPATITIS C ANTIBODY (test c ode = 4675) NON-REACTIVE INTERPRETATION HEPATITIS A: (test code = 2552) (NOTE) INTERPRETATION HEPATITIS B: (test code = 17241) (NOTE) INTERPRETATION HEPATITIS C: (test code = 08615) (NOTE) Mariusz DietrichHERPES SIMPLEX AB, [id number] 00:00:00* Test Item Value Reference Range Interpretation Comme nts HERPES SIMPLEX AB, IgM (test code = 73948) 1.97 INDEX Mariusz DietrichHERPES SIMPLEX 1/2 ANTIBODY, [id number] 00:00:00* Test Item Value Reference Range Interpretation Comme nts HERPES SIMPLEX 1 AB, IgG (te st code = 30198) 0.020 INDEX HERPES SIMPLEX 2 AB, IgG (te st code = 90311) 419.000 INDEX Mariusz Adams [id number] 00:00:00* Test Item Value Reference Range Interpretation Comme nts RPR RESULT (test code = 3501) NON-REACTIVE RPR TITER (test code = 3500) NOT INDIC. TITER Mariusz Adams AustinHIV 1/2 4TH GEN, RFLX [id number] 00:00:00* Test Item Value Reference Range Interpretation Comme nts HIV 1/2 4TH GEN, RFLX CONF ( test code = 3514) NON-REACTIVE Mariusz RamPATITIS A IgM [REFLEX]2024-05-02 00:00:00* Test Item Value Reference Range Interpretation Comme nts HEPATITIS A IgM (test code = 2728) NON-REACTIVE Mariusz F AustinPOCT [id number] 19:42:00* Test Item Value Reference Range Interpretation Comme nts POCT PREG (test code = 1605) negative On board controls acceptable with C Line (test code = 3574) present POCT PREG LOT # (test code = 3575) [id number] POCT PREG TEST DATE ( test code = 3576) 11-27-2023 Lab Interpretation (test cod e = 76718-2) [facility] THINPREP, [id number] 09:47:06 * Test Item Value Reference Range Interpretation Comme nts SOURCE: (test code = 8001) Cervical/Endoce rvical SLIDES: (test code = 8011) 1 LMP: (test code = 8021) 10/27/2021 SPECIMEN ADEQUACY: (test code = 65246) (NOTE) Satisfactory for evaluation. Endocervical cells/transformation zone component present. INTERPRETATION: (test code = 98936) NILM/NO EPITH. ABNORMALITY;SEE BELOW --- - NEGATIVE FOR INTRAEPITHELIAL LESION OR MALIGNANCY (NILM) ---- SHEEP FARM MANAGER : (test code = 8101) Nery Macedo LOCATION: (test code = 45096) (NOTE) Specimens proces sed and interpreted at [facility], [address] [place], [place] [id number], , CLIA: [id number] CPT: (test code = 8140) (NOTE) 99236 UNLESS OTH ERWISE INDICATED, COMPUTER AIDED AND SHEEP FARM MANAGER SCREENING PERFORMED. The Pap test is a screening test with an inherent, but low probability of error. Your patient should be reminded to consult you immediately if she experiences any suspicious signs or symptoms, regardless of her Pap test result. An alternate report format containing images or consolidated prior Pap history is available as applicable. UNLESS OTHERWISE INDICATED, ALL TESTING PERFORMED [facility] [address] [place] [address] REGIONAL ENGAGEMENT CONSULTANT: ELIF MADISON M.D. [place] NUMBER [id number] [facility] [place]. [id number] PAP TEST, THINPREP, [id number] 00:00:00* Test Item Value Reference Range Interpretation Comme nts SOURCE: (test code = 8001) Cervical/Endocervical SLIDES: (test code = 8011) 1 LMP: (test code = 8021) 10/27/2021 SPECIMEN ADEQUACY: (test code = 31693) (NOTE) INTERPRETATION: (test code = 83823) NILM/NO EPITH. ABNORMALITY;SEE BELOW SHEEP FARM MANAGER: (test code = 8101) Nery Macedo LOCATION: (test code = 89027) (NOTE) CPT: (test code = 8140) (NOTE) PAP TEST, THINPREP, [id number] 00:00:00* Test Item Value Reference Range Interpretation Comme nts SOURCE: (test code = 8001) Cervical/Endocervical SLIDES: (test code = 8011) 1 LMP: (test code = 8021) 10/27/2021 SPECIMEN ADEQUACY: (test code = 67573) (NOTE) INTERPRETATION: (test code = 40679) NILM/NO EPITH. ABNORMALITY;SEE BELOW SHEEP FARM MANAGER: (test code = 8101) Nery Macedo LOCATION: (test code = 94186) (NOTE) CPT: (test code = 8140) (NOTE) Mariusz DietrichPAP TEST, THINPREP, [id number] 00:00:00* Test Item Value Reference Range Interpretation Comme nts SOURCE: (test code = 8001) Cervical/Endocervical SLIDES: (test code = 8011) 1 LMP: (test code = 8021) 10/27/2021 SPECIMEN ADEQUACY: (test code = 39497) (NOTE) INTERPRETATION: (test code = 44922) NILM/NO EPITH. ABNORMALITY;SEE BELOW SHEEP FARM MANAGER: (test code = 8101) Nery Beckerkins LOCATION: (test code = 38701) (NOTE) CPT: (test code = 8140) (NOTE) Mariusz DietrichPAP TEST, THINPREP, [id number] 00:00:00* Test Item Value Reference Range Interpretation Comme nts SOURCE: (test code = 8001) Cervical/Endocervical SLIDES: (test code = 8011) 1 LMP: (test code = 8021) 10/27/2021 SPECIMEN ADEQUACY: (test code = 15214) (NOTE) INTERPRETATION: (test code = 26510) NILM/NO EPITH. ABNORMALITY;SEE BELOW SHEEP FARM MANAGER: (test code = 8101) Nery Hellen LOCATION: (test code = 84571) (NOTE) CPT: (test code = 8140) (NOTE) Mariusz DietrichVAGINAL PATHOGENS DNA [id number] 14:50:28* Test Item Value Reference Range Interpretation Comme nts DAMIR SPECIES (test code = 55097) NEGATIVE NEGATIVE G. VAGINALIS (test code = 66945) NEGATIVE NEGATIVE T. VAGINALIS (test code = 21516) NEGATIVE NEGATIVE UNLESS OTHERWISE INDICATED, ALL TESTING PERFORMED [facility] [address] [place] [address] REGIONAL ENGAGEMENT CONSULTANT: ELIF MADISON M.D. CLIA NUMBER [id number] [facility] [place]. [id number] 06:56:09* Test Item Value Reference Range Interpretation Comme nts RPR RESULT (test code = 3501) NON-REACTIVE NON-REACTIVE RPR TITER (test code = 3500) NOT INDIC. TITER NOT INDIC. HIV 1/2 4TH GEN, RFLX [id number] 05:54:17* Test Item Value Reference Range Interpretation Comme nts HIV 1/2 4TH GEN, RFLX CONF ( test code = 3514) NON-REACTIVE NON-REACTIVE HEPATITIS PANEL, [id number] 05:54:17* Test Item Value Reference Range Interpretation Comme nts HEPATITIS A IgM (test code = 48745) NON-REACTIVE NON-REACTIVE HEPATITIS B CORE IgM (test code = 4644) NON-REACTIVE NON-REACTIVE HEPATITIS B SURF AG (test code = 2739) NON-REACTIVE NON-REACTIVE HEPATITIS C ANTIBODY (test code = 4675) NON-REACTIVE NON-REACTIVE INTERPRETATION HEPATITIS A: (test code = 2552) (NOTE) Hepatitis A serology shows no evidence of acute hepatitis A. INTERPRETATION HEPATITIS B: (test code = 29683) (NOTE) Hepatitis B serology shows no evidence of acute hepatitis B andno indication of exposure to hepatitis B virus in the previous jie eight months. INTERPRETATION HEPATITIS C: (test code = 64884) (NOTE) Hepatitis C serology shows no evidence of exposure to hepatitisC virus at this time. It can take up to 12 months after exposure tothe hepatitis C virus for antibodies to become detectable in the blood in certain patients. ACUTE HEPATITIS [id number] 00:00:00* Test Item Value Reference Range Interpretation Comme nts HEPATITIS A IgM (test code = 03990) NON-REACTIVE HEPATITIS B CORE IgM (test c ode = 4644) NON-REACTIVE HEPATITIS B SURF AG (test co de = 2739) NON-REACTIVE HEPATITIS C ANTIBODY (test c ode = 4675) NON-REACTIVE INTERPRETATION HEPATITIS A: (test code = 2552) (NOTE) INTERPRETATION HEPATITIS B: (test code = 78559) (NOTE) INTERPRETATION HEPATITIS C: (test code = 43547) (NOTE) Mariusz Adams [id number] 00:00:00* Test Item Value Reference Range Interpretation Comme nts RPR RESULT (test code = 3501) NON-REACTIVE RPR TITER (test code = 3500) NOT INDIC. TITER Mariusz DietrichVAGINAL PATHOGENS DNA [id number] 00:00:00* Test Item Value Reference Range Interpretation Comme nts DAMIR SPECIES (test code = 75411) NEGATIVE G. VAGINALIS (test code = 98310) NEGATIVE T. VAGINALIS (test code = 13116) NEGATIVE Mariusz Adams KarloHIV AB/AG COMBO RFLX [id number] 00:00:00* Test Item Value Reference Range Interpretation Comme nts HIV 1/2 4TH GEN, RFLX CONF ( test code = 3514) NON-REACTIVE ACUTE HEPATITIS [id number] 00:00:00* Test Item Value Reference Range Interpretation Comme nts HEPATITIS A IgM (test code = 93496) NON-REACTIVE HEPATITIS B CORE IgM (test c ode = 4644) NON-REACTIVE HEPATITIS B SURF AG (test co de = 2739) NON-REACTIVE HEPATITIS C ANTIBODY (test c ode = 4675) NON-REACTIVE INTERPRETATION HEPATITIS A: (test code = 2552) (NOTE) INTERPRETATION HEPATITIS B: (test code = 74514) (NOTE) INTERPRETATION HEPATITIS C: (test code = 18828) (NOTE) [id number] 00:00:00* Test Item Value Reference Range Interpretation Comme nts RPR RESULT (test code = 3501) NON-REACTIVE RPR TITER (test code = 3500) NOT INDIC. TITER VAGINAL PATHOGENS DNA [id number] 00:00:00* Test Item Value Reference Range Interpretation Comme nts DAMIR SPECIES (test code = ) NEGATIVE G. VAGINALIS (test code = 34789) NEGATIVE T. VAGINALIS (test code = ) NEGATIVE HIV AB/AG COMBO RFLX [id number] 00:00:00* Test Item Value Reference Range Interpretation Comme nts HIV 1/2 4TH GEN, RFLX CONF ( test code = 3514) NON-REACTIVE Mariusz DietrichACUTE HEPATITIS [id number] 00:00:00* Test Item Value Reference Range Interpretation Comme nts HEPATITIS A IgM (test code = 87903) NON-REACTIVE HEPATITIS B CORE IgM (test c ode = 4644) NON-REACTIVE HEPATITIS B SURF AG (test co de = 2739) NON-REACTIVE HEPATITIS C ANTIBODY (test c ode = 4675) NON-REACTIVE INTERPRETATION HEPATITIS A: (test code = 2552) (NOTE) INTERPRETATION HEPATITIS B: (test code = 81182) (NOTE) INTERPRETATION HEPATITIS C: (test code = 89020) (NOTE) Mariusz Adams [id number] 00:00:00* Test Item Value Reference Range Interpretation Comme nts RPR RESULT (test code = 3501) NON-REACTIVE RPR TITER (test code = 3500) NOT INDIC. TITER Mariusz DietrichVAGINAL PATHOGENS DNA [id number] 00:00:00* Test Item Value Reference Range Interpretation Comme nts DAMIR SPECIES (test code = ) NEGATIVE G. VAGINALIS (test code = 28820) NEGATIVE T. VAGINALIS (test code = 36924) NEGATIVE Mariusz DietrichHIV AB/AG COMBO RFLX [id number] 00:00:00* Test Item Value Reference Range Interpretation Comme nts HIV 1/2 4TH GEN, RFLX CONF ( test code = 3514) NON-REACTIVE Mariusz DietrichACUTE HEPATITIS [id number] 00:00:00* Test Item Value Reference Range Interpretation Comme nts HEPATITIS A IgM (test code = 38814) NON-REACTIVE HEPATITIS B CORE IgM (test c ode = 4644) NON-REACTIVE HEPATITIS B SURF AG (test co de = 2739) NON-REACTIVE HEPATITIS C ANTIBODY (test c ode = 4675) NON-REACTIVE INTERPRETATION HEPATITIS A: (test code = 2552) (NOTE) INTERPRETATION HEPATITIS B: (test code = 82479) (NOTE) INTERPRETATION HEPATITIS C: (test code = 70861) (NOTE) Mariusz [id number] 00:00:00* Test Item Value Reference Range Interpretation Comme nts RPR RESULT (test code = 3501) NON-REACTIVE RPR TITER (test code = 3500) NOT INDIC. TITER Mariusz DietrichVAGINAL PATHOGENS DNA [id number] 00:00:00* Test Item Value Reference Range Interpretation Comme tyrone DAMIR SPECIES (test code = 23047) NEGATIVE G. VAGINALIS (test code = 54556) NEGATIVE T. VAGINALIS (test code = 99891) NEGATIVE Mariuzs DietrichHIV AB/AG COMBO RFLX [id number] 00:00:00* Test Item Value Reference Range Interpretation Comme nts HIV 1/2 4TH GEN, RFLX CONF ( test code = 3514) NON-REACTIVE Mariusz DietrichSARS-CoV-2 (COVID-19), RT-PCR/[id number] 13:12:43* Test Item Value Reference Range Interpretation Comments SARS-CoV-2 INTERPRETATION (test code = 38324) NEGATIVE SEE NOTE SARS-CoV-2 R NA NOT [...] prevalence is high. SOURCE (test code = 61489) NASOPHARYNGEAL Note: Methodolog y is Ronit Jagdeep Real-Time RT-PCR. The expected result or reference range is NEGATIVE (Not Detected). For more information regarding COVID-19 testing to include clinicalinformation, methodology detail, intended use, FDA authorization andrecommended fact sheets for patients or healthcare providers, see [employer] Announcement: SARS-CoV-2 (COVID-19) by NAAT at URL below (note,fact sheets are provided by method given in report:[email or web address] Alternatively, see downloadable PDF fact sheet at:[email or web address] UNLESS OTHERWISE INDICATED, ALL TESTING PERFORMED [facility] [employer], [facility]. [address] [place] [address] REGIONAL ENGAGEMENT CONSULTANT: ELIF MADISON M.D. [place] NUMBER [id number] [facility] [place]. [id number] SARS-CoV-2 (COVID-19) by RT-PCR (HIGH RISK)2021-09-16 00:00:00* Test Item Value Reference Range Interpretation Comme nts SARS-CoV-2 INTERPRETATION (test code = 50837) NEGATIVE SOURCE (test code = 55839) NASOPHARYNGEAL SARS-CoV-2 (COVID-19) by RT-PCR (HIGH RISK)2021-09-16 00:00:00* Test Item Value Reference Range Interpretation Comme nts SARS-CoV-2 INTERPRETATION (test code = 55474) NEGATIVE SOURCE (test code = 59404) NASOPHARYNGEAL Mariusz F [id number] (COVID-19) by RT-PCR (HIGH RISK)2021-09-16 00:00:00* Test Item Value Reference Range Interpretation Comme nts SARS-CoV-2 INTERPRETATION (test code = 60854) NEGATIVE SOURCE (test code = 06943) NASOPHARYNGEAL Mariusz F [id number] (COVID-19) by RT-PCR (HIGH RISK)2021-09-16 00:00:00* Test Item Value Reference Range Interpretation Comme nts SARS-CoV-2 INTERPRETATION (test code = 22311) NEGATIVE SOURCE (test code = 28888) NASOPHARYNGEAL Mariusz CoxRS-CoV-2 (COVID-19), RT-PCR/[id number] 13:37:12* Test Item Value Reference Range Interpretation Comments SARS-CoV-2 INTERPRETATION (test code = 11391) PRESUMPTIVE POSITIVE SEE NOTE A NOTE: PRESUMPTIVE POSITIVE RESULTS ARE MOST CONSISTENT WITH [id number] THE LIMIT OF DETECTION OF THE ASSAY. OTHER UNCOMMON POSSIBLECAUSES ARE A MUTATION IN ONE OF THE TARGET REGIONS, INFECTION WITHANOTHER SARBECOVIRUS OR LABORATORY ISSUES. CORRELATE WITH CLINICALHISTORY AND EPIDEMIOLOGIC FINDINGS. SOURCE (test code = 59143) NASOPHARYNGEAL Note: Methodolog y is Ronit Jagdeep Real-Time RT-PCR. The expected result or reference range is NEGATIVE (Not Detected). For more information regarding COVID-19 testing to include clinicalinformation , methodology detail, intended use, FDA authorization andrecommended fact sheets for patients or healthcare providers, see [employer] Announcement: SARS-CoV-2 (COVID-19) by NAAT at URL below (note,fact sheets are provided by method given in report:[email or web address] [email or web address] Alternatively, see downloadable PDF fact sheet at:[email or web address] -PCR Note: Methodology is Ronit Jagdeep Real-Time RT-PCR. The expected result or reference range is NEGATIVE (Not Detected). For more information regarding COVID-19 testing to include clinicalinformation , methodology detail, intended use, FDA authorization andrecommended fact sheets for patients or healthcare providers, see [employer] Announcement: SARS-CoV-2 (COVID-19) by NAAT at URL below (note,fact sheets are provided by method given in report:[email or web address] [email or web address] Alternatively, see downloadable PDF fact sheet at:[email or web address] -PCR UNLESS OTHERWISE INDICATED, ALL TESTING PERFORMED [facility] [employer] [address] [place] [address] REGIONAL ENGAGEMENT CONSULTANT: ELIF MADISON M.D. [place] NUMBER [id number] [place]. [id number] SARS-CoV-2 (COVID-19) by RT-PCR (HIGH RISK)2021-09-09 00:00:00* Test Item Value Reference Range Interpretation Comme nts SARS-CoV-2 INTERPRETATION (test code = 21823) PRESUMPTIVE POSITIVE SOURCE (test code = 74079) NASOPHARYNGEAL SARS-CoV-2 (COVID-19) by RT-PCR (HIGH RISK)2021-09-09 00:00:00* Test Item Value Reference Range Interpretation Comme nts SARS-CoV-2 INTERPRETATION (test code = 50010) PRESUMPTIVE POSITIVE SOURCE (test code = 95976) NASOPHARYNGEAL Mariusz F [id number] (COVID-19) by RT-PCR (HIGH RISK)2021-09-09 00:00:00* Test Item Value Reference Range Interpretation Comme nts SARS-CoV-2 INTERPRETATION (test code = 27911) PRESUMPTIVE POSITIVE SOURCE (test code = 19151) NASOPHARYNGEAL Mariusz F [id number] (COVID-19) by RT-PCR (HIGH RISK)2021-09-09 00:00:00* Test Item Value Reference Range Interpretation Comme nts SARS-CoV-2 INTERPRETATION (test code = 64663) PRESUMPTIVE POSITIVE SOURCE (test code = 80339) NASOPHARYNGEAL Mariusz F AustinBASIC METABOLIC PANEL (NA, K, CL, CO2, GLUCOSE, BUN, CREATININE, CA)2021-08-25 01:45:53* Test Item Value Reference Range Interpretation Comme nts NA (test code = 1259603050) 136 mmol/L 135-145 K (test code = 3959181959) 4.1 mmol/L 3.5-5.0 CL (test code = 6951325742) 102 mmol/L 98-108 CO2 TOTAL (test code = 0063970382) 29 mmol/L 23-31 AGAP (test code = 0819633956) 2-16 BUN (test code = 2121889499) 9 mg/dL 7-23 GLUCOSE (test code = 4005970495) 92 mg/dL 70-110 CREATININE (test code = 8751195357) 0.54 mg/dL 0.50-1.04 CALCIUM (test code = 6439673041) 8.5 mg/dL 8.6-10.6 L eGFR (test code = 6382655015) mL/min/1.73m2 EMERALD (test code = EMERALD) Association [...] imaging tests). Lab Interpretation (test code = 70933-6) Abnormal [facility] WITH [id number] 01:34:37* Test Item Value Reference Range Interpretation Comme nts WBC (test code = 6690-2) See_Comment [Automated [employer]] The system which generated this result transmitted reference range: 4.30 - 11.10 10*3/?L. The reference range was not used to interpret this result as normal/abnormal. RBC (test code = 789-8) See_Comment [Automated [employer]] The system which generated this result transmitted [...] 33.7 g/dL 31.6-35.1 RDW-SD (test code = 58011-0) 41.3 fL 39.0-49.9 RDW-CV (test code = 788-0) 12.7 % 12.0-15.5 PLT (test code = 777-3) See_Comment [Automated messa ge] The system which generated this result transmitted reference range: 166 - 358 10*3/?L. The reference range was not used to interpret this result as normal/abnormal. MPV (test code = 01640-7) 9.1 fL 9.5-12.9 L NRBC/100 WBC (test code = 0774291225) See_Comment [Automated [employer] ssage] The system which generated this result transmitted reference range: 0.0 - 10.0 /100 WBCs. The reference range was not used to interpret this result as normal/abnormal. NRBC x10^3 (test code = 3737700731) <0.01 See_Comment [Automated messa ge] The system which generated this result transmitted reference range: 10*3/?L. The reference range was not used to interpret this result as normal/abnormal. GRAN MAT (NEUT) % (test code = 770-8) 49.6 % IMM GRAN % (test code = 4791208553) 0.20 % LYMPH % (test code = 736-9) 39.5 % MONO % (test code = 5905-5) 9.0 % EOS % (test code = 713-8) 1.3 % BASO % (test code = 706-2) 0.4 % GRAN MAT x10^3(ANC) (test code = 8489688649) 2.36 10*3/uL 1.88-7.09 IMM GRAN x10^3 (test code = 4370355263) <0.03 0.00-0.06 LYMPH x10^3 (test code = 731-0) 1.88 10*3/uL 1.32-3.29 MONO x10^3 (test code = 742-7) 0.43 10*3/uL 0.33-0.92 EOS x10^3 (test code = 711-2) 0.06 10*3/uL 0.03-0.39 BASO x10^3 (test code = 704-7) <0.03 0.01-0.07 Lab Interpretation (test code = 02968-7) [facility]normal [facility] [id number] 01:28:00* Test Item Value Reference Range Interpretation Comme nts POCT PREG (test code = 1605) negative On board controls acceptable with C Line (test code = 3574) present POCT PREG LOT # (test code = 3575) [id number] POCT PREG TEST DATE ( test code = 3576) 09/28/2022 Lab Interpretation (test cod e = 95760-0) Normal [facility]URINE)2020-12-10 05:28:49* Test Item Value Reference Range Interpretation Comme nts AMPHET (test code = 4988867601) Negative Negative Cocaine Metabolite (test code = 6295618728) Negative Negative OPIATES (test code = 0183058862) Presumptive Positive Negative A THC (test code = 4810802926) Negative Negative EMERALD (test code = EMERALD) Urine Drug Cutoff Ranges Amphetamine: ? 1,000 ng/mLCocaine: ? 150 ng/mLOpiates: ? 300 ng/mLCannabinoids: ?50 ng/mL The results are to be used only for medical (i.e., treatment) purposes. Unconfirmed screening results must not be used for non-medical purposes (e.g., employment testing, legal testing). Lab Interpretation (test code = 84754-8) Abnormal [facility] PELVIS WO [id number] 04:25:17No acute intra-abdominal or pelvic abnormality. No genitourinary stones. Complex right ovarian cyst, likely hemorrhagic cyst measuring 3.8 cm RL: [id number]: [id number] Patient name: LORNA BREWER CAMPBELL: 1995 25 years EXAMINATION: CT A BDOMEN [...] User- 12/09/2020 11:26 PM CDTPatient name: LORNA HIGHTOWER: [...] likely hemorrhagic cyst aisha suring 3.8 cmRL: 6200AFC: [id number] [facility]ysis[facility] 02:12:28* Test Item Value Reference Range Interpretation Comme nts APPEARANCE (test code = 3138676027) Hazy Clear A COLOR (test code = 6780662105) Yellow Yellow PH (test code = 9554642306) 4.8-8.0 SP GRAVITY (test code = 7738271866) 1.003-1.030 GLU U QUAL (test code = 5294316127) Normal Normal BLOOD (test code = 5380041944) Negative Negative KETONES (test code = 3651018953) Negative Negative PROTEIN (test code = 2887-8) Negative Negative UROBILIN (test code = 4568863133) 4.0 mg/dL Normal A BILIRUBIN (test code = 6989395970) Negative Negative NITRITE (test code = 9069229603) Negative Negative LEUK HOLLEY (test code = 4173944305) Negative Negative RBC/HPF (test code = 1082562400) See_Comment H [Automated [employer]] The system which generated this result transmitted reference range: 0 - 3 HPF. The reference range was not used to interpret this result as normal/abnormal. WBC/HPF (test code = 7967620020) See_Comment [Automated [employer]] The system which generated this result transmitted reference range: 0 - 5 HPF. The reference range was not used to interpret this result as normal/abnormal. BACTERIA (test code = 4620422477) Negative Negative MUCOUS (test code = 5092774949) Slight Negative LPF A SQ EPITH (test code = 7042880282) HPF YEAST BUD (test code = 8129980475) See_Comment H [Automated [employer]] The system which generated this result transmitted reference range: <=1 HPF. The reference range was not used to interpret this result as normal/abnormal. Lab Interpretation (test code = 99266-1) Abnormal [facility] HoustonComplete Metabolic [id number] 02:09:13* Test Item Value Reference Range Interpretation Comme nts NA (test code = 4221238155) 137 mmol/L 135-145 K (test code = 9503582857) 3.7 mmol/L 3.5-5.0 CL (test code = 9424311124) 103 mmol/L 98-108 CO2 TOTAL (test code = 3603435997) 26 mmol/L 23-31 AGAP (test code = 0741121590) 2-16 BUN (test code = 4592386342) 12 mg/dL 7-23 GLUCOSE (test code = 5580286478) 92 mg/dL 70-110 CREATININE (test code = 8823266926) 0.62 mg/dL 0.50-1.04 TOTAL BILI (test code = 6453774551) 0.4 mg/dL 0.1-1.1 CALCIUM (test code = 7844997095) 8.9 mg/dL 8.6-10.6 T PROTEIN (test code = 2523577324) 7.1 g/dL 6.3-8.2 ALBUMIN (test code = 7589359915) 4.4 g/dL 3.5-5.0 ALK PHOS (test code = 9457900843) 79 U/L 34-122 ALTv (test code = 1742-6) 16 U/L 5-35 AST(SGOT) (test code = 7208280832) 23 U/L 13-40 eGFR (test code = 4030080168) mL/min/1.73m2 EMERALD (test code = EMERALD) Association [...] or urine or abnormalities in imaging tests). [facility] HoustonLipase, [id number] 02:08:38* Test Item Value Reference Range Interpretation Comme nts LIPASE (test code = 5559264430) 53 U/L 0-220 Lab Interpretation (test cod e = 87611-3) Normal [facility] HoustonCB with [id number] 02:00:16* Test Item Value Reference Range Interpretation Comme nts WBC (test code = 6690-2) See_Comment [[employer]] The system which generated this result transmitted reference range: 4.30 - 11.10 10*3/?L. The reference range was not used to interpret this result as normal/abnormal. RBC (test code = 789-8) See_Comment [[employer]] The system which generated this result transmitted [...] 33.6 g/dL 31.6-35.1 RDW-SD (test code = 18342-5) 42.6 fL 39.0-49.9 RDW-CV (test code = 788-0) 13.2 % 12.0-15.5 PLT (test code = 777-3) See_Comment [Automated messa ge] The system which generated this result transmitted reference range: 166 - 358 10*3/?L. The reference range was not used to interpret this result as normal/abnormal. MPV (test code = 66452-6) 9.5 fL 9.5-12.9 NRBC/100 WBC (test code = 3470237734) See_Comment [Automated me ssage] The system which generated this result transmitted reference range: 0.0 - 10.0 /100 WBCs. The reference range was not used to interpret this result as normal/abnormal. NRBC x10^3 (test code = 5073262525) <0.01 See_Comment [Automated me ssage] The system which generated this result transmitted reference range: 10*3/?L. The reference range was not used to interpret this result as normal/abnormal. GRAN MAT (NEUT) % (test code = 770-8) 59.6 % IMM GRAN % (test code = 9131893308) 0.30 % LYMPH % (test code = 736-9) 31.8 % MONO % (test code = 5905-5) 6.4 % EOS % (test code = 713-8) 1.4 % BASO % (test code = 706-2) 0.5 % GRAN MAT x10^3(ANC) (test code = 5895080698) 5.15 10*3/uL 1.88-7.09 IMM GRAN x10^3 (test code = 7800042110) 0.03 10*3/uL 0.00-0.06 LYMPH x10^3 (test code = 731-0) 2.75 10*3/uL 1.32-3.29 MONO x10^3 (test code = 742-7) 0.55 10*3/uL 0.33-0.92 EOS x10^3 (test code = 711-2) 0.12 10*3/uL 0.03-0.39 BASO x10^3 (test code = 704-7) 0.04 10*3/uL 0.01-0.07 [facility]PO[facility] [id number] 01:46:00* Test Item Value Reference Range Interpretation Comme nts POCT PREG (test code = 1605) negative On board controls acceptable with C Line (test code = 3574) present Lab Interpretation (test cod e = 89249-1) Normal [facility] HoustonSARS-CoV-2 (COVID-19) by RT-PCR (HIGH RISK) 2020-12-03 00:00:00* Test Item Value Reference Range Interpretation Comme nts SARS-CoV-2 INTERPRETATION (t est code = 81935) NEGATIVE SOURCE (test code = 90295) NOT SPECIFIED SARS-CoV-2 (COVID-19) by RT-PCR (HIGH RISK)2020-12-03 00:00:00* Test Item Value Reference Range Interpretation Comme nts SARS-CoV-2 INTERPRETATION (t est code = 57672) NEGATIVE SOURCE (test code = 22996) NOT SPECIFIED Mariusz Angie [id number] (COVID-19) by RT-PCR (HIGH RISK)2020-12-03 00:00:00* Test Item Value Reference Range Interpretation Comme nts SARS-CoV-2 INTERPRETATION (t est code = 33832) NEGATIVE SOURCE (test code = 19800) NOT SPECIFIED Mariusz Angie [id number] (COVID-19) by RT-PCR (HIGH RISK)2020-12-03 00:00:00* Test Item Value Reference Range Interpretation Comme nts SARS-CoV-2 INTERPRETATION (t est code = 05919) NEGATIVE SOURCE (test code = 01938) NOT SPECIFIED Mariusz DietrichGC AND CHLAMYDIA AMPLIFIED, [id number] 00:00:00* Test Item Value Reference Range Interpretation Comme nts GONORRHEA, TMA (test code = 89899) NEGATIVE CHLAMYDIA, TMA (test code = 19500) NEGATIVE Mariusz DietrichPAP TEST, THINPREP, [id number] 00:00:00* Test Item Value Reference Range Interpretation Comme nts SOURCE: (test code = 8001) Cervical/Endocervical SLIDES: (test code = 8011) 1 LMP: (test code = 8021) 03/16/17 SPECIMEN ADEQUACY: (test code = 39522) (NOTE) INTERPRETATION: (test code = 83689) NO EPITHELIAL ABNORMALITY SEE BELOW SHEEP FARM MANAGER: (test code = 8101) LITO Skaggs(ASCP) QC TECHNOLOGIST: (test code = 8111) LITO Woods(ASCP)IAC LOCATION: (test code = 42420) (NOTE) CPT: (test code = 8140) (NOTE) GC AND CHLAMYDIA AMPLIFIED, [id number] 00:00:00* Test Item Value Reference Range Interpretation Comme nts GONORRHEA, TMA (test code = 57607) NEGATIVE CHLAMYDIA, TMA (test code = 63480) NEGATIVE PAP TEST, THINPREP, [id number] 00:00:00* Test Item Value Reference Range Interpretation Comme nts SOURCE: (test code = 8001) Cervical/Endocervical SLIDES: (test code = 8011) 1 LMP: (test code = 8021) 03/16/17 SPECIMEN ADEQUACY: (test code = 14291) (NOTE) INTERPRETATION: (test code = 10127) NO EPITHELIAL ABNORMALITY SEE BELOW SHEEP FARM MANAGER: (test code = 8101) LITO Skaggs(ASCP) QC TECHNOLOGIST: (test code = 8111) LITO Woods(ASCP)IAC LOCATION: (test code = 93925) (NOTE) CPT: (test code = 8140) (NOTE) Mariusz F AustinGC AND CHLAMYDIA AMPLIFIED, [id number] 00:00:00* Test Item Value Reference Range Interpretation Comme nts GONORRHEA, TMA (test code = 79261) NEGATIVE CHLAMYDIA, TMA (test code = 74144) NEGATIVE Mariusz F AustinPAP TEST, THINPREP, [id number] 00:00:00* Test Item Value Reference Range Interpretation Comme nts SOURCE: (test code = 8001) Cervical/Endocervical SLIDES: (test code = 8011) 1 LMP: (test code = 8021) 03/16/17 SPECIMEN ADEQUACY: (test code = 86380) (NOTE) INTERPRETATION: (test code = 52260) NO EPITHELIAL ABNORMALITY SEE BELOW SHEEP FARM MANAGER: (test code = 8101) LITO Skaggs(ASCP) QC TECHNOLOGIST: (test code = 8111) LITO Woods(ASCP)IAC LOCATION: (test code = 31339) (NOTE) CPT: (test code = 8140) (NOTE) Mariusz DietrichGC AND CHLAMYDIA AMPLIFIED, [id number] 00:00:00* Test Item Value Reference Range Interpretation Comme nts GONORRHEA, TMA (test code = 60394) NEGATIVE CHLAMYDIA, TMA (test code = 48810) NEGATIVE Mariusz DietrichPAP TEST, THINPREP, [id number] 00:00:00* Test Item Value Reference Range Interpretation Comme nts SOURCE: (test code = 8001) Cervical/Endocervical SLIDES: (test code = 8011) 1 LMP: (test code = 8021) 03/16/17 SPECIMEN ADEQUACY: (test code = 67888) (NOTE) INTERPRETATION: (test code = 41312) NO EPITHELIAL ABNORMALITY SEE BELOW SHEEP FARM MANAGER: (test code = 8101) Claudai Rolle CT(ASCP) QC TECHNOLOGIST: (test code = 8111) LITO Woods(ASCP)IAC LOCATION: (test code = 00036) (NOTE) CPT: (test code = 8140) (NOTE) Mariusz DietrichACUTE HEPATITIS [id number] 00:00:00* Test Item Value Reference Range Interpretation Comme nts HEPATITIS A IgM (test code = 99051) NON-REACTIVE HEPATITIS B CORE IgM (test c ode = 4644) NON-REACTIVE HEPATITIS B SURF AG (test co de = 2739) NON-REACTIVE HEPATITIS C ANTIBODY (test c ode = 4675) NON-REACTIVE INTERPRETATION HEPATITIS A: (test code = 2552) (NOTE) INTERPRETATION HEPATITIS B: (test code = 27174) (NOTE) INTERPRETATION HEPATITIS C: (test code = 56246) (NOTE) Mariusz DietrichHIV AB/AG COMBO RFLX [id number] 00:00:00* Test Item Value Reference Range Interpretation Comme nts HIV 1/2 4TH GEN, RFLX CONF ( test code = 3514) NON-REACTIVE [id number] 00:00:00* Test Item Value Reference Range Interpretation Comme nts RPR RESULT (test code = 3501) NON-REACTIVE RPR TITER (test code = 3500) NOT INDIC. TITER ACUTE HEPATITIS [id number] 00:00:00* Test Item Value Reference Range Interpretation Comme nts HEPATITIS A IgM (test code = 25142) NON-REACTIVE HEPATITIS B CORE IgM (test c ode = 4644) NON-REACTIVE HEPATITIS B SURF AG (test co de = 2739) NON-REACTIVE HEPATITIS C ANTIBODY (test c ode = 4675) NON-REACTIVE INTERPRETATION HEPATITIS A: (test code = 2552) (NOTE) INTERPRETATION HEPATITIS B: (test code = 04479) (NOTE) INTERPRETATION HEPATITIS C: (test code = 59618) (NOTE) HIV AB/AG COMBO RFLX [id number] 00:00:00* Test Item Value Reference Range Interpretation Comme nts HIV 1/2 4TH GEN, RFLX CONF ( test code = 3514) NON-REACTIVE Mariusz [id number] 00:00:00* Test Item Value Reference Range Interpretation Comme nts RPR RESULT (test code = 3501) NON-REACTIVE RPR TITER (test code = 3500) NOT INDIC. TITER Mariusz DietrichACUTE HEPATITIS [id number] 00:00:00* Test Item Value Reference Range Interpretation Comme nts HEPATITIS A IgM (test code = 45062) NON-REACTIVE HEPATITIS B CORE IgM (test c ode = 4644) NON-REACTIVE HEPATITIS B SURF AG (test co de = 2739) NON-REACTIVE HEPATITIS C ANTIBODY (test c ode = 4675) NON-REACTIVE INTERPRETATION HEPATITIS A: (test code = 2552) (NOTE) INTERPRETATION HEPATITIS B: (test code = 78148) (NOTE) INTERPRETATION HEPATITIS C: (test code = 34922) (NOTE) Mariusz DietrichHIV AB/AG COMBO RFLX [id number] 00:00:00* Test Item Value Reference Range Interpretation Comme nts HIV 1/2 4TH GEN, RFLX CONF ( test code = 3514) NON-REACTIVE Mariusz Adams [id number] 00:00:00* Test Item Value Reference Range Interpretation Comme nts RPR RESULT (test code = 3501) NON-REACTIVE RPR TITER (test code = 3500) NOT INDIC. TITER Mariusz Adams AustinACUTE HEPATITIS [id number] 00:00:00* Test Item Value Reference Range Interpretation Comme nts HEPATITIS A IgM (test code = 11998) NON-REACTIVE HEPATITIS B CORE IgM (test c ode = 4644) NON-REACTIVE HEPATITIS B SURF AG (test co de = 2739) NON-REACTIVE HEPATITIS C ANTIBODY (test c ode = 4675) NON-REACTIVE INTERPRETATION HEPATITIS A: (test code = 2552) (NOTE) INTERPRETATION HEPATITIS B: (test code = 85648) (NOTE) INTERPRETATION HEPATITIS C: (test code = 69166) (NOTE) Mariusz DietrichHIV AB/AG COMBO RFLX [id number] 00:00:00* Test Item Value Reference Range Interpretation Comme nts HIV 1/2 4TH GEN, RFLX CONF ( test code = 3514) NON-REACTIVE Mariusz [id number] 00:00:00* Test Item Value Reference Range Interpretation Comme nts RPR RESULT (test code = 3501) NON-REACTIVE RPR TITER (test code = 3500) NOT INDIC. TITER Mariusz Dietrich Notes | Date/Time Note Provider Source Mariusz Dietrich [facility]2024-09-09 00:00:00| Mariusz Dietrich [facility]2024-09-03 00:00:00| Mariusz Hinds [facility]"
[2024-07-19 18:15] LABS: SARS-CoV-2 Antigen CONTROL BLUE LINE VIS/BG OK; SARS-CoV-2 Antigen Rapid Res Negative (Negative)
--- NOTE | 2024-07-19 18:34 | EDPHYS ---
Physician Documentation [facility] Name: Lilia Nunez Age: 29 yrs Sex: Female : 1995 Arrival Date: 07/19/2024 Time: 17:06 Bed 23 Private MD: JAYCE Physician Misha Muñoz HPI: 07/19 17:30 This 29 yrs old Female presents to ER via Ambulatory with complaints of Flu cp Symptoms. 17:30 The patient or guardian reports cough, sore throat, body aches. Onset: The cp symptoms/episode began/occurred 4 day(s) ago. Associated signs and symptoms: Pertinent negatives: diarrhea, fever, vomiting. AUDIOLOGY DOCTOR: 17:16 LMP 07/08/2024, unknown tm6 Historical: - Allergies: 17:15 No Known Allergies; tm6 - PMHx: 17:15 Anxiety; Asthma; tm6 - PSHx: 17:15 None; tm6 - Immunization history:: Client reports receiving the 2nd dose of the Covid vaccine. - Infectious Disease History:: Denies. - Social history:: Smoking status: Patient/guardian denies using tobacco, the patient reports quitting approximately 2.5 years ago, Patient uses alcohol, occasionally. ROS: 17:35 Constitutional: Positive for body aches, Negative for fever, cp 17:35 Eyes: Negative for injury, pain, redness, and discharge, cp 17:35 ENT: Positive for sore throat, Negative for drainage from ear(s), ear pain, difficulty swallowing, difficulty handling secretions, 17:35 Respiratory: Positive for cough, 17:35 Abdomen/GI: Negative for abdominal pain, vomiting, diarrhea, constipation, 17:35 Neuro: Positive for headache, Negative for altered mental status, weakness, 17:35 All other systems are negative, Exam: 17:40 Constitutional: The patient appears in no acute distress, alert, awake, non-toxic, well cp developed, well nourished, 17:40 Head/Face: Normocephalic, atraumatic. cp 17:40 Eyes: Periorbital structures: appear normal, Conjunctiva: normal, no exudate, no injection, Sclera: no appreciated abnormality, Lids and lashes: appear normal, bilaterally, 17:40 ENT: External ear(s): are unremarkable, Ear canal(s): are normal, clear, TM's: dullness, bilaterally, Nose: is normal, Mouth: Lips: moist, Oral mucosa: moist, Posterior pharynx: Tonsils: no enlargement, no exudate, Uvula: midline, erythema, that is mild, exudate, is not appreciated, 17:40 Neck: ROM/movement: Meningeal signs: are not present, Lymph nodes: no appreciated lymphadenopathy, 17:40 Chest/axilla: Inspection: normal, 17:40 Cardiovascular: Rate: tachycardic, Rhythm: regular, 17:40 Respiratory: the patient does not display signs of respiratory distress, Respirations: normal, no use of accessory muscles, no retractions, labored breathing, is not present, Breath sounds: are clear throughout, no decreased breath sounds, no stridor, no wheezing, 17:40 Abdomen/GI: Inspection: abdomen appears normal, Palpation: abdomen is soft and non-tender, in all quadrants, Vital Signs: 17:13 BP 125 / 90; Pulse 104; Resp 17; Temp 98.4(O); Pulse Ox 100% on R/A; MAP 101 mmHg; tm6 17:13 Weight 74.84 kg; Height 5 ft. 2 in. ; Pain 8/10; tm6 18:48 BP 122 / 84; Pulse 97; Resp 17; Temp 98.9; Pulse Ox 100% ; me1 17:13 Body Mass Index 30.18 (74.84 kg, 157.48 cm) tm6 17:13 Pain Scale: Adult tm6 MDM: 17:18 Medical Screening Exam initiated cp 18:00 Differential diagnosis: bronchitis, flu, URI, strep throat, influenza, COVID-19. cp 18:32 Data reviewed: vital signs, nurses notes, lab test result(s), and as a result, I will cp discharge patient. 18:33 Counseling: I had a detailed discussion with the patient and/or guardian regarding the cp historical points, exam findings, and any diagnostic results supporting the discharge/admit diagnosis, lab results, to return to the emergency department if symptoms worsen or persist or if there are any questions or concerns that arise at home. 07/19 17:27 Order name: Strep; Complete Time: 18:16 cp 07/19 17:27 Order name: Influenza Screen (a \T\ B); Complete Time: 18:16 cp 07/19 18:16 Interpretation: Reviewed. cp 07/19 17:27 Order name: SARS RAPID; Complete Time: 18:16 cp 07/19 18:17 Order name: Throat Culture EDMS Administered Medications: No medications were administered Disposition Summary: 07/19/24 18:33 Discharge Ordered Notes: Location: Home cp Problem: new cp Symptoms: have improved cp Condition: Stable cp Diagnosis - Influenza due to identified novel influenza A virus with other respiratory cp manifestations Followup: cp - With: Private Physician - When: 2 - 3 days - Reason: Worsening of condition Discharge Instructions: - Discharge Summary Sheet cp - Influenza, Adult cp - Influenza Tests cp Forms: - Work release form cp - Medication Reconciliation Form cp - Antibiotic Education cp - Prescription Opioid Use cp - Patient Portal Instructions cp - Leadership Thank You Letter cp Prescriptions: - Bromfed DM 2-30-10 mg/5 mL Oral syrup - administer 10 milliliter ORAL route 3-4 times daily as needed for cold cp symptoms; 240 milliliter; Refills: 0, Product Selection Permitted - Ibuprofen 800 mg Oral Tablet - take 1 tablet ORAL route every 8 hours As needed take with food; 30 tablet; cp Refills: 0, Product Selection Permitted Signatures: Dispatcher [employer] EDMS Misha Umaña PA PA cp Masterson, Tawney, RN RN tm6
--- NOTE | 2024-07-19 18:34 | ER ---
Nurse's Notes [facility] Name: Lilia Nunez Age: 29 yrs Sex: Female : 1995 Arrival Date: 07/19/2024 Time: 17:06 Bed 23 Private MD: Diagnosis: Influenza due to identified novel influenza A virus with other respiratory manifestations Presentation: 07/19 17:13 Chief complaint: Patient states: throat hurts, cough, headache, sneezing, starting tm6 Tuesday. Coronavirus screen: Client denies travel out of the [place] in the last 14 days. Ebola Screen: Patient negative for fever greater than or equal to 101.5 degrees Fahrenheit, and additional compatible Ebola Virus Disease symptoms Patient denies exposure to infectious person. Patient denies travel to an Ebola-affected area in the 21 days before illness onset. No symptoms or risks identified at this time. Initial Sepsis Screen: Does the patient meet any 2 criteria? HR > 90 bpm. Does the patient have a suspected source of infection? No. Patient's initial sepsis screen is negative. Risk Assessment: Do you want to hurt yourself or someone else? Patient reports no desire to harm self or others. Onset of symptoms was July 16, 2024. 17:13 Method Of Arrival: Ambulatory tm6 17:13 Acuity: TERRY 4 tm6 Triage Assessment: 17:15 General: Appears in no apparent distress. Behavior is calm, cooperative. Pain: tm6 Complains of pain in head, throat. EENT: Reports sore throat. EENT: Reports nasal congestion nasal discharge. Neuro: Level of Consciousness is awake, alert, obeys commands, Oriented to person, place, time, situation. Cardiovascular: Patient's skin is warm and dry. Respiratory: Airway is patent Respiratory effort is even, unlabored, Respiratory pattern is regular, symmetrical. Respiratory: Reports cough that is. GI: No signs and/or symptoms were reported involving the gastrointestinal system. Abdomen is flat, non-distended. : No signs and/or symptoms were reported regarding the genitourinary system. Derm: No signs and/or symptoms reported regarding the dermatologic system. Musculoskeletal: No signs and/or symptoms reported regarding the musculoskeletal system. 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 - Infectious Disease History:: Denies. - Social history:: Smoking status: Patient/guardian denies using tobacco, the patient reports quitting approximately 2.5 years ago, Patient uses alcohol, occasionally. Screenin:41 [facility] ED Fall Risk Assessment (Adult) History of falling in the last 3 months, me1 including since admission No falls in past 3 months (0 pts) Confusion or Disorientation No (0 pts) Intoxicated or Sedated No (0 pts) Impaired Gait No (0 pts) Mobility Assist Device Used No (0 pt) Altered Elimination No (0 pt) Score/Fall Risk Level 0 - 2 = Low Risk Maintained a safe environment, Provided non-skid footwear, Hourly rounding (assess needs \T\ fall precautionary measures) done. Abuse screen: Denies threats or abuse. Nutritional screening: No deficits noted. Tuberculosis screening: No symptoms or risk factors identified. Assessment: 17:41 General: Appears ill, well groomed, well developed, well nourished, Behavior is calm, me1 cooperative, appropriate for age, Reports throat hurts, cough, headache, sneezing, starting Tuesday. Pain: Complains of pain in throat Pain does not radiate. Pain currently is 4 out of 10 on a pain scale. Quality of pain is described as tender, Pain began 2-3 days ago. Is continuous. Neuro: Level of Consciousness is awake, alert, obeys commands, Oriented to person, place, time, situation, Appropriate for age. Neuro: Reports headache. Cardiovascular: Patient's skin is warm and dry. Respiratory: Reports cough that is Airway is patent Respiratory effort is even, unlabored, Respiratory pattern is regular, symmetrical. GI: No signs and/or symptoms were reported involving the gastrointestinal system. : No signs and/or symptoms were reported regarding the genitourinary system. EENT: Reports nasal congestion since Tuesday. Derm: Skin is intact, is healthy with good turgor, Skin is pink, warm \T\ dry. Musculoskeletal: No signs and/or symptoms reported regarding the musculoskeletal system. Vital Signs: 17:13 BP 125 / 90; Pulse 104; Resp 17; Temp 98.4(O); Pulse Ox 100% on R/A; MAP 101 mmHg; tm6 17:13 Weight 74.84 kg; Height 5 ft. 2 in. ; Pain 8/10; tm6 18:48 BP 122 / 84; Pulse 97; Resp 17; Temp 98.9; Pulse Ox 100% ; me1 17:13 Body Mass Index 30.18 (74.84 kg, 157.48 cm) tm6 17:13 Pain Scale: Adult tm6 ED Course: 17:10 Patient arrived in ED. im 17:15 Triage completed. tm6 17:15 Arm band placed on right wrist. tm6 17:18 Misha Umaña PA is PHCP. cp 17:18 Misha Muñoz MD is Attending Physician. cp 17:37 Lashaun Murphy, RN is Primary Nurse. me1 17:41 Patient has correct armband on for positive identification. Bed in low position. Call me1 light in reach. Side rails up X 1. Provided Education on: POC. Verbalized understanding. . Client placed on continuous cardiac and pulse oximetry monitoring. NIBP monitoring applied. Pulse ox on. NIBP on. 17:41 No provider procedures requiring assistance completed. COVID swab sent to lab. Flu me1 and/or RSV swab sent to lab. Strep swab sent to lab. Patient did not have IV access during this emergency room visit. Administered Medications: No medications were administered Medication: 17:41 VIS not applicable for this client. me1 Outcome: 18:33 Discharge ordered by MD. cp 18:48 Discharged to home ambulatory, me1 18:48 Condition: stable 18:48 Discharge instructions given to patient, Instructed on discharge instructions, follow up and referral plans. medication usage, Demonstrated understanding of instructions, follow-up care, medications, Prescriptions given X 2, 18:48 Patient left the ED. me1 Signatures: Misha Umaña PA PA cp Mendoza, Itzel Lashaun Murphy, LYNETTE RN me1 Jonathon Harper RN RN tm6 Corrections: (The following items were deleted from the chart) 17:41 17:13 Chief complaint: Patient states: throat hurts, cough, headache, sneezing, me1 starting Tuesday tm6
[2024-07-19 22:02] VITALS: O2SAT 100
[2024-07-19 22:03] VITALS: BP 122/84; TEMP 98.9
== END 2024-07-19 18:48 | disposition home or self-care (01) ==
LOC: ER 17:06
DX: J10.1 Influenza due to other identified influenza virus with other respiratory manifestations (principal); Z11.52 Encounter for screening for COVID-19
CPT/HCPCS: 36415; 87070; 87081; 87804; 87811; 99284

== ENCOUNTER 2024-07-30 15:11 | Emergency (ER) | payer SELFPAY ==
--- OUTSIDE RECORDS SUMMARY | 2024-07-30 15:15 | XMS REPORT | Continuity of Care Document ---
Author Name Unknown Address [address] [place] [address] [facility] thconnect Address [address] [place] [address] Care Team Providers Care Tomato Pulper Operator Name Role Phone Annemarie Ireland M.D. Primary Care Physician SREE LOPEZ Attending Clinician Unavailable Sree Lopez MD Attending Clinician QIANA VALDEZ Attending Clinician Unavailable Qiana Kinney Attending Clinician [phone] Elliot Fletcher Attending Clinician [phone] ELLIOT FRASER Attending Clinician Unavailable Amber Cardozo NP Attending Clinician [phone] Payers Payer Name Policy Type Policy Number Effective Date Expirati on Date Source MEDICAID PENDING PENDING 2021 00:00:00 Problems Condition Name Condition Details Condition Category Status Onset Date Resolution Date Last Treatment Date Treating Clinician Comments Source No known active problems No known active problems Disease [facility] Allergies, Adverse Reactions, Alerts Allergy Name Allergy Type Status Severity Reaction(s) Onset Date Inactive Date Treating Clinician Comments Source NO KNOWN ALLERGIE S Drug Class Active [facility] Social History Social Habit Start Date Stop Date Quantity Comments Source History of tobacco use Cigarette Smoker [facility] Exposure to SARS-CoV-2 (event) 2022-08-31 00:00:00 2022-09-10 12:55:00 Not sure [facility] Cigarettes smoked current (pack per day) - Reported 2017-07-12 00:00:00 2017-07-12 00:00:00 [facility] Tobacco use and exposure 2017-07-12 00:00:00 2017-07-12 00:00:00 Smokeless tobacco non-user [facility] Sex Assigned At 1995 00:00:00 1995 00:00:00 [facility] Smoking Status Start Date Stop Date Source Smokes tobacco daily 2017-07-12 00:00:00 [facility] Medications Ordered Medication Name Filled Medication Name [...] On Tue09/10/22 at 1330, VIVIEN [facility] hydrOXYzine (VISTARIL) 25 mg capsule 09-10 00:00: 00 Yes [id number] 25mg Take 1 capsule by mouth 2 (two) times daily as needed for Anxiety. [facility] TAKE 1 TABLET BY MOUTH TWICE DAILY NEEDED 2023-0 1-06 00:00: 00 Yes Mariusz Adams Karlo Dose Unknown 2022-0 6-02 00:00: 00 No Dose Unknown 2022-0 6-02 00:00: 00 No Dose Unknown 2022-0 6-02 00:00: 00 Yes Mariusz Adams Karlo Dose Unknown 2022-0 6-02 00:00: 00 Yes Mariusz Adams Karlo Dose Unknown 2022-0 4-17 00:00: 00 No Dose Unknown 2022-0 4-17 00:00: 00 No Dose Unknown 2022-0 4-17 00:00: 00 Yes Mariusz Adams Kralo Dose Unknown 2022-0 4-17 00:00: 00 Yes Mariusz Adams Karlo Dose Unknown 2022-0 3-12 00:00: 00 No Dose Unknown 2022-0 3-12 00:00: 00 No Dose Unknown 2022-0 3-12 00:00: 00 Yes Mariusz Adams Karlo Dose Unknown 2022-0 3-12 00:00: 00 Yes Mariusz F Karlo Dose Unknown 2022-0 3-11 00:00: 00 Yes Mariusz Adams Karlo Dose Unknown 2022-0 3-11 00:00: 00 Yes Mariusz F Karlo Dose Unknown 2022-0 3-11 00:00: 00 [...] Site: Pelvic
Duration of Therapy: 7 days [facility] NaCl 0.9% (NS) bolus infusion 1,000 mL 2020-08 02:00: 00 08-25 02:45 :00 No 1000mL at 999 mL/hr, 1,000 mL, IV Infusion, ONCE, 1 dose, On Tue08/24/21 at 2000, VIVIEN [facility] doxycycline hyclate 100 mg capsule 2020-08 00:00: 00 09-01 05:59 :00 No [id number] 100mg Take 1 capsule by mouth 2 (two) times daily for 7 days. [facility] traMADoL (ULTRAM) tablet 50 mg 03-26 22:15: 00 03-26 21:15 :00 No 50mg 50 mg, Oral, ONCE, 1 dose, Nadia 03/26/21 at 1715, Routine [facility] traMADoL 50 mg tablet 03-26 00:00: 00 Yes [id number] 50mg Take 1 tablet by mouth every 6 (six) hours as needed for Pain (scale 7-10). Indication s: acute pain [facility] clindamycin 150 mg capsule 03-26 00:00: 00 04-06 04:59 :00 No [id number] 450mg Take 3 capsules by mouth 3 (three) times daily for 10 days. [facility] dicyclomine (BENTYL) injection 20 mg 12-10 13:00: 00 Yes 20mg 20 mg, Intramuscu lar, QID, First dose on Tue12/10/20 at 0800, Until Discontinu ed, Routine [facility] ketorolac (TORADOL) injection 30 mg 12-10 04:45: 00 12-10 03:51 :00 No 30mg 30 mg, Slow IV Push, ONCE, 1 dose, 4/13/21 at 2345, Routine
membership director approving Restricted medication : AMBER CARDOZO [facility] dicyclomine 20 mg tablet 12-10 00:00: 00 Yes [id number] 20mg Take 1 tablet by mouth 4 (four) times daily as needed for Abdominal pain. [facility] indomethaci n 50 mg capsule 12-10 00:00: 00 12-18 04:59 :00 No [id number] 50mg Take 1 capsule by mouth 2 (two) times daily with meals for 7 days. [facility] Flonase Allergy Relief 50 mcg/actuati [...] ONCE, 1 dose, Tue06/16/20 at 1700, VIVIEN [facility] ketorolac (TORADOL) injection 60 mg 2019-08 22:00: 00 06-16 21:07 :00 No 60mg 60 mg, Intramuscu lar, ONCE, 1 dose, Tue06/16/20 at 1700, VIVIEN
Fa culty member approving Restricted medication : EMERGENCY ROOM, [facility] penicillin v potassium 500 mg tablet 2019-08 00:00: 00 06-24 04:59 :00 No [id number] 500mg Take 1 tablet by mouth 4 (four) times daily for 7 days. [facility] acetaminoph en-codeine 300-30 mg tablet 2019-08 00:00: 00 06-24 04:59 :00 No [id number] 1{tbl} Take 1 tablet by mouth every 6 (six) hours as needed for Pain (scale 7-10) for up to 7 days. Indication s: acute pain [facility] codeine-gua ifenesin 10-100 mg/5 mL solution 2016-08 00:00: 00 03-26 00:00 :00 No 5mL Take 5 mL by mouth every 6 (six) hours as needed for Cough. [facility] ondansetron 4 mg disintegrat ing tablet 2016-08 00:00: 00 03-26 00:00 :00 No 4mg Take 1 tablet by mouth every 8 (eight) hours as needed for Nausea and Vomiting (N/V). [facility] ibuprofen 800 mg tablet 12-29 00:00: 00 Yes 1mg Mariusz Dietrich ibuprofen 800 mg tablet 12-29 00:00: 00 No 1mg Immunizations Ordered Immunization Name Filled Immunization Name Date Status Comments Source SARS-COV-2 COVID-19 PFIZER VACCINE 2021-01-17 00:00:00 Completed [facility] SARS-COV-2 COVID-19 PFIZER VACCINE 2021-01-17 00:00:00 Completed [facility] SARS-COV-2 COVID-19 PFIZER VACCINE 2021-01-17 00:00:00 Completed [facility] SARS-COV-2 COVID-19 PFIZER VACCINE 2020-12-20 00:00:00 Completed [facility] SARS-COV-2 COVID-19 PFIZER VACCINE 2020-12-20 00:00:00 Completed [facility] SARS-COV-2 COVID-19 PFIZER VACCINE 2020-12-20 00:00:00 Completed [facility] Influenza, seasonal, inj Influenza, seasonal, inj 2017-08-24 00:00:00 Completed Mariusz Dietrich Influenza, seasonal, inj 2017-08-24 00:00:00 Completed Hep A-Hep B Hep A-Hep B 2017-04-06 00:00:00 Completed Mariusz Dietrich Hep A-Hep B 2017-04-06 00:00:00 Completed Vital Signs Vital Name Observation Time Observation Value Comments S celio Systolic blood pressure 2022-09-10 18:57:00 180 mm[Hg] [facility] Diastolic blood pressure 2022-09-10 18:57:00 115 mm[Hg] [facility] Heart rate 2022-09-10 18:57:00 90 /min [facility] Body temperature 2022-09-10 18:57:00 36.83 Ariane [facility] Respiratory rate 2022-09-10 18:57:00 20 /min [facility] Body height 2022-09-10 18:57:00 157.5 cm [facility] Body weight 2022-09-10 18:57:00 79.379 kg [facility] BMI 2022-09-10 18:57:00 32.01 kg/m2 [facility] Oxygen saturation in Arterial blood by Pulse oximetry 2022-09-10 18:57:00 99 /min [facility] Systolic blood pressure 2021-08-25 02:00:00 120 mm[Hg] [facility] Diastolic blood pressure 2021-08-25 02:00:00 82 mm[Hg] [facility] Heart rate 2021-08-25 02:00:00 82 /min [facility] Respiratory rate 2021-08-25 02:00:00 15 /min [facility] Oxygen saturation in Arterial blood by Pulse oximetry 2021-08-25 02:00:00 100 /min [facility] Body temperature 2021-08-25 00:45:00 37.17 Ariane [facility] Body weight 2021-08-25 00:45:00 86.183 kg [facility] BMI 2021-08-25 00:45:00 34.75 kg/m2 [facility] Systolic blood pressure 2021 20:13:00 108 mm[Hg] [facility] Diastolic blood pressure 2021 20:13:00 86 mm[Hg] [facility] Heart rate 2021 20:13:00 90 /min [facility] Body temperature 2021 20:13:00 37.5 Ariane [facility] Respiratory rate 2021 20:13:00 18 /min [facility] Body height 2021 20:13:00 157.5 cm [facility] Body weight 2021 20:13:00 88.905 kg [facility] BMI 2021 20:13:00 35.85 kg/m2 [facility] Oxygen saturation in Arterial blood by Pulse oximetry 2021 20:13:00 100 /min [facility] Systolic blood pressure 2020-12-10 00:00:00 120 mm[Hg] [facility] Diastolic blood pressure 2020-12-10 00:00:00 74 mm[Hg] [facility] Heart rate 2020-12-10 00:00:00 71 /min [facility] Body temperature 2020-12-10 00:00:00 37.5 Ariane [facility] Respiratory rate 2020-12-10 00:00:00 18 /min [facility] Body weight 2020-12-10 00:00:00 86.183 kg [facility] BMI 2020-12-10 00:00:00 34.75 kg/m2 [facility] Oxygen saturation in Arterial blood by Pulse oximetry 2020-12-10 00:00:00 97 /min [facility] Systolic blood pressure 2020-12-10 00:00:00 120 mm[Hg] [facility] Diastolic blood pressure 2020-12-10 00:00:00 74 mm[Hg] [facility] Heart rate 2020-12-10 00:00:00 71 /min [facility] Body temperature 2020-12-10 00:00:00 37.5 Ariane [facility] Respiratory rate 2020-12-10 00:00:00 18 /min [facility] Body weight 2020-12-10 00:00:00 86.183 kg [facility] BMI 2020-12-10 00:00:00 34.75 kg/m2 [facility] Oxygen saturation in Arterial blood by Pulse oximetry 2020-12-10 00:00:00 97 /min [facility] Systolic blood pressure 2020-06-16 20:21:00 132 mm[Hg] [facility] Diastolic blood pressure 2020-06-16 20:21:00 74 mm[Hg] [facility] Heart rate 2020-06-16 20:21:00 82 /min [facility] Body temperature 2020-06-16 20:21:00 36.72 Ariane [facility] Respiratory rate 2020-06-16 20:21:00 20 /min [facility] Body height 2020-06-16 20:21:00 157.5 cm [facility] Body weight 2020-06-16 20:21:00 86.183 kg [facility] BMI 2020-06-16 20:21:00 34.75 kg/m2 [facility] Oxygen saturation in Arterial blood by Pulse oximetry 2020-06-16 20:21:00 100 /min [facility] Systolic blood pressure 2020-06-16 20:21:00 132 mm[Hg] [facility] Diastolic blood pressure 2020-06-16 20:21:00 74 mm[Hg] [facility] Heart rate 2020-06-16 20:21:00 82 /min [facility] Body temperature 2020-06-16 20:21:00 36.72 Ariane [facility] Respiratory rate 2020-06-16 20:21:00 20 /min [facility] Body height 2020-06-16 20:21:00 157.5 cm [facility] Body weight 2020-06-16 20:21:00 86.183 kg [facility] BMI 2020-06-16 20:21:00 34.75 kg/m2 [facility] Oxygen saturation in Arterial blood by Pulse oximetry 2020-06-16 20:21:00 100 /min [facility] BP Systolic 2024-05-25 11:34:00 135 mm[Hg] Step [...] Source POCT TEST 2022-09-10 19:42:00 Sree Lopez [facility] URINE DRUG (IMMUNOASSAY) - COMPREHENSIVE DRUG SCREEN 2022-09-10 19:41:00 Sree Lopez [facility] URINALYSIS 2022-09-10 19:41:00 Sree Lopez [facility] CONSENT/REFUSAL FOR DIAGNOSIS AND TREATMENT 2022-09-10 18:46:57 Doctor Unassigned, [place] [facility] POCT TEST 2021-08-25 01:28:00 Aviva Valdez [facility] BASIC METABOLIC PANEL (NA, K, CL, CO2, GLUCOSE, BUN, CREATININE, CA) 2021-08-25 01:26:00 Qiana Valdez [facility] CBC WITH DIFF 2021-08-25 01:26:00 Qiana Valdez [facility] URINALYSIS 2021-08-25 01:26:00 Qiana Valdez [facility] CONSENT/REFUSAL FOR DIAGNOSIS AND TREATMENT 2021-08-25 00:39:27 Doctor Unassigned, [place] [facility] CONSENT/REFUSAL FOR DIAGNOSIS AND TREATMENT 2021 20:08:24 Doctor Unassigned, [place] [facility] CT ABDOMEN PELVIS WO CONTRAST 2020-12-10 04:09:17 Amber Cardozo [facility] URINE DRUG (IMMUNOASSAY) - 4 ER PANEL 2020-12-10 03:57:00 Amber Cardozo [facility] POCT TEST 2020-12-10 01:46:00 Johnnie Olivarez [facility] LIPASE 2020-12-10 01:44:00 Johnnie Olivarez [facility] COMP. METABOLIC PANEL (61896) 2020-12-10 01:44:00 Johnnie Olivarez [facility] CBC WITH DIFF 2020-12-10 01:44:00 Johnnie Olivarez [facility] URINALYSIS 2020-12-10 01:44:00 Johnnie Olivarez [facility] NOTICE OF PRIVACY PRACTICES 2020-12-09 23:56:35 Doctor Unassigned, [place] [facility] CONSENT/REFUSAL FOR DIAGNOSIS AND TREATMENT 2020-12-09 23:55:46 Doctor Unassigned, [place] [facility] CONSENT/REFUSAL FOR DIAGNOSIS AND TREATMENT 2020-06-16 20:19:26 Doctor Unassigned, [place] [facility] Plan of Care Planned Activity Planned Date Details Comments Source Goal Plan of Care Note [code = 63303-8] Goal Plan of Care Note [code = 30714-1] Goal Plan of Care Note [code = 53153-0] Goal Plan of Care Note [code = 69836-3] Goal Plan of Care Note [code = 01249-2] Goal Plan of Care Note [code = 37818-0] Goal Plan of Care Note [code = 63240-2] Goal Plan of Care Note [code = 32830-8] Goal Plan of Care Note [code = 89582-8] Goal Plan of Care Note [code = 73367-8] Goal Plan of Care Note [code = 83910-3] Goal Plan of Care Note [code = 16535-6] Goal Plan of Care Note [code = 96776-2] Goal Plan of Care Note [code = 49831-9] Goal Plan of Care Note [code = 07363-8] Goal Plan of Care Note [code = 14503-7] Goal Plan of Care Note [code = 23926-4] Goal Plan of Care Note [code = 26025-8] Goal Plan of Care Note [code = 02630-0] Goal Plan of Care Note [code = 99745-3] Goal Plan of Care Note [code = 28099-3] Goal Plan of Care Note [code = 15056-3] Goal Plan of Care Note [code = 29366-6] Goal Plan of Care Note [code = 28566-6] Goal Plan of Care Note [code = 62216-3] Goal Plan of Care Note [code = 95181-0] Encounters Start Date/Time End Date/Time Encounter Type Admission Type Attending [facility] Care Facility Care Department Encounter ID Source 2022-09-11 22:37:13 Outpatient [facility] [id number] [facility] 2024-07-28 09:12:19 2024-07-28 09:12:19 Outpatient [facility] [id number] Mariusz Angie Karlo 2024-07-27 16:34:15 2024-07-27 16:34:15 Outpatient [facility] [id number] Mariusz Angie Karlo 2024-05-25 11:29:14 2024-05-25 11:29:14 Outpatient [facility]FA [facility] [id number] Mariusz Angie Karlo 2024-05-25 00:00:00 2024-05-25 00:00:00 Outpatient Visit [facility] [id number] Mariusz Dietrich 2024-05-07 16:45:19 2024-05-07 16:45:19 Outpatient SFA [facility] [id number] Mariusz Dietrich 2024-05-07 00:00:00 2024-05-07 00:00:00 Outpatient Visit [facility] [id number] Mariusz Dietrich 2024-05-01 09:03:27 2024-05-01 09:03:27 Outpatient SFA [facility] [id number] Mariusz Dietrich 2024-05-01 00:00:00 2024-05-01 00:00:00 Outpatient Visit [facility] [id number] Mariusz Dietrich 2024-04-30 13:03:22 2024-04-30 13:03:22 Outpatient [facility] [id number] Mariusz Dietrich 2023-03-15 08:16:23 2023-03-15 08:16:23 Outpatient [facility] [id number] Mariusz Adams Karlo 2022-09-10 12:58:00 2022-09-10 16:23:00 Emergency X SREE LOPEZ [facility] ERT [id number] [facility] 2022-09-10 12:58:00 2022-09-10 16:23:00 Emergency Sree Lopez J [facility] [id number] [id number] [id number] [facility] 2022-04-02 00:00:00 2022-04-02 00:00:00 Outpatient Visit [id number] 2021-08-24 18:46:00 2021-08-24 21:11:00 Emergency X QIANA VALDEZ [facility] ERT [id number] [facility] 2021-08-24 18:46:00 2021-08-24 21:11:00 Emergency Qiana Valdez [facility] [id number] [id number] [id number] [facility] 2021 15:14:00 2021 16:17:00 Emergency Elliot Fraser [facility] [id number] [id number] [facility] 2021 15:08:00 2021 15:08:00 Emergency X ELLIOT FRASER [facility] ERT [id number] [facility] 2020-12-09 19:02:00 2020-12-10 01:46:00 Emergency Amber Cardozo [facility] [id number] 350.1.13.10 4.2.7.2.686 [id number] 2020-12-09 19:02:00 2020-12-10 01:46:00 Emergency Amber Cardozo [facility] [id number] [id number] 4.2.7.2.686 [id number] [facility] 2020-12-09 18:54:00 2020-12-09 18:54:00 Emergency X [facility] ERT [id number] [facility] 2020-06-16 15:24:00 2020-06-16 17:00:00 Emergency Qiana Valdez [facility] [id number] 350.1.13.10 4.2.7.2.686 [id number] 2020-06-16 15:24:00 2020-06-16 17:00:00 Emergency Qiana Valdez [facility] [id number] 350.1.13.10 4.2.7.2.686 [id number] [facility] 2020-06-16 15:18:00 2020-06-16 15:18:00 Emergency X [facility] ERT [id number] [facility] 2020-01-27 14:14:00 2020-01-27 14:14:00 Emergency X [facility] ERT [id number] [facility] Results Test Description Test Time Test Comments Results Result Co mments Source Mariusz Adams AustinCT/NG, NAAT, [id number] 23:09:43* Test Item Value Reference Range Interpretation Comme nts CHLAMYDIA, NAAT, URINE (test code = 81495) NEGATIVE NEGATIVE Testing is perfo rmed with Ronit JAGDEEP 6800/8800 systems usingreal-time polymerase chain reaction (PCR) method. A negative result does not exclude low level infection, specimensampling error, or collection error. GONORRHEA, NAAT, URINE (test code = 51504) NEGATIVE NEGATIVE Testing is perfo rmed with Ronit JAGDEEP 6800/8800 systems usingreal-time polymerase chain reaction (PCR) method. A negative result does not exclude low level infection, specimensampling error, or collection error. CT/NG, NAAT, [id number] 00:00:00* Test Item Value Reference Range Interpretation Comme nts CHLAMYDIA, NAAT, URINE (test code = 68534) NEGATIVE GONORRHEA, NAAT, URINE (test code = 97049) NEGATIVE Mariusz Adams AustinCT/NG, NAAT, [id number] 00:00:00* Test Item Value Reference Range Interpretation Comme nts CHLAMYDIA, NAAT, URINE (test code = 81195) NEGATIVE GONORRHEA, NAAT, URINE (test code = 55288) NEGATIVE Mariusz DietrichHERPES SIMPLEX AB, [id number] 18:44:31* Test Item Value Reference Range Interpretation Comme nts HERPES SIMPLEX AB, IgM (test code = 83818) 1.97 INDEX SEE BELOW H IMPORTANT NOTE: HSV IgM ASSAYS ARE NOT TYPE-SPECIFIC. THE BIOLOGICALIgM RESPONSE WITH PRIMARY INFECTIONS IS VARIABLE AND MAY BEUNDETECTABLE; WITH RECURRENT INFECTIONS IgM MAY OR MAY NOT BEDETECTED. FALSE POSITIVE RESULTS UNRELATED TO HSV INFECTION CAN OCCURWITH HSV IgM ASSAYS. ALL RESULTS SHOULD BE REVIEWED IN CLINICALCONTEXT, AND COMPARISON TO ACUTE OR CONVALESCENT TYPE-SPECIFIC [id number] HSV2 IgG ASSAYS SHOULD BE CONSIDERED. INTERPRETATION UNITS RANGE ----- ----- NEGATIVE INDEX <=0.89 EQUIVOCAL INDEX 0.90-1.09 POSITIVE INDEX >=1.10 HEPATITIS PANEL, [id number] 05:46:11* Test Item Value Reference Range Interpretation [...] infection. INTERPRETATION HEPATITIS B: (test code = 20097) (NOTE) Hepatitis B sero logy consistent with immunity to hepatitis Bfrom previous hepatitis B vaccination. INTERPRETATION HEPATITIS C: (test code = 11725) (NOTE) Hepatitis C sero logy shows no evidence of exposure to hepatitisC virus at this time. It can take up to 12 months after exposure tothe hepatitis C virus for antibodies to become detectable in the blood in certain patients. HERPES SIMPLEX 1/2 AB, IgG [id number] 05:46:11* Test Item Value Reference Range Interpretation Comme nts HERPES SIMPLEX 1 AB, IgG (test code = 25329) 0.020 INDEX SEE BELOW INTERPRETATION U NITS RANGE ----- ----- NON-REACTIVE INDEX <1.000 REACTIVE INDEX >=1.000 HERPES SIMPLEX 2 AB, IgG (test code = 42715) 419.000 INDEX SEE BELOW H INTERPRETATION U NITS RANGE ----- ----- NON-REACTIVE INDEX <1.000 REACTIVE INDEX >=1.000 HIV 1/2 4TH GEN, RFLX [id number] 05:46:11* Test Item Value Reference Range Interpretation Comme nts HIV 1/2 4TH GEN, RFLX CONF ( test code = 3514) NON-REACTIVE NON-REACTIVE HEPATITIS A [id number] 05:46:11* Test Item Value Reference Range Interpretation Comme nts HEPATITIS A IgM (test code = 2728) NON-REACTIVE NON-REACTIVE UNLESS OTHERW ISE INDICATED, ALL TESTING PERFORMED AT [facility] [address] [place] [address] LEAD [employer] DEVELOPER: ALONSO SOTO M.D. [place] NUMBER [id number] [facility] [place]. [id number] 04:26:03* Test Item Value Reference Range Interpretation Comme nts RPR RESULT (test code = 3501) NON-REACTIVE NON-REACTIVE RPR TITER (test code = 3500) NOT INDIC. TITER NOT INDIC. [id number] 00:00:00* Test Item Value Reference Range Interpretation Comme nts RPR RESULT (test code = 3501) NON-REACTIVE RPR TITER (test code = 3500) NOT INDIC. TITER Mariusz DietrichHIV 1/2 4TH GEN, RFLX [id number] 00:00:00* Test Item Value Reference Range Interpretation Comme nts HIV 1/2 4TH GEN, RFLX CONF ( test code = 3514) NON-REACTIVE Mariusz Adams AustinHEPATITIS A IgM [REFLEX]2024-05-02 00:00:00* Test Item Value Reference Range Interpretation Comme nts HEPATITIS A IgM (test code = 2728) NON-REACTIVE Mariusz Adams AustinHEPATITIS PROFILE (A,B,C)2024-05-02 00:00:00* Test Item Value Reference [...] (NOTE) INTERPRETATION HEPATITIS B: (test code = 88169) (NOTE) INTERPRETATION HEPATITIS C: (test code = 54153) (NOTE) Mariusz DietrichHERPES SIMPLEX AB, [id number] 00:00:00* Test Item Value Reference Range Interpretation Comme nts HERPES SIMPLEX AB, IgM (test code = 41469) 1.97 INDEX Mariusz DietrichHERPES SIMPLEX 1/2 ANTIBODY, [id number] 00:00:00* Test Item Value Reference Range Interpretation Comme nts HERPES SIMPLEX 1 AB, IgG (te st code = 19348) 0.020 INDEX HERPES SIMPLEX 2 AB, IgG (te st code = 00792) 419.000 INDEX Mariusz [id number] 00:00:00* Test Item Value Reference Range Interpretation Comme nts RPR RESULT (test code = 3501) NON-REACTIVE RPR TITER (test code = 3500) NOT INDIC. TITER Mariusz Adams AustinHIV 1/2 4TH GEN, RFLX [id number] 00:00:00* Test Item Value Reference Range Interpretation [...] (NOTE) INTERPRETATION HEPATITIS B: (test code = 50327) (NOTE) INTERPRETATION HEPATITIS C: (test code = 95526) (NOTE) Mariusz DietrichHERPES SIMPLEX AB, [id number] 00:00:00* Test Item Value Reference Range Interpretation Comme nts HERPES SIMPLEX AB, IgM (test code = 91522) 1.97 INDEX Mariusz DietrichHERPES SIMPLEX 1/2 ANTIBODY, [id number] 00:00:00* Test Item Value Reference Range Interpretation Comme nts HERPES SIMPLEX 1 AB, IgG (te st code = 57864) 0.020 INDEX HERPES SIMPLEX 2 AB, IgG (te st code = 22505) 419.000 INDEX Mariusz Adams AustinPOCT [id number] 19:42:00* Test Item Value Reference Range Interpretation Comme nts POCT PREG (test code = 1605) negative On board controls acceptable with C Line (test code = 3574) present POCT PREG LOT # (test code = 3575) [id number] POCT PREG TEST DATE ( test code = 3576) 11-27-2023 Lab Interpretation (test cod e = 42299-8) [facility], [facility]PREP, [id number] 09:47:06 * Test Item Value Reference Range Interpretation Comme nts SOURCE: (test code = 8001) Cervical/Endoce rvical SLIDES: (test code = 8011) 1 LMP: (test code = 8021) 10/27/2021 SPECIMEN ADEQUACY: (test code = 87041) (NOTE) Satisfactory for evaluation. Endocervical cells/transformation zone component present. INTERPRETATION: (test code = 41410) NILM/NO EPITH. ABNORMALITY;SEE BELOW --- - NEGATIVE FOR INTRAEPITHELIAL LESION OR MALIGNANCY (NILM) ---- CERTIFIED PROFESSIONAL ERGONOMIST : (test code = 8101) Nery Macedo LOCATION: (test code = 94742) (NOTE) Specimens proces sed and interpreted at [facility], [address] [place] [address], , CLIA: [id number] CPT: (test code = 8140) (NOTE) 22166 UNLESS OTH ERWISE INDICATED, COMPUTER AIDED AND CERTIFIED PROFESSIONAL ERGONOMIST SCREENING PERFORMED. The Pap test is a screening test with an inherent, but low probability of error. Your patient should be reminded to consult you immediately if she experiences any suspicious signs or symptoms, regardless of her Pap test result. An alternate report format containing images or consolidated prior Pap history is available as applicable. UNLESS OTHERWISE INDICATED, ALL TESTING PERFORMED [facility] [address] [place] [id number] LEAD IOS DEVELOPER: ELIF MADISON M.D. CLIA NUMBER [id number] [facility] [place]. [id number] PAP TEST, THINPREP, [id number] 00:00:00* Test Item Value Reference Range Interpretation Comme nts SOURCE: (test code = 8001) Cervical/Endocervical SLIDES: (test code = 8011) 1 LMP: (test code = 8021) 10/27/2021 SPECIMEN ADEQUACY: (test code = 76713) (NOTE) INTERPRETATION: (test code = 72625) NILM/NO EPITH. ABNORMALITY;SEE BELOW CERTIFIED PROFESSIONAL ERGONOMIST: (test code = 8101) Nery Macedo LOCATION: (test code = 05037) (NOTE) CPT: (test code = 8140) (NOTE) PAP TEST, THINPREP, [id number] 00:00:00* Test Item Value Reference Range Interpretation Comme nts SOURCE: (test code = 8001) Cervical/Endocervical SLIDES: (test code = 8011) 1 LMP: (test code = 8021) 10/27/2021 SPECIMEN ADEQUACY: (test code = 37489) (NOTE) INTERPRETATION: (test code = 40212) NILM/NO EPITH. ABNORMALITY;SEE BELOW CERTIFIED PROFESSIONAL ERGONOMIST: (test code = 8101) Nery Macedo LOCATION: (test code = 29514) (NOTE) CPT: (test code = 8140) (NOTE) Mariusz MolinaP TEST, THINPREP, [id number] 00:00:00* Test Item Value Reference Range Interpretation Comme nts SOURCE: (test code = 8001) Cervical/Endocervical SLIDES: (test code = 8011) 1 LMP: (test code = 8021) 10/27/2021 SPECIMEN ADEQUACY: (test code = 25332) (NOTE) INTERPRETATION: (test code = 48948) NILM/NO EPITH. ABNORMALITY;SEE BELOW CERTIFIED PROFESSIONAL ERGONOMIST: (test code = 8101) [facility]: (test code = 11840) (NOTE) CPT: (test code = 8140) (NOTE) Mariusz DietrichPAP TEST, THINPREP, [id number] 00:00:00* Test Item Value Reference Range Interpretation Comme nts SOURCE: (test code = 8001) Cervical/Endocervical SLIDES: (test code = 8011) 1 LMP: (test code = 8021) 10/27/2021 SPECIMEN ADEQUACY: (test code = 42715) (NOTE) INTERPRETATION: (test code = 16095) NILM/NO EPITH. ABNORMALITY;SEE BELOW CERTIFIED PROFESSIONAL ERGONOMIST: (test code = 8101) [facility] LOCATION: (test code = 79452) (NOTE) CPT: (test code = 8140) (NOTE) Mariusz Adams AustinVAGINAL PATHOGENS DNA [id number] 14:50:28* Test Item Value Reference Range Interpretation Comme nts DAMIR SPECIES (test code = 05020) NEGATIVE NEGATIVE G. VAGINALIS (test code = 73417) NEGATIVE NEGATIVE T. VAGINALIS (test code = 09618) NEGATIVE NEGATIVE UNLESS OTHERWISE INDICATED, ALL TESTING PERFORMED [facility] [address] [place] [address] LEAD IOS DEVELOPER: ELIF MADISON M.D. CLIA NUMBER [id number] [facility] [place]. [id number] 06:56:09* Test Item Value Reference Range Interpretation Comme nts RPR RESULT (test code = 3501) NON-REACTIVE NON-REACTIVE RPR TITER (test code = 3500) NOT INDIC. TITER NOT INDIC. HIV 1/2 4TH GEN, RFLX [id number] 05:54:17* Test Item Value Reference Range Interpretation Comme nts HIV 1/2 4TH GEN, RFLX CONF ( test code = 3514) NON-REACTIVE NON-REACTIVE HEPATITIS PANEL, [id number] 05:54:17* Test Item Value Reference Range Interpretation Comme nts HEPATITIS A IgM (test code = 59138) NON-REACTIVE NON-REACTIVE HEPATITIS B CORE IgM (test code = 4644) NON-REACTIVE NON-REACTIVE HEPATITIS B SURF AG (test code = 2739) NON-REACTIVE NON-REACTIVE HEPATITIS C ANTIBODY (test code = 4675) NON-REACTIVE NON-REACTIVE INTERPRETATION HEPATITIS A: (test code = 2552) (NOTE) Hepatitis A serology shows no evidence of acute hepatitis A. INTERPRETATION HEPATITIS B: (test code = 66870) (NOTE) Hepatitis B serology shows no evidence of acute hepatitis B andno indication of exposure to hepatitis B virus in the previous jie eight months. INTERPRETATION HEPATITIS C: (test code = 87907) (NOTE) Hepatitis C serology shows no evidence of exposure to hepatitisC virus at this time. It can take up to 12 months after exposure tothe hepatitis C virus for antibodies to become detectable in the blood in certain patients. [id number] 00:00:00* Test Item Value Reference Range Interpretation Comme nts RPR RESULT (test code = 3501) NON-REACTIVE RPR TITER (test code = 3500) NOT INDIC. TITER Mariusz Adams AustinHIV AB/AG COMBO RFLX [id number] 00:00:00* Test Item Value Reference Range Interpretation Comme nts HIV 1/2 4TH GEN, RFLX CONF ( test code = 3514) NON-REACTIVE VAGINAL PATHOGENS DNA [id number] 00:00:00* Test Item Value Reference Range Interpretation Comme nts DAMIR SPECIES (test code = 25451) NEGATIVE G. VAGINALIS (test code = 96440) NEGATIVE T. VAGINALIS (test code = 31144) NEGATIVE Mariusz Adams AustinHIV AB/AG COMBO RFLX [id number] 00:00:00* Test Item Value Reference Range Interpretation Comme nts HIV 1/2 4TH GEN, RFLX CONF ( test code = 3514) NON-REACTIVE Mariusz Adams AustinACUTE HEPATITIS [id number] 00:00:00* Test Item Value Reference Range Interpretation Comme nts HEPATITIS A IgM (test code = 48944) NON-REACTIVE HEPATITIS B CORE IgM (test c ode = 4644) NON-REACTIVE HEPATITIS B SURF AG (test co de = 2739) NON-REACTIVE HEPATITIS C ANTIBODY (test c ode = 4675) NON-REACTIVE INTERPRETATION HEPATITIS A: (test code = 2552) (NOTE) INTERPRETATION HEPATITIS B: (test code = 44380) (NOTE) INTERPRETATION HEPATITIS C: (test code = 57650) (NOTE) [id number] 00:00:00* Test Item Value Reference Range Interpretation Comme nts RPR RESULT (test code = 3501) NON-REACTIVE RPR TITER (test code = 3500) NOT INDIC. TITER ACUTE HEPATITIS [id number] 00:00:00* Test Item Value Reference Range Interpretation Comme nts HEPATITIS A IgM (test code = 95147) NON-REACTIVE HEPATITIS B CORE IgM (test c ode = 4644) NON-REACTIVE HEPATITIS B SURF AG (test co de = 2739) NON-REACTIVE HEPATITIS C ANTIBODY (test c ode = 4675) NON-REACTIVE INTERPRETATION HEPATITIS A: (test code = 2552) (NOTE) INTERPRETATION HEPATITIS B: (test code = 98365) (NOTE) INTERPRETATION HEPATITIS C: (test code = 03864) (NOTE) Mariusz [id number] 00:00:00* Test Item Value Reference Range Interpretation Comme nts RPR RESULT (test code = 3501) NON-REACTIVE RPR TITER (test code = 3500) NOT INDIC. TITER Mariusz DietrichVAGINAL PATHOGENS DNA [id number] 00:00:00* Test Item Value Reference Range Interpretation Comme nts DAMIR SPECIES (test code = 54502) NEGATIVE G. VAGINALIS (test code = 03466) NEGATIVE T. VAGINALIS (test code = 80048) NEGATIVE VAGINAL PATHOGENS DNA [id number] 00:00:00* Test Item Value Reference Range Interpretation Comme nts DAMIR SPECIES (test code = 27942) NEGATIVE G. VAGINALIS (test code = 95120) NEGATIVE T. VAGINALIS (test code = 31072) NEGATIVE Mariusz DietrichHIV AB/AG COMBO RFLX [id number] 00:00:00* Test Item Value Reference Range Interpretation Comme nts HIV 1/2 4TH GEN, RFLX CONF ( test code = 3514) NON-REACTIVE Mariusz DietrichACUTE HEPATITIS [id number] 00:00:00* Test Item Value Reference Range Interpretation Comme nts HEPATITIS A IgM (test code = 26488) NON-REACTIVE HEPATITIS B CORE IgM (test c ode = 4644) NON-REACTIVE HEPATITIS B SURF AG (test co de = 2739) NON-REACTIVE HEPATITIS C ANTIBODY (test c ode = 4675) NON-REACTIVE INTERPRETATION HEPATITIS A: (test code = 2552) (NOTE) INTERPRETATION HEPATITIS B: (test code = 58548) (NOTE) INTERPRETATION HEPATITIS C: (test code = 55580) (NOTE) Mariusz [id number] 00:00:00* Test Item Value Reference Range Interpretation Comme nts RPR RESULT (test code = 3501) NON-REACTIVE RPR TITER (test code = 3500) NOT INDIC. TITER Mariusz DietrichVAGINAL PATHOGENS DNA [id number] 00:00:00* Test Item Value Reference Range Interpretation Comme nts DAMIR SPECIES (test code = 22116) NEGATIVE G. VAGINALIS (test code = 44571) NEGATIVE T. VAGINALIS (test code = 55557) NEGATIVE Mariusz DietrichHIV AB/AG COMBO RFLX [id number] 00:00:00* Test Item Value Reference Range Interpretation Comme nts HIV 1/2 4TH GEN, RFLX CONF ( test code = 3514) NON-REACTIVE Mariusz DietrichACUTE HEPATITIS [id number] 00:00:00* Test Item Value Reference Range Interpretation Comme nts HEPATITIS A IgM (test code = 64608) NON-REACTIVE HEPATITIS B CORE IgM (test c ode = 4644) NON-REACTIVE HEPATITIS B SURF AG (test co de = 2739) NON-REACTIVE HEPATITIS C ANTIBODY (test c ode = 4675) NON-REACTIVE INTERPRETATION HEPATITIS A: (test code = 2552) (NOTE) INTERPRETATION HEPATITIS B: (test code = 37114) (NOTE) INTERPRETATION HEPATITIS C: (test code = 56232) (NOTE) Mariusz DietrichSARS-CoV-2 (COVID-19), RT-PCR/[id number] 13:12:43* Test Item Value Reference Range Interpretation Comments SARS-CoV-2 INTERPRETATION (test code = 45560) NEGATIVE SEE NOTE SARS-CoV-2 R NA NOT [...] prevalence is high. SOURCE (test code = 56102) NASOPHARYNGEAL Note: Methodolog y is Ronit Jagdeep Real-Time RT-PCR. The expected result or reference range is NEGATIVE (Not Detected). For more information regarding COVID-19 testing to include clinicalinformation, methodology detail, intended use, FDA authorization andrecommended fact sheets for patients or healthcare providers, see [employer] Announcement: SARS-CoV-2 (COVID-19) by NAAT at URL below (note,fact sheets are provided by method given in report:[email or web address] Alternatively, see downloadable PDF fact sheet at:[email or web address] UNLESS OTHERWISE INDICATED, ALL TESTING PERFORMED [facility] [address] [place] [address] LEAD IOS DEVELOPER: ELIF MADISON M.D. CLIA NUMBER [id number] [facility] [place]. [id number] SARS-CoV-2 (COVID-19) by RT-PCR (HIGH RISK)2021-09-16 00:00:00* Test Item Value Reference Range Interpretation Comme nts SARS-CoV-2 INTERPRETATION (test code = 99877) NEGATIVE SOURCE (test code = 35821) NASOPHARYNGEAL SARS-CoV-2 (COVID-19) by RT-PCR (HIGH RISK)2021-09-16 00:00:00* Test Item Value Reference Range Interpretation Comme nts SARS-CoV-2 INTERPRETATION (test code = 21744) NEGATIVE SOURCE (test code = 30234) NASOPHARYNGEAL Mariusz DietrichSARS-CoV-2 (COVID-19) by RT-PCR (HIGH RISK)2021-09-16 00:00:00* Test Item Value Reference Range Interpretation Comme nts SARS-CoV-2 INTERPRETATION (test code = 18085) NEGATIVE SOURCE (test code = 32181) NASOPHARYNGEAL Mariusz DietrichSARS-CoV-2 (COVID-19) by RT-PCR (HIGH RISK)2021-09-16 00:00:00* Test Item Value Reference Range Interpretation Comme nts SARS-CoV-2 INTERPRETATION (test code = 51870) NEGATIVE SOURCE (test code = 16906) NASOPHARYNGEAL Mariusz Adams [id number]-8 (COVID-19), RT-PCR/[id number] 13:37:12* Test Item Value Reference Range Interpretation Comments SARS-CoV-2 INTERPRETATION (test code = 64463) PRESUMPTIVE POSITIVE SEE NOTE A NOTE: PRESUMPTIVE POSITIVE RESULTS ARE MOST CONSISTENT WITH LMEX-NPZ-1IMET THE LIMIT OF DETECTION OF THE ASSAY. OTHER UNCOMMON POSSIBLECAUSES ARE A MUTATION IN ONE OF THE TARGET REGIONS, INFECTION WITHANOTHER SARBECOVIRUS OR LABORATORY ISSUES. CORRELATE WITH CLINICALHISTORY AND EPIDEMIOLOGIC FINDINGS. SOURCE (test code = 42543) NASOPHARYNGEAL Note: Methodolog y is Ronit Jagdeep Real-Time RT-PCR. The expected result or reference range is NEGATIVE (Not Detected). For more information regarding COVID-19 testing to include clinicalinformation , methodology detail, intended use, FDA authorization andrecommended fact sheets for patients or healthcare providers, see [employer] Announcement: SARS-CoV-2 (COVID-19) by NAAT at URL below (note,fact sheets are provided by method given in report:[email or web address]. [email or web address]/[email or web address] ans/[email or web address] [email or web address]/ Alternatively, see downloadable PDF fact sheet at:[email or web address] -PCR Note: Methodology is Ronit Jagdeep Real-Time RT-PCR. The expected result or reference range is NEGATIVE (Not Detected). For more information regarding COVID-19 testing to include clinicalinformation , methodology detail, intended use, FDA authorization andrecommended fact sheets for patients or healthcare providers, see [employer] Announcement: SARS-CoV-2 (COVID-19) by NAAT at URL below (note,fact sheets are provided by method given in report:[email or web address] Retail/[email or web address] ans/client-[email or web address] ations/ Alternatively, see downloadable PDF fact sheet at:[email or web address] -PCR UNLESS OTHERWISE INDICATED, ALL TESTING PERFORMED [facility] [address] [place] [id number] LEAD IOS DEVELOPER: ELIF MADISON M.D. CLIA NUMBER [id number] [facility] [place]. [id number] SARS-CoV-2 (COVID-19) by RT-PCR (HIGH RISK)2021-09-09 00:00:00* Test Item Value Reference Range Interpretation Comme nts SARS-CoV-2 INTERPRETATION (test code = 75470) PRESUMPTIVE POSITIVE SOURCE (test code = 18964) NASOPHARYNGEAL Mariusz F [id number]-[id number]-6 (COVID-19) by RT-PCR (HIGH RISK)2021-09-09 00:00:00* Test Item Value Reference Range Interpretation Comme nts SARS-CoV-2 INTERPRETATION (test code = 14572) PRESUMPTIVE POSITIVE SOURCE (test code = 12106) NASOPHARYNGEAL Mariusz F CxmmpcJLVP-VbU-7 (COVID-19) by RT-PCR (HIGH RISK)2021-09-09 00:00:00* Test Item Value Reference Range Interpretation Comme nts SARS-CoV-2 INTERPRETATION (test code = 98406) PRESUMPTIVE POSITIVE SOURCE (test code = 73981) NASOPHARYNGEAL Mariusz F CkddkoLHXP-UkT-5 (COVID-19) by RT-PCR (HIGH RISK)2021-09-09 00:00:00* Test Item Value Reference Range Interpretation Comme nts SARS-CoV-2 INTERPRETATION (test code = 66531) PRESUMPTIVE POSITIVE SOURCE (test code = 73618) NASOPHARYNGEAL BASIC METABOLIC PANEL (NA, K, CL, CO2, GLUCOSE, BUN, CREATININE, CA)2021-08-25 01:45:53* Test Item Value Reference Range Interpretation Comme nts NA (test code = 2805488063) 136 mmol/L 135-145 K (test code = 6027858950) 4.1 mmol/L 3.5-5.0 CL (test code = 7681537217) 102 mmol/L 98-108 CO2 TOTAL (test code = 6224304115) 29 mmol/L 23-31 AGAP (test code = 9081558284) 2-16 BUN (test code = 3580717028) 9 mg/dL 7-23 GLUCOSE (test code = 8234429877) 92 mg/dL 70-110 CREATININE (test code = 0773795741) 0.54 mg/dL 0.50-1.04 CALCIUM (test code = 7911144930) 8.5 mg/dL 8.6-10.6 L eGFR (test code = 3685589651) mL/min/1.73m2 EMERALD (test code = EMERALD) Association [...] imaging tests). Lab Interpretation (test code = 93514-7) Abnormal [facility] WITH [id number] 01:34:37* Test Item Value Reference Range Interpretation Comme nts WBC (test code = 6690-2) See_Comment [[email or web address]] The system which generated this result transmitted reference range: 4.30 - 11.10 10*3/?L. The reference range was not used to interpret this result as normal/abnormal. RBC (test code = 789-8) See_Comment [Automated messa ge] The system which [...] 33.7 g/dL 31.6-35.1 RDW-SD (test code = 00486-9) 41.3 fL 39.0-49.9 RDW-CV (test code = 788-0) 12.7 % 12.0-15.5 PLT (test code = 777-3) See_Comment [Automated OPE [employer] ge] The system which generated this result transmitted reference range: 166 - 358 10*3/?L. The reference range was not used to interpret this result as normal/abnormal. MPV (test code = 34477-5) 9.1 fL 9.5-12.9 L NRBC/100 WBC (test code = 0494943094) See_Comment [Automated [employer] ssage] The system which generated this result transmitted reference range: 0.0 - 10.0 /100 WBCs. The reference range was not used to interpret this result as normal/abnormal. NRBC x10^3 (test code = 2239094415) <0.01 See_Comment [Automated [employer]PE [employer] ge] The system which generated this result transmitted reference range: 10*3/?L. The reference range was not used to interpret this result as normal/abnormal. GRAN MAT (NEUT) % (test code = 770-8) 49.6 % IMM GRAN % (test code = 5021021923) 0.20 % LYMPH % (test code = 736-9) 39.5 % MONO % (test code = 5905-5) 9.0 % EOS % (test code = 713-8) 1.3 % BASO % (test code = 706-2) 0.4 % GRAN MAT x10^3(ANC) (test code = 7536076161) 2.36 10*3/uL 1.88-7.09 IMM GRAN x10^3 (test code = 0356580545) <0.03 0.00-0.06 LYMPH x10^3 (test code = 731-0) 1.88 10*3/uL 1.32-3.29 MONO x10^3 (test code = 742-7) 0.43 10*3/uL 0.33-0.92 EOS x10^3 (test code = 711-2) 0.06 10*3/uL 0.03-0.39 BASO x10^3 (test code = 704-7) <0.03 0.01-0.07 Lab Interpretation (test code = 29489-2) [facility] [id number] 01:28:00* Test Item Value Reference Range Interpretation Comme nts POCT PREG (test code = 1605) negative On board controls acceptable with C Line (test code = 3574) present POCT PREG LOT # (test code = 3575) [id number] POCT PREG TEST DATE ( test code = 3576) 09/28/2022 Lab Interpretation (test cod e = 32913-6) Normal [facility]INE)2020-12-10 05:28:49* Test Item Value Reference Range Interpretation Comme nts AMPHET (test code = 7595782862) Negative Negative Cocaine Metabolite (test code = 1676768561) Negative Negative OPIATES (test code = 4482963512) Presumptive Positive Negative A THC (test code = 2486537310) Negative Negative EMERALD (test code = EMERALD) Urine Drug Cutoff Ranges Amphetamine: ? 1,000 ng/mLCocaine: ? 150 ng/mLOpiates: ? 300 ng/mLCannabinoids: ?50 ng/mL The results are to be used only for medical (i.e., treatment) purposes. Unconfirmed screening results must not be used for non-medical purposes (e.g., employment testing, legal testing). Lab Interpretation (test code = 38203-1) Abnormal [facility] Center[facility] PEL[facility] WO [id number] 04:25:17No acute intra-abdominal or pelvic abnormality. No genitourinary stones. Complex right ovarian cyst, likely hemorrhagic cyst measuring 3.8 cm RL: 6200AF: 93847 Patient name: LORNA HIGHTOWER: 1995 25 years [...] User- 12/09/2020 11:26 PM CDTPatient name: LORNA GUERRAB: 1995 25 years EXAMINATION: [...] hemorrhagic cyst aisha suring 3.8 cmRL: 6200AFC: 28103 [facility] CenterUrinalysis2021-04-14 02:12:28* Test Item Value Reference Range Interpretation Comme nts APPEARANCE (test code = 0696801616) Hazy Clear A COLOR (test code = 1193479230) Yellow Yellow PH (test code = 5228769373) 4.8-8.0 SP GRAVITY (test code = 7070563008) 1.003-1.030 GLU U QUAL (test code = 6103349204) Normal Normal BLOOD (test code = 1072200819) Negative Negative KETONES (test code = 5035921370) Negative Negative PROTEIN (test code = 2887-8) Negative Negative UROBILIN (test code = 5804468701) 4.0 mg/dL Normal A BILIRUBIN (test code = 5433781289) Negative Negative NITRITE (test code = 3975637761) Negative Negative LEUK HOLLEY (test code = 1303650027) Negative Negative RBC/HPF (test code = 0417023603) See_Comment H [Automated OPE [employer]] The system which generated this result transmitted reference range: 0 - 3 HPF. The reference range was not used to interpret this result as normal/abnormal. WBC/HPF (test code = 2877782566) See_Comment [Automated [employer]] The system which generated this result transmitted reference range: 0 - 5 HPF. The reference range was not used to interpret this result as normal/abnormal. BACTERIA (test code = 2731962160) Negative Negative MUCOUS (test code = 8010349619) Slight Negative LPF A SQ EPITH (test code = 4764027873) HPF YEAST BUD (test code = 2148754010) See_Comment H [Automated [employer]PE [employer]] The system which generated this result transmitted reference range: <=1 HPF. The reference range was not used to interpret this result as normal/abnormal. Lab Interpretation (test code = 09528-2) Abnormal [facility] CenterComplete Metabolic [id number] 02:09:13* Test Item Value Reference Range Interpretation Comme nts NA (test code = 3217318876) 137 mmol/L 135-145 K (test code = 5724082731) 3.7 mmol/L 3.5-5.0 CL (test code = 8277469640) 103 mmol/L 98-108 CO2 TOTAL (test code = 6114113162) 26 mmol/L 23-31 AGAP (test code = 3980039377) 2-16 BUN (test code = 6261905298) 12 mg/dL 7-23 GLUCOSE (test code = 5574498020) 92 mg/dL 70-110 CREATININE (test code = 8992223963) 0.62 mg/dL 0.50-1.04 TOTAL BILI (test code = 5080357520) 0.4 mg/dL 0.1-1.1 CALCIUM (test code = 7171584587) 8.9 mg/dL 8.6-10.6 T PROTEIN (test code = 1209354935) 7.1 g/dL 6.3-8.2 ALBUMIN (test code = 8517353041) 4.4 g/dL 3.5-5.0 ALK PHOS (test code = 8877548427) 79 U/L 34-122 ALTv (test code = 1742-6) 16 U/L 5-35 AST(SGOT) (test code = 3872568153) 23 U/L 13-40 eGFR (test code = 5037603112) mL/min/1.73m2 EMERALD (test code = EMERALD) Association [...] or urine or abnormalities in imaging tests). [facility] CenterLipase, [id number] 02:08:38* Test Item Value Reference Range Interpretation Comme nts LIPASE (test code = 3938031012) 53 U/L 0-220 Lab Interpretation (test cod e = 60187-0) Normal [facility] CenterCB with Hkjkurpsundv8757-69-45 02:00:16* Test Item Value Reference Range Interpretation Comme nts WBC (test code = 6690-2) See_Comment [Automated iClinical] The system which generated this result transmitted reference range: 4.30 - 11.10 10*3/?L. The reference range was not used to interpret this result as normal/abnormal. RBC (test code = 789-8) See_Comment [Automated iClinical] The system which generated this result transmitted [...] 33.6 g/dL 31.6-35.1 RDW-SD (test code = 67449-5) 42.6 fL 39.0-49.9 RDW-CV (test code = 788-0) 13.2 % 12.0-15.5 PLT (test code = 777-3) See_Comment [Automated messa ge] The system which generated this result transmitted reference range: 166 - 358 10*3/?L. The reference range was not used to interpret this result as normal/abnormal. MPV (test code = 50617-3) 9.5 fL 9.5-12.9 NRBC/100 WBC (test code = 0330618909) See_Comment [Automated me ssage] The system which generated this result transmitted reference range: 0.0 - 10.0 /100 WBCs. The reference range was not used to interpret this result as normal/abnormal. NRBC x10^3 (test code = 2108904118) <0.01 See_Comment [Automated me ssage] The system which generated this result transmitted reference range: 10*3/?L. The reference range was not used to interpret this result as normal/abnormal. GRAN MAT (NEUT) % (test code = 770-8) 59.6 % IMM GRAN % (test code = 2340858975) 0.30 % LYMPH % (test code = 736-9) 31.8 % MONO % (test code = 5905-5) 6.4 % EOS % (test code = 713-8) 1.4 % BASO % (test code = 706-2) 0.5 % GRAN MAT x10^3(ANC) (test code = [id number]) 5.15 10*3/uL 1.88-7.09 IMM GRAN x10^3 (test code = [id number]) 0.03 10*3/uL 0.00-0.06 LYMPH x10^3 (test code = 731-0) 2.75 10*3/uL 1.32-3.29 MONO x10^3 (test code = 742-7) 0.55 10*3/uL 0.33-0.92 EOS x10^3 (test code = 711-2) 0.12 10*3/uL 0.03-0.39 BASO x10^3 (test code = 704-7) 0.04 10*3/uL 0.01-0.07 [id number]:46:00* Test Item Value Reference Range Interpretation Comme nts POCT PREG (test code = 1605) negative On board controls acceptable with C Line (test code = 3574) present Lab Interpretation (test cod e = 93629-7) [facility]-PCR (HIGH RISK) 2020-12-03 00:00:00* Test Item Value Reference Range Interpretation Comme nts SARS-CoV-2 INTERPRETATION (t est code = 78907) NEGATIVE SOURCE (test code = 55583) NOT SPECIFIED SARS-CoV-2 (COVID-19) by RT-PCR (HIGH RISK)2020-12-03 00:00:00* Test Item Value Reference Range Interpretation Comme nts SARS-CoV-2 INTERPRETATION (t est code = 15591) NEGATIVE SOURCE (test code = 44957) NOT SPECIFIED Mariusz Adams [id number] (COVID-19) by RT-PCR (HIGH RISK)2020-12-03 00:00:00* Test Item Value Reference Range Interpretation Comme nts SARS-CoV-2 INTERPRETATION (t est code = 10382) NEGATIVE SOURCE (test code = 85715) NOT SPECIFIED Mariusz Adams [id number] (COVID-19) by RT-PCR (HIGH RISK)2020-12-03 00:00:00* Test Item Value Reference Range Interpretation Comme nts SARS-CoV-2 INTERPRETATION (t est code = 25737) NEGATIVE SOURCE (test code = 33036) NOT SPECIFIED Mariusz DietrichGC AND CHLAMYDIA AMPLIFIED, [id number] 00:00:00* Test Item Value Reference Range Interpretation Comme nts GONORRHEA, TMA (test code = 83642) NEGATIVE CHLAMYDIA, TMA (test code = 09089) NEGATIVE PAP TEST, THINPREP, [id number] 00:00:00* Test Item Value Reference Range Interpretation Comme nts SOURCE: (test code = 8001) Cervical/Endocervical SLIDES: (test code = 8011) 1 LMP: (test code = 8021) 03/16/17 SPECIMEN ADEQUACY: (test code = 78804) (NOTE) INTERPRETATION: (test code = 00424) NO EPITHELIAL ABNORMALITY SEE BELOW CERTIFIED PROFESSIONAL ERGONOMIST: (test code = 8101) LITO Skaggs(ASCP) QC TECHNOLOGIST: (test code = 8111) LITO Woods(ASCP)IAC LOCATION: (test code = 87283) (NOTE) CPT: (test code = 8140) (NOTE) Mariusz F AustinGC AND CHLAMYDIA AMPLIFIED, [id number] 00:00:00* Test Item Value Reference Range Interpretation Comme nts GONORRHEA, TMA (test code = 90386) NEGATIVE CHLAMYDIA, TMA (test code = 41934) NEGATIVE Mariusz F AustinPAP TEST, THINPREP, [id number] 00:00:00* Test Item Value Reference Range Interpretation Comme nts SOURCE: (test code = 8001) Cervical/Endocervical SLIDES: (test code = 8011) 1 LMP: (test code = 8021) 03/16/17 SPECIMEN ADEQUACY: (test code = 55626) (NOTE) INTERPRETATION: (test code = 79596) NO EPITHELIAL ABNORMALITY SEE BELOW CERTIFIED PROFESSIONAL ERGONOMIST: (test code = 8101) LITO Skaggs(ASCP) QC TECHNOLOGIST: (test code = 8111) LITO Woods(ASCP)IAC LOCATION: (test code = 57643) (NOTE) CPT: (test code = 8140) (NOTE) Mariusz F AustinGC AND CHLAMYDIA AMPLIFIED, [id number] 00:00:00* Test Item Value Reference Range Interpretation Comme nts GONORRHEA, TMA (test code = 85305) NEGATIVE CHLAMYDIA, TMA (test code = 34175) NEGATIVE Mariusz F AustinPAP TEST, THINPREP, [id number] 00:00:00* Test Item Value Reference Range Interpretation Comme nts SOURCE: (test code = 8001) Cervical/Endocervical SLIDES: (test code = 8011) 1 LMP: (test code = 8021) 07/19/17 SPECIMEN ADEQUACY: (test code = 57439) (NOTE) INTERPRETATION: (test code = 27383) NO EPITHELIAL ABNORMALITY SEE BELOW CERTIFIED PROFESSIONAL ERGONOMIST: (test code = 8101) LITO Skaggs(ASCP) QC TECHNOLOGIST: (test code = 8111) LITO oWods(ASCP)IAC LOCATION: (test code = 48299) (NOTE) CPT: (test code = 8140) (NOTE) Mariusz DietrichGC AND CHLAMYDIA AMPLIFIED, [id number] 00:00:00* Test Item Value Reference Range Interpretation Comme nts GONORRHEA, TMA (test code = 26053) NEGATIVE CHLAMYDIA, TMA (test code = 50147) NEGATIVE Mariusz Adams TracyP TEST, THINPREP, [id number] 00:00:00* Test Item Value Reference Range Interpretation Comme nts SOURCE: (test code = 8001) Cervical/Endocervical SLIDES: (test code = 8011) 1 LMP: (test code = 8021) 03/16/17 SPECIMEN ADEQUACY: (test code = 37364) (NOTE) INTERPRETATION: (test code = 35602) NO EPITHELIAL ABNORMALITY SEE BELOW CERTIFIED PROFESSIONAL ERGONOMIST: (test code = 8101) LITO Skaggs(ASCP) QC TECHNOLOGIST: (test code = 8111) LITO Woods(ASCP)[facility] LOCATION: (test code = 44142) (NOTE) CPT: (test code = 8140) (NOTE) ACUTE HEPATITIS [id number] 00:00:00* Test Item Value Reference Range Interpretation Comme nts HEPATITIS A IgM (test code = 97873) NON-REACTIVE HEPATITIS B CORE IgM (test c ode = 4644) NON-REACTIVE HEPATITIS B SURF AG (test co de = 2739) NON-REACTIVE HEPATITIS C ANTIBODY (test c ode = 4675) NON-REACTIVE INTERPRETATION HEPATITIS A: (test code = 2552) (NOTE) INTERPRETATION HEPATITIS B: (test code = 75685) (NOTE) INTERPRETATION HEPATITIS C: (test code = 41829) (NOTE) Mariusz Angie KarloHIV AB/AG COMBO RFLX [id number] 00:00:00* Test Item Value Reference Range Interpretation Comme nts HIV 1/2 4TH GEN, RFLX CONF ( test code = 3514) NON-REACTIVE HIV AB/AG COMBO RFLX [id number] 00:00:00* Test Item Value Reference Range Interpretation Comme nts HIV 1/2 4TH GEN, RFLX CONF ( test code = 3514) NON-REACTIVE Mariusz Adams [id number] 00:00:00* Test Item Value Reference Range Interpretation Comme nts RPR RESULT (test code = 3501) NON-REACTIVE RPR TITER (test code = 3500) NOT INDIC. TITER [id number] 00:00:00* Test Item Value Reference Range Interpretation Comme nts RPR RESULT (test code = 3501) NON-REACTIVE RPR TITER (test code = 3500) NOT INDIC. TITER Mariusz DietrichACUTE HEPATITIS [id number] 00:00:00* Test Item Value Reference Range Interpretation Comme nts HEPATITIS A IgM (test code = 69590) NON-REACTIVE HEPATITIS B CORE IgM (test c ode = 4644) NON-REACTIVE HEPATITIS B SURF AG (test co de = 2739) NON-REACTIVE HEPATITIS C ANTIBODY (test c ode = 4675) NON-REACTIVE INTERPRETATION HEPATITIS A: (test code = 2552) (NOTE) INTERPRETATION HEPATITIS B: (test code = 52895) (NOTE) INTERPRETATION HEPATITIS C: (test code = 75266) (NOTE) ACUTE HEPATITIS [id number] 00:00:00* Test Item Value Reference Range Interpretation Comme nts HEPATITIS A IgM (test code = 37959) NON-REACTIVE HEPATITIS B CORE IgM (test c ode = 4644) NON-REACTIVE HEPATITIS B SURF AG (test co de = 2739) NON-REACTIVE HEPATITIS C ANTIBODY (test c ode = 4675) NON-REACTIVE INTERPRETATION HEPATITIS A: (test code = 2552) (NOTE) INTERPRETATION HEPATITIS B: (test code = 90050) (NOTE) INTERPRETATION HEPATITIS C: (test code = 20830) (NOTE) Mariusz DietrichHIV AB/AG COMBO RFLX [id number] 00:00:00* Test Item Value Reference Range Interpretation Comme nts HIV 1/2 4TH GEN, RFLX CONF ( test code = 3514) NON-REACTIVE Mariusz Adams [id number] 00:00:00* Test Item Value Reference Range Interpretation Comme nts RPR RESULT (test code = 3501) NON-REACTIVE RPR TITER (test code = 3500) NOT INDIC. TITER Mariusz DietrichACUTE HEPATITIS [id number] 00:00:00* Test Item Value Reference Range Interpretation Comme nts HEPATITIS A IgM (test code = 89198) NON-REACTIVE HEPATITIS B CORE IgM (test c ode = 4644) NON-REACTIVE HEPATITIS B SURF AG (test co de = 2739) NON-REACTIVE HEPATITIS C ANTIBODY (test c ode = 4675) NON-REACTIVE INTERPRETATION HEPATITIS A: (test code = 2552) (NOTE) INTERPRETATION HEPATITIS B: (test code = 90734) (NOTE) INTERPRETATION HEPATITIS C: (test code = 93918) (NOTE) Mariusz DietrichHIV AB/AG COMBO RFLX [id number] 00:00:00* Test Item Value Reference Range Interpretation Comme nts HIV 1/2 4TH GEN, RFLX CONF ( test code = 3514) NON-REACTIVE Mariusz [id number] 00:00:00* Test Item Value Reference Range Interpretation Comme nts RPR RESULT (test code = 3501) NON-REACTIVE RPR TITER (test code = 3500) NOT INDIC. TITER Mariusz Dietrich Notes | Date/Time Note Provider Source Mariusz Hinds [facility]2024-09-09 00:00:00| Mariusz Hinds [facility]2024-09-03 00:00:00| Mariusz F. [facility]"
--- NOTE | 2024-07-30 17:39 | RAD REPORT ---
EXAMINATION: TWO VIEW CHEST XR CLINICAL INDICATION: Female, [address] [facility] COU[facility] Bed Name: [facility] TECHNIQUE: 2 view radiographs of the chest were performed. COMPARISON: 01/09/2021 FINDINGS: The lungs are well inflated and clear. Elevation of the left hemidiaphragm again seen. No pneumothora x or sizable effusion. The heart is normal in size. Mediastinal contours are unremarkable. IMPRESSION: No acute or significant abnormalities.
[2024-07-30 18:54] LABS: Specific Gravity > 1.030 (1.005-1.030)
[2024-07-30 19:16] LABS: SARS-CoV-2 Antigen CONTROL BLUE LINE VIS/BG OK; SARS-CoV-2 Antigen Rapid Res Negative (Negative)
--- NOTE | 2024-07-30 19:42 | EDPHYS ---
Physician Documentation [facility] Name: Lilia Nunez Age: 29 yrs Sex: Female : 1995 Arrival Date: 07/30/2024 Time: 15:11 Bed 11 Private MD: ED Physician Aly Zarate HPI: 07/30 18:21 This 29 yrs old Female presents to ER via Ambulatory with complaints of ms3 Shortness Of Breath, Sore Throat. 18:21 The patient is a 29-year-old female who presents to the Emergency Department for ms3 chills, fever, cough, decreased appetite that began on Thanksgiving. Patient states she was diagnosed with the flu 2 weeks ago and feels her symptoms have returned and are worse. She denies any alleviating or inciting factors.. 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 - Infectious Disease History:: Denies. - Social history:: Smoking status: Reported history of juuling and/or vaping. ROS: 18:21 MS/Extremity: Negative for injury and deformity, Skin: Negative for injury, rash, and ms3 discoloration, 18:21 Cardiovascular: Negative for chest pain, and palpitations. 18:21 Constitutional: Positive for body aches, chills, fever, 18:21 Respiratory: Positive for cough, 18:23 Abdomen/GI: Positive for nausea, ms3 Exam: 18:23 Constitutional: This is a well developed, well nourished patient who is awake, alert, ms3 and in no acute distress. Chest/axilla: Normal chest wall appearance and motion. Nontender with no deformity. Cardiovascular: Regular rate and rhythm with a normal S1 and S2. No gallops, murmurs, or rubs. Normal PMI, no JVD. No pulse deficits. Respiratory: Lungs have equal breath sounds bilaterally, clear to auscultation and percussion. No rales, rhonchi or wheezes noted. No increased work of breathing, no retractions or nasal flaring. Abdomen/GI: Soft, non-tender, with normal bowel sounds. No distension or tympany. No guarding or rebound. No evidence of tenderness throughout. Skin: Warm, dry with normal turgor. Normal color with no rashes, no lesions, and no evidence of cellulitis. MS/ Extremity: Pulses equal, no cyanosis. Neurovascular intact. Full, normal range of motion. Vital Signs: 16:09 BP 116 / 77; Pulse 88; Resp 19 S; Temp 98.6(O); Pulse Ox 97% on R/A; Weight 73.48 kg aa5 (R); Height 5 ft. 2 in. (R); 20:54 BP 112 / 68; Pulse 86; Resp 18; Pulse Ox 98% ; vc1 16:09 Body Mass Index 29.63 (73.48 kg, 157.48 cm) aa5 MDM: 16:05 Medical Screening Exam initiated ms3 18:23 Differential diagnosis: pneumonia, Flu vs COVID vs . ms3 22:06 Data reviewed: vital signs, nurses notes, lab test result(s), radiologic studies, and ms3 as a result, I will discharge patient. Counseling: I had a detailed discussion with the patient and/or guardian regarding the historical points, exam findings, and any diagnostic results supporting the discharge/admit diagnosis, lab results, the need for outpatient follow up, to return to the emergency department if symptoms worsen or persist or if there are any questions or concerns that arise at home. Special discussion: I discussed with the patient/guardian in detail that at this point there is no indication for admission to the hospital. It is understood, however, that if the symptoms persist or worsen the patient needs to return immediately for re-evaluation. ED course: On re-evaluation patient is a/o x4, in nad, non-toxic appearing, speaking full sentences, Patient to follow up with pmd in 2-3 days. All questions answered. Return precautions given to include worsening symptoms, or any other concerns. . 12 16:37 Order name: Flu; Complete Time: 19:30 ms3 07/30 16:37 Order name: SARS RAPID; Complete Time: 19:30 ms3 07/30 18:23 Order name: Test, Urine; Complete Time: 19:01 ms3 07/30 16:37 Order name: Chest Pa And Lat (2 Views) XRAY; Complete Time: 17:48 ms3 Administered Medications: No medications were administered Disposition Summary: 07/30/24 19:42 Discharge Ordered Notes: Location: Home ms3 Condition: Stable ms3 Diagnosis - Cough ms3 - Myalgia ms3 Followup: ms3 - With: Louis North DO - When: 2 - 3 days - Reason: Recheck today's complaints Discharge Instructions: - Discharge Summary Sheet ms3 - Cough, Adult ms3 Forms: - Medication Reconciliation Form ms3 - Antibiotic Education ms3 - Prescription Opioid Use ms3 - Patient Portal Instructions ms3 - Leadership Thank You Letter ms3 Prescriptions: - benzonatate 200 mg Oral capsule - take 1 capsule ORAL route 3 times per day as needed; 20 capsule; Refills: 0, ms3 Product Selection Permitted Signatures: Dispatcher [employer] Kellie Patrick RN RN aa5 Aly Zarate DO DO ms3 Corrections: (The following items were deleted from the chart) 16:10 16:10 PMHx: Anxiety; aa5 aa5 16:10 16:10 PMHx: Asthma; aa5 aa5 18:23 18:21 Constitutional: Positive for body aches, chills, fever, ms3 ms3 18:23 18:21 Cardiovascular: Negative for chest pain, and palpitations. ms3 ms3
--- NOTE | 2024-07-30 19:42 | ER ---
Nurse's Notes [facility] Name: Lilia Nunez Age: 29 yrs Sex: Female : 1995 Arrival Date: 07/30/2024 Time: 15:11 Bed 11 Private MD: Diagnosis: Cough;Myalgia Presentation: 07/30 16:09 Chief complaint: Patient states: diagnosed with Flu A approximately 1-2 weeks ago, aa5 reports generalized weakness, dizziness, lower abd pain, congestion, runny nose, and cough. Coronavirus screen: congestion, cough unrelated to allergies. Ebola Screen: Patient denies travel to an Ebola-affected area in the 21 days before illness onset. Initial Sepsis Screen: Does the patient meet any 2 criteria? No. Patient's initial sepsis screen is negative. Does the patient have a suspected source of infection? No. Patient's initial sepsis screen is negative. Risk Assessment: Do you want to hurt yourself or someone else? Patient reports no desire to harm self or others. Onset of symptoms was June 2024. 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 - Infectious Disease History:: Denies. - Social history:: Smoking status: Reported history of juuling and/or vaping. Screenin:53 [facility] ED Fall Risk Assessment (Adult) History of falling in the last 3 months, vc1 including since admission No falls in past 3 months (0 pts) Confusion or Disorientation No (0 pts) Intoxicated or Sedated No (0 pts) Impaired Gait No (0 pts) Mobility Assist Device Used No (0 pt) Altered Elimination No (0 pt) Score/Fall Risk Level 0 - 2 = Low Risk Oriented to surroundings, Maintained a safe environment, Educated pt \T\ family on fall prevention, incl call for assistance when getting out of bed. Abuse screen: Denies threats or abuse. Nutritional screening: No deficits noted. Tuberculosis screening: No symptoms or risk factors identified. Vital Signs: 16:09 BP 116 / 77; Pulse 88; Resp 19 S; Temp 98.6(O); Pulse Ox 97% on R/A; Weight 73.48 kg aa5 (R); Height 5 ft. 2 in. (R); 20:54 BP 112 / 68; Pulse 86; Resp 18; Pulse Ox 98% ; vc1 16:09 Body Mass Index 29.63 (73.48 kg, 157.48 cm) aa5 ED Course: 15:16 Patient arrived in ED. mg5 15:18 Aly Zarate DO is Attending Physician. ms3 15:56 Patient's name was called from ER lobby. No response. aa5 16:10 Triage completed. aa5 17:33 Chest Pa And Lat (2 Views) XRAY In Process Unspecified. EDMS 18:39 SARS RAPID Sent. kb3 18:39 Flu Sent. kb3 18:47 Test, Urine Sent. kb3 19:41 Louis North DO is Referral Physician. ms3 20:53 Arm band placed on right wrist. vc1 20:54 No provider procedures requiring assistance completed. Patient did not have IV access vc1 during this emergency room visit. Administered Medications: No medications were administered Medication: 20:54 VIS not applicable for this client. vc1 Outcome: 19:42 Discharge ordered by MD. ms3 20:54 Discharged to home ambulatory, vc1 20:54 Condition: good 20:54 Discharge instructions given to patient, Instructed on discharge instructions, follow up and referral plans. medication usage, Demonstrated understanding of instructions, follow-up care, medications, Prescriptions given X 1, 20:55 Patient left the ED. vc1 Signatures: Dispatcher [employer] EDHI Kellie Lopez RN RN aa5 Aly Zarate DO DO ms3 Ruba Mills RN RN vc1 Beatriz Alicea RN RN kb3 Irene Morfin mg5 Corrections: (The following items were deleted from the chart) 16:10 16:10 PMHx: Anxiety; aa5 aa5 16:10 16:10 PMHx: Asthma; aa5 aa5
[2024-07-30 23:24] VITALS: TEMP 98.6
[2024-07-30 23:25] VITALS: BP 112/68; O2SAT 98
== END 2024-07-30 20:55 | disposition home or self-care (01) ==
LOC: ER 15:11
DX: R05.9 Cough, unspecified (principal); M79.10 Myalgia, unspecified site; Z11.52 Encounter for screening for COVID-19
CPT/HCPCS: 36415; 71046; 81025; 87804; 87811; 99283

== ENCOUNTER 2024-08-07 15:21 | Emergency (ER) | payer SELFPAY ==
--- OUTSIDE RECORDS SUMMARY | 2024-08-07 15:26 | XMS REPORT | Continuity of Care Document ---
Author Name Unknown Address [address] [facility] [address] [place] [address] [facility] thconnect Address [address] [facility] [place] [address] Care Team Providers Care Parking Enforcement Specialist Name Role Phone Kareem Ireland M.D.mberly Primary Care Physician SREE LOPEZ Attending Clinician Unavailable Sree Lopez MD Attending Clinician [phone] QIANA VALDEZ Attending Clinician Unavailable Qiana Kinney Attending Clinician [phone] Elliot Fletcher Attending Clinician [phone] ELLIOT FRASER Attending Clinician Unavailable Amber Cardozo NP Attending Clinician [phone] Payers Payer Name Policy Type Policy Number Effective Date Expirati on Date Source MEDICAID PENDING PENDING 2021 00:00:00 Problems Condition Name Condition Details Condition Category Status Onset Date Resolution Date Last Treatment Date Treating Clinician Comments Source No known active problems No known active problems Disease Univers [facility] Allergies, Adverse Reactions, Alerts Allergy Name Allergy Type Status Severity Reaction(s) Onset Date Inactive Date Treating Clinician Comments Source NO KNOWN ALLERGIE S Drug Class Active Univers [facility] Social History Social Habit Start Date Stop Date Quantity Comments Source History of tobacco use Cigarette Smoker [facility] [place] [place] Exposure to SARS-CoV-2 (event) 2022-08-31 00:00:00 2022-09-10 12:55:[address] [facility] [place] [place] Cigarettes smoked current (pack per day) - Reported 2017-07-12 00:00:00 2017-07-12 00:00:[address] [facility] [place] [place] Tobacco use and exposure 2017-07-12 00:00:00 2017-07-12 00:00:00 Smokeless tobacco non-user [facility] [place] [place] Sex Assigned At 1995 00:00:00 1995 00:00:[address] [facility] [place] [place] Smoking Status Start Date Stop Date Source Smokes tobacco daily 2017-07-12 00:00:[address] [facility] [place] [place] Medications Ordered Medication Name Filled Medication Name [...] On Tue09/10/22 at 1330, VIVIEN [facility] hydrOXYzine (VISTARIL) 25 mg capsule 09-10 00:00: 00 Yes [id number] 25mg Take 1 capsule by mouth 2 (two) times daily as needed for Anxiety. [facility] TAKE 1 TABLET BY MOUTH TWICE DAILY NEEDED 2023-0 1-06 00:00: 00 Yes Mariusz Adams Karlo Dose Unknown 2022-0 6-02 00:00: 00 No Dose Unknown 2022-0 6-02 00:00: 00 No Dose Unknown 2022-0 6-02 00:00: 00 Yes Mariusz Adams Karlo Dose Unknown 2022-0 6-02 00:00: 00 Yes Mariusz Adams Karlo Dose Unknown 2022-0 4-17 00:00: 00 Yes Mariusz Angie Karlo Dose Unknown 2022-0 4-17 00:00: 00 [...] Site: Pelvic
Duration of Therapy: 7 days [facility] NaCl 0.9% (NS) bolus infusion 1,000 mL 2020-08 02:00: 00 08-25 02:45 :00 No 1000mL at 999 mL/hr, 1,000 mL, IV Infusion, ONCE, 1 dose, On Tue08/24/21 at 2000, VIVIEN [facility] doxycycline hyclate 100 mg capsule 2020-08 00:00: 00 09-01 05:59 :00 No [id number] 100mg Take 1 capsule by mouth 2 (two) times daily for 7 days. [facility] traMADoL (ULTRAM) tablet 50 mg 03-26 22:15: 00 03-26 21:15 :00 No 50mg 50 mg, Oral, ONCE, 1 dose, Nadia 03/26/21 at 1715, Routine [facility] traMADoL 50 mg tablet 03-26 00:00: 00 Yes [id number] 50mg Take 1 tablet by mouth every 6 (six) hours as needed for Pain (scale 7-10). Indication s: acute pain [facility] clindamycin 150 mg capsule 03-26 00:00: 00 04-06 04:59 :00 No [id number] 450mg Take 3 capsules by mouth 3 (three) times daily for 10 days. [facility] dicyclomine (BENTYL) injection 20 mg 12-10 13:00: 00 Yes 20mg 20 mg, Intramuscu lar, QID, First dose on Tue12/10/20 at 0800, Until Discontinu ed, Routine [facility] ketorolac (TORADOL) injection 30 mg 12-10 04:45: 00 12-10 03:51 :00 No 30mg 30 mg, Slow IV Push, ONCE, 1 dose, 12/09/20 at 2345, Routine
prepared foods production team member approving Restricted medication : AMBER CARDOZO [facility] dicyclomine 20 mg tablet 12-10 00:00: 00 Yes [id number] 20mg Take 1 tablet by mouth 4 (four) times daily as needed for Abdominal pain. [facility] indomethaci n 50 mg capsule 14 00:00: 00 12-18 04:59 :00 No [id number] 50mg Take 1 capsule by mouth 2 (two) times daily with meals for 7 days. [facility] Flonase Allergy Relief 50 mcg/actuati on nasal spray,suspe nsion 10-31 00:00: 00 Yes 12mcg/a ctuatio carlo Mariusz Dietrich Bromfed DM 2 mg-30 mg-10 mg/5 mL oral syrup 10-31 00:00: 00 Yes 75mg/5 mL Mariusz Dietrich Flonase Allergy Relief 50 mcg/actuati on nasal spray,suspe nsion 10-31 00:00: 00 No 12mcg/a ctuatio carlo Bromfed DM 2 mg-30 mg-10 mg/5 mL oral syrup 10-31 00:00: 00 No 75mg/5 mL HYDROcodone -acetaminop hen (NORCO 5) 5-325 mg tablet 1 tablet 2019-08 22:00: 00 06-16 21:06 :00 No 1{tbl} 1 tablet, Oral, ONCE, 1 dose, Tue06/16/20 at 1700, VIVIEN [facility] ketorolac (TORADOL) injection 60 mg 2019-08 22:00: 00 06-16 21:07 :00 No 60mg 60 mg, Intramuscu lar, ONCE, 1 dose, Tue06/16/20 at 1700, VIVIEN
Fa culty member approving Restricted medication : EMERGENCY ROOM, [facility] penicillin v potassium 500 mg tablet 2019-08 00:00: 00 06-24 04:59 :00 No [id number] 500mg Take 1 tablet by mouth 4 (four) times daily for 7 days. [facility] acetaminoph en-codeine 300-30 mg tablet 2019-08 00:00: 00 06-24 04:59 :00 No [id number] 1{tbl} Take 1 tablet by mouth every 6 (six) hours as needed for Pain (scale 7-10) for up to 7 days. Indication s: acute pain [facility] codeine-gua ifenesin 10-100 mg/5 mL solution 2016-08 00:00: 00 03-26 00:00 :00 No 5mL Take 5 mL by mouth every 6 (six) hours as needed for Cough. [facility] ondansetron 4 mg disintegrat ing tablet 2016-08 00:00: 00 03-26 00:00 :00 No 4mg Take 1 tablet by mouth every 8 (eight) hours as needed for Nausea and Vomiting (N/V). [facility] ibuprofen 800 mg tablet 12-29 00:00: 00 Yes 1mg Mariusz Dietrich ibuprofen 800 mg tablet 12-29 00:00: 00 No 1mg Immunizations Ordered Immunization Name Filled Immunization Name Date Status Comments Source SARS-COV-2 COVID-19 PFIZER VACCINE 2021-01-17 00:00:[address] [facility] [place] SARS-COV-2 COVID-19 PFIZER VACCINE 2021-01-17 00:00:[address] [facility] [place] [place] SARS-COV-2 COVID-19 PFIZER VACCINE 2021-01-17 00:00:[address] [facility] [place] [place] SARS-COV-2 COVID-19 PFIZER VACCINE 2020-12-20 00:00:[address] [facility] [place] [place] SARS-COV-2 COVID-19 PFIZER VACCINE 2020-12-20 00:00:[address] [facility] [place] [place] SARS-COV-2 COVID-19 PFIZER VACCINE 2020-12-20 00:00:[address] [facility] [place] Influenza, seasonal, inj Influenza, seasonal, inj 2017-08-24 00:00:00 Gonsalo Dietrich Influenza, seasonal, inj 2017-08-24 00:00:00 Completed Hep A-Hep B Hep A-Hep B 2017-04-06 00:00:00 Completed Mariusz Dietrich Hep A-Hep B 2017-04-06 00:00:00 Completed Vital Signs Vital Name Observation Time Observation Value Comments S celio Systolic blood pressure 2022-09-10 18:57:00 180 mm[Hg] [facility] Diastolic blood pressure 2022-09-10 18:57:00 115 mm[Hg] [facility] Heart rate 2022-09-10 18:57:00 90 /min [facility] Body temperature 2022-09-10 18:57:[address] [facility] [place] [place] Respiratory rate 2022-09-10 18:57:00 20 /min [facility] [place] [place] Body height 2022-09-10 18:57:00 157.5 cm [facility] Body weight 2022-09-10 18:57:00 79.379 kg [facility] BMI 2022-09-10 18:57:00 32.01 kg/m2 [facility] Oxygen saturation in Arterial blood by Pulse oximetry 2022-09-10 18:57:00 99 /min [facility] Systolic blood pressure 2021-08-25 02:00:00 120 mm[Hg] [facility] Diastolic blood pressure 2021-08-25 02:00:00 82 mm[Hg] [facility] Heart rate 2021-08-25 02:00:00 82 /min [facility] Respiratory rate 2021-08-25 02:00:00 15 /min [facility] [place] [place] Oxygen saturation in Arterial blood by Pulse oximetry 2021-08-25 02:00:00 100 /min [facility] Body temperature 2021-08-25 00:45:[address] [facility] [place] [place] Body weight 2021-08-25 00:45:00 86.183 kg [facility] BMI 2021-08-25 00:45:00 34.75 kg/m2 [facility] Systolic blood pressure 2021 20:13:00 108 mm[Hg] [facility] Diastolic blood pressure 2021 20:13:00 86 mm[Hg] [facility] Heart rate 2021 20:13:00 90 /min [facility] Body temperature 2021 20:13:[address] [facility] [place] [place] Respiratory rate 2021 20:13:00 18 /min [facility] [place] [place] Body height 2021 20:13:00 157.5 cm [facility] Body weight 2021 20:13:00 88.905 kg [facility] BMI 2021 20:13:00 35.85 kg/m2 [facility] Oxygen saturation in Arterial blood by Pulse oximetry 2021 20:13:00 100 /min [facility] Systolic blood pressure 2020-12-10 00:00:00 120 mm[Hg] [facility] Diastolic blood pressure 2020-12-10 00:00:00 74 mm[Hg] [facility] Heart rate 2020-12-10 00:00:00 71 /min [facility] Body temperature 2020-12-10 00:00:[address] [facility] [place] [place] Respiratory rate 2020-12-10 00:00:00 18 /min [facility] [place] [place] Body weight 2020-12-10 00:00:00 86.183 kg [facility] BMI 2020-12-10 00:00:00 34.75 kg/m2 [facility] Oxygen saturation in Arterial blood by Pulse oximetry 2020-12-10 00:00:00 97 /min [facility] Systolic blood pressure 2020-12-10 00:00:00 120 mm[Hg] [facility] Diastolic blood pressure 2020-12-10 00:00:00 74 mm[Hg] [facility] Heart rate 2020-12-10 00:00:00 71 /min [facility] Body temperature 2020-12-10 00:00:[address] [facility] [place] [place] Respiratory rate 2020-12-10 00:00:00 18 /min [facility] [place] [place] Body weight 2020-12-10 00:00:00 86.183 kg [facility] BMI 2020-12-10 00:00:00 34.75 kg/m2 [facility] Oxygen saturation in Arterial blood by Pulse oximetry 2020-12-10 00:00:00 97 /min [facility] Systolic blood pressure 2020-06-16 20:21:00 132 mm[Hg] [facility] Diastolic blood pressure 2020-06-16 20:21:00 74 mm[Hg] [facility] Heart rate 2020-06-16 20:21:00 82 /min [facility] Body temperature 2020-06-16 20:21:[address] [facility] [place] [place] Respiratory rate 2020-06-16 20:21:00 20 /min [facility] [place] [place] Body height 2020-06-16 20:21:00 157.5 cm [facility] Body weight 2020-06-16 20:21:00 86.183 kg [facility] BMI 2020-06-16 20:21:00 34.75 kg/m2 [facility] Oxygen saturation in Arterial blood by Pulse oximetry 2020-06-16 20:21:00 100 /min [facility] Systolic blood pressure 2020-06-16 20:21:00 132 mm[Hg] [facility] Diastolic blood pressure 2020-06-16 20:21:00 74 mm[Hg] [facility] Heart rate 2020-06-16 20:21:00 82 /min [facility] Body temperature 2020-06-16 20:21:[address] [facility] [place] [place] Respiratory rate 2020-06-16 20:21:00 20 /min [facility] [place] [place] Body height 2020-06-16 20:21:00 157.5 cm [facility] Body weight 2020-06-16 20:21:00 86.183 kg [facility] BMI 2020-06-16 20:21:00 34.75 kg/m2 [facility] Oxygen saturation in Arterial blood by Pulse oximetry 2020-06-16 20:21:00 100 /min [facility] BP Systolic 2024-05-25 11:34:00 135 mm[Hg] [facility] BP Diastolic 2024-05-25 11:34:00 110 mm[Hg] [place] [...] Temperature 2018-08-15 11:28:00 98.60 degrees Mariusz F Kalro Heart Rate 2018-08-15 11:28:00 84.00 /min Emeli [...] Weight Measured 2016-01-02 11:57:00 178.00 pounds Mariusz Dietrich Height Measured 2016-01-02 11:57:00 62.50 inches Mariusz F Karlo Body Temperature 2016-01-02 11:57:00 98.10 degrees Mariusz Angie Dietrich Heart Rate 2016-01-02 11:57:00 69.00 /min Emeli en F Karlo Respiratory Rate 2016-01-02 11:57:00 16.00 /min Mariusz F Karlo BP Systolic 2016-01-02 11:50:00 111 mm[Hg] Step hen F Karlo BP Diastolic 2016-01-02 11:50:00 71 mm[Hg] Clay phen Angie Dietrich Weight Measured 2016-01-02 11:50:00 178.00 pounds Mariusz Dietrich Height Measured 2016-01-02 11:50:00 62.50 inches Mariusz Dietrich Body Temperature 2016-01-02 11:50:00 98.10 degrees Mariusz Dietrich Heart Rate 2016-01-02 11:50:00 69.00 /min Emeli en F Karlo Respiratory Rate 2016-01-02 11:50:00 16.00 /min Mariusz Dietrich BP Systolic 2015-12-30 15:40:00 112 mm[Hg] BP Diastolic 2015-12-30 15:40:00 74 mm[Hg] Weight Measured 2015-12-30 15:40:00 176.60 pounds Height Measured 2015-12-30 15:40:00 62.50 inches Body Temperature 2015-12-30 15:40:00 98.30 degrees Heart Rate 2015-12-30 15:40:00 84.00 /min Respiratory Rate 2015-12-30 15:40:00 16.00 /min Procedures Procedure Date / Time Performed Performing Clinician Source POCT TEST 2022-09-10 19:42:[address] [facility] [place] [place] URINE DRUG (IMMUNOASSAY) - COMPREHENSIVE DRUG SCREEN 2022-09-10 19:41:[address] [facility] [place] [place] URINALYSIS 2022-09-10 19:41:00 Sree Lopez [facility] CONSENT/REFUSAL FOR DIAGNOSIS AND TREATMENT 2022-09-10 18:46:57 Doctor Unassigned, Bono [facility] [place] [place] POCT TEST 2021-08-25 01:28:[address] [facility] [place] [place] BASIC METABOLIC PANEL (NA, K, CL, CO2, GLUCOSE, BUN, CREATININE, CA) 2021-08-25 01:26:[address] [facility] [place] [place] CBC WITH DIFF 2021-08-25 01:26:00 Qiana Valdez [facility] URINALYSIS 2021-08-25 01:26:00 Qiana Valdez [facility] CONSENT/REFUSAL FOR DIAGNOSIS AND TREATMENT 2021-08-25 00:39:27 Doctor Unassigned, Bono [facility] [place] [place] CONSENT/REFUSAL FOR DIAGNOSIS AND TREATMENT 2021 20:08:24 Doctor Unassigned, Bono [facility] [place] [place] CT ABDOMEN PELVIS WO CONTRAST 2020-12-10 04:09:[address] [facility] [place] URINE DRUG (IMMUNOASSAY) - 4 ER PANEL 2020-12-10 03:57:[address] [facility] [place] [place] POCT TEST 2020-12-10 01:46:[address] [facility] [place] [place] LIPASE 2020-12-10 01:44:00 Johnnie Olivarez [facility] COMP. METABOLIC PANEL (00230) 2020-12-10 01:44:[address] [facility] [place] [place] CBC WITH DIFF 2020-12-10 01:44:00 Johnnie Olivarez [facility] URINALYSIS 2020-12-10 01:44:00 Johnnie Olivarez [facility] NOTICE OF PRIVACY PRACTICES 2020-12-09 23:56:35 Doctor Unassigned, Bono [facility] [place] [place] CONSENT/REFUSAL FOR DIAGNOSIS AND TREATMENT 2020-12-09 23:55:46 Doctor Unassigned, Bono [facility] [place] [place] CONSENT/REFUSAL FOR DIAGNOSIS AND TREATMENT 2020-06-16 20:19:26 Doctor Unassigned, Bono [facility] [place] [place] Plan of Care Planned Activity Planned Date Details Comments Source Goal Plan of Care Note [code = 52297-4] Goal Plan of Care Note [code = 70691-2] Goal Plan of Care Note [code = 95254-0] Goal Plan of Care Note [code = 89600-8] Goal Plan of Care Note [code = 70848-4] Goal Plan of Care Note [code = 01172-7] Goal Plan of Care Note [code = 28630-6] Goal Plan of Care Note [code = 82782-9] Goal Plan of Care Note [code = 97612-5] Goal Plan of Care Note [code = 20554-3] Goal Plan of Care Note [code = 77954-1] Goal Plan of Care Note [code = 37931-2] Goal Plan of Care Note [code = 67711-0] Goal Plan of Care Note [code = 18975-4] Goal Plan of Care Note [code = 26357-4] Goal Plan of Care Note [code = 02178-8] Goal Plan of Care Note [code = 06711-4] Goal Plan of Care Note [code = 87622-4] Goal Plan of Care Note [code = 11380-4] Goal Plan of Care Note [code = 73708-4] Goal Plan of Care Note [code = 01664-3] Goal Plan of Care Note [code = 23541-7] Goal Plan of Care Note [code = 21054-6] Goal Plan of Care Note [code = 99018-4] Goal Plan of Care Note [code = 35606-7] Goal Plan of Care Note [code = 04919-3] Encounters Start Date/Time End Date/Time Encounter Type Admission Type Attending [facility] Care Facility Care Department Encounter ID Source 2022-09-11 22:37:13 Outpatient [facility] [id number] [facility] 2024-08-02 09:47:29 2024-08-02 09:47:29 Outpatient [facility]FA [facility] [id number] Mariusz Angie Karlo 2024-07-28 09:12:19 2024-07-28 09:12:19 Outpatient SFA [facility] [id number] Mariusz Dietrich 2024-07-27 16:34:15 2024-07-27 16:34:15 Outpatient SFA [facility] [id number] Mariusz Dietrich 2024-05-25 11:29:14 2024-05-25 11:29:14 Outpatient SFA [facility] [id number] Mariusz Dietrich 2024-05-25 00:00:00 2024-05-25 00:00:00 Outpatient Visit SFA [id number] Mariusz Dietrich 2024-05-07 16:45:19 2024-05-07 16:45:[address] [facility] [id number] Mariusz Dietrich 2024-05-07 00:00:00 2024-05-07 00:00:[address] [facility] [id number] Mariusz Dietrich 2024-05-01 09:03:27 2024-05-01 09:03:[address] [facility] [id number] Mariusz Dietrich 2024-05-01 00:00:00 2024-05-01 00:00:[address] [facility] [id number] Mariusz Dietrich 2024-04-30 13:03:22 2024-04-30 13:03:[address] [facility] [id number] Mariusz Adams Karlo 2023-03-15 08:16:23 2023-03-15 08:16:[address] [facility] [id number] Mariusz Adams Karlo 2022-09-10 12:58:00 2022-09-10 16:23:00 Emergency [facility] [id number] [facility] 2022-09-10 12:58:00 2022-09-10 16:23:00 Emergency Sree Lopez [facility] [id number] [facility] 2022-04-02 00:00:00 2022-04-02 00:00:00 Outpatient Visit [id number] 2021-08-24 18:46:00 2021-08-24 21:11:00 Emergency X QIANA VALDEZ [facility] [id number] [facility] 2021-08-24 18:46:00 2021-08-24 21:11:00 Emergency Qiana Valdez [facility] [id number] [facility] 2021 15:14:00 2021 16:17:00 Emergency Elliot Fraser [facility] [id number] [facility] 2021 15:08:00 2021 15:08:00 Emergency X ELLIOT FRASER [facility] [id number] [facility] 2020-12-09 19:02:00 2020-12-10 01:46:00 Emergency Amber Cardozo [facility] [id number] [id number] [id number] 2020-12-09 19:02:00 2020-12-10 01:46:00 Emergency Amber Cardozo [facility] [id number] [id number] [id number] [facility] 2020-12-09 18:54:00 2020-12-09 18:54:00 Emergency X [facility] [id number] [facility] 2020-06-16 15:24:00 2020-06-16 17:00:00 Emergency Qiana Valdez [facility] [id number] [id number] [id number] [id number] 2020-06-16 15:24:00 2020-06-16 17:00:00 Emergency Qiana Valdez [facility] [id number] [id number] [id number] [id number] [facility] 2020-06-16 15:18:00 2020-06-16 15:18:00 Emergency X [facility] [id number] [facility] 2020-01-27 14:14:00 2020-01-27 14:14:00 Emergency X [facility] [id number] [facility] Results Test Description Test Time Test Comments Results Result Co mments Source HEPATITIS PANEL, [id number] 04:44:57* Test Item Value Reference Range Interpretation Comme nts HEPATITIS A IgM (test code = 71349) NON-REACTIVE NON-REACTIVE HEPATITIS B CORE IgM (test code = 4644) NON-REACTIVE NON-REACTIVE HEPATITIS B SURF AG (test code = 2739) NON-REACTIVE NON-REACTIVE HEPATITIS C ANTIBODY (test code = 4675) NON-REACTIVE NON-REACTIVE INTERPRETATION HEPATITIS A: (test code = 2552) (NOTE) Hepatitis A sero logy shows no evidence of acute hepatitis A. INTERPRETATION HEPATITIS B: (test code = 30670) (NOTE) Hepatitis B sero logy shows no evidence of acute hepatitis B andno indication of exposure to hepatitis B virus in the previous jie eight months. INTERPRETATION HEPATITIS C: (test code = 87666) (NOTE) Hepatitis C sero logy shows no evidence of exposure to hepatitisC virus at this time. It can take up to 12 months after exposure tothe hepatitis C virus for antibodies to become detectable in the blood in certain patients. UNLESS OTHERWISE INDICATED, ALL TESTING PERFORMED AT [facility] [address] [place] [id number] STRAP BUCKLER MACHINE: ALONSO SOTO M.D. CLIA NUMBER [id number] [facility] [place]. [id number] RPR REFLEX TO T. PALLIDUM - [id number] 00:40:59* Test Item Value Reference Range Interpretation Comme nts RPR (test code = 28900) NON-REACTIVE NON-REACTIVE RPR TITER (test code = 3500) NOT INDIC. TITER NOT INDIC. CT/NG, NAAT, [id number] 14:03:37* Test Item Value Reference Range Interpretation Comme nts CHLAMYDIA, NAAT, URINE (test code = 56665) NEGATIVE NEGATIVE Testing is perfo rmed with Ronit JAGDEEP 6800/8800 systems usingreal-time polymerase chain reaction (PCR) method. A negative result does not exclude low level infection, specimensampling error, or collection error. GONORRHEA, NAAT, URINE (test code = 87099) NEGATIVE NEGATIVE Testing is perfo rmed with Ronit JAGDEEP 6800/8800 systems usingreal-time polymerase chain reaction (PCR) method. A negative result does not exclude low level infection, specimensampling error, or collection error. CT/NG, NAAT, [id number] 00:00:00* Test Item Value Reference Range Interpretation Comme nts CHLAMYDIA, NAAT, URINE (test code = 16888) NEGATIVE GONORRHEA, NAAT, URINE (test code = 89904) NEGATIVE Mariusz F AustinCT/NG, NAAT, [id number] 23:09:43* Test Item Value Reference Range Interpretation Comme nts CHLAMYDIA, NAAT, URINE (test code = 69095) NEGATIVE NEGATIVE Testing is perfo rmed with Ronit JAGDEEP 6800/8800 systems usingreal-time polymerase chain reaction (PCR) method. A negative result does not exclude low level infection, specimensampling error, or collection error. GONORRHEA, NAAT, URINE (test code = 95724) NEGATIVE NEGATIVE Testing is perfo rmed with Ronit JAGDEEP 6800/8800 systems usingreal-time polymerase chain reaction (PCR) method. A negative result does not exclude low level infection, specimensampling error, or collection error. CT/NG, NAAT, [id number] 00:00:00* Test Item Value Reference Range Interpretation Comme nts CHLAMYDIA, NAAT, URINE (test code = 85464) NEGATIVE GONORRHEA, NAAT, URINE (test code = 23549) NEGATIVE Mariusz F AustinCT/NG, NAAT, [id number] 00:00:00* Test Item Value Reference Range Interpretation Comme nts CHLAMYDIA, NAAT, URINE (test code = 79995) NEGATIVE GONORRHEA, NAAT, URINE (test code = 26457) NEGATIVE Mariusz LeighPES SIMPLEX AB, [id number] 18:44:31* Test Item Value Reference Range Interpretation Comme nts HERPES SIMPLEX AB, IgM (test code = 98340) 1.97 INDEX SEE BELOW H IMPORTANT NOTE: HSV IgM ASSAYS ARE NOT TYPE-SPECIFIC. THE BIOLOGICALIgM RESPONSE WITH PRIMARY INFECTIONS IS VARIABLE AND MAY BEUNDETECTABLE; WITH RECURRENT INFECTIONS IgM MAY OR MAY NOT BEDETECTED. FALSE POSITIVE RESULTS UNRELATED TO HSV INFECTION CAN OCCURWITH HSV IgM ASSAYS. ALL RESULTS SHOULD BE REVIEWED IN CLINICALCONTEXT, AND COMPARISON TO ACUTE OR CONVALESCENT TYPE-SPECIFIC [id number] HSV2 IgG ASSAYS SHOULD BE CONSIDERED. INTERPRETATION UNITS RANGE ----- ----- NEGATIVE INDEX <=0.89 EQUIVOCAL INDEX 0.90-1.09 POSITIVE INDEX >=1.10 HIV 1/2 4TH GEN, RFLX [id number] 05:46:11* Test Item Value Reference Range Interpretation Comme nts HIV 1/2 4TH GEN, RFLX CONF ( test code = 3514) NON-REACTIVE NON-REACTIVE HEPATITIS A [id number] 05:46:11* Test Item Value Reference Range Interpretation Comme nts HEPATITIS A IgM (test code = 2728) NON-REACTIVE NON-REACTIVE UNLESS OTHERW ISE INDICATED, ALL TESTING PERFORMED AT [facility] [address] [place] [address] STRAP BUCKLER MACHINE: ALONSO SOTO M.D. CLIA NUMBER [id number] [facility] [place]. [id number] HEPATITIS PANEL, [id number] 05:46:11* Test Item Value Reference Range Interpretation [...] infection. INTERPRETATION HEPATITIS B: (test code = 85708) (NOTE) Hepatitis B sero logy consistent with immunity to hepatitis Bfrom previous hepatitis B vaccination. INTERPRETATION HEPATITIS C: (test code = 06771) (NOTE) Hepatitis C sero logy shows no evidence of exposure to hepatitisC virus at this time. It can take up to 12 months after exposure tothe hepatitis C virus for antibodies to become detectable in the blood in certain patients. HERPES SIMPLEX 1/2 AB, IgG [id number] 05:46:11* Test Item Value Reference Range Interpretation Comme nts HERPES SIMPLEX 1 AB, IgG (test code = 17810) 0.020 INDEX SEE BELOW INTERPRETATION U NITS RANGE ----- ----- NON-REACTIVE INDEX <1.000 REACTIVE INDEX >=1.000 HERPES SIMPLEX 2 AB, IgG (test code = 85798) 419.000 INDEX SEE BELOW H INTERPRETATION U NITS RANGE ----- ----- NON-REACTIVE INDEX <1.000 REACTIVE INDEX >=1.000 [id number] 04:26:03* Test Item Value Reference Range Interpretation [...] (NOTE) INTERPRETATION HEPATITIS B: (test code = 77955) (NOTE) INTERPRETATION HEPATITIS C: (test code = 05491) (NOTE) Mariusz DietrichHERPES SIMPLEX AB, [id number] 00:00:00* Test Item Value Reference Range Interpretation Comme nts HERPES SIMPLEX AB, IgM (test code = 91558) 1.97 INDEX Mariusz DietrichHERPES SIMPLEX 1/2 ANTIBODY, [id number] 00:00:00* Test Item Value Reference Range Interpretation Comme nts HERPES SIMPLEX 1 AB, IgG (te st code = 26828) 0.020 INDEX HERPES SIMPLEX 2 AB, IgG (te st code = 71860) 419.000 INDEX Mariusz [id number] 00:00:00* Test Item Value Reference Range Interpretation Comme nts RPR RESULT (test code = 3501) NON-REACTIVE RPR TITER (test code = 3500) NOT INDIC. TITER Mariusz DietrichHIV 1/2 4TH GEN, RFLX [id number] 00:00:00* Test Item Value Reference Range Interpretation [...] (NOTE) INTERPRETATION HEPATITIS B: (test code = 96361) (NOTE) INTERPRETATION HEPATITIS C: (test code = 77669) (NOTE) Mariusz Adams AustinHERPES SIMPLEX AB, [id number] 00:00:00* Test Item Value Reference Range Interpretation Comme nts HERPES SIMPLEX AB, IgM (test code = 30359) 1.97 INDEX Mariusz DietrichHERPES SIMPLEX 1/2 ANTIBODY, [id number] 00:00:00* Test Item Value Reference Range Interpretation Comme nts HERPES SIMPLEX 1 AB, IgG (te st code = 11451) 0.020 INDEX HERPES SIMPLEX 2 AB, IgG (te st code = 41254) 419.000 INDEX Mariusz [id number] 00:00:00* Test Item Value Reference Range Interpretation Comme nts RPR RESULT (test code = 3501) NON-REACTIVE RPR TITER (test code = 3500) NOT INDIC. TITER Mariusz DietrichHIV 1/2 4TH GEN, RFLX [id number] 00:00:00* Test Item Value Reference Range Interpretation Comme nts HIV 1/2 4TH GEN, RFLX CONF ( test code = 3514) NON-REACTIVE Mariusz DietrichHEPATITIS A IgM [REFLEX][id number] 00:00:00* Test Item Value Reference Range Interpretation Comme nts HEPATITIS A IgM (test code = 2728) NON-REACTIVE Mariusz DietrichPOCT [id number] 19:42:00* Test Item Value Reference Range Interpretation Comme nts POCT PREG (test code = 1605) negative On board controls acceptable with C Line (test code = 3574) present POCT PREG LOT # (test code = 3575) [id number] POCT PREG TEST DATE ( test code = 3576) 11-27-2023 Lab Interpretation (test cod e = 50291-3) Normal [facility] [place], [place] TEST, THINPREP, [id number] 09:47:06 * Test Item Value Reference Range Interpretation Comme nts SOURCE: (test code = 8001) Cervical/Endoce rvical SLIDES: (test code = 8011) 1 LMP: (test code = 8021) 10/27/2021 SPECIMEN ADEQUACY: (test code = 03085) (NOTE) Satisfactory for evaluation. Endocervical cells/transformation zone component present. INTERPRETATION: (test code = 79014) NILM/NO EPITH. ABNORMALITY;SEE BELOW --- - NEGATIVE FOR INTRAEPITHELIAL LESION OR MALIGNANCY (NILM) ---- BACK PAD INSPECTOR : (test code = 8101) Nery Macedo LOCATION: (test code = 83006) (NOTE) Specimens proces sed and interpreted at [facility], [address] [place], [place] [address], , CLIA: [id number] CPT: (test code = 8140) (NOTE) 62296 UNLESS OTH ERWISE INDICATED, COMPUTER AIDED AND BACK PAD INSPECTOR SCREENING PERFORMED. The Pap test is a screening test with an inherent, but low probability of error. Your patient should be reminded to consult you immediately if she experiences any suspicious signs or symptoms, regardless of her Pap test result. An alternate report format containing images or consolidated prior Pap history is available as applicable. UNLESS OTHERWISE INDICATED, ALL TESTING PERFORMED [facility], [facility]. [address] [place] [address] STRAP BUCKLER MACHINE: ELIF MADISON M.D. CLIA NUMBER [id number] [facility] [place]. [id number] PAP TEST, THINPREP, [id number] 00:00:00* Test Item Value Reference Range Interpretation Comme nts SOURCE: (test code = 8001) Cervical/Endocervical SLIDES: (test code = 8011) 1 LMP: (test code = 8021) 10/27/2021 SPECIMEN ADEQUACY: (test code = 24349) (NOTE) INTERPRETATION: (test code = 53487) NILM/NO EPITH. ABNORMALITY;SEE BELOW BACK PAD INSPECTOR: (test code = 8101) Nery Macedo LOCATION: (test code = 41683) (NOTE) CPT: (test code = 8140) (NOTE) PAP TEST, THINPREP, [id number] 00:00:00* Test Item Value Reference Range Interpretation Comme nts SOURCE: (test code = 8001) Cervical/Endocervical SLIDES: (test code = 8011) 1 LMP: (test code = 8021) 10/27/2021 SPECIMEN ADEQUACY: (test code = 03271) (NOTE) INTERPRETATION: (test code = 16318) NILM/NO EPITH. ABNORMALITY;SEE BELOW BACK PAD INSPECTOR: (test code = 8101) Nery [place] LOCATION: (test code = 75195) (NOTE) CPT: (test code = 8140) (NOTE) Mariusz DietrichPAP TEST, THINPREP, [id number] 00:00:00* Test Item Value Reference Range Interpretation Comme nts SOURCE: (test code = 8001) Cervical/Endocervical SLIDES: (test code = 8011) 1 LMP: (test code = 8021) 10/27/2021 SPECIMEN ADEQUACY: (test code = 97768) (NOTE) INTERPRETATION: (test code = 68324) NILM/NO EPITH. ABNORMALITY;SEE BELOW BACK PAD INSPECTOR: (test code = 8101) [facility] LOCATION: (test code = 21375) (NOTE) CPT: (test code = 8140) (NOTE) Mariusz MolinaP TEST, THINPREP, [id number] 00:00:00* Test Item Value Reference Range Interpretation Comme nts SOURCE: (test code = 8001) Cervical/Endocervical SLIDES: (test code = 8011) 1 LMP: (test code = 8021) 10/27/2021 SPECIMEN ADEQUACY: (test code = 13166) (NOTE) INTERPRETATION: (test code = 53533) NILM/NO EPITH. ABNORMALITY;SEE BELOW BACK PAD INSPECTOR: (test code = 8101) [facility] LOCATION: (test code = 26246) (NOTE) CPT: (test code = 8140) (NOTE) Mariusz Adams AustinVAGINAL PATHOGENS DNA [id number] 14:50:28* Test Item Value Reference Range Interpretation Comme nts DAMIR SPECIES (test code = 41716) NEGATIVE NEGATIVE G. VAGINALIS (test code = 44943) NEGATIVE NEGATIVE T. VAGINALIS (test code = 61251) NEGATIVE NEGATIVE UNLESS OTHERWISE INDICATED, ALL TESTING PERFORMED [facility] [address] [place] [address] STRAP BUCKLER MACHINE: ELIF MADISON M.D. CLIA NUMBER [id number] [place] [id number] 06:56:09* Test Item Value Reference Range Interpretation Comme nts RPR RESULT (test code = 3501) NON-REACTIVE NON-REACTIVE RPR TITER (test code = 3500) NOT INDIC. TITER NOT INDIC. HIV 1/2 4TH GEN, RFLX [id number] 05:54:17* Test Item Value Reference Range Interpretation Comme nts HIV 1/2 4TH GEN, RFLX CONF ( test code = 3514) NON-REACTIVE NON-REACTIVE HEPATITIS PANEL, [id number] 05:54:17* Test Item Value Reference Range Interpretation Comme nts HEPATITIS A IgM (test code = 52663) NON-REACTIVE NON-REACTIVE HEPATITIS B CORE IgM (test code = 4644) NON-REACTIVE NON-REACTIVE HEPATITIS B SURF AG (test code = 2739) NON-REACTIVE NON-REACTIVE HEPATITIS C ANTIBODY (test code = 4675) NON-REACTIVE NON-REACTIVE INTERPRETATION HEPATITIS A: (test code = 2552) (NOTE) Hepatitis A serology shows no evidence of acute hepatitis A. INTERPRETATION HEPATITIS B: (test code = 19870) (NOTE) Hepatitis B serology shows no evidence of acute hepatitis B andno indication of exposure to hepatitis B virus in the previous jie eight months. INTERPRETATION HEPATITIS C: (test code = 08688) (NOTE) Hepatitis C serology shows no evidence of exposure to hepatitisC virus at this time. It can take up to 12 months after exposure tothe hepatitis C virus for antibodies to become detectable in the blood in certain patients. HIV AB/AG COMBO RFLX [id number] 00:00:00* Test Item Value Reference Range Interpretation Comme nts HIV 1/2 4TH GEN, RFLX CONF ( test code = 3514) NON-REACTIVE ACUTE HEPATITIS [id number] 00:00:00* Test Item Value Reference Range Interpretation Comme nts HEPATITIS A IgM (test code = 49523) NON-REACTIVE HEPATITIS B CORE IgM (test c ode = 4644) NON-REACTIVE HEPATITIS B SURF AG (test co de = 2739) NON-REACTIVE HEPATITIS C ANTIBODY (test c ode = 4675) NON-REACTIVE INTERPRETATION HEPATITIS A: (test code = 2552) (NOTE) INTERPRETATION HEPATITIS B: (test code = 11810) (NOTE) INTERPRETATION HEPATITIS C: (test code = 46996) (NOTE) [id number] 00:00:00* Test Item Value Reference Range Interpretation Comme nts RPR RESULT (test code = 3501) NON-REACTIVE RPR TITER (test code = 3500) NOT INDIC. TITER VAGINAL PATHOGENS DNA [id number] 00:00:00* Test Item Value Reference Range Interpretation Comme nts DAMIR SPECIES (test code = ) NEGATIVE G. VAGINALIS (test code = 96301) NEGATIVE T. VAGINALIS (test code = 88036) NEGATIVE HIV AB/AG COMBO RFLX [id number] 00:00:00* Test Item Value Reference Range Interpretation Comme nts HIV 1/2 4TH GEN, RFLX CONF ( test code = 3514) NON-REACTIVE Mariusz DietrichACUTE HEPATITIS [id number] 00:00:00* Test Item Value Reference Range Interpretation Comme nts HEPATITIS A IgM (test code = 33927) NON-REACTIVE HEPATITIS B CORE IgM (test c ode = 4644) NON-REACTIVE HEPATITIS B SURF AG (test co de = 2739) NON-REACTIVE HEPATITIS C ANTIBODY (test c ode = 4675) NON-REACTIVE INTERPRETATION HEPATITIS A: (test code = 2552) (NOTE) INTERPRETATION HEPATITIS B: (test code = 21592) (NOTE) INTERPRETATION HEPATITIS C: (test code = 55558) (NOTE) Mariusz [id number] 00:00:00* Test Item Value Reference Range Interpretation Comme nts RPR RESULT (test code = 3501) NON-REACTIVE RPR TITER (test code = 3500) NOT INDIC. TITER Mariusz DietrichVAGINAL PATHOGENS DNA [id number] 00:00:00* Test Item Value Reference Range Interpretation Comme nts DAMIR SPECIES (test code = ) NEGATIVE G. VAGINALIS (test code = 74518) NEGATIVE T. VAGINALIS (test code = 24221) NEGATIVE Mariusz DietrichHIV AB/AG COMBO RFLX [id number] 00:00:00* Test Item Value Reference Range Interpretation Comme nts HIV 1/2 4TH GEN, RFLX CONF ( test code = 3514) NON-REACTIVE Mariusz DietrichACUTE HEPATITIS [id number] 00:00:00* Test Item Value Reference Range Interpretation Comme nts HEPATITIS A IgM (test code = 08815) NON-REACTIVE HEPATITIS B CORE IgM (test c ode = 4644) NON-REACTIVE HEPATITIS B SURF AG (test co de = 2739) NON-REACTIVE HEPATITIS C ANTIBODY (test c ode = 4675) NON-REACTIVE INTERPRETATION HEPATITIS A: (test code = 2552) (NOTE) INTERPRETATION HEPATITIS B: (test code = 71673) (NOTE) INTERPRETATION HEPATITIS C: (test code = 70201) (NOTE) Mariusz [id number] 00:00:00* Test Item Value Reference Range Interpretation Comme nts RPR RESULT (test code = 3501) NON-REACTIVE RPR TITER (test code = 3500) NOT INDIC. TITER Mariusz DietrichVAGINAL PATHOGENS DNA [id number] 00:00:00* Test Item Value Reference Range Interpretation Comme nts DAMIR SPECIES (test code = ) NEGATIVE G. VAGINALIS (test code = ) NEGATIVE T. VAGINALIS (test code = ) NEGATIVE Mariusz DietrichHIV AB/AG COMBO RFLX [id number] 00:00:00* Test Item Value Reference Range Interpretation Comme nts HIV 1/2 4TH GEN, RFLX CONF ( test code = 3514) NON-REACTIVE Mariusz DietrichACUTE HEPATITIS [id number] 00:00:00* Test Item Value Reference Range Interpretation Comme nts HEPATITIS A IgM (test code = 98229) NON-REACTIVE HEPATITIS B CORE IgM (test c ode = 4644) NON-REACTIVE HEPATITIS B SURF AG (test co de = 2739) NON-REACTIVE HEPATITIS C ANTIBODY (test c ode = 4675) NON-REACTIVE INTERPRETATION HEPATITIS A: (test code = 2552) (NOTE) INTERPRETATION HEPATITIS B: (test code = 24537) (NOTE) INTERPRETATION HEPATITIS C: (test code = 59869) (NOTE) Mariusz [id number] 00:00:00* Test Item Value Reference Range Interpretation Comme nts RPR RESULT (test code = 3501) NON-REACTIVE RPR TITER (test code = 3500) NOT INDIC. TITER Mariusz DietrichVAGINAL PATHOGENS DNA [id number] 00:00:00* Test Item Value Reference Range Interpretation Comme nts DAMIR SPECIES (test code = ) NEGATIVE G. VAGINALIS (test code = 43284) NEGATIVE T. VAGINALIS (test code = 46194) NEGATIVE Mariusz DietrichSARS-CoV-2 (COVID-19), RT-PCR/[id number] 13:12:43* Test Item Value Reference Range Interpretation Comments SARS-CoV-2 INTERPRETATION (test code = 67175) NEGATIVE SEE NOTE SARS-CoV-2 R NA NOT [...] prevalence is high. SOURCE (test code = 39321) NASOPHARYNGEAL Note: Methodolog y is Ronit Jagdeep Real-Time RT-PCR. The expected result or reference range is NEGATIVE (Not Detected). For more information regarding COVID-19 testing to include clinicalinformation, methodology detail, intended use, FDA authorization andrecommended fact sheets for patients or healthcare providers, see [employer] Announcement: SARS-CoV-2 (COVID-19) by NAAT at URL below (note,fact sheets are provided by method given in report:[email or web address] Alternatively, see downloadable PDF fact sheet at:[email or web address] UNLESS OTHERWISE INDICATED, ALL TESTING PERFORMED [facility] [address] [place] [address] STRAP BUCKLER MACHINE: ELIF MADISON M.D. CLIA NUMBER [id number] [facility] [place]. [id number] SARS-CoV-2 (COVID-19) by RT-PCR (HIGH RISK)2021-09-16 00:00:00* Test Item Value Reference Range Interpretation Comme nts SARS-CoV-2 INTERPRETATION (test code = 42150) NEGATIVE SOURCE (test code = 34952) NASOPHARYNGEAL SARS-CoV-2 (COVID-19) by RT-PCR (HIGH RISK)2021-09-16 00:00:00* Test Item Value Reference Range Interpretation Comme nts SARS-CoV-2 INTERPRETATION (test code = 64926) NEGATIVE SOURCE (test code = 41319) NASOPHARYNGEAL Mariusz F [id number]-4 (COVID-19) by RT-PCR (HIGH RISK)2021-09-16 00:00:00* Test Item Value Reference Range Interpretation Comme nts SARS-CoV-2 INTERPRETATION (test code = 60632) NEGATIVE SOURCE (test code = 77860) NASOPHARYNGEAL Mariusz F DhhaghLNTA-GeL-3 (COVID-19) by RT-PCR (HIGH RISK)2021-09-16 00:00:00* Test Item Value Reference Range Interpretation Comme nts SARS-CoV-2 INTERPRETATION (test code = 08010) NEGATIVE SOURCE (test code = 01580) NASOPHARYNGEAL Mariusz F WiyymiMVLF-QpU-6 (COVID-19), RT-PCR/[id number] 13:37:12* Test Item Value Reference Range Interpretation Comments SARS-CoV-2 INTERPRETATION (test code = 13566) PRESUMPTIVE POSITIVE SEE NOTE A NOTE: PRESUMPTIVE POSITIVE RESULTS ARE MOST CONSISTENT WITH [id number] THE LIMIT OF DETECTION OF THE ASSAY. OTHER UNCOMMON POSSIBLECAUSES ARE A MUTATION IN ONE OF THE TARGET REGIONS, INFECTION WITHANOTHER SARBECOVIRUS OR LABORATORY ISSUES. CORRELATE WITH CLINICALHISTORY AND EPIDEMIOLOGIC FINDINGS. SOURCE (test code = 40514) NASOPHARYNGEAL Note: Methodolog y is Ronit Jagdeep Real-Time RT-PCR. The expected result or reference range is NEGATIVE (Not Detected). For more information regarding COVID-19 testing to include clinicalinformation , methodology detail, intended use, FDA authorization andrecommended fact sheets for patients or healthcare providers, see [facility]: SARS-CoV-2 (COVID-19) by NAAT at URL below (note,fact sheets are provided by method given in report:[email or web address] [email or web address] Alternatively, see downloadable PDF fact sheet at:[email or web address] -PCR Note: Methodology is Ronit Jagdeep Real-Time RT-PCR. The expected result or reference range is NEGATIVE (Not Detected). For more information regarding COVID-19 testing to include clinicalinformation , methodology detail, intended use, FDA authorization andrecommended fact sheets for patients or healthcare providers, see [facility] Announcement: SARS-CoV-2 (COVID-19) by NAAT at URL below (note,fact sheets are provided by method given in report:[email or web address] [email or web address]/ Alternatively, see downloadable PDF fact sheet at:[email or web address] -PCR UNLESS OTHERWISE INDICATED, ALL TESTING PERFORMED [facility], [facility]. [address] [place] [address] STRAP BUCKLER MACHINE: ELIF MADISON M.D. CLIA NUMBER [id number] [facility] [place]. [id number] SARS-CoV-2 (COVID-19) by RT-PCR (HIGH RISK)2021-09-09 00:00:00* Test Item Value Reference Range Interpretation Comme nts SARS-CoV-2 INTERPRETATION (test code = 33804) PRESUMPTIVE POSITIVE SOURCE (test code = 93477) NASOPHARYNGEAL SARS-CoV-2 (COVID-19) by RT-PCR (HIGH RISK)2021-09-09 00:00:00* Test Item Value Reference Range Interpretation Comme nts SARS-CoV-2 INTERPRETATION (test code = 63447) PRESUMPTIVE POSITIVE SOURCE (test code = 04556) NASOPHARYNGEAL Mariusz F NlxmzjMGNY-KxQ-6 (COVID-19) by RT-PCR (HIGH RISK)2021-09-09 00:00:00* Test Item Value Reference Range Interpretation Comme nts SARS-CoV-2 INTERPRETATION (test code = 60535) PRESUMPTIVE POSITIVE SOURCE (test code = 45666) NASOPHARYNGEAL Mariusz F DwglyxCASX-TyQ-5 (COVID-19) by RT-PCR (HIGH RISK)2021-09-09 00:00:00* Test Item Value Reference Range Interpretation Comme nts SARS-CoV-2 INTERPRETATION (test code = 88231) PRESUMPTIVE POSITIVE SOURCE (test code = 53118) NASOPHARYNGEAL Mariusz F AustinBASIC METABOLIC PANEL (NA, K, CL, CO2, GLUCOSE, BUN, CREATININE, CA)2021-08-25 01:45:53* Test Item Value Reference Range Interpretation Comme nts NA (test code = 6318379445) 136 mmol/L 135-145 K (test code = 3052976424) 4.1 mmol/L 3.5-5.0 CL (test code = 2877192637) 102 mmol/L 98-108 CO2 TOTAL (test code = 8215449821) 29 mmol/L 23-31 AGAP (test code = 0129322550) 2-16 BUN (test code = 7939559051) 9 mg/dL 7-23 GLUCOSE (test code = 7870625374) 92 mg/dL 70-110 CREATININE (test code = 1420059791) 0.54 mg/dL 0.50-1.04 CALCIUM (test code = 2742276815) 8.5 mg/dL 8.6-10.6 L eGFR (test code = 4740647117) mL/min/1.73m2 EMERALD (test code = EMERALD) Association [...] imaging tests). Lab Interpretation (test code = 91009-3) Abnormal [facility] WITH [id number] 01:34:37* Test Item Value Reference Range Interpretation Comme nts WBC (test code = 6690-2) See_Comment [Automated messa ge] The system which generated this result transmitted reference range: 4.30 - 11.10 10*3/?L. The reference range was not used to interpret this result as normal/abnormal. RBC (test code = 789-8) See_Comment [Automated [employer]ius Networksa ge] The system which generated this result [...] 33.7 g/dL 31.6-35.1 RDW-SD (test code = 32561-0) 41.3 fL 39.0-49.9 RDW-CV (test code = 788-0) 12.7 % 12.0-15.5 PLT (test code = 777-3) See_Comment [Automated [employer]a ge] The system which generated this result transmitted reference range: 166 - 358 10*3/?L. The reference range was not used to interpret this result as normal/abnormal. MPV (test code = 98143-4) 9.1 fL 9.5-12.9 L NRBC/100 WBC (test code = 2445313747) See_Comment [Automated Yant[employer] ssage] The system which generated this result transmitted reference range: 0.0 - 10.0 /100 WBCs. The reference range was not used to interpret this result as normal/abnormal. NRBC x10^3 (test code = 6427485065) <0.01 See_Comment [Automated messa ge] The system which generated this result transmitted reference range: 10*3/?L. The reference range was not used to interpret this result as normal/abnormal. GRAN MAT (NEUT) % (test code = 770-8) 49.6 % IMM GRAN % (test code = 6415708353) 0.20 % LYMPH % (test code = 736-9) 39.5 % MONO % (test code = 5905-5) 9.0 % EOS % (test code = 713-8) 1.3 % BASO % (test code = 706-2) 0.4 % GRAN MAT x10^3(ANC) (test code = 5350002295) 2.36 10*3/uL 1.88-7.09 IMM GRAN x10^3 (test code = 6977820958) <0.03 0.00-0.06 LYMPH x10^3 (test code = 731-0) 1.88 10*3/uL 1.32-3.29 MONO x10^3 (test code = 742-7) 0.43 10*3/uL 0.33-0.92 EOS x10^3 (test code = 711-2) 0.06 10*3/uL 0.03-0.39 BASO x10^3 (test code = 704-7) <0.03 0.01-0.07 Lab Interpretation (test code = 37248-3) Abnormal [facility] [place], TXPOCT [id number] 01:28:00* Test Item Value Reference Range Interpretation Comme nts POCT PREG (test code = 1605) negative On board controls acceptable with C Line (test code = 3574) present POCT PREG LOT # (test code = 3575) [id number] POCT PREG TEST DATE ( test code = 3576) 09/28/2022 Lab Interpretation (test cod e = 92081-7) Normal [facility] [place], TXDRUG SCREEN ER (URINE)2020-12-10 05:28:49* Test Item Value Reference Range Interpretation Comme nts AMPHET (test code = 7753287493) Negative Negative Cocaine Metabolite (test code = 1620187815) Negative Negative OPIATES (test code = 7273939787) Presumptive Positive Negative A THC (test code = 0138601210) Negative Negative EMERALD (test code = EMERALD) Urine Drug Cutoff Ranges Amphetamine: ? 1,000 ng/mLCocaine: ? 150 ng/mLOpiates: ? 300 ng/mLCannabinoids: ?50 ng/mL The results are to be used only for medical (i.e., treatment) purposes. Unconfirmed screening results must not be used for non-medical purposes (e.g., employment testing, legal testing). Lab Interpretation (test code = 28502-0) Abnormal [facility] [place], TXCT ABDOMEN PELVIS WO [id number] 04:25:17No acute intra-abdominal or pelvic abnormality. No genitourinary stones. Complex right ovarian cyst, likely hemorrhagic cyst measuring 3.8 cm RL: [id number]: [id number] Patient name: LORNA BREWER MARIDOB: 1995 25 years EXAMINATION: CT A BDOMEN [...] User- 12/09/2020 11:26 PM CDTPatient name: LORNA GUERRADOB: [...] hemorrhagic cyst aisha suring 3.8 cmRL: 6200AF: [address] [facility] [place], TXUrinalysis2021-04-14 02:12:28* Test Item Value Reference Range Interpretation Comme nts APPEARANCE (test code = 8748319081) Hazy Clear A COLOR (test code = 5194059549) Yellow Yellow PH (test code = 8278223919) 4.8-8.0 SP GRAVITY (test code = 5677320443) 1.003-1.030 GLU U QUAL (test code = 4534166620) Normal Normal BLOOD (test code = 2865610538) Negative Negative KETONES (test code = 2393252673) Negative Negative PROTEIN (test code = 2887-8) Negative Negative UROBILIN (test code = 2684501714) 4.0 mg/dL Normal A BILIRUBIN (test code = 9872037624) Negative Negative NITRITE (test code = 9279682382) Negative Negative LEUK HOLLEY (test code = 1169627768) Negative Negative RBC/HPF (test code = 2520041773) See_Comment H [Automated [employer]] The system which generated this result transmitted reference range: 0 - 3 HPF. The reference range was not used to interpret this result as normal/abnormal. WBC/HPF (test code = 6778255304) See_Comment [Automated [employer] ge] The system which generated this result transmitted reference range: 0 - 5 HPF. The reference range was not used to interpret this result as normal/abnormal. BACTERIA (test code = 6442616758) Negative Negative MUCOUS (test code = 3295300361) Slight Negative LPF A SQ EPITH (test code = 9100429939) HPF YEAST BUD (test code = 1026010429) See_Comment H [Automated [employer]] The system which generated this result transmitted reference range: <=1 HPF. The reference range was not used to interpret this result as normal/abnormal. Lab Interpretation (test code = 25411-1) Abnormal [facility] [place], [place]Complete Metabolic [id number] 02:09:13* Test Item Value Reference Range Interpretation Comme nts NA (test code = 1194944502) 137 mmol/L 135-145 K (test code = 4984182906) 3.7 mmol/L 3.5-5.0 CL (test code = 8703972419) 103 mmol/L 98-108 CO2 TOTAL (test code = 4837639657) 26 mmol/L 23-31 AGAP (test code = 7919530098) 2-16 BUN (test code = 8632603041) 12 mg/dL 7-23 GLUCOSE (test code = 7930608302) 92 mg/dL 70-110 CREATININE (test code = 2416904894) 0.62 mg/dL 0.50-1.04 TOTAL BILI (test code = 8558811521) 0.4 mg/dL 0.1-1.1 CALCIUM (test code = 2860543752) 8.9 mg/dL 8.6-10.6 T PROTEIN (test code = 6611779156) 7.1 g/dL 6.3-8.2 ALBUMIN (test code = 5269806445) 4.4 g/dL 3.5-5.0 ALK PHOS (test code = 2200979878) 79 U/L 34-122 ALTv (test code = 1742-6) 16 U/L 5-35 AST(SGOT) (test code = 9281423517) 23 U/L 13-40 eGFR (test code = 8678453220) mL/min/1.73m2 EMERALD (test code = EMERALD) Association [...] or urine or abnormalities in imaging tests). [facility] [place], TXLipase, [id number] 02:08:38* Test Item Value Reference Range Interpretation Comme nts LIPASE (test code = 7736724395) 53 U/L 0-220 Lab Interpretation (test cod e = 04749-3) Normal [facility] [place], [place]CBC with [id number] 02:00:16* Test Item Value Reference Range Interpretation Comme nts WBC (test code = 6690-2) See_Comment [Automated [employer]] The system which generated this result transmitted reference range: 4.30 - 11.10 10*3/?L. The reference range was not used to interpret this result as normal/abnormal. RBC (test code = 789-8) See_Comment [Automated [employer]] The system which generated this result transmitted [...] 33.6 g/dL 31.6-35.1 RDW-SD (test code = 50371-9) 42.6 fL 39.0-49.9 RDW-CV (test code = 788-0) 13.2 % 12.0-15.5 PLT (test code = 777-3) See_Comment [Automated [employer]] The system which generated this result transmitted reference range: 166 - 358 10*3/?L. The reference range was not used to interpret this result as normal/abnormal. MPV (test code = 20657-2) 9.5 fL 9.5-12.9 NRBC/100 WBC (test code = 7622520930) See_Comment [Automated [employer]] The system which generated this result transmitted reference range: 0.0 - 10.0 /100 WBCs. The reference range was not used to interpret this result as normal/abnormal. NRBC x10^3 (test code = 1968615748) <0.01 See_Comment [Automated [employer]] The system which generated this result transmitted reference range: 10*3/?L. The reference range was not used to interpret this result as normal/abnormal. GRAN MAT (NEUT) % (test code = 770-8) 59.6 % IMM GRAN % (test code = 8721301556) 0.30 % LYMPH % (test code = 736-9) 31.8 % MONO % (test code = 5905-5) 6.4 % EOS % (test code = 713-8) 1.4 % BASO % (test code = 706-2) 0.5 % GRAN MAT x10^3(ANC) (test code = 1755762929) 5.15 10*3/uL 1.88-7.09 IMM GRAN x10^3 (test code = 7705039494) 0.03 10*3/uL 0.00-0.06 LYMPH x10^3 (test code = 731-0) 2.75 10*3/uL 1.32-3.29 MONO x10^3 (test code = 742-7) 0.55 10*3/uL 0.33-0.92 EOS x10^3 (test code = 711-2) 0.12 10*3/uL 0.03-0.39 BASO x10^3 (test code = 704-7) 0.04 10*3/uL 0.01-0.[address] [facility] [place], TXPOCT [id number] 01:46:00* Test Item Value Reference Range Interpretation Comme nts POCT PREG (test code = 1605) negative On board controls acceptable with C Line (test code = 3574) present Lab Interpretation (test cod e = 37064-9) Normal [facility] [place], TXSARS-CoV-2 (COVID-19) by RT-PCR (HIGH RISK) 2020-12-03 00:00:00* Test Item Value Reference Range Interpretation Comme nts SARS-CoV-2 INTERPRETATION (t est code = 98818) NEGATIVE SOURCE (test code = 72995) NOT SPECIFIED SARS-CoV-2 (COVID-19) by RT-PCR (HIGH RISK)2020-12-03 00:00:00* Test Item Value Reference Range Interpretation Comme nts SARS-CoV-2 INTERPRETATION (t est code = 86742) NEGATIVE SOURCE (test code = 94396) NOT SPECIFIED Mariusz Adams CdcothWRCT-SqD-2 (COVID-19) by RT-PCR (HIGH RISK)2020-12-03 00:00:00* Test Item Value Reference Range Interpretation Comme nts SARS-CoV-2 INTERPRETATION (t est code = 57913) NEGATIVE SOURCE (test code = 82485) NOT SPECIFIED Mariusz Adams PmdrizBVNX-IqT-9 (COVID-19) by RT-PCR (HIGH RISK)2020-12-03 00:00:00* Test Item Value Reference Range Interpretation Comme nts SARS-CoV-2 INTERPRETATION (t est code = 86688) NEGATIVE SOURCE (test code = 18375) NOT SPECIFIED Mariusz DietrichPAP TEST, THINPREP, [id number] 00:00:00* Test Item Value Reference Range Interpretation Comme nts SOURCE: (test code = 8001) Cervical/Endocervical SLIDES: (test code = 8011) 1 LMP: (test code = 8021) 03/16/17 SPECIMEN ADEQUACY: (test code = 63656) (NOTE) INTERPRETATION: (test code = 18155) NO EPITHELIAL ABNORMALITY SEE BELOW BACK PAD INSPECTOR: (test code = 8101) LITO Skaggs(ASCP) QC TECHNOLOGIST: (test code = 8111) LITO Woods(ASCP)IAC LOCATION: (test code = 05864) (NOTE) CPT: (test code = 8140) (NOTE) GC AND CHLAMYDIA AMPLIFIED, [id number] 00:00:00* Test Item Value Reference Range Interpretation Comme nts GONORRHEA, TMA (test code = 37864) NEGATIVE CHLAMYDIA, TMA (test code = 37533) NEGATIVE PAP TEST, THINPREP, [id number] 00:00:00* Test Item Value Reference Range Interpretation Comme nts SOURCE: (test code = 8001) Cervical/Endocervical SLIDES: (test code = 8011) 1 LMP: (test code = 8021) 03/16/17 SPECIMEN ADEQUACY: (test code = 74855) (NOTE) INTERPRETATION: (test code = 40685) NO EPITHELIAL ABNORMALITY SEE BELOW BACK PAD INSPECTOR: (test code = 8101) LITO Skaggs(ASCP) QC TECHNOLOGIST: (test code = 8111) LITO Woods(ASCP)IAC LOCATION: (test code = 35448) (NOTE) CPT: (test code = 8140) (NOTE) Mariusz F AustinGC AND CHLAMYDIA AMPLIFIED, [id number] 00:00:00* Test Item Value Reference Range Interpretation Comme nts GONORRHEA, TMA (test code = 26599) NEGATIVE CHLAMYDIA, TMA (test code = 55225) NEGATIVE Mariusz DietrichPAP TEST, THINPREP, [id number] 00:00:00* Test Item Value Reference Range Interpretation Comme nts SOURCE: (test code = 8001) Cervical/Endocervical SLIDES: (test code = 8011) 1 LMP: (test code = 8021) 03/16/17 SPECIMEN ADEQUACY: (test code = 93845) (NOTE) INTERPRETATION: (test code = 52713) NO EPITHELIAL ABNORMALITY SEE BELOW BACK PAD INSPECTOR: (test code = 8101) LITO Skaggs(ASCP) QC TECHNOLOGIST: (test code = 8111) LITO Woods(ASCP)IAC LOCATION: (test code = 23914) (NOTE) CPT: (test code = 8140) (NOTE) Mariusz DietrichGC AND CHLAMYDIA AMPLIFIED, [id number] 00:00:00* Test Item Value Reference Range Interpretation Comme nts GONORRHEA, TMA (test code = 67158) NEGATIVE CHLAMYDIA, TMA (test code = 22939) NEGATIVE Mariusz Angie KarloPAP TEST, THINPREP, [id number] 00:00:00* Test Item Value Reference Range Interpretation Comme nts SOURCE: (test code = 8001) Cervical/Endocervical SLIDES: (test code = 8011) 1 LMP: (test code = 8021) 03/16/17 SPECIMEN ADEQUACY: (test code = 55823) (NOTE) INTERPRETATION: (test code = 78711) NO EPITHELIAL ABNORMALITY SEE BELOW BACK PAD INSPECTOR: (test code = 8101) LITO Skaggs(ASCP) QC TECHNOLOGIST: (test code = 8111) LITO Woods(ASCP)IAC LOCATION: (test code = 49746) (NOTE) CPT: (test code = 8140) (NOTE) Mariusz Angie Jose E AND CHLAMYDIA AMPLIFIED, [id number] 00:00:00* Test Item Value Reference Range Interpretation Comme nts GONORRHEA, TMA (test code = 17140) NEGATIVE CHLAMYDIA, TMA (test code = 94850) NEGATIVE Mariusz Adams KarloHIV AB/AG COMBO RFLX [id number] 00:00:00* Test Item Value Reference Range Interpretation Comme nts HIV 1/2 4TH GEN, RFLX CONF ( test code = 3514) NON-REACTIVE [id number] 00:00:00* Test Item Value Reference Range Interpretation Comme nts RPR RESULT (test code = 3501) NON-REACTIVE RPR TITER (test code = 3500) NOT INDIC. TITER ACUTE HEPATITIS [id number] 00:00:00* Test Item Value Reference Range Interpretation Comme nts HEPATITIS A IgM (test code = 01493) NON-REACTIVE HEPATITIS B CORE IgM (test c ode = 4644) NON-REACTIVE HEPATITIS B SURF AG (test co de = 2739) NON-REACTIVE HEPATITIS C ANTIBODY (test c ode = 4675) NON-REACTIVE INTERPRETATION HEPATITIS A: (test code = 2552) (NOTE) INTERPRETATION HEPATITIS B: (test code = 09509) (NOTE) INTERPRETATION HEPATITIS C: (test code = 72515) (NOTE) HIV AB/AG COMBO RFLX [id number] 00:00:00* Test Item Value Reference Range Interpretation Comme nts HIV 1/2 4TH GEN, RFLX CONF ( test code = 3514) NON-REACTIVE Mariusz [id number] 00:00:00* Test Item Value Reference Range Interpretation Comme nts RPR RESULT (test code = 3501) NON-REACTIVE RPR TITER (test code = 3500) NOT INDIC. TITER Mariusz Adams AustinACUTE HEPATITIS [id number] 00:00:00* Test Item Value Reference Range Interpretation Comme nts HEPATITIS A IgM (test code = 36550) NON-REACTIVE HEPATITIS B CORE IgM (test c ode = 4644) NON-REACTIVE HEPATITIS B SURF AG (test co de = 2739) NON-REACTIVE HEPATITIS C ANTIBODY (test c ode = 4675) NON-REACTIVE INTERPRETATION HEPATITIS A: (test code = 2552) (NOTE) INTERPRETATION HEPATITIS B: (test code = 66089) (NOTE) INTERPRETATION HEPATITIS C: (test code = 37917) (NOTE) Mariusz DietrichHIV AB/AG COMBO RFLX [id number] 00:00:00* Test Item Value Reference Range Interpretation Comme nts HIV 1/2 4TH GEN, RFLX CONF ( test code = 3514) NON-REACTIVE Mariusz Adams [id number] 00:00:00* Test Item Value Reference Range Interpretation Comme nts RPR RESULT (test code = 3501) NON-REACTIVE RPR TITER (test code = 3500) NOT INDIC. TITER Mariusz Adams AustinACUTE HEPATITIS [id number] 00:00:00* Test Item Value Reference Range Interpretation Comme nts HEPATITIS A IgM (test code = 65418) NON-REACTIVE HEPATITIS B CORE IgM (test c ode = 4644) NON-REACTIVE HEPATITIS B SURF AG (test co de = 2739) NON-REACTIVE HEPATITIS C ANTIBODY (test c ode = 4675) NON-REACTIVE INTERPRETATION HEPATITIS A: (test code = 2552) (NOTE) INTERPRETATION HEPATITIS B: (test code = 63978) (NOTE) INTERPRETATION HEPATITIS C: (test code = 76233) (NOTE) Mariusz DietrichHIV AB/AG COMBO RFLX [id number] 00:00:00* Test Item Value Reference Range Interpretation Comme nts HIV 1/2 4TH GEN, RFLX CONF ( test code = 3514) NON-REACTIVE Mariusz [id number] 00:00:00* Test Item Value Reference Range Interpretation Comme nts RPR RESULT (test code = 3501) NON-REACTIVE RPR TITER (test code = 3500) NOT INDIC. TITER Mariusz DietrichACUTE HEPATITIS [id number] 00:00:00* Test Item Value Reference Range Interpretation Comme nts HEPATITIS A IgM (test code = 72887) NON-REACTIVE HEPATITIS B CORE IgM (test c ode = 4644) NON-REACTIVE HEPATITIS B SURF AG (test co de = 2739) NON-REACTIVE HEPATITIS C ANTIBODY (test c ode = 4675) NON-REACTIVE INTERPRETATION HEPATITIS A: (test code = 2552) (NOTE) INTERPRETATION HEPATITIS B: (test code = 30426) (NOTE) INTERPRETATION HEPATITIS C: (test code = 64598) (NOTE) Mariusz Adams Karlo"
[2024-08-07] MEDS ORDERED: CEFTRIAXONE 1000 MG/VIAL ONE (16:47)
[2024-08-07] MEDS ORDERED: ONDANSETRON 4 MG (ODT) TAB ONE (16:48)
[2024-08-07] MEDS ORDERED: DOXYCYCLINE 100 MG CAP PO ONE (16:48)
[2024-08-07] MEDS ORDERED: metroNIDAZOLE 500 MG TABLET ONE (16:48)
[2024-08-07] MEDS ORDERED: LIDOCAINE 1% MPF 2 ML AMPULE ONE (16:48)
[2024-08-07 16:53] LABS: Specific Gravity > 1.030 (1.005-1.030)
[2024-08-07 16:55] LABS: Specific Gravity > 1.030 (1.005-1.030); Urine Bacteria None Seen /HPF (<20); Urine Bilirubin NEGATIVE (Negative); Urine Blood Negative (Negative); Urine Clarity Turbid (Clear); Urine Color Yellow (Yellow); Urine Culture Reflex Order NOT NEEDED; Urine Glucose NEGATIVE (Negative); Urine Ketones NEGATIVE (Negative); Urine Micro Reflex YN NO BILL MICROSCOPIC; Urine Mucus 1+ /HPF (None Seen); Urine Nitrite NEGATIVE (Negative); Urine Protein TRACE (Negative); Urine Urobilinogen Normal (Normal); Urine WBC <5 /HPF (<5)
--- NOTE | 2024-08-07 17:28 | EDPHYS ---
Physician Documentation [facility] Name: Lilia Nunez Age: 29 yrs Sex: Female : 1995 Arrival Date: 08/07/2024 Time: 15:21 Bed 11 Private MD: ED Physician Nedra North HPI: 08/07 16:20 This 29 yrs old Female presents to ER via Ambulatory with complaints of Pelvic sb4 Pain - x1wk. 16:20 The patient presents with pelvic pain, that is located in/on the suprapubic area, a sb4 possible exposure to a sexually transmitted disease, gonorrhea, chlamydia, and has been treated with nothing to date, urinary symptoms, dysuria. Onset: The symptoms/episode began/occurred 1 week(s) ago. The patient is sexually active, does not use protection during intercourse. The patient has experienced a previous episode. 16:23 pelvic pain, vaginal discharge x 1 week after unprotected sex. no n/v/fever. 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 Historical: - Allergies: 16:19 Oxycodone; cm10 - PMHx: 16:19 None; cm10 - Immunization history:: Adult Immunizations up to date. - Infectious Disease History:: Denies. - Social history:: Smoking status: unknown. ROS: 16:21 Constitutional: Negative for fever, chills, and weight loss, sb4 16:21 : Positive for urinary symptoms, burning with urination, foul smelling urine, vaginal discharge, 16:21 All other systems are negative, Exam: 16:21 Head/Face: Normocephalic, atraumatic. Eyes: Extra-ocular motions intact. Periorbital sb4 areas with no swelling, redness, or edema. ENT: Mucous membranes moist. Respiratory: No increased work of breathing, no retractions or nasal flaring. Abdomen/GI: Soft, non-tender, no distension. Skin: Warm, dry with normal turgor. Normal color with no rashes, no lesions, and no evidence of cellulitis. 16:21 Constitutional: The patient appears alert, awake, uncomfortable, Vital Signs: 16:17 BP 112 / 83; Pulse 76; Resp 15; Temp 97.2; Pulse Ox 100% on R/A; Weight 72.57 kg; cm10 Height 5 ft. 2 in. ; Pain 8/10; 17:43 BP 110 / 80; Pulse 75; Resp 15; Pulse Ox 100% ; jl7 16:17 Body Mass Index 29.26 (72.57 kg, 157.48 cm) cm10 16:17 Pain Scale: Adult cm10 MDM: 16:20 Medical Screening Exam initiated sb4 16:43 Differential diagnosis: pelvic inflammatory disease, urinary tract infection, sb4 vaginosis, STI. Data reviewed: vital signs, nurses notes, lab test result(s). 17:26 Counseling: I had a detailed discussion with the patient and/or guardian regarding the sb4 historical points, exam findings, and any diagnostic results supporting the discharge/admit diagnosis, lab results, to return to the emergency department if symptoms worsen or persist or if there are any questions or concerns that arise at home. 08/07 16:19 Order name: UAM; Complete Time: 16:59 sb4 08/07 16:19 Order name: Urine Culture sb4 08/07 16:19 Order name: Test, Urine; Complete Time: 16:54 sb4 08/07 16:19 Order name: GC (Priyank/Chl) Probe URINE sb4 Administered Medications: 17:04 Drug: Rocephin (cefTRIAXone) IM 1 grams IM once Route: IM; Site: right ventrogluteal; jl7 17:44 Follow up: Response: No adverse reaction jl7 17:04 Drug: Doxycycline PO 100 mg PO once Route: PO; jl7 17:44 Follow up: Response: No adverse reaction jl7 17:04 Drug: metroNIDAZOLE PO 500 mg PO once Route: PO; jl7 17:44 Follow up: Response: No adverse reaction jl7 17:04 Drug: Ondansetron PO 4 mg PO once Route: PO; jl7 17:44 Follow up: Response: No adverse reaction; Nausea is decreased jl7 Disposition: 17:26 Chart complete. sb4 Disposition Summary: 08/07/24 17:27 Discharge Ordered Notes: Location: Home sb4 Problem: new sb4 Symptoms: have improved sb4 Condition: Stable sb4 Diagnosis - Contact with and (suspected) exposure to infections with a predominantly sexual sb4 mode of transmission Followup: sb4 - With: Private Physician - When: As needed - Reason: Recheck today's complaints, Re-evaluation by your physician Discharge Instructions: - Discharge Summary Sheet sb4 - Chlamydia, Female sb4 - Gonorrhea sb4 - Vaginitis, Przv-zy-Orwj sb4 Forms: - Work release form ss - Antibiotic Education sb4 - Patient Portal Instructions sb4 - Leadership Thank You Letter sb4 Prescriptions: - Flagyl 500 mg Oral Tablet - take 1 tablet ORAL route every 12 hours for 7 days; 14 tablet; Refills: 0, sb4 Product Selection Permitted - Doxycycline Hyclate 100 mg Oral Tablet - take 1 tablet ORAL route every 12 hours; 20 tablet; Refills: 0, Product sb4 Selection Permitted Signatures: Dispatcher [employer] Elio Connor RN RN jl7 Cristiane Cantrell PA-C PAPamela sb4 Carla Gillespie RN RN cm10
--- NOTE | 2024-08-07 17:28 | ER ---
Nurse's Notes [facility] Name: Lilia Nunez Age: 29 yrs Sex: Female : 1995 Arrival Date: 08/07/2024 Time: 15:21 Bed 11 Private MD: Diagnosis: Contact with and (suspected) exposure to infections with a predominantly sexual mode of transmission Presentation: 08/07 16:17 Chief complaint: Patient states: PELVIC PAIN ONSET 1 WEEK AGO S/P UNPROTECTED SEX. PT cm10 REPORTS THAT SHE ALSO HAS A "FISHY ODOR." PT REPORTS TAKING AN OXY FROM A FRIEND AND MAKING HER ITCHY. Coronavirus screen: Client denies travel out of the [place] in the last 14 days. Ebola Screen: Patient denies travel to an Ebola-affected area in the 21 days before illness onset. No symptoms or risks identified at this time. Initial Sepsis Screen: Does the patient meet any 2 criteria? No. Patient's initial sepsis screen is negative. Does the patient have a suspected source of infection? No. Patient's initial sepsis screen is negative. Risk Assessment: Do you want to hurt yourself or someone else? Patient reports no desire to harm self or others. Onset of symptoms was August 07, 2024. 16:17 Method Of Arrival: Ambulatory cm10 16:17 Acuity: TERRY 3 cm10 Triage Assessment: 16:19 General: Appears in no apparent distress. uncomfortable, Behavior is calm, cooperative. cm10 Neuro: No deficits noted. Level of Consciousness is awake, alert, obeys commands, Oriented to person, place, time, situation, Appropriate for age. Respiratory: No deficits noted. Airway is patent Respiratory effort is even, unlabored, Respiratory pattern is regular, symmetrical. Historical: - Allergies: 16:19 Oxycodone; cm10 - PMHx: 16:19 None; cm10 - Immunization history:: Adult Immunizations up to date. - Infectious Disease History:: Denies. - Social history:: Smoking status: unknown. Screenin:07 [facility] ED Fall Risk Assessment (Adult) History of falling in the last 3 months, jl7 including since admission No falls in past 3 months (0 pts) Confusion or Disorientation No (0 pts) Intoxicated or Sedated No (0 pts) Impaired Gait No (0 pts) Mobility Assist Device Used No (0 pt) Altered Elimination No (0 pt) Score/Fall Risk Level 0 - 2 = Low Risk Oriented to surroundings, Maintained a safe environment. Abuse screen: Denies threats or abuse. Denies injuries from another. Nutritional screening: No deficits noted. Tuberculosis screening: No symptoms or risk factors identified. Assessment: 17:07 General: Appears in no apparent distress. uncomfortable, Behavior is calm, cooperative, jl7 appropriate for age. Pain: Complains of pain in pelvis Pain currently is 8 out of 10 on a pain scale. Neuro: Level of Consciousness is awake, alert, obeys commands, Oriented to person, place, time, situation. Cardiovascular: Patient's skin is warm and dry. GI: Reports nausea. : Reports discharge, from vagina that is malodorous, pain in suprapubic area. Derm: Skin is pink, warm \\T\\ dry. Vital Signs: 16:17 BP 112 / 83; Pulse 76; Resp 15; Temp 97.2; Pulse Ox 100% on R/A; Weight 72.57 kg; cm10 Height 5 ft. 2 in. ; Pain 8/10; 17:43 BP 110 / 80; Pulse 75; Resp 15; Pulse Ox 100% ; jl7 16:17 Body Mass Index 29.26 (72.57 kg, 157.48 cm) cm10 16:17 Pain Scale: Adult cm10 ED Course: 15:25 Patient arrived in ED. ra3 15:27 Cristiane Cantrell PA-C [facility] sb4 15:27 Nedra North MD is Attending Physician. sb4 16:19 Triage completed. cm10 16:19 Arm band placed on right wrist. Patient placed in waiting room. cm10 16:31 Elio Dawn, LYNETTE is Primary Nurse. jl7 17:07 Patient has correct armband on for positive identification. Bed in low position. Call pedro7 light in reach. Side rails up X 1. Provided Education on: use of call murphy. 17:07 No provider procedures requiring assistance completed. Urine collected: clean catch essence specimen, cloudy. 17:09 Primary Nurse role handed off by Elio Dawn, LYNETTE [email or web address] 17:43 Elio Dawn RN is Primary Nurse. jl7 17:43 Patient did not have IV access during this emergency room visit. jl7 Administered Medications: 17:04 Drug: Rocephin (cefTRIAXone) IM 1 grams IM once Route: IM; Site: right ventrogluteal; jl7 17:44 Follow up: Response: No adverse reaction jl7 17:04 Drug: Doxycycline PO 100 mg PO once Route: PO; jl7 17:44 Follow up: Response: No adverse reaction jl7 17:04 Drug: metroNIDAZOLE PO 500 mg PO once Route: PO; jl7 17:44 Follow up: Response: No adverse reaction jl7 17:04 Drug: Ondansetron PO 4 mg PO once Route: PO; jl7 17:44 Follow up: Response: No adverse reaction; Nausea is decreased jl7 Medication: 17:07 VIS not applicable for this client. jl7 Outcome: 17:27 Discharge ordered by . angel 17:43 Discharged to home ambulatory, jl7 17:43 Condition: stable 17:43 Discharge instructions given to patient, Instructed on discharge instructions, follow up and referral plans. medication usage, Demonstrated understanding of instructions, follow-up care, medications, Prescriptions given X 2, 17:45 Patient left the ED. jl7 Signatures: Elio Dawn, RN RN jl7 Cristiane Cantrell, PA-Hari PA-Hari [email or web address] Carla Gillespie RN RN cm10 Judith Dewey 3
[2024-08-07 18:30] VITALS: TEMP 97.2; O2SAT 100
[2024-08-07 18:31] VITALS: BP 110/80
[2024-08-11 09:23] LABS: C.trachomatis RNA,TMA Not Detected (Not Detected); N.gonorrhoeae RNA,TMA Not Detected (Not Detected)
== END 2024-08-07 17:45 | disposition home or self-care (01) ==
LOC: ER 15:21
DX: Z20.2 Contact with and (suspected) exposure to infections with a predominantly sexual mode of transmission (principal)
CPT/HCPCS: 81001; 81025; 87086; 87088; 87490; 87590; 96372; 99284; J0696; Q0162

== ENCOUNTER 2024-12-01 16:58 | Emergency (ER) | payer SELFPAY ==
--- OUTSIDE RECORDS SUMMARY | 2024-12-01 17:04 | XMS REPORT | Continuity of Care Document ---
Author Name Unknown Address [address] [facility] [address] [place] [address] [facility] Address [address] [facility] [place] [address] Care Team Providers Care Customer Service Manager Name Role Phone Dena Perry Primary Care Physician SREE LOPEZ Attending Clinician Unavailable Sree Lopez MD Attending Clinician [phone] QIANA VALDEZ Attending Clinician Unavailable Qiana Kinney Attending Clinician [phone] Elliot Fletcher Attending Clinician [phone] ELLIOT FRASER Attending Clinician Unavailable Amber Cardozo NP Attending Clinician [phone] Payers Payer Name Policy Type Policy Number Effective Date Expirati on Date Source MEDICAID PENDING PENDING 2021 00:00:00 Problems Condition Name Condition Details Condition Category Status Onset Date Resolution Date Last Treatment Date Treating Clinician Comments Source No known active problems No known active problems Disease [facility] Allergies, Adverse Reactions, Alerts Allergy Name Allergy Type Status Severity Reaction(s) Onset Date Inactive Date Treating Clinician Comments Source NO KNOWN ALLERGIE S Drug Class Active [facility] Social History Social Habit Start Date Stop Date Quantity Comments Source History of tobacco use Cigarette Smoker [facility] Exposure to SARS-CoV-2 (event) 2022-08-31 00:00:00 2022-09-10 12:55:00 Not sure [facility] Cigarettes smoked current (pack per day) - Reported 2017-07-12 00:00:00 2017-07-12 00:00:00 [facility] Tobacco use and exposure 2017-07-12 00:00:00 2017-07-12 00:00:00 Smokeless tobacco non-user [facility] Sex Assigned At 1995 00:00:00 1995 00:00:00 [facility] Smoking Status Start Date Stop Date Source Smokes tobacco daily 2017-07-12 00:00:00 [facility] Medications Ordered Medication Name Filled Medication Name Start Date Stop Date Current Medication? Ordering Clinician Indication Dosage Frequency Signature (SIG) Comments Components Source Bactrim DS 800 mg-160 mg tablet 10-03 00:00: 00 Yes 1mg Mariusz Dietrich fluconazole 150 mg tablet 10-03 00:00: 00 Yes 1mg Mariusz Dietrich valacyclovi r 1 gram tablet 2023-08 00:00: 00 Yes 1gram Mariusz Dietrich valacyclovi r 1 gram tablet 05-04 00:00: [...] 1 dose, On Tue09/10/22 at 1330, VIVIEN [facility] hydrOXYzine (VISTARIL) 25 mg capsule 3-0 -13 00:00: 00 Yes [id number] 25mg Take 1 capsule by mouth 2 (two) times daily as needed for Anxiety. [facility] TAKE 1 TABLET BY MOUTH TWICE DAILY NEEDED 3-0 1-06 00:00: 00 Yes Mariusz F Karlo Dose Unknown 2022-0 6-02 00:00: 00 Yes Mariusz F Karlo Dose Unknown 2022-0 6-02 00:00: 00 Yes Mariusz F Karlo Dose Unknown 2022-0 6-02 00:00: 00 No Dose Unknown 2022-0 6-02 00:00: 00 No Dose Unknown 2022-0 4-17 00:00: 00 Yes Mariusz F Karlo Dose Unknown 2022-0 4-17 00:00: 00 Yes Mariusz F Karlo Dose Unknown 2022-0 4-17 00:00: 00 No Dose Unknown 2022-0 4-17 00:00: 00 No Dose Unknown 2022-0 3-12 00:00: 00 Yes Mariusz F Karlo Dose Unknown 2022-0 3-12 00:00: 00 Yes Mariusz F Karlo Dose Unknown 2022-0 3-12 00:00: 00 No Dose Unknown 2022-0 3-12 00:00: 00 No Dose Unknown 2022-0 3-11 00:00: 00 Yes Mariusz F Karlo Dose Unknown 2022-0 3-11 00:00: 00 Yes Mariusz F Karlo Dose Unknown 2022-0 3-11 00:00: 00 No Dose Unknown 2022-0 3-11 00:00: 00 No Dose Unknown 2022-0 3-10 00:00: 00 Yes Mariusz F Karlo Dose Unknown 2022-0 3-10 00:00: 00 Yes Mariusz F Karlo Dose Unknown 2022-0 3-10 00:00: 00 No Dose Unknown 2022-0 3-10 00:00: 00 No Dose Unknown 2022-0 3-09 00:00: 00 Yes Mariusz F Karlo Dose Unknown 2022-0 3-09 00:00: 00 Yes Mariusz F Karlo Dose Unknown 2022-0 3-09 00:00: 00 No Dose Unknown 11-04 00:00: 00 No cefTRIAXone (ROCEPHIN) injection 500 mg 2020-08 03:45: 00 08-25 02:59 :00 No 500mg 500 mg, Intramuscu lar, ONCE, 1 dose, On Tue08/24/21 at 2145, VIVIEN
Re ason for Anti-Infec tive: Documented Infection< br>Documen héctor Infection Site: Pelvic
Duration of Therapy: 7 days [facility] NaCl 0.9% (NS) bolus infusion 1,000 mL 2020-08 02:00: 00 08-25 02:45 :00 No 1000mL at 999 mL/hr, 1,000 mL, IV Infusion, ONCE, 1 dose, On Tue08/24/21 at 2000, VIVIEN [facility] doxycycline hyclate 100 mg capsule 2020-08 00:00: 00 09-01 05:59 :00 No [id number] 100mg Take 1 capsule by mouth 2 (two) times daily for 7 days. [facility] traMADoL (ULTRAM) tablet 50 mg 03-26 22:15: 00 03-26 21:15 :00 No 50mg 50 mg, Oral, ONCE, 1 dose, Nadia 03/26/21 at 1715, Routine [facility] traMADoL 50 mg tablet 03-26 00:00: 00 Yes [id number] 50mg Take 1 tablet by mouth every 6 (six) hours as needed for Pain (scale 7-10). Indication s: acute pain [facility] clindamycin 150 mg capsule 03-26 00:00: 00 04-06 04:59 :00 No [id number] 450mg Take 3 capsules by mouth 3 (three) times daily for 10 days. [facility] dicyclomine (BENTYL) injection 20 mg 12-10 13:00: 00 Yes 20mg 20 mg, Intramuscu lar, QID, First dose on Tue12/10/20 at 0800, Until Discontinu ed, Routine [facility] ketorolac (TORADOL) injection 30 mg 12-10 04:45: 00 12-10 03:51 :00 No 30mg 30 mg, Slow IV Push, ONCE, 1 dose, Tu12/09/20 at 2345, Routine
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 [facility] indomethaci n 50 mg capsule 12-10 00:00: 00 12-18 04:59 :00 No [id number] 50mg Take 1 capsule by mouth 2 (two) times daily with meals for 7 days. [facility] Flonase Allergy Relief 50 mcg/actuati on nasal spray,suspe nsion 10-31 00:00: 00 No 12mcg/a ctuatio carlo Bromfed DM 2 mg-30 mg-10 mg/5 mL oral syrup 10-31 00:00: 00 No 75mg/5 mL Flonase Allergy Relief 50 mcg/actuati on nasal spray,suspe nsion 10-31 00:00: 00 Yes 12mcg/a ctuatio carlo Sosafed DM 2 mg-30 mg-10 mg/5 mL oral syrup 10-31 00:00: 00 Yes 75mg/5 mL Mariusz Dietrich HYDROcodone -acetaminop hen (NORCO 5) 5-325 mg tablet 1 tablet 2019-08 22:00: 00 06-16 21:06 :00 No 1{tbl} 1 tablet, Oral, ONCE, 1 dose, Tue06/16/20 at 1700, VIVIEN [facility] ketorolac (TORADOL) injection 60 mg 2019-08 22:00: 00 06-16 21:07 :00 No 60mg 60 mg, Intramuscu lar, ONCE, 1 dose, Tue06/16/20 at 1700, VIVIEN
Fa culty member approving Restricted medication : EMERGENCY ROOM, [facility] penicillin v potassium 500 mg tablet 2019-08 00:00: 00 06-24 04:59 :00 No [id number] 500mg Take 1 tablet by mouth 4 (four) times daily for 7 days. [facility] acetaminoph en-codeine 300-30 mg tablet 2019-08 00:00: 00 06-24 04:59 :00 No [id number] 1{tbl} Take 1 tablet by mouth every 6 (six) hours as needed for Pain (scale 7-10) for up to 7 days. Indication s: acute pain [facility] codeine-gua ifenesin 10-100 mg/5 mL solution 2016-08 00:00: 00 03-26 00:00 :00 No 5mL Take 5 mL by mouth every 6 (six) hours as needed for Cough. [facility] ondansetron 4 mg disintegrat ing tablet 2016-08 00:00: 00 03-26 00:00 :00 No 4mg Take 1 tablet by mouth every 8 (eight) hours as needed for Nausea and Vomiting (N/V). [facility] ibuprofen 800 mg tablet 12-29 00:00: 00 No 1mg ibuprofen 800 mg tablet 12-29 00:00: 00 Yes 1mg Mariusz Dietrich Immunizations Ordered Immunization Name Filled Immunization Name Date Status Comments Source SARS-COV-2 COVID-19 PFIZER VACCINE 2021-01-17 00:00:00 Completed [facility] SARS-COV-2 COVID-19 PFIZER VACCINE 2021-01-17 00:00:00 Completed [facility] SARS-COV-2 COVID-19 PFIZER VACCINE 2021-01-17 00:00:00 Completed [facility] SARS-COV-2 COVID-19 PFIZER VACCINE 2020-12-20 00:00:00 Completed [facility] SARS-COV-2 COVID-19 PFIZER VACCINE 2020-12-20 00:00:00 Completed [facility] SARS-COV-2 COVID-19 PFIZER VACCINE 2020-12-20 00:00:00 Completed [facility] Influenza, seasonal, inj 2017-08-24 00:00:00 Completed Influenza, seasonal, inj Influenza, seasonal, inj 2017-08-24 00:00:00 Completed Mariusz Dietrich Hep A-Hep B 2017-04-06 00:00:00 Completed Hep A-Hep B Hep A-Hep B 2017-04-06 00:00:00 Completed Mariusz Dietrich Vital Signs Vital Name Observation Time Observation Value Comments S ource Systolic blood pressure 2022-09-10 18:57:00 180 mm[Hg] [facility] Diastolic blood pressure 2022-09-10 18:57:00 115 mm[Hg] [facility] Heart rate 2022-09-10 18:57:00 90 /min [facility] Body temperature 2022-09-10 18:57:00 36.83 Ariane [facility] Respiratory rate 2022-09-10 18:57:00 20 /min [facility] Body height 2022-09-10 18:57:00 157.5 cm [facility] Body weight 2022-09-10 18:57:00 79.379 kg [facility] BMI 2022-09-10 18:57:00 32.01 kg/m2 [facility] Oxygen saturation in Arterial blood by Pulse oximetry 2022-09-10 18:57:00 99 /min [facility] Systolic blood pressure 2021-08-25 02:00:00 120 mm[Hg] [facility] Diastolic blood pressure 2021-08-25 02:00:00 82 mm[Hg] [facility] Heart rate 2021-08-25 02:00:00 82 /min [facility] Respiratory rate 2021-08-25 02:00:00 15 /min [facility] Oxygen saturation in Arterial blood by Pulse oximetry 2021-08-25 02:00:00 100 /min [facility] Body temperature 2021-08-25 00:45:00 37.17 Ariane [facility] Body weight 2021-08-25 00:45:00 86.183 kg [facility] BMI 2021-08-25 00:45:00 34.75 kg/m2 [facility] Systolic blood pressure 2021 20:13:00 108 mm[Hg] [facility] Diastolic blood pressure 2021 20:13:00 86 mm[Hg] [facility] Heart rate 2021 20:13:00 90 /min [facility] Body temperature 2021 20:13:00 37.5 Ariane [facility] Respiratory rate 2021 20:13:00 18 /min [facility] Body height 2021 20:13:00 157.5 cm [facility] Body weight 2021 20:13:00 88.905 kg [facility] BMI 2021 20:13:00 35.85 kg/m2 [facility] Oxygen saturation in Arterial blood by Pulse oximetry 2021 20:13:00 100 /min [facility] Systolic blood pressure 2020-12-10 00:00:00 120 mm[Hg] [facility] Diastolic blood pressure 2020-12-10 00:00:00 74 mm[Hg] [facility] Heart rate 2020-12-10 00:00:00 71 /min [facility] Body temperature 2020-12-10 00:00:00 37.5 Ariane [facility] Respiratory rate 2020-12-10 00:00:00 18 /min [facility] Body weight 2020-12-10 00:00:00 86.183 kg [facility] BMI 2020-12-10 00:00:00 34.75 kg/m2 [facility] Oxygen saturation in Arterial blood by Pulse oximetry 2020-12-10 00:00:00 97 /min [facility] Systolic blood pressure 2020-12-10 00:00:00 120 mm[Hg] [facility] Diastolic blood pressure 2020-12-10 00:00:00 74 mm[Hg] [facility] Heart rate 2020-12-10 00:00:00 71 /min [facility] Body temperature 2020-12-10 00:00:00 37.5 Ariane [facility] Respiratory rate 2020-12-10 00:00:00 18 /min [facility] Body weight 2020-12-10 00:00:00 86.183 kg [facility] BMI 2020-12-10 00:00:00 34.75 kg/m2 [facility] Oxygen saturation in Arterial blood by Pulse oximetry 2020-12-10 00:00:00 97 /min [facility] Systolic blood pressure 2020-06-16 20:21:00 132 mm[Hg] [facility] Diastolic blood pressure 2020-06-16 20:21:00 74 mm[Hg] [facility] Heart rate 2020-06-16 20:21:00 82 /min [facility] Body temperature 2020-06-16 20:21:00 36.72 Ariane [facility] Respiratory rate 2020-06-16 20:21:00 20 /min [facility] Body height 2020-06-16 20:21:00 157.5 cm [facility] Body weight 2020-06-16 20:21:00 86.183 kg [facility] BMI 2020-06-16 20:21:00 34.75 kg/m2 [facility] Oxygen saturation in Arterial blood by Pulse oximetry 2020-06-16 20:21:00 100 /min [facility] Systolic blood pressure 2020-06-16 20:21:00 132 mm[Hg] [facility] Diastolic blood pressure 2020-06-16 20:21:00 74 mm[Hg] [facility] Heart rate 2020-06-16 20:21:00 82 /min [facility] Body temperature 2020-06-16 20:21:00 36.72 Ariane [facility] Respiratory rate 2020-06-16 20:21:00 20 /min [facility] Body height 2020-06-16 20:21:00 157.5 cm [facility] Body weight 2020-06-16 20:21:00 86.183 kg [facility] BMI 2020-06-16 20:21:00 34.75 kg/m2 [facility] Oxygen saturation in Arterial blood by Pulse oximetry 2020-06-16 20:21:00 100 /min [facility] BP Systolic 2024-10-03 15:28:00 102 mm[Hg] Step hen F Karlo BP Diastolic 2024-10-03 15:28:00 70 mm[Hg] Clay phen F Karlo Weight Measured 2024-10-03 15:28:00 152.00 pounds Mariusz F Karlo Height Measured 2024-10-03 15:28:00 62.00 inches Mariusz F Karlo Body Temperature 2024-10-03 15:28:00 97.50 degrees Mariusz F Karlo Heart Rate 2024-10-03 15:28:00 68.00 /min Emeli en F Karlo Respiratory Rate 2024-10-03 15:28:00 18.00 /min Mariusz F Karlo BP Systolic 2024-07-27 16:50:00 130 mm[Hg] Step hen F Karlo BP Diastolic 2024-07-27 16:50:00 90 mm[Hg] Clay phen F Karlo Weight Measured 2024-07-27 16:50:00 162.40 pounds Mariusz F Karlo Height Measured 2024-07-27 16:50:00 62.00 inches Mariusz Dietrich Body Temperature 2024-07-27 16:50:00 98.30 degrees Mariusz F Karlo Heart Rate 2024-07-27 16:50:00 109.00 /min Step hen F Karlo Respiratory Rate 2024-07-27 16:50:00 18.00 /min Mariusz F Karlo BP Systolic 2024-05-25 11:34:00 135 mm[Hg] Step hen F Karlo BP Diastolic 2024-05-25 11:34:00 110 mm[Hg] Clay phen F Karlo Weight Measured 2024-05-25 11:34:00 168.00 pounds Mariusz F Karlo Height Measured 2024-05-25 11:34:00 62.00 inches Mariuszkrystal Dietrich Body Temperature 2024-05-25 11:34:00 97.90 degrees Mariusz [...] Source POCT TEST 2022-09-10 19:42:00 Sree Lopez [facility] URINE DRUG (IMMUNOASSAY) - COMPREHENSIVE DRUG SCREEN 2022-09-10 19:41:00 Sree Lopez [facility] URINALYSIS 2022-09-10 19:41:00 Sree Lopez [facility] CONSENT/REFUSAL FOR DIAGNOSIS AND TREATMENT 2022-09-10 18:46:57 Doctor Unassigned, [place] [facility] POCT TEST 2021-08-25 01:28:00 Aviva Valdez [facility] BASIC METABOLIC PANEL (NA, K, CL, CO2, GLUCOSE, BUN, CREATININE, CA) 2021-08-25 01:26:00 Qiana Valdez [facility] CBC WITH DIFF 2021-08-25 01:26:00 Qiana Valdez [facility] URINALYSIS 2021-08-25 01:26:00 Qiana Valdez [facility] CONSENT/REFUSAL FOR DIAGNOSIS AND TREATMENT 2021-08-25 00:39:27 Doctor Unassigned, [place] [facility] CONSENT/REFUSAL FOR DIAGNOSIS AND TREATMENT 2021 20:08:24 Doctor Unassigned, [place] [facility] CT ABDOMEN PELVIS WO CONTRAST 2020-12-10 04:09:17 Amber Cardozo [facility] URINE DRUG (IMMUNOASSAY) - 4 ER PANEL 2020-12-10 03:57:00 Amber Cardozo [facility] POCT TEST 2020-12-10 01:46:00 Johnnie Olivarez [facility] LIPASE 2020-12-10 01:44:00 Johnnie Olivarez [facility] COMP. METABOLIC PANEL (81018) 2020-12-10 01:44:00 Johnnie Olivarez [facility] CBC WITH DIFF 2020-12-10 01:44:00 Johnnie Olivarez [facility] URINALYSIS 2020-12-10 01:44:00 Johnnie Olivarez [facility] NOTICE OF PRIVACY PRACTICES 2020-12-09 23:56:35 Doctor Unassigned, [place] [facility] CONSENT/REFUSAL FOR DIAGNOSIS AND TREATMENT 2020-12-09 23:55:46 Doctor Unassigned, [place] [facility] CONSENT/REFUSAL FOR DIAGNOSIS AND TREATMENT 2020-06-16 20:19:26 Doctor Unassigned, [place] [facility] Plan of Care Planned Activity Planned Date Details Comments Source Goal Plan of Care Note [code = 15048-0] Goal Plan of Care Note [code = 10758-8] Goal Plan of Care Note [code = 91123-6] Goal Plan of Care Note [code = 42704-0] Goal Plan of Care Note [code = 20870-5] Goal Plan of Care Note [code = 98705-4] Goal Plan of Care Note [code = 34189-2] Goal Plan of Care Note [code = 67084-8] Goal Plan of Care Note [code = 45007-3] Goal Plan of Care Note [code = 67833-3] Goal Plan of Care Note [code = 45829-8] Goal Plan of Care Note [code = 96786-5] Goal Plan of Care Note [code = 70337-8] Goal Plan of Care Note [code = 03764-1] Goal Plan of Care Note [code = 32826-9] Goal Plan of Care Note [code = 66349-1] Goal Plan of Care Note [code = 66467-2] Goal Plan of Care Note [code = 68236-9] Goal Plan of Care Note [code = 79833-3] Goal Plan of Care Note [code = 04844-0] Goal Plan of Care Note [code = 72486-8] Goal Plan of Care Note [code = 90020-5] Goal Plan of Care Note [code = 51087-7] Goal Plan of Care Note [code = 91726-5] Goal Plan of Care Note [code = 52276-4] Goal Plan of Care Note [code = 00482-7] Encounters Start Date/Time End Date/Time Encounter Type Admission Type Attending [facility] Facility Care Department Encounter ID Source 2022-09-11 22:37:13 Outpatient [facility] [id number] [facility] 2024-11-28 13:00:18 2024-11-28 13:00:18 Outpatient [facility] [id number] Mariusz F Akrlo 2024-11-21 13:01:55 2024-11-21 13:01:55 Outpatient [facility] [id number] Mariusz Adams Karlo 2024-11-14 10:43:16 2024-11-14 10:43:16 Outpatient [facility] [id number] Mariusz Adams Karol 2024-11-01 10:56:25 2024-11-01 10:56:25 Outpatient [facility] [id number] Mariusz Adams Karlo 2024-10-03 00:00:00 2024-10-03 00:00:00 Outpatient Visit [facility] [id number] Mariusz Adams Akrlo 2024-08-02 09:47:29 2024-08-02 09:47:29 Outpatient [facility] [id number] Mariusz Angie Karlo 2024-07-28 09:12:19 2024-07-28 09:12:19 Outpatient [facility] [id number] Mariusz Dietrich 2024-07-27 16:34:15 2024-07-27 16:34:15 Outpatient [facility] [id number] Mariusz Dietrich 2024-07-27 00:00:00 2024-07-27 00:00:00 Outpatient Visit [facility] [id number] Mariusz Dietrich 2024-05-25 11:29:14 2024-05-25 11:29:14 Outpatient [facility] [id number] Mariusz Dietrich 2024-05-25 00:00:00 2024-05-25 00:00:00 Outpatient Visit [facility] [id number] Mariusz Dietrich 2024-05-07 16:45:19 2024-05-07 16:45:19 Outpatient [facility] [id number] Mariusz Dietrich 2024-05-07 00:00:00 2024-05-07 00:00:00 Outpatient Visit [facility] [id number] Mariusz Dietrich 2024-05-01 09:03:27 2024-05-01 09:03:27 Outpatient [facility] [id number] Mariusz Dietrich 2024-05-01 00:00:00 2024-05-01 00:00:00 Outpatient Visit [facility] [id number] Mariusz Dietrich 2024-04-30 13:03:22 2024-04-30 13:03:22 Outpatient [facility] [id number] Mariusz Dietrich 2023-03-15 08:16:23 2023-03-15 08:16:23 Outpatient [facility] [id number] Mariusz Dietrich 2022-09-10 12:58:00 2022-09-10 16:23:00 Emergency X SREE LOPEZ [facility] [id number] [facility] 2022-09-10 12:58:00 2022-09-10 16:23:00 Emergency Sree Lopez [facility] [id number] [facility] 2022-04-02 00:00:00 2022-04-02 00:00:00 Outpatient Visit [id number] 2021-08-24 18:46:00 2021-08-24 21:11:00 Emergency X QIANA VALDEZ [facility] ERT [id number] [facility] 2021-08-24 18:46:00 2021-08-24 21:11:00 Emergency Qiana Valdez [facility] [id number] [facility] 2021 15:14:00 2021 16:17:00 Emergency Elliot Fraser Keisha [facility] [id number] [facility] 2021 15:08:00 2021 15:08:00 Emergency X EVELIO ELLIOT [facility] ERT [id number] [facility] 2020-12-09 19:02:00 2020-12-10 01:46:00 Emergency Amber Cardozo [facility] [id number] 2020-12-09 19:02:00 2020-12-10 01:46:00 Emergency Amber Cardozo [facility] [id number] [facility] 2020-12-09 18:54:00 2020-12-09 18:54:00 Emergency X [facility] ERT [id number] [facility] 2020-06-16 15:24:00 2020-06-16 17:00:00 Emergency [facility] [id number] 2020-06-16 15:24:00 2020-06-16 17:00:00 Emergency [facility] [id number] [facility] 2020-06-16 15:18:00 2020-06-16 15:18:00 Emergency X [facility] ERT [id number] [facility] 2020-01-27 14:14:00 2020-01-27 14:14:00 Emergency X [facility] ERT [id number] [facility] Results Test Description Test Time Test Comments Results Result Co mments Source HIV 1/2 4TH GEN, RFLX [id number] 03:48:47* Test Item Value Reference Range Interpretation Comme [facility] HIV 1/2 4TH GEN, RFLX CONF ( test code = 3514) NON-REACTIVE NON-REACTIVE HEPATITIS PANEL, [id number] 03:48:47* Test Item Value Reference Range Interpretation Comme nts HEPATITIS A IgM (test code = 90454) NON-REACTIVE NON-REACTIVE HEPATITIS B CORE IgM (test code = 4644) NON-REACTIVE NON-REACTIVE HEPATITIS B SURF AG (test code = 2739) NON-REACTIVE NON-REACTIVE HEPATITIS C ANTIBODY (test code = 4675) NON-REACTIVE NON-REACTIVE INTERPRETATION HEPATITIS A: (test code = 2552) (NOTE) Hepatitis A serology shows no evidence of acute hepatitis A. INTERPRETATION HEPATITIS B: (test code = 42807) (NOTE) Hepatitis B serology shows no evidence of acute hepatitis B andno indication of exposure to hepatitis B virus in the previous jie eight months. INTERPRETATION HEPATITIS C: (test code = 74323) (NOTE) Hepatitis C serology shows no evidence of exposure to hepatitisC virus at this time. It can take up to 12 months after exposure tothe hepatitis C virus for antibodies to become detectable in the blood in certain patients. RPR REFLEX TO T. PALLIDUM - [id number] 03:22:01* Test Item Value Reference Range Interpretation Comme nts RPR (test code = 30786) NON-REACTIVE NON-REACTIVE RPR TITER (test code = 3500) NOT INDIC. TITER NOT INDIC. RPR REFLEX TO T. PALLIDUM - [id number] 00:00:00* Test Item Value Reference Range Interpretation Comme nts RPR (test code = 11287) NON-REACTIVE RPR TITER (test code = 3500) NOT INDIC. TITER Mariusz Adams AustinHIV 1/2 4TH GEN, RFLX [id number] 00:00:00* Test Item Value Reference Range Interpretation Comme nts HIV 1/2 4TH GEN, RFLX CONF ( test code = 3514) NON-REACTIVE Mariusz DietrichACUTE HEPATITIS [id number] 00:00:00* Test Item Value Reference Range Interpretation Comme nts HEPATITIS A IgM (test code = 15157) NON-REACTIVE HEPATITIS B CORE IgM (test c ode = 4644) NON-REACTIVE HEPATITIS B SURF AG (test co de = 2739) NON-REACTIVE HEPATITIS C ANTIBODY (test c ode = 4675) NON-REACTIVE INTERPRETATION HEPATITIS A: (test code = 2552) (NOTE) INTERPRETATION HEPATITIS B: (test code = 64636) (NOTE) INTERPRETATION HEPATITIS C: (test code = 18432) (NOTE) Mariusz DietrichCT/NG, NAAT, [id number] 00:00:00* Test Item Value Reference Range Interpretation Comme nts CHLAMYDIA, NAAT, URINE (test code = 31607) NEGATIVE GONORRHEA, NAAT, URINE (test code = 07956) NEGATIVE Mariusz Adams AustinHIV 1/2 4TH GEN, RFLX [id number] 04:44:57* Test Item Value Reference Range Interpretation Comme nts HIV 1/2 4TH GEN, RFLX CONF ( test code = 3514) NON-REACTIVE NON-REACTIVE HEPATITIS PANEL, [id number] 04:44:57* Test Item Value Reference Range Interpretation Comme nts HEPATITIS A IgM (test code = 41450) NON-REACTIVE NON-REACTIVE HEPATITIS B CORE IgM (test code = 4644) NON-REACTIVE NON-REACTIVE HEPATITIS B SURF AG (test code = 2739) NON-REACTIVE NON-REACTIVE HEPATITIS C ANTIBODY (test code = 4675) NON-REACTIVE NON-REACTIVE INTERPRETATION HEPATITIS A: (test code = 2552) (NOTE) Hepatitis A sero logy shows no evidence of acute hepatitis A. INTERPRETATION HEPATITIS B: (test code = 03546) (NOTE) Hepatitis B sero logy shows no evidence of acute hepatitis B andno indication of exposure to hepatitis B virus in the previous jie eight months. INTERPRETATION HEPATITIS C: (test code = 92471) (NOTE) Hepatitis C sero logy shows no evidence of exposure to hepatitisC virus at this time. It can take up to 12 months after exposure tothe hepatitis C virus for antibodies to become detectable in the blood in certain patients. UNLESS OTHERWISE INDICATED, ALL TESTING PERFORMED AT [facility] [address] [place] [address] CIGAR BINDER: ALONSO SOTO M.D. CLIA NUMBER [id number] [facility] [place] [place]. [id number] RPR REFLEX TO T. PALLIDUM - [id number] 00:40:59* Test Item Value Reference Range Interpretation Comme nts RPR (test code = 67554) NON-REACTIVE NON-REACTIVE RPR TITER (test code = 3500) NOT INDIC. TITER NOT INDIC. RPR REFLEX TO T. PALLIDUM - [id number] 00:00:00* Test Item Value Reference Range Interpretation Comme nts RPR (test code = 46556) NON-REACTIVE RPR TITER (test code = 3500) NOT INDIC. TITER Mariusz DietrichHIV 1/2 4TH GEN, RFLX [id number] 00:00:00* Test Item Value Reference Range Interpretation Comme nts HIV 1/2 4TH GEN, RFLX CONF ( test code = 3514) NON-REACTIVE Mariusz DietrichACUTE HEPATITIS [id number] 00:00:00* Test Item Value Reference Range Interpretation Comme nts HEPATITIS A IgM (test code = 25281) NON-REACTIVE HEPATITIS B CORE IgM (test c ode = 4644) NON-REACTIVE HEPATITIS B SURF AG (test co de = 2739) NON-REACTIVE HEPATITIS C ANTIBODY (test c ode = 4675) NON-REACTIVE INTERPRETATION HEPATITIS A: (test code = 2552) (NOTE) INTERPRETATION HEPATITIS B: (test code = 08514) (NOTE) INTERPRETATION HEPATITIS C: (test code = 41673) (NOTE) Mariusz DietrichRPR REFLEX TO T. PALLIDUM - [id number] 00:00:00* Test Item Value Reference Range Interpretation Comme nts RPR (test code = 89137) NON-REACTIVE RPR TITER (test code = 3500) NOT INDIC. TITER Mariusz DietrichHIV 1/2 4TH GEN, RFLX [id number] 00:00:00* Test Item Value Reference Range Interpretation Comme nts HIV 1/2 4TH GEN, RFLX CONF ( test code = 3514) NON-REACTIVE Mariusz DietrichACUTE HEPATITIS [id number] 00:00:00* Test Item Value Reference Range Interpretation Comme nts HEPATITIS A IgM (test code = 03894) NON-REACTIVE HEPATITIS B CORE IgM (test c ode = 4644) NON-REACTIVE HEPATITIS B SURF AG (test co de = 2739) NON-REACTIVE HEPATITIS C ANTIBODY (test c ode = 4675) NON-REACTIVE INTERPRETATION HEPATITIS A: (test code = 2552) (NOTE) INTERPRETATION HEPATITIS B: (test code = 97991) (NOTE) INTERPRETATION HEPATITIS C: (test code = 96419) (NOTE) Mariusz DietrichCT/NG, NAAT, [id number] 14:03:37* Test Item Value Reference Range Interpretation Comme nts CHLAMYDIA, NAAT, URINE (test code = 13211) NEGATIVE NEGATIVE Testing is perfo rmed with Ronit JAGDEEP 6800/8800 systems usingreal-time polymerase chain reaction (PCR) method. A negative result does not exclude low level infection, specimensampling error, or collection error. GONORRHEA, NAAT, URINE (test code = 96230) NEGATIVE NEGATIVE Testing is perfo rmed with Ronit JAGDEEP 6800/8800 systems usingreal-time polymerase chain reaction (PCR) method. A negative result does not exclude low level infection, specimensampling error, or collection error. CT/NG, NAAT, [id number] 00:00:00* Test Item Value Reference Range Interpretation Comme nts CHLAMYDIA, NAAT, URINE (test code = 08267) NEGATIVE GONORRHEA, NAAT, URINE (test code = 38835) NEGATIVE Mariusz F AustinCT/NG, NAAT, [id number] 00:00:00* Test Item Value Reference Range Interpretation Comme nts CHLAMYDIA, NAAT, URINE (test code = 66800) NEGATIVE GONORRHEA, NAAT, URINE (test code = 39812) NEGATIVE Mariusz F AustinCT/NG, NAAT, [id number] 00:00:00* Test Item Value Reference Range Interpretation Comme nts CHLAMYDIA, NAAT, URINE (test code = 66619) NEGATIVE GONORRHEA, NAAT, URINE (test code = 83455) NEGATIVE Mariusz F AustinCT/NG, NAAT, [id number] 00:00:00* Test Item Value Reference Range Interpretation Comme nts CHLAMYDIA, NAAT, URINE (test code = 50978) NEGATIVE GONORRHEA, NAAT, URINE (test code = 90383) NEGATIVE Mariusz F AustinCT/NG, NAAT, [id number] 00:00:00* Test Item Value Reference Range Interpretation Comme nts CHLAMYDIA, NAAT, URINE (test code = 09218) NEGATIVE GONORRHEA, NAAT, URINE (test code = 57695) NEGATIVE Mariusz F AustinCT/NG, NAAT, [id number] 23:09:43* Test Item Value Reference Range Interpretation Comme nts CHLAMYDIA, NAAT, URINE (test code = 00863) NEGATIVE NEGATIVE Testing is perfo rmed with Ronit JAGDEEP 6800/8800 systems usingreal-time polymerase chain reaction (PCR) method. A negative result does not exclude low level infection, specimensampling error, or collection error. GONORRHEA, NAAT, URINE (test code = 57925) NEGATIVE NEGATIVE Testing is perfo rmed with Ronit JAGDEEP 6800/8800 systems usingreal-time polymerase chain reaction (PCR) method. A negative result does not exclude low level infection, specimensampling error, or collection error. CT/NG, NAAT, [id number] 00:00:00* Test Item Value Reference Range Interpretation Comme nts CHLAMYDIA, NAAT, URINE (test code = 84233) NEGATIVE GONORRHEA, NAAT, URINE (test code = 50864) NEGATIVE Mariusz Angie AustinCT/NG, NAAT, [id number] 00:00:00* Test Item Value Reference Range Interpretation Comme nts CHLAMYDIA, NAAT, URINE (test code = 37228) NEGATIVE GONORRHEA, NAAT, URINE (test code = 77098) NEGATIVE Mariusz F AustinCT/NG, NAAT, [id number] 00:00:00* Test Item Value Reference Range Interpretation Comme nts CHLAMYDIA, NAAT, URINE (test code = 50757) NEGATIVE GONORRHEA, NAAT, URINE (test code = 46625) NEGATIVE Mariusz F AustinCT/NG, NAAT, [id number] 00:00:00* Test Item Value Reference Range Interpretation Comme nts CHLAMYDIA, NAAT, URINE (test code = 36849) NEGATIVE GONORRHEA, NAAT, URINE (test code = 40864) NEGATIVE Mariusz DietrichHERPES SIMPLEX AB, [id number] 18:44:31* Test Item Value Reference Range Interpretation Comme nts HERPES SIMPLEX AB, IgM (test code = 52915) 1.97 INDEX SEE BELOW H IMPORTANT NOTE: HSV IgM ASSAYS ARE NOT TYPE-SPECIFIC. THE BIOLOGICALIgM RESPONSE WITH PRIMARY INFECTIONS IS VARIABLE AND MAY BEUNDETECTABLE; WITH RECURRENT INFECTIONS IgM MAY OR MAY NOT BEDETECTED. FALSE POSITIVE RESULTS UNRELATED TO HSV INFECTION CAN OCCURWITH HSV IgM ASSAYS. ALL RESULTS SHOULD BE REVIEWED IN CLINICALCONTEXT, AND COMPARISON TO ACUTE OR CONVALESCENT TYPE-SPECIFIC [id number] HSV2 IgG ASSAYS SHOULD BE CONSIDERED. INTERPRETATION UNITS RANGE ----- ----- NEGATIVE INDEX <=0.89 EQUIVOCAL INDEX 0.90-1.09 POSITIVE INDEX >=1.10 HIV 1/2 4TH GEN, RFLX [id number] 05:46:11* Test Item Value Reference Range Interpretation Comme nts HIV 1/2 4TH GEN, RFLX CONF ( test code = 3514) NON-REACTIVE NON-REACTIVE HEPATITIS A [id number] 05:46:11* Test Item Value Reference Range Interpretation Comme nts HEPATITIS A IgM (test code = 2728) NON-REACTIVE NON-REACTIVE UNLESS OTHERW ISE INDICATED, ALL TESTING PERFORMED AT [facility] [address] [place] [address] CIGAR BINDER: ALONSO SOTO M.D. [place] NUMBER [id number] [facility] [place] [place]. [id number] HEPATITIS PANEL, [id number] 05:46:11* Test Item Value Reference Range Interpretation [...] infection. INTERPRETATION HEPATITIS B: (test code = 14434) (NOTE) Hepatitis B sero logy consistent with immunity to hepatitis Bfrom previous hepatitis B vaccination. INTERPRETATION HEPATITIS C: (test code = 27015) (NOTE) Hepatitis C sero logy shows no evidence of exposure to hepatitisC virus at this time. It can take up to 12 months after exposure tothe hepatitis C virus for antibodies to become detectable in the blood in certain patients. HERPES SIMPLEX 1/2 AB, IgG [id number] 05:46:11* Test Item Value Reference Range Interpretation Comme nts HERPES SIMPLEX 1 AB, IgG (test code = 52685) 0.020 INDEX SEE BELOW INTERPRETATION U NITS RANGE ----- ----- NON-REACTIVE INDEX <1.000 REACTIVE INDEX >=1.000 HERPES SIMPLEX 2 AB, IgG (test code = 86490) 419.000 INDEX SEE BELOW H INTERPRETATION U NITS RANGE ----- ----- NON-REACTIVE INDEX <1.000 REACTIVE INDEX >=1.000 [id number] 04:26:03* Test Item Value Reference Range Interpretation [...] (NOTE) INTERPRETATION HEPATITIS B: (test code = 60897) (NOTE) INTERPRETATION HEPATITIS C: (test code = 44121) (NOTE) Mariusz DietrichHERPES SIMPLEX AB, [id number] 00:00:00* Test Item Value Reference Range Interpretation Comme nts HERPES SIMPLEX AB, IgM (test code = 30168) 1.97 INDEX Mariusz DietrichHERPES SIMPLEX 1/2 ANTIBODY, [id number] 00:00:00* Test Item Value Reference Range Interpretation Comme nts HERPES SIMPLEX 1 AB, IgG (te st code = 02806) 0.020 INDEX HERPES SIMPLEX 2 AB, IgG (te st code = 97898) 419.000 INDEX Mariusz [id number] 00:00:00* Test Item Value Reference Range Interpretation Comme nts RPR RESULT (test code = 3501) NON-REACTIVE RPR TITER (test code = 3500) NOT INDIC. TITER Mariusz Adams AustinHIV 1/2 4TH GEN, RFLX [id number] 00:00:00* Test Item Value Reference Range Interpretation [...] (NOTE) INTERPRETATION HEPATITIS B: (test code = 41923) (NOTE) INTERPRETATION HEPATITIS C: (test code = 15254) (NOTE) Mariusz Adams AustinHERPES SIMPLEX AB, [id number] 00:00:00* Test Item Value Reference Range Interpretation Comme nts HERPES SIMPLEX AB, IgM (test code = 06719) 1.97 INDEX Mariusz Adams AustinHERPES SIMPLEX 1/2 ANTIBODY, [id number] 00:00:00* Test Item Value Reference Range Interpretation Comme nts HERPES SIMPLEX 1 AB, IgG (te st code = 46226) 0.020 INDEX HERPES SIMPLEX 2 AB, IgG (te st code = 40617) 419.000 INDEX Mariusz Adams [id number] 00:00:00* Test Item Value Reference Range Interpretation Comme nts RPR RESULT (test code = 3501) NON-REACTIVE RPR TITER (test code = 3500) NOT INDIC. TITER Mariusz Adams AustinHIV 1/2 4TH GEN, RFLX [id number] 00:00:00* Test Item Value Reference Range Interpretation [...] (NOTE) INTERPRETATION HEPATITIS B: (test code = 49237) (NOTE) INTERPRETATION HEPATITIS C: (test code = 49464) (NOTE) Mariusz DietrichHERPES SIMPLEX AB, [id number] 00:00:00* Test Item Value Reference Range Interpretation Comme nts HERPES SIMPLEX AB, IgM (test code = 39067) 1.97 INDEX Mariusz DietrichHERPES SIMPLEX 1/2 ANTIBODY, [id number] 00:00:00* Test Item Value Reference Range Interpretation Comme nts HERPES SIMPLEX 1 AB, IgG (te st code = 62909) 0.020 INDEX HERPES SIMPLEX 2 AB, IgG (te st code = 00262) 419.000 INDEX Mariusz Adams [id number] 00:00:00* Test Item Value Reference Range Interpretation Comme nts RPR RESULT (test code = 3501) NON-REACTIVE RPR TITER (test code = 3500) NOT INDIC. TITER Mariusz Adams AustinHIV 1/2 4TH GEN, RFLX [id number] 00:00:00* Test Item Value Reference Range Interpretation [...] (NOTE) INTERPRETATION HEPATITIS B: (test code = 14316) (NOTE) INTERPRETATION HEPATITIS C: (test code = 52403) (NOTE) Mariusz DietrichHERPES SIMPLEX AB, [id number] 00:00:00* Test Item Value Reference Range Interpretation Comme nts HERPES SIMPLEX AB, IgM (test code = 94386) 1.97 INDEX Mariusz F AustinHERPES SIMPLEX 1/2 ANTIBODY, [id number] 00:00:00* Test Item Value Reference Range Interpretation Comme nts HERPES SIMPLEX 1 AB, IgG (te st code = 19343) 0.020 INDEX HERPES SIMPLEX 2 AB, IgG (te st code = 23238) 419.000 INDEX Mariusz [id number] 00:00:00* Test Item Value Reference Range Interpretation Comme nts RPR RESULT (test code = 3501) NON-REACTIVE RPR TITER (test code = 3500) NOT INDIC. TITER Mariusz DietrichHIV 1/2 4TH GEN, RFLX [id number] 00:00:00* Test Item Value Reference Range Interpretation Comme nts HIV 1/2 4TH GEN, RFLX CONF ( test code = 3514) NON-REACTIVE Mariusz DietrichHEPATITIS A IgM [[id number] 00:00:00* Test Item Value Reference Range Interpretation Comme [facility] HEPATITIS A IgM (test code = 2728) NON-REACTIVE Mariusz DietrichPOCT [id number] 19:42:00* Test Item Value Reference Range Interpretation Comme [facility] POCT PREG (test code = 1605) negative On board controls acceptable with C Line (test code = 3574) present POCT PREG LOT # (test code = 3575) [id number] POCT PREG TEST DATE ( test code = 3576) 11-27-2023 Lab Interpretation (test cod e = 24749-5) [facility] TEST, THINPREP, [id number] 09:47:06 * Test Item Value Reference Range Interpretation Comme nts SOURCE: (test code = 8001) Cervical/Endoce rvical SLIDES: (test code = 8011) 1 LMP: (test code = 8021) 10/27/2021 SPECIMEN ADEQUACY: (test code = 27706) (NOTE) Satisfactory for evaluation. Endocervical cells/transformation zone component present. INTERPRETATION: (test code = 55747) NILM/NO EPITH. ABNORMALITY;SEE BELOW --- - NEGATIVE FOR INTRAEPITHELIAL LESION OR MALIGNANCY (NILM) ---- PROJECT MANAGER/DESIGN MANAGER : (test code = 8101) Nery Macedo LOCATION: (test code = 97277) (NOTE) Specimens proces sed and interpreted at [facility], [address] [place] [address], , CLIA: [id number] CPT: (test code = 8140) (NOTE) 17969 UNLESS OTH ERWISE INDICATED, COMPUTER AIDED AND PROJECT MANAGER/DESIGN MANAGER SCREENING PERFORMED. The Pap test is [...] TESTING PERFORMED [facility], [facility]. [address] [place] [address] CIGAR BINDER: ELIF MADISON M.D. CLIA NUMBER [id number] [facility] [place] [place]. [id number] PAP TEST, THINPREP, [id number] 00:00:00* Test Item Value Reference Range Interpretation Comme nts SOURCE: (test code = 8001) Cervical/Endocervical SLIDES: (test code = 8011) 1 LMP: (test code = 8021) 10/27/2021 SPECIMEN ADEQUACY: (test code = 52915) (NOTE) INTERPRETATION: (test code = 28095) NILM/NO EPITH. ABNORMALITY;SEE BELOW PROJECT MANAGER/DESIGN MANAGER: (test code = 8101) Nery Macedo LOCATION: (test code = 32127) (NOTE) CPT: (test code = 8140) (NOTE) Mariusz MolinaP TEST, THINPREP, [id number] 00:00:00* Test Item Value Reference Range Interpretation Comme nts SOURCE: (test code = 8001) Cervical/Endocervical SLIDES: (test code = 8011) 1 LMP: (test code = 8021) 10/27/2021 SPECIMEN ADEQUACY: (test code = 03429) (NOTE) INTERPRETATION: (test code = 31530) NILM/NO EPITH. ABNORMALITY;SEE BELOW PROJECT MANAGER/DESIGN MANAGER: (test code = 8101) [facility]: (test code = 02969) (NOTE) CPT: (test code = 8140) (NOTE) Mariusz DietrichPAP TEST, THINPREP, [id number] 00:00:00* Test Item Value Reference Range Interpretation Comme nts SOURCE: (test code = 8001) Cervical/Endocervical SLIDES: (test code = 8011) 1 LMP: (test code = 8021) 10/27/2021 SPECIMEN ADEQUACY: (test code = 41390) (NOTE) INTERPRETATION: (test code = 33343) NILM/NO EPITH. ABNORMALITY;SEE BELOW PROJECT MANAGER/DESIGN MANAGER: (test code = 8101) Nery [place] LOCATION: (test code = 20004) (NOTE) CPT: (test code = 8140) (NOTE) Mariusz DietrichPAP TEST, THINPREP, [id number] 00:00:00* Test Item Value Reference Range Interpretation Comme nts SOURCE: (test code = 8001) Cervical/Endocervical SLIDES: (test code = 8011) 1 LMP: (test code = 8021) 10/27/2021 SPECIMEN ADEQUACY: (test code = 65300) (NOTE) INTERPRETATION: (test code = 23639) NILM/NO EPITH. ABNORMALITY;SEE BELOW PROJECT MANAGER/DESIGN MANAGER: (test code = 8101) Nery [place] LOCATION: (test code = 66035) (NOTE) CPT: (test code = 8140) (NOTE) Mariusz DietrichPAP TEST, THINPREP, [id number] 00:00:00* Test Item Value Reference Range Interpretation Comme nts SOURCE: (test code = 8001) Cervical/Endocervical SLIDES: (test code = 8011) 1 LMP: (test code = 8021) 10/27/2021 SPECIMEN ADEQUACY: (test code = 11783) (NOTE) INTERPRETATION: (test code = 59645) NILM/NO EPITH. ABNORMALITY;SEE BELOW PROJECT MANAGER/DESIGN MANAGER: (test code = 8101) Nery [place] LOCATION: (test code = 29309) (NOTE) CPT: (test code = 8140) (NOTE) Mariusz [place] TEST, THINPREP, [id number] 00:00:00* Test Item Value Reference Range Interpretation Comme nts SOURCE: (test code = 8001) Cervical/Endocervical SLIDES: (test code = 8011) 1 LMP: (test code = 8021) 10/27/2021 SPECIMEN ADEQUACY: (test code = 17067) (NOTE) INTERPRETATION: (test code = 96614) NILM/NO EPITH. ABNORMALITY;SEE BELOW PROJECT MANAGER/DESIGN MANAGER: (test code = 8101) Nery Macedo LOCATION: (test code = 88830) (NOTE) CPT: (test code = 8140) (NOTE) VAGINAL PATHOGENS DNA [id number] 14:50:28* Test Item Value Reference Range Interpretation Comme nts DAMIR SPECIES (test code = 07028) NEGATIVE NEGATIVE G. VAGINALIS (test code = 50904) NEGATIVE NEGATIVE T. VAGINALIS (test code = 65527) NEGATIVE NEGATIVE UNLESS OTHERWISE INDICATED, ALL TESTING PERFORMED [facility] [address] [place] [address] CIGAR BINDER: ELIF MADISON M.D. CLIA NUMBER [id number] [facility] [place]. [id number] 06:56:09* Test Item Value Reference Range Interpretation Comme nts RPR RESULT (test code = 3501) NON-REACTIVE NON-REACTIVE RPR TITER (test code = 3500) NOT INDIC. TITER NOT INDIC. HIV 1/2 4TH GEN, RFLX [id number] 05:54:17* Test Item Value Reference Range Interpretation Comme nts HIV 1/2 4TH GEN, RFLX CONF ( test code = 3514) NON-REACTIVE NON-REACTIVE HEPATITIS PANEL, [id number] 05:54:17* Test Item Value Reference Range Interpretation Comme nts HEPATITIS A IgM (test code = 80121) NON-REACTIVE NON-REACTIVE HEPATITIS B CORE IgM (test code = 4644) NON-REACTIVE NON-REACTIVE HEPATITIS B SURF AG (test code = 2739) NON-REACTIVE NON-REACTIVE HEPATITIS C ANTIBODY (test code = 4675) NON-REACTIVE NON-REACTIVE INTERPRETATION HEPATITIS A: (test code = 2552) (NOTE) Hepatitis A serology shows no evidence of acute hepatitis A. INTERPRETATION HEPATITIS B: (test code = 00867) (NOTE) Hepatitis B serology shows no evidence of acute hepatitis B andno indication of exposure to hepatitis B virus in the previous jie eight months. INTERPRETATION HEPATITIS C: (test code = 96647) (NOTE) Hepatitis C serology shows no evidence of exposure to hepatitisC virus at this time. It can take up to 12 months after exposure tothe hepatitis C virus for antibodies to become detectable in the blood in certain patients. HIV AB/AG COMBO RFLX [id number] 00:00:00* Test Item Value Reference Range Interpretation Comme nts HIV 1/2 4TH GEN, RFLX CONF ( test code = 3514) NON-REACTIVE Mariusz DietrichACUTE HEPATITIS [id number] 00:00:00* Test Item Value Reference Range Interpretation Comme nts HEPATITIS A IgM (test code = 09451) NON-REACTIVE HEPATITIS B CORE IgM (test c ode = 4644) NON-REACTIVE HEPATITIS B SURF AG (test co de = 2739) NON-REACTIVE HEPATITIS C ANTIBODY (test c ode = 4675) NON-REACTIVE INTERPRETATION HEPATITIS A: (test code = 2552) (NOTE) INTERPRETATION HEPATITIS B: (test code = 04696) (NOTE) INTERPRETATION HEPATITIS C: (test code = 29525) (NOTE) Mariusz Adams [id number] 00:00:00* Test Item Value Reference Range Interpretation Comme nts RPR RESULT (test code = 3501) NON-REACTIVE RPR TITER (test code = 3500) NOT INDIC. TITER Mariusz DietrichVAGINAL PATHOGENS DNA [id number] 00:00:00* Test Item Value Reference Range Interpretation Comme nts DAMIR SPECIES (test code = 97539) NEGATIVE G. VAGINALIS (test code = 27096) NEGATIVE T. VAGINALIS (test code = 54001) NEGATIVE Mariusz DietrichHIV AB/AG COMBO RFLX [id number] 00:00:00* Test Item Value Reference Range Interpretation Comme nts HIV 1/2 4TH GEN, RFLX CONF ( test code = 3514) NON-REACTIVE Mariusz DietrichACUTE HEPATITIS [id number] 00:00:00* Test Item Value Reference Range Interpretation Comme nts HEPATITIS A IgM (test code = 72259) NON-REACTIVE HEPATITIS B CORE IgM (test c ode = 4644) NON-REACTIVE HEPATITIS B SURF AG (test co de = 2739) NON-REACTIVE HEPATITIS C ANTIBODY (test c ode = 4675) NON-REACTIVE INTERPRETATION HEPATITIS A: (test code = 2552) (NOTE) INTERPRETATION HEPATITIS B: (test code = 38508) (NOTE) INTERPRETATION HEPATITIS C: (test code = 87847) (NOTE) Mariusz [id number] 00:00:00* Test Item Value Reference Range Interpretation Comme nts RPR RESULT (test code = 3501) NON-REACTIVE RPR TITER (test code = 3500) NOT INDIC. TITER Mariusz DietrichVAGINAL PATHOGENS DNA [id number] 00:00:00* Test Item Value Reference Range Interpretation Comme nts DAMIR SPECIES (test code = 70344) NEGATIVE G. VAGINALIS (test code = 24969) NEGATIVE T. VAGINALIS (test code = 45700) NEGATIVE Mariusz DietrichHIV AB/AG COMBO RFLX [id number] 00:00:00* Test Item Value Reference Range Interpretation Comme nts HIV 1/2 4TH GEN, RFLX CONF ( test code = 3514) NON-REACTIVE [facility] [id number] 00:00:00* Test Item Value Reference Range Interpretation Comme nts HEPATITIS A IgM (test code = 27174) NON-REACTIVE HEPATITIS B CORE IgM (test c ode = 4644) NON-REACTIVE HEPATITIS B SURF AG (test co de = 2739) NON-REACTIVE HEPATITIS C ANTIBODY (test c ode = 4675) NON-REACTIVE INTERPRETATION HEPATITIS A: (test code = 2552) (NOTE) INTERPRETATION HEPATITIS B: (test code = 57042) (NOTE) INTERPRETATION HEPATITIS C: (test code = 95314) (NOTE) Mariusz Adams [id number] 00:00:00* Test Item Value Reference Range Interpretation Comme nts RPR RESULT (test code = 3501) NON-REACTIVE RPR TITER (test code = 3500) NOT INDIC. TITER Mariusz Adams AustinVAGINAL PATHOGENS DNA [id number] 00:00:00* Test Item Value Reference Range Interpretation Comme nts DAMIR SPECIES (test code = ) NEGATIVE G. VAGINALIS (test code = 98529) NEGATIVE T. VAGINALIS (test code = 12540) NEGATIVE Mariusz DietrichHIV AB/AG COMBO RFLX [id number] 00:00:00* Test Item Value Reference Range Interpretation Comme nts HIV 1/2 4TH GEN, RFLX CONF ( test code = 3514) NON-REACTIVE Mariusz DietrichACUTE HEPATITIS [id number] 00:00:00* Test Item Value Reference Range Interpretation Comme nts HEPATITIS A IgM (test code = 60296) NON-REACTIVE HEPATITIS B CORE IgM (test c ode = 4644) NON-REACTIVE HEPATITIS B SURF AG (test co de = 2739) NON-REACTIVE HEPATITIS C ANTIBODY (test c ode = 4675) NON-REACTIVE INTERPRETATION HEPATITIS A: (test code = 2552) (NOTE) INTERPRETATION HEPATITIS B: (test code = 15951) (NOTE) INTERPRETATION HEPATITIS C: (test code = 60430) (NOTE) Mariusz [id number] 00:00:00* Test Item Value Reference Range Interpretation Comme nts RPR RESULT (test code = 3501) NON-REACTIVE RPR TITER (test code = 3500) NOT INDIC. TITER Mariusz DietrichVAGINAL PATHOGENS DNA [id number] 00:00:00* Test Item Value Reference Range Interpretation Comme nts DAMIR SPECIES (test code = ) NEGATIVE G. VAGINALIS (test code = 36858) NEGATIVE T. VAGINALIS (test code = 69921) NEGATIVE Mariusz DietrichHIV AB/AG COMBO RFLX [id number] 00:00:00* Test Item Value Reference Range Interpretation Comme nts HIV 1/2 4TH GEN, RFLX CONF ( test code = 3514) NON-REACTIVE Mariusz DietrichACUTE HEPATITIS [id number] 00:00:00* Test Item Value Reference Range Interpretation Comme nts HEPATITIS A IgM (test code = 96445) NON-REACTIVE HEPATITIS B CORE IgM (test c ode = 4644) NON-REACTIVE HEPATITIS B SURF AG (test co de = 2739) NON-REACTIVE HEPATITIS C ANTIBODY (test c ode = 4675) NON-REACTIVE INTERPRETATION HEPATITIS A: (test code = 2552) (NOTE) INTERPRETATION HEPATITIS B: (test code = 36863) (NOTE) INTERPRETATION HEPATITIS C: (test code = 24035) (NOTE) Mariusz [id number] 00:00:00* Test Item Value Reference Range Interpretation Comme nts RPR RESULT (test code = 3501) NON-REACTIVE RPR TITER (test code = 3500) NOT INDIC. TITER Mariusz DietrichVAGINAL PATHOGENS DNA [id number] 00:00:00* Test Item Value Reference Range Interpretation Comme nts DAMIR SPECIES (test code = ) NEGATIVE G. VAGINALIS (test code = 37476) NEGATIVE T. VAGINALIS (test code = ) NEGATIVE Mariusz DietrichHIV AB/AG COMBO RFLX [id number] 00:00:00* Test Item Value Reference Range Interpretation Comme nts HIV 1/2 4TH GEN, RFLX CONF ( test code = 3514) NON-REACTIVE ACUTE HEPATITIS [id number] 00:00:00* Test Item Value Reference Range Interpretation Comme nts HEPATITIS A IgM (test code = 72843) NON-REACTIVE HEPATITIS B CORE IgM (test c ode = 4644) NON-REACTIVE HEPATITIS B SURF AG (test co de = 2739) NON-REACTIVE HEPATITIS C ANTIBODY (test c ode = 4675) NON-REACTIVE INTERPRETATION HEPATITIS A: (test code = 2552) (NOTE) INTERPRETATION HEPATITIS B: (test code = 68690) (NOTE) INTERPRETATION HEPATITIS C: (test code = 41632) (NOTE) [id number] 00:00:00* Test Item Value Reference Range Interpretation Comme nts RPR RESULT (test code = 3501) NON-REACTIVE RPR TITER (test code = 3500) NOT INDIC. TITER VAGINAL PATHOGENS DNA [id number] 00:00:00* Test Item Value Reference Range Interpretation Comme nts DAMIR SPECIES (test code = ) NEGATIVE G. VAGINALIS (test code = 55589) NEGATIVE T. VAGINALIS (test code = 77908) NEGATIVE SARS-CoV-2 (COVID-19), RT-PCR/[id number] 13:12:43* Test Item Value Reference Range Interpretation Comments SARS-CoV-2 INTERPRETATION (test code = 34994) NEGATIVE SEE NOTE SARS-CoV-2 R NA NOT [...] prevalence is high. SOURCE (test code = 32983) NASOPHARYNGEAL Note: Methodolog y is Ronit Jagdeep Real-Time RT-PCR. The expected result or reference range is NEGATIVE (Not Detected). For more information regarding COVID-19 testing to include clinicalinformation, methodology detail, intended use, FDA authorization andrecommended fact sheets for patients or healthcare providers, see [facility] Announcement: SARS-CoV-2 (COVID-19) by NAAT at URL below (note,fact sheets are provided by method given in report:[email or web address] Alternatively, see downloadable PDF fact sheet at:[email or web address] UNLESS OTHERWISE INDICATED, ALL TESTING PERFORMED [facility] PATHOLOGY [employer], [facility]. [address] [place] [address] CIGAR BINDER: ELIF MADISON M.D. [place] NUMBER [id number] [facility] [place]. [id number] SARS-CoV-2 (COVID-19) by RT-PCR (HIGH RISK)2021-09-16 00:00:00* Test Item Value Reference Range Interpretation Comme nts SARS-CoV-2 INTERPRETATION (test code = 66202) NEGATIVE SOURCE (test code = 87588) NASOPHARYNGEAL Mariusz Adams MlltbnXAEP-YsB-6 (COVID-19) by RT-PCR (HIGH RISK)2021-09-16 00:00:00* Test Item Value Reference Range Interpretation Comme nts SARS-CoV-2 INTERPRETATION (test code = 87837) NEGATIVE SOURCE (test code = 02623) NASOPHARYNGEAL Mariusz F MlokjrANPC-KpU-9 (COVID-19) by RT-PCR (HIGH RISK)2021-09-16 00:00:00* Test Item Value Reference Range Interpretation Comme nts SARS-CoV-2 INTERPRETATION (test code = 45727) NEGATIVE SOURCE (test code = 51993) NASOPHARYNGEAL Mariusz F EnzrpdXCBW-NuG-2 (COVID-19) by RT-PCR (HIGH RISK)2021-09-16 00:00:00* Test Item Value Reference Range Interpretation Comme nts SARS-CoV-2 INTERPRETATION (test code = 82613) NEGATIVE SOURCE (test code = 61318) NASOPHARYNGEAL Mariusz F PrkyalCOBG-LpM-0 (COVID-19) by RT-PCR (HIGH RISK)2021-09-16 00:00:00* Test Item Value Reference Range Interpretation Comme nts SARS-CoV-2 INTERPRETATION (test code = 71424) NEGATIVE SOURCE (test code = 36259) NASOPHARYNGEAL Mariusz F LjihicCTOP-EvY-5 (COVID-19) by RT-PCR (HIGH RISK)2021-09-16 00:00:00* Test Item Value Reference Range Interpretation Comme nts SARS-CoV-2 INTERPRETATION (test code = 37169) NEGATIVE SOURCE (test code = 79274) NASOPHARYNGEAL SARS-CoV-2 (COVID-19), RT-PCR/[id number] 13:37:12* Test Item Value Reference Range Interpretation Comments SARS-CoV-2 INTERPRETATION (test code = 28683) PRESUMPTIVE POSITIVE SEE NOTE A NOTE: PRESUMPTIVE POSITIVE RESULTS ARE MOST CONSISTENT WITH [id number] THE LIMIT OF DETECTION OF THE ASSAY. OTHER UNCOMMON POSSIBLECAUSES ARE A MUTATION IN ONE OF THE TARGET REGIONS, INFECTION WITHANOTHER SARBECOVIRUS OR LABORATORY ISSUES. CORRELATE WITH CLINICALHISTORY AND EPIDEMIOLOGIC FINDINGS. SOURCE (test code = 72374) NASOPHARYNGEAL Note: Methodolog y is Ronit Jagdeep Real-Time RT-PCR. The expected result or reference range is NEGATIVE (Not Detected). For more information regarding COVID-19 testing to include clinicalinformation , methodology detail, intended use, FDA authorization andrecommended fact sheets for patients or healthcare providers, see [facility] Announcement: SARS-CoV-2 (COVID-19) by NAAT at URL below (note,fact sheets are provided by method given in report:[email or web address] [email or web address] Alternatively, see downloadable PDF fact sheet at:[email or web address] Note: Methodology is Ronit Jagdeep Real-Time RT-PCR. The expected result or reference range is NEGATIVE (Not Detected). For more information regarding COVID-19 testing to include clinicalinformation , methodology detail, intended use, FDA authorization andrecommended fact sheets for patients or healthcare providers, see [facility] Announcement: SARS-CoV-2 (COVID-19) by NAAT at URL below (note,fact sheets are provided by method given in report:[email or web address]://[email or web address]. [email or web address]/Withingsi [email or web address]/client-[email or web address] ations/ Alternatively, see downloadable PDF fact sheet at:[email or web address] UNLESS OTHERWISE INDICATED, ALL TESTING PERFORMED [facility] [employer], [facility]. [address] [place] [address] CIGAR BINDER: ELIF MADISON M.D. CLIA NUMBER [id number] [facility] [place] [place]. [id number] SARS-CoV-2 (COVID-19) by RT-PCR (HIGH RISK)2021-09-09 00:00:00* Test Item Value Reference Range Interpretation Comme nts SARS-CoV-2 INTERPRETATION (test code = 21944) PRESUMPTIVE POSITIVE SOURCE (test code = 68683) NASOPHARYNGEAL Mariusz F QngzqhVTAS-WbW-3 (COVID-19) by RT-PCR (HIGH RISK)2021-09-09 00:00:00* Test Item Value Reference Range Interpretation Comme nts SARS-CoV-2 INTERPRETATION (test code = 55911) PRESUMPTIVE POSITIVE SOURCE (test code = 38532) NASOPHARYNGEAL Mariusz F UwudqxVFXI-XkD-5 (COVID-19) by RT-PCR (HIGH RISK)2021-09-09 00:00:00* Test Item Value Reference Range Interpretation Comme nts SARS-CoV-2 INTERPRETATION (test code = 49931) PRESUMPTIVE POSITIVE SOURCE (test code = 50068) NASOPHARYNGEAL Mariusz F MtafixXBCL-SdT-8 (COVID-19) by RT-PCR (HIGH RISK)2021-09-09 00:00:00* Test Item Value Reference Range Interpretation Comme nts SARS-CoV-2 INTERPRETATION (test code = 18777) PRESUMPTIVE POSITIVE SOURCE (test code = 13085) NASOPHARYNGEAL Mariusz F BewdtxDWUC-HyY-0 (COVID-19) by RT-PCR (HIGH RISK)2021-09-09 00:00:00* Test Item Value Reference Range Interpretation Comme nts SARS-CoV-2 INTERPRETATION (test code = 41927) PRESUMPTIVE POSITIVE SOURCE (test code = 21124) NASOPHARYNGEAL Mariusz F ZregfaQDMW-YuL-6 (COVID-19) by RT-PCR (HIGH RISK)2021-09-09 00:00:00* Test Item Value Reference Range Interpretation Comme nts SARS-CoV-2 INTERPRETATION (test code = 55928) PRESUMPTIVE POSITIVE SOURCE (test code = 43331) NASOPHARYNGEAL BASIC METABOLIC PANEL (NA, K, CL, CO2, GLUCOSE, BUN, CREATININE, CA)2021-08-25 01:45:53* Test Item Value Reference Range Interpretation Comme nts NA (test code = 2655232056) 136 mmol/L 135-145 K (test code = 1844929152) 4.1 mmol/L 3.5-5.0 CL (test code = 1757776085) 102 mmol/L 98-108 CO2 TOTAL (test code = 4708307858) 29 mmol/L 23-31 AGAP (test code = 0125119703) 2-16 BUN (test code = 6592630494) 9 mg/dL 7-23 GLUCOSE (test code = 3243057378) 92 mg/dL 70-110 CREATININE (test code = 5385119248) 0.54 mg/dL 0.50-1.04 CALCIUM (test code = 0563887669) 8.5 mg/dL 8.6-10.6 L eGFR (test code = 2089071846) mL/min/1.73m2 EMERALD (test code = EMERALD) Association [...] imaging tests). Lab Interpretation (test code = 68039-9) Abnormal [facility] WITH [id number] 01:34:37* Test Item Value Reference Range Interpretation Comme nts WBC (test code = 6690-2) See_Comment [Automated [employer]] The system which generated this result transmitted reference range: 4.30 - 11.10 10*3/?L. The reference range was not used to interpret this result as normal/abnormal. RBC (test code = 789-8) See_Comment [[employer]] The system which generated this result transmitted [...] 33.7 g/dL 31.6-35.1 RDW-SD (test code = 16732-9) 41.3 fL 39.0-49.9 RDW-CV (test code = 788-0) 12.7 % 12.0-15.5 PLT (test code = 777-3) See_Comment [Automated messa ge] The system which generated this result transmitted reference range: 166 - 358 10*3/?L. The reference range was not used to interpret this result as normal/abnormal. MPV (test code = 38988-1) 9.1 fL 9.5-12.9 L NRBC/100 WBC (test code = 3126041552) See_Comment [Automated [employer] ssage] The system which generated this result transmitted reference range: 0.0 - 10.0 /100 WBCs. The reference range was not used to interpret this result as normal/abnormal. NRBC x10^3 (test code = 0031681716) <0.01 See_Comment [Automated messa ge] The system which generated this result transmitted reference range: 10*3/?L. The reference range was not used to interpret this result as normal/abnormal. GRAN MAT (NEUT) % (test code = 770-8) 49.6 % IMM GRAN % (test code = 5547671970) 0.20 % LYMPH % (test code = 736-9) 39.5 % MONO % (test code = 5905-5) 9.0 % EOS % (test code = 713-8) 1.3 % BASO % (test code = 706-2) 0.4 % GRAN MAT x10^3(ANC) (test code = 2048554267) 2.36 10*3/uL 1.88-7.09 IMM GRAN x10^3 (test code = 7263243557) <0.03 0.00-0.06 LYMPH x10^3 (test code = 731-0) 1.88 10*3/uL 1.32-3.29 MONO x10^3 (test code = 742-7) 0.43 10*3/uL 0.33-0.92 EOS x10^3 (test code = 711-2) 0.06 10*3/uL 0.03-0.39 BASO x10^3 (test code = 704-7) <0.03 0.01-0.07 Lab Interpretation (test code = 19195-2) Abnormal [facility] [id number] 01:28:00* Test Item Value Reference Range Interpretation Comme nts POCT PREG (test code = 1605) negative On board controls acceptable with C Line (test code = 3574) present POCT PREG LOT # (test code = 3575) [id number] POCT PREG TEST DATE ( test code = 3576) 09/28/2022 Lab Interpretation (test cod e = 52341-4) [facility]2020-[facility]10 05:28:49* Test Item Value Reference Range Interpretation Comme nts AMPHET (test code = 9891361491) Negative Negative Cocaine Metabolite (test code = 8206547827) Negative Negative OPIATES (test code = 3042216507) Presumptive Positive Negative A THC (test code = 7569566580) Negative Negative EMERALD (test code = EMERALD) Urine Drug Cutoff Ranges Amphetamine: ? 1,000 ng/mLCocaine: ? 150 ng/mLOpiates: ? 300 ng/mLCannabinoids: ?50 ng/mL The results are to be used only for medical (i.e., treatment) purposes. Unconfirmed screening results must not be used for non-medical purposes (e.g., employment testing, legal testing). Lab Interpretation (test code = 47080-7) [facility] WO [id number] 04:25:17No acute intra-abdominal or pelvic abnormality. No genitourinary stones. Complex right ovarian cyst, likely hemorrhagic cyst measuring 3.8 cm RL: 6200AF: 99390 Patient name: LORNA SIMSB: 1995 25 years EXAMINATION: CT A BDOMEN [...] hemorrhagic cyst aisha suring 3.8 cmRL: 6200AFC: 52179 [facility]inalysis[facility]21-[facility]-14 02:12:28* Test Item Value Reference Range Interpretation Comme nts APPEARANCE (test code = 4546572015) Hazy Clear A COLOR (test code = 5793228452) Yellow Yellow PH (test code = 3586372291) 4.8-8.0 SP GRAVITY (test code = 1969139767) 1.003-1.030 GLU U QUAL (test code = 7147328924) Normal Normal BLOOD (test code = 3049275949) Negative Negative KETONES (test code = 3778470376) Negative Negative PROTEIN (test code = 2887-8) Negative Negative UROBILIN (test code = 7398056481) 4.0 mg/dL Normal A BILIRUBIN (test code = 3880913092) Negative Negative NITRITE (test code = 1192318209) Negative Negative LEUK HOLLEY (test code = 6284523242) Negative Negative RBC/HPF (test code = 3764916070) See_Comment H [Automated messa ge] The system which generated this result transmitted reference range: 0 - 3 HPF. The reference range was not used to interpret this result as normal/abnormal. WBC/HPF (test code = 8249781771) See_Comment [Automated messa ge] The system which generated this result transmitted reference range: 0 - 5 HPF. The reference range was not used to interpret this result as normal/abnormal. BACTERIA (test code = 3733836061) Negative Negative MUCOUS (test code = 7882147615) Slight Negative LPF A SQ EPITH (test code = 1739697115) HPF YEAST BUD (test code = 8008701367) See_Comment H [Automated messa ge] The system which generated this result transmitted reference range: <=1 HPF. The reference range was not used to interpret this result as normal/abnormal. Lab Interpretation (test code = 80269-5) [facility] Metabolic [id number] 02:09:13* Test Item Value Reference Range Interpretation Comme nts NA (test code = 5160388263) 137 mmol/L 135-145 K (test code = 8356173424) 3.7 mmol/L 3.5-5.0 CL (test code = 3839592511) 103 mmol/L 98-108 CO2 TOTAL (test code = 6379391726) 26 mmol/L 23-31 AGAP (test code = 8211845506) 2-16 BUN (test code = 4843617493) 12 mg/dL 7-23 GLUCOSE (test code = 7942432699) 92 mg/dL 70-110 CREATININE (test code = 6873282092) 0.62 mg/dL 0.50-1.04 TOTAL BILI (test code = 5397873231) 0.4 mg/dL 0.1-1.1 CALCIUM (test code = 4170459278) 8.9 mg/dL 8.6-10.6 T PROTEIN (test code = 0882684510) 7.1 g/dL 6.3-8.2 ALBUMIN (test code = 5600857385) 4.4 g/dL 3.5-5.0 ALK PHOS (test code = 2399130046) 79 U/L 34-122 ALTv (test code = 1742-6) 16 U/L 5-35 AST(SGOT) (test code = 2191320022) 23 U/L 13-40 eGFR (test code = 4520688410) mL/min/1.73m2 EMERALD (test code = EMERALD) Association [...] or urine or abnormalities in imaging tests). [facility], [id number] 02:08:38* Test Item Value Reference Range Interpretation Comme nts LIPASE (test code = 8744759665) 53 U/L 0-220 Lab Interpretation (test cod e = 00123-6) [facility] with Ddzrehqutuvp4737-74-04 02:00:16* Test Item Value Reference Range Interpretation Comme nts WBC (test code = 6690-2) See_Comment [Automated [employer] The system which generated this result transmitted reference range: 4.30 - 11.10 10*3/?L. The reference range was not used to interpret this result as normal/abnormal. RBC (test code = 789-8) See_Comment [Automated [employer] The system which generated this result transmitted [...] 33.6 g/dL 31.6-35.1 RDW-SD (test code = 88846-3) 42.6 fL 39.0-49.9 RDW-CV (test code = 788-0) 13.2 % 12.0-15.5 PLT (test code = 777-3) See_Comment [Automated [employer] ge] The system which generated this result transmitted reference range: 166 - 358 10*3/?L. The reference range was not used to interpret this result as normal/abnormal. MPV (test code = 85739-6) 9.5 fL 9.5-12.9 NRBC/100 WBC (test code = 0191850836) See_Comment [Automated me ssage] The system which generated this result transmitted reference range: 0.0 - 10.0 /100 WBCs. The reference range was not used to interpret this result as normal/abnormal. NRBC x10^3 (test code = 8664156308) <0.01 See_Comment [Automated me ssage] The system which generated this result transmitted reference range: 10*3/?L. The reference range was not used to interpret this result as normal/abnormal. GRAN MAT (NEUT) % (test code = 770-8) 59.6 % IMM GRAN % (test code = 8093513446) 0.30 % LYMPH % (test code = 736-9) 31.8 % MONO % (test code = 5905-5) 6.4 % EOS % (test code = 713-8) 1.4 % BASO % (test code = 706-2) 0.5 % GRAN MAT x10^3(ANC) (test code = 7783230818) 5.15 10*3/uL 1.88-7.09 IMM GRAN x10^3 (test code = 0709401224) 0.03 10*3/uL 0.00-0.06 LYMPH x10^3 (test code = 731-0) 2.75 10*3/uL 1.32-3.29 MONO x10^3 (test code = 742-7) 0.55 10*3/uL 0.33-0.92 EOS x10^3 (test code = 711-2) 0.12 10*3/uL 0.03-0.39 BASO x10^3 (test code = 704-7) 0.04 10*3/uL 0.01-0.07 [facility] [id number] 01:46:00* Test Item Value Reference Range Interpretation Comme nts POCT PREG (test code = 1605) negative On board controls acceptable with C Line (test code = 3574) present Lab Interpretation (test cod e = 74431-7) [facility] (COVID-19) by RT-PCR (HIGH RISK) 2020-12-03 00:00:00* Test Item Value Reference Range Interpretation Comme nts SARS-CoV-2 INTERPRETATION (t est code = 50989) NEGATIVE SOURCE (test code = 59179) NOT SPECIFIED Mariusz Adams RtmvepJQHG-ZqQ-6 (COVID-19) by RT-PCR (HIGH RISK)2020-12-03 00:00:00* Test Item Value Reference Range Interpretation Comme nts SARS-CoV-2 INTERPRETATION (t est code = 75950) NEGATIVE SOURCE (test code = 20648) NOT SPECIFIED Mariusz Adams EkbozaBWVB-OeS-3 (COVID-19) by RT-PCR (HIGH RISK)2020-12-03 00:00:00* Test Item Value Reference Range Interpretation Comme nts SARS-CoV-2 INTERPRETATION (t est code = 19904) NEGATIVE SOURCE (test code = 74978) NOT SPECIFIED Mariusz Adams NayhleUWLB-OdG-1 (COVID-19) by RT-PCR (HIGH RISK)2020-12-03 00:00:00* Test Item Value Reference Range Interpretation Comme nts SARS-CoV-2 INTERPRETATION (t est code = 22711) NEGATIVE SOURCE (test code = 47564) NOT SPECIFIED Mariusz Adams RvgmhvRSMU-BfI-4 (COVID-19) by RT-PCR (HIGH RISK)2020-12-03 00:00:00* Test Item Value Reference Range Interpretation Comme nts SARS-CoV-2 INTERPRETATION (t est code = 95605) NEGATIVE SOURCE (test code = 44122) NOT SPECIFIED Mariusz Adams CmjvjnRNLV-XqY-1 (COVID-19) by RT-PCR (HIGH RISK)2020-12-03 00:00:00* Test Item Value Reference Range Interpretation Comme nts SARS-CoV-2 INTERPRETATION (t est code = 42109) NEGATIVE SOURCE (test code = 64051) NOT SPECIFIED PAP TEST, THINPREP, [id number] 00:00:00* Test Item Value Reference Range Interpretation Comme nts SOURCE: (test code = 8001) Cervical/Endocervical SLIDES: (test code = 8011) 1 LMP: (test code = 8021) 03/16/17 SPECIMEN ADEQUACY: (test code = 30872) (NOTE) INTERPRETATION: (test code = 47849) NO EPITHELIAL ABNORMALITY SEE BELOW PROJECT MANAGER/DESIGN MANAGER: (test code = 8101) LITO Skaggs(ASCP) QC TECHNOLOGIST: (test code = 8111) LITO Woods(ASCP)IAC LOCATION: (test code = 46593) (NOTE) CPT: (test code = 8140) (NOTE) Mariusz Dorantes AND CHLAMYDIA AMPLIFIED, [id number] 00:00:00* Test Item Value Reference Range Interpretation Comme nts GONORRHEA, TMA (test code = 22607) NEGATIVE CHLAMYDIA, TMA (test code = 76863) NEGATIVE Mariusz DietrichPAP TEST, THINPREP, [id number] 00:00:00* Test Item Value Reference Range Interpretation Comme nts SOURCE: (test code = 8001) Cervical/Endocervical SLIDES: (test code = 8011) 1 LMP: (test code = 8021) 03/16/17 SPECIMEN ADEQUACY: (test code = 47167) (NOTE) INTERPRETATION: (test code = 87971) NO EPITHELIAL ABNORMALITY SEE BELOW PROJECT MANAGER/DESIGN MANAGER: (test code = 8101) LITO Skaggs(ASCP) QC TECHNOLOGIST: (test code = 8111) Jg Humphrey CT(ASCP)IAC LOCATION: (test code = 61244) (NOTE) CPT: (test code = 8140) (NOTE) Mariusz Dorantes AND CHLAMYDIA AMPLIFIED, [id number] 00:00:00* Test Item Value Reference Range Interpretation Comme nts GONORRHEA, TMA (test code = 91755) NEGATIVE CHLAMYDIA, TMA (test code = 31833) NEGATIVE Mariusz DietrichPAP TEST, THINPREP, [id number] 00:00:00* Test Item Value Reference Range Interpretation Comme nts SOURCE: (test code = 8001) Cervical/Endocervical SLIDES: (test code = 8011) 1 LMP: (test code = 8021) 03/16/17 SPECIMEN ADEQUACY: (test code = 25120) (NOTE) INTERPRETATION: (test code = 05407) NO EPITHELIAL ABNORMALITY SEE BELOW PROJECT MANAGER/DESIGN MANAGER: (test code = 8101) LITO Skaggs(ASCP) QC TECHNOLOGIST: (test code = 8111) Jg Humphrey CT(ASCP)IAC LOCATION: (test code = 67488) (NOTE) CPT: (test code = 8140) (NOTE) Mariusz DietrichGC AND CHLAMYDIA AMPLIFIED, [id number] 00:00:00* Test Item Value Reference Range Interpretation Comme nts GONORRHEA, TMA (test code = 95028) NEGATIVE CHLAMYDIA, TMA (test code = 05617) NEGATIVE Mariusz DietrichPAP TEST, THINPREP, [id number] 00:00:00* Test Item Value Reference Range Interpretation Comme nts SOURCE: (test code = 8001) Cervical/Endocervical SLIDES: (test code = 8011) 1 LMP: (test code = 8021) 03/16/17 SPECIMEN ADEQUACY: (test code = 36897) (NOTE) INTERPRETATION: (test code = 11840) NO EPITHELIAL ABNORMALITY SEE BELOW PROJECT MANAGER/DESIGN MANAGER: (test code = 8101) LITO Skaggs(ASCP) QC TECHNOLOGIST: (test code = 8111) LITO Woods(ASCP)IAC LOCATION: (test code = 35603) (NOTE) CPT: (test code = 8140) (NOTE) Mariusz DietrichGC AND CHLAMYDIA AMPLIFIED, [id number] 00:00:00* Test Item Value Reference Range Interpretation Comme nts GONORRHEA, TMA (test code = 09196) NEGATIVE CHLAMYDIA, TMA (test code = 37129) NEGATIVE Mariusz DietrichPAP TEST, THINPREP, [id number] 00:00:00* Test Item Value Reference Range Interpretation Comme nts SOURCE: (test code = 8001) Cervical/Endocervical SLIDES: (test code = 8011) 1 LMP: (test code = 8021) 03/16/17 SPECIMEN ADEQUACY: (test code = 07538) (NOTE) INTERPRETATION: (test code = 49015) NO EPITHELIAL ABNORMALITY SEE BELOW PROJECT MANAGER/DESIGN MANAGER: (test code = 8101) LITO Skaggs(ASCP) QC TECHNOLOGIST: (test code = 8111) LITO Woods(ASCP)IAC LOCATION: (test code = 89504) (NOTE) CPT: (test code = 8140) (NOTE) Mariuszkrystal DietrichGC AND CHLAMYDIA AMPLIFIED, [id number] 00:00:00* Test Item Value Reference Range Interpretation Comme nts GONORRHEA, TMA (test code = 61103) NEGATIVE CHLAMYDIA, TMA (test code = 71052) NEGATIVE Mariusz DietrichPAP TEST, THINPREP, [id number] 00:00:00* Test Item Value Reference Range Interpretation Comme nts SOURCE: (test code = 8001) Cervical/Endocervical SLIDES: (test code = 8011) 1 LMP: (test code = 8021) 03/16/17 SPECIMEN ADEQUACY: (test code = 34957) (NOTE) INTERPRETATION: (test code = 26877) NO EPITHELIAL ABNORMALITY SEE BELOW PROJECT MANAGER/DESIGN MANAGER: (test code = 8101) Claudia Rolle CT(ASCP) QC TECHNOLOGIST: (test code = 8111) LITO Woods(ASCP)IAC LOCATION: (test code = 03782) (NOTE) CPT: (test code = 8140) (NOTE) GC AND CHLAMYDIA AMPLIFIED, [id number] 00:00:00* Test Item Value Reference Range Interpretation Comme nts GONORRHEA, TMA (test code = 21804) NEGATIVE CHLAMYDIA, TMA (test code = 82903) NEGATIVE HIV AB/AG COMBO RFLX [id number] 00:00:00* Test Item Value Reference Range Interpretation Comme nts HIV 1/2 4TH GEN, RFLX CONF ( test code = 3514) NON-REACTIVE Mariusz [id number] 00:00:00* Test Item Value Reference Range Interpretation Comme nts RPR RESULT (test code = 3501) NON-REACTIVE RPR TITER (test code = 3500) NOT INDIC. TITER Mariusz DietrichACUTE HEPATITIS [id number] 00:00:00* Test Item Value Reference Range Interpretation Comme nts HEPATITIS A IgM (test code = 55399) NON-REACTIVE HEPATITIS B CORE IgM (test c ode = 4644) NON-REACTIVE HEPATITIS B SURF AG (test co de = 9139) NON-REACTIVE HEPATITIS C ANTIBODY (test c ode = 46) NON-REACTIVE INTERPRETATION HEPATITIS A: (test code = 2552) (NOTE) INTERPRETATION HEPATITIS B: (test code = 99613) (NOTE) INTERPRETATION HEPATITIS C: (test code = 26245) (NOTE) Mariusz F AustinHIV AB/AG COMBO RFLX [id number] 00:00:00* Test Item Value Reference Range Interpretation Comme nts HIV 1/2 4TH GEN, RFLX CONF ( test code = 3514) NON-REACTIVE Mariusz [id number] 00:00:00* Test Item Value Reference Range Interpretation Comme nts RPR RESULT (test code = 3501) NON-REACTIVE RPR TITER (test code = 3500) NOT INDIC. TITER Mariusz DietrichACUTE HEPATITIS [id number] 00:00:00* Test Item Value Reference Range Interpretation Comme nts HEPATITIS A IgM (test code = 39046) NON-REACTIVE HEPATITIS B CORE IgM (test c ode = 4644) NON-REACTIVE HEPATITIS B SURF AG (test co de = 2739) NON-REACTIVE HEPATITIS C ANTIBODY (test c ode = 4675) NON-REACTIVE INTERPRETATION HEPATITIS A: (test code = 2552) (NOTE) INTERPRETATION HEPATITIS B: (test code = 62900) (NOTE) INTERPRETATION HEPATITIS C: (test code = 03612) (NOTE) Mariusz DietrichHIV AB/AG COMBO RFLX [id number] 00:00:00* Test Item Value Reference Range Interpretation Comme nts HIV 1/2 4TH GEN, RFLX CONF ( test code = 3514) NON-REACTIVE Mariusz [id number] 00:00:00* Test Item Value Reference Range Interpretation Comme nts RPR RESULT (test code = 3501) NON-REACTIVE RPR TITER (test code = 3500) NOT INDIC. TITER Mariusz DietrichACUTE HEPATITIS [id number] 00:00:00* Test Item Value Reference Range Interpretation Comme nts HEPATITIS A IgM (test code = 71956) NON-REACTIVE HEPATITIS B CORE IgM (test c ode = 4644) NON-REACTIVE HEPATITIS B SURF AG (test co de = 2739) NON-REACTIVE HEPATITIS C ANTIBODY (test c ode = 4675) NON-REACTIVE INTERPRETATION HEPATITIS A: (test code = 2552) (NOTE) INTERPRETATION HEPATITIS B: (test code = 46451) (NOTE) INTERPRETATION HEPATITIS C: (test code = 30005) (NOTE) Mariusz Adams AustinHIV AB/AG COMBO RFLX [id number] 00:00:00* Test Item Value Reference Range Interpretation Comme nts HIV 1/2 4TH GEN, RFLX CONF ( test code = 3514) NON-REACTIVE Mariusz Adams [id number] 00:00:00* Test Item Value Reference Range Interpretation Comme nts RPR RESULT (test code = 3501) NON-REACTIVE RPR TITER (test code = 3500) NOT INDIC. TITER Mariusz DietrichACUTE HEPATITIS [id number] 00:00:00* Test Item Value Reference Range Interpretation Comme nts HEPATITIS A IgM (test code = 16223) NON-REACTIVE HEPATITIS B CORE IgM (test c ode = 4644) NON-REACTIVE HEPATITIS B SURF AG (test co de = 2739) NON-REACTIVE HEPATITIS C ANTIBODY (test c ode = 4675) NON-REACTIVE INTERPRETATION HEPATITIS A: (test code = 2552) (NOTE) INTERPRETATION HEPATITIS B: (test code = 35532) (NOTE) INTERPRETATION HEPATITIS C: (test code = 33230) (NOTE) Mariusz Adams AustinHIV AB/AG COMBO RFLX [id number] 00:00:00* Test Item Value Reference Range Interpretation Comme nts HIV 1/2 4TH GEN, RFLX CONF ( test code = 3514) NON-REACTIVE Mariusz Adams [id number] 00:00:00* Test Item Value Reference Range Interpretation Comme nts RPR RESULT (test code = 3501) NON-REACTIVE RPR TITER (test code = 3500) NOT INDIC. TITER Mariusz DietrichACUTE HEPATITIS [id number] 00:00:00* Test Item Value Reference Range Interpretation Comme nts HEPATITIS A IgM (test code = 60836) NON-REACTIVE HEPATITIS B CORE IgM (test c ode = 4644) NON-REACTIVE HEPATITIS B SURF AG (test co de = 2739) NON-REACTIVE HEPATITIS C ANTIBODY (test c ode = 4675) NON-REACTIVE INTERPRETATION HEPATITIS A: (test code = 2552) (NOTE) INTERPRETATION HEPATITIS B: (test code = 37932) (NOTE) INTERPRETATION HEPATITIS C: (test code = 56137) (NOTE) Mariusz Adams AustinHIV AB/AG COMBO RFLX [id number] 00:00:00* Test Item Value Reference Range Interpretation Comme nts HIV 1/2 4TH GEN, RFLX CONF ( test code = 3514) NON-REACTIVE [id number] 00:00:00* Test Item Value Reference Range Interpretation Comme nts RPR RESULT (test code = 3501) NON-REACTIVE RPR TITER (test code = 3500) NOT INDIC. TITER ACUTE HEPATITIS [id number] 00:00:00* Test Item Value Reference Range Interpretation Comme nts HEPATITIS A IgM (test code = 08292) NON-REACTIVE HEPATITIS B CORE IgM (test c ode = 4644) NON-REACTIVE HEPATITIS B SURF AG (test co de = 2739) NON-REACTIVE HEPATITIS C ANTIBODY (test c ode = 4675) NON-REACTIVE INTERPRETATION HEPATITIS A: (test code = 2552) (NOTE) INTERPRETATION HEPATITIS B: (test code = 10783) (NOTE) INTERPRETATION HEPATITIS C: (test code = 59304) (NOTE) Notes | Date/Time Note Provider Source [facility]2024-11-29 00:00:00| [facility]2024-09-27 00:00:00| [facility]2024-09-09 00:00:00| [facility]2024-09-03 00:00:00| [facility]"
[2024-12-01 18:02] LABS: Influenza A Ag Negative; Influenza B Ag Negative; SARS-CoV-2 Antigen Rapid Res Negative (Negative)
--- NOTE | 2024-12-01 18:06 | EDPHYS ---
Physician Documentation [facility] Name: Lilia Nunez Age: 29 yrs Sex: Female : 1995 Arrival Date: 12/01/2024 Time: 16:58 Bed 5 Private MD: ED Physician Nedra North HPI: 12/01 17:20 This 29 yrs old Female presents to ER via Ambulatory with complaints of Flu cp Symptoms. 17:20 The patient presents with sore throat. cp 17:20 The patient describes throat pain as constant. Onset: The symptoms/episode cp began/occurred 2 day(s) ago. Severity of symptoms: in the emergency department the symptoms are unchanged, despite home interventions. Associated signs and symptoms: Pertinent positives: cough, dysphagia, fever, Pertinent negatives diarrhea, earache, vomiting. Historical: - Allergies: 17:07 Oxycodone; iw - Immunization history:: Adult Immunizations unknown. - Infectious Disease History:: Denies. - Social history:: Smoking status: unknown. ROS: 17:25 Constitutional: Positive for chills, Negative for body aches, fever, poor PO intake, cp 17:25 Eyes: Negative for injury, pain, redness, and discharge, cp 17:25 ENT: Positive for sore throat, Negative for drainage from ear(s), ear pain, difficulty swallowing, difficulty handling secretions, 17:25 Respiratory: Positive for cough, 17:25 Abdomen/GI: Negative for abdominal pain, vomiting, diarrhea, constipation, 17:25 Skin: Negative for rash, 17:25 Neuro: Negative for altered mental status, headache, weakness, 17:25 All other systems are negative, Exam: 17:30 Head/Face: Normocephalic, atraumatic. cp 17:30 Constitutional: The patient appears in no acute distress, alert, awake, non-toxic, well developed, well nourished, 17:30 Eyes: Periorbital structures: appear normal, Conjunctiva: normal, no exudate, no injection, Sclera: no appreciated abnormality, Lids and lashes: appear normal, bilaterally, 17:30 ENT: External ear(s): are unremarkable, Ear canal(s): are normal, clear, TM's: dullness, bilaterally, Nose: is normal, Mouth: Lips: moist, Oral mucosa: moist, Posterior pharynx: Airway: no evidence of obstruction, patent, Tonsils: bilaterally enlarged, with erythema, no exudate, Uvula: midline, erythema, that is moderate, exudate, is not appreciated, 17:30 Neck: ROM/movement: Meningeal signs: are not present, nuchal rigidity, is not appreciated, Lymph nodes: lymphadenopathy is appreciated, anterior cervical nodes, 17:30 Chest/axilla: Inspection: normal, 17:30 Cardiovascular: Rate: normal, 17:30 Respiratory: the patient does not display signs of respiratory distress, Respirations: normal, no use of accessory muscles, no retractions, labored breathing, is not present, Breath sounds: are clear throughout, no decreased breath sounds, no stridor, no wheezing, 17:30 Abdomen/GI: Inspection: abdomen appears normal, Palpation: abdomen is soft and non-tender, in all quadrants, 17:30 Skin: no rash present. Vital Signs: 17:06 BP 128 / 96; Pulse 83; Resp 16; Temp 97.3; Pulse Ox 100% on R/A; Weight 68.95 kg; iw Height 5 ft. 2 in. ; Pain 8/10; 18:28 BP 122 / 89; Pulse 75; Resp 18; Temp 97.9; Pulse Ox 99% on R/A; ph 17:06 Body Mass Index 27.80 (68.95 kg, 157.48 cm) iw 17:06 Pain Scale: Adult iw MDM: 17:06 Medical Screening Exam initiated cp 18:05 Data reviewed: vital signs, nurses notes, lab test result(s), and as a result, I will cp discharge patient. 18:05 Differential diagnosis: group A strep tonsillitis, influenza, mononucleosis, cp peritonsillar abscess pharyngitis, retropharyngeal abcess. I considered the following discharge prescriptions or medication management in the emergency department Medications were administered in the Emergency Department. See MAR. Counseling: I had a detailed discussion with the patient and/or guardian regarding the historical points, exam findings, and any diagnostic results supporting the discharge/admit diagnosis, lab results, to return to the emergency department if symptoms worsen or persist or if there are any questions or concerns that arise at home. Response to treatment: the patient's symptoms have mildly improved after treatment, and as a result, I will discharge patient. 12/01 17:16 Order name: Group A Streptococcus Rapid cp 12/01 17:16 Order name: COVID-19 Ag + Flu A+B Ag cp 12/01 17:58 Order name: Throat Culture EDMS Administered Medications: 18:27 Drug: GI Cocktail without - (Maalox PO 30 ml, Lidocaine Mucous Membrane 2 % 15 ph ml) PO once Route: PO; 18:27 Follow up: Response: No adverse reaction ph Disposition Summary: 12/01/24 18:05 Discharge Ordered Notes: Location: Home cp Problem: new cp Symptoms: have improved cp Condition: Stable cp Diagnosis - Acute tonsillitis, unspecified cp - Cough cp Followup: cp - With: Private Physician - When: 2 - 3 days - Reason: Worsening of condition Discharge Instructions: - Discharge Summary Sheet cp - Tonsillitis cp - Cough, Adult cp Forms: - Medication Reconciliation Form cp - Antibiotic Education cp - Prescription Opioid Use cp - Patient Portal Instructions cp - Leadership Thank You Letter cp Prescriptions: - Bromfed DM 2-30-10 mg/5 mL Oral syrup - administer 10 milliliter ORAL route every 8 hours as needed for cold symptoms; cp 240 milliliter; Refills: 0, Product Selection Permitted - Amoxicillin 875 mg Oral Tablet - take 1 tablet ORAL route every 12 hours for 10 days; 20 tablet; Refills: 0, cp Product Selection Permitted Signatures: Dispatcher [employer] Marilyn Akbar, RN Maria Luisa Maier RN RN Misha Curry PA PA cp
--- NOTE | 2024-12-01 18:06 | ER ---
Nurse's Notes [facility] Name: Lilia Nunez Age: 29 yrs Sex: Female : 1995 Arrival Date: 12/01/2024 Time: 16:58 Bed 5 Private MD: Diagnosis: Acute tonsillitis, unspecified;Cough Presentation: 12/01 17:06 Chief complaint: Patient states: sore throat, chills, not eating, not feeling well, iw started Tuesday. Coronavirus screen: Client presents with at least one sign or symptom that may indicate coronavirus-19. Ebola Screen: No symptoms or risks identified at this time. Initial Sepsis Screen: Does the patient meet any 2 criteria? No. Patient's initial sepsis screen is negative. Does the patient have a suspected source of infection? No. Patient's initial sepsis screen is negative. Risk Assessment: Do you want to hurt yourself or someone else? Patient reports no desire to harm self or others. Onset of symptoms was November 30, 2024. 17:06 Method Of Arrival: Ambulatory iw 17:06 Acuity: TERRY 4 iw Historical: - Allergies: 17:07 Oxycodone; iw - Immunization history:: Adult Immunizations unknown. - Infectious Disease History:: Denies. - Social history:: Smoking status: unknown. Screenin:26 [facility] ED Fall Risk Assessment (Adult) History of falling in the last 3 months, ph including since admission No falls in past 3 months (0 pts) Confusion or Disorientation No (0 pts) Intoxicated or Sedated No (0 pts) Impaired Gait No (0 pts) Mobility Assist Device Used No (0 pt) Altered Elimination No (0 pt) Score/Fall Risk Level 0 - 2 = Low Risk Oriented to surroundings, Maintained a safe environment, Hourly rounding (assess needs \T\ fall precautionary measures) done. Abuse screen: Denies threats or abuse. Denies injuries from another. Nutritional screening: No deficits noted. Tuberculosis screening: No symptoms or risk factors identified. Assessment: 18:27 General: Appears in no apparent distress. Behavior is. Pain: Complains of pain in when ph swallowing. Neuro: Level of Consciousness is awake, alert, obeys commands, Oriented to person, place, time, situation. Cardiovascular: Capillary refill < 3 seconds in bilateral fingers. Respiratory: Reports cough that is Breath sounds are clear bilaterally. EENT: Reports pain when swallowing. Derm: Skin is pink, warm \T\ dry. Vital Signs: 17:06 BP 128 / 96; Pulse 83; Resp 16; Temp 97.3; Pulse Ox 100% on R/A; Weight 68.95 kg; iw Height 5 ft. 2 in. ; Pain 8/10; 18:28 BP 122 / 89; Pulse 75; Resp 18; Temp 97.9; Pulse Ox 99% on R/A; ph 17:06 Body Mass Index 27.80 (68.95 kg, 157.48 cm) iw 17:06 Pain Scale: Adult ED Course: 17:02 Patient arrived in ED. im 17:06 Misha Umaña PA is PHCP. cp 17:06 Nedra North MD is Attending Physician. cp 17:06 Triage completed. iw 17:07 Arm band placed on. iw 17:28 Marilyn Lovett, RN is Primary Nurse. iw 17:33 Maria Luisa Hdz RN is Primary Nurse. ph 17:35 COVID-19 Ag + Flu A+B Ag Sent. iw 17:35 Group A Streptococcus Rapid Sent. iw 18:27 Patient has correct armband on for positive identification. Call light in reach. ph 18:28 No provider procedures requiring assistance completed. Patient did not have IV access ph during this emergency room visit. Administered Medications: 18:27 Drug: GI Cocktail without - (Maalox PO 30 ml, Lidocaine Mucous Membrane 2 % 15 ph ml) PO once Route: PO; 18:27 Follow up: Response: No adverse reaction ph Medication: 18:27 VIS not applicable for this client. ph Outcome: 18:05 Discharge ordered by . cp 18:28 Discharged to home ambulatory, ph 18:28 Condition: good 18:28 Discharge instructions given to patient, Instructed on discharge instructions, follow up and referral plans. medication usage, Demonstrated understanding of instructions, follow-up care, medications, Prescriptions given X 2, 18:29 Patient left the ED. ph Signatures: Marilyn Lovett, LYNETTE RN Maria Luisa Hdz RN RN ph Misha Umaña PA PA cp Kathy Macedo im
[2024-12-01] MEDS ORDERED: LIDOCAINE VISCOUS 2% 10ML ORAL SOLN ONE (18:19)
[2024-12-01] MEDS ORDERED: MAGNES/ALUMIN/SIMET 30ML UCUP ONE (18:19)
[2024-12-01 18:35] VITALS: BP 122/89; TEMP 97.9; O2SAT 99
== END 2024-12-01 18:29 | disposition home or self-care (01) ==
LOC: ER 16:58
DX: J03.90 Acute tonsillitis, unspecified (principal); R05.9 Cough, unspecified; Z11.52 Encounter for screening for COVID-19; Z88.5 Allergy status to narcotic agent
CPT/HCPCS: 36415; 87070; 87428; 99284